=== PATIENT | male | born 1970 | race Caucasian/White ===

== ENCOUNTER → 2019-08-07 08:30 | Outpatient (BNVA) | payer MEDICAID, SELFPAY | PROVIDERS: PCP Nurse Practitioner Family; Visit Provider Internal Medicine Cardiovascular Disease | DX: E78.2 Mixed hyperlipidemia (principal) | CPT/HCPCS: 80061 ==

== ENCOUNTER 2019-09-19 08:47 | Outpatient (CLI) | payer MEDICAID, SELFPAY ==
--- NOTE | 2019-09-19 08:57 | CT_ITS ---
WS: [id number] CT CHEST WITHOUT INTRAVENOUS CONTRAST HISTORY: CHRONIC OBSTRUCTIVE PULMONARY DISEASE TECHNIQUE: Contiguous 2.5 mm axial imaging performed on the thorax. Coronal and sagittal reformats ar e submitted. All CT scans at [facility] use at least one of these dose optimization techn iques: automated exposure control; mA and/or kV adjustment per patient size (includes targeted exams where dose is matched to clinical indication); or iterative reconstruction. CONTRAST: None DLP: 1074.32 mGycm COMPARISON: 03/04/2017, CT abdomen 07/01/2019 Lungs and central airway: Marked pulmonary hyperexpansion. Numerous bulla and bleb noted throughout t he lungs but greatest in the upper lung coyne and greatest on the RIGHT. Largest bulla at the RIGHT apex measures 4.3 cm. No mass or pulmonary nodules. Benign granuloma in the LEFT lower lobe. 2 mm nod ule adjacent to the superior LEFT major fissure, likely a lymph node. Pleura: No pleural effusion. Heart and pericardium: Cardiac chamber size is normal. Small amount of pericardial thickening anterio rly. Mediastinum and emilie: No adenopathy. Vessels: Mild atherosclerosis aorta with no dilatation. Pulmonary artery size is equal to the aorta a nd normal in 2.4 cm. Moderate to heavy calcification in the [place] coronary arteries. Most significan t calcific burden is in the LEFT anterior descending coronary. Chest wall and lower neck: No soft tissue masses. Upper abdomen: Small hiatal hernia. Prior cholecystectomy. Decreased attenuation within the liver fro m hepatic steatosis. Liver is normal size. Spleen is normal size. No adrenal mass. Visualized pancrea s is normal. Low-attenuation mass in the mid RIGHT kidney measures 2.0 cm. There is an exophytic hyp odensity from the posterior mid LEFT kidney measuring 1.3 cm. Osseous structures: No destructive process. CT/CT chest wo con [id number] IMPRESSION: 1. Paraseptal and centrilobular emphysema and prior granulomatous disease. 2. No mass or pneumonia. 3. Moderate coronary artery atherosclerosis. 4. No pulmonary hypertension radiographically. 5. Prior cholecystectomy. 6. Low-attenuation masses in each kidney. Renal cysts were described on a CT f rom 07/01/2019.
== END 2019-09-19 08:48 | disposition home or self-care (01) ==
PROVIDERS: PCP Nurse Practitioner Family; Visit Provider Internal Medicine Critical Care Medicine
DX: J43.9 Emphysema, unspecified (principal); I25.10 Atherosclerotic heart disease of native coronary artery without angina pectoris; N28.89 Other specified disorders of kidney and ureter; Z90.49 Acquired absence of other specified parts of digestive tract
CPT/HCPCS: 71250

== ENCOUNTER 2019-10-06 10:04 | Outpatient (CLI) | payer MEDICAID, SELFPAY ==
--- NOTE | 2019-10-06 13:53 | PFTS_ITS ---
Date of Study:10/06/2019 Date of Dictation: MECHANICS: Forced vital capacity (FVC) is reduced. Forced expiratory volume in one second (FEV1) is reduced. FEV1/FVC is reduced. FLOW VOLUME LOOP: Reduced flow at all lung volumes. LUNG VOLUMES: Not measured DIFFUSING CAPACITY FOR CARBON MONOXIDE: Moderately reduced. INTERPRETATION: The pulmonary function tests are consistent with severe airflow obstruction. There is significant postbronchodilator response. Gas exchange (DLCO) is moderately reduced.. MTDD
== END 2019-10-06 10:05 | disposition home or self-care (01) ==
PROVIDERS: Family Provider Nurse Practitioner Family; PCP Nurse Practitioner Family; Visit Provider Internal Medicine Critical Care Medicine
DX: J44.9 Chronic obstructive pulmonary disease, unspecified (principal); F17.210 Nicotine dependence, cigarettes, uncomplicated
CPT/HCPCS: 94060; 94729; J7611

== ENCOUNTER 2019-10-07 10:00 | Outpatient (CLI) | payer MEDICAID, SELFPAY ==
--- NOTE | 2019-10-07 | XR_ITS ---
WS: [id number] KNEE RIGHT TECHNIQUE: 3 views of the right knee CLINICAL INFORMATION: CHRONIC RT KNEE PAIN COMPARISON: None. FINDINGS: Evidence of prior ACL repair. Mild narrowing of the medial lateral joint compartments with hypertroph ic changes along the joint line. Moderate narrowing of the patellofemoral articulation. No acute frac tures. No significant effusion. XR/XR knee RT 3V* [id number] IMPRESSION: Mild tricompartmental arthritis with evidence of prior ACL repair
== END 2019-10-07 10:01 | disposition home or self-care (01) ==
LOC: RADOUTREAD 10:44
PROVIDERS: Family Provider Nurse Practitioner Family; PCP Nurse Practitioner Family; Visit Provider Nurse Practitioner Family
DX: Z01.89 Encounter for other specified special examinations (principal)

== ENCOUNTER → 2019-11-07 09:01 | Outpatient (BNVA) | payer MEDICAID, SELFPAY | PROVIDERS: Family Provider Nurse Practitioner Family; PCP Nurse Practitioner Family; Referring Provider Nurse Practitioner Family; Visit Provider Orthopaedic Surgery | DX: M25.561 Pain in right knee (principal); M17.11 Unilateral primary osteoarthritis, right knee | CPT/HCPCS: 73560; 73565 ==

== ENCOUNTER 2020-01-08 11:47 | Emergency (ER) | payer MEDICAID, SELFPAY ==
[2020-01-08 12:09] VITALS: BP 96/67; PULSE 75; RESP 14; TEMP 36.3; O2SAT 97; BMI 31.4
--- NOTE | 2020-01-08 12:38 | XR_ITS ---
WS: [id number] Portable AP upright chest, 01/08/2020 Clinical Data: chest pain Comparison: PA and lateral chest, 07/04/2019. Findings: No nodules, masses or effusions are seen. The heart is normal. The pulmonary vascularity is not increased. No pneumonia or pneumothorax is seen. The patient's had an anterior cervical disc fus ion of the lower cervical spine. There is calcification between the left coracoid process and lateral left clavicle probably from an old injury. XR/XR chest 1V portable [id number] Impression: Negative chest.
[2020-01-08 13:46] LABS: Troponin(5th) Baseline 7 ng/L (0-15)
[2020-01-08 13:54] LABS: Alanine Aminotransferase 16 U/L (0-41); Albumin Level 4.4 g/dL (3.5-5.2); Alkaline Phosphatase 99 IU/L (40-130); Anion Gap 18.2 (5-19); Aspartate Amino Transferase 19 U/L (0-40); Blood Urea Nitrogen 8 mg/dL (6-20); Calcium 9.4 mg/dL (8.5-10.5); Carbon Dioxide 21 mmol/L (22-29); Chloride 105 mmol/L (98-107); Glomerular Filtration Rate 79.8 mL/min (90-130); Glucose 111 mg/dL (65-115); NT Pro B Type Natriuretic Pept 65 pg/mL (0-125); Osmolality Calculated 287 mOsm/kg (285-295); Potassium 4.2 mmol/L (3.5-5.1); Sodium 140 mmol/L (136-145); Total Bilirubin 0.6 mg/dL (0.15-1.2); Total Protein 7.4 g/dL (6.6-8.7)
[2020-01-08 15:27] LABS: Basophils # 0.1 10^3/uL (0.0-0.1); Basophils % 0.8 %; Eosinophils # 0.2 10^3/uL (0.0-0.8); Eosinophils % 2.2 %; Hematocrit 45.6 % (42.0-52.0); Hemoglobin 14.6 g/dL (11.7-16.6); Lymphocytes # 2.8 10^3/uL (0.8-4.8); Lymphocytes % 26.8 %; Mean Corpuscular Hemoglobin 32.3 pg (28.0-34.0); Mean Corpuscular Volume 100.9 fL (80-94); Mean Platelet Volume 9.5 fL (7.4-10.4); Monocytes # 0.7 10^3/uL (0.2-0.9); Monocytes % 6.9 %; Neutrophils # 6.5 10^3/uL (1.8-7.7); Neutrophils % 62.8 %; Nucleated Red Blood Cells % 0 %; Platelet Count 218 10^3/cmm (130-400); Red Blood Count 4.52 10^6/uL (4.1-5.3); White Blood Count 10.3 10^3/uL (4.0-10.0)
[2020-01-08 15:47] LABS: Troponin 5 2HR 7.47 ng/L (0-15); Troponin 5 2HR Delta 0.47 ABS# (0-10)
--- NOTE | 2020-01-08 15:48 | W.ED.SOB ---
HPI - SOB/Dyspnea General: Chief Complaint: Shortness of Breath/Dyspnea Stated Complaint: SOB Time Seen by Provider: 01/08/20 15:44 Source: patient Mode of arrival: ambulatory Limitations: no limitations History of Present Illness: HPI Narrative: Patient is a 49-year-old male who presents to ED today with a complaint of shortness of breath over the past 4 to 5 days. Patient chronically has shortness of breath due to predominant centrilobular and bullous emphysema. He has an extensive smoking history although states he is cutting back on this. His last cigarette was yesterday. Patient saw pulmonology/Dr. Champagne last month. He is supposed to be doing Pulmicort nebulizers twice daily and duo nebs 4 times daily. Patient admittedly does not do these as frequently as prescribed. He admits to a productive cough since last . He has not been running fevers. MD elicited complaint: shortness of breath and cough Pertinent past history: COPD Onset (ago): day(s) Associated symptoms: Reports chest congestion; Deny abdominal pain, chest pain, fever(s), lightheadedness, nausea, orthopnea, palpitations, syncope or vomiting Review of Systems Const: Denies: fever(s) or chills Eyes: Denies: change in vision or blurry vision ENMT: Denies: throat pain, enlarged tonsils or odynophagia Card: Denies: chest pain, palpitations, irregular heart rhythm, edema, swelling of feet/ankles, lightheadedness, syncope, pre-syncope, dyspnea on exertion, orthopnea, leg pain with exertion or acrocyanosis Resp: Reports: dyspnea, productive cough and chest congestion; Denies: wheezing, stridor or pain on inspiration GI: Denies: abdominal pain, nausea, vomiting, heartburn or diarrhea : Denies: flank pain, difficulty urinating or dysuria Musc: Denies: neck pain, back pain or joint pain Skin/Breast: Denies: rash Neuro: Denies: headache(s), numbness in extremities, weakness in extremities or sensory changes PFS ED PFSH: Medical History (Updated 01/08/20 @ 16:29 by JOSE Herrera) Anxiety and depression Atherosclerotic heart disease of [place] coronary artery without angina pectoris Cervical spondylosis Chronic migraine Chronic shortness of breath Essential (primary) hypertension Heart attack Hx of coronary angiogram Mixed hyperlipidemia Osteoarthritis Radiculopathy, lumbar region Seizure disorder SOB (shortness of breath) Torsion of appendix testis Surgical History H/O chest tube placement H/O left knee surgery H/O neck surgery H/O removal of testicle H/O right knee surgery History of appendectomy History of cholecystectomy Stented coronary artery Family History Brother Parkinson disease Cancer Family/Other Cancer Other CAD (coronary artery disease) Social History Smoking and tobacco status: current every day smoker cigarettes Years cigarettes smoked: 35 Quit status (tobacco): quit date established Planned quit date: 12/29/19 Smoking risk assessment/counseling performed?: Yes Alcohol intake: former Year of sobriety/quit date alcohol: 2009 Lives independently: Yes Household members: significant other Current occupational status: disabled History of recent travel: No Current gender identity: Male Physical Exam Const: COMMON NORMALS: no acute distress, patient oriented x3, no limitations and alert NUTRITIONAL APPEARANCE: obese HENMT: COMMON NORMALS: normocephalic and atraumatic HEAD & SCALP: normocephalic and atraumatic Chest: COMMONS NORMALS: normal inspection of the chest and normal palpation of entire chest wall Resp: COMMON NORMALS: normal respiratory effort EFFORT & INSPECTION: Yes able to speak in complete sentences AUSCULTATION: diminished lung sounds diffuse Cardio: COMMON NORMALS: regular rate and regular rhythm RATE: regular rate RHYTHM: regular rhythm Extremity: COMMON NORMALS: no clubbing, cyanosis or edema, no calf tenderness and no pedal edema Neuro: COMMON NORMALS: patient oriented x3 SENSORIUM/ORIENTATION: Yes alert Skin: COMMON NORMALS: no rashes or lesions noted GENERAL SKIN EXAM: no rashes or lesions noted Course Vital Signs: Vital signs: Vital Signs Temperature 97.4 F L 01/08/20 12:09 Pulse Rate 68 01/08/20 16:21 Respiratory Rate 16 01/08/20 16:10 Blood Pressure 96/67 01/08/20 12:09 Pulse Oximetry 95 01/08/20 16:10 MDM - SOB/Dyspnea MDM Narrative: Medical decision making narrative: Patient's labs including CBC, CMP, BNP, and troponin are all essentially normal at this time. CXR showing no acute findings. Patient is not febrile, tachycardic, or hypoxic. He unfortunately is continuing to smoke. He admittedly is not doing his nebulizer treatments as they are scheduled. Patient will be treated with Solu-Medrol and a DuoNeb treatment here and discharged home with a steroid taper and antibiotics. Recommend he contact Dr. Champagne as soon as possible for reevaluation. Return to ED precautions given. Lab Data: Labs: Lab Results 01/08/20 01/08/20 01/08/20 Range/Units 13:13 13:13 15:18 WBC (4.0-10.0) 10^3/ uL RBC (4.1-5.3) 10^6/u L Hgb (11.7-16.6) g/dL Hct (42.0-52.0) % MCV (80-94) fL MCH (28.0-34.0) pg MCHC (30.0-36.0) g/dL RDW (12.1-15.1) % Plt Count (130-400) 10^3/c mm MPV (7.4-10.4) fL Neut % (Auto) % Lymph % (Auto) % Whitley % (Auto) % Eos % (Auto) % Baso % (Auto) % Neut # (Auto) (1.8-7.7) 10^3/u L Lymph # (Auto) (0.8-4.8) 10^3/u L Whitley # (Auto) (0.2-0.9) 10^3/u L Eos # (Auto) (0.0-0.8) 10^3/u L Baso # (Auto) (0.0-0.1) 10^3/u L Nucleated RBC % (a uto) % Nucleated RBCs # /100WBC Sodium 140 (136-145) mmol/L Potassium 4.2 (3.5-5.1) mmol/L Chloride 105 (98-107) mmol/L Carbon Dioxide 21 L (22-29) mmol/L Anion Gap 18.2 (5-19) BUN 8 (6-20) mg/dL Creatinine 1.0 (0.7-1.2) mg/dL GFR Calculation 79.8 L (90-130) mL/min Glucose 111 (65-115) mg/dL Calculated Osmolal ity 287 (285-295) mOsm/k g Calcium 9.4 (8.5-10.5) mg/dL Total Bilirubin 0.6 (0.15-1.2) mg/dL AST 19 (0-40) U/L ALT 16 (0-41) U/L Alkaline Phosphata se 99 (40-130) IU/L Troponin T Baselin e 7 (0-15) ng/L Troponin T 120 Min [place] 7.47 (0-15) ng/L Delta Troponin T 0.47 (0-10) ABS# NT-Pro-B Natriuret Pep 65 (0-125) pg/mL Total Protein 7.4 (6.6-8.7) g/dL Albumin 4.4 (3.5-5.2) g/dL Globulin 3.0 (1.3-4.6) g/dL 01/08/20 Range/Units 15:18 WBC 10.3 H (4.0-10.0) 10^3/ uL RBC 4.52 (4.1-5.3) 10^6/u L Hgb 14.6 (11.7-16.6) g/dL Hct 45.6 (42.0-52.0) % MCV 100.9 H (80-94) fL MCH 32.3 (28.0-34.0) pg MCHC 32.0 (30.0-36.0) g/dL RDW 12.0 L (12.1-15.1) % Plt Count 218 (130-400) 10^3/c mm MPV 9.5 (7.4-10.4) fL Neut % (Auto) 62.8 % Lymph % (Auto) 26.8 % Whitley % (Auto) 6.9 % Eos % (Auto) 2.2 % Baso % (Auto) 0.8 % Neut # (Auto) 6.5 (1.8-7.7) 10^3/u L Lymph # (Auto) 2.8 (0.8-4.8) 10^3/u L Whitley # (Auto) 0.7 (0.2-0.9) 10^3/u L Eos # (Auto) 0.2 (0.0-0.8) 10^3/u L Baso # (Auto) 0.1 (0.0-0.1) 10^3/u L Nucleated RBC % (a uto) 0 % Nucleated RBCs # 0.0 /100WBC Sodium (136-145) mmol/L Potassium (3.5-5.1) mmol/L Chloride (98-107) mmol/L Carbon Dioxide (22-29) mmol/L Anion Gap (5-19) BUN (6-20) mg/dL Creatinine (0.7-1.2) mg/dL GFR Calculation (90-130) mL/min Glucose (65-115) mg/dL Calculated Osmolal ity (285-295) mOsm/k g Calcium (8.5-10.5) mg/dL Total Bilirubin (0.15-1.2) mg/dL AST (0-40) U/L ALT (0-41) U/L Alkaline Phosphata se (40-130) IU/L Troponin T Baselin e (0-15) ng/L Troponin T 120 Min [place] (0-15) ng/L Delta Troponin T (0-10) ABS# NT-Pro-B Natriuret Pep (0-125) pg/mL Total Protein (6.6-8.7) g/dL Albumin (3.5-5.2) g/dL Globulin (1.3-4.6) g/dL Imaging Data^: CXR: Radiologist's impression: [address] [address] XRay Report Signed Patient: Josue Cheng Unit #: [id number] : 1970 Age/Sex: 49 / M ADM Date: 01/08/20 Loc: ER Room/Bed: Attending Dr: Ordering Provider/Ordering MD: Marlen Alanis Date of Service: 01/08/20 Procedure(s): XR chest 1V portable [id number] Accession Number(s): [id number] Report Number: [id number] WS: [id number] Portable AP upright chest, 01/08/2020 Clinical Data: chest pain Comparison: PA and lateral chest, 07/04/2019. Findings: No nodules, masses or effusions are seen. The heart is normal. The pulmonary vascularity is not increased. No pneumonia or pneumothorax is seen. The patient's had an anterior cervical disc fusion of the lower cervical spine. There is calcification between the left coracoid process and lateral left clavicle probably from an old injury. XR/XR chest 1V portable [id number] Impression: Negative chest. Dictated By: Amanda Solorzano MD Signed By: Amanda Solorzano MD Signed Date/Time: 01/08/20 1331 DD/ 1329 EKG Data^: EKG 1: EKG Interpretation Date: 01/08/20 EKG interpretation time: 14:19 Interpretation: Sinus rhythm Rate [address] elevation or depression changes noted Discharge Plan Discharge Patient Disposition: Home, Self-Care Clinical Impression: COPD with acute exacerbation Condition: Stable Prescriptions: New prednisone 10 mg tablet 10 mg PO DAILY 7 Days Qty: 27 RF: 0 doxycycline monohydrate 100 mg capsule 100 mg PO Q12H 10 Days Qty: 20 RF: 0 No Action ezetimibe [Zetia] 10 mg tablet 10 mg PO QDAY RF: 0 metoprolol succinate 25 mg tablet extended release 24 hr 12.5 mg PO BID RF: 0 buspirone 30 mg tablet 30 mg PO BID RF: 0 fenofibrate nanocrystallized 48 mg tablet 48 mg PO QDAY RF: 0 clopidogrel 75 mg tablet 75 mg PO QDAY RF: 0 famotidine [Pepcid] 20 mg tablet 20 mg PO BID RF: 0 isosorbide mononitrate 30 mg tablet extended release 24 hr 30 mg PO QAM RF: 0 atorvastatin 80 mg tablet 80 mg PO QDAY RF: 0 quetiapine 50 mg tablet 50 mg PO QDAY RF: 0 aspirin [Adult Aspirin Regimen] 81 mg tablet,delayed release (DR/EC) 81 mg PO QDAY RF: 0 zonisamide 100 mg capsule 400 mg PO QDAY RF: 0 tamsulosin 0.4 mg capsule 0.4 mg PO QDAY RF: 0 nitroglycerin [Nitrostat] 0.4 mg tablet, sublingual 0.4 mg SUBLINGUAL Q5M PRNRF: 0 esomeprazole magnesium [Nexium] 40 mg capsule,delayed release(DR/EC) 40 mg PO QDAY RF: 0 omega-3 fatty acids 1,000 mg capsule 1,000 mg PO QDAY RF: 0 albuterol sulfate 2.5 mg /3 mL (0.083 %) solution for nebulization 2.5 mg INHALATION Q4H PRNRF: 0 albuterol sulfate [ProAir HFA] 90 mcg/actuation HFA aerosol inhaler 2 puff INHALATION Q6H PRNRF: 0 celecoxib [Celebrex] 200 mg capsule 200 mg PO BID RF: 0 budesonide [Pulmicort] 0.5 mg/2 mL suspension for nebulization 0.25 mg INHALATION BID RF: 0 ipratropium-albuterol 0.5 mg-3 mg(2.5 mg base)/3 mL solution for nebulization 3 ml INHALATION QID PRNRF: 0 furosemide [Lasix] 20 mg tablet 10 mg PO QAM PRNRF: 0 potassium chloride [Klor-Con 10] 10 mEq tablet extended release 10 meq PO QDAY PRNRF: 0 clonazepam 1 mg tablet 1 mg PO QID RF: 0 Perforomist 20 mcg/2 mL solution for nebulization 2 ml INHALATION Q12H 30 Days Qty: 120 RF: 3 revefenacin 175 mcg/3 mL solution for nebulization 175 mcg INHALATION DAILY 30 Days Qty: 90 RF: 3 nicotine 21 mg/24 hr patch 24 hour 1 patch TRANSDERMA Q24H 90 Days Qty: 28 RF: 3 Discharge Orders: Discharge Order (Routine); Ordered 01/08/20 Ordered By: Marlen Alanis Referrals: Amanda Simon FNP [Primary Care Provider] - Sushma Champagne MD [Physician] - Patient Instructions: Chronic Obstructive Pulmonary Disease (ED) Activity Restrictions/Additional Instructions: Please follow-up with Dr. Champagne soon as possible. Begin taking your nebulizers as scheduled. STOP SMOKING. You may return to the emergency department for worsening shortness of breath, difficulty breathing, chest pain, any other concerns you may have. Coding Level of Care Code ED Nurse'S Companion for 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
[2020-01-08 16:10] VITALS: PULSE 64; RESP 16; O2SAT 95
[2020-01-08] MEDS: ipratropium-albuterol 3 mL Neb INHALATION (16:18)
[2020-01-08 16:21] VITALS: PULSE 68
[2020-01-08 16:45] VITALS: BP 100/65; PULSE 76; RESP 20; O2SAT 97
--- NOTE | 2020-01-08 18:38 | ECG_ITS ---
Measurements Intervals [place] Rate: 66 P: 80 [place]: 168 QRS: 95 QRSD: 89 T: 57 QT: 363 QTc: 381 SINUS RHYTHM BORDERLINE RIGHT AXIS DEVIATION [QRS AXIS > 90] Compared to ECG 06/25/2019 02:01:41 T-wave abnormality no longer present Electronically Signed On 01-08-2020 21:02:40 CDT by Placido Garza M.D. [email or web address]
--- NOTE | 2020-01-09 10:13 | DCPLANNER ---
associate project manager had message to schedule a follow up appointment for patient with Dr. Champagne. associate project manager called [facility], spoke with Luana, gave clinic patients information. associate project manager was told that patients information would be printed and reviewed. Clinic will call patient with appointment information.
--- NOTE | 2020-01-13 10:19 | DCPLANNER ---
Patient had a follow up appointment scheduled for 01.13.20 with [facility], patient did attend the appointment.
== END 2020-01-08 16:47 | disposition home or self-care (01) ==
PROVIDERS: Emergency Provider Physician Assistant; PCP Nurse Practitioner Family
DX: J44.1 Chronic obstructive pulmonary disease with (acute) exacerbation (principal); Z79.02 Long term (current) use of antithrombotics/antiplatelets; Z79.82 Long term (current) use of aspirin; I10 Essential (primary) hypertension; E78.2 Mixed hyperlipidemia; F17.210 Nicotine dependence, cigarettes, uncomplicated
CPT/HCPCS: 12345; 36415; 71045; 80053; 83880; 84484; 85025; 93005; 94640; 96372; 99281; 99283; J2930

== ENCOUNTER → 2020-03-30 09:00 | Outpatient (BNVA) | payer MEDICAID, SELFPAY | PROVIDERS: PCP Nurse Practitioner Family; Visit Provider Internal Medicine | DX: Z11.59 Encounter for screening for other viral diseases (principal) | CPT/HCPCS: 87635 ==

== ENCOUNTER 2020-04-01 05:59 | Day surgery (SDC) | payer MEDICAID, SELFPAY ==
[2020-03-31 12:27] VITALS: BMI 32.8
[2020-04-01] VITALS (10 sets, daily range): BP systolic 89–115; BP diastolic 49–75; PULSE 45–78; RESP 15–20; TEMP 36.1–36.3; O2SAT 97–100
[2020-04-01] MEDS: sodium chloride 0.9% 1,000 ML 30 ML IV (06:00)
--- NOTE | 2020-04-01 06:39 | ANES.PREANE2 ---
Pre-Anesthetic Assessment Pre-Anesthetic Assessment: Height/Weight: Height 1.7 m Weight 95.254 kg Temp Pulse Resp BP Pulse Ox 97 F L 78 18 106/75 97 04/01/20 06:00 04/01/20 06:00 04/01/20 06:00 04/01/20 06:00 04/01/20 06:00 Preop Diagnosis: Osteoarthritis right knee Proposed Procedure: Operation Date: 04/01/20 07:00 Proposed Procedures p Knee Arthroscopy 23913 M17.11(Right) - Ismael Abel MD Familial anesthetic complications: none Was Beta Enriqueta taken within 24 hours: N/A Last intake: Intake NPO > 8 hrs Last Liquid Date 03/31/20 Last Solid Date 03/31/20 Social: Comment: former smoker (quit january 07) Exam: Pre-Anes Outpt Exam: alert, oriented x 3, clear to auscultation bilaterally and regular rate & rhythm Airway: Cervical ROM: Other (pins in neck, mod limited extension) MP: 4 Dentition: Other (missing) Additional comments: large neck circumference and tongue Pulmonary: Pulmonary: COPD Comments: very severe copd- may require lung transplant and has bullous disease CV/HEM: CV/HEM: Afib, CAD (2011 - plavix last taken ), HTN and OH Comments: recent visit to cardiology shows patent stents Metabolic: Metabolic: Morbid obesity Neuropsych: Neuropsych: Seizure (d/t gabapenting and tramadol) Anesthetic Plan: ASA status: 3 Risk of > 500 ml blood loss (7ml/kg in children): No PFSH Anesthesia PFSH: Medical History (Updated 03/02/20 @ 09:24 by Ismael Abel MD) Anxiety and depression Atherosclerotic heart disease of [place] coronary artery without angina pectoris Cervical spondylosis Chronic migraine Chronic shortness of breath Essential (primary) hypertension Heart attack Hx of coronary angiogram Mixed hyperlipidemia Osteoarthritis Radiculopathy, lumbar region Seizure disorder SOB (shortness of breath) Torsion of appendix testis Surgical History (Updated 03/02/20 @ 09:24 by Ismael Abel MD) H/O chest tube placement H/O left knee surgery H/O neck surgery H/O removal of testicle H/O right knee surgery History of appendectomy History of cholecystectomy Stented coronary artery Family History Brother Parkinson disease Cancer Family/Other Cancer Other CAD (coronary artery disease) Social History Smoking and tobacco status: former smoker Quit status (tobacco): has quit using tobacco Year quit tobacco: 2020 - 1PPD x 35 Years Smoking risk assessment/counseling performed?: Yes Alcohol intake: former Year of sobriety/quit date alcohol: 2009 Lives independently: Yes Household members: significant other Current occupational status: disabled History of recent travel: No Current gender identity: Male Data Anesthesia Cardiac Studies: No Data to Display
--- NOTE | 2020-04-01 06:55 | W.PM.OPSUD ---
Surgery/Procedure H&P Update DATE OF PROCEDURE: April 01, 2020 DATE H&P PERFORMED: 03/02/20 PREOP DIAGNOSIS: Osteoarthritis right knee PLANNED PROCEDURE: Operation Date: 04/01/20 07:00 Proposed Procedures p Knee Arthroscopy 64362 M17.11(Right) - Ismael Abel MD
--- NOTE | 2020-04-01 08:22 | SUR.PHASEI ---
PT AWAKE ALERT ON RA PT WAS A SPINAL ANESTHESIA, PT HAS NORMAL SENSATION TO T7 LEVEL VSS HR SB
--- NOTE | 2020-04-01 08:28 | SUR.PHASEI ---
SPINAL LEVEL NOW AT T-8 LEVEL, PT UNABLE TO MOVE TOES STILL, PT TAKING OCC ICE CHIPS HR SB NO ECTOPY , SATS 98% ON RA.
--- NOTE | 2020-04-01 08:29 | P.OP_ITS ---
Operative Report Date of procedure: April 01, 2020 Pre-op Diagnosis: Osteoarthritis right knee Post-op diagnosis: same Post-op Diagnosis: Complex degenerative tear right lateral meniscus, chondromalacia medial femoral condyle, lateral femoral condyle, patella and trochlea Post-op Findings: Same Procedure Done: Arthroscopic partial right lateral meniscectomy, chondroplasty right medial femoral condyle, patella, trochlea, lateral femoral condyle Implants: None Pathology: none sent Surgeon: Ismael Abel Anesthesia: General Estimated blood loss (mL): 5 Tourniquet time (min): 0 Complications: None Findings: The patient had complex tearing following the entirety of the poste rior lateral meniscus. He had areas of exposed subchondral bone over the substantial portion of the lateral femoral condyle with surrounding unstable margins and an approximately 2 x 2 centimeter area over the medial femoral condyle weightbearing aspect with surrounding unstable flaps and fissures.. He had exposed subchondral bone globally throughout the trochlea and fibrillation and fraying about the patella Condition: stable Disposition: PACU Procedure: The patient was taken to the operating room and given a spinal anesthesia. He was given 2 g of Ancef. His knee was infiltrated with 30 cc of 0.5% Marcaine. He was prepped and draped in the usual fashion. A timeout was performed. The knee was entered to the medial lateral portals. Initial attention was paid to the medial compartment. Over the central weightbearing aspect area of full-thickness cartilage loss with peripheral unstable flaps and fissures was identified. Utilizing the Bennett [employer] Nephew Werewolf probe the cartilage was debrided back to a stable margins leaving an approximately 2 cm in diameter area of central exposed subchondral bone. The leg was then placed in a [id number]-axau position attention focused on the lateral compartment. The lateral meniscus was probed revealing complex tearing. A central degenerative longitudinal tear created unstable central fragment in the posterior meniscus. Utilizing a basket this was debrided back and incisor shaver was used to remove all unstable torn tissue. The rim was then cleaned up with the werewolf probe. This resulted in near total excision of the posterior third of the lateral meniscus. Next attention was focused to the lateral femoral condyle. Utilizing a werewolf probe unstable margins about the area of lateral meniscal chondromalacia were debrided back to a stable rim. Fibrillation and fraying over the medial tibial plateau were similarly debrided. Final attention was focused on the patella. Peripheral unstable cartilage about the trochlea was debrided back with the Bennett [employer] Nephew Werewolf probe areas of full-thickness cartilage loss through the trochlea were noted centrally. Final debridement about the patella medially and laterally removing frayed and fibrillated tissues was accomplished with the Ebnnett and Nephew Werewolf probe as well. The knee was irrigated with saline. Portals were closed with 3-0 Prolene. Sterile dressings were applied. The patient was taken to recovery room in stable condition.
--- NOTE | 2020-04-01 08:48 | SUR.PHASEI ---
0840 PT AWAKE ALERT SITTING AT 45 DEGREES T13 SPINAL LEVEL NOW PT MOVING BILAT THIGHS PT TO OPS HANDOFF AT BEDSIDE
--- NOTE | 2020-04-01 09:20 | ANE.PACU2 ---
Inpatient post-anesthesia follow up: Airway intact: Yes Vital signs: Temperature 97.4 F Pulse Rate 51 Respiratory Rate 18 Blood Pressure 114/64 Pulse Oximetry 99 Oxygen Delivery Me thod Room Air Oxygen Flow Rate Fraction of Inspir ed Oxygen Hydration adequate: Yes Nausea and vomiting: No Pain level: 1 Mental status: Baseline
== END 2020-04-01 11:00 | disposition home or self-care (01) ==
PROVIDERS: PCP Nurse Practitioner Family; Visit Provider Orthopaedic Surgery
PROC: (CPT 29870; principal; 2020-04-01 07:00)
DX: S83.271A Complex tear of lateral meniscus, current injury, right knee, initial encounter (principal); M17.11 Unilateral primary osteoarthritis, right knee; J44.9 Chronic obstructive pulmonary disease, unspecified; I48.91 Unspecified atrial fibrillation; I25.10 Atherosclerotic heart disease of native coronary artery without angina pectoris; Z79.02 Long term (current) use of antithrombotics/antiplatelets; I10 Essential (primary) hypertension; I25.2 Old myocardial infarction; E66.01 Morbid (severe) obesity due to excess calories; E78.2 Mixed hyperlipidemia; G40.909 Epilepsy, unspecified, not intractable, without status epilepticus; Z95.5 Presence of coronary angioplasty implant and graft; Z87.891 Personal history of nicotine dependence; Z68.32 Body mass index [BMI] 32.0-32.9, adult
CPT/HCPCS: 29881; 12345; J0330; J0690; J2250; J2405; J2704; J3010; J3490; J7030

== ENCOUNTER 2020-05-02 11:49 | Emergency (ER) | payer MEDICAID, SELFPAY ==
[2020-05-02 11:59] VITALS: BP 125/91; PULSE 82; RESP 14; TEMP 36.1; O2SAT 98; BMI 31.3
== END 2020-05-02 12:47 | disposition left against medical advice (07) ==
LOC: ER 12:51
PROVIDERS: PCP Nurse Practitioner Family
DX: Z53.21 Procedure and treatment not carried out due to patient leaving prior to being seen by health care provider (principal)
CPT/HCPCS: 99281

== ENCOUNTER 2020-05-05 19:22 | Emergency (ER) | payer MEDICAID, SELFPAY ==
[2020-05-05] VITALS (8 sets, daily range): BP systolic 104–147; BP diastolic 73–89; PULSE 62–80; RESP 14–18; TEMP 36.6; O2SAT 93–97; BMI 31.3
[2020-05-05 19:52] LABS: Basophils # 0.1 10^3/uL (0.0-0.1); Basophils % 0.4 %; Eosinophils % 0.1 %; Hematocrit 45.1 % (42.0-52.0); Hemoglobin 15.7 g/dL (11.7-16.6); Lymphocytes # 2.3 10^3/uL (0.8-4.8); Lymphocytes % 16.2 %; Mean Corpuscular HGB Conc 34.8 g/dL (30.0-36.0); Mean Corpuscular Hemoglobin 32.6 pg (28.0-34.0); Mean Corpuscular Volume 93.6 fL (80-94); Mean Platelet Volume 9.3 fL (7.4-10.4); Monocytes # 0.9 10^3/uL (0.2-0.9); Neutrophils # 10.82 10^3/uL (1.8-7.7); Neutrophils % 76.9 %; Nucleated Red Blood Cells % 0 %; Platelet Count 307 10^3/cmm (130-400); Red Blood Count 4.82 10^6/uL (4.1-5.3); Red Cell Distribution Width 11.5 % (12.1-15.1); White Blood Count 14.1 10^3/uL (4.0-10.0)
--- NOTE | 2020-05-05 19:59 | CTR_ITS ---
PROCEDURE INFORMATION: Exam: CT Abdomen And Pelvis With Contrast Exam date and time: 05/05/2020 9:39 PM Age: 49 years old Clinical indication: Nausea and vomiting; Prior surgery; Surgery type: Appy, cabg, gb; Additional info: Abd pain TECHNIQUE: Imaging protocol: Computed tomography of the abdomen and pelvis with intravenous contrast. Radiation optimization: All CT scans at this facility use at least one of these dose optimization techniques: automated exposure control; mA and/or kV adjustment per patient size (includes targeted exams where dose is matched to clinical indication); or iterative reconstruction. Contrast material: OMNI 300; Contrast volume: 95 ml; Contrast route: INTRAVENOUS (IV); COMPARISON: CT abdomen pelvis w con* [id number] 07/01/2019 8:15 PM RADIATION DOSE METRICS: Total DLP (mGy-cm): 928.19 FINDINGS: Lungs: The lung bases are clear. Liver: The liver is mildly fatty. Gallbladder and bile ducts: The gallbladder is surgically absent. Pancreas: Normal. No ductal dilation. Spleen: Normal. No splenomegaly. Adrenals: Normal. No mass. Kidneys and ureters: Bilateral scattered simple renal cortical cysts up to 2.4 cm on the right. No significant change and follow-up is not recommended. Stomach and bowel: Scattered noninflamed distal colonic diverticula. The stomach is unremarkable. The duodenum and small bowel are normal. Surgical suture on the cecal tip is consistent with appendectomy. Appendix: No evidence of appendicitis. Intraperitoneal space: Unremarkable. No free air. No significant fluid collection. Vasculature: Scattered calcified plaques in the aorta and iliac arteries. Lymph nodes: Unremarkable. No enlarged lymph nodes. Urinary bladder: The urinary bladder wall is thickened similar to last year. This suggests chronic inflammation. Reproductive: Unremarkable as visualized. Bones/joints: Unremarkable. No acute fracture. Soft tissues: Unremarkable. CT/CT abdomen pelvis w con* [id number] IMPRESSION: 1. No acute abdominopelvic findings. 2. Chronic and incidental findings as described COMMENTS: Consistent with the [employer]'s Incidental Findings Committee white paper (J Am Diane Radiol 2018): Any incidental renal lesion less than 1 cm or classified as too small to characterize, or any incidental cystic renal lesion characterized as simple-appearing, is likely benign. No follow-up imaging is recommended for these lesions per consensus recommendations based on imaging criteria. Radiation Dose CTDIVOL = (mGy): DLP = 928.19 (mGy-cm)
[2020-05-05 20:08] LABS: Alanine Aminotransferase 30 U/L (0-41); Alkaline Phosphatase 81 IU/L (40-130); Anion Gap 19.4 (5-19); Aspartate Amino Transferase 28 U/L (0-40); Blood Urea Nitrogen 26 mg/dL (6-20); Carbon Dioxide 17 mmol/L (22-29); Chloride 99 mmol/L (98-107); Globulin 2.9 g/dL (1.3-4.6); Glomerular Filtration Rate 64.6 mL/min (90-130); Glucose 147 mg/dL (65-115); Lipase 27 U/L (13-60); Osmolality Calculated 281 mOsm/kg (285-295); Potassium 3.4 mmol/L (3.5-5.1); Sodium 132 mmol/L (136-145); Total Bilirubin 1.1 mg/dL (0.15-1.2); Total Protein 7.9 g/dL (6.6-8.7)
--- NOTE | 2020-05-05 20:08 | W.ED.NAVMDI ---
HPI - Nausea/Vomiting/Diarrhea General: Chief complaint: Nausea/Vomiting/Diarrhea Stated complaint: VOMITING X 5 DAYS Time Seen by Provider: 05/05/20 19:57 Source: patient Mode of arrival: ambulatory Limitations: no limitations History of Present Illness: HPI Narrative: 49-year-old male 49-year-old male states he is been having nausea and vomiting along with diarrhea over the last 5 days. He states his diarrhea is mostly resolved but is continued to have vomiting. He states he has a diffuse abdominal pain as well he rates a 5 out of 10. Denies any worsening or improving factors. Associated nausea: Yes Associated symtoms: Reports nausea; Denies chest pain, dysuria or headache(s) Review of Systems Const: Denies: fever(s), chills, body aches or change in appetite Eyes: Denies: blurry vision or eye discomfort ENMT: Denies: throat pain or dental pain Card: Denies: chest pain Resp: Denies: dyspnea GI: Reports: abdominal pain, nausea and vomiting : Denies: dysuria Musc: Denies: neck pain or back pain Skin/Breast: Denies: rash Neuro: Denies: headache(s) Psych: Denies: depression [place]/Lymph: Denies: easy bruising All/Imm: Denies: urticaria PFSH ED PFSH: Medical History Anxiety and depression Atherosclerotic heart disease of [place] coronary artery without angina pectoris Cervical spondylosis Chronic migraine Chronic shortness of breath Essential (primary) hypertension Heart attack Hx of coronary angiogram Mixed hyperlipidemia Osteoarthritis Radiculopathy, lumbar region Seizure disorder SOB (shortness of breath) Torsion of appendix testis Surgical History H/O chest tube placement H/O left knee surgery H/O neck surgery H/O removal of testicle H/O right knee surgery History of appendectomy History of cholecystectomy Stented coronary artery Family History Brother Parkinson disease Cancer Family/Other Cancer Other CAD (coronary artery disease) Social History Smoking and tobacco status: former smoker Quit status (tobacco): has quit using tobacco Year quit tobacco: 2019 - 1PPD x 35 Years Smoking risk assessment/counseling performed?: Yes Alcohol intake: former Year of sobriety/quit date alcohol: 2009 Lives independently: Yes Household members: significant other Current occupational status: disabled History of recent travel: No Current gender identity: Male Physical Exam Const: COMMON NORMALS: no acute distress, patient oriented x3 and healthy appearing HENMT: COMMON NORMALS: normocephalic and atraumatic HEAD & SCALP: normocephalic and atraumatic Eye: COMMON NORMALS: Equal, round and reactive pupils present and EOMs intact bilaterally PUPIL: Yes Equal, round and reactive pupils present Neck/C-Spine: COMMON NORMALS: full ROM and supple Chest: COMMONS NORMALS: normal inspection of the chest and normal palpation of entire chest wall Resp: COMMON NORMALS: normal respiratory effort, No retractions, No use of accessory muscles and clear to auscultation bilaterally AUSCULTATION: clear to auscultation bilaterally Cardio: COMMON NORMALS: regular rate, regular rhythm and No murmurs present (Cardio) RATE: regular rate RHYTHM: regular rhythm GI: COMMON NORMALS: Normal to inspection, nondistended, normoactive bowel sounds present, Soft to palpation, non-tender and no masses PALPATION: Yes Soft to palpation Extremity: COMMON NORMALS: normal to inspection and full ROM Neuro: COMMON NORMALS: patient oriented x3, moves all extremities and no focal motor deficits Psych: COMMON NORMALS: mental status grossly normal, Normal thought process present and cooperative THOUGHT PROCESS: Normal thought process present Skin: COMMON NORMALS: no rashes or lesions noted and no wounds GENERAL SKIN EXAM: no rashes or lesions noted Course Vital Signs: Vital signs: Vital Signs Temperature 97.8 F 05/05/20 19:46 Pulse Rate 71 05/05/20 23:55 Respiratory Rate 16 05/05/20 23:55 Blood Pressure 104/77 05/05/20 23:55 Pulse Oximetry 97 05/05/20 23:55 MDM - Nausea/Vomiting/Diarrhea MDM Narrative: Medical decision making narrative: Number presents here with abdominal pain. Patient's blood work and CT here are all normal and he feels much improved. We will place him on nausea medicine. He is to follow-up his PCP and return if worsening. He understands agrees to plan. Lab Data: Labs: Lab Results 05/05/20 05/05/20 Range/Units 19:43 19:43 WBC 14.1 H (4.0-10.0) 10^3/ uL RBC 4.82 (4.1-5.3) 10^6/u L Hgb 15.7 (11.7-16.6) g/dL Hct 45.1 (42.0-52.0) % MCV 93.6 (80-94) fL MCH 32.6 (28.0-34.0) pg MCHC 34.8 (30.0-36.0) g/dL RDW 11.5 L (12.1-15.1) % Plt Count 307 (130-400) 10^3/c mm MPV 9.3 (7.4-10.4) fL Neut % (Auto) 76.9 % Lymph % (Auto) 16.2 % [place] % (Auto) 6.0 % Eos % (Auto) 0.1 % Baso % (Auto) 0.4 % Neut # (Auto) 10.82 H (1.8-7.7) 10^3/u L Lymph # (Auto) 2.3 (0.8-4.8) 10^3/u L [place] # (Auto) 0.9 (0.2-0.9) 10^3/u L Eos # (Auto) 0.0 (0.0-0.8) 10^3/u L Baso # (Auto) 0.1 (0.0-0.1) 10^3/u L Nucleated RBC % (a uto) 0 % Nucleated RBCs # 0.0 /100WBC Sodium 132 L (136-145) mmol/L Potassium 3.4 L (3.5-5.1) mmol/L Chloride 99 (98-107) mmol/L Carbon Dioxide 17 L (22-29) mmol/L Anion Gap 19.4 H (5-19) BUN 26 H (6-20) mg/dL Creatinine 1.2 (0.7-1.2) mg/dL GFR Calculation 64.6 L (90-130) mL/min Glucose 147 H (65-115) mg/dL Calculated Osmolal ity 281 L (285-295) mOsm/k g Calcium 10.0 (8.5-10.5) mg/dL Total Bilirubin 1.1 (0.15-1.2) mg/dL AST 28 (0-40) U/L ALT 30 (0-41) U/L Alkaline Phosphata se 81 (40-130) IU/L Total Protein 7.9 (6.6-8.7) g/dL Albumin 5.0 (3.5-5.2) g/dL Globulin 2.9 (1.3-4.6) g/dL Lipase 27 (13-60) U/L Imaging Data^: CT Abd/Pel: Attestation: I personally reviewed and interpreted this imaging study as follows: Radiologist's impression: [place] [address] CT Scan Report Signed Patient: Josue Cheng Unit #: [id number] : 1970 Age/Sex: 49 / M ADM Date: 05/05/20 Loc: ER Room/Bed: Attending Dr: Ordering Provider/Ordering MD: Mercedes Gaines MD Date of Service: 05/05/20 Procedure(s): CT abdomen pelvis w con* [id number] Accession Number(s): [id number] Report Number: [id number] PROCEDURE INFORMATION: Exam: CT Abdomen And Pelvis With Contrast Exam date and time: 05/05/2020 9:39 PM Age: 49 years old Clinical indication: Nausea and vomiting; Prior surgery; Surgery type: Appy, cabg, gb; Additional info: Abd pain TECHNIQUE: Imaging protocol: Computed tomography of the abdomen and pelvis with intravenous contrast. Radiation optimization: All CT scans at this facility use at least one of these dose optimization techniques: automated exposure control; mA and/or kV adjustment per patient size (includes targeted exams where dose is matched to clinical indication); or iterative reconstruction. Contrast material: OMNI 300; Contrast volume: 95 ml; Contrast route: INTRAVENOUS (IV); COMPARISON: CT abdomen pelvis w con* [id number] 07/01/2019 8:15 PM RADIATION DOSE METRICS: Total DLP (mGy-cm): 928.19 FINDINGS: Lungs: The lung bases are clear. Liver: The liver is mildly fatty. Gallbladder and bile ducts: The gallbladder is surgically absent. Pancreas: Normal. No ductal dilation. Spleen: Normal. No splenomegaly. Adrenals: Normal. No mass. Kidneys and ureters: Bilateral scattered simple renal cortical cysts up to 2.4 cm on the right. No significant change and follow-up is not recommended. Stomach and bowel: Scattered noninflamed distal colonic diverticula. The stomach is unremarkable. The duodenum and small bowel are normal. Surgical suture on the cecal tip is consistent with appendectomy. Appendix: No evidence of appendicitis. Intraperitoneal space: Unremarkable. No free air. No significant fluid collection. Vasculature: Scattered calcified plaques in the aorta and iliac arteries. Lymph nodes: Unremarkable. No enlarged lymph nodes. Urinary bladder: The urinary bladder wall is thickened similar to last year. This suggests chronic inflammation. Reproductive: Unremarkable as visualized. Bones/joints: Unremarkable. No acute fracture. Soft tissues: Unremarkable. CT/CT abdomen pelvis w con* [id number] IMPRESSION: 1. No acute abdominopelvic findings. 2. Chronic and incidental findings as described Discharge Plan Discharge Patient Disposition: Home Clinical Impression: Nausea and vomiting Qualifiers: Vomiting type: unspecified Vomiting Intractability: non-intractable Qualified Code(s): R11.2 - Nausea with vomiting, unspecified Condition: Stable Prescriptions: New ondansetron 4 mg tablet,disintegrating 4 mg PO Q6H PRN (Reason: nausea and vomiting) Qty: 14 RF: 0 No Action ezetimibe [Zetia] 10 mg tablet 10 mg PO QDAY RF: 0 metoprolol succinate 25 mg tablet extended release 24 hr 12.5 mg PO BID RF: 0 buspirone 30 mg tablet 30 mg PO BID RF: 0 fenofibrate nanocrystallized 48 mg tablet 48 mg PO QDAY RF: 0 famotidine [Pepcid] 20 mg tablet 20 mg PO BID RF: 0 isosorbide mononitrate 30 mg tablet extended release 24 hr 30 mg PO QAM RF: 0 atorvastatin 80 mg tablet 80 mg PO QDAY RF: 0 quetiapine 50 mg tablet 50 mg PO QDAY RF: 0 aspirin [Adult Aspirin Regimen] 81 mg tablet,delayed release (DR/EC) 81 mg PO QDAY RF: 0 zonisamide 100 mg capsule 400 mg PO QDAY RF: 0 tamsulosin 0.4 mg capsule 0.4 mg PO QDAY RF: 0 nitroglycerin [Nitrostat] 0.4 mg tablet, sublingual 0.4 mg SUBLINGUAL Q5M PRN (Reason: Chest Pain) RF: 0 esomeprazole magnesium [Nexium] 40 mg capsule,delayed release(DR/EC) 40 mg PO QDAY RF: 0 omega-3 fatty acids 1,000 mg capsule 1,000 mg PO QDAY RF: 0 albuterol sulfate 2.5 mg /3 mL (0.083 %) solution for nebulization 2.5 mg INHALATION Q4H PRN (Reason: Shortness Of Breath) RF: 0 albuterol sulfate [ProAir HFA] 90 mcg/actuation HFA aerosol inhaler 2 puff INHALATION Q6H PRN (Reason: Shortness Of Breath) RF: 0 celecoxib [Celebrex] 200 mg capsule 200 mg PO BID RF: 0 budesonide [Pulmicort] 0.5 mg/2 mL suspension for nebulization 0.25 mg INHALATION BID RF: 0 ipratropium-albuterol 0.5 mg-3 mg(2.5 mg base)/3 mL solution for nebulization 3 ml INHALATION QID PRN (Reason: Shortness Of Breath) RF: 0 furosemide [Lasix] 20 mg tablet 10 mg PO QAM RF: 0 potassium chloride [Klor-Con 10] 10 mEq tablet extended release 10 meq PO QDAY RF: 0 clonazepam 1 mg tablet 1 mg PO QID RF: 0 Perforomist 20 mcg/2 mL solution for nebulization 2 ml INHALATION Q12H 30 Days Qty: 120 RF: 3 revefenacin 175 mcg/3 mL solution for nebulization 175 mcg INHALATION DAILY 30 Days Qty: 90 RF: 3 nicotine 21 mg/24 hr patch 24 hour 1 patch TRANSDERMA Q24H 90 Days Qty: 28 RF: 3 clopidogrel 75 mg tablet 75 mg PO QDAY Qty: 90 RF: 3 Discharge Orders: Discharge Order (Routine); Ordered 05/05/20 Ordered By: Mercedes Gaines Referrals: Amanda Simon FNP [Primary Care Provider] - 1-3 days Discharge Diet: Advance as tolerated Discharge Activity: Resume usual activity Patient Instructions: Acute Nausea and Vomiting (ED) Discharge Date/Time: 05/05/20 23:56 Coding Level of Care Code ED Radiation Officer for Chg 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
[2020-05-05] MEDS: ondansetron 2 mg/ML SDV 2 mL 4 MG IVP ×2 (20:50→22:57)
[2020-05-05] MEDS: sodium chloride 0.9% 1,000 ML 999 ML IV ×2 (20:50→22:32)
[2020-05-05] MEDS: HYDROmorphone 1 mg/mL INJ 1 mL 0.5 MG IVP (20:51)
[2020-05-05] MEDS: iohexol 300 mg/mL 100 mL Btl IV (22:13)
[2020-05-05] MEDS: HYDROmorphone 1 mg/mL INJ 1 mL IVP (22:57)
== END 2020-05-05 23:56 | disposition home or self-care (01) ==
PROVIDERS: Emergency Provider Emergency Medicine; PCP Nurse Practitioner Family
DX: R11.2 Nausea with vomiting, unspecified (principal); Z79.82 Long term (current) use of aspirin; I25.10 Atherosclerotic heart disease of native coronary artery without angina pectoris; I10 Essential (primary) hypertension; E78.2 Mixed hyperlipidemia; Z87.891 Personal history of nicotine dependence
CPT/HCPCS: 12345; 36415; 74177; 80053; 83690; 85025; 96361; 96374; 96375; 96376; 99283; J1170; J2405; J7030; Q9967

== ENCOUNTER → 2020-05-27 08:17 | Outpatient (BNVA) | payer MEDICAID, SELFPAY | PROVIDERS: PCP Nurse Practitioner Family; Visit Provider Urology | DX: N32.89 Other specified disorders of bladder (principal); N39.9 Disorder of urinary system, unspecified; N35.919 Unspecified urethral stricture, male, unspecified site | CPT/HCPCS: 81003 ==

== ENCOUNTER 2020-10-01 06:32 | Day surgery (SDC) | payer MEDICAID, SELFPAY ==
[2020-09-29 14:53] VITALS: BMI 31.1
--- NOTE | 2020-10-01 07:05 | ANES.PREANE2 ---
Pre-Anesthetic Assessment Pre-Anesthetic Assessment: Height/Weight: Height 1.7 m Weight 90.265 kg Preop Diagnosis: Osteoarthritis right knee Proposed Procedure: Operation Date: 10/01/20 08:00 Proposed Procedures p EGD/COLON R11.10 K52.9 [id number](Not Applicable) - Chip Wolf MD s Colonoscopy(Not Applicable) - Chip Wolf MD Familial anesthetic complications: None Was Beta Enriqueta taken within 24 hours: Yes Last intake: NPO > 8hrs Social: Social History: No alcohol and No tobacco Exam: Pre-Anes Outpt Exam: alert, oriented x 3, clear to auscultation bilaterally and regular rate & rhythm Airway: Cervical ROM: WNL MP: 4 Dentition: Other (missing) Pulmonary: Pulmonary: COPD CV/HEM: CV/HEM: CAD (3 stents ( all placed greater than 1 year ago - holding plavix)) and HTN Metabolic: Metabolic: Hyperlipidemia Musc/skel: Musc/skel: Lower Back Pain Neuropsych: Neuropsych: Seizure (last one 2013 (? unknown etiology - now on zonisamide, last took yesterday)) Anesthetic Plan: ASA status: 3 Anesthesia: MAC Risk of > 500 ml blood loss (7ml/kg in children): No PFSH Anesthesia PFSH: Medical History (Updated 05/27/20 @ 10:13 by Lito San MD) Anxiety and depression Atherosclerotic heart disease of [place] coronary artery without angina pectoris Bladder wall thickening Cervical spondylosis Chronic migraine Chronic shortness of breath Essential (primary) hypertension Heart attack Hx of coronary angiogram Mixed hyperlipidemia Osteoarthritis Radiculopathy, lumbar region Seizure disorder SOB (shortness of breath) Torsion of appendix testis Urethral stricture Surgical History H/O chest tube placement H/O left knee surgery H/O neck surgery H/O removal of testicle H/O right knee surgery History of appendectomy History of cholecystectomy Stented coronary artery Family History Brother Parkinson disease Cancer Family/Other Cancer Other CAD (coronary artery disease) Social History Smoking and tobacco status: former smoker Quit status (tobacco): has quit using tobacco Year quit tobacco: 2019 - 1PPD x 35 Years Smoking risk assessment/counseling performed?: Yes Alcohol intake: former Year of sobriety/quit date alcohol: 2009 Lives independently: Yes Household members: significant other Current occupational status: disabled History of recent travel: No Current gender identity: Male Data Anesthesia Cardiac Studies: No Data to Display
[2020-10-01 07:27] VITALS: BP 92/59; PULSE 59; RESP 18; TEMP 36.9; O2SAT 98
[2020-10-01] MEDS: sodium chloride 0.9% 1,000 ML 30 ML IV (07:30)
[2020-10-01 08:49] VITALS: BP 112/64; PULSE 61; RESP 16; TEMP 36.4; O2SAT 95
--- NOTE | 2020-10-01 08:49 | W.PM.OPSUD ---
Surgery/Procedure H&P Update DATE OF PROCEDURE: October 01, 2020 DATE H&P PERFORMED: 09/20/20 PREOP DIAGNOSIS: Vomiting, GERD, chronic diarrhea PLANNED PROCEDURE: Operation Date: 10/01/20 08:00 Proposed Procedures p EGD/COLON R11.10 K52.9 [id number](Not Applicable) - Chip Wolf MD s Colonoscopy(Not Applicable) - Chip Wolf MD Related Problem List Diagnoses (1) Chronic diarrhea: (2) Vomiting: (3) Heartburn:
--- NOTE | 2020-10-01 14:20 | ANE.PACU2 ---
Inpatient post-anesthesia follow up: Airway intact: Yes Vital signs: Temperature 97.5 F Pulse Rate 61 Respiratory Rate 16 Blood Pressure 112/64 Pulse Oximetry 95 Oxygen Delivery Me thod Oxygen Flow Rate Fraction of Inspir ed Oxygen Hydration adequate: Yes Pain level: 2 Mental status: Baseline
== END 2020-10-01 09:20 | disposition home or self-care (01) ==
PROVIDERS: PCP Nurse Practitioner Family; Visit Provider Family Medicine
PROC: 0DJ08ZZ Inspection of Upper Intestinal Tract, Via Natural or Artificial Opening Endoscopic (ICD-10-PCS; CPT 43235; principal; 2020-10-01 08:00)
PROC: 0DJD8ZZ Inspection of Lower Intestinal Tract, Via Natural or Artificial Opening Endoscopic (ICD-10-PCS; CPT 45378; 2020-10-01 08:00)
DX: K52.9 Noninfective gastroenteritis and colitis, unspecified (principal); R11.10 Vomiting, unspecified; R12 Heartburn; K21.00 Gastro-esophageal reflux disease with esophagitis, without bleeding; K29.80 Duodenitis without bleeding; Z95.5 Presence of coronary angioplasty implant and graft; I25.2 Old myocardial infarction; F17.210 Nicotine dependence, cigarettes, uncomplicated; Z79.82 Long term (current) use of aspirin; I25.10 Atherosclerotic heart disease of native coronary artery without angina pectoris; N40.0 Benign prostatic hyperplasia without lower urinary tract symptoms; I50.20 Unspecified systolic (congestive) heart failure; I11.0 Hypertensive heart disease with heart failure; J44.9 Chronic obstructive pulmonary disease, unspecified; E78.5 Hyperlipidemia, unspecified; M19.90 Unspecified osteoarthritis, unspecified site
CPT/HCPCS: 12345; 43239; 45380; 88305; 96360; J2704; J3490; J7030

== ENCOUNTER 2020-10-14 09:23 | Emergency (ER) | payer MEDICAID, SELFPAY ==
[2020-10-14 09:25] VITALS: BP 151/85; PULSE 62; RESP 16; TEMP 36.5; O2SAT 96; BMI 32.1
--- NOTE | 2020-10-14 09:43 | W.ED.NAVMDI ---
HPI - Nausea/Vomiting/Diarrhea General: Chief complaint: Nausea/Vomiting/Diarrhea Stated complaint: N/V, dehydration for 4-5 days Time Seen by Provider: 10/14/20 09:29 History of Present Illness: HPI Narrative: Patient comes in complain about nausea vomiting diarrhea since Sunday. Patient has had this problem ongoing for the last few months times. Patient is a daily marijuana user. Patient denies fever and chills. Recently had a GI scope done 2 weeks ago results negative. MD elicited complaint: nausea, vomiting and diarrhea Pertinent past history: cyclical vomiting Onset (ago): week(s) Associated nausea: Yes Location of pain: Diffuse Pain consistency: intermittent Severity: moderate Quality: cramping Exacerbating factors: none Relieving factors: none Associated symtoms: Reports no associated symptoms and nausea; Denies anxiety, change in vision, chest pain or headache(s) Review of Systems Const: Denies: fever(s), chills or body aches Eyes: Denies: change in vision or blurry vision ENMT: Denies: throat pain or nasal congestion Card: Denies: chest pain or dyspnea on exertion Resp: Denies: dyspnea, productive cough or non-productive cough GI: Reports: abdominal pain, nausea, vomiting, diarrhea and other (Smokes marijuana daily) : Denies: difficulty urinating Musc: Denies: extremity pain Skin/Breast: Denies: rash Neuro: Denies: headache(s) Psych: Denies: anxiety or depression Trevon/Lymph: Denies: easy bruising PFSH ED PFSH: Medical History (Updated 10/14/20 @ 11:50 by AWA Liao) Anxiety and depression Atherosclerotic heart disease of [place] coronary artery without angina pectoris Bladder wall thickening Cervical spondylosis Chronic migraine Chronic shortness of breath Essential (primary) hypertension Heart attack Hx of coronary angiogram Mixed hyperlipidemia Osteoarthritis Radiculopathy, lumbar region Seizure disorder SOB (shortness of breath) Torsion of appendix testis Urethral stricture Surgical History H/O chest tube placement H/O left knee surgery H/O neck surgery H/O removal of testicle H/O right knee surgery History of appendectomy History of cholecystectomy Stented coronary artery Family History Brother Parkinson disease Cancer Family/Other Cancer Other CAD (coronary artery disease) Social History Smoking and tobacco status: former smoker Quit status (tobacco): has quit using tobacco Year quit tobacco: 2020 - 1PPD x 35 Years Smoking risk assessment/counseling performed?: Yes Alcohol intake: former Year of sobriety/quit date alcohol: 2009 Lives independently: Yes Household members: significant other Current occupational status: disabled History of recent travel: No Current gender identity: Male Physical Exam Const: COMMON NORMALS: no acute distress, average body habitus and patient oriented x3 HENMT: COMMON NORMALS: normocephalic HEAD & SCALP: normal to inspection and normocephalic FACE & SINUS: normal facial exam Eye: COMMON NORMALS: conjunctivae normal GENERAL EYE: appearance normal, both eyes and all related structures CONJUNCTIVA: Yes conjunctivae normal Neck/C-Spine: COMMON NORMALS: no JVD Chest: COMMONS NORMALS: normal inspection of the chest Resp: COMMON NORMALS: normal respiratory effort and clear to auscultation bilaterally AUSCULTATION: clear to auscultation bilaterally Cardio: COMMON NORMALS: no JVD, regular rate and regular rhythm RATE: regular rate RHYTHM: regular rhythm GI: COMMON NORMALS: Normal to inspection, nondistended, normoactive bowel sounds present PALPATION: Yes Tenderness to palpation present (GI) (Mild generalized) Extremity: COMMON NORMALS: normal to inspection and full ROM Neuro: COMMON NORMALS: patient oriented x3 Course Vital Signs: Vital signs: Vital Signs Temperature 97.7 F 10/14/20 09:25 Pulse Rate 60 10/14/20 12:02 Respiratory Rate 18 10/14/20 12:02 Blood Pressure 149/86 10/14/20 12:02 Pulse Oximetry 97 10/14/20 12:02 MDM - Nausea/Vomiting/Diarrhea MDM Narrative: Medical decision making narrative: Tolerated fluids well. UA shows mild hematuria. Blood work showed mild hyponatremia lipase was normal. Discussed marijuana use with patient and that stopping marijuana use will probably benefit him in the long run. Is to drink some Gatorade type electrolyte solutions when you get home take medicine as directed follow-up family medical provider. Differential Diagnosis: N/V/D differential diagnosis: Likely food poisoning, gastroenteritis and drug-induced nausea and vomiting Lab Data: Labs: Lab Results 10/14/20 10/14/20 10/14/20 Range/Units 10:45 10:45 11:11 WBC 13.6 H (4.0-10.0) 10^3/ uL RBC 4.88 (4.1-5.3) 10^6/u L Hgb 16.1 (11.7-16.6) g/dL Hct 46.4 (42.0-52.0) % MCV 95.1 H (80-94) fL MCH 33.0 (28.0-34.0) pg MCHC 34.7 (30.0-36.0) g/dL RDW 11.9 L (12.1-15.1) % Plt Count 218 (130-400) 10^3/c mm MPV 9.2 (7.4-10.4) fL Neut % (Auto) 75.8 % Lymph % (Auto) 16.6 % [place] % (Auto) 6.5 % Eos % (Auto) 0.4 % Baso % (Auto) 0.4 % Neut # (Auto) 10.30 H (1.8-7.7) 10^3/u L Lymph # (Auto) 2.3 (0.8-4.8) 10^3/u L [place] # (Auto) 0.9 (0.2-0.9) 10^3/u L Eos # (Auto) 0.1 (0.0-0.8) 10^3/u L Baso # (Auto) 0.1 (0.0-0.1) 10^3/u L Nucleated RBC % (a uto) 0 % Nucleated RBCs # 0.0 /100WBC Sodium 131 L (136-145) mmol/L Potassium 3.5 (3.5-5.1) mmol/L Chloride 97 L (98-107) mmol/L Carbon Dioxide 21 L (22-29) mmol/L Anion Gap 16.5 (5-19) BUN 23 H (6-20) mg/dL Creatinine 1.0 (0.7-1.2) mg/dL GFR Calculation 79.8 L (90-130) mL/min Glucose 115 (65-115) mg/dL Calculated Osmolal ity 277 L (285-295) mOsm/k g Calcium 9.3 (8.5-10.5) mg/dL Total Bilirubin 1.2 (0.15-1.2) mg/dL AST 26 (0-40) U/L ALT 20 (0-41) U/L Alkaline Phosphata se 81 (40-130) IU/L Total Protein 7.9 (6.6-8.7) g/dL Albumin 4.8 (3.5-5.2) g/dL Globulin 3.1 (1.3-4.6) g/dL Lipase 24 (13-60) U/L Urine Color Yellow (Yellow) Urine Appearance Clear (CLEAR) Urine pH 5 (5-7) Ur Specific Gravit y 1.025 (1.005-1.030) Urine Protein Trace (Negative) Urine Glucose (UA) Norm (Normal) Urine Ketones Negative (Negative) Urine Blood 2+ H (Negative) Urine Nitrate Negative (Negative) Urine Bilirubin 1+ H (Negative) Urine Urobilinogen 1 H (Negative) mg/dL Ur Leukocyte Jennifer ase Trace H (Negative) Urine RBC 0-4 H (0-2) /hpf Urine WBC 0-4 H (0-5) /hpf Ur Squamous Epith Cells 0-4 H (0-5) /hpf Amorphous Sediment Not Reportable Urine Bacteria Trace (NONE) /hpf Discharge Plan Discharge Patient Disposition: Home Clinical Impression: Cyclic vomiting syndrome, Cannabis abuse Hematuria Qualifiers: Hematuria type: benign essential microscopic Qualified Code(s): R31.1 - Benign essential microscopic hematuria Condition: Stable Prescriptions: New Zofran 4 mg tablet 4 mg PO Q8H 3 Days Qty: 9 RF: 0 No Action metoprolol succinate 25 mg tablet extended release 24 hr 12.5 mg PO BID RF: 0 buspirone 30 mg tablet 30 mg PO BID RF: 0 fenofibrate nanocrystallized 48 mg tablet 48 mg PO QDAY RF: 0 famotidine [Pepcid] 20 mg tablet 20 mg PO BID RF: 0 isosorbide mononitrate 30 mg tablet extended release 24 hr 30 mg PO QAM RF: 0 atorvastatin 80 mg tablet 80 mg PO QDAY RF: 0 quetiapine 50 mg tablet 50 mg PO QDAY RF: 0 aspirin [Adult Aspirin Regimen] 81 mg tablet,delayed release (DR/EC) 81 mg PO QDAY RF: 0 zonisamide 100 mg capsule 400 mg PO QDAY RF: 0 tamsulosin 0.4 mg capsule 0.4 mg PO QDAY RF: 0 nitroglycerin [Nitrostat] 0.4 mg tablet, sublingual 0.4 mg SUBLINGUAL Q5M PRN (Reason: Chest Pain) RF: 0 omega-3 fatty acids 1,000 mg capsule 1,000 mg PO QDAY RF: 0 albuterol sulfate 2.5 mg /3 mL (0.083 %) solution for nebulization 2.5 mg INHALATION Q4H PRN (Reason: Shortness Of Breath) RF: 0 albuterol sulfate [ProAir HFA] 90 mcg/actuation HFA aerosol inhaler 2 puff INHALATION Q6H PRN (Reason: Shortness Of Breath) RF: 0 celecoxib [Celebrex] 200 mg capsule 200 mg PO BID RF: 0 budesonide [Pulmicort] 0.5 mg/2 mL suspension for nebulization 0.25 mg INHALATION BID RF: 0 ipratropium-albuterol 0.5 mg-3 mg(2.5 mg base)/3 mL solution for nebulization 3 ml INHALATION QID PRN (Reason: Shortness Of Breath) RF: 0 potassium chloride [Klor-Con 10] 10 mEq tablet extended release 10 meq PO QDAY RF: 0 clonazepam 1 mg tablet 1 mg PO QID RF: 0 citalopram 20 mg tablet 20 mg PO DAILY RF: 0 clopidogrel 75 mg tablet 75 mg PO QDAY Qty: 90 RF: 3 ondansetron 4 mg tablet,disintegrating 4 mg PO Q6H PRN (Reason: nausea and vomiting) Qty: 14 RF: 0 Discharge Orders: Discharge ED (Routine); Ordered 10/14/20 Ordered By: Chad Butcher Referrals: Amanda Simon FNP [Primary Care Provider] - Discharge Diet: Usual diet Discharge Activity: Increase activity as tolerated Patient Instructions: Cannabis Abuse (ED), Vomiting - Adult Activity Restrictions/Additional Instructions: Stop using marijuana. Drink plenty of fluids. Follow-up your family medical provider if no significant provement. Coding Level of Care Code ED Peach Grower for Chg 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
[2020-10-14] MEDS: SUMAtriptan 6 mg/0.5 mL SDV SUBCUT (09:50)
[2020-10-14] MEDS: ketorolac 30 mg/mL INJ IVP (09:50)
[2020-10-14] MEDS: promethazine 25 mg/mL SDV 1 mL IM (09:51)
[2020-10-14 10:57] LABS: Basophils # 0.1 10^3/uL (0.0-0.1); Basophils % 0.4 %; Eosinophils # 0.1 10^3/uL (0.0-0.8); Eosinophils % 0.4 %; Hematocrit 46.4 % (42.0-52.0); Hemoglobin 16.1 g/dL (11.7-16.6); Lymphocytes # 2.3 10^3/uL (0.8-4.8); Lymphocytes % 16.6 %; Mean Corpuscular HGB Conc 34.7 g/dL (30.0-36.0); Mean Corpuscular Volume 95.1 fL (80-94); Mean Platelet Volume 9.2 fL (7.4-10.4); Monocytes # 0.9 10^3/uL (0.2-0.9); Monocytes % 6.5 %; Neutrophils % 75.8 %; Nucleated Red Blood Cells % 0 %; Platelet Count 218 10^3/cmm (130-400); Red Blood Count 4.88 10^6/uL (4.1-5.3); Red Cell Distribution Width 11.9 % (12.1-15.1); White Blood Count 13.6 10^3/uL (4.0-10.0)
[2020-10-14] MEDS: sodium chloride 0.9% 1,000 ML 999 ML IV (10:58)
[2020-10-14 11:17] LABS: Alanine Aminotransferase 20 U/L (0-41); Albumin Level 4.8 g/dL (3.5-5.2); Alkaline Phosphatase 81 IU/L (40-130); Anion Gap 16.5 (5-19); Aspartate Amino Transferase 26 U/L (0-40); Blood Urea Nitrogen 23 mg/dL (6-20); Calcium 9.3 mg/dL (8.5-10.5); Carbon Dioxide 21 mmol/L (22-29); Chloride 97 mmol/L (98-107); Globulin 3.1 g/dL (1.3-4.6); Glomerular Filtration Rate 79.8 mL/min (90-130); Glucose 115 mg/dL (65-115); Lipase 24 U/L (13-60); Osmolality Calculated 277 mOsm/kg (285-295); Potassium 3.5 mmol/L (3.5-5.1); Sodium 131 mmol/L (136-145); Total Bilirubin 1.2 mg/dL (0.15-1.2); Total Protein 7.9 g/dL (6.6-8.7)
[2020-10-14 11:32] LABS: Add Urine Microscopic? YES; Bacteria Urine TRACE /hpf; Bilirubin Urine 1+ (Negative); Blood Urine 2+ (Negative); Glucose Urine UA Norm (Normal); Ketones Urine Negative (Negative); Leukocyte Esterase Urine Trace (Negative); Nitrate Urine Negative (Negative); Protein Urine Trace (Negative); RBC Urine 0-4 /hpf (0-2); Specific Gravity, Urine 1.025 (1.005-1.030); Squamous Epithelial Cell Urine 0-4 /hpf (0-5); Urine Appearance Clear (CLEAR); Urine Color Yellow (Yellow); Urobilinogen Urine 1 mg/dL (Negative); WBC Urine 0-4 /hpf (0-5); pH Urine 5 (5-7)
[2020-10-14 12:02] VITALS: BP 149/86; PULSE 60; RESP 18; O2SAT 97
== END 2020-10-14 12:05 | disposition home or self-care (01) ==
PROVIDERS: Emergency Provider Nurse Practitioner Family; PCP Nurse Practitioner Family
DX: R11.15 Cyclical vomiting syndrome unrelated to migraine (principal); F12.10 Cannabis abuse, uncomplicated; R31.1 Benign essential microscopic hematuria; Z79.82 Long term (current) use of aspirin; Z79.02 Long term (current) use of antithrombotics/antiplatelets; I25.10 Atherosclerotic heart disease of native coronary artery without angina pectoris; I10 Essential (primary) hypertension; E78.2 Mixed hyperlipidemia; Z87.891 Personal history of nicotine dependence
CPT/HCPCS: 80053; 81001; 83690; 85025; 96361; 96372; 96374; 99283; J1885; J2550; J3030; J7030

== ENCOUNTER 2020-10-17 17:16 | Emergency (ER) | payer MEDICAID, SELFPAY ==
[2020-10-17 17:19] VITALS: BP 132/90; PULSE 90; RESP 18; TEMP 36.4; O2SAT 95; BMI 32.1
--- NOTE | 2020-10-17 18:40 | ED_ITS ---
HPI - Nausea/Vomiting/Diarrhea General: Chief complaint: Nausea/Vomiting/Diarrhea Stated complaint: N/V Time Seen by Provider: 10/17/20 18:29 Source: patient Mode of arrival: ambulatory Limitations: no limitations History of Present Illness: HPI Narrative: 49-year-old male states he has history of cyclical vomiting syndrome. He states over the last 2 days has had increased vomiting along with abdominal cramping. He states that he takes Phenergan at home but he is been throwing it up. He states he just is not been able to keep anything down. Denies any worsening improving factors. Denies any fevers. Associated nausea: Yes Associated symtoms: Reports nausea; Denies chest pain, dysuria or headache(s) Review of Systems Const: Denies: fever(s), chills, body aches or change in appetite Eyes: Denies: blurry vision or eye discomfort ENMT: Denies: throat pain or dental pain Card: Denies: chest pain Resp: Denies: dyspnea GI: Reports: nausea and vomiting : Denies: dysuria Musc: Denies: neck pain or back pain Skin/Breast: Denies: rash Neuro: Denies: headache(s) Psych: Denies: depression Trevon/Lymph: Denies: easy bruising All/Imm: Denies: urticaria PFSH ED PFSH: Medical History Anxiety and depression Atherosclerotic heart disease of [place] coronary artery without angina pectoris Bladder wall thickening Cervical spondylosis Chronic migraine Chronic shortness of breath Essential (primary) hypertension Heart attack Hx of coronary angiogram Mixed hyperlipidemia Osteoarthritis Radiculopathy, lumbar region Seizure disorder SOB (shortness of breath) Torsion of appendix testis Urethral stricture Surgical History H/O chest tube placement H/O left knee surgery H/O neck surgery H/O removal of testicle H/O right knee surgery History of appendectomy History of cholecystectomy Stented coronary artery Family History Brother Parkinson disease Cancer Family/Other Cancer Other CAD (coronary artery disease) Social History Smoking and tobacco status: former smoker Quit status (tobacco): has quit using tobacco Year quit tobacco: 2020 - 1PPD x 35 Years Smoking risk assessment/counseling performed?: Yes Alcohol intake: former Year of sobriety/quit date alcohol: 2009 Lives independently: Yes Household members: significant other Current occupational status: disabled History of recent travel: No Current gender identity: Male Physical Exam Const: COMMON NORMALS: no acute distress, patient oriented x3 and healthy appearing HENMT: COMMON NORMALS: normocephalic and atraumatic HEAD & SCALP: normocephalic and atraumatic Eye: COMMON NORMALS: Equal, round and reactive pupils present and EOMs intact bilaterally PUPIL: Yes Equal, round and reactive pupils present Neck/C-Spine: COMMON NORMALS: full ROM and supple Chest: COMMONS NORMALS: normal inspection of the chest and normal palpation of entire chest wall Resp: COMMON NORMALS: normal respiratory effort, No retractions, No use of accessory muscles and clear to auscultation bilaterally AUSCULTATION: clear to auscultation bilaterally Cardio: COMMON NORMALS: regular rate, regular rhythm and No murmurs present (Cardio) RATE: regular rate RHYTHM: regular rhythm GI: COMMON NORMALS: Normal to inspection, nondistended, normoactive bowel sounds present, Soft to palpation, non-tender and no masses PALPATION: Yes Soft to palpation Extremity: COMMON NORMALS: normal to inspection and full ROM Neuro: COMMON NORMALS: patient oriented x3, moves all extremities and no focal motor deficits Psych: COMMON NORMALS: mental status grossly normal, Normal thought process present and cooperative THOUGHT PROCESS: Normal thought process present Skin: COMMON NORMALS: no rashes or lesions noted and no wounds GENERAL SKIN EXAM: no rashes or lesions noted Course Vital Signs: Vital signs: Vital Signs Temperature 97.5 F L 10/17/20 17:19 Pulse Rate 74 10/17/20 21:17 Respiratory Rate 14 10/17/20 21:17 Blood Pressure 170/97 10/17/20 21:17 Pulse Oximetry 100 10/17/20 21:17 MDM - Nausea/Vomiting/Diarrhea MDM Narrative: Medical decision making narrative: Patient presents here with sickle vomiting syndrome with hypokalemia. Patient is able to tolerate p.o. here and feels improved after Reglan. Will prescribe him Reglan for home as well. Abdominal exam is benign he has no signs of acute surgical abdomen or small bowel obstruction. He is to return if worsening and follow-up PCP in 3 to 5 days. Lab Data: Labs: Lab Results 10/17/20 10/17/20 Range/Units 18:50 18:50 WBC 14.3 H (4.0-10.0) 10^3/ uL RBC 4.91 (4.1-5.3) 10^6/u L Hgb 16.0 (11.7-16.6) g/dL Hct 45.1 (42.0-52.0) % MCV 91.9 (80-94) fL MCH 32.6 (28.0-34.0) pg MCHC 35.5 (30.0-36.0) g/dL RDW 11.5 L (12.1-15.1) % Plt Count 300 (130-400) 10^3/c mm MPV 9.2 (7.4-10.4) fL Neut % (Auto) 61.5 % Lymph % (Auto) 28.6 % [place] % (Auto) 8.1 % Eos % (Auto) 0.7 % Baso % (Auto) 0.6 % Neut # (Auto) 8.78 H (1.8-7.7) 10^3/u L Lymph # (Auto) 4.1 (0.8-4.8) 10^3/u L [place] # (Auto) 1.2 H (0.2-0.9) 10^3/u L Eos # (Auto) 0.1 (0.0-0.8) 10^3/u L Baso # (Auto) 0.1 (0.0-0.1) 10^3/u L Nucleated RBC % (a uto) 0 % Nucleated RBCs # 0.0 /100WBC Sodium 129 L (136-145) mmol/L Potassium 2.9 L (3.5-5.1) mmol/L Chloride 92 L (98-107) mmol/L Carbon Dioxide 19 L (22-29) mmol/L Anion Gap 20.9 H (5-19) BUN 22 H (6-20) mg/dL Creatinine 0.9 (0.7-1.2) mg/dL GFR Calculation 90.1 (90-130) mL/min Glucose 108 (65-115) mg/dL Calculated Osmolal ity 272 L (285-295) mOsm/k g Calcium 9.5 (8.5-10.5) mg/dL Total Bilirubin 1.7 H (0.15-1.2) mg/dL AST 21 (0-40) U/L ALT 20 (0-41) U/L Alkaline Phosphata se 83 (40-130) IU/L Total Protein 7.8 (6.6-8.7) g/dL Albumin 4.7 (3.5-5.2) g/dL Globulin 3.1 (1.3-4.6) g/dL Lipase 62 H (13-60) U/L Discharge Plan Discharge Patient Disposition: Home Clinical Impression: Cyclic vomiting syndrome Condition: Stable Prescriptions: New Reglan 10 mg tablet 10 mg PO Q6H PRN (Reason: nausea and vomiting) Qty: 20 RF: 0 potassium chloride 20 mEq packet 40 meq PO BID Qty: 10 RF: 0 No Action metoprolol succinate 25 mg tablet extended release 24 hr 12.5 mg PO BID RF: 0 buspirone 30 mg tablet 30 mg PO BID RF: 0 fenofibrate nanocrystallized 48 mg tablet 48 mg PO QDAY RF: 0 famotidine [Pepcid] 20 mg tablet 20 mg PO BID RF: 0 isosorbide mononitrate 30 mg tablet extended release 24 hr 30 mg PO QAM RF: 0 atorvastatin 80 mg tablet 80 mg PO QDAY RF: 0 quetiapine 50 mg tablet 50 mg PO QDAY RF: 0 aspirin [Adult Aspirin Regimen] 81 mg tablet,delayed release (DR/EC) 81 mg PO QDAY RF: 0 zonisamide 100 mg capsule 400 mg PO QDAY RF: 0 tamsulosin 0.4 mg capsule 0.4 mg PO QDAY RF: 0 nitroglycerin [Nitrostat] 0.4 mg tablet, sublingual 0.4 mg SUBLINGUAL Q5M PRN (Reason: Chest Pain) RF: 0 omega-3 fatty acids 1,000 mg capsule 1,000 mg PO QDAY RF: 0 albuterol sulfate 2.5 mg /3 mL (0.083 %) solution for nebulization 2.5 mg INHALATION Q4H PRN (Reason: Shortness Of Breath) RF: 0 albuterol sulfate [ProAir HFA] 90 mcg/actuation HFA aerosol inhaler 2 puff INHALATION Q6H PRN (Reason: Shortness Of Breath) RF: 0 celecoxib [Celebrex] 200 mg capsule 200 mg PO BID RF: 0 budesonide [Pulmicort] 0.5 mg/2 mL suspension for nebulization 0.25 mg INHALATION BID RF: 0 ipratropium-albuterol 0.5 mg-3 mg(2.5 mg base)/3 mL solution for nebulization 3 ml INHALATION QID PRN (Reason: Shortness Of Breath) RF: 0 potassium chloride [Klor-Con 10] 10 mEq tablet extended release 10 meq PO QDAY RF: 0 clonazepam 1 mg tablet 1 mg PO QID RF: 0 citalopram 20 mg tablet 20 mg PO DAILY RF: 0 clopidogrel 75 mg tablet 75 mg PO QDAY Qty: 90 RF: 3 ondansetron 4 mg tablet,disintegrating 4 mg PO Q6H PRN (Reason: nausea and vomiting) Qty: 14 RF: 0 Discharge Orders: Discharge ED (Routine); Ordered 10/17/20 Ordered By: Mercedes Gaines Referrals: Amanda Simon FNP [Primary Care Provider] - 1-3 days Discharge Diet: Advance as tolerated Discharge Activity: Resume usual activity Patient Instructions: Acute Nausea and Vomiting (ED) Coding Level of Care Code ED Investigative Reporter for Shayyg 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
[2020-10-17 18:59] LABS: Basophils # 0.1 10^3/uL (0.0-0.1); Basophils % 0.6 %; Eosinophils # 0.1 10^3/uL (0.0-0.8); Eosinophils % 0.7 %; Hematocrit 45.1 % (42.0-52.0); Lymphocytes # 4.1 10^3/uL (0.8-4.8); Lymphocytes % 28.6 %; Mean Corpuscular HGB Conc 35.5 g/dL (30.0-36.0); Mean Corpuscular Hemoglobin 32.6 pg (28.0-34.0); Mean Corpuscular Volume 91.9 fL (80-94); Mean Platelet Volume 9.2 fL (7.4-10.4); Monocytes # 1.2 10^3/uL (0.2-0.9); Monocytes % 8.1 %; Neutrophils # 8.78 10^3/uL (1.8-7.7); Neutrophils % 61.5 %; Nucleated Red Blood Cells % 0 %; Platelet Count 300 10^3/cmm (130-400); Red Blood Count 4.91 10^6/uL (4.1-5.3); Red Cell Distribution Width 11.5 % (12.1-15.1); White Blood Count 14.3 10^3/uL (4.0-10.0)
[2020-10-17] MEDS: diphenhydrAMINE 50 mg/mL SDV 1mL IVP (19:05)
[2020-10-17] MEDS: metoclopramide 5 mg/mL SDV 2 mL 10 MG IVP (19:05)
[2020-10-17] MEDS: sodium chloride 0.9% 1,000 ML 999 ML IV (19:06)
[2020-10-17 19:11] VITALS: BP 106/70; PULSE 73; RESP 14; O2SAT 99
[2020-10-17 20:15] LABS: Alanine Aminotransferase 20 U/L (0-41); Albumin Level 4.7 g/dL (3.5-5.2); Alkaline Phosphatase 83 IU/L (40-130); Anion Gap 20.9 (5-19); Aspartate Amino Transferase 21 U/L (0-40); Blood Urea Nitrogen 22 mg/dL (6-20); Calcium 9.5 mg/dL (8.5-10.5); Carbon Dioxide 19 mmol/L (22-29); Chloride 92 mmol/L (98-107); Globulin 3.1 g/dL (1.3-4.6); Glomerular Filtration Rate 90.1 mL/min (90-130); Glucose 108 mg/dL (65-115); Lipase 62 U/L (13-60); Osmolality Calculated 272 mOsm/kg (285-295); Sodium 129 mmol/L (136-145); Total Bilirubin 1.7 mg/dL (0.15-1.2); Total Protein 7.8 g/dL (6.6-8.7)
[2020-10-17 20:18] LABS: Potassium 2.9 mmol/L (3.5-5.1)
[2020-10-17 20:26] VITALS: BP 128/86; PULSE 69; RESP 14; O2SAT 97
[2020-10-17] MEDS: potassium chloride ER 20 mEq Tablet 40 MEQ PO (20:46)
[2020-10-17] MEDS: LORazepam 2 mg/mL INJ 1 mL 0.5 MG IVP (20:47)
[2020-10-17] MEDS: LORazepam 2 mg/mL INJ 1 mL 1 MG IVP (21:16)
[2020-10-17 21:17] VITALS: BP 170/97; PULSE 74; RESP 14; O2SAT 100
== END 2020-10-17 22:01 | disposition home or self-care (01) ==
PROVIDERS: Emergency Provider Emergency Medicine; PCP Nurse Practitioner Family
DX: R11.15 Cyclical vomiting syndrome unrelated to migraine (principal); Z79.02 Long term (current) use of antithrombotics/antiplatelets; Z79.82 Long term (current) use of aspirin; I25.10 Atherosclerotic heart disease of native coronary artery without angina pectoris; I10 Essential (primary) hypertension; E78.2 Mixed hyperlipidemia; Z87.891 Personal history of nicotine dependence
CPT/HCPCS: 80053; 83690; 85025; 96361; 96374; 96375; 96376; 99284; J1200; J2060; J2765; J7030

== ENCOUNTER 2020-10-19 05:43 | Inpatient (IN) | payer MEDICAID, SELFPAY ==
[2020-10-19] VITALS (12 sets, daily range): BP systolic 96–157; BP diastolic 74–111; PULSE 64–106; RESP 15–20; TEMP 36.3–36.8; O2SAT 96–100; BMI 30.7
--- NOTE | 2020-10-19 05:55 | XR_ITS ---
WS: [id number] Exam: XR chest 1V portable [id number] Date/Time of Exam: 10/19/2020 6:06 AM Reason For Exam: dyspnea/cough Comparison 01/08/2020. The lungs are clear and fully expanded. Normal cardiomediastinal structures. No pleural effusion. Sig ns of anterior cervical fusion. 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 XR/XR chest 1V portable [id number] IMPRESSION: 1. No acute cardiopulmonary finding. No change.
[2020-10-19] MEDS: ondansetron 2 mg/ML SDV 2 mL 4 MG IVP ×2 (06:06→18:36)
[2020-10-19] MEDS: lidocaine 1% 5 ML in potassium chloride premix 100 ML 25 ML IV (06:09)
--- NOTE | 2020-10-19 06:09 | ECG_ITS ---
[facility] Test Date: 2020-10-19 Pat Name: Josue Cheng Department: Room: Gender: Male Coagulation Operator: : 1970 Requested By: Torito Avilez Order Number: [id number] Archana MD: Placido Garza M.D. Measurements Intervals [place] Rate: 91 P: 72 [place]: 136 QRS: 95 QRSD: 88 T: 57 QT: 345 QTc: 425 Interpretive Statements SINUS RHYTHM BORDERLINE RIGHT AXIS DEVIATION [QRS AXIS > 90] ST DEVIATION AND MODERATE T-WAVE ABNORMALITY, CONSIDER ANTEROLATERAL ISCHEMIA [-0.1+ mV T WAVE IN V3-V6] Compared to ECG 01/08/2020 14:19:16 T-wave abnormality now present Possible ischemia now present Electronically Signed On 10-19-2020 20:14:57 CDT by Placido Garza M.D. [id number]
[2020-10-19] MEDS: sodium chloride 0.9% 1,000 ML 999 ML IV (06:11)
[2020-10-19 06:13] LABS: Hematocrit 52.8 % (42.0-52.0); Hemoglobin 19.1 g/dL (11.7-16.6); Mean Corpuscular HGB Conc 36.2 g/dL (30.0-36.0); Mean Corpuscular Hemoglobin 33.2 pg (28.0-34.0); Mean Corpuscular Volume 91.8 fL (80-94); Mean Platelet Volume 9.3 fL (7.4-10.4); Platelet Count 369 10^3/cmm (130-400); Red Blood Count 5.75 10^6/uL (4.1-5.3); Red Cell Distribution Width 11.6 % (12.1-15.1); White Blood Count 24.8 10^3/uL (4.0-10.0)
--- NOTE | 2020-10-19 06:14 | W.ED.GENADLT ---
HPI - General Adult General: Chief complaint: General Medical Stated complaint: muscle cramps Time Seen by Provider: 10/19/20 05:54 History of Present Illness: HPI narrative: 49-year-old male presents emergency room complaining of nausea but with vomiting, but no diarrhea. He does have a lot of muscle cramping. She was here 2 days ago had n/v and was hypokalemia. He was given potassium returned up is not take any potassium since he got home. He has had some mild chest discomfort as well. He has a history of coronary artery disease. He has a history of cyclical vomiting and recurrent pancreatitis. Pt reports he had a EGD and colonoscopy approximately a motnh ago by Dr. Wolf. Onset (ago): day(s) Severity: severe Quality: aching Relieving factors: none Exacerbating factors: eating Associated symptoms: Deny chest pain, confusion, cough, diaphoresis, decreased appetite, dyspnea, fevers/chills, headache(s), malaise, nausea, rash, palpitations, seizures, short of breath, syncope, vomiting or weakness Treatments prior to arrival: none Review of Systems Const: Denies: malaise or diaphoresis Card: Denies: chest pain, palpitations or syncope Resp: Denies: dyspnea GI: Denies: nausea or vomiting Skin/Breast: Denies: rash Neuro: Denies: headache(s) or confusion PFS ED PFSH: Medical History (Updated 10/22/20 @ 00:00 by ) Anxiety and depression Atherosclerotic heart disease of [place] coronary artery without angina pectoris Bladder wall thickening Cervical spondylosis Chronic migraine Chronic pancreatitis Chronic shortness of breath Diverticulosis Essential (primary) hypertension GERD (gastroesophageal reflux disease) Heart attack Hx of coronary angiogram Mixed hyperlipidemia Osteoarthritis Radiculopathy, lumbar region Seizure disorder SOB (shortness of breath) Tobacco dependency Torsion of appendix testis Urethral stricture Surgical History H/O chest tube placement H/O left knee surgery H/O neck surgery H/O removal of testicle H/O right knee surgery History of appendectomy History of cholecystectomy Stented coronary artery Family History Brother Parkinson disease Cancer Family/Other Cancer Other CAD (coronary artery disease) Social History Smoking and tobacco status: former smoker Quit status (tobacco): has quit using tobacco Year quit tobacco: 2020 - 1PPD x 35 Years Smoking risk assessment/counseling performed?: Yes Alcohol intake: former Year of sobriety/quit date alcohol: 2009 Lives independently: Yes Household members: significant other Current occupational status: disabled History of recent travel: No Current gender identity: Male Physical Exam Const: COMMON NORMALS: no acute distress GENERAL APPEARANCE: cooperative and comfortable ORIENTATION/CONSCIOUSNESS: Yes awake, Yes oriented to person, Yes oriented to place and Yes oriented to time HENMT: COMMON NORMALS: normocephalic, atraumatic and hearing grossly normal bilaterally HEAD & SCALP: normocephalic and atraumatic Neck/C-Spine: COMMON NORMALS: no JVD Resp: COMMON NORMALS: normal respiratory effort, No retractions, No use of accessory muscles and clear to auscultation bilaterally AUSCULTATION: clear to auscultation bilaterally Cardio: COMMON NORMALS: no JVD, regular rate, regular rhythm and No murmurs present (Cardio) RATE: regular rate RHYTHM: regular rhythm GI: COMMON NORMALS: Soft to palpation and No hepatosplenomegaly present AUSCULTATION: Yes normoactive bowel sounds PALPATION: Yes Soft to palpation, No Tenderness to palpation present (GI), No Guarding due to palpation present (GI) and Yes No hepatosplenomegaly present Extremity: COMMON NORMALS: normal to inspection, capillary refill normal, no clubbing, cyanosis or edema, no calf tenderness and no pedal edema Neuro: SENSORIUM/ORIENTATION: Yes oriented to person, Yes oriented to place and Yes oriented to time Skin: COMMON NORMALS: no rashes or lesions noted GENERAL SKIN EXAM: no rashes or lesions noted Course Vital Signs: Vital signs: Vital Signs Temperature 98.8 F 10/21/20 12:14 Pulse Rate 87 10/21/20 12:14 Respiratory Rate 19 H 10/21/20 12:14 Blood Pressure 125/75 10/21/20 12:14 Pulse Oximetry 99 10/21/20 08:19 MDM - General Adult MDM Narrative: Medical decision making narrative: Patient is hyponatremic hypokalemic with persistent nausea vomiting a mild cystitis. He does have a pretty significantly elevated anion gap. We will go ahead and admit him for IV fluids antiemetics Lab Data: Labs: Lab Results 10/19/20 10/19/20 10/19/20 Range/Units 06:02 06:02 06:02 WBC 24.8 H (4.0-10.0) 10^3/ uL RBC 5.75 H (4.1-5.3) 10^6/u L Hgb 19.1 H (11.7-16.6) g/dL Hct 52.8 H (42.0-52.0) % MCV 91.8 (80-94) fL MCH 33.2 (28.0-34.0) pg MCHC 36.2 H (30.0-36.0) g/dL RDW 11.6 L (12.1-15.1) % Plt Count 369 (130-400) 10^3/c mm MPV 9.3 (7.4-10.4) fL Lymph % (Auto) Not Reportable Cocke % (Auto) Not Reportable Lymph # (Auto) Not Reportable Cocke # (Auto) Not Reportable Total Counted 100 (0-100) Atypical Lymphs % 6.0 H (0-5) % Absolute Neutrophi ls 16.6 H (1.4-6.5) 10^3/c mm Segmented Neutroph ils 63 % Abs Segm Neuts (Ma n) 15.6 H (1.6-7.1) 10/cmm Band Neutrophils 4.0 % Abs Band Neuts (Ma n) 1.0 (0.0-1.2) 10^3/c mm Absolute Lymphocyt es 6.4 H (1.2-3.4) 10^3/c mm Lymphocytes (Manua l) 20 % Monocytes (Manual) 7.0 % Absolute Monocytes 1.7 H (0.1-0.6) 10^3/c mm Eosinophils (Manua l) 0 % Absolute Eosinophi ls 0.0 (0.0-0.7) 10^3/c mm Basophils (Manual) 0.0 % Absolute Basophils 0.0 (0.0-0.2) 10^3/c mm Platelet Estimate Normal (Normal) Specimen Type Sample Site ABG pH (7.35-7.45) ABG pCO2 (35-45) mmHg ABG pO2 (80.0-100.0) mmH g ABG HCO3 (22-26) mmol/L ABG O2 Saturation ABG Base Excess (-2.0-2.0) mmol/ L Madi Test A-a O2 Gradient (5-10) mmHg Hematocrit (42-52) % Hgb O2 Saturation (95-100) % Carboxyhemoglobin (0.4-20.1) %THgb Methemoglobin (0.4-1.5) % Total Hemoglobin (14-18) g/dL Ionized Calcium (1.1-1.4) mmol/L O2 Delivery Device FiO2 % Dental Equipment Technician ID Sodium 126 L (136-145) mmol/L Potassium 3.2 L (3.5-5.1) mmol/L Chloride 84 L (98-107) mmol/L Carbon Dioxide 16 L (22-29) mmol/L Anion Gap 29.2 H (5-19) BUN 28 H (6-20) mg/dL Creatinine 2.2 H (0.7-1.2) mg/dL GFR Calculation 32.1 L (90-130) mL/min Glucose 161 H (65-115) mg/dL Calculated Osmolal ity 271 L (285-295) mOsm/k g Calcium 11.2 H (8.5-10.5) mg/dL Magnesium 2.1 (1.7-2.3) mg/dL Total Bilirubin 2.4 H (0.15-1.2) mg/dL AST 33 (0-40) U/L ALT 24 (0-41) U/L Alkaline Phosphata se 111 (40-130) IU/L Creatine Kinase 256 (39-308) U/L Troponin T Baselin e (0-15) ng/L Troponin T 120 Min [place] (0-15) ng/L Delta Troponin T (0-10) ABS# Total Protein 9.1 H (6.6-8.7) g/dL Albumin 5.8 H (3.5-5.2) g/dL Globulin 3.3 (1.3-4.6) g/dL Lipase 104 H (13-60) U/L TSH (0.27-4.20) uIU/ mL Urine Color (Yellow) Urine Appearance (CLEAR) Urine pH (5-7) Ur Specific Gravit y (1.005-1.030) Urine Protein (Negative) Urine Glucose (UA) (Normal) Urine Ketones (Negative) Urine Blood (Negative) Urine Nitrate (Negative) Urine Bilirubin (Negative) Urine Urobilinogen (Negative) mg/dL Ur Leukocyte Jennifer ase (Negative) Urine RBC (0-2) /hpf Urine WBC (0-5) /hpf Ur Squamous Epith Cells (0-5) /hpf Amorphous Sediment Urine Bacteria (NONE) /hpf Fine Granular Cast s /lpf Serum Ketones Negative (Negative) 10/19/20 10/19/20 10/19/20 Range/Units 06:02 06:02 06:02 WBC (4.0-10.0) 10^3/ uL RBC (4.1-5.3) 10^6/u L Hgb (11.7-16.6) g/dL Hct (42.0-52.0) % MCV (80-94) fL MCH (28.0-34.0) pg MCHC (30.0-36.0) g/dL RDW (12.1-15.1) % Plt Count (130-400) 10^3/c mm MPV (7.4-10.4) fL Lymph % (Auto) Cocke % (Auto) Lymph # (Auto) [place] # (Auto) Total Counted (0-100) Atypical Lymphs % (0-5) % Absolute Neutrophi ls (1.4-6.5) 10^3/c mm Segmented Neutroph ils % Abs Segm Neuts (Ma n) (1.6-7.1) 10/cmm Band Neutrophils % Abs Band Neuts (Ma n) (0.0-1.2) 10^3/c mm Absolute Lymphocyt es (1.2-3.4) 10^3/c mm Lymphocytes (Manua l) % Monocytes (Manual) % Absolute Monocytes (0.1-0.6) 10^3/c mm Eosinophils (Manua l) % Absolute Eosinophi ls (0.0-0.7) 10^3/c mm Basophils (Manual) % Absolute Basophils (0.0-0.2) 10^3/c mm Platelet Estimate (Normal) Specimen Type Sample Site ABG pH (7.35-7.45) ABG pCO2 (35-45) mmHg ABG pO2 (80.0-100.0) mmH g ABG HCO3 (22-26) mmol/L ABG O2 Saturation ABG Base Excess (-2.0-2.0) mmol/ L Madi Test A-a O2 Gradient (5-10) mmHg Hematocrit (42-52) % Hgb O2 Saturation (95-100) % Carboxyhemoglobin (0.4-20.1) %THgb Methemoglobin (0.4-1.5) % Total Hemoglobin (14-18) g/dL Ionized Calcium (1.1-1.4) mmol/L O2 Delivery Device FiO2 % Dental Equipment Technician ID Sodium (136-145) mmol/L Potassium (3.5-5.1) mmol/L Chloride (98-107) mmol/L Carbon Dioxide (22-29) mmol/L Anion Gap (5-19) BUN (6-20) mg/dL Creatinine (0.7-1.2) mg/dL GFR Calculation (90-130) mL/min Glucose (65-115) mg/dL Calculated Osmolal ity (285-295) mOsm/k g Calcium (8.5-10.5) mg/dL Magnesium 2.2 (1.7-2.3) mg/dL Total Bilirubin (0.15-1.2) mg/dL AST (0-40) U/L ALT (0-41) U/L Alkaline Phosphata se (40-130) IU/L Creatine Kinase (39-308) U/L Troponin T Baselin e 27 H (0-15) ng/L Troponin T 120 Min [place] (0-15) ng/L Delta Troponin T (0-10) ABS# Total Protein (6.6-8.7) g/dL Albumin (3.5-5.2) g/dL Globulin (1.3-4.6) g/dL Lipase (13-60) U/L TSH 1.94 (0.27-4.20) uIU/ mL Urine Color (Yellow) Urine Appearance (CLEAR) Urine pH (5-7) Ur Specific Gravit y (1.005-1.030) Urine Protein (Negative) Urine Glucose (UA) (Normal) Urine Ketones (Negative) Urine Blood (Negative) Urine Nitrate (Negative) Urine Bilirubin (Negative) Urine Urobilinogen (Negative) mg/dL Ur Leukocyte Jennifer ase (Negative) Urine RBC (0-2) /hpf Urine WBC (0-5) /hpf Ur Squamous Epith Cells (0-5) /hpf Amorphous Sediment Urine Bacteria (NONE) /hpf Fine Granular Cast s /lpf Serum Ketones (Negative) 10/19/20 10/19/20 10/19/20 Range/Units 07:21 07:38 08:12 WBC (4.0-10.0) 10^3/ uL RBC (4.1-5.3) 10^6/u L Hgb (11.7-16.6) g/dL Hct (42.0-52.0) % MCV (80-94) fL MCH (28.0-34.0) pg MCHC (30.0-36.0) g/dL RDW (12.1-15.1) % Plt Count (130-400) 10^3/c mm MPV (7.4-10.4) fL Lymph % (Auto) [place]ke % (Auto) Lymph # (Auto) [place] # (Auto) Total Counted (0-100) Atypical Lymphs % (0-5) % Absolute Neutrophi ls (1.4-6.5) 10^3/c mm Segmented Neutroph ils % Abs Segm Neuts (Ma n) (1.6-7.1) 10/cmm Band Neutrophils % Abs Band Neuts (Ma n) (0.0-1.2) 10^3/c mm Absolute Lymphocyt es (1.2-3.4) 10^3/c mm Lymphocytes (Manua l) % Monocytes (Manual) % Absolute Monocytes (0.1-0.6) 10^3/c mm Eosinophils (Manua l) % Absolute Eosinophi ls (0.0-0.7) 10^3/c mm Basophils (Manual) % Absolute Basophils (0.0-0.2) 10^3/c mm Platelet Estimate (Normal) Specimen Type Arterial Sample Site Radial, left ABG pH 7.45 (7.35-7.45) ABG pCO2 25.6 L (35-45) mmHg ABG pO2 87.9 (80.0-100.0) mmH g ABG HCO3 17.7 L (22-26) mmol/L ABG O2 Saturation 97.4 ABG Base Excess -4.1 L (-2.0-2.0) mmol/ L Madi Test Pos A-a O2 Gradient 3.5 L (5-10) mmHg Hematocrit 53.5 H (42-52) % Hgb O2 Saturation 95.7 (95-100) % Carboxyhemoglobin 1.2 (0.4-20.1) %THgb Methemoglobin 0.6 (0.4-1.5) % Total Hemoglobin 17.5 (14-18) g/dL Ionized Calcium 1.2 (1.1-1.4) mmol/L O2 Delivery Device Room air FiO2 21.0 % Dental Equipment Technician ID Cak Sodium 128.0 L (136-145) mmol/L Potassium 3.2 L (3.5-5.1) mmol/L Chloride (98-107) mmol/L Carbon Dioxide (22-29) mmol/L Anion Gap (5-19) BUN (6-20) mg/dL Creatinine (0.7-1.2) mg/dL GFR Calculation (90-130) mL/min Glucose 122.0 H (65-115) mg/dL Calculated Osmolal ity (285-295) mOsm/k g Calcium (8.5-10.5) mg/dL Magnesium (1.7-2.3) mg/dL Total Bilirubin (0.15-1.2) mg/dL AST (0-40) U/L ALT (0-41) U/L Alkaline Phosphata se (40-130) IU/L Creatine Kinase (39-308) U/L Troponin T Baselin e (0-15) ng/L Troponin T 120 Min [place] 17.92 H (0-15) ng/L Delta Troponin T -9.08 L (0-10) ABS# Total Protein (6.6-8.7) g/dL Albumin (3.5-5.2) g/dL Globulin (1.3-4.6) g/dL Lipase (13-60) U/L TSH (0.27-4.20) uIU/ mL Urine Color Dark yellow (Yellow) Urine Appearance Sl hazy (CLEAR) Urine pH 5 (5-7) Ur Specific Gravit y 1.015 (1.005-1.030) Urine Protein 1+ H (Negative) Urine Glucose (UA) Norm (Normal) Urine Ketones 1+ H (Negative) Urine Blood 2+ H (Negative) Urine Nitrate Negative (Negative) Urine Bilirubin 1+ H (Negative) Urine Urobilinogen 1 H (Negative) mg/dL Ur Leukocyte Jennifer ase 1+ H (Negative) Urine RBC None (0-2) /hpf Urine WBC 15-25 H (0-5) /hpf Ur Squamous Epith Cells 0-4 H (0-5) /hpf Amorphous Sediment Not Reportable Urine Bacteria 2+ H (NONE) /hpf Fine Granular Cast s 0-4 H /lpf Serum Ketones (Negative) Discharge Plan Discharge Patient Disposition: Admitted As Inpatient Admit Provider: Harry Black Clinical Impression: Acute dehydration, Hyponatremia, Hypokalemia, Nausea & vomiting, Cystitis Condition: Stable Discharge Diet: Cardiac Discharge Activity: Increase activity as tolerated Coding Level of Care Code 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
[2020-10-19 06:32] LABS: Ketone (Acetest) Serum Negative (Negative)
[2020-10-19 06:33] LABS: Alanine Aminotransferase 24 U/L (0-41); Albumin Level 5.8 g/dL (3.5-5.2); Alkaline Phosphatase 111 IU/L (40-130); Blood Urea Nitrogen 28 mg/dL (6-20); Calcium 11.2 mg/dL (8.5-10.5); Carbon Dioxide 16 mmol/L (22-29); Chloride 84 mmol/L (98-107); Creatine Phosphokinase 256 U/L (39-308); Globulin 3.3 g/dL (1.3-4.6); Glomerular Filtration Rate 32.1 mL/min (90-130); Glucose 161 mg/dL (65-115); Lipase 104 U/L (13-60); Magnesium 2.1 mg/dL (1.7-2.3); Osmolality Calculated 271 mOsm/kg (285-295); Sodium 126 mmol/L (136-145); Total Bilirubin 2.4 mg/dL (0.15-1.2); Total Protein 9.1 g/dL (6.6-8.7)
[2020-10-19 06:42] LABS: Anion Gap 29.2 (5-19); Aspartate Amino Transferase 33 U/L (0-40); Potassium 3.2 mmol/L (3.5-5.1); Troponin(5th) Baseline 27 ng/L (0-15)
[2020-10-19 07:06] LABS: Slide Review Slide Review Perform
[2020-10-19 07:09] LABS: Absolute Neutrophil 16.6 10^3/cmm (1.4-6.5); Absolute Segmented Neutrophil 15.6 10/cmm (1.6-7.1); Lymphocytes 20 %; Lymphocytes Absolute 6.4 10^3/cmm (1.2-3.4); Monocytes Absolute 1.7 10^3/cmm (0.1-0.6); Platelet Estimate Normal (Normal); Segmented Neutrophils 63 %; Total Cells Counted 100 (0-100)
[2020-10-19 07:10] LABS: Eosinophils 0 %
[2020-10-19 07:32] LABS: ABG PCO2 25.6 mmHg (35-45); ABG PH Result 7.45 (7.35-7.45); Alveolar-Arterial Oxygen Gradi 3.5 mmHg (5-10); Arterial Blood Gas Hematocrit 53.5 % (42-52); Base Excess ABG -4.1 mmol/L (-2.0-2.0); Blood Gas Allen Test Pos; Blood Gas Operator Identificat CAK; Blood Gas Sample Site Radial, left; Blood Gas Sample Type Arterial; Carboxyhemoglobin 1.2 %THgb (0.4-20.1); HCO3 ABG 17.7 mmol/L (22-26); HGB O2 Sat 95.7 % (95-100); Ionized Calcium Level - ABG 1.2 mmol/L (1.1-1.4); Methemoglobin 0.6 % (0.4-1.5); Oxygen Device ROOM AIR; Oxygen Saturation ABG 97.4; PO2 ABG 87.9 mmHg (80.0-100.0); Potassium Level - ABG 3.2 mmol/L (3.5-5.0); Total Hemoglobin 17.5 g/dL (14-18)
[2020-10-19 08:06] LABS: Add Urine Microscopic? YES; Bacteria Urine 2+ /hpf; Bilirubin Urine 1+ (Negative); Blood Urine 2+ (Negative); Glucose Urine UA Norm (Normal); Ketones Urine 1+ (Negative); Leukocyte Esterase Urine 1+ (Negative); Nitrate Urine Negative (Negative); Protein Urine 1+ (Negative); Specific Gravity, Urine 1.015 (1.005-1.030); Squamous Epithelial Cell Urine 0-4 /hpf (0-5); Urine Appearance SL Hazy (CLEAR); Urine Color Dark Yellow (Yellow); Urobilinogen Urine 1 mg/dL (Negative); WBC Urine 15-25 /hpf (0-5); pH Urine 5 (5-7)
[2020-10-19 08:07] LABS: Add Urine Culture? Yes; Fine Granular Casts Urine 0-4 /lpf
--- NOTE | 2020-10-19 08:09 | ECG_ITS ---
[facility] Test Date: 2020-10-19 Pat Name: Josue Cheng Department: Room: Gender: Male Hand Mixer: : 1970 Requested By: Torito Avilez Order Number: [id number] Archana MD: Placido Garza M.D. Measurements Intervals [place] Rate: 82 P: 93 DC: 151 QRS: 89 QRSD: 89 T: 118 QT: 381 QTc: 446 Interpretive Statements SINUS RHYTHM LATERAL MYOCARDIAL INFARCTION , OF INDETERMINATE AGE [40+ ms Q WAVE AND/OR ST/T ABNORMALITY IN I/aVL/V5/V6] MODERATE T-WAVE ABNORMALITY, CONSIDER ANTERIOR ISCHEMIA [-0.1+ mV T WAVE IN V3/V4] Compared to ECG 10/19/2020 06:10:50 Myocardial infarct finding now present T-wave abnormality still present Possible ischemia still present Electronically Signed On 10-19-2020 20:22:21 CDT by Placido Garza M.D. [id number]
[2020-10-19 08:37] LABS: Troponin 5 2HR 17.92 ng/L (0-15)
[2020-10-19 08:46] LABS: Troponin 5 2HR Delta -9.08 ABS# (0-10)
[2020-10-19 09:05] LABS: Thyroid Stimulating Hormone 1.94 uIU/mL (0.27-4.20)
--- NOTE | 2020-10-19 09:22 | PM.HP ---
Providers/Chief Complaint Admitting Physician: Harry Black MD Primary Care Provider: AWA Caro Chief Complaint: muscle cramps History of Present Illness [facility] Cheng is a 49 year old male who presents to the emergency department with history of vomiting, for the last 1 week. He reports he has had cyclical vomiting in the past. He denies any chest discomfort. He has had nausea with the vomiting. He has had abdominal pain, mainly epigastric area. He denies any fever. No history of Covid or exposure to it. He occasionally will have some loose stool when he vomits. No blood in emesis or stool and no black or tarry stool. He report reports he does use marijuana regularly, with his last dose 4 to 5 days ago. He states sometimes in the past when he has had significant nausea and vomiting and this time as well that standing in hot water such as a shower or in a bath helps. Review of Systems General: Reports: 10 or more systems reviewed and unremarkable except in HPI and below Const: Reports: chills; Denies: fever(s) Eyes: Denies: change in vision ENMT: Denies: throat pain Card: Denies: chest pain Resp: Denies: dyspnea GI: Reports: abdominal pain, nausea and vomiting : Denies: flank pain Musc: Reports: neck pain and back pain Skin/Breast: Denies: rash Neuro: Reports: headache(s) Psych: Denies: anxiety or depression Endo: Denies: polyuria Trevon/Lymph: Denies: easy bruising All/Imm: Denies: urticaria Medications/Allergies Home Medications Medication Instructions Recorded Confirmed Last Taken Type albuterol sulfate 2.5 mg INHALATION Q4H PRN 08/22/19 10/19/20 09/30/20 History albuterol sulfate 90 mcg/actuation 2 puff INHALATION Q6H PRN 08/22/19 10/19/20 09/30/20 History aerosol inhaler aspirin 81 mg tablet,delayed 81 mg PO DAILY@08/22/19 10/19/20 10/12/20 History release atorvastatin 80 mg tablet 80 mg PO DAILY 08/22/19 10/19/20 10/12/20 History budesonide 0.5 mg/2 mL suspension 0.25 mg INHALATION BID 08/22/19 10/19/20 07/30/20 History for nebulization buspirone 30 mg tablet 30 mg PO BID tab 08/22/19 10/19/20 10/12/20 History celecoxib 200 mg capsule 200 mg PO BID 08/22/19 10/19/20 10/12/20 History famotidine 20 mg tablet 20 mg PO BID 08/22/19 10/19/20 10/12/20 History fenofibrate nanocrystallized 48 mg 48 mg PO DAILY@08/22/19 10/19/20 10/12/20 History tablet ipratropium 0.5 mg-albuterol 3 mg 3 ml INHALATION QID PRN 08/22/19 10/19/20 09/30/20 History (2.5 mg base)/3 mL nebulization soln isosorbide mononitrate 30 mg 30 mg PO DAILY 08/22/19 10/19/20 10/12/20 History tablet,extended release 24 hr nitroglycerin 0.4 mg sublingual 0.4 mg SUBLINGUAL Q5M PRN 08/22/19 10/19/20 Unknown History tablet omega-3 fatty acids 1,000 mg 1,000 mg PO DAILY 08/22/19 10/19/20 10/12/20 History capsule quetiapine 50 mg tablet 50 mg PO BEDTIME 08/22/19 10/19/20 10/12/20 History tamsulosin 0.4 mg capsule 0.4 mg PO DAILY 08/22/19 10/19/20 10/12/20 History zonisamide 100 mg capsule 400 mg PO BEDTIME cap 08/22/19 10/19/20 10/12/20 History potassium chloride 10 mEq 20 meq PO BID 09/24/19 10/19/20 09/30/20 History tablet,extended release clonazepam 1 mg tablet 1 mg PO QID PRN tab 12/04/19 10/19/20 09/30/20 History ondansetron 4 mg PO Q6H PRN #14 tab 05/05/20 10/19/20 09/30/20 Rx citalopram 20 mg tablet 20 mg PO DAILY@05/27/20 10/19/20 10/12/20 History metoclopramide HCl [Reglan] 10 mg PO Q6H PRN #20 tab 10/17/20 10/19/20 Unknown Rx clopidogrel 75 mg PO DAILY@10/19/20 10/19/20 10/19/20 History metoprolol tartrate 12.5 mg PO BID 10/19/20 10/19/20 10/12/20 History pantoprazole 40 mg PO DAILY@10/19/20 10/19/20 10/12/20 History Allergies Allergy/AdvReac Type Severity Reaction Status Date / Time meperidine [From Demerol] Allergy Severe ALGY-Hives Verified 10/17/20 17:20 Beef Containing Products Allergy ADR-Diarrhe Verified 10/17/20 17:20 a Pork/Porcine Containing Allergy ADR-Diarrhe Verified 10/17/20 17:20 Products a gabapentin AdvReac Severe ADR-Seizure Verified 10/17/20 17:20 morphine AdvReac Severe ALGY-Hives Verified 10/17/20 17:20 tramadol AdvReac Severe ADR-Seizure Verified 10/17/20 17:20 PFSH Acute PFSH: Medical History (Updated 10/19/20 @ 12:32 by Harry Black MD) Anxiety and depression Atherosclerotic heart disease of [place] coronary artery without angina pectoris Bladder wall thickening Cervical spondylosis Chronic migraine Chronic pancreatitis Chronic shortness of breath Diverticulosis Essential (primary) hypertension GERD (gastroesophageal reflux disease) Heart attack Hx of coronary angiogram Mixed hyperlipidemia Osteoarthritis Radiculopathy, lumbar region Seizure disorder SOB (shortness of breath) Tobacco dependency Torsion of appendix testis Urethral stricture Surgical History H/O chest tube placement H/O left knee surgery H/O neck surgery H/O removal of testicle H/O right knee surgery History of appendectomy History of cholecystectomy Stented coronary artery Family History Brother Parkinson disease Cancer Family/Other Cancer Other CAD (coronary artery disease) Social History Smoking and tobacco status: former smoker Quit status (tobacco): has quit using tobacco Year quit tobacco: 2020 - 1PPD x 35 Years Smoking risk assessment/counseling performed?: Yes Alcohol intake: former Year of sobriety/quit date alcohol: 2009 Lives independently: Yes Household members: significant other Current occupational status: disabled History of recent travel: No Current gender identity: Male Vitals/I&O/Wt Last Vital Signs Temp 98.2 F 10/19/20 09:13 Pulse 83 10/19/20 09:13 Resp 16 10/19/20 09:13 BP 124/95 10/19/20 09:13 Pulse Ox 98 10/19/20 09:13 Weight last 48 hrs Weight 86.183 kg Physical Exam Narrative: EXAM NARRATIVE: General exam is a white male, conversant in no apparent distress HEENT: Pupils equally round. Oropharynx is clear. Neck is supple no lymphadenopathy or thyromegaly Cardiovascular regular rate and rhythm without murmur Lungs are clear no wheezing or crackles Abdomen is soft with positive bowel sounds. No obvious organomegaly. Tenderness to palpation is noted in the epigastric area. This appears mild. was deferred Extremities no cyanosis clubbing or edema Skin no rash Neuro no focal deficits. Data : 10/19/20 06:02 10/19/20 06:02 Other data: Manual differential demonstrates 6 atypical lymphs, and elevated absolute neutrophils. 4 bands are noted. ABG demonstrates a pH of 7.45, PCO2 26, PO2 87 Calcium 11.2 LFTs normal with exception of bilirubin of 2.4 Troponin XX 7 with repeat 17.9 at 120 minutes Lipase 104 TSH 1.94 Urinalysis demonstrates 15-25 whites, 0 reds and 2+ bacteria. Chest x-ray negative for any infiltrate. A&P Assessment and plan (1) Cyclic vomiting syndrome: Hydration Control of nausea Discussed with patient this potentially could be secondary to marijuana use. Last use was 4 to 5 days ago. Protonix 40 mg twice daily Clear liquid diet Status: Acute (2) Acute kidney injury: Check renal ultrasound Hydration Avoid renal toxic medication, including stopping home Celebrex Check CK Status: Acute (3) Hyponatremia: Close follow-up of sodium Check cortisol level which is pending as well as TSH. Status: Acute (4) Hypokalemia: Supplement Check magnesium level Status: Acute (5) Cystitis: Rocephin IV every 24 hours Status: Acute Additional A&P Information Leukocytosis. Likely secondary to cystitis and/or dehydration. Doubt any hematologic malignancy Elevated hemoglobin as well as elevated calcium. This is likely hemoconcentration Coronary artery disease. Continue aspirin, statin Anxiety depression, continue home medications Hypertension. Continue home meds. Chronic neck pain Marijuana use History of seizure disorder, continue home meds Multiple other medical problems as outlined in past medical history Full code Lovenox for DVT Attestations Medical Necessity Statement*: Will need less than 2 midnight stay for acute kidney injury, cyclic vomiting Coding Level of Care Code Acute Knife Setter for Chg Fwd Diagnoses Cyclic vomiting syndrome R11.15 Acute kidney injury N17.9 Hyponatremia E87.1 Hypokalemia E87.6 Cystitis N30.90
--- NOTE | 2020-10-19 10:59 | US_ITS ---
WS: [id number] RENAL ULTRASOUND HISTORY: cystitis, eval for hydroneprhosis/abscess COMPARISON: None available. TECHNIQUE: 2-D and color Doppler imaging of the kidney submitted. Right kidney: 11.6 cm x 5.0 cm x 4.1 cm. Normal size kidney. There is a simple cyst in the mid kidney measuring 2.1 x 2.4 x 2.2 cm. No hydrone phrosis or solid mass. Left kidney: 12.1 cm x 4.1 cm x 3.5 cm. Normal echogenicity with no hydronephrosis or mass. Additional cyst exophytic from the inferior pole measures 1.5 x 1.4 x 1.3 cm. Aorta: Normal. Urinary Bladder: Normal distention. US/US renal BI* [id number] IMPRESSION: 1. No hydronephrosis. 2. Bilateral renal cysts.
--- NOTE | 2020-10-19 11:00 | PC.NURSE ---
patient has a total of 2 liters fluid. rocephin not given in er bc/ potassium had not completed will be given in the floor
[2020-10-19] MEDS: enoxaparin 30 mg/0.3 mL Syringe SUBCUT (12:24)
[2020-10-19] MEDS: sodium chloride 0.9% 1,000 ML 125 ML IV ×2 (12:25→15:19)
[2020-10-19 13:00] LABS: Magnesium 2.2 mg/dL (1.7-2.3)
[2020-10-19 13:39] LABS: Troponin 5 6HR 15.73 ng/L (0-15)
[2020-10-19 14:57] LABS: Cortisol Random 33.57 ug/dL (2.47-19.5)
[2020-10-19] MEDS: pantoprazole DR 40 mg Tablet PO (17:09)
[2020-10-19] MEDS: budesonide 0.5 mg/2 mL Neb 0.25 MG INHALATION (20:23)
[2020-10-19] MEDS: CLONazepam 1 mg Tablet PO (20:42)
[2020-10-19] MEDS: metoclopramide 10 mg Tablet PO (20:42)
[2020-10-19] MEDS: zonisamide 100 MG Capsule 400 MG PO (20:43)
[2020-10-19] MEDS: metoprolol tartrate 25 mg Tablet 12.5 MG PO (20:46)
[2020-10-19] MEDS: quetiapine 100 mg Tablet 50 MG PO (20:54)
[2020-10-19] MEDS: sodium chloride 0.9% 500 ML 125 ML IV (23:43)
[2020-10-20] VITALS (13 sets, daily range): BP systolic 104–161; BP diastolic 67–91; PULSE 63–89; RESP 16–18; TEMP 36.4–37.2; O2SAT 96–100
[2020-10-20] MEDS: sodium chloride 0.9% 500 ML 125 ML IV ×2 (01:47→03:33)
[2020-10-20] MEDS: ondansetron 2 mg/ML SDV 2 mL 4 MG IVP ×3 (05:19→20:33)
[2020-10-20 07:12] LABS: Alanine Aminotransferase 17 U/L (0-41); Albumin Level 3.9 g/dL (3.5-5.2); Alkaline Phosphatase 74 IU/L (40-130); Aspartate Amino Transferase 26 U/L (0-40); Blood Urea Nitrogen 15 mg/dL (6-20); Calcium 8.7 mg/dL (8.5-10.5); Carbon Dioxide 19 mmol/L (22-29); Chloride 100 mmol/L (98-107); Globulin 2.6 g/dL (1.3-4.6); Glomerular Filtration Rate 103.2 mL/min (90-130); Glucose 101 mg/dL (65-115); Magnesium 1.9 mg/dL (1.7-2.3); Osmolality Calculated 277 mOsm/kg (285-295); Sodium 133 mmol/L (136-145); Total Bilirubin 1.4 mg/dL (0.15-1.2); Total Protein 6.5 g/dL (6.6-8.7)
[2020-10-20 07:27] LABS: Anion Gap 17.1 (5-19); Potassium 3.1 mmol/L (3.5-5.1)
[2020-10-20 07:49] LABS: Basophils # 0.1 10^3/uL (0.0-0.1); Basophils % 0.5 %; Eosinophils # 0.1 10^3/uL (0.0-0.8); Eosinophils % 0.9 %; Hematocrit 41.9 % (42.0-52.0); Hemoglobin 14.2 g/dL (11.7-16.6); Lymphocytes # 3.2 10^3/uL (0.8-4.8); Mean Corpuscular HGB Conc 33.9 g/dL (30.0-36.0); Mean Corpuscular Hemoglobin 32.7 pg (28.0-34.0); Mean Corpuscular Volume 96.5 fL (80-94); Mean Platelet Volume 10.1 fL (7.4-10.4); Monocytes # 1.2 10^3/uL (0.2-0.9); Monocytes % 9.1 %; Neutrophils # 8.08 10^3/uL (1.8-7.7); Neutrophils % 63.8 %; Nucleated Red Blood Cells % 0 %; Platelet Count 256 10^3/cmm (130-400); Red Blood Count 4.34 10^6/uL (4.1-5.3); Red Cell Distribution Width 11.9 % (12.1-15.1); White Blood Count 12.7 10^3/uL (4.0-10.0)
[2020-10-20 07:53] LABS: Slide Review Slide Review Perform
[2020-10-20] MEDS: budesonide 0.5 mg/2 mL Neb 0.25 MG INHALATION ×2 (08:34→20:45)
[2020-10-20] MEDS: cefTRIAXone 1,000 MG in sodium chloride 0.9% (plus) 50 ML 100 MG IV (09:20)
[2020-10-20] MEDS: aspirin 81 mg EC Tablet PO (09:20)
[2020-10-20] MEDS: potassium chloride oral liq 20 mEq/15 mL UDC 40 MEQ PO (09:20)
[2020-10-20] MEDS: clopidogrel 75 mg Tablet PO (09:20)
[2020-10-20] MEDS: isosorbide mononitrate ER 30 mg Tablet PO (09:21)
[2020-10-20] MEDS: citalopram 20 mg Tablet PO (09:21)
[2020-10-20] MEDS: metoprolol tartrate 25 mg Tablet 12.5 MG PO ×2 (09:21→20:31)
[2020-10-20] MEDS: tamsulosin 0.4 mg Capsule PO (09:21)
[2020-10-20] MEDS: atorvastatin 40 mg Tablet 80 MG PO (09:21)
[2020-10-20] MEDS: pantoprazole DR 40 mg Tablet PO ×2 (09:21→17:51)
[2020-10-20] MEDS: lidocaine 1% 5 ML in potassium chloride premix 100 ML 25 ML IV (09:22)
[2020-10-20] MEDS: fenofibrate 48 mg Tablet PO (09:24)
[2020-10-20] MEDS: CLONazepam 1 mg Tablet PO ×3 (09:28→20:40)
--- NOTE | 2020-10-20 13:41 | PM.PN ---
Subjective Subjective: Interval history: [place] reports his stomach is still bothering him quite a bit. He has not been able to eat very much. He feels nauseous but has not vomited. I visited with him in the morning, as well as the afternoon. Medications: Reviewed: Yes Vitals/I&O/Wt Last Vital Signs Temp 99.0 F 10/20/20 11:01 Pulse 66 10/20/20 11:01 Resp 18 10/20/20 11:01 BP 147/91 10/20/20 11:01 Pulse Ox 99 10/20/20 11:01 10/19/20 10/20/20 10/20/20 22:59 06:59 14:59 Intake Total 1225 / 2465 1479.166 / 3944.166 700 / 700 Output Total 1475 / 1475 Balance -250 / 990 1479.166 / 2469.166 700 / 700 Weight last 48 hrs Weight 86.183 kg Physical Exam Narrative: EXAM NARRATIVE: General exam no apparent distress Cardiovascular regular rate and rhythm without murmur Lungs clear Abdomen is soft positive bowel sounds Extremities no cyanosis clubbing or edema Data : 10/20/20 05:02 10/20/20 05:02 Micro: Microbiology 10/19/20 07:38 Urine Culture - Preliminary Urine,Clean Catch A&P Assessment and plan (1) Cyclic vomiting syndrome: Hydration Control of nausea Discussed with patient this potentially could be secondary to marijuana use. Last use was 5 to 6 days ago Protonix 40 mg twice daily Advance diet Status: Acute (2) Acute kidney injury: Renal ultrasound does not show any obstruction With hydration renal function has become normal Avoid renal toxic medication, including stopping home Celebrex CK was normal Status: Acute (3) Hyponatremia: Sodium has significantly improved Cortisol and TSH levels were essentially normal Status: Acute (4) Hypokalemia: Associated with hypomagnesemia. Supplement magnesium and potassium Status: Acute (5) Cystitis: Rocephin IV every 24 hours Status: Acute Additional A&P Information Leukocytosis. Likely secondary to cystitis and/or dehydration. Improved significantly Elevated hemoglobin as well as elevated calcium. This is likely hemoconcentration Coronary artery disease. Continue aspirin, statin Anxiety depression, continue home medications Hypertension. Continue home meds. Chronic neck pain Marijuana use History of seizure disorder, continue home meds Multiple other medical problems as outlined in past medical history Full code Lovenox for DVT Attestations Medical Necessity Statement*: Needs continued hospital stay for close monitoring secondary to cyclic vomiting. Patient still with significant nausea and concern of recurrent dehydration should he be discharged at this time. Coding Level of Care Code Acute [employer] for Shayy Fwd Diagnoses Cyclic vomiting syndrome R11.15 Acute kidney injury N17.9 Hyponatremia E87.1 Hypokalemia E87.6 Cystitis N30.90
[2020-10-20] MEDS: enoxaparin 40 mg/0.4 mL Syringe SUBCUT (14:11)
[2020-10-20] MEDS: sodium chloride 0.9% 500 ML 100 ML IV (14:13)
[2020-10-20] MEDS: sodium chloride 0.9% 1,000 ML 100 ML IV (17:51)
[2020-10-20] MEDS: quetiapine 100 mg Tablet 50 MG PO (20:32)
[2020-10-20] MEDS: zonisamide 100 MG Capsule 400 MG PO (20:32)
--- NOTE | 2020-10-20 21:21 | PC.NURSE ---
CHECKED PT BRIEF AND PT IS DRY.
[2020-10-21] VITALS (7 sets, daily range): BP systolic 108–125; BP diastolic 70–75; PULSE 58–87; RESP 16–19; TEMP 36.5–37.1; O2SAT 97–99
[2020-10-21] MEDS: sodium chloride 0.9% 1,000 ML 100 ML IV (03:55)
[2020-10-21 05:30] LABS: Basophils # 0.1 10^3/uL (0.0-0.1); Basophils % 0.6 %; Eosinophils # 0.1 10^3/uL (0.0-0.8); Eosinophils % 1.5 %; Hematocrit 37.4 % (42.0-52.0); Hemoglobin 12.6 g/dL (11.7-16.6); Lymphocytes # 2.7 10^3/uL (0.8-4.8); Lymphocytes % 31.4 %; Mean Corpuscular HGB Conc 33.7 g/dL (30.0-36.0); Mean Corpuscular Hemoglobin 33.1 pg (28.0-34.0); Mean Corpuscular Volume 98.2 fL (80-94); Mean Platelet Volume 9.4 fL (7.4-10.4); Monocytes # 0.8 10^3/uL (0.2-0.9); Monocytes % 9.3 %; Neutrophils # 4.77 10^3/uL (1.8-7.7); Neutrophils % 56.5 %; Nucleated Red Blood Cells % 0 %; Platelet Count 218 10^3/cmm (130-400); Red Blood Count 3.81 10^6/uL (4.1-5.3); White Blood Count 8.5 10^3/uL (4.0-10.0)
[2020-10-21 05:45] LABS: Anion Gap 11.3 (5-19); Blood Urea Nitrogen 10 mg/dL (6-20); Calcium 8.1 mg/dL (8.5-10.5); Carbon Dioxide 20 mmol/L (22-29); Chloride 107 mmol/L (98-107); Glomerular Filtration Rate 103.2 mL/min (90-130); Glucose 88 mg/dL (65-115); Osmolality Calculated 278 mOsm/kg (285-295); Potassium 3.3 mmol/L (3.5-5.1); Sodium 135 mmol/L (136-145)
--- NOTE | 2020-10-21 08:04 | PM.DCS ---
Discharge Providers Date of Admission: 10/19/20 08:56 Date of Discharge: October 21, 2020 Attending Provider at Admission: Harry Black MD Attending Provider at Discharge: Harry Black MD Primary Care Provider: AWA Caro Diagnoses at Discharge Discharge Diagnosis (1) Cyclic vomiting syndrome: Status: Acute (2) Acute kidney injury: Status: Acute (3) Hyponatremia: Status: Acute (4) Hypokalemia: Status: Acute (5) Cystitis: Status: Acute Reason for Visit Reason for Visit: muscle cramps Hospital Course Hospital Course Mr. Cheng is a 49-year-old white male who presented to the hospital with vomiting. He had had vomiting, and some loose stools several days prior to admission. He has a history of cyclic vomiting. He is a marijuana user and and last use 4 to 5 days previously. He was found to have significant electrolyte abnormalities with hypokalemia hypomagnesemia as well as some renal failure. He was placed in the hospital initially on observation, and rehydrated. Electrolyte abnormality was corrected. Nausea was corrected. Anti-inflammatories were discontinued. He was counseled in regards to marijuana use. With this he gradually improved and on second day of hospital stay he was still having some nausea and it was not thought that he could continue to hydrate himself at home. Therefore hospitalization was continued, and he was changed to regular admission. By October 21 he felt noting significant nausea. He was ready to go home. Electrolytes were corrected with the exception of mild hypokalemia which will be supplemented prior to discharge. Renal failure had resolved. Renal ultrasound done while in the hospital demonstrated bilateral renal cysts but no evidence of obstruction. Concern of UTI was present on admission but ultimately urine preliminary culture was negative and it was not thought he would need antibiotics on discharge. Physical Exam Narrative: EXAM NARRATIVE: General exam is no apparent distress Cardiovascular regular rate and rhythm without murmur Lungs clear Abdomen is soft with positive bowel sounds Extremities no cyanosis clubbing or edema Discharge Data Data Completed and Pending: Completed Studies During Hospitalization Category Date Time Status XR chest 1V lawrence ble [id number] Stat Exams 10/19/20 05:55 Completed US renal BI* [id number] Urgent Ultrasound 10/19/20 10:59 Completed Pending at discharge Category Date Time Status Urine Culture Sta t Lab 10/19/20 07:38 Results Labs from last 24 hours 10/21/20 10/21/20 05:00 05:00 WBC 8.5 RBC 3.81 L Hgb 12.6 Hct 37.4 L MCV 98.2 H MCH 33.1 MCHC 33.7 RDW 12.0 L Plt Count 218 MPV 9.4 Neut % (Auto) 56.5 Lymph % (Auto) 31.4 [place] % (Auto) 9.3 Eos % (Auto) 1.5 Baso % (Auto) 0.6 Neut # (Auto) 4.77 Lymph # (Auto) 2.7 [place] # (Auto) 0.8 Eos # (Auto) 0.1 Baso # (Auto) 0.1 Nucleated RBC % (a uto) 0 Nucleated RBCs # 0.0 Sodium 135 L Potassium 3.3 L Chloride 107 Carbon Dioxide 20 L Anion Gap 11.3 BUN 10 Creatinine 0.8 GFR Calculation 103.2 Glucose 88 Calculated Osmolal ity 278 L Calcium 8.1 L Vitals: Last Vital Signs Temp 97.7 F 10/21/20 07:50 Pulse 66 10/21/20 07:50 Resp 16 10/21/20 07:50 BP 108/70 10/21/20 07:50 Pulse Ox 99 10/21/20 07:50 Discharge Plan Discharge Patient Disposition: Home Condition: Stable Prescriptions: New pantoprazole 40 mg Tablet,Delayed Release (Dr/Ec) 40 mg PO BID Qty: 60 RF: 0 Continued buspirone 30 mg tablet 30 mg PO BID RF: 0 fenofibrate nanocrystallized 48 mg tablet 48 mg PO DAILY@09 RF: 0 isosorbide mononitrate 30 mg tablet extended release 24 hr 30 mg PO DAILY RF: 0 atorvastatin 80 mg tablet 80 mg PO DAILY RF: 0 quetiapine 50 mg tablet 50 mg PO BEDTIME RF: 0 aspirin [Adult Aspirin Regimen] 81 mg tablet,delayed release (DR/EC) 81 mg PO DAILY@09 RF: 0 zonisamide 100 mg capsule 400 mg PO BEDTIME RF: 0 tamsulosin 0.4 mg capsule 0.4 mg PO DAILY RF: 0 nitroglycerin [Nitrostat] 0.4 mg tablet, sublingual 0.4 mg SUBLINGUAL Q5M PRN (Reason: Chest Pain) RF: 0 omega-3 fatty acids 1,000 mg capsule 1,000 mg PO DAILY RF: 0 albuterol sulfate 2.5 mg /3 mL (0.083 %) solution for nebulization 2.5 mg INHALATION Q4H PRN (Reason: Shortness Of Breath) RF: 0 albuterol sulfate [ProAir HFA] 90 mcg/actuation HFA aerosol inhaler 2 puff INHALATION Q6H PRN (Reason: Shortness Of Breath) RF: 0 budesonide [Pulmicort] 0.5 mg/2 mL suspension for nebulization 0.25 mg INHALATION BID RF: 0 ipratropium-albuterol 0.5 mg-3 mg(2.5 mg base)/3 mL solution for nebulization 3 ml INHALATION QID PRN (Reason: Shortness Of Breath) RF: 0 potassium chloride [Klor-Con 10] 10 mEq tablet extended release 20 meq PO BID RF: 0 clonazepam 1 mg tablet 1 mg PO QID PRN (Reason: Anxiety) RF: 0 citalopram 20 mg tablet 20 mg PO DAILY@09 RF: 0 ondansetron 4 mg tablet,disintegrating 4 mg PO Q6H PRN (Reason: nausea and vomiting) Qty: 14 RF: 0 metoclopramide HCl [Reglan] 10 mg tablet 10 mg PO Q6H PRN (Reason: nausea and vomiting) Qty: 20 RF: 0 metoprolol tartrate 25 mg Tablet 12.5 mg PO BID RF: 0 clopidogrel 75 mg tablet 75 mg PO DAILY@09 RF: 0 Discontinued famotidine [Pepcid] 20 mg tablet 20 mg PO BID RF: 0 celecoxib [Celebrex] 200 mg capsule 200 mg PO BID RF: 0 pantoprazole 40 mg Tablet,Delayed Release (Dr/Ec) 40 mg PO DAILY@09 RF: 0 Discharge Orders: Discharge Order (Routine); Ordered 10/21/20 Ordered By: Harry Black Referrals: Amanda Simon FNP [Primary Care Provider] - 4-7 days Discharge Diet: Cardiac Discharge Activity: Increase activity as tolerated Patient Instructions: Opioid Safety Activity Restrictions/Additional Instructions: To see if you qualify for In-Home Services paid for by Medicaid, please call . Avoid all anti-inflammatories. Keep follow-up with primary care provider 3 to 5 days. Do not use any marijuana products. Discharge Attestations Time Spent in Discharge Care*: greater than 30 min Quality Metrics Clinical Quality Measures During this hospital stay, did patient experience: None Coding Level of Care Code Acute Chg FW DC note Diagnoses Cyclic vomiting syndrome R11.15 Acute kidney injury N17.9 Hyponatremia E87.1 Hypokalemia E87.6 Cystitis N30.90
[2020-10-21] MEDS: budesonide 0.5 mg/2 mL Neb 0.25 MG INHALATION (08:17)
[2020-10-21] MEDS: cefTRIAXone 1,000 MG in sodium chloride 0.9% (plus) 50 ML 100 MG IV (08:42)
[2020-10-21] MEDS: potassium chloride ER 20 mEq Tablet 40 MEQ PO (08:42)
[2020-10-21] MEDS: atorvastatin 40 mg Tablet 80 MG PO (08:42)
[2020-10-21] MEDS: aspirin 81 mg EC Tablet PO (08:43)
[2020-10-21] MEDS: fenofibrate 48 mg Tablet PO (08:43)
[2020-10-21] MEDS: isosorbide mononitrate ER 30 mg Tablet PO (08:43)
[2020-10-21] MEDS: tamsulosin 0.4 mg Capsule PO (08:43)
[2020-10-21] MEDS: metoclopramide 10 mg Tablet PO (08:43)
[2020-10-21] MEDS: pantoprazole DR 40 mg Tablet PO (08:43)
[2020-10-21] MEDS: metoprolol tartrate 25 mg Tablet 12.5 MG PO (08:43)
[2020-10-21] MEDS: citalopram 20 mg Tablet PO (08:43)
[2020-10-21] MEDS: CLONazepam 1 mg Tablet PO (08:43)
[2020-10-21] MEDS: clopidogrel 75 mg Tablet PO (08:43)
== END 2020-10-21 11:40 | disposition home or self-care (01) | DRG 683 ==
LOC: ER 08:47 → MEDSURG 10-20 07:55
PROVIDERS: Admitting Provider Internal Medicine; Emergency Provider Family Medicine; PCP Nurse Practitioner Family; Visit Provider Internal Medicine
DX: N17.9 Acute kidney failure, unspecified (principal); K86.0 Alcohol-induced chronic pancreatitis; E87.1 Hypo-osmolality and hyponatremia; R11.15 Cyclical vomiting syndrome unrelated to migraine; F12.90 Cannabis use, unspecified, uncomplicated; F41.8 Other specified anxiety disorders; I25.10 Atherosclerotic heart disease of native coronary artery without angina pectoris; Z95.5 Presence of coronary angioplasty implant and graft; G43.709 Chronic migraine without aura, not intractable, without status migrainosus; F10.11 Alcohol abuse, in remission; K57.90 Diverticulosis of intestine, part unspecified, without perforation or abscess without bleeding; I10 Essential (primary) hypertension; K21.9 Gastro-esophageal reflux disease without esophagitis; I25.2 Old myocardial infarction; E78.2 Mixed hyperlipidemia; M19.90 Unspecified osteoarthritis, unspecified site; M54.16 Radiculopathy, lumbar region; G40.909 Epilepsy, unspecified, not intractable, without status epilepticus; Z87.891 Personal history of nicotine dependence; Z90.79 Acquired absence of other genital organ(s); Z79.02 Long term (current) use of antithrombotics/antiplatelets; Z79.82 Long term (current) use of aspirin; G89.29 Other chronic pain; M54.2 Cervicalgia; E86.0 Dehydration; E87.6 Hypokalemia
CPT/HCPCS: 36415; 36600; 71045; 76770; 80048; 80051; 80053; 81001; 82009; 82330; 82533; 82550; 82805; 83690; 83735; 84443; 84484; 85007; 85025; 87086; 93005; 94640; 96372; J0696; J1650; J2405; J3480; J7030; J7040; J7611; J7626; J8597

== ENCOUNTER 2020-12-24 10:03 | Outpatient (CLI) | payer MEDICAID, SELFPAY ==
--- NOTE | 2020-12-24 10:08 | FL_ITS ---
WS: [id number] Exam: [place] barium swallow [id number] Date/Time of Exam: 12/24/2020 10:09 AM Reason For Exam: NAUSRA, VOMITING Fluoroscopy time: 1.3 minutes Preliminary survey shows operative fusion of the cervical spine from C5 to C7. The fusion is stable i n appearance and ossified. Swallowing function at the level of the oropharynx was normal. There is no aspiration. The esophagus is smooth in contour. No esophageal stricture or mass. Motility was normal. No gastroesophageal reflu x or hiatal hernia was noted. The esophagus was not displaced. FL/FL barium swallow [id number] IMPRESSION: 1. Unremarkable barium swallow.
== END 2020-12-24 10:04 | disposition home or self-care (01) ==
LOC: RAD 10:06
PROVIDERS: PCP Nurse Practitioner Family; Visit Provider Family Medicine
DX: R11.2 Nausea with vomiting, unspecified (principal)
CPT/HCPCS: 74220

== ENCOUNTER 2021-02-26 07:48 | Inpatient (IN) | payer MEDICAID, SELFPAY ==
[2021-02-26 08:13] VITALS: BP 120/78; PULSE 94; RESP 19; TEMP 36.6; O2SAT 98; BMI 24.2
--- NOTE | 2021-02-26 08:44 | ED_ITS ---
HPI - Nausea/Vomiting/Diarrhea General: Chief complaint: Nausea/Vomiting/Diarrhea Stated complaint: N/V LOSS OF APPETITE Time Seen by Provider: 02/26/21 07:51 History of Present Illness: HPI Narrative: 50-year-old male presents emergency room with complaints of abdominal pain. He had nausea vomiting and diarrhea for the last 5 days. Denies hematochezia melena hematemesis coffee-ground emesis. Patient in the past has had chronic pancreatitis. He is also had some issues with anxiety that seem to try to lyse abdominal pain in the past he was previously on clonazepam and still is he was also on pancreas enzymes which is no longer on his medications. At one point years ago when this began he had about 50 some ER visits in a calendar year and a couple of dozen CTs within 1 year. He denies any fever sweats chills he has had some cough and diarrhea . He has not been vaccinated for Covid. MD elicited complaint: nausea, diarrhea and abdominal pain Pertinent past history: pacreatitis Onset (ago): day(s) (5) Description of vomiting: food contents and watery Description of diarrhea: semi-solid Associated nausea: Yes Associated abdominal pain: Yes Location of pain: Epigastric Pain consistency: constant Severity: moderate Quality: cramping Exacerbating factors: none Relieving factors: none Associated symtoms: Reports bloating, anorexia, malaise and nausea; Denies altered mental status, anxiety, change in vision, chest pain, cough, diaphoresis, decreased urine output, dizziness, dysuria, epistaxis, fatigue, fecal incontinence, fevers/chills, headache(s), numbness, palpitations, rash, short of breath, syncope, tenesmus, tinnitus or weakness Review of Systems Const: Reports: malaise; Denies: fatigue or diaphoresis Eyes: Denies: change in vision ENMT: Denies: tinnitus or epistaxis Card: Denies: chest pain, palpitations or syncope Resp: Denies: dyspnea, productive cough or non-productive cough GI: Reports: nausea and bloating; Denies: fecal incontinence : Denies: dysuria Skin/Breast: Denies: rash or pruritus Neuro: Denies: headache(s) or dizziness Psych: Denies: anxiety PFSH ED PFSH: Medical History (Updated 02/27/21 @ 18:21 by Torito Mendosa DO) Anxiety and depression Atherosclerotic heart disease of tolowa dee-ni' coronary artery without angina pectoris Bladder wall thickening Cervical spondylosis Chronic migraine Chronic pancreatitis Chronic shortness of breath Diverticulosis Essential (primary) hypertension GERD (gastroesophageal reflux disease) Heart attack Hx of coronary angiogram Mixed hyperlipidemia Osteoarthritis Radiculopathy, lumbar region Seizure disorder SOB (shortness of breath) Tobacco dependency Torsion of appendix testis Urethral stricture Surgical History H/O chest tube placement H/O left knee surgery H/O neck surgery H/O removal of testicle H/O right knee surgery History of appendectomy History of cholecystectomy Stented coronary artery Family History Brother Parkinson disease Cancer Family/Other Cancer Other CAD (coronary artery disease) Social History Smoking and tobacco status: former smoker Quit status (tobacco): has quit using tobacco Year quit tobacco: 2019 - 1PPD x 35 Years Smoking risk assessment/counseling performed?: Yes Alcohol intake: former Year of sobriety/quit date alcohol: 2009 Lives independently: Yes Household members: significant other Current occupational status: disabled History of recent travel: No Current gender identity: Male Physical Exam Const: COMMON NORMALS: no acute distress EXAM LIMITATIONS: no altered mental status GENERAL APPEARANCE: cooperative and comfortable ORIENTATION/CONSCIOUSNESS: Yes awake, Yes oriented to person, Yes oriented to place and Yes oriented to time HENMT: COMMON NORMALS: normocephalic, atraumatic and hearing grossly normal bilaterally HEAD & SCALP: normocephalic and atraumatic Neck/C-Spine: COMMON NORMALS: no JVD Resp: COMMON NORMALS: normal respiratory effort, No retractions, No use of accessory muscles and clear to auscultation bilaterally AUSCULTATION: clear to auscultation bilaterally Cardio: COMMON NORMALS: no JVD, regular rate, regular rhythm and No murmurs present (Cardio) RATE: regular rate RHYTHM: regular rhythm GI: COMMON NORMALS: No hepatosplenomegaly present AUSCULTATION: Yes normoactive bowel sounds PALPATION: Yes Tenderness to palpation present (GI) (Moderate epigastric discomfort with palpation), No Guarding due to palpation present (GI) and Yes No hepatosplenomegaly present Extremity: COMMON NORMALS: normal to inspection, capillary refill normal, no clubbing, cyanosis or edema, no calf tenderness and no pedal edema Neuro: SENSORIUM/ORIENTATION: Yes oriented to person, Yes oriented to place and Yes oriented to time Skin: COMMON NORMALS: no rashes or lesions noted GENERAL SKIN EXAM: no rashes or lesions noted Procedures EJ/Peripheral Line Arm L: Time Out Performed: Yes Skin Cleansed in Sterile Fashion: Yes Size (gauge): 18 IV Secured and Dressing Applied: Yes Patient Tolerated Procedure: well Additional Comments: Multiple failed attempts by nursing. I was asked started peripheral IV. Using ultrasound guidance order peripheral IV and brachial vein in the left arm. Good venous return flushed and te well blood drawn from the IV site. IV secured and bandaged by nurse. Course Vital Signs: Vital signs: Vital Signs Temperature 98.3 F 02/27/21 16:00 Pulse Rate 72 02/27/21 16:00 Respiratory Rate 16 02/27/21 16:00 Blood Pressure 143/80 02/27/21 16:00 Pulse Oximetry 94 02/27/21 16:00 MDM - Nausea/Vomiting/Diarrhea MDM Narrative: Medical decision making narrative: Admit for abdominal pain hyponatremia hypokalemia as well as leukocytosis. Discussed with hospitalist orders written. Lab Data: Labs: Lab Results 02/26/21 02/26/21 02/26/21 Range/Units 10:00 10:00 10:00 WBC 21.9 H (4.0-10.0) 10^3/ uL RBC 5.77 H (4.1-5.3) 10^6/u L Hgb 19.2 H (11.7-16.6) g/dL Hct 52.7 H (42.0-52.0) % MCV 91.3 (80-94) fL MCH 33.3 (28.0-34.0) pg MCHC 36.4 H (30.0-36.0) g/dL RDW 11.8 L (12.1-15.1) % Plt Count 339 (130-400) 10^3/c mm MPV 9.5 (7.4-10.4) fL Neut % (Auto) 66.6 % Lymph % (Auto) 20.5 % [place] % (Auto) 9.9 % Eos % (Auto) 0.2 % Baso % (Auto) 0.6 % Neut # (Auto) 14.54 H (1.8-7.7) 10^3/u L Lymph # (Auto) 4.5 (0.8-4.8) 10^3/u L [place] # (Auto) 2.2 H (0.2-0.9) 10^3/u L Eos # (Auto) 0.1 (0.0-0.8) 10^3/u L Baso # (Auto) 0.1 (0.0-0.1) 10^3/u L Nucleated RBC % (a uto) 0 % Nucleated RBCs # 0.0 /100WBC Sodium Cancelled Potassium Cancelled Chloride Cancelled Carbon Dioxide Cancelled Anion Gap Cancelled BUN Cancelled Creatinine Cancelled GFR Calculation Cancelled Glucose Cancelled Calculated Osmolal ity Cancelled Calcium Cancelled Total Bilirubin Cancelled AST Cancelled ALT Cancelled Alkaline Phosphata se Cancelled Total Protein Cancelled Albumin Cancelled Globulin Cancelled Lipase Cancelled Urine Color (Yellow) Urine Appearance (CLEAR) Urine pH (5-7) Ur Specific Gravit y (1.005-1.030) Urine Protein (Negative) Urine Glucose (UA) (Normal) Urine Ketones (Negative) Urine Blood (Negative) Urine Nitrate (Negative) Urine Bilirubin (Negative) Urine Urobilinogen (Negative) mg/dL Ur Leukocyte Jennifer ase (Negative) Urine RBC (0-2) /hpf Urine WBC (0-5) /hpf Ur Squamous Epith Cells (0-5) /hpf Amorphous Sediment Urine Bacteria (NONE) /hpf Hyaline Casts /lpf Nasal/Oral COVID-1 9 PCR SARS-CoV-2 Ag (Rap id) Negative (Negative) 3 02/26/21 02/26/21 02/26/21 Range/Units 10:00 10:58 12:38 WBC (4.0-10.0) 10^3/ uL RBC (4.1-5.3) 10^6/u L Hgb (11.7-16.6) g/dL Hct (42.0-52.0) % MCV (80-94) fL MCH (28.0-34.0) pg MCHC (30.0-36.0) g/dL RDW (12.1-15.1) % Plt Count (130-400) 10^3/c mm MPV (7.4-10.4) fL Neut % (Auto) % Lymph % (Auto) % [place] % (Auto) % Eos % (Auto) % Baso % (Auto) % Neut # (Auto) (1.8-7.7) 10^3/u L Lymph # (Auto) (0.8-4.8) 10^3/u L [place] # (Auto) (0.2-0.9) 10^3/u L Eos # (Auto) (0.0-0.8) 10^3/u L Baso # (Auto) (0.0-0.1) 10^3/u L Nucleated RBC % (a uto) % Nucleated RBCs # /100WBC Sodium Cancelled Potassium Cancelled Chloride Cancelled Carbon Dioxide Cancelled Anion Gap Cancelled BUN Cancelled Creatinine Cancelled GFR Calculation Cancelled Glucose Cancelled Calculated Osmolal ity Cancelled Calcium Cancelled Total Bilirubin Cancelled AST Cancelled ALT Cancelled Alkaline Phosphata se Cancelled Total Protein Cancelled Albumin Cancelled Globulin Cancelled Lipase Cancelled Urine Color Yellow (Yellow) Urine Appearance Sl hazy (CLEAR) Urine pH 6 (5-7) Ur Specific Gravit y 1.015 (1.005-1.030) Urine Protein Neg (Negative) Urine Glucose (UA) Trace H (Normal) Urine Ketones 1+ H (Negative) Urine Blood 3+ H (Negative) Urine Nitrate Negative (Negative) Urine Bilirubin Neg (Negative) Urine Urobilinogen Norm (Negative) mg/dL Ur Leukocyte Jennifer ase Negative (Negative) Urine RBC 0-4 H (0-2) /hpf Urine WBC 5-10 H (0-5) /hpf Ur Squamous Epith Cells 5-10 H (0-5) /hpf Amorphous Sediment Not Reportable Urine Bacteria 1+ H (NONE) /hpf Hyaline Casts 0-4 H /lpf Nasal/Oral COVID-1 9 PCR Cancelled SARS-CoV-2 Ag (Rap id) (Negative) 02/26/21 Range/Units 13:29 WBC (4.0-10.0) 10^3/ uL RBC (4.1-5.3) 10^6/u L Hgb (11.7-16.6) g/dL Hct (42.0-52.0) % MCV (80-94) fL MCH (28.0-34.0) pg MCHC (30.0-36.0) g/dL RDW (12.1-15.1) % Plt Count (130-400) 10^3/c mm MPV (7.4-10.4) fL Neut % (Auto) % Lymph % (Auto) % [place] % (Auto) % Eos % (Auto) % Baso % (Auto) % Neut # (Auto) (1.8-7.7) 10^3/u L Lymph # (Auto) (0.8-4.8) 10^3/u L [place] # (Auto) (0.2-0.9) 10^3/u L Eos # (Auto) (0.0-0.8) 10^3/u L Baso # (Auto) (0.0-0.1) 10^3/u L Nucleated RBC % (a uto) % Nucleated RBCs # /100WBC Sodium 119 L* Potassium 3.2 L Chloride 80 L Carbon Dioxide 21 L Anion Gap 21.2 H BUN 62 H Creatinine 2.0 H GFR Calculation 35.7 L Glucose 126 H Calculated Osmolal ity 267 L Calcium 8.7 Total Bilirubin 2.1 H AST 70 H ALT 34 Alkaline Phosphata se 109 Total Protein 7.7 Albumin 4.7 Globulin 3.0 Lipase 40 Urine Color (Yellow) Urine Appearance (CLEAR) Urine pH (5-7) Ur Specific Gravit y (1.005-1.030) Urine Protein (Negative) Urine Glucose (UA) (Normal) Urine Ketones (Negative) Urine Blood (Negative) Urine Nitrate (Negative) Urine Bilirubin (Negative) Urine Urobilinogen (Negative) mg/dL Ur Leukocyte Jennifer ase (Negative) Urine RBC (0-2) /hpf Urine WBC (0-5) /hpf Ur Squamous Epith Cells (0-5) /hpf Amorphous Sediment Urine Bacteria (NONE) /hpf Hyaline Casts /lpf Nasal/Oral COVID-1 9 PCR SARS-CoV-2 Ag (Rap id) (Negative) Discharge Plan Discharge Patient Disposition: Admitted As Inpatient Admit Provider: Edouard Saxena Clinical Impression: Hyponatremia, Elevated WBC count, Abdominal pain, Nausea & vomiting, COPD (chronic obstructive pulmonary disease), Atherosclerotic heart disease of [place]low[place] de[place]-ni' coronary artery without angina pectoris Condition: Stable Coding Level of Care Code ED Group Home Paraprofessional for Chg 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
[2021-02-26 10:16] LABS: Basophils # 0.1 10^3/uL (0.0-0.1); Basophils % 0.6 %; Eosinophils # 0.1 10^3/uL (0.0-0.8); Eosinophils % 0.2 %; Hematocrit 52.7 % (42.0-52.0); Hemoglobin 19.2 g/dL (11.7-16.6); Lymphocytes # 4.5 10^3/uL (0.8-4.8); Lymphocytes % 20.5 %; Mean Corpuscular HGB Conc 36.4 g/dL (30.0-36.0); Mean Corpuscular Hemoglobin 33.3 pg (28.0-34.0); Mean Corpuscular Volume 91.3 fL (80-94); Mean Platelet Volume 9.5 fL (7.4-10.4); Monocytes # 2.2 10^3/uL (0.2-0.9); Monocytes % 9.9 %; Neutrophils # 14.54 10^3/uL (1.8-7.7); Neutrophils % 66.6 %; Nucleated Red Blood Cells % 0 %; Platelet Count 339 10^3/cmm (130-400); Red Blood Count 5.77 10^6/uL (4.1-5.3); Red Cell Distribution Width 11.8 % (12.1-15.1); White Blood Count 21.9 10^3/uL (4.0-10.0)
--- NOTE | 2021-02-26 10:19 | CTR_ITS ---
PROCEDURE INFORMATION: Exam: CT Abdomen And Pelvis With Contrast Exam date and time: 02/26/2021 10:19 AM Age: 50 years old Clinical indication: Nausea and vomiting; Prior surgery; Surgery date: 6+ months; Surgery type: Appy, lanette, orch; Patient HX: C/O n/v/d x 5 days; Additional info: Abd pain TECHNIQUE: Imaging protocol: Computed tomography of the abdomen and pelvis with contrast. Radiation optimization: All CT scans at this facility use at least one of these dose optimization techniques: automated exposure control; mA and/or kV adjustment per patient size (includes targeted exams where dose is matched to clinical indication); or iterative reconstruction. Contrast material: OMNI 300; Contrast volume: 95 ml; Contrast route: INTRAVENOUS (IV); COMPARISON: CT abdomen pelvis w con* [id number] 05/05/2020 10:04 PM RADIATION DOSE METRICS: Total DLP (mGy-cm): 1682.02 FINDINGS: Lungs: Incidental benign calcified granuloma at the left lung base. Liver: Regional decreased attenuation of the left hepatic lobe at the ligamentum teres suggestive of focal fatty infiltration. Gallbladder and bile ducts: The gallbladder has been removed. Pancreas: Normal. No ductal dilation. Spleen: Normal. No splenomegaly. Adrenal glands: Normal. No mass. Kidneys and ureters: Bilateral renal cysts have benign features the largest of which measures 2.6 cm in the right kidney. Follow-up is not necessary. Stomach and bowel: There is diverticulosis of the colon without evidence of diverticulitis. Appendix: There has been an appendectomy. Intraperitoneal space: Unremarkable. No free air. No significant fluid collection. Vasculature: There is scattered atherosclerotic plaque in the aorta and iliac arteries. Lymph nodes: Unremarkable. No enlarged lymph nodes. Urinary bladder: Bladder wall is thickened, similar to the prior study. Reproductive: There are calcifications in the prostate gland. Bones/joints: Unremarkable. No acute fracture. Soft tissues: There are benign-appearing soft tissue calcifications. CT/CT abdomen pelvis w con* [id number] IMPRESSION: The bladder wall is thickened. This is nonspecific and may represent bladder outlet obstruction, inflammation or infection. Neoplastic process is included in the differential. The bladder wall thickening appears stable when compared to the prior CT scan and chronic inflammation is the top differential. COMMENTS: Consistent with the [employer]'s Incidental Findings Committee white paper (J Am Diane Radiol 2018): Any incidental renal lesion less than 1 cm or classified as too small to characterize, or any incidental cystic renal lesion characterized as simple-appearing, is likely benign. No follow-up imaging is recommended for these lesions per consensus recommendations based on imaging criteria. Radiation Dose CTDIVOL = (mGy): DLP = 1682.02 (mGy-cm)
[2021-02-26] MEDS: sodium chloride 0.9% 1,000 ML 999 ML IV ×2 (10:27→14:44)
[2021-02-26 10:29] LABS: Urine Appearance SL Hazy (CLEAR); Urine Color Yellow (Yellow)
[2021-02-26 10:30] LABS: Add Urine Microscopic? YES; Bilirubin Urine Neg (Negative); Blood Urine 3+ (Negative); Glucose Urine UA Trace (Normal); Ketones Urine 1+ (Negative); Leukocyte Esterase Urine Negative (Negative); Nitrate Urine Negative (Negative); Protein Urine Neg (Negative); Specific Gravity, Urine 1.015 (1.005-1.030); Urobilinogen Urine Norm (Negative); pH Urine 6 (5-7)
[2021-02-26 10:31] LABS: RBC Urine 0-4 /hpf (0-2)
[2021-02-26 10:32] LABS: Add Urine Culture? No; Bacteria Urine 1+ /hpf; Hyaline Casts Urine 0-4 /lpf
[2021-02-26] MEDS: ondansetron 2 mg/ML SDV 2 mL 4 MG IVP (10:32)
[2021-02-26 10:46] LABS: SARS Covid-2 Antigen Negative (Negative)
[2021-02-26] MEDS: iohexol 300 mg/mL 100 mL Btl IV (13:44)
--- NOTE | 2021-02-26 14:02 | PC.PHAR ---
pts life partner dion verified pts medications-dion states the pt doesnt take kcl all the time states the pt has been trying to take since hes been sick ashley last filled in september for 10 tabs-notes are made in the pharmacy comments
[2021-02-26 14:05] LABS: Alanine Aminotransferase 34 U/L (0-41); Albumin Level 4.7 g/dL (3.5-5.2); Alkaline Phosphatase 109 IU/L (40-130); Anion Gap 21.2 (5-19); Aspartate Amino Transferase 70 U/L (0-40); Blood Urea Nitrogen 62 mg/dL (6-20); Calcium 8.7 mg/dL (8.5-10.5); Carbon Dioxide 21 mmol/L (22-29); Chloride 80 mmol/L (98-107); Glomerular Filtration Rate 35.7 mL/min (90-130); Glucose 126 mg/dL (65-115); Lipase 40 U/L (13-60); Osmolality Calculated 267 mOsm/kg (285-295); Potassium 3.2 mmol/L (3.5-5.1); Total Bilirubin 2.1 mg/dL (0.15-1.2); Total Protein 7.7 g/dL (6.6-8.7)
[2021-02-26 14:18] LABS: Sodium 119 mmol/L (136-145)
[2021-02-26 19:18] VITALS: PULSE 72; RESP 17; O2SAT 99
[2021-02-26] MEDS: sodium chloride 0.9% 1,000 ML 150 ML IV (21:34)
[2021-02-26 22:00] VITALS: PULSE 82
--- NOTE | 2021-02-26 22:47 | PM.HP ---
Providers/Chief Complaint Admitting Physician: Edouard Saxena DO Primary Care Provider: AWA Caro Chief Complaint: N/V LOSS OF APPETITE History of Present Illness [place] Jack Cheng is a 50 year old male with long hx of pancreatitis that finally starting improving with creon and klonopin preesnts with naausea and vomiting and abdominal pain. Lipase is normal. Elevated WBC. Dehydrated, low na and low k. admitted for these electrolyte disturbances and persistent emesis Review of Systems Const: Denies: fever(s) or chills Eyes: Denies: change in vision ENMT: Denies: throat pain or nasal congestion Card: Denies: chest pain or palpitations Resp: Denies: dyspnea or productive cough GI: Reports: abdominal pain, nausea and vomiting; Denies: hematemesis : Denies: difficulty urinating or dysuria Musc: Denies: back pain or extremity pain Skin/Breast: Denies: rash or lesions Neuro: Denies: headache(s) or dizziness Psych: Denies: anxiety or depression [place]/Lymph: Denies: easy bruising or easy bleeding Medications/Allergies Home Medications Medication Instructions Recorded Confirmed Last Taken Type albuterol sulfate 90 mcg/actuation 2 puff INHALATION Q6H PRN 08/22/19 02/26/21 09/30/20 History aerosol inhaler aspirin 81 mg tablet,delayed 81 mg PO DAILY@09 08/22/19 02/26/21 10/12/20 History release atorvastatin 80 mg tablet 80 mg PO DAILY 08/22/19 02/26/21 10/12/20 History budesonide 0.5 mg/2 mL suspension 0.5 mg INHALATION PRN 08/22/19 02/26/21 07/30/20 History for nebulization buspirone 30 mg tablet 30 mg PO BID tab 08/22/19 02/26/21 10/12/20 History ipratropium 0.5 mg-albuterol 3 mg 3 ml INHALATION QID PRN 08/22/19 02/26/21 09/30/20 History (2.5 mg base)/3 mL nebulization soln isosorbide mononitrate 30 mg 30 mg PO DAILY 08/22/19 02/26/21 10/12/20 History tablet,extended release 24 hr nitroglycerin 0.4 mg sublingual 0.4 mg SUBLINGUAL Q5M PRN 08/22/19 02/26/21 Unknown History tablet quetiapine 50 mg tablet 50 mg PO BEDTIME 08/22/19 02/26/21 10/12/20 History tamsulosin 0.4 mg capsule 0.4 mg PO BEDTIME 08/22/19 02/26/21 10/12/20 History zonisamide 100 mg capsule 400 mg PO BEDTIME cap 08/22/19 02/26/21 10/12/20 History potassium chloride 10 mEq 20 meq PO PRN 09/24/19 02/26/21 09/30/20 History tablet,extended release clonazepam 1 mg tablet 1 mg PO QID PRN tab 12/04/19 02/26/21 09/30/20 History ondansetron 4 mg PO Q6H PRN #14 tab 05/05/20 02/26/21 09/30/20 Rx citalopram 20 mg tablet 20 mg PO BEDTIME 05/27/20 02/26/21 10/12/20 History metoclopramide HCl [Reglan] 10 mg PO Q6H PRN #20 tab 10/17/20 02/26/21 Unknown Rx clopidogrel 75 mg PO DAILY@09 10/19/20 02/26/21 10/19/20 History metoprolol tartrate 12.5 mg PO BID 10/19/20 02/26/21 10/12/20 History celecoxib [Celebrex] 200 mg PO BID PRN 02/26/21 02/26/21 Unknown History pantoprazole 40 mg PO DAILY 02/26/21 02/26/21 Unknown History Allergies Allergy/AdvReac Type Severity Reaction Status Date / Time meperidine [From Demerol] Allergy Severe ALGY-Hives Verified 02/26/21 13:54 Beef Containing Products Allergy ADR-Diarrhe Verified 02/26/21 13:54 a Pork/Porcine Containing Allergy ADR-Diarrhe Verified 02/26/21 13:54 Products a gabapentin AdvReac Severe ADR-Seizure Verified 02/26/21 13:54 morphine AdvReac Severe ALGY-Hives Verified 02/26/21 13:54 tramadol AdvReac Severe ADR-Seizure Verified 02/26/21 13:54 PFSH Acute PFSH: Medical History (Updated 02/26/21 @ 22:56 by Edouard Saxena DO) Anxiety and depression Atherosclerotic heart disease of [place] coronary artery without angina pectoris Bladder wall thickening Cervical spondylosis Chronic migraine Chronic pancreatitis Chronic shortness of breath Diverticulosis Essential (primary) hypertension GERD (gastroesophageal reflux disease) Heart attack Hx of coronary angiogram Mixed hyperlipidemia Osteoarthritis Radiculopathy, lumbar region Seizure disorder SOB (shortness of breath) Tobacco dependency Torsion of appendix testis Urethral stricture Surgical History H/O chest tube placement H/O left knee surgery H/O neck surgery H/O removal of testicle H/O right knee surgery History of appendectomy History of cholecystectomy Stented coronary artery Family History Brother Parkinson disease Cancer Family/Other Cancer Other CAD (coronary artery disease) Social History Smoking and tobacco status: former smoker Quit status (tobacco): has quit using tobacco Year quit tobacco: 2019 - 1PPD x 35 Years Smoking risk assessment/counseling performed?: Yes Alcohol intake: former Year of sobriety/quit date alcohol: 2009 Lives independently: Yes Household members: significant other Current occupational status: disabled History of recent travel: No Current gender identity: Male Vitals/I&O/Wt Last Vital Signs Temp 97.8 F 02/26/21 08:13 Pulse 72 02/26/21 19:18 Resp 17 02/26/21 19:18 BP 120/78 02/26/21 08:13 Pulse Ox 99 02/26/21 19:18 02/26/21 02/26/21 02/26/21 06:59 14:59 22:59 Intake Total 1000 / 1000 1000 / 2000 Balance 1000 / 1000 1000 / 2000 Weight last 48 hrs Weight 68.039 kg Physical Exam Narrative: EXAM NARRATIVE: NAD, appears older than stated age. alert oriented. N no focal deficits ENT no icterus, hearing intact PERRLA EOMI mucuous membranes mosit and pin neck no jvd, bruits, lymphadenopathy H reg nl s1s2 mo murmur A soft no significant tenderness when I used my stethoscope. trigger points in epigastrum nl bs, mild tenderness with palp no r/r/g E no edema Data : 02/26/21 10:00 02/26/21 13:29 A&P Assessment and plan (1) Hyponatremia: Give fluids due to GIULIA as well. Status: Acute (2) Hypokalemia: replace Status: Acute (3) Elevated WBC count: on zosyn Status: Acute (4) Abdominal pain: no sign pain on my exam, will follow has GB and appy out Status: Acute (5) Nausea & vomiting: able to drink water during my exam, clear liquids Status: Acute Attestations Medical Necessity Statement*: pt with life threatening hypoNa and replacement needs to occur slowing to avoid life threatening complications. 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
[2021-02-26] MEDS: piperacillin-tazobactam 3.375 GM in sodium chloride 0.9% (plus) 100 ML IV (23:23)
[2021-02-26] MEDS: enoxaparin 40 mg/0.4 mL Syringe SUBCUT (23:23)
[2021-02-26] MEDS: dextrose 5%-sod chloride 0.9% 1,000 ML 100 ML IV (23:35)
[2021-02-27] VITALS (9 sets, daily range): BP systolic 119–162; BP diastolic 80–94; PULSE 53–78; RESP 14–18; TEMP 36.4–36.9; O2SAT 93–99
[2021-02-27] MEDS: piperacillin-tazobactam 3.375 GM in sodium chloride 0.9% (plus) 100 ML IV (06:09)
[2021-02-27 06:29] LABS: Basophils # 0.1 10^3/uL (0.0-0.1); Basophils % 0.4 %; Eosinophils # 0.1 10^3/uL (0.0-0.8); Eosinophils % 0.9 %; Hematocrit 45.9 % (42.0-52.0); Hemoglobin 16.7 g/dL (11.7-16.6); Mean Corpuscular HGB Conc 36.4 g/dL (30.0-36.0); Mean Corpuscular Hemoglobin 33.7 pg (28.0-34.0); Mean Corpuscular Volume 92.5 fL (80-94); Mean Platelet Volume 9.6 fL (7.4-10.4); Monocytes # 1.6 10^3/uL (0.2-0.9); Monocytes % 11.8 %; Neutrophils # 8.47 10^3/uL (1.8-7.7); Neutrophils % 62.8 %; Nucleated Red Blood Cells % 0 %; Platelet Count 303 10^3/cmm (130-400); Red Blood Count 4.96 10^6/uL (4.1-5.3); Red Cell Distribution Width 11.9 % (12.1-15.1); White Blood Count 13.5 10^3/uL (4.0-10.0)
[2021-02-27 06:52] LABS: Alanine Aminotransferase 33 U/L (0-41); Albumin Level 4.1 g/dL (3.5-5.2); Alkaline Phosphatase 88 IU/L (40-130); Anion Gap 16.9 (5-19); Aspartate Amino Transferase 70 U/L (0-40); Blood Urea Nitrogen 39 mg/dL (6-20); Calcium 8.7 mg/dL (8.5-10.5); Carbon Dioxide 23 mmol/L (22-29); Chloride 90 mmol/L (98-107); Globulin 2.6 g/dL (1.3-4.6); Glomerular Filtration Rate 71.1 mL/min (90-130); Glucose 132 mg/dL (65-115); Osmolality Calculated 275 mOsm/kg (285-295); Sodium 127 mmol/L (136-145); Total Bilirubin 2.3 mg/dL (0.15-1.2); Total Protein 6.7 g/dL (6.6-8.7)
[2021-02-27 06:53] LABS: Magnesium 2.2 mg/dL (1.7-2.3)
[2021-02-27 07:35] LABS: Potassium 2.9 mmol/L (3.5-5.1)
--- NOTE | 2021-02-27 07:59 | PC.NURSE ---
jerry for physician to inform her of a critical lab, waiting call back [phone]
[2021-02-27] MEDS: dextrose 5%-sod chloride 0.9% 1,000 ML 100 ML IV (08:57)
[2021-02-27] MEDS: docusate sodium 100 mg Capsule PO ×2 (08:58→17:21)
[2021-02-27] MEDS: famotidine 20 mg Tablet PO ×2 (08:58→17:21)
[2021-02-27] MEDS: potassium chloride ER 20 mEq Tablet 40 MEQ PO (11:08)
[2021-02-27] MEDS: levoFLOXacin 500 mg Tablet PO (17:45)
--- NOTE | 2021-02-27 18:21 | PM.PN ---
Vitals/I&O/Wt Last Vital Signs Temp 98.3 F 02/27/21 16:00 Pulse 72 02/27/21 16:00 Resp 16 02/27/21 16:00 BP 143/80 02/27/21 16:00 Pulse Ox 94 02/27/21 16:00 02/27/21 02/27/21 02/27/21 06:59 14:59 22:59 Intake Total 410 / 2410 1516.667 / 1516.667 878.333 / 2395.000 Balance 410 / 2410 1516.667 / 1516.667 878.333 / 2395.000 Weight last 48 hrs Weight 68.039 kg Physical Exam Narrative: EXAM NARRATIVE: NAD, appears older than stated age. alert oriented. H reg nl s1s2 mo murmur L: decreased BS throught without w/r/r A soft no significant tenderness nl BS E no edema Data : 02/27/21 05:56 02/27/21 05:56 A&P Assessment and plan (1) Hyponatremia: Improved on fluids. now lost IV. will monitor off fluids. Status: Acute (2) Hypokalemia: replaced K check mg - nl check phos - low, will replace orally Status: Acute (3) Elevated WBC count: was on zosyn, now no IV, change to levaquin Status: Acute (4) Abdominal pain: no further pain tolerating clear liquids. change to regular diet. Status: Acute (5) Nausea & vomiting: regular diet Status: Acute Attestations Medical Necessity Statement*: pt with life threatening hypoNa and replacement needs to occur slowing to avoid life threatening complications. 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
[2021-02-27] MEDS: albuterol 8 gm MDI 2 PUFF INHALATION (19:57)
[2021-02-27] MEDS: atorvastatin 40 mg Tablet 80 MG PO (20:33)
[2021-02-27] MEDS: tamsulosin 0.4 mg Capsule PO (20:34)
[2021-02-27] MEDS: citalopram 20 mg Tablet PO (20:34)
[2021-02-27] MEDS: quetiapine 25 mg Tablet 50 MG PO (20:34)
[2021-02-27] MEDS: CLONazepam 1 mg Tablet PO (20:34)
[2021-02-27] MEDS: zonisamide 100 MG Capsule 400 MG PO (21:31)
[2021-02-27 21:41] LABS: Basophils # 0.1 10^3/uL (0.0-0.1); Basophils % 0.5 %; Eosinophils # 0.1 10^3/uL (0.0-0.8); Eosinophils % 1.4 %; Hematocrit 40.4 % (42.0-52.0); Hemoglobin 14.9 g/dL (11.7-16.6); Lymphocytes % 29.1 %; Mean Corpuscular HGB Conc 36.9 g/dL (30.0-36.0); Mean Corpuscular Volume 92.2 fL (80-94); Mean Platelet Volume 9.3 fL (7.4-10.4); Monocytes # 1.2 10^3/uL (0.2-0.9); Monocytes % 11.2 %; Neutrophils # 5.77 10^3/uL (1.8-7.7); Neutrophils % 56.2 %; Nucleated Red Blood Cells % 0 %; Platelet Count 221 10^3/cmm (130-400); Red Blood Count 4.38 10^6/uL (4.1-5.3); Red Cell Distribution Width 11.8 % (12.1-15.1); White Blood Count 10.3 10^3/uL (4.0-10.0)
[2021-02-27] MEDS: enoxaparin 40 mg/0.4 mL Syringe SUBCUT (21:46)
[2021-02-28] VITALS (11 sets, daily range): BP systolic 103–129; BP diastolic 67–87; PULSE 54–82; RESP 18–24; TEMP 36.6–36.8; O2SAT 95–100
[2021-02-28] MEDS: metoclopramide 10 mg Tablet PO (02:05)
[2021-02-28 02:37] LABS: Quest SARS-CoV-2 RNA DETECTED (NOT DETECTED)
[2021-02-28] MEDS: CLONazepam 1 mg Tablet PO ×3 (05:50→20:32)
[2021-02-28 07:35] LABS: Anion Gap 13.8 (5-19); Blood Urea Nitrogen 17 mg/dL (6-20); Calcium 8.2 mg/dL (8.5-10.5); Carbon Dioxide 23 mmol/L (22-29); Chloride 93 mmol/L (98-107); Glomerular Filtration Rate 102.7 mL/min (90-130); Glucose 134 mg/dL (65-115); Osmolality Calculated 268 mOsm/kg (285-295); Sodium 127 mmol/L (136-145)
[2021-02-28 07:43] LABS: Potassium 2.8 mmol/L (3.5-5.1)
[2021-02-28] MEDS: BuSPIRONE 10 mg Tablet 30 MG PO ×2 (08:42→17:46)
[2021-02-28] MEDS: docusate sodium 100 mg Capsule PO ×2 (08:43→17:46)
[2021-02-28] MEDS: pantoprazole DR 40 mg Tablet PO ×2 (08:43→17:47)
[2021-02-28] MEDS: famotidine 20 mg Tablet PO (08:43)
[2021-02-28] MEDS: aspirin 81 mg EC Tablet PO (08:43)
[2021-02-28] MEDS: metoprolol tartrate 25 mg Tablet 12.5 MG PO ×2 (08:43→17:44)
[2021-02-28] MEDS: clopidogrel 75 mg Tablet PO (08:44)
[2021-02-28] MEDS: isosorbide mononitrate ER 30 mg Tablet PO (08:44)
--- NOTE | 2021-02-28 09:45 | PM.PN ---
Subjective Subjective: Interval history: Nauseated, having diarrhea. Poor oral intake. Has not been short of breath. Overall not feeling well. States he is just found out he tested positive for coronavirus. He has received vaccination. He does state he has underlying COPD, CAD with coronary stenting, additional comorbidities. Is concerned regarding severe COVID-19. Discussed with him consideration of treatment with monoclonal antibodies. He is interested in seeking treatment. Vitals/I&O/Wt Last Vital Signs Temp 98.0 F 02/28/21 08:00 Pulse 73 02/28/21 08:00 Resp 18 02/28/21 08:00 BP 129/87 02/28/21 08:00 Pulse Ox 100 02/28/21 08:00 02/27/21 02/28/21 02/28/21 22:59 06:59 14:59 Intake Total 1000.000 / 2516.667 120 / 120 Balance 1000.000 / 2516.667 120 / 120 Physical Exam Const: COMMON NORMALS: no acute distress and patient oriented x3 OTHER: Nauseated. HENMT: COMMON NORMALS: oropharynx normal Neck/C-Spine: COMMON NORMALS: no JVD Resp: COMMON NORMALS: normal respiratory effort and clear to auscultation bilaterally AUSCULTATION: clear to auscultation bilaterally Cardio: COMMON NORMALS: no JVD, regular rhythm, S1 normal heart sound present, S2 normal heart sound present and No murmurs present (Cardio) RHYTHM: regular rhythm HEART SOUNDS: S1 normal heart sound present and S2 normal heart sound present GI: COMMON NORMALS: Normal to inspection, nondistended, normoactive bowel sounds present and non-tender PALPATION: Yes Tenderness to palpation present (GI) (diffusely sore after vomiting) Extremity: COMMON NORMALS: no joint enlargement and no pedal edema Neuro: COMMON NORMALS: patient oriented x3 and moves all extremities Skin: COMMON NORMALS: no rashes or lesions noted GENERAL SKIN EXAM: no rashes or lesions noted Data : 02/27/21 21:30 02/28/21 06:53 A&P Assessment and plan (1) Hyponatremia: Sodium so far without improvement, has not increased form 127. Appetite is poor. Nausea vomiting, diarrhea. Tested positive for COVID-19 on PCR. IV access being attempted again today. Discussed with him liberalize sodium intake. Add Ensure Plus. NaCl PO BID Status: Acute (2) COVID-19: Underlying COPD, CAD, chronic pancreatitis. Risk factors of severe disease. Discussed with him consideration of treatment with monoclonal antibodies. He would like to seek treatment. Discussing with pharmacy. PICC line requested due to difficult peripheral access. Status: Acute (3) Hypokalemia: additional K PO check magnesium level Status: Acute (4) Elevated WBC count: was on zosyn, now no IV, change to levaquin Status: Acute (5) Abdominal pain: no further pain tolerating clear liquids. change to regular diet. Chronic urinary bladder wall thickening noted on CT. Chronic cystitis? Currently empirically on Levaquin. Follow-up with urology. Status: Acute (6) Nausea & vomiting: Discontinue celecoxib. Toradol. Increase pantoprazole to twice daily. Stop famotidine. COVID-19 positive. regular diet Status: Acute Attestations Medical Necessity Statement*: Continue admission for assessment management of persistent/worsening hyponatremia, nausea, vomiting, poor oral intake. 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
[2021-02-28] MEDS: potassium chloride ER 20 mEq Tablet 40 MEQ PO (10:51)
[2021-02-28] MEDS: sodium chloride 1 gm Tablet PO (17:46)
[2021-02-28] MEDS: levoFLOXacin 500 mg Tablet PO (17:46)
[2021-02-28] MEDS: morphine 4 mg/mL SDV 1 mL 2 MG IM (20:06)
[2021-02-28] MEDS: zonisamide 100 MG Capsule 400 MG PO (20:31)
[2021-02-28] MEDS: citalopram 20 mg Tablet PO (20:31)
[2021-02-28] MEDS: quetiapine 25 mg Tablet 50 MG PO (20:31)
[2021-02-28] MEDS: atorvastatin 40 mg Tablet 80 MG PO (20:31)
[2021-02-28] MEDS: tamsulosin 0.4 mg Capsule PO (20:31)
[2021-02-28] MEDS: enoxaparin 40 mg/0.4 mL Syringe SUBCUT (22:38)
[2021-03-01] VITALS (8 sets, daily range): BP systolic 107–124; BP diastolic 68–80; PULSE 57–76; RESP 14–20; TEMP 36.6–36.7; O2SAT 95–98
[2021-03-01] MEDS: morphine 4 mg/mL SDV 1 mL 2 MG IM ×2 (03:20→09:28)
[2021-03-01 05:52] LABS: Basophils % 0.3 %; Eosinophils # 0.3 10^3/uL (0.0-0.8); Eosinophils % 2.2 %; Hematocrit 40.6 % (42.0-52.0); Hemoglobin 14.2 g/dL (11.7-16.6); Lymphocytes # 4.6 10^3/uL (0.8-4.8); Lymphocytes % 39.9 %; Mean Corpuscular Hemoglobin 33.3 pg (28.0-34.0); Mean Corpuscular Volume 95.1 fL (80-94); Mean Platelet Volume 9.6 fL (7.4-10.4); Monocytes % 8.9 %; Neutrophils # 5.33 10^3/uL (1.8-7.7); Neutrophils % 46.4 %; Nucleated Red Blood Cells % 0 %; Platelet Count 229 10^3/cmm (130-400); Red Blood Count 4.27 10^6/uL (4.1-5.3); Red Cell Distribution Width 11.9 % (12.1-15.1); White Blood Count 11.5 10^3/uL (4.0-10.0)
[2021-03-01] MEDS: CLONazepam 1 mg Tablet PO (05:53)
[2021-03-01 06:07] LABS: Blood Urea Nitrogen 13 mg/dL (6-20); Calcium 8.5 mg/dL (8.5-10.5); Carbon Dioxide 23 mmol/L (22-29); Chloride 94 mmol/L (98-107); Glomerular Filtration Rate 102.7 mL/min (90-130); Glucose 104 mg/dL (65-115); Osmolality Calculated 264 mOsm/kg (285-295); Sodium 127 mmol/L (136-145)
[2021-03-01] MEDS: metoprolol tartrate 25 mg Tablet 12.5 MG PO (09:26)
[2021-03-01] MEDS: isosorbide mononitrate ER 30 mg Tablet PO (09:26)
[2021-03-01] MEDS: aspirin 81 mg EC Tablet PO (09:27)
[2021-03-01] MEDS: clopidogrel 75 mg Tablet PO (09:27)
[2021-03-01] MEDS: pantoprazole DR 40 mg Tablet PO (09:27)
[2021-03-01] MEDS: BuSPIRONE 10 mg Tablet 30 MG PO (09:28)
[2021-03-01] MEDS: docusate sodium 100 mg Capsule PO (09:28)
[2021-03-01] MEDS: sodium chloride 1 gm Tablet 2 GM PO (09:34)
--- NOTE | 2021-03-01 10:19 | PM.DCS ---
Discharge Providers Date of Admission: 02/26/21 16:45 Date of Discharge: March 01, 2021 Attending Provider at Admission: Edouard Saxena DO Attending Provider at Discharge: Delgado Morris Primary Care Provider: AWA Caro Diagnoses at Discharge Discharge Diagnosis (1) Hyponatremia: Status: Acute (2) COVID-19: Status: Acute (3) Hypokalemia: Status: Acute (4) Elevated WBC count: Status: Acute (5) Abdominal pain: Status: Acute (6) Nausea & vomiting: Status: Acute Reason for Visit Reason for Visit: N/V LOSS OF APPETITE Hospital Course Hospital Course Pleasant 50-year-old gentleman with history of recurrent nausea and vomiting, history of pancreatitis, admitted due to nausea vomiting, abdominal pain, with noted normal lipase. After vomiting episodes noted dehydrated with hyponatremia, hypokalemia. Treated with gentle IV hydration. On presentation with noted acute kidney injury as well which responded well to fluid challenge. Due to leukocytosis at presentation 21.9, empirically was treated with Zosyn. CT abdomen pelvis was performed with finding of chronic thickening of bladder wall, cannot exclude neoplastic process. He has previously followed with urology with regards to this, and additional follow-up is recommended for reevaluation. He reports occasional hematuria as well. After losing IV access he was transitioned to Levaquin by mouth. Sodium gradually improved but plateaued at 127. He was started on sodium chloride tablets initially 1 g twice daily, today increased to 2 g twice a day as sodium is still at 127. During hospitalization he was also assessed for COVID-19 and found positive for COVID-19 by PCR. Suspected nausea and vomiting may have been secondary to moderate COVID-19 illness. These have since resolved. He has had no respiratory symptoms and has not required any oxygen. Risk factors for severe COVID-19 illness were discussed with him. He had received vaccination. Due to risk factors to reduce chance of progression to severe illness initially he had agreed and wanted to pursue monoclonal antibody treatment, however, with delay in obtaining PICC line he subsequently changed his mind. As he is doing well, he decided he would not want to wait any further for monoclonal antibody infusion. He prefers to discharge home at the current time. Discussed with him to follow-up with primary provider to reassess sodium level. To reassess the need for continuation of sodium chloride tablets. His quetiapine dose currently is decreased to 25 mg as well in case contributing to hyponatremia. He reported drinking quite a bit of water when he thought he had trouble urinating, and this may have contributed to hyponatremia. During hospitalization hypokalemia replaced as well. He is continued on potassium replacements. Please recheck electrolyte levels and manage accordingly. He is cautioned against drinking excessive fluids, however, in case having any difficulties with urination is asked to seek medical attention immediately given acute kidney injury at presentation. Celebrex is discontinued. He is continued on Levaquin empirically to complete short course for now for possibility of urinary tract infection given thickening of urinary bladder, although urine culture was not revealing. He is asked to resume follow-up with urology to exclude malignancy as possible additional cause. With regards to heartburn she is PPI dose is increased to 40 mg twice daily. He reports undergoing upper endoscopy several months ago. Appears she had EGD in September. Findings note reflux esophagitis. Mild gastritis. Mild duodenitis. He is asked to stop Celebrex and avoid any NSAIDs. Physical Exam Const: COMMON NORMALS: no acute distress and patient oriented x3 HENMT: COMMON NORMALS: oropharynx normal Neck/C-Spine: COMMON NORMALS: no JVD Resp: COMMON NORMALS: normal respiratory effort and clear to auscultation bilaterally AUSCULTATION: clear to auscultation bilaterally Cardio: COMMON NORMALS: no JVD, regular rhythm, S1 normal heart sound present, S2 normal heart sound present and No murmurs present (Cardio) RHYTHM: regular rhythm HEART SOUNDS: S1 normal heart sound present and S2 normal heart sound present GI: COMMON NORMALS: Normal to inspection, nondistended, normoactive bowel sounds present, Soft to palpation and non-tender PALPATION: Yes Soft to palpation and Yes Tenderness to palpation present (GI) (mild diffuse discomfort) Extremity: COMMON NORMALS: no joint enlargement and no pedal edema Neuro: COMMON NORMALS: patient oriented x3 and moves all extremities Skin: COMMON NORMALS: no rashes or lesions noted GENERAL SKIN EXAM: no rashes or lesions noted Discharge Data Data Completed and Pending: Completed Studies During Hospitalization Category Date Time Status CT abdomen pelvis w con* [id number] Stat Cat Scan 02/26/21 10:19 Completed Pending at discharge Category Date Time Status Basic Metabolic P citlali AM LABS Lab 03/02/21 04:00 Ordered Basic Metabolic P citlali AM LABS Lab 03/03/21 04:00 Ordered Complete Blood Co unt w/Auto AM LABS Lab 03/02/21 04:00 Ordered Complete Blood Co unt w/Auto AM LABS Lab 03/03/21 04:00 Ordered Sodium Routine Lab 03/01/21 12:00 Ordered Labs from last 24 hours 03/01/21 03/01/21 05:12 05:12 WBC 11.5 H RBC 4.27 Hgb 14.2 Hct 40.6 L MCV 95.1 H MCH 33.3 MCHC 35.0 RDW 11.9 L Plt Count 229 MPV 9.6 Neut % (Auto) 46.4 Lymph % (Auto) 39.9 [place] % (Auto) 8.9 Eos % (Auto) 2.2 Baso % (Auto) 0.3 Neut # (Auto) 5.33 Lymph # (Auto) 4.6 [place] # (Auto) 1.0 H Eos # (Auto) 0.3 Baso # (Auto) 0.0 Nucleated RBC % (a uto) 0 Nucleated RBCs # 0.0 Sodium 127 L Potassium 3.0 L Chloride 94 L Carbon Dioxide 23 Anion Gap 13.0 BUN 13 Creatinine 0.8 GFR Calculation 102.7 Glucose 104 Calculated Osmolal ity 264 L Calcium 8.5 Vitals: Last Vital Signs Temp 97.9 F 03/01/21 07:44 Pulse 57 L 03/01/21 07:44 Resp 18 03/01/21 09:28 BP 107/68 03/01/21 07:44 Pulse Ox 95 03/01/21 07:44 Discharge Plan Discharge Patient Disposition: Home Condition: Stable Prescriptions: New levofloxacin 500 mg Tablet 500 mg PO Q24H Qty: 3 RF: 0 sodium chloride 1 gram Tablet 2 g PO BID Qty: 120 RF: 0 Continued buspirone 30 mg tablet 30 mg PO BID RF: 0 isosorbide mononitrate 30 mg tablet extended release 24 hr 30 mg PO DAILY RF: 0 atorvastatin 80 mg tablet 80 mg PO DAILY RF: 0 aspirin [Adult Aspirin Regimen] 81 mg tablet,delayed release (DR/EC) 81 mg PO DAILY@09 RF: 0 zonisamide 100 mg capsule 400 mg PO BEDTIME RF: 0 tamsulosin 0.4 mg capsule 0.4 mg PO BEDTIME RF: 0 nitroglycerin [Nitrostat] 0.4 mg tablet, sublingual 0.4 mg SUBLINGUAL Q5M PRN (Reason: Chest Pain) RF: 0 albuterol sulfate [ProAir HFA] 90 mcg/actuation HFA aerosol inhaler 2 puff INHALATION Q6H PRN (Reason: Shortness Of Breath) RF: 0 budesonide [Pulmicort] 0.5 mg/2 mL suspension for nebulization 0.5 mg INHALATION PRN RF: 0 ipratropium-albuterol 0.5 mg-3 mg(2.5 mg base)/3 mL solution for nebulization 3 ml INHALATION QID PRN (Reason: Shortness Of Breath) RF: 0 potassium chloride [Klor-Con 10] 10 mEq tablet extended release 20 meq PO PRN RF: 0 clonazepam 1 mg tablet 1 mg PO QID PRN (Reason: Anxiety) RF: 0 citalopram 20 mg tablet 20 mg PO BEDTIME RF: 0 ondansetron 4 mg tablet,disintegrating 4 mg PO Q6H PRN (Reason: nausea and vomiting) Qty: 14 RF: 0 metoclopramide HCl [Reglan] 10 mg tablet 10 mg PO Q6H PRN (Reason: nausea and vomiting) Qty: 20 RF: 0 metoprolol tartrate 25 mg Tablet 12.5 mg PO BID RF: 0 clopidogrel 75 mg tablet 75 mg PO DAILY@09 RF: 0 Changed quetiapine 50 mg tablet 25 mg PO BEDTIME Qty: 0 RF: 0 pantoprazole 40 mg tablet,delayed release (DR/EC) 40 mg PO BIDWM Qty: 60 RF: 0 Discontinued Celebrex 200 mg Capsule 200 mg PO BID PRN (Reason: Pain) RF: 0 Discharge Orders: Discharge Order (Routine); Ordered 03/01/21 Ordered By: Delgado Morris Referrals: Amanda Simon FNP [Primary Care Provider] - 03/10/21 9:00 am Lito San MD [Physician] - 03/18/21 9:30 am (Urinary bladder thickening, occasional hematuria) Discharge Diet: Regular Discharge Activity: Increase activity as tolerated Patient Instructions: Hyponatremia (GEN) Activity Restrictions/Additional Instructions: Please follow-up with your primary doctor in 3-4 days. Please have them recheck sodium level. Avoid excessive water intake. In case you notice you are needing to drink quite a bit of water, or if you notice any difficulties with urination or other concerning symptoms, seek medical attention. You are for now continued on sodium chloride tablets due to decreased sodium level. After rechecking sodium level with your primary doctor please discuss whether continuation of these tablets is still needed. Please note that your quetiapine dose is decreased to 25 mg as it can contribute to low sodium level. Please discuss with your primary doctor after rechecking sodium level. Please note that you have COVID-19 infection. Currently this infection is not severe. Due to risk of developing severe infection you are offered monoclonal antibody therapy. In case you change your mind about receiving therapy, please discuss with your primary provider. Please isolate for additional 6 days as you may be able to spread the infection to other people. In case you start feeling short of breath, having chest pain, fainting, extreme fatigue, severe nausea or vomiting with inability to take food or drink by mouth, please call [phone]. Please follow-up with urologist regarding thickening of the urinary bladder to help exclude malignancy or other more dangerous causes. Continue potassium replacement for low potassium level. Have your primary doctor recheck your potassium level. Please note that your Protonix dose is increased to twice daily. Please avoid any NSAIDs like Celebrex, ibuprofen, Aleve, etc. as they may contribute to inflammation in your stomach. Please discuss again with your primary doctor if your symptoms of heartburn are not improving regarding consideration of additional testing and treatment of H. pylori infection which may not have been eradicated, or looking for other causes. Discharge Attestations Time Spent in Discharge Care*: greater than 30 min Quality Metrics Clinical Quality Measures During this hospital stay, did patient experience: None Coding Level of Care Code Acute [facility] note Diagnoses Hyponatremia E87.1 COVID-19 U07.1 Hypokalemia E87.6 Elevated WBC count D72.829 Abdominal pain R10.9 Nausea & vomiting R11.2
[2021-03-01] MEDS: albuterol 8 gm MDI 2 PUFF INHALATION (10:34)
--- NOTE | 2021-03-01 11:03 | PC.NURSE ---
pt refused k-rider, physician informed . pt understands importance of medication.
== END 2021-03-01 10:50 | disposition home or self-care (01) | DRG 178 ==
LOC: ER 07:59 → MEDSURG 16:58
PROVIDERS: Admitting Provider Internal Medicine; Emergency Provider Family Medicine; PCP Nurse Practitioner Family; Visit Provider Internal Medicine
DX: U07.1 COVID-19 (principal); E87.1 Hypo-osmolality and hyponatremia; K86.1 Other chronic pancreatitis; N39.0 Urinary tract infection, site not specified; N17.9 Acute kidney failure, unspecified; E87.6 Hypokalemia; E86.0 Dehydration; F41.8 Other specified anxiety disorders; I25.10 Atherosclerotic heart disease of native coronary artery without angina pectoris; Z95.5 Presence of coronary angioplasty implant and graft; G43.709 Chronic migraine without aura, not intractable, without status migrainosus; I10 Essential (primary) hypertension; K21.9 Gastro-esophageal reflux disease without esophagitis; I25.2 Old myocardial infarction; E78.2 Mixed hyperlipidemia; M54.16 Radiculopathy, lumbar region; Z87.891 Personal history of nicotine dependence; J44.9 Chronic obstructive pulmonary disease, unspecified; Z79.02 Long term (current) use of antithrombotics/antiplatelets; Z79.51 Long term (current) use of inhaled steroids; Z79.82 Long term (current) use of aspirin
CPT/HCPCS: 36415; 74177; 80048; 80053; 81001; 83690; 83735; 84100; 85025; 87426; 87635; 94640; 96361; 96372; 96374; 99285; J1650; J2270; J2405; J2543; J3535; J7030; J8597; Q9967

== ENCOUNTER 2021-03-20 07:40 | Observation (INO) | payer MEDICAID, SELFPAY ==
[2021-03-20] VITALS (11 sets, daily range): BP systolic 97–158; BP diastolic 55–115; PULSE 63–107; RESP 14–18; TEMP 36.4–37; O2SAT 94–99; BMI 29.7
--- NOTE | 2021-03-20 08:08 | W.ED.NAVMDI ---
Documented by User: JOSE Herrera 03/20/21 12:57 HPI - Nausea/Vomiting/Diarrhea General: Chief complaint: Nausea/Vomiting/Diarrhea Stated complaint: VOMITING Time Seen by Provider: 03/20/21 07:55 Source: patient Mode of arrival: ambulatory Limitations: no limitations History of Present Illness: HPI Narrative: Patient is a 50-year-old male who presents to ED today with a complaint of nausea, vomiting, abdominal pain over the past week. Patient tells me he has a history of cyclic vomiting syndrome and chronic pancreatitis. He states he has not been able to hold anything down over the past week. Patient was recently hospitalized at [facility] for COVID symptoms. Patient states he tested positive for COVID at the beginning of the month. MD elicited complaint: nausea, vomiting and abdominal pain Pertinent past history: cyclical vomiting and pacreatitis Onset (ago): day(s) Associated nausea: Yes Associated abdominal pain: Yes Location of pain: LUQ Pain consistency: constant Exacerbating factors: eating Relieving factors: none Associated symtoms: Reports nausea; Denies chest pain, dizziness, dysuria, fatigue, headache(s) or malaise Review of Systems Const: Denies: fever(s), chills, body aches, fatigue or malaise ENMT: Denies: throat pain, odynophagia, nasal discharge or nasal congestion Card: Denies: chest pain Resp: Denies: dyspnea GI: Reports: abdominal pain, nausea and vomiting; Denies: hematemesis, coffee ground emesis, change in stool character, hematochezia or melena : Denies: flank pain or dysuria Musc: Denies: neck pain or back pain Skin/Breast: Denies: rash Neuro: Denies: headache(s), numbness in extremities, weakness in extremities, sensory changes or dizziness PFS ED PFSH: Medical History (Updated 03/21/21 @ 11:58 by Samson Ling MD) Anxiety and depression Atherosclerotic heart disease of [place] coronary artery without angina pectoris Bladder wall thickening Cervical spondylosis Chronic migraine Chronic pancreatitis Chronic shortness of breath COPD (chronic obstructive pulmonary disease) Diverticulosis Essential (primary) hypertension GERD (gastroesophageal reflux disease) H. pylori infection Heart attack Hx of coronary angiogram Mixed hyperlipidemia Osteoarthritis Radiculopathy, lumbar region Seizure disorder SOB (shortness of breath) Tobacco dependency Torsion of appendix testis Urethral stricture Surgical History H/O chest tube placement H/O left knee surgery H/O neck surgery H/O removal of testicle H/O right knee surgery History of appendectomy History of cholecystectomy Stented coronary artery Family History Brother Parkinson disease Cancer Family/Other Cancer Other CAD (coronary artery disease) Social History (Updated 03/20/21 @ 14:27 by Delgado Morris MD) Smoking and tobacco status: current every day smoker cigarettes [ Other cigarette details: Had quit but today picked up again ] Quit status (tobacco): has quit using tobacco Year quit tobacco: 2019 - 1PPD x 35 Years Smoking risk assessment/counseling performed?: Yes Alcohol intake: former Year of sobriety/quit date alcohol: 2009 Lives independently: Yes Household members: significant other Current occupational status: disabled History of recent travel: No Current gender identity: Male Physical Exam Const: COMMON NORMALS: no acute distress, patient oriented x3, no limitations and alert GENERAL APPEARANCE: cooperative ORIENTATION/CONSCIOUSNESS: Yes awake, Yes oriented to person, Yes oriented to place and Yes oriented to time OTHER: appears chronically ill HENMT: COMMON NORMALS: normocephalic and atraumatic HEAD & SCALP: normal to inspection, normocephalic and atraumatic Resp: COMMON NORMALS: normal respiratory effort and clear to auscultation bilaterally AUSCULTATION: clear to auscultation bilaterally Cardio: COMMON NORMALS: regular rate and regular rhythm RATE: regular rate RHYTHM: regular rhythm GI: COMMON NORMALS: Soft to palpation, No hepatosplenomegaly present and no masses INSPECTION: Yes other (abdominal ecchymosis from subq anticoagulation while in hospital) PALPATION: Yes Soft to palpation, Yes Tenderness to palpation present (GI) (throughout L abdomen ) and Yes No hepatosplenomegaly present Extremity: COMMON NORMALS: capillary refill normal, no clubbing, cyanosis or edema, no calf tenderness and no pedal edema Neuro: ALISA COMA SCALE: document GCS findings [place] coma scale eye opening: Spontaneous [place] coma scale verbal response: Orientated [place] coma scale motor response: Obey commands [place] coma scale total score: 15 COMMON NORMALS: patient oriented x3, CN's II-XII intact bilaterally, moves all extremities, no focal motor deficits and no sensory deficits noted SENSORIUM/ORIENTATION: Yes alert, Yes oriented to person, Yes oriented to place and Yes oriented to time Skin: COMMON NORMALS: no rashes or lesions noted GENERAL SKIN EXAM: no rashes or lesions noted Course Reevaluation(s): Reevaluation #1: Patient has finished 1L fluids and states N/V has improved. He has been able to hold down PO fluids. Consultations: Consultation #1: Dr. Morris?agrees to admit to observation Vital Signs: Vital signs: Vital Signs Temperature 98.3 F 03/21/21 17:43 Pulse Rate 66 03/21/21 17:43 Respiratory Rate 15 03/21/21 17:43 Blood Pressure 112/68 03/21/21 17:43 Pulse Oximetry 97 03/21/21 17:43 MDM - Nausea/Vomiting/Diarrhea MDM Narrative: Medical decision making narrative: Patient here for intractable nausea and vomiting. Patient states he was just hospitalized at [facility] for similar symptoms but states he failed to improve after discharge. Records were requested almost 5 hours ago and we still have not received them. Patient was given fluids and antiemetics in the ED here and he has not had any further episodes of nausea and vomiting. He was able to hold down a small amount of water but does not feel like he can eat. Labs show hyponatremia at 128, hypokalemia at 3.3, anion gap of 23, mild elevations to BUN/CR at 35/1.3, and mild hypomagnesemia 1.6. Patient has hematuria in which she has seen Dr. San for. Cystoscopy was held off secondary to patient not feeling very well during the visit. Patient does not feel like he can go home at this time therefore spoke to Dr. Morris was agreeable to observation. Lab Data: Labs: Lab Results 03/20/21 03/20/21 03/20/21 Range/Units 08:35 08:35 08:35 WBC 11.7 H (4.0-10.0) 10^3/ uL RBC 5.01 (4.1-5.3) 10^6/u L Hgb 16.7 H (11.7-16.6) g/dL Hct 46.4 (42.0-52.0) % MCV 92.6 (80-94) fl MCH 33.3 (28.0-34.0) pg MCHC 36.0 (30.0-36.0) g/dL RDW 12.0 L (12.1-15.1) % Plt Count 331 (130-400) 10^3/c mm MPV 8.7 (7.4-10.4) fL Neut % (Auto) 79.2 % Lymph % (Auto) 10.7 % Merrick % (Auto) 9.3 % Eos % (Auto) 0.1 % Baso % (Auto) 0.4 % Neut # (Auto) 9.30 H (1.8-7.7) 10^3/u L Lymph # (Auto) 1.3 (0.8-4.8) 10^3/u L Merrick # (Auto) 1.1 H (0.2-0.9) 10^3/u L Eos # (Auto) 0.0 (0.0-0.8) 10^3/u L Baso # (Auto) 0.1 (0.0-0.1) 10^3/u L Nucleated RBC % (a uto) 0 % Nucleated RBCs # 0.0 /100WBC Sodium 128 L (136-145) mmol/L Potassium 3.3 L (3.5-5.1) mmol/L Chloride 87 L (98-107) mmol/L Carbon Dioxide 21 L (22-29) mmol/L Anion Gap 23.3 H (5-19) BUN 35 H (6-20) mg/dL Creatinine 1.3 H (0.7-1.2) mg/dL GFR Calculation 58.7 L (90-130) mL/min Glucose 149 H (65-115) mg/dL Calculated Osmolal ity 277 L (285-295) mOsm/k g Calcium 10.1 (8.5-10.5) mg/dL Magnesium 1.6 L (1.7-2.3) mg/dL Total Bilirubin 2.0 H (0.15-1.2) mg/dL AST 28 (0-40) U/L ALT 21 (0-41) U/L Alkaline Phosphata se 97 (40-130) IU/L Total Protein 8.1 (6.6-8.7) g/dL Albumin 4.5 (3.5-5.2) g/dL Globulin 3.6 (1.3-4.6) g/dL Lipase 29 (13-60) U/L Urine Color (Yellow) Urine Appearance (CLEAR) Urine pH (5-7) Ur Specific Gravit y (1.005-1.030) Urine Protein (Negative) Urine Glucose (UA) (Normal) Urine Ketones (Negative) Urine Blood (Negative) Urine Nitrate (Negative) Urine Bilirubin (Negative) Urine Urobilinogen (Negative) mg/dL Ur Leukocyte Jennifer ase (Negative) Urine RBC (0-2) /hpf Urine WBC (0-5) /hpf Ur Squamous Epith Cells (0-5) /hpf Amorphous Sediment Urine Bacteria (NONE) /hpf Urine Mucus /hpf Urine Opiates Scre en (Negative) ng/mL Ur Barbiturates Sc reen (Negative) ng/mL Ur Phencyclidine S crn (Negative) ng/mL Ur Amphetamines Sc reen (Negative) ng/mL U Benzodiazepines Scrn (Negative) ng/mL Urine Cocaine Scre en (Negative) ng/mL U Marijuana (THC) Screen (Negative) ng/mL Monoscreen (Negative) 03/20/21 03/20/21 03/20/21 Range/Units 08:35 10:10 10:10 WBC (4.0-10.0) 10^3/ uL RBC (4.1-5.3) 10^6/u L Hgb (11.7-16.6) g/dL Hct (42.0-52.0) % MCV (80-94) fl MCH (28.0-34.0) pg MCHC (30.0-36.0) g/dL RDW (12.1-15.1) % Plt Count (130-400) 10^3/c mm MPV (7.4-10.4) fL Neut % (Auto) % Lymph % (Auto) % Merrick % (Auto) % Eos % (Auto) % Baso % (Auto) % Neut # (Auto) (1.8-7.7) 10^3/u L Lymph # (Auto) (0.8-4.8) 10^3/u L Merrick # (Auto) (0.2-0.9) 10^3/u L Eos # (Auto) (0.0-0.8) 10^3/u L Baso # (Auto) (0.0-0.1) 10^3/u L Nucleated RBC % (a uto) % Nucleated RBCs # /100WBC Sodium (136-145) mmol/L Potassium (3.5-5.1) mmol/L Chloride (98-107) mmol/L Carbon Dioxide (22-29) mmol/L Anion Gap (5-19) BUN (6-20) mg/dL Creatinine (0.7-1.2) mg/dL GFR Calculation (90-130) mL/min Glucose (65-115) mg/dL Calculated Osmolal ity (285-295) mOsm/k g Calcium (8.5-10.5) mg/dL Magnesium (1.7-2.3) mg/dL Total Bilirubin (0.15-1.2) mg/dL AST (0-40) U/L ALT (0-41) U/L Alkaline Phosphata se (40-130) IU/L Total Protein (6.6-8.7) g/dL Albumin (3.5-5.2) g/dL Globulin (1.3-4.6) g/dL Lipase (13-60) U/L Urine Color Dark yellow (Yellow) Urine Appearance Clear (CLEAR) Urine pH 5 (5-7) Ur Specific Gravit y 1.015 (1.005-1.030) Urine Protein Trace (Negative) Urine Glucose (UA) Norm (Normal) Urine Ketones Negative (Negative) Urine Blood 2+ H (Negative) Urine Nitrate Negative (Negative) Urine Bilirubin 1+ H (Negative) Urine Urobilinogen 4 H (Negative) mg/dL Ur Leukocyte Jennifer ase Negative (Negative) Urine RBC 5-10 H (0-2) /hpf Urine WBC 5-10 H (0-5) /hpf Ur Squamous Epith Cells 5-10 H (0-5) /hpf Amorphous Sediment Not Reportable Urine Bacteria 1+ H (NONE) /hpf Urine Mucus 2+ /hpf Urine Opiates Scre en Positive H (Negative) ng/mL Ur Barbiturates Sc reen Negative (Negative) ng/mL Ur Phencyclidine S crn Negative (Negative) ng/mL Ur Amphetamines Sc reen Negative (Negative) ng/mL U Benzodiazepines Scrn Positive H (Negative) ng/mL Urine Cocaine Scre en Negative (Negative) ng/mL U Marijuana (THC) Screen Positive H (Negative) ng/mL Monoscreen Negative (Negative) Discharge Plan Discharge Patient Disposition: Placed in Observation Admit Provider: Delgado Morris Clinical Impression: Cyclic vomiting syndrome, Dehydration Discharge Diet: Advance as tolerated and Full LIquid Discharge Activity: Resume usual activity Coding Level of Care Code ED Director Industrial Relations for Chg 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 Documented by User: Hemanth Wick MD 03/21/21 19:20 HPI - Nausea/Vomiting/Diarrhea General: Chief complaint: Nausea/Vomiting/Diarrhea Stated complaint: VOMITING Time Seen by Provider: 03/20/21 07:55 PFSH ED PFSH: Medical History (Updated 03/21/21 @ 11:58 by Samson Ling MD) Anxiety and depression Atherosclerotic heart disease of [place] coronary artery without angina pectoris Bladder wall thickening Cervical spondylosis Chronic migraine Chronic pancreatitis Chronic shortness of breath COPD (chronic obstructive pulmonary disease) Diverticulosis Essential (primary) hypertension GERD (gastroesophageal reflux disease) H. pylori infection Heart attack Hx of coronary angiogram Mixed hyperlipidemia Osteoarthritis Radiculopathy, lumbar region Seizure disorder SOB (shortness of breath) Tobacco dependency Torsion of appendix testis Urethral stricture Surgical History H/O chest tube placement H/O left knee surgery H/O neck surgery H/O removal of testicle H/O right knee surgery History of appendectomy History of cholecystectomy Stented coronary artery Family History Brother Parkinson disease Cancer Family/Other Cancer Other CAD (coronary artery disease) Social History (Updated 03/20/21 @ 14:27 by Delgado Morris MD) Smoking and tobacco status: current every day smoker cigarettes [ Other cigarette details: Had quit but today picked up again ] Quit status (tobacco): has quit using tobacco Year quit tobacco: 2020 - 1PPD x 35 Years Smoking risk assessment/counseling performed?: Yes Alcohol intake: former Year of sobriety/quit date alcohol: 2009 Lives independently: Yes Household members: significant other Current occupational status: disabled History of recent travel: No Current gender identity: Male Course Vital Signs: Vital signs: Vital Signs Temperature 98.3 F 03/21/21 17:43 Pulse Rate 66 03/21/21 17:43 Respiratory Rate 15 03/21/21 17:43 Blood Pressure 112/68 03/21/21 17:43 Pulse Oximetry 97 03/21/21 17:43 MDM - Nausea/Vomiting/Diarrhea MDM Narrative: Medical decision making narrative: I discussed the patient in case with JOSE Herrera. I have reviewed the documentation. In summary 50-year-old gentleman with history of similar. Intractable nausea and vomiting despite treatment. Based on inability to tolerate oral intake patient requires admission for further management of symptoms. Hemanth Wick MD Emergency Medicine Lab Data: Labs: Lab Results 03/20/21 03/20/21 03/20/21 Range/Units 08:35 08:35 08:35 WBC 11.7 H (4.0-10.0) 10^3/ uL RBC 5.01 (4.1-5.3) 10^6/u L Hgb 16.7 H (11.7-16.6) g/dL Hct 46.4 (42.0-52.0) % MCV 92.6 (80-94) fl MCH 33.3 (28.0-34.0) pg MCHC 36.0 (30.0-36.0) g/dL RDW 12.0 L (12.1-15.1) % Plt Count 331 (130-400) 10^3/c mm MPV 8.7 (7.4-10.4) fL Neut % (Auto) 79.2 % Lymph % (Auto) 10.7 % Merrick % (Auto) 9.3 % Eos % (Auto) 0.1 % Baso % (Auto) 0.4 % Neut # (Auto) 9.30 H (1.8-7.7) 10^3/u L Lymph # (Auto) 1.3 (0.8-4.8) 10^3/u L Merrick # (Auto) 1.1 H (0.2-0.9) 10^3/u L Eos # (Auto) 0.0 (0.0-0.8) 10^3/u L Baso # (Auto) 0.1 (0.0-0.1) 10^3/u L Nucleated RBC % (a uto) 0 % Nucleated RBCs # 0.0 /100WBC Sodium 128 L (136-145) mmol/L Potassium 3.3 L (3.5-5.1) mmol/L Chloride 87 L (98-107) mmol/L Carbon Dioxide 21 L (22-29) mmol/L Anion Gap 23.3 H (5-19) BUN 35 H (6-20) mg/dL Creatinine 1.3 H (0.7-1.2) mg/dL GFR Calculation 58.7 L (90-130) mL/min Glucose 149 H (65-115) mg/dL Calculated Osmolal ity 277 L (285-295) mOsm/k g Calcium 10.1 (8.5-10.5) mg/dL Magnesium 1.6 L (1.7-2.3) mg/dL Total Bilirubin 2.0 H (0.15-1.2) mg/dL AST 28 (0-40) U/L ALT 21 (0-41) U/L Alkaline Phosphata se 97 (40-130) IU/L Total Protein 8.1 (6.6-8.7) g/dL Albumin 4.5 (3.5-5.2) g/dL Globulin 3.6 (1.3-4.6) g/dL Lipase 29 (13-60) U/L Urine Color (Yellow) Urine Appearance (CLEAR) Urine pH (5-7) Ur Specific Gravit y (1.005-1.030) Urine Protein (Negative) Urine Glucose (UA) (Normal) Urine Ketones (Negative) Urine Blood (Negative) Urine Nitrate (Negative) Urine Bilirubin (Negative) Urine Urobilinogen (Negative) mg/dL Ur Leukocyte Jennifer ase (Negative) Urine RBC (0-2) /hpf Urine WBC (0-5) /hpf Ur Squamous Epith Cells (0-5) /hpf Amorphous Sediment Urine Bacteria (NONE) /hpf Urine Mucus /hpf Urine Opiates Scre en (Negative) ng/mL Ur Barbiturates Sc reen (Negative) ng/mL Ur Phencyclidine S crn (Negative) ng/mL Ur Amphetamines Sc reen (Negative) ng/mL U Benzodiazepines Scrn (Negative) ng/mL Urine Cocaine Scre en (Negative) ng/mL U Marijuana (THC) Screen (Negative) ng/mL Monoscreen (Negative) 03/20/21 03/20/21 03/20/21 Range/Units 08:35 10:10 10:10 WBC (4.0-10.0) 10^3/ uL RBC (4.1-5.3) 10^6/u L Hgb (11.7-16.6) g/dL Hct (42.0-52.0) % MCV (80-94) fl MCH (28.0-34.0) pg MCHC (30.0-36.0) g/dL RDW (12.1-15.1) % Plt Count (130-400) 10^3/c mm MPV (7.4-10.4) fL Neut % (Auto) % Lymph % (Auto) % Merrick % (Auto) % Eos % (Auto) % Baso % (Auto) % Neut # (Auto) (1.8-7.7) 10^3/u L Lymph # (Auto) (0.8-4.8) 10^3/u L Merrick # (Auto) (0.2-0.9) 10^3/u L Eos # (Auto) (0.0-0.8) 10^3/u L Baso # (Auto) (0.0-0.1) 10^3/u L Nucleated RBC % (a uto) % Nucleated RBCs # /100WBC Sodium (136-145) mmol/L Potassium (3.5-5.1) mmol/L Chloride (98-107) mmol/L Carbon Dioxide (22-29) mmol/L Anion Gap (5-19) BUN (6-20) mg/dL Creatinine (0.7-1.2) mg/dL GFR Calculation (90-130) mL/min Glucose (65-115) mg/dL Calculated Osmolal ity (285-295) mOsm/k g Calcium (8.5-10.5) mg/dL Magnesium (1.7-2.3) mg/dL Total Bilirubin (0.15-1.2) mg/dL AST (0-40) U/L ALT (0-41) U/L Alkaline Phosphata se (40-130) IU/L Total Protein (6.6-8.7) g/dL Albumin (3.5-5.2) g/dL Globulin (1.3-4.6) g/dL Lipase (13-60) U/L Urine Color Dark yellow (Yellow) Urine Appearance Clear (CLEAR) Urine pH 5 (5-7) Ur Specific Gravit y 1.015 (1.005-1.030) Urine Protein Trace (Negative) Urine Glucose (UA) Norm (Normal) Urine Ketones Negative (Negative) Urine Blood 2+ H (Negative) Urine Nitrate Negative (Negative) Urine Bilirubin 1+ H (Negative) Urine Urobilinogen 4 H (Negative) mg/dL Ur Leukocyte Jennifer ase Negative (Negative) Urine RBC 5-10 H (0-2) /hpf Urine WBC 5-10 H (0-5) /hpf Ur Squamous Epith Cells 5-10 H (0-5) /hpf Amorphous Sediment Not Reportable Urine Bacteria 1+ H (NONE) /hpf Urine Mucus 2+ /hpf Urine Opiates Scre en Positive H (Negative) ng/mL Ur Barbiturates Sc reen Negative (Negative) ng/mL Ur Phencyclidine S crn Negative (Negative) ng/mL Ur Amphetamines Sc reen Negative (Negative) ng/mL U Benzodiazepines Scrn Positive H (Negative) ng/mL Urine Cocaine Scre en Negative (Negative) ng/mL U Marijuana (THC) Screen Positive H (Negative) ng/mL Monoscreen Negative (Negative) Discharge Plan Discharge Patient Disposition: Placed in Observation Admit Provider: Delgado Morris Clinical Impression: Cyclic vomiting syndrome, Dehydration Discharge Diet: Advance as tolerated and Full LIquid Discharge Activity: Resume usual activity Coding Level of Care Code ED Director Industrial Relations for Shayyg 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
[2021-03-20] MEDS: sodium chloride 0.9% 1,000 ML 999 ML IV ×2 (08:15→10:17)
[2021-03-20] MEDS: ondansetron 2 mg/ML SDV 2 mL 4 MG IVP ×3 (08:15→21:55)
[2021-03-20 08:46] LABS: Basophils # 0.1 10^3/uL (0.0-0.1); Basophils % 0.4 %; Eosinophils % 0.1 %; Hematocrit 46.4 % (42.0-52.0); Hemoglobin 16.7 g/dL (11.7-16.6); Lymphocytes # 1.3 10^3/uL (0.8-4.8); Lymphocytes % 10.7 %; Mean Corpuscular Hemoglobin 33.3 pg (28.0-34.0); Mean Corpuscular Volume 92.6 fl (80-94); Mean Platelet Volume 8.7 fL (7.4-10.4); Monocytes # 1.1 10^3/uL (0.2-0.9); Monocytes % 9.3 %; Neutrophils % 79.2 %; Nucleated Red Blood Cells % 0 %; Platelet Count 331 10^3/cmm (130-400); Red Blood Count 5.01 10^6/uL (4.1-5.3); White Blood Count 11.7 10^3/uL (4.0-10.0)
[2021-03-20 09:02] LABS: Alanine Aminotransferase 21 U/L (0-41); Albumin Level 4.5 g/dL (3.5-5.2); Alkaline Phosphatase 97 IU/L (40-130); Anion Gap 23.3 (5-19); Aspartate Amino Transferase 28 U/L (0-40); Blood Urea Nitrogen 35 mg/dL (6-20); Calcium 10.1 mg/dL (8.5-10.5); Carbon Dioxide 21 mmol/L (22-29); Chloride 87 mmol/L (98-107); Globulin 3.6 g/dL (1.3-4.6); Glomerular Filtration Rate 58.7 mL/min (90-130); Glucose 149 mg/dL (65-115); Lipase 29 U/L (13-60); Osmolality Calculated 277 mOsm/kg (285-295); Potassium 3.3 mmol/L (3.5-5.1); Sodium 128 mmol/L (136-145); Total Protein 8.1 g/dL (6.6-8.7)
[2021-03-20] MEDS: potassium chloride ER 20 mEq Tablet 40 MEQ PO (09:27)
[2021-03-20] MEDS: prochlorperazine 10 mg Tablet PO (10:49)
[2021-03-20 11:28] LABS: Magnesium 1.6 mg/dL (1.7-2.3)
[2021-03-20 11:42] LABS: Amphetamines Screen Urine Negative (Negative); Barbiturates Screen Urine Negative (Negative); Benzodiazepines Screen Urine Positive (Negative); Cocaine Screen Urine Negative (Negative); Opiate Screen Urine Positive (Negative); PCP Screen Urine Negative (Negative); THC Screen Urine Positive (Negative)
[2021-03-20 11:43] LABS: Add Urine Microscopic? YES; Bilirubin Urine 1+ (Negative); Blood Urine 2+ (Negative); Glucose Urine UA Norm (Normal); Ketones Urine Negative (Negative); Leukocyte Esterase Urine Negative (Negative); Nitrate Urine Negative (Negative); Protein Urine Trace (Negative); Specific Gravity, Urine 1.015 (1.005-1.030); Urine Appearance Clear (CLEAR); Urine Color Dark Yellow (Yellow); Urobilinogen Urine 4 mg/dL (Negative); pH Urine 5 (5-7)
[2021-03-20 11:44] LABS: Add Urine Culture? No; Bacteria Urine 1+ /hpf; Mucus Urine 2+ /hpf
[2021-03-20] MEDS: fentaNYL 50 mcg/mL INJ 2mL IVP (12:11)
--- NOTE | 2021-03-20 14:03 | PM.HP ---
Providers/Chief Complaint Admitting Physician: Delgado Morris Primary Care Provider: AWA Caro Chief Complaint: COVID +/VOMITING History of Present Illness Pleasant 50-year-old gentleman currently presenting with symptoms of nausea, vomiting over the past week, inability to keep down food, drink or medications, with history of pancreatitis, previously on Creon, Klonopin, was admitted with nausea, vomiting, abdominal pain here on 02/26, state until 03/01. During that hospitalization lipase was found normal. Noted to be hyponatremic, sodium 119. Dehydrated. With leukocytosis. Also found to have COVID-19 moderate infection, with risk factors for severe, but declined monoclonal antibody treatment. Nausea vomiting improved, sodium improved up to 127, received other electrolyte replacement, and he preferred to discharge rather than continue further care. Was instructed to discontinue Celebrex. Due to possible UTI treated with short course of Levaquin. Referred for follow-up with urology to exclude malignancy or other causes of thickening of urinary bladder. He had seen urology, but due to nausea, vomiting, initially planned cystoscopy was deferred. After hospitalization here had a brief hospitalization at [facility] due to nausea and vomiting. He states he has not been taking any Celebrex recently, but also has not been taking his other medications due to inability to keep them down. He has not had very many bowel movements. Denies diarrhea, with last bowel movement being this morning. Last several days reports decreased urination. He has not been able to take PPI. Denies drinking alcohol. Reports medical marijuana use, states has not smoked any in the last 3 to 4 days. Currently in ER nauseated, with mild leukocytosis, sore throat, afebrile, with initial tachycardia 107, but improved with 2 l fluid bolus. With noted hyponatremia 128, hypokalemia 3.3, hypomagnesemia 1.6, acute kidney injury, creatinine 1.3, T bili elevation at 2, normal other liver parameters. Lipase normal. UA with 5-10 RBC, 5-10 WBC, 5-10 squamous epithelial cells, 1+ bacteria. Reports left side backslash flank pain radiating around to the front. Review of Systems Const: Reports: malaise; Denies: fever(s), chills or body aches Eyes: Denies: change in vision or eye redness ENMT: Denies: throat pain, oral sores or ear or mastoid pain Card: Denies: chest pain, edema, pre-syncope or dyspnea on exertion Resp: Denies: dyspnea, productive cough, change in phlegm color or hemoptysis GI: Reports: nausea and vomiting; Denies: abdominal pain, diarrhea, constipation, hematochezia or melena : Reports: flank pain and oliguria; Denies: difficulty urinating, urinary frequency or hematuria Musc: Denies: back pain, joint swelling or joint redness Skin/Breast: Denies: rash, sores or new lesions Neuro: Denies: headache(s), numbness in extremities, weakness in extremities, dizziness, confusion or seizure-like activity Endo: Denies: polyuria or polydipsia Trevon/Lymph: Denies: easy bleeding or purpura All/Imm: Denies: urticaria, throat swelling or tongue swelling Medications/Allergies Home Medications Medication Instructions Recorded Confirmed Last Taken Type albuterol sulfate 90 mcg/actuation 2 puff INHALATION Q6H PRN 08/22/19 03/20/21 09/30/20 History aerosol inhaler aspirin 81 mg tablet,delayed 81 mg PO DAILY@09 08/22/19 03/20/21 03/18/21 History release atorvastatin 80 mg tablet 80 mg PO DAILY 08/22/19 03/20/21 03/18/21 History budesonide 0.5 mg/2 mL suspension 0.5 mg INHALATION PRN 08/22/19 03/20/21 07/30/20 History for nebulization buspirone 30 mg tablet 30 mg PO BID tab 08/22/19 03/20/21 03/18/21 History ipratropium 0.5 mg-albuterol 3 mg 3 ml INHALATION QID PRN 08/22/19 03/20/21 09/30/20 History (2.5 mg base)/3 mL nebulization soln isosorbide mononitrate 30 mg 30 mg PO DAILY 08/22/19 03/20/21 03/18/21 History tablet,extended release 24 hr nitroglycerin 0.4 mg sublingual 0.4 mg SUBLINGUAL Q5M PRN 08/22/19 03/20/21 Unknown History tablet tamsulosin 0.4 mg capsule 0.4 mg PO BEDTIME 08/22/19 03/20/21 03/18/21 History zonisamide 100 mg capsule 400 mg PO BEDTIME cap 08/22/19 03/20/21 03/18/21 History potassium chloride 10 mEq 20 meq PO DAILY 09/24/19 03/20/21 03/17/21 History tablet,extended release clonazepam 1 mg tablet 1 mg PO QID PRN tab 12/04/19 03/20/21 09/30/20 History ondansetron 4 mg PO Q6H PRN #14 tab 05/05/20 03/20/21 09/30/20 Rx citalopram 20 mg tablet 20 mg PO BEDTIME 05/27/20 03/20/21 03/18/21 History metoclopramide HCl [Reglan] 10 mg PO Q6H PRN #20 tab 10/17/20 03/20/21 Unknown Rx clopidogrel 75 mg PO DAILY@09 10/19/20 03/20/21 03/18/21 History metoprolol tartrate 12.5 mg PO BID 10/19/20 03/20/21 03/18/21 History pantoprazole 40 mg PO BIDWM #60 tab 03/01/21 03/20/21 03/18/21 Rx quetiapine 25 mg PO BEDTIME #0 tab 03/01/21 03/20/21 03/18/21 Rx sodium chloride 2 g PO BID #120 tab 03/01/21 03/20/21 03/18/21 Rx Allergies Allergy/AdvReac Type Severity Reaction Status Date / Time meperidine [From Demerol] Allergy Severe ALGY-Hives Verified 03/20/21 08:03 Beef Containing Products Allergy ADR-Diarrhe Verified 03/20/21 08:03 a Pork/Porcine Containing Allergy ADR-Diarrhe Verified 03/20/21 08:03 Products a gabapentin AdvReac Severe ADR-Seizure Verified 03/20/21 08:03 morphine AdvReac Severe ALGY-Hives Verified 03/20/21 08:03 tramadol AdvReac Severe ADR-Seizure Verified 03/20/21 08:03 PFSH Acute PFSH: Medical History Anxiety and depression Atherosclerotic heart disease of [place] coronary artery without angina pectoris Bladder wall thickening Cervical spondylosis Chronic migraine Chronic pancreatitis Chronic shortness of breath COPD (chronic obstructive pulmonary disease) Diverticulosis Essential (primary) hypertension GERD (gastroesophageal reflux disease) Heart attack Hx of coronary angiogram Mixed hyperlipidemia Osteoarthritis Radiculopathy, lumbar region Seizure disorder SOB (shortness of breath) Tobacco dependency Torsion of appendix testis Urethral stricture Surgical History H/O chest tube placement H/O left knee surgery H/O neck surgery H/O removal of testicle H/O right knee surgery History of appendectomy History of cholecystectomy Stented coronary artery Family History Brother Parkinson disease Cancer Family/Other Cancer Other CAD (coronary artery disease) Social History (Updated 03/20/21 @ 14:27 by Delgado Morris MD) Smoking and tobacco status: current every day smoker cigarettes [ Other cigarette details: Had quit but today picked up again ] Quit status (tobacco): has quit using tobacco Year quit tobacco: 2019 - 1PPD x 35 Years Smoking risk assessment/counseling performed?: Yes Alcohol intake: former Year of sobriety/quit date alcohol: 2009 Lives independently: Yes Household members: significant other Current occupational status: disabled History of recent travel: No Current gender identity: Male Vitals/I&O/Wt Last Vital Signs Temp 98.2 F 03/20/21 07:58 Pulse 78 03/20/21 12:00 Resp 15 03/20/21 12:00 BP 97/55 03/20/21 12:00 Pulse Ox 95 03/20/21 12:00 03/19/21 03/20/21 03/20/21 22:59 06:59 14:59 Intake Total 2051 Balance 2051 Weight last 48 hrs Weight 86.183 kg Physical Exam Const: COMMON NORMALS: no acute distress, patient oriented x3 and alert GENERAL APPEARANCE: cooperative; not comfortable (nausea) ORIENTATION/CONSCIOUSNESS: Yes awake HENMT: COMMON NORMALS: oropharynx normal THROAT: posterior oropharynx abnormal erythema; no edema and no exudates Neck/C-Spine: COMMON NORMALS: no JVD Resp: COMMON NORMALS: normal respiratory effort and clear to auscultation bilaterally AUSCULTATION: clear to auscultation bilaterally Cardio: COMMON NORMALS: no JVD, regular rhythm, S1 normal heart sound present, S2 normal heart sound present and No murmurs present (Cardio) RHYTHM: regular rhythm HEART SOUNDS: S1 normal heart sound present and S2 normal heart sound present GI: COMMON NORMALS: Normal to inspection, nondistended, normoactive bowel sounds present, Soft to palpation and non-tender PALPATION: Yes Soft to palpation : COMMON NORMALS: Yes no CVA tenderness (L) Extremity: COMMON NORMALS: no joint enlargement and no pedal edema Neuro: COMMON NORMALS: patient oriented x3 and moves all extremities Skin: COMMON NORMALS: no rashes or lesions noted GENERAL SKIN EXAM: no rashes or lesions noted Data : 03/20/21 08:35 03/20/21 08:35 A&P Assessment and plan (1) Intractable nausea and vomiting: Previously with history of esophagitis, gastritis. Has been unable to take his PPI. Will transition therapy to IV. Inability to take in food, drink, medications. Transition to IV as possible. Provide IV hydration. Zofran as needed. Previously instructed to discontinue NSAIDs. Does not remember if he had specifically stopped them, but has not for sure can take anything recently in the past week. Otherwise discussed with him also concern for cyclic vomiting syndrome, he does smoke marijuana, says last time was 3-4 days ago. Encouraged him to abstain for now until he is improving, and in case of recurrence of symptoms to discontinue use. With thickened urinary bladder, additional instigation deferred by urology, recurrent/persistent nausea, assess MRI brain with noncontrast study due to GIULIA. Status: Acute (2) Dehydration: IVF Status: Acute (3) GIULIA (acute kidney injury): Received fluid challenge. Monitor I&O. With left flank pain, hematuria, assess renal stone CT. Was previously instructed to discontinue NSAIDs. Status: Acute (4) Hyponatremia: Suspected hypovolemic hyponatremia. Received fluid challenge. Recheck sodium level. Status: Acute (5) Hypokalemia: Received replenishment, recheck. Status: Acute (6) Hypomagnesemia: Received mag. Recheck. Status: Acute (7) Total bilirubin, elevated: Suspect secondary to dehydration. History of cholecystectomy previously. Denies right upper quadrant pain. Unremarkable exam. Other liver parameters not elevated. Recheck level. Follow-up renal CT. Status: Acute (8) Abnormal finding on urinalysis: With known hematuria, currently microscopic hematuria 5-10 RBC, also mild pyuria 5-10 WBC, 5-10 squamous epithelial cells. Does not specifically have urinary symptoms, although does have left flank pain. Follow-up urine culture. Also CT kidney stone. Status: Acute (9) Bladder wall thickening: Once and better condition, resume follow-up with Dr. San and plans for cystoscopy. Status: Acute (10) Medical marijuana use: Discussed with him to abstain from use for now and to be mindful of possible cyclic vomiting syndrome. Status: Acute (11) Pharyngitis: Noted pharyngeal erythema, no purulent exudates. Suspect secondary to chemical irritation from gastric juice. Assess rapid strep. Monospot. Status: Acute Additional A&P Information Recent COVID-19 infection: Found on 03/01. Had moderate course at that time. Has not had any respiratory symptoms. No other symptoms of currently active disease. History of chronic pancreatitis: I do not see that he is currently on pancrelipase supplementation, although denies diarrhea. Lipase is normal. No epigastric pain. Consider resuming pancrelipase supplementation. Other chronic medical problems noted including Smoking addiction: He states had previously quit, but today picked up again and smoked 1-2 cigarettes after his girlfriend bought him a pack. Discussed with him regarding smoking cessation. He verbalized will not smoke anymore. COPD GERD CAD Seizure disorder Radiculopathy Anxiety, depression, other Attestations Medical Necessity Statement*: Place in observation for assessment management of nonresolving nausea, vomiting, complicated with dehydration, acute kidney injury, electrolyte abnormalities, with inability to tolerate oral intake of food, water or medications. 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
[2021-03-20 14:41] LABS: Monoscreen Negative (Negative)
--- NOTE | 2021-03-20 15:28 | CTR_ITS ---
PROCEDURE INFORMATION: Exam: CT Abdomen And Pelvis Without Contrast Exam date and time: 03/20/2021 3:28 PM Age: 50 years old Clinical indication: Abdominal pain; Left; Prior surgery; Surgery date: 6+ months; Surgery type: Gb, appy; Patient HX: C/O L flank pain; Additional info: Hematuria, lamont, L flank pain, n/v TECHNIQUE: Imaging protocol: Computed tomography of the abdomen and pelvis without contrast. Radiation optimization: All CT scans at this facility use at least one of these dose optimization techniques: automated exposure control; mA and/or kV adjustment per patient size (includes targeted exams where dose is matched to clinical indication); or iterative reconstruction. COMPARISON: CT abdomen pelvis w con* [id number] 02/26/2021 1:37 PM RADIATION DOSE METRICS: Total DLP (mGy-cm): 1183.73 FINDINGS: Liver: Normal. No mass. Gallbladder and bile ducts: Cholecystectomy. Nondilated biliary system. Pancreas: Normal. No ductal dilation. Spleen: Normal. No splenomegaly. Adrenal glands: Normal. No mass. Kidneys and ureters: Simple bilateral renal cortical cysts are stable from comparison. Negative for perinephric inflammation. Negative for hydronephrosis. Possibly a 1 mm nonobstructing left renal lower pole stone. Stomach and bowel: Unremarkable. No obstruction. No mucosal thickening. Appendix: Appendectomy. Intraperitoneal space: Unremarkable. No free air. No significant fluid collection. Vasculature: Scattered plaques of the abdominal aorta without aneurysm. Lymph nodes: Unremarkable. No enlarged lymph nodes. Urinary bladder: Unremarkable as visualized. Reproductive: Unremarkable as visualized. Bones/joints: Unremarkable. No acute fracture. Soft tissues: Unremarkable. CT/CT kidney stone [id number] IMPRESSION: 1. Negative for acute abdominopelvic pathology. 2. No significant change from comparison. Radiation Dose CTDIVOL = (mGy): DLP = 1183.73 (mGy-cm)
[2021-03-20] MEDS: pantoprazole 40 mg SDV IVP (16:35)
[2021-03-20] MEDS: lactated ringers 1,000 ML 75 ML IV (16:36)
[2021-03-20] MEDS: HYDROcodone-acetaminophen 10-325 mg Tablet 1 TAB PO (17:06)
[2021-03-20 18:16] LABS: Rapid Strep A Test Negative (Negative)
--- NOTE | 2021-03-20 19:20 | PC.NURSE ---
Report to [facility] at this time.
[2021-03-20] MEDS: zonisamide 100 MG Capsule 400 MG PO (20:17)
[2021-03-20] MEDS: metoclopramide 10 mg Tablet PO (20:21)
[2021-03-21] MEDS: quetiapine 25 mg Tablet 12.5 MG PO (00:54)
[2021-03-21] MEDS: CLONazepam 1 mg Tablet 0.5 MG PO (00:54)
[2021-03-21] MEDS: pantoprazole 40 mg SDV IVP (03:38)
[2021-03-21 04:00] VITALS: BP 146/82; PULSE 71; RESP 18; TEMP 36.8; O2SAT 99
[2021-03-21 06:28] LABS: Basophils % 0.4 %; Eosinophils % 0.7 %; Hematocrit 36.4 % (42.0-52.0); Hemoglobin 12.7 g/dL (11.7-16.6); Lymphocytes % 18.6 %; Mean Corpuscular HGB Conc 34.9 g/dL (30.0-36.0); Mean Corpuscular Hemoglobin 33.6 pg (28.0-34.0); Mean Corpuscular Volume 96.3 fl (80-94); Mean Platelet Volume 8.6 fL (7.4-10.4); Monocytes # 0.6 10^3/uL (0.2-0.9); Neutrophils # 3.82 10^3/uL (1.8-7.7); Neutrophils % 68.9 %; Nucleated Red Blood Cells % 0 %; Platelet Count 197 10^3/cmm (130-400); Red Blood Count 3.78 10^6/uL (4.1-5.3); Red Cell Distribution Width 12.2 % (12.1-15.1); White Blood Count 5.5 10^3/uL (4.0-10.0)
[2021-03-21] MEDS: lactated ringers 1,000 ML 75 ML IV (06:40)
[2021-03-21 06:52] LABS: Alanine Aminotransferase 15 U/L (0-41); Albumin Level 3.4 g/dL (3.5-5.2); Alkaline Phosphatase 70 IU/L (40-130); Anion Gap 13.7 (5-19); Aspartate Amino Transferase 23 U/L (0-40); Blood Urea Nitrogen 19 mg/dL (6-20); Calcium 8.6 mg/dL (8.5-10.5); Carbon Dioxide 22 mmol/L (22-29); Chloride 98 mmol/L (98-107); Globulin 2.2 g/dL (1.3-4.6); Glomerular Filtration Rate 119.9 mL/min (90-130); Glucose 112 mg/dL (65-115); Magnesium 1.5 mg/dL (1.7-2.3); Osmolality Calculated 273 mOsm/kg (285-295); Potassium 3.7 mmol/L (3.5-5.1); Sodium 130 mmol/L (136-145); Total Bilirubin 1.5 mg/dL (0.15-1.2); Total Protein 5.6 g/dL (6.6-8.7)
[2021-03-21] MEDS: clopidogrel 75 mg Tablet PO (07:57)
[2021-03-21] MEDS: ondansetron 2 mg/ML SDV 2 mL 4 MG IVP (07:57)
[2021-03-21 08:10] VITALS: BP 138/84; PULSE 62; RESP 16; TEMP 36.6; O2SAT 100
[2021-03-21 08:12] VITALS: PULSE 68; RESP 16; O2SAT 98
[2021-03-21 11:46] VITALS: BP 111/78; PULSE 75; RESP 17; TEMP 37; O2SAT 99
--- NOTE | 2021-03-21 11:48 | PM.DCS ---
Discharge Providers Date of Admission: 03/20/21 12:43 Date of Discharge: March 21, 2021 Attending Provider at Admission: Delgado Morris Attending Provider at Discharge: Samson Ling MD Primary Care Provider: AWA Caro Diagnoses at Discharge Discharge Diagnosis (1) Intractable nausea and vomiting: Status: Acute (2) Dehydration: Status: Acute (3) GIULIA (acute kidney injury): Status: Acute (4) Hyponatremia: Status: Acute (5) Hypokalemia: Status: Acute (6) Hypomagnesemia: Status: Acute (7) Total bilirubin, elevated: Status: Acute (8) Abnormal finding on urinalysis: Status: Acute (9) Bladder wall thickening: Status: Acute (10) Medical marijuana use: Status: Acute (11) Pharyngitis: Status: Acute (12) H. pylori infection: Status: Acute Reason for Visit Reason for Visit: COVID +/VOMITING Hospital Course Hospital Course Pleasant 50-year-old gentleman currently presenting with symptoms of nausea, vomiting over the past week, inability to keep down food, drink or medications, with history of pancreatitis, previously on Creon, Klonopin, was admitted with nausea, vomiting, abdominal pain here on 02/26, state until 03/01. During that hospitalization lipase was found normal. Noted to be hyponatremic, sodium 119. Dehydrated. With leukocytosis. Also found to have COVID-19 moderate infection, with risk factors for severe, but declined monoclonal antibody treatment. Nausea vomiting improved, sodium improved up to 127, received other electrolyte replacement, and he preferred to discharge rather than continue further care. Was instructed to discontinue Celebrex. Due to possible UTI treated with short course of Levaquin. Referred for follow-up with urology to exclude malignancy or other causes of thickening of urinary bladder. He had seen urology, but due to nausea, vomiting, initially planned cystoscopy was deferred. After hospitalization here had a brief hospitalization at [facility] due to nausea and vomiting. He states he has not been taking any Celebrex recently, but also has not been taking his other medications due to inability to keep them down. He has not had very many bowel movements. Denies diarrhea, with last bowel movement being this morning. Last several days reports decreased urination. He has not been able to take PPI. Denies drinking alcohol. Reports medical marijuana use, states has not smoked any in the last 3 to 4 days. Patient also stated that he had an EGD 1 month ago at that time he was found to be H. pylori positive and was advised to take antibiotics for 10 days which she finished. He states even after the antibiotics her symptoms persisted. CT abdomen pelvis was done which was negative for any gallbladder/liver/pancreatic pathology. He is returned to the hospital for conservative management of persistent nausea and vomiting. He was started on IV fluids at which is acute kidney injury and multiple electrode abnormalities including hypomagnesemia and hypokalemia resolved. He was started on clear liquid diet and later advanced to full liquid diet which he tolerated well. Patient is discharged in hemodynamically stable condition with advice to take multiple small meals during the day and then advance gradually to GI soft and eventually to a regular diet within the next 2 weeks. He was started on levofloxacin based therapy for H. pylori for next 10 days. Patient verbalized understanding. He is advised to follow-up within the next 1 month for repeat EGD and to have urea breath test in 1 week after completion of antibiotic therapy. Physical Exam Const: COMMON NORMALS: no acute distress, patient oriented x3 and alert GENERAL APPEARANCE: cooperative; not comfortable (nausea) ORIENTATION/CONSCIOUSNESS: Yes awake HENMT: COMMON NORMALS: oropharynx normal THROAT: posterior oropharynx abnormal erythema; no edema and no exudates Neck/C-Spine: COMMON NORMALS: no JVD Resp: COMMON NORMALS: normal respiratory effort and clear to auscultation bilaterally AUSCULTATION: clear to auscultation bilaterally Cardio: COMMON NORMALS: no JVD, regular rhythm, S1 normal heart sound present, S2 normal heart sound present and No murmurs present (Cardio) RHYTHM: regular rhythm HEART SOUNDS: S1 normal heart sound present and S2 normal heart sound present GI: COMMON NORMALS: Normal to inspection, nondistended, normoactive bowel sounds present, Soft to palpation and non-tender PALPATION: Yes Soft to palpation : COMMON NORMALS: Yes no CVA tenderness (L) BLADDER/KIDNEY EXAM: Yes no CVA tenderness (L) Back/Pelvis: COMMON NORMALS: no CVA tenderness (L) Extremity: COMMON NORMALS: no joint enlargement and no pedal edema Neuro: COMMON NORMALS: patient oriented x3 and moves all extremities SENSORIUM/ORIENTATION: Yes alert Skin: COMMON NORMALS: no rashes or lesions noted GENERAL SKIN EXAM: no rashes or lesions noted Discharge Data Data Completed and Pending: Completed Studies During Hospitalization Category Date Time Status CT kidney stone [id number] Routine Cat Scan 03/20/21 15:28 Completed Pending at discharge Category Date Time Status Complete Blood Co unt w/Auto AM LABS Lab 03/22/21 04:00 Ordered Complete Blood Co unt w/Auto AM LABS Lab 03/23/21 04:00 Ordered Comprehensive Met abolic Panel AM LA BS Lab 03/22/21 04:00 Ordered Comprehensive Met abolic Panel AM LA BS Lab 03/23/21 04:00 Ordered Magnesium AM LABS Lab 03/22/21 04:00 Ordered Magnesium AM LABS Lab 03/23/21 04:00 Ordered Streptococcus Cul ture Group A Routi ne Lab 03/20/21 17:20 Received Urine Culture Sta t Lab 03/20/21 10:10 Results MR head wo con* [id number] Routine MRI 03/21/21 12:00 Stop Req MR head wo con* [id number] Routine MRI 03/21/21 18:15 Unverified Labs from last 24 hours 03/21/21 03/21/21 03/20/21 06:10 06:10 17:20 WBC 5.5 RBC 3.78 L Hgb 12.7 Hct 36.4 L MCV 96.3 H MCH 33.6 MCHC 34.9 RDW 12.2 Plt Count 197 D MPV 8.6 Neut % (Auto) 68.9 Lymph % (Auto) 18.6 [place] % (Auto) 11.0 Eos % (Auto) 0.7 Baso % (Auto) 0.4 Neut # (Auto) 3.82 Lymph # (Auto) 1.0 [place] # (Auto) 0.6 Eos # (Auto) 0.0 Baso # (Auto) 0.0 Nucleated RBC % (a uto) 0 Nucleated RBCs # 0.0 Sodium 130 L Potassium 3.7 Chloride 98 Carbon Dioxide 22 Anion Gap 13.7 BUN 19 Creatinine 0.7 GFR Calculation 119.9 Glucose 112 Calculated Osmolal ity 273 L Calcium 8.6 Magnesium 1.5 L Total Bilirubin 1.5 H AST 23 ALT 15 Alkaline Phosphata se 70 Total Protein 5.6 L D Albumin 3.4 L Globulin 2.2 Monoscreen Group A Strep Rapi d Negative 03/20/21 08:35 WBC RBC Hgb Hct MCV MCH MCHC RDW Plt Count MPV Neut % (Auto) Lymph % (Auto) [place] % (Auto) Eos % (Auto) Baso % (Auto) Neut # (Auto) Lymph # (Auto) [place] # (Auto) Eos # (Auto) Baso # (Auto) Nucleated RBC % (a uto) Nucleated RBCs # Sodium Potassium Chloride Carbon Dioxide Anion Gap BUN Creatinine GFR Calculation Glucose Calculated Osmolal ity Calcium Magnesium Total Bilirubin AST ALT Alkaline Phosphata se Total Protein Albumin Globulin Monoscreen Negative Group A Strep Rapi d Addt'l Data from Hospital Stay: Laboratory Results WBC 5.5 10^3/uL (4.0- 10.0) 03/21/21 06:10 RBC 3.78 10^6/uL (4.1 -5.3) L 03/21/21 06:10 Hgb 12.7 g/dL (11.7-1 6.6) 03/21/21 06:10 Hct 36.4 % (42.0-52.0 ) L 03/21/21 06:10 MCV 96.3 fl (80-94) H 03/21/21 06:10 MCH 33.6 pg (28.0-34. 0) 03/21/21 06:10 MCHC 34.9 g/dL (30.0-3 6.0) 03/21/21 06:10 RDW 12.2 % (12.1-15.1 ) 03/21/21 06:10 Plt Count 197 10^3/cmm (130 -400) D 03/21/21 06:10 MPV 8.6 fL (7.4-10.4) 03/21/21 06:10 Neut % (Auto) 68.9 % 03/21/21 06:10 Lymph % (Auto) 18.6 % 03/21/21 06:10 [place] % (Auto) 11.0 % 03/21/21 06:10 Eos % (Auto) 0.7 % 03/21/21 06:10 Baso % (Auto) 0.4 % 03/21/21 06:10 Neut # (Auto) 3.82 10^3/uL (1.8 -7.7) 03/21/21 06:10 Lymph # (Auto) 1.0 10^3/uL (0.8- 4.8) 03/21/21 06:10 [place] # (Auto) 0.6 10^3/uL (0.2- 0.9) 03/21/21 06:10 Eos # (Auto) 0.0 10^3/uL (0.0- 0.8) 03/21/21 06:10 Baso # (Auto) 0.0 10^3/uL (0.0- 0.1) 03/21/21 06:10 Nucleated RBC % (a uto) 0 % 03/21/21 06:10 Nucleated RBCs # 0.0 /100WBC 03/21/21 06:10 Sodium 130 mmol/L (136-1 45) L 03/21/21 06:10 Potassium 3.7 mmol/L (3.5-5 .1) 03/21/21 06:10 Chloride 98 mmol/L (98-107 ) 03/21/21 06:10 Carbon Dioxide 22 mmol/L (22-29) 03/21/21 06:10 Anion Gap 13.7 (5-19) 03/21/21 06:10 BUN 19 mg/dL (6-20) 03/21/21 06:10 Creatinine 0.7 mg/dL (0.7-1. 2) 03/21/21 06:10 GFR Calculation 119.9 mL/min (90- 130) 03/21/21 06:10 Glucose 112 mg/dL (65-115 ) 03/21/21 06:10 Calculated Osmolal ity 273 mOsm/kg (285- 295) L 03/21/21 06:10 Calcium 8.6 mg/dL (8.5-10 .5) 03/21/21 06:10 Magnesium 1.5 mg/dL (1.7-2. 3) L 03/21/21 06:10 Total Bilirubin 1.5 mg/dL (0.15-1 .2) H 03/21/21 06:10 AST 23 U/L (0-40) 03/21/21 06:10 ALT 15 U/L (0-41) 03/21/21 06:10 Alkaline Phosphata se 70 IU/L (40-130) 03/21/21 06:10 Total Protein 5.6 g/dL (6.6-8.7 ) L D 03/21/21 06:10 Albumin 3.4 g/dL (3.5-5.2 ) L 03/21/21 06:10 Globulin 2.2 g/dL (1.3-4.6 ) 03/21/21 06:10 Lipase 29 U/L (13-60) 03/20/21 08:35 Urine Color Dark yellow (Yel low) 03/20/21 10:10 Urine Appearance Clear (CLEAR) 03/20/21 10:10 Urine pH 5 (5-7) 03/20/21 10:10 Ur Specific Gravit y 1.015 (1.005-1.0 30) 03/20/21 10:10 Urine Protein Trace (Negative) 03/20/21 10:10 Urine Glucose (UA) Norm (Normal) 03/20/21 10:10 Urine Ketones Negative (Negati ve) 03/20/21 10:10 Urine Blood 2+ (Negative) H 03/20/21 10:10 Urine Nitrate Negative (Negati ve) 03/20/21 10:10 Urine Bilirubin 1+ (Negative) H 03/20/21 10:10 Urine Urobilinogen 4 mg/dL (Negative ) H 03/20/21 10:10 Ur Leukocyte Jennifer ase Negative (Negati ve) 03/20/21 10:10 Urine RBC 5-10 /hpf (0-2) H 03/20/21 10:10 Urine WBC 5-10 /hpf (0-5) H 03/20/21 10:10 Ur Squamous Epith Cells 5-10 /hpf (0-5) H 03/20/21 10:10 Amorphous Sediment Not Reportable 03/20/21 10:10 Urine Bacteria 1+ /hpf (NONE) H 03/20/21 10:10 Urine Mucus 2+ /hpf 03/20/21 10:10 Urine Opiates Scre en Positive ng/mL (N egative) H 03/20/21 10:10 Ur Barbiturates Sc reen Negative ng/mL (N egative) 03/20/21 10:10 Ur Phencyclidine S crn Negative ng/mL (N egative) 03/20/21 10:10 Ur Amphetamines Sc reen Negative ng/mL (N egative) 03/20/21 10:10 U Benzodiazepines Scrn Positive ng/mL (N egative) H 03/20/21 10:10 Urine Cocaine Scre en Negative ng/mL (N egative) 03/20/21 10:10 U Marijuana (THC) Screen Positive ng/mL (N egative) H 03/20/21 10:10 Monoscreen Negative (Negati ve) 03/20/21 08:35 Group A Strep Rapi d Negative (Negati ve) 03/20/21 17:20 Impressions Abdomen/Pelvis CT 03/20/21 15:28 IMPRESSION: 1. Negative for acute abdominopelvic pathology. 2. No significant change from comparison. Radiation Dose CTDIVOL = (mGy): DLP = 1183.73 (mGy-cm) Vitals: Last Vital Signs Temp 98.6 F 03/21/21 11:46 Pulse 75 03/21/21 11:46 Resp 17 03/21/21 11:46 BP 111/78 03/21/21 11:46 Pulse Ox 99 03/21/21 11:46 Discharge Plan Discharge Patient Disposition: Home Condition: Stable Prescriptions: New levofloxacin 500 mg tablet 500 mg PO Q24H 10 Days Qty: 10 RF: 0 amoxicillin 500 mg tablet 1,000 mg PO BID 10 Days Qty: 40 RF: 0 sucralfate [Carafate] 100 mg/mL suspension 1 g PO TID 28 Days Qty: 840 RF: 0 Continued buspirone 30 mg tablet 30 mg PO BID RF: 0 isosorbide mononitrate 30 mg tablet extended release 24 hr 30 mg PO DAILY RF: 0 atorvastatin 80 mg tablet 80 mg PO DAILY RF: 0 aspirin [Adult Aspirin Regimen] 81 mg tablet,delayed release (DR/EC) 81 mg PO DAILY@09 RF: 0 zonisamide 100 mg capsule 400 mg PO BEDTIME RF: 0 tamsulosin 0.4 mg capsule 0.4 mg PO BEDTIME RF: 0 nitroglycerin [Nitrostat] 0.4 mg tablet, sublingual 0.4 mg SUBLINGUAL Q5M PRN (Reason: Chest Pain) RF: 0 albuterol sulfate [ProAir HFA] 90 mcg/actuation HFA aerosol inhaler 2 puff INHALATION Q6H PRN (Reason: Shortness Of Breath) RF: 0 budesonide [Pulmicort] 0.5 mg/2 mL suspension for nebulization 0.5 mg INHALATION PRN RF: 0 ipratropium-albuterol 0.5 mg-3 mg(2.5 mg base)/3 mL solution for nebulization 3 ml INHALATION QID PRN (Reason: Shortness Of Breath) RF: 0 potassium chloride [Klor-Con 10] 10 mEq tablet extended release 20 meq PO DAILY RF: 0 clonazepam 1 mg tablet 1 mg PO QID PRN (Reason: Anxiety) RF: 0 citalopram 20 mg tablet 20 mg PO BEDTIME RF: 0 ondansetron 4 mg tablet,disintegrating 4 mg PO Q6H PRN (Reason: nausea and vomiting) Qty: 14 RF: 0 metoclopramide HCl [Reglan] 10 mg tablet 10 mg PO Q6H PRN (Reason: nausea and vomiting) Qty: 20 RF: 0 metoprolol tartrate 25 mg Tablet 12.5 mg PO BID RF: 0 clopidogrel 75 mg tablet 75 mg PO DAILY@09 RF: 0 quetiapine 50 mg tablet 25 mg PO BEDTIME Qty: 0 RF: 0 pantoprazole 40 mg tablet,delayed release (DR/EC) 40 mg PO BIDWM Qty: 60 RF: 0 Changed sodium chloride 1 gram Tablet 1 g PO BID Qty: 120 RF: 0 Discharge Orders: Discharge Order (Routine); Ordered 03/21/21 Ordered By: Samson Ling Referrals: Amanda Simon FNP [Primary Care Provider] - 2 weeks Elijah Bhatti MD [Physician] - 1 month Discharge Diet: Advance as tolerated and Full LIquid Discharge Activity: Resume usual activity Patient Instructions: Opioid Safety Activity Restrictions/Additional Instructions: Discontinue take a liquid diet for next follow-up. You should take multiple small meals a day. Advance gradually to GI soft diet and then eventually to a regular diet in the next 2 weeks. You should continue to take antibiotics for H. pylori infection for next 10 days. Once completion of the treatment she will have repeat EGD in 1 month. Discharge Attestations Time Spent in Discharge Care*: greater than 30 min Specific Discharge Activities: educating patient, discussing with pcp/other providers, discussing with renal case manager/social workers/dc planners, documenting/other paperwork and evaluating patient/reviewing data Status at Discharge: Cognitive status at discharge: cognitively intact, Behavioral status at discharge: cooperative, Functional status at discharge: independent ambulation Overall status at discharge: patient is back to baseline Quality Metrics Clinical Quality Measures During this hospital stay, did patient experience: None Coding Level of Care Code Acute Chg FW WI note Diagnoses Intractable nausea and vomiting R11.2 Dehydration E86.0 GIULIA (acute kidney injury) N17.9 Hyponatremia E87.1 Hypokalemia E87.6 Hypomagnesemia E83.42 Total bilirubin, elevated R17 Abnormal finding on urinalysis R82.90 Bladder wall thickening N32.89 Medical marijuana use Z79.899 Pharyngitis J02.9 H. pylori infection A04.8
--- NOTE | 2021-03-21 12:30 | MR_ITS ---
WS: [id number] MRI HEAD WITHOUT CONTRAST TECHNIQUE: Sagittal T1, T2 axial, T2 axial FLAIR, axial and coronal T1 images, axial susceptibility w eighted imaging, axial diffusion weighted images, and coronal T2 images were obtained. CLINICAL INFORMATION: persistent/recurrent N/V, urinanry bladder wall thickening COMPARISON: CT June 2019 FINDINGS: No evidence of restricted diffusion to suggest acute ischemia. Ventricular system and basal cisterns are patent. Mild small vessel changes. Mild to moderate parenchymal volume loss. Normal posterior fos sa. Normal vascular flow voids at the skull base. No extra-axial fluid collections. No evidence of ma ss or mass effect. No hemosiderin on susceptibly weighted images. Normal optic chiasm and pituitary i nfundibulum. Mild symmetric atrophy temporal lobes and hippocampal formations. MR/MR head wo con* [id number] IMPRESSION: 1. No evidence of restricted diffusion to suggest acute ischemia. 2. Mild small vessel changes with mild to moderate parenchymal volume loss. 3. No evidence of intracranial edema or mass effect to suggest metastatic dise ase. Gadolinium was not administered. 4. No hemosiderin on the susceptibly weighted images. 5. Mild symmetric atrophy temporal lobes and hippocampal formations.
--- NOTE | 2021-03-21 12:54 | PC.NURSE ---
Patient to MRI at this time.
[2021-03-21 16:45] VITALS: BP 112/68; PULSE 66; RESP 15; TEMP 36.8; O2SAT 97
[2021-03-21 17:43] VITALS: BP 112/68; PULSE 66; RESP 15; TEMP 36.8; O2SAT 97
--- NOTE | 2021-03-21 17:45 | PC.NURSE ---
IV removed intact. Patient tolerated well. Reviewed discharge with patient and significant other. Patient and significant other verbalized understanding of discharge instructions including diet, medications, and follow up appointments. Patient is A&Ox3. respirations even and non-labored on room air. Patient wheel chaired to private car.
--- NOTE | 2021-03-23 13:06 | PC.RESP ---
SMOKING CESSATION AND PULMONARY REHAB INFORMATION SENT TO PATIENT.
--- NOTE | 2021-03-24 15:17 | PC.SOCIAL ---
discharge follow up call made, patient taking medications as prescribed. has follow up appointments made. patient still not feeling great, nausea and vomiting have subsided. patient is able to tolerate soft diet.
== END 2021-03-21 17:20 | disposition home or self-care (01) ==
LOC: ER 12:57 → MEDSURG 13:37
PROVIDERS: Admitting Provider Internal Medicine; Emergency Provider Physician Assistant; PCP Nurse Practitioner Family; Visit Provider Student in an Organized Health Care Education/Training Program
DX: U07.1 COVID-19 (principal); R11.2 Nausea with vomiting, unspecified; E86.0 Dehydration; N17.9 Acute kidney failure, unspecified; E87.1 Hypo-osmolality and hyponatremia; E87.6 Hypokalemia; E83.42 Hypomagnesemia; R17 Unspecified jaundice; R82.90 Unspecified abnormal findings in urine; N32.89 Other specified disorders of bladder; Z79.899 Other long term (current) drug therapy; J02.9 Acute pharyngitis, unspecified; A04.8 Other specified bacterial intestinal infections; A07.1 Giardiasis [lambliasis]; Z79.82 Long term (current) use of aspirin; F41.9 Anxiety disorder, unspecified; F32.9 Major depressive disorder, single episode, unspecified; I25.110 Atherosclerotic heart disease of native coronary artery with unstable angina pectoris; J44.9 Chronic obstructive pulmonary disease, unspecified; I10 Essential (primary) hypertension; K21.9 Gastro-esophageal reflux disease without esophagitis; E78.2 Mixed hyperlipidemia; I25.2 Old myocardial infarction; F17.210 Nicotine dependence, cigarettes, uncomplicated
CPT/HCPCS: 36415; 70551; 74176; 80053; 80306; 81001; 83690; 83735; 85025; 86308; 87081; 87086; 87880; 96361; 96365; 96375; 99285; C9113; G0378; J2405; J3010; J3475; J7030; J8597; Q0164

== ENCOUNTER 2021-03-25 16:39 | Emergency (ER) | payer MEDICAID, SELFPAY ==
[2021-03-25 16:49] VITALS: BP 111/59; PULSE 93; RESP 18; TEMP 37; O2SAT 97; BMI 29.2
--- NOTE | 2021-03-25 17:01 | ECG_ITS ---
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 Measurements Intervals [place] Rate: 90 P: 85 [place]: 157 QRS: 101 QRSD: 89 T: 55 QT: 348 QTc: 427 Interpretive Statements SINUS RHYTHM INDETERMINATE AXIS MODERATE ST DEPRESSION [0.05+ mV ST DEPRESSION] Compared to ECG 10/19/2020 08:18:52 Indeterminate axis now present ST (T wave) deviation now present Myocardial infarct finding no longer present T-wave abnormality no longer present Possible ischemia no longer present Electronically Signed On 03-25-2021 18:56:56 CDT by Can Callejas M.D. [id number] f
--- NOTE | 2021-03-25 22:12 | PC.NURSE ---
DNAP x1
== END 2021-03-25 22:31 | disposition left against medical advice (07) ==
PROVIDERS: Emergency Provider Emergency Medicine; PCP Nurse Practitioner Family
DX: Z53.21 Procedure and treatment not carried out due to patient leaving prior to being seen by health care provider (principal)
CPT/HCPCS: 93005

== ENCOUNTER 2021-03-30 09:19 | Emergency (ER) | payer MEDICAID, SELFPAY ==
[2021-03-30 09:31] VITALS: BP 93/63; PULSE 77; RESP 19; TEMP 36.4; O2SAT 97
[2021-03-30 09:37] VITALS: BP 106/57; PULSE 74; RESP 17; TEMP 36.4; O2SAT 99
--- NOTE | 2021-03-30 09:46 | ECG_ITS ---
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 Measurements Intervals [place] Rate: 68 P: 73 OR: 149 QRS: 96 QRSD: 92 T: 125 QT: 379 QTc: 404 Interpretive Statements SINUS RHYTHM BORDERLINE RIGHT AXIS DEVIATION [QRS AXIS > 90] ST DEVIATION AND MODERATE T-WAVE ABNORMALITY, CONSIDER ANTEROLATERAL ISCHEMIA [-0.1+ mV T-WAVE IN V3-V6] Compared to ECG 03/25/2021 17:05:10 T-wave abnormality now present Possible ischemia now present Indeterminate axis no longer present ST (T wave) deviation no longer present Electronically Signed On 03-30-2021 19:36:47 CDT by Placido Garza M.D. [id number]
--- NOTE | 2021-03-30 09:55 | XR_ITS ---
WS: [id number] Portable AP upright chest, 03/30/2021 Clinical Data: recent chest pain Comparison: Portable chest, 10/19/2020. Findings: No nodules, masses or effusions are seen. The heart is normal. The pulmonary vascularity is not increased. No pneumonia or pneumothorax is seen. The patient's had an anterior cervical disc fus ion. There is a bony fusion between the coracoid and undersurface of the left clavicle probably from an old injury. XR/XR chest 1V portable [id number] Impression: Negative chest.
--- NOTE | 2021-03-30 09:57 | ED_ITS ---
HPI - General Adult General: Chief complaint: Abdominal Pain Stated complaint: upset stomach, N/D Time Seen by Provider: 03/30/21 09:28 History of Present Illness: HPI narrative: Patient is a 50-year-old male with a history of CAD s/p stent x 1 who was diagnosed with Covid on February 27, 2021 who has since then has had worsening diarrhea. Patient says that this week he has had significant liquid stools and have not been able to hold down his medicines. Patient says he has diffuse abdominal pain every time he takes his medicine and he has had multiple bouts of diarrhea throughout the day. Patient says that he has not he had decreased p.o. intake. Of note, 2 days ago patient came to the emergency room for evaluation of of chest pain. At that point time, patient left the hospital prior to being screened because of the prolonged wait. Patient is currently chest pain-free, denies any shortness of breath, fever/chills, abdominal complaints. In addition, patient was noted to have dark stool x2 episodes in the last 2 days. Denies any bright red blood per rectum. Onset:February 27, 2021 Duration:ongoing Location:home Severity:mild/moderate Review of Systems Narrative: Constitutional: No fever, no chills. HEENT: No vision changes CV: No chest pain, no palpitations PULM: no cough, no dyspnea. GI: No abdominal pain, +N/+V/+D. +dark stools x 2 episodes : No dysuria MSKEL: No muscle pain SKIN: No new rashes, no lesions. NEURO: No headache, no focal weakness. HEME: No visible bruises PSYCH: Normal mood PFS ED PFSH: Medical History (Updated 03/30/21 @ 11:12 by Justin Wilson MD) Abnormal finding on urinalysis Anxiety and depression Atherosclerotic heart disease of [place] coronary artery without angina pectoris Bladder wall thickening Cervical spondylosis Chronic migraine Chronic pancreatitis Chronic shortness of breath COPD (chronic obstructive pulmonary disease) Diverticulosis Essential (primary) hypertension GERD (gastroesophageal reflux disease) H. pylori infection Heart attack Hx of coronary angiogram Medical marijuana use Mixed hyperlipidemia Osteoarthritis Pharyngitis Radiculopathy, lumbar region Seizure disorder SOB (shortness of breath) Tobacco dependency Torsion of appendix testis Total bilirubin, elevated Urethral stricture Surgical History H/O chest tube placement H/O left knee surgery H/O neck surgery H/O removal of testicle H/O right knee surgery History of appendectomy History of cholecystectomy Stented coronary artery Family History Brother Parkinson disease Cancer Family/Other Cancer Other CAD (coronary artery disease) Social History (Updated 03/20/21 @ 14:27 by Delgado Morris MD) Smoking and tobacco status: current every day smoker cigarettes [ Other cigarette details: Had quit but today picked up again ] Quit status (tobacco): has quit using tobacco Year quit tobacco: 2019 - 1PPD x 35 Years Smoking risk assessment/counseling performed?: Yes Alcohol intake: former Year of sobriety/quit date alcohol: 2009 Lives independently: Yes Household members: significant other Current occupational status: disabled History of recent travel: No Current gender identity: Male Physical Exam Narrative: EXAM NARRATIVE: Head: Atraumatic Eyes: PERRL, conjunctiva without injection ENT: Mucous membrane moist NECK: Supple, ROM intact LUNGS: LCTAB, no crackles/rhonchi CV: RRR ABDOMEN: Soft, nontender in all quadrants EXTREMITY: Normal ROM SKIN: No rash or erythema NEURO: Awake and alert, no focal motor deficits PSYCH: Normal mood and affect RECTAL: +Hemoocult negative brown stool Course Vital Signs: Vital signs: Vital Signs Temperature 97.5 F L 03/30/21 09:37 Pulse Rate 75 03/30/21 10:46 Respiratory Rate 17 03/30/21 10:46 Blood Pressure 108/77 03/30/21 12:26 Pulse Oximetry 100 03/30/21 10:46 MDM - General Adult MDM Narrative: Medical decision making narrative: Patient is a 50-year-old male with a history of CAD s/p stent x1 who presents the emergency room for worsening diarrhea, nausea/vomiting and decreased p.o. intake. Patient reports that he is no longer able to take his medicines including ones for his heart. Lab work-up showed white count 6.5. Sodium of 134, K of 2.9. Patient received IVF, Zofran in the emergency room patient is now able to tolerate p.o. No episodes of diarrhea in the ED. Continues to have reassuring vital signs. At the present time, I do not suspect any acute emergent pathology. Patient had an episode of chest pain 2 to 3 days ago. Troponin within normal limit, EKG showed diffuse ST depression consistent with hypokalemia. K of 2.9, will supplement with 40mEq of potassium x 2 PO. Chest x-ray is unchanged from prior. Patient reports dark stools however on rectal exam is negative for melena or Hemoccult stool. Hemoglobin is noted to be 11.8 similar to prior presentation on 03/21. I do not suspect that patient is having ACS-like symptoms given duration of symptom and normal troponin. I have instructed patient to follow-up with a tourist agent if he would like further workup for his heart. Rx: Zofran ODT PRN nauea/vomiting Disposition: Discharge. Patient instructed to come back to the emergency room sh ould he have any worsening symptoms of diarrhea, nausea vomiting, any new or concerning complaints. Lab Data: Labs: Lab Results 03/30/21 03/30/21 03/30/21 Range/Units 10:02 10:32 10:32 WBC 6.5 (4.0-10.0) 10^3/ uL RBC 3.55 L (4.1-5.3) 10^6/u L Hgb 11.8 (11.7-16.6) g/dL Hct 34.1 L (42.0-52.0) % MCV 96.1 H (80-94) fl MCH 33.2 (28.0-34.0) pg MCHC 34.6 (30.0-36.0) g/dL RDW 12.2 (12.1-15.1) % Plt Count 230 (130-400) 10^3/c mm MPV 8.6 (7.4-10.4) fL Neut % (Auto) 53.0 % Lymph % (Auto) 35.5 % [place] % (Auto) 8.4 % Eos % (Auto) 1.4 % Baso % (Auto) 1.1 % Neut # (Auto) 3.45 (1.8-7.7) 10^3/u L Lymph # (Auto) 2.3 (0.8-4.8) 10^3/u L [place] # (Auto) 0.6 (0.2-0.9) 10^3/u L Eos # (Auto) 0.1 (0.0-0.8) 10^3/u L Baso # (Auto) 0.1 (0.0-0.1) 10^3/u L Nucleated RBC % (a uto) 0 % Nucleated RBCs # 0.0 /100WBC Sodium 134 L (136-145) mmol/L Potassium 2.9 L (3.5-5.1) mmol/L Chloride 99 (98-107) mmol/L Carbon Dioxide 24 (22-29) mmol/L Anion Gap 13.9 (5-19) BUN 6 (6-20) mg/dL Creatinine 0.7 (0.7-1.2) mg/dL GFR Calculation 119.9 (90-130) mL/min Glucose 88 (65-115) mg/dL Calculated Osmolal ity 275 L (285-295) mOsm/k g Calcium 8.6 (8.5-10.5) mg/dL Total Bilirubin 0.8 (0.15-1.2) mg/dL AST 22 (0-40) U/L ALT 19 (0-41) U/L Alkaline Phosphata se 74 (40-130) IU/L Troponin T Baselin e (0-15) ng/L Total Protein 5.2 L (6.6-8.7) g/dL Albumin 3.5 (3.5-5.2) g/dL Globulin 1.7 (1.3-4.6) g/dL Lipase 52 (13-60) U/L SARS-CoV-2 Ag (Rap id) Negative (Negative) 03/30/21 Range/Units 10:32 WBC (4.0-10.0) 10^3/ uL RBC (4.1-5.3) 10^6/u L Hgb (11.7-16.6) g/dL Hct (42.0-52.0) % MCV (80-94) fl MCH (28.0-34.0) pg MCHC (30.0-36.0) g/dL RDW (12.1-15.1) % Plt Count (130-400) 10^3/c mm MPV (7.4-10.4) fL Neut % (Auto) % Lymph % (Auto) % [place] % (Auto) % Eos % (Auto) % Baso % (Auto) % Neut # (Auto) (1.8-7.7) 10^3/u L Lymph # (Auto) (0.8-4.8) 10^3/u L [place] # (Auto) (0.2-0.9) 10^3/u L Eos # (Auto) (0.0-0.8) 10^3/u L Baso # (Auto) (0.0-0.1) 10^3/u L Nucleated RBC % (a uto) % Nucleated RBCs # /100WBC Sodium (136-145) mmol/L Potassium (3.5-5.1) mmol/L Chloride (98-107) mmol/L Carbon Dioxide (22-29) mmol/L Anion Gap (5-19) BUN (6-20) mg/dL Creatinine (0.7-1.2) mg/dL GFR Calculation (90-130) mL/min Glucose (65-115) mg/dL Calculated Osmolal ity (285-295) mOsm/k g Calcium (8.5-10.5) mg/dL Total Bilirubin (0.15-1.2) mg/dL AST (0-40) U/L ALT (0-41) U/L Alkaline Phosphata se (40-130) IU/L Troponin T Baselin e 12 (0-15) ng/L Total Protein (6.6-8.7) g/dL Albumin (3.5-5.2) g/dL Globulin (1.3-4.6) g/dL Lipase (13-60) U/L SARS-CoV-2 Ag (Rap id) (Negative) Imaging Data^: Other Imaging: Radiologist's impression: [address] [id number] ReportSigned Patient: Josue Cheng #: [id number]: 1970Acct#:[id number]/Sex: 50 / MADM Date: 03/30/21Loc: ERRoom/Bed:Attending Dr: Ordering Provider/Ordering MD: Justin Wilson MD Date of Service: 03/30/21 Procedure(s): XR chest 1V portable [id number] Accession Number(s): [id number] Report Number: [id number] WS: [id number] Portable AP upright chest, 03/30/2021 Clinical Data: recent chest pain Comparison: Portable chest, 10/19/2020. Findings: No nodules, masses or effusions are seen. The heart is normal. The pulmonary vascularity is not increased. No pneumonia or pneumothorax is seen. The patient's had an anterior cervical disc fusion. There is a bony fusion between the coracoid and undersurface of the left clavicle probably from an old injury. XR/XR chest 1V portable [id number] Impression: Negative chest. Dictated By:Amanda Solorzano MDSigned By:Amanda Solorzano MDSigned Date/Time:03/30/21 1012DD/ 1010 Discharge Plan Discharge Patient Disposition: Home Clinical Impression: Diarrhea, Nausea & vomiting, Hypokalemia Condition: Stable Prescriptions: New Zofran 4 mg tablet 4 mg PO Q8H PRN (Reason: nausea and vomiting) 4 Days Qty: 12 RF: 0 No Action buspirone 30 mg tablet 30 mg PO BID RF: 0 isosorbide mononitrate 30 mg tablet extended release 24 hr 30 mg PO DAILY RF: 0 atorvastatin 80 mg tablet 80 mg PO DAILY RF: 0 aspirin [Adult Aspirin Regimen] 81 mg tablet,delayed release (DR/EC) 81 mg PO DAILY@09 RF: 0 zonisamide 100 mg capsule 400 mg PO BEDTIME RF: 0 tamsulosin 0.4 mg capsule 0.4 mg PO BEDTIME RF: 0 nitroglycerin [Nitrostat] 0.4 mg tablet, sublingual 0.4 mg SUBLINGUAL Q5M PRN (Reason: Chest Pain) RF: 0 albuterol sulfate [ProAir HFA] 90 mcg/actuation HFA aerosol inhaler 2 puff INHALATION Q6H PRN (Reason: Shortness Of Breath) RF: 0 budesonide [Pulmicort] 0.5 mg/2 mL suspension for nebulization 0.5 mg INHALATION PRN RF: 0 ipratropium-albuterol 0.5 mg-3 mg(2.5 mg base)/3 mL solution for nebulization 3 ml INHALATION QID PRN (Reason: Shortness Of Breath) RF: 0 potassium chloride [Klor-Con 10] 10 mEq tablet extended release 20 meq PO DAILY PRN (Reason: rx last filled 03/10/21 14d/s) RF: 0 clonazepam 1 mg tablet 1 mg PO QID PRN (Reason: Anxiety) RF: 0 citalopram 20 mg tablet 20 mg PO BEDTIME RF: 0 sodium chloride 1 gram Tablet 1 g PO BID Qty: 120 RF: 0 ondansetron 4 mg tablet,disintegrating 4 mg PO Q6H PRN (Reason: nausea and vomiting) Qty: 14 RF: 0 metoclopramide HCl [Reglan] 10 mg tablet 10 mg PO Q6H PRN (Reason: nausea and vomiting) Qty: 20 RF: 0 metoprolol tartrate 25 mg Tablet 12.5 mg PO BID RF: 0 clopidogrel 75 mg tablet 75 mg PO DAILY@09 RF: 0 pantoprazole 40 mg tablet,delayed release (DR/EC) 40 mg PO BIDWM Qty: 60 RF: 0 Celebrex 200 mg Capsule 200 mg PO BID RF: 0 Carafate 100 mg/mL suspension 1 g PO TID RF: 0 quetiapine 50 mg tablet 50 mg PO BEDTIME RF: 0 Discharge Orders: Discharge ED (Routine); Ordered 03/30/21 Ordered By: Justin Wilson Referrals: Amanda Simon FNP [Primary Care Provider] - Discharge Diet: Advance as tolerated Discharge Activity: Resume usual activity Patient Instructions: Severe Acute Respiratory Syndrome (SARS) (ED), Acute Diarrhea (ED) Activity Restrictions/Additional Instructions: Follow-up with your primary care provider for evaluation of your diarrhea. Come back to the emergency you have any new or concerning complaints. Take your medicine as needed for nausea. 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
[2021-03-30] MEDS: lidocaine 2% viscous 15 ML, aluminum-mag hydrox-simethicon 30 ML, sucralfate oral liq 1 GM PO (10:23)
[2021-03-30] MEDS: ondansetron 2 mg/ML SDV 2 mL 4 MG IVP (10:23)
[2021-03-30] MEDS: sodium chloride 0.9% 1,000 ML 999 ML IV (10:30)
[2021-03-30 10:38] LABS: Basophils # 0.1 10^3/uL (0.0-0.1); Basophils % 1.1 %; Eosinophils # 0.1 10^3/uL (0.0-0.8); Eosinophils % 1.4 %; Hematocrit 34.1 % (42.0-52.0); Hemoglobin 11.8 g/dL (11.7-16.6); Lymphocytes # 2.3 10^3/uL (0.8-4.8); Lymphocytes % 35.5 %; Mean Corpuscular HGB Conc 34.6 g/dL (30.0-36.0); Mean Corpuscular Hemoglobin 33.2 pg (28.0-34.0); Mean Corpuscular Volume 96.1 fl (80-94); Mean Platelet Volume 8.6 fL (7.4-10.4); Monocytes # 0.6 10^3/uL (0.2-0.9); Monocytes % 8.4 %; Neutrophils # 3.45 10^3/uL (1.8-7.7); Nucleated Red Blood Cells % 0 %; Platelet Count 230 10^3/cmm (130-400); Red Blood Count 3.55 10^6/uL (4.1-5.3); Red Cell Distribution Width 12.2 % (12.1-15.1); White Blood Count 6.5 10^3/uL (4.0-10.0)
[2021-03-30 10:46] VITALS: BP 106/57; PULSE 75; RESP 17; O2SAT 100
[2021-03-30 10:57] LABS: Troponin(5th) Baseline 12 ng/L (0-15)
[2021-03-30 10:58] LABS: Alanine Aminotransferase 19 U/L (0-41); Albumin Level 3.5 g/dL (3.5-5.2); Alkaline Phosphatase 74 IU/L (40-130); Anion Gap 13.9 (5-19); Aspartate Amino Transferase 22 U/L (0-40); Blood Urea Nitrogen 6 mg/dL (6-20); Calcium 8.6 mg/dL (8.5-10.5); Carbon Dioxide 24 mmol/L (22-29); Chloride 99 mmol/L (98-107); Globulin 1.7 g/dL (1.3-4.6); Glomerular Filtration Rate 119.9 mL/min (90-130); Glucose 88 mg/dL (65-115); Lipase 52 U/L (13-60); Osmolality Calculated 275 mOsm/kg (285-295); Sodium 134 mmol/L (136-145); Total Bilirubin 0.8 mg/dL (0.15-1.2); Total Protein 5.2 g/dL (6.6-8.7)
[2021-03-30 11:04] LABS: Potassium 2.9 mmol/L (3.5-5.1)
--- NOTE | 2021-03-30 11:10 | PC.PHAR ---
pts life partner dion states she takes care of the pts medications-dion states the celebrex and celexa are on hold-dion states the pt hasnt taken his medications since sunday-dion states the pt takes kcl 20meq daily prn ashley last filled on 03/10/21 14d/s-rx written on 03/01/21 for quetiapine 25mg hs dion states the pt is still taking the 50mg hs ashley last filled on 03/19/21 30d/s-notes are made in the pharmacy comments
[2021-03-30] MEDS: potassium chloride ER 20 mEq Tablet 40 MEQ PO (11:17)
[2021-03-30 11:30] LABS: SARS Covid-2 Antigen Negative (Negative)
[2021-03-30 12:26] VITALS: BP 108/77
== END 2021-03-30 12:27 | disposition home or self-care (01) ==
PROVIDERS: Emergency Provider Emergency Medicine; PCP Nurse Practitioner Family
DX: E87.6 Hypokalemia (principal); R11.2 Nausea with vomiting, unspecified; R19.7 Diarrhea, unspecified; Z79.82 Long term (current) use of aspirin; Z79.02 Long term (current) use of antithrombotics/antiplatelets; I25.10 Atherosclerotic heart disease of native coronary artery without angina pectoris; J44.9 Chronic obstructive pulmonary disease, unspecified; I10 Essential (primary) hypertension; E78.2 Mixed hyperlipidemia; F17.210 Nicotine dependence, cigarettes, uncomplicated; Z20.822 Contact with and (suspected) exposure to COVID-19
CPT/HCPCS: 71045; 80053; 83690; 84484; 85025; 87426; 93005; 96361; 96374; 99284; J2405; J7030

== ENCOUNTER 2021-04-08 08:41 | Emergency (ER) | payer MEDICAID, SELFPAY ==
[2021-04-08] VITALS (7 sets, daily range): BP systolic 122–159; BP diastolic 65–96; PULSE 69–81; RESP 15–18; TEMP 36.6; O2SAT 96–100
[2021-04-08] MEDS: LORazepam 2 mg/mL INJ 1 mL IVP (09:28)
[2021-04-08] MEDS: sodium chloride 0.9% 1,000 ML 999 ML IV ×2 (09:28→11:59)
--- NOTE | 2021-04-08 09:38 | W.ED.ABDPA2 ---
HPI - Abdominal Pain General: Chief Complaint: Abdominal Pain Stated Complaint: Vomiting, diarrhea after taking meds Time Seen by Provider: 04/08/21 08:45 History of Present Illness: HPI narrative: 10-year-old male comes in complaining of vomiting and diarrhea for the last 9 to 10 days. He is has been able to take his clonazepam because it is disintegrating his other medications he states he generally has been throwing up all of his medications. He has noticed a few flecks of blood. He is not had any large amounts of hematemesis he denies any melena. He has had loose stools at times he states he will see pill fragments in the stool. No hematochezia. MD elicited complaint: abdominal pain Pertinent past history: gastritis and other (Recurrent/chronic pancreatitis) Onset (ago): day(s) (03-07) Pain Consistency: intermittent Location: Epigastric Quality: cramping Radiation: other (Diffuse) Exacerbating factors: eating Relieving factors: medication Associated Symptoms: Reports anorexia, bloating, change in bowel habits, change in stool character, GI cramping, diarrhea, dyspepsia, nausea, poor appetite and vomiting; Denies belching, chills, coffee ground emesis, constipation, dysuria, excessive flatus, fever(s), heartburn, hematochezia, hematuria, hematemesis, fecal incontinence, loose stools, melena and syncope Review of Systems Const: Denies: fever(s) or chills ENMT: Denies: throat pain, ear or mastoid pain, nasal discharge or nasal congestion Card: Denies: syncope Resp: Denies: dyspnea, productive cough or non-productive cough GI: Reports: nausea, vomiting, diarrhea, bloating, GI cramping, change in bowel habits and change in stool character; Denies: hematemesis, coffee ground emesis, heartburn, constipation, belching, excessive flatus, fecal incontinence, hematochezia or melena : Denies: dysuria or hematuria Skin/Breast: Denies: rash or pruritus PFSH ED PFSH: Medical History Abnormal finding on urinalysis Anxiety and depression Atherosclerotic heart disease of [place] coronary artery without angina pectoris Bladder wall thickening Cervical spondylosis Chronic migraine Chronic pancreatitis Chronic shortness of breath COPD (chronic obstructive pulmonary disease) Diverticulosis Essential (primary) hypertension GERD (gastroesophageal reflux disease) H. pylori infection Heart attack Hx of coronary angiogram Medical marijuana use Mixed hyperlipidemia Osteoarthritis Pharyngitis Radiculopathy, lumbar region Seizure disorder SOB (shortness of breath) Tobacco dependency Torsion of appendix testis Total bilirubin, elevated Urethral stricture Surgical History H/O chest tube placement H/O left knee surgery H/O neck surgery H/O removal of testicle H/O right knee surgery History of appendectomy History of cholecystectomy Stented coronary artery Family History Brother Parkinson disease Cancer Family/Other Cancer Other CAD (coronary artery disease) Social History Quit status (tobacco): has quit using tobacco Year quit tobacco: 2020 - 1PPD x 35 Years Smoking risk assessment/counseling performed?: Yes Alcohol intake: former Year of sobriety/quit date alcohol: 2009 Lives independently: Yes Household members: significant other Current occupational status: disabled History of recent travel: No Current gender identity: Male Physical Exam Const: COMMON NORMALS: no acute distress GENERAL APPEARANCE: cooperative and comfortable ORIENTATION/CONSCIOUSNESS: Yes awake, Yes oriented to person, Yes oriented to place and Yes oriented to time HENMT: COMMON NORMALS: normocephalic, atraumatic and hearing grossly normal bilaterally HEAD & SCALP: normocephalic and atraumatic Neck/C-Spine: COMMON NORMALS: no JVD Resp: COMMON NORMALS: normal respiratory effort, No retractions, No use of accessory muscles and clear to auscultation bilaterally AUSCULTATION: clear to auscultation bilaterally Cardio: COMMON NORMALS: no JVD, regular rate, regular rhythm and No murmurs present (Cardio) RATE: regular rate RHYTHM: regular rhythm GI: COMMON NORMALS: Soft to palpation and No hepatosplenomegaly present AUSCULTATION: Yes normoactive bowel sounds PALPATION: Yes Soft to palpation, No Tenderness to palpation present (GI), No Guarding due to palpation present (GI) and Yes No hepatosplenomegaly present Extremity: COMMON NORMALS: normal to inspection, capillary refill normal, no clubbing, cyanosis or edema, no calf tenderness and no pedal edema Neuro: SENSORIUM/ORIENTATION: Yes oriented to person, Yes oriented to place and Yes oriented to time Skin: COMMON NORMALS: no rashes or lesions noted GENERAL SKIN EXAM: no rashes or lesions noted Course Vital Signs: Vital signs: Vital Signs Temperature 97.9 F 04/08/21 08:53 Pulse Rate 80 04/08/21 13:20 Respiratory Rate 18 04/08/21 13:20 Blood Pressure 122/81 04/08/21 13:20 Pulse Oximetry 96 04/08/21 13:20 MDM - Abdominal Pain MDM Narrative: Medical decision making narrative: Labs reviewed. Abdominal exam generally benign patient has had multiple CTs in the past. He is frequently had this problem he has improved his fluids and medications given. 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1 (0.0-0.8) 10^3/u L Baso # (Auto) 0.1 (0.0-0.1) 10^3/u L Nucleated RBC % (a uto) 0 % Nucleated RBCs # 0.0 /100WBC Sodium 139 (136-145) mmol/L Potassium 3.4 L (3.5-5.1) mmol/L Chloride 105 (98-107) mmol/L Carbon Dioxide 22 (22-29) mmol/L Anion Gap 15.4 (5-19) BUN 9 (6-20) mg/dL Creatinine 0.6 L (0.7-1.2) mg/dL GFR Calculation 143.2 H (90-130) mL/min Glucose 113 (65-115) mg/dL Calculated Osmolal ity 287 (285-295) mOsm/k g Calcium 8.2 L (8.5-10.5) mg/dL Total Bilirubin 0.7 (0.15-1.2) mg/dL AST 18 (0-40) U/L ALT 18 (0-41) U/L Alkaline Phosphata se 71 (40-130) IU/L Total Protein 6.2 L (6.6-8.7) g/dL Albumin 3.7 (3.5-5.2) g/dL Globulin 2.5 (1.3-4.6) g/dL Lipase 28 (13-60) U/L Discharge Plan Discharge Patient Disposition: Home Clinical Impression: Intractable nausea and vomiting Condition: Stable Prescriptions: New haloperidol 5 mg tablet 2.5 mg PO TID PRN (Reason: nausea/vomitting) Qty: 14 RF: 0 No Action buspirone 30 mg tablet 30 mg PO BID RF: 0 isosorbide mononitrate 30 mg tablet extended release 24 hr 30 mg PO DAILY RF: 0 atorvastatin 80 mg tablet 80 mg PO DAILY RF: 0 aspirin [Adult Aspirin Regimen] 81 mg tablet,delayed release (DR/EC) 81 mg PO DAILY@09 RF: 0 zonisamide 100 mg capsule 400 mg PO BEDTIME RF: 0 tamsulosin 0.4 mg capsule 0.4 mg PO BEDTIME RF: 0 nitroglycerin [Nitrostat] 0.4 mg tablet, sublingual 0.4 mg SUBLINGUAL Q5M PRN (Reason: Chest Pain) RF: 0 albuterol sulfate [ProAir HFA] 90 mcg/actuation HFA aerosol inhaler 2 puff INHALATION Q6H PRN (Reason: Shortness Of Breath) RF: 0 budesonide [Pulmicort] 0.5 mg/2 mL suspension for nebulization 0.5 mg INHALATION PRN RF: 0 ipratropium-albuterol 0.5 mg-3 mg(2.5 mg base)/3 mL solution for nebulization 3 ml INHALATION QID PRN (Reason: Shortness Of Breath) RF: 0 potassium chloride [Klor-Con 10] 10 mEq tablet extended release 20 meq PO DAILY PRN (Reason: rx last filled 03/10/21 14d/s) RF: 0 clonazepam 1 mg tablet 1 mg PO QID PRN (Reason: Anxiety) RF: 0 citalopram 20 mg tablet 20 mg PO BEDTIME RF: 0 sodium chloride 1 gram Tablet 1 g PO BID Qty: 120 RF: 0 ondansetron 4 mg tablet,disintegrating 4 mg PO Q6H PRN (Reason: nausea and vomiting) Qty: 14 RF: 0 promethazine 25 mg Suppository 25 mg MD Q6H PRN (Reason: per dion-not picked up from the pharmacy ) RF: 0 metoclopramide HCl [Reglan] 10 mg tablet 10 mg PO Q6H PRN (Reason: nausea and vomiting) Qty: 20 RF: 0 metoprolol tartrate 25 mg Tablet 12.5 mg PO BID RF: 0 clopidogrel 75 mg tablet 75 mg PO DAILY@09 RF: 0 pantoprazole 40 mg tablet,delayed release (DR/EC) 40 mg PO BIDWM Qty: 60 RF: 0 celecoxib [Celebrex] 200 mg Capsule 200 mg PO BID PRN (Reason: pts life partner dion states this is on hold) RF: 0 sucralfate [Carafate] 100 mg/mL suspension 1 g PO TID RF: 0 quetiapine 50 mg tablet 50 mg PO BEDTIME RF: 0 Discharge Orders: Discharge ED (Routine); Ordered 04/08/21 Ordered By: Torito Mendosa Referrals: Amanda Simon, CHIEF CRUISER [Primary Care Provider] - Discharge Diet: Clear Liquid Discharge Activity: Increase activity as tolerated Patient Instructions: Opioid Safety Coding Level of Care 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
--- NOTE | 2021-04-08 10:31 | PC.PHAR ---
pt states his life partner dion takes care of his medications-dion states the pt hasnt really taken his medications in 3 weeks-dion states the celebrex and citalopram are on hold-notes are made in the pharmacy comments-dion states they havent picked up the promethegan suppository
[2021-04-08 11:04] LABS: Basophils # 0.1 10^3/uL (0.0-0.1); Eosinophils # 0.1 10^3/uL (0.0-0.8); Eosinophils % 0.7 %; Hemoglobin 13.1 g/dL (11.7-16.6); Lymphocytes # 1.7 10^3/uL (0.8-4.8); Lymphocytes % 23.1 %; Mean Corpuscular HGB Conc 33.6 g/dL (30.0-36.0); Mean Corpuscular Volume 98.2 fl (80-94); Mean Platelet Volume 8.7 fL (7.4-10.4); Monocytes # 0.4 10^3/uL (0.2-0.9); Neutrophils # 4.99 10^3/uL (1.8-7.7); Neutrophils % 69.9 %; Nucleated Red Blood Cells % 0 %; Platelet Count 258 10^3/cmm (130-400); Red Blood Count 3.97 10^6/uL (4.1-5.3); Red Cell Distribution Width 12.5 % (12.1-15.1); White Blood Count 7.1 10^3/uL (4.0-10.0)
[2021-04-08 11:23] LABS: Alanine Aminotransferase 18 U/L (0-41); Albumin Level 3.7 g/dL (3.5-5.2); Alkaline Phosphatase 71 IU/L (40-130); Anion Gap 15.4 (5-19); Aspartate Amino Transferase 18 U/L (0-40); Blood Urea Nitrogen 9 mg/dL (6-20); Calcium 8.2 mg/dL (8.5-10.5); Carbon Dioxide 22 mmol/L (22-29); Chloride 105 mmol/L (98-107); Globulin 2.5 g/dL (1.3-4.6); Glomerular Filtration Rate 143.2 mL/min (90-130); Glucose 113 mg/dL (65-115); Lipase 28 U/L (13-60); Osmolality Calculated 287 mOsm/kg (285-295); Potassium 3.4 mmol/L (3.5-5.1); Sodium 139 mmol/L (136-145); Total Bilirubin 0.7 mg/dL (0.15-1.2); Total Protein 6.2 g/dL (6.6-8.7)
[2021-04-08] MEDS: haloperidol inj 5 mg/mL INJ 1 mL 2.5 MG IVP (11:31)
[2021-04-08] MEDS: diphenhydrAMINE 50 mg/mL SDV 1mL IVP (11:59)
[2021-04-08] MEDS: morphine 4 mg/mL SDV 1 mL IVP (11:59)
== END 2021-04-08 13:20 | disposition home or self-care (01) ==
PROVIDERS: Emergency Provider Family Medicine; PCP Nurse Practitioner Family
DX: R11.2 Nausea with vomiting, unspecified (principal); Z79.82 Long term (current) use of aspirin; Z79.02 Long term (current) use of antithrombotics/antiplatelets; I25.10 Atherosclerotic heart disease of native coronary artery without angina pectoris; J44.9 Chronic obstructive pulmonary disease, unspecified; I10 Essential (primary) hypertension; E78.2 Mixed hyperlipidemia; Z87.891 Personal history of nicotine dependence
CPT/HCPCS: 36415; 80053; 83690; 85025; 96361; 96374; 96375; 99284; J1200; J1630; J2060; J2270; J7030

== ENCOUNTER → 2021-08-03 14:12 | Outpatient (BNVA) | payer MEDICAID, SELFPAY | PROVIDERS: PCP Family Medicine; Visit Provider Orthopaedic Surgery | DX: M17.11 Unilateral primary osteoarthritis, right knee (principal); S83.511D Sprain of anterior cruciate ligament of right knee, subsequent encounter; S83.512D Sprain of anterior cruciate ligament of left knee, subsequent encounter; X58.XXXD Exposure to other specified factors, subsequent encounter | CPT/HCPCS: 73560; 73565 ==

== ENCOUNTER 2021-08-12 07:22 | Emergency (ER) | payer MEDICAID, SELFPAY ==
[2021-08-12 07:28] VITALS: BP 102/60; PULSE 86; RESP 16; TEMP 36.4; O2SAT 96; BMI 31.3
--- NOTE | 2021-08-12 07:40 | W.ED.EXTPRO ---
HPI - Extremity Problem General: Chief complaint: Extremity Injury, Lower Stated complaint: RIGHT LEG PAINS Time Seen by Provider: 08/12/21 07:23 Source: patient Mode of arrival: ambulatory Limitations: no limitations History of Present Illness: HPI Narrative: 50-year-old male presents to the ER today for right knee and hip pain. Patient reports he is scheduled for a right knee replacement September 05 and saw the Ortho doctor last week. Patient reports after seeing the Ortho doctor and him pulling and pushing on his knee, he has had persistent knee pain since. Patient called the Ortho doctor who told him he would not prescribe him anything for pain until after the surgery. Patient reports the knee pain is now causing hip pain and he is having difficulty walking. Patient reports ibuprofen 800 mg is not improving his pain at home. Patient denies any new injury to the knee. MD Complaint: extremity pain and joint pain Onset (ago): month(s) Pain Consistency: constant Location: right Quality: aching Review of Systems General: Reports: 10 or more systems reviewed and unremarkable except in HPI and below PFSH ED PFSH: Medical History Abnormal finding on urinalysis Anxiety and depression Atherosclerotic heart disease of [place] coronary artery without angina pectoris Bladder wall thickening Cervical spondylosis Chronic migraine Chronic pancreatitis Chronic shortness of breath COPD (chronic obstructive pulmonary disease) Diverticulosis Essential (primary) hypertension GERD (gastroesophageal reflux disease) H. pylori infection Heart attack Hx of coronary angiogram Medical marijuana use Mixed hyperlipidemia Osteoarthritis Pharyngitis Radiculopathy, lumbar region Seizure disorder SOB (shortness of breath) Tobacco dependency Torsion of appendix testis Total bilirubin, elevated Urethral stricture Surgical History H/O chest tube placement H/O left knee surgery H/O neck surgery H/O removal of testicle H/O right knee surgery History of appendectomy History of cholecystectomy Stented coronary artery Family History Brother Parkinson disease Cancer Diabetes Stroke Family/Other Cancer Chronic kidney disease (CKD) Suicide Grandmother CAD (coronary artery disease) Cancer Lung disease Grandfather Dementia Mother Lung disease Father Suicide Denies family history of Clotting disorder Anesthesia complication Bleeding disorder Social History Quit status (tobacco): has quit using tobacco Year quit tobacco: 2020 - 1PPD x 35 Years Smoking risk assessment/counseling performed?: Yes Alcohol intake: former Year of sobriety/quit date alcohol: 2009 Lives independently: Yes Household members: significant other Current occupational status: disabled History of recent travel: No Current gender identity: Male Physical Exam Const: COMMON NORMALS: no acute distress, average body habitus and patient oriented x3 GENERAL APPEARANCE: cooperative and comfortable HENMT: COMMON NORMALS: normocephalic HEAD & SCALP: normocephalic Eye: COMMON NORMALS: conjunctivae normal CONJUNCTIVA: Yes conjunctivae normal Resp: COMMON NORMALS: normal respiratory effort EFFORT & INSPECTION: Yes able to speak in complete sentences Cardio: COMMON NORMALS: regular rate and regular rhythm RATE: regular rate RHYTHM: regular rhythm Extremity: RIGHT LOWER EXTREMITY: Yes knee joint (no acute injury noted; minimal swelling) Right knee: Yes ROM (decreased, chronic secondary to pain/arthritis) Neuro: COMMON NORMALS: patient oriented x3 and moves all extremities Psych: COMMON NORMALS: mental status grossly normal and cooperative Skin: COMMON NORMALS: no rashes or lesions noted and no wounds GENERAL SKIN EXAM: no rashes or lesions noted Course ED course: Patient presents to the ER today for right knee and hip pain. Patient has a history of chronic knee pain and is having a knee replacement on the . Patient reports pain worse since last evaluation by Ortho. Ibuprofen at home is not improving patient's pain. No imaging is necessary at this time as patient has not had a new injury. We will try different medication to send patient home with and patient also requesting Toradol in the ER. Vital Signs: Vital signs: Vital Signs Temperature 97.6 F 08/12/21 07:28 Pulse Rate 86 08/12/21 07:56 Respiratory Rate 16 08/12/21 07:56 Blood Pressure 108/64 08/12/21 07:56 Pulse Oximetry 97 08/12/21 07:56 Critical Care Time Critical Care Time: Critical Care Time: No MDM - Extremity (Nontraumatic) MDM Narrative: Medical decision making narrative: 50-year-old male with a history of osteoarthritis of the right knee and scheduled for knee replacement on September 05, presents to the ER today for worsening right knee pain. Patient reports the pain has worsened since he saw Ortho last week. Patient is taking 800 mg of ibuprofen at home with no improvement. Patient would like something different for pain and reports that he has to travel today so would like something to make it more comfortable. Discussed with patient that we will try a longer acting anti-inflammatory and he should not take ibuprofen at home with this however he can take Tylenol. Patient has appointment with specialist in the coming days and he should keep that. Rest recommended. Elevation recommended. Return to the ER with any new or worsening symptoms. Patient verbalized understanding and is in agreement with the treatment plan. Discharge Plan Discharge Patient Disposition: Home Clinical Impression: Osteoarthritis of right knee Qualifiers: Osteoarthritis type: unspecified Qualified Code(s): M17.11 - Unilateral primary osteoarthritis, right knee Condition: Stable Prescriptions: New meloxicam 15 mg tablet 15 mg PO DAILY Qty: 14 RF: 0 No Action buspirone 30 mg tablet 30 mg PO BID RF: 0 zonisamide 100 mg capsule 400 mg PO BEDTIME RF: 0 tamsulosin 0.4 mg capsule 0.4 mg PO BEDTIME RF: 0 nitroglycerin [Nitrostat] 0.4 mg tablet, sublingual 0.4 mg SUBLINGUAL Q5M PRN (Reason: Chest Pain) RF: 0 albuterol sulfate [ProAir HFA] 90 mcg/actuation HFA aerosol inhaler 2 puff INHALATION Q6H PRN (Reason: Shortness Of Breath) RF: 0 budesonide [Pulmicort] 0.5 mg/2 mL suspension for nebulization 0.5 mg INHALATION PRN RF: 0 ipratropium-albuterol 0.5 mg-3 mg(2.5 mg base)/3 mL solution for nebulization 3 ml INHALATION QID PRN (Reason: Shortness Of Breath) RF: 0 potassium chloride [Klor-Con 10] 10 mEq tablet extended release 20 meq PO DAILY PRN (Reason: rx last filled 03/10/21 14d/s) RF: 0 clonazepam 1 mg tablet 2 mg PO BID PRN (Reason: Anxiety) RF: 0 Creon 3,000-9,500- 15,000 unit capsule,delayed release(DR/EC) 1 cap PO BID 30 Days Qty: 60 RF: 2 sumatriptan succinate 50 mg tablet See Rx Instructions PO .COMPLEX RF: 0 hydroxyzine HCl 50 mg tablet 50 mg PO TID RF: 0 esomeprazole magnesium [Nexium Packet] [address] for susp in packet 40 mg PO DAILY 30 Days Qty: 30 RF: 0 atorvastatin 80 mg tablet 80 mg PO DAILY Qty: 90 RF: 3 clopidogrel 75 mg tablet 75 mg PO DAILY@09 Qty: 90 RF: 3 isosorbide mononitrate 30 mg tablet extended release 24 hr 30 mg PO DAILY Qty: 90 RF: 3 aspirin [Adult Aspirin Regimen] 81 mg tablet,delayed release (DR/EC) 81 mg PO DAILY@09 Qty: 90 RF: 3 ondansetron 4 mg tablet,disintegrating 4 mg PO Q6H PRN (Reason: nausea and vomiting) Qty: 14 RF: 0 haloperidol 5 mg tablet 2.5 mg PO TID PRN (Reason: nausea/vomitting) Qty: 14 RF: 0 metoclopramide HCl [Reglan] 10 mg tablet 10 mg PO Q6H PRN (Reason: nausea and vomiting) Qty: 20 RF: 0 pantoprazole 40 mg tablet,delayed release (DR/EC) 40 mg PO BIDWM Qty: 60 RF: 0 quetiapine 50 mg tablet 50 mg PO BEDTIME RF: 0 Discharge Orders: Discharge ED (Routine); Ordered 08/12/21 Ordered By: Sindy Salazar Referrals: Davy Blanton [Primary Care Provider] - Discharge Diet: Usual diet Discharge Activity: Increase activity as tolerated Patient Instructions: Opioid Safety Activity Restrictions/Additional Instructions: Take meloxicam as prescribed. Do not take ibuprofen at home. You can take Tylenol for any breakthrough pain. Rest recommended. Follow-up with PCP or specialist in 3 to 5 days if no improvement. Return to the ER with new or worsening symptoms. 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
[2021-08-12 07:45] VITALS: BP 108/64; PULSE 86; RESP 16; O2SAT 97
[2021-08-12] MEDS: ketorolac 30 mg/mL INJ IM (07:46)
[2021-08-12 07:56] VITALS: BP 108/64; PULSE 86; RESP 16; O2SAT 97
== END 2021-08-12 07:51 | disposition home or self-care (01) ==
PROVIDERS: Emergency Provider Physician Assistant; PCP Family Medicine
DX: M17.11 Unilateral primary osteoarthritis, right knee (principal); Z79.02 Long term (current) use of antithrombotics/antiplatelets; Z79.82 Long term (current) use of aspirin; I25.10 Atherosclerotic heart disease of native coronary artery without angina pectoris; J44.9 Chronic obstructive pulmonary disease, unspecified; I10 Essential (primary) hypertension; E78.2 Mixed hyperlipidemia; Z87.891 Personal history of nicotine dependence
CPT/HCPCS: 96372; 99283; J1885

== ENCOUNTER 2021-08-15 03:18 | Inpatient (IN) | payer MEDICAID, SELFPAY ==
[2021-08-15] VITALS (16 sets, daily range): BP systolic 115–157; BP diastolic 71–97; PULSE 64–89; RESP 14–31; TEMP 36.5–36.6; O2SAT 93–98; BMI 31.3; BMI 30.6
--- NOTE | 2021-08-15 03:22 | XRR_ITS ---
PROCEDURE INFORMATION: Exam: XR Chest Exam date and time: 08/15/2021 3:22 AM Age: 50 years old Clinical indication: Chest wall pain; Additional info: Cp TECHNIQUE: Imaging protocol: XR of the chest. Views: 1 view. COMPARISON: CR XR chest 1V portable [id number] 03/30/2021 9:58 AM FINDINGS: Lungs: Continued hyperinflation of the lungs. Calcified granuloma in the lateral left lung base still likely. No interval consolidation or haziness in the lungs. Pleural spaces: Still no pneumothorax or apparent pleural fluid. Heart/Mediastinum: Interval slight increase in the heart size to the upper limits of normal. Bones/joints: Continued screw and plate fixation device in the lower cervical spine. Continued patchy ossification in the left coracoclavicular ligament likely due to prior injury. No suggestion of acute bony disease. XR/XR chest 1V portable [id number] IMPRESSION: Interval slight increase in the heart size, but no apparent acute disease. Continued hyperinflation of the lungs suggesting emphysema. Other chronic findings detailed above.
--- NOTE | 2021-08-15 03:23 | ECG_ITS ---
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1970 Requested By: Mercedes Gaines Order Number: [id number] Reading MD: GILBERTO MCKENZIE Measurements Intervals [place] Rate: 66 P: 68 NM: 172 QRS: 97 QRSD: 101 T: 65 QT: 404 QTc: 425 Interpretive Statements SINUS RHYTHM WITH SINUS ARRHYTHMIA BORDERLINE RIGHT AXIS DEVIATION [QRS AXIS > 90] MODERATE ST DEPRESSION [0.05+ mV ST DEPRESSION] Compared to ECG 03/30/2021 10:44:21 ST (T wave) deviation now present T-wave abnormality no longer present Possible ischemia no longer present Electronically Signed On 08-15-2021 20:53:54 PRODUCTION SUPPLY EQUIPMENT TENDER by GILBERTO MCKENZIE [id number] f
--- NOTE | 2021-08-15 03:53 | ED_ITS ---
HPI - Nausea/Vomiting/Diarrhea General: Chief complaint: Nausea/Vomiting/Diarrhea Stated complaint: N/V/CP Time Seen by Provider: 08/15/21 03:20 Source: patient and EMS Mode of arrival: EMS Limitations: no limitations History of Present Illness: HPI Narrative: 50-year-old male states he has been having nausea vomiting diarrhea and chest pain throughout the night. He states the pain has been a sharp pain along with a pressure pain been intermittent nature denies any worsening improving factors he is actively vomiting EMS was unable to get IV they did give him IM Phenergan with minimal improvement he denies any abdominal pain denies any fever denies any sick contacts. Associated nausea: Yes Associated symtoms: Reports chest pain and nausea; Denies dysuria or headache(s) Review of Systems Const: Denies: fever(s), chills, body aches or change in appetite Eyes: Denies: blurry vision or eye discomfort ENMT: Denies: throat pain or dental pain Card: Reports: chest pain Resp: Denies: dyspnea GI: Reports: nausea and vomiting : Denies: dysuria Musc: Denies: neck pain or back pain Skin/Breast: Denies: rash Neuro: Denies: headache(s) Psych: Denies: depression [place]/Lymph: Denies: easy bruising All/Imm: Denies: urticaria PFSH ED PFSH: Medical History (Updated 08/15/21 @ 18:23 by Mercedes Gaines MD) Abnormal finding on urinalysis Anxiety and depression Atherosclerotic heart disease of [place] coronary artery without angina pectoris Bladder wall thickening Cervical spondylosis Chronic migraine Chronic pancreatitis Chronic shortness of breath COPD (chronic obstructive pulmonary disease) Diverticulosis Essential (primary) hypertension GERD (gastroesophageal reflux disease) H. pylori infection Heart attack Hx of coronary angiogram Medical marijuana use Mixed hyperlipidemia Osteoarthritis Pharyngitis Radiculopathy, lumbar region Seizure disorder SOB (shortness of breath) Tobacco dependency Torsion of appendix testis Total bilirubin, elevated Urethral stricture Surgical History H/O chest tube placement H/O left knee surgery H/O neck surgery H/O removal of testicle H/O right knee surgery History of appendectomy History of cholecystectomy Stented coronary artery Family History Brother Parkinson disease Cancer Diabetes Stroke Family/Other Cancer Chronic kidney disease (CKD) Suicide Grandmother CAD (coronary artery disease) Cancer Lung disease Grandfather Dementia Mother Lung disease Father Suicide Denies family history of Clotting disorder Anesthesia complication Bleeding disorder Social History Quit status (tobacco): has quit using tobacco Year quit tobacco: 2020 - 1PPD x 35 Years Smoking risk assessment/counseling performed?: Yes Alcohol intake: former Year of sobriety/quit date alcohol: 2009 Lives independently: Yes Household members: significant other Current occupational status: disabled History of recent travel: No Current gender identity: Male Physical Exam Const: COMMON NORMALS: no acute distress, patient oriented x3 and healthy appearing HENMT: COMMON NORMALS: normocephalic and atraumatic HEAD & SCALP: normocephalic and atraumatic Eye: COMMON NORMALS: Equal, round and reactive pupils present and EOMs intact bilaterally PUPIL: Yes Equal, round and reactive pupils present Neck/C-Spine: COMMON NORMALS: full ROM and supple Chest: COMMONS NORMALS: normal inspection of the chest and normal palpation of entire chest wall Resp: COMMON NORMALS: normal respiratory effort, No retractions, No use of accessory muscles and clear to auscultation bilaterally AUSCULTATION: clear to auscultation bilaterally Cardio: COMMON NORMALS: regular rate, regular rhythm and No murmurs present (Cardio) RATE: regular rate RHYTHM: regular rhythm GI: COMMON NORMALS: Normal to inspection, nondistended, normoactive bowel sounds present, Soft to palpation, non-tender and no masses PALPATION: Yes Soft to palpation Extremity: COMMON NORMALS: normal to inspection and full ROM Neuro: COMMON NORMALS: patient oriented x3, moves all extremities and no focal motor deficits Psych: COMMON NORMALS: mental status grossly normal, Normal thought process present and cooperative THOUGHT PROCESS: Normal thought process present Skin: COMMON NORMALS: no rashes or lesions noted and no wounds GENERAL SKIN EXAM: no rashes or lesions noted Course Vital Signs: Vital signs: Vital Signs Temperature 97.7 F 08/15/21 03:19 Pulse Rate 64 08/15/21 16:12 Respiratory Rate 18 08/15/21 16:12 Blood Pressure 121/87 08/15/21 16:12 Pulse Oximetry 98 08/15/21 16:12 MDM - Nausea/Vomiting/Diarrhea MDM Narrative: Medical decision making narrative: Patient presents here with elevated troponin consistent with an NSTEMI EKG shows no ST elevation he is also had vomiting here as well. I spoke to hospitalist along with production team manager and will admit for NSTEMI Lab Data: Labs: Lab Results 08/15/21 08/15/21 08/15/21 04:10 04:10 04:10 WBC 8.7 10^3/uL 10^3/ uL (4.0-10.0) RBC 4.28 10^6/uL 10^6 /uL (4.1-5.3) Hgb 14.0 g/dL g/dL (11.7-16.6) Hct 42.6 % % (42.0-52.0) MCV 99.5 fl H fl (80-94) MCH 32.7 pg pg (28.0-34.0) MCHC 32.9 g/dL g/dL (30.0-36.0) RDW 12.6 % % (12.1-15.1) Plt Count 273 10^3/cmm 10^3 /cmm (130-400) MPV 9.1 fL fL (7.4-10.4) Neut % (Auto) 74.1 % % Lymph % (Auto) 16.9 % % [place] % (Auto) 5.9 % % Eos % (Auto) 2.1 % % Baso % (Auto) 0.5 % % Neut # (Auto) 6.47 10^3/uL 10^3 /uL (1.8-7.7) Lymph # (Auto) 1.5 10^3/uL 10^3/ uL (0.8-4.8) [place] # (Auto) 0.5 10^3/uL 10^3/ uL (0.2-0.9) Eos # (Auto) 0.2 10^3/uL 10^3/ uL (0.0-0.8) Baso # (Auto) 0.0 10^3/uL 10^3/ uL (0.0-0.1) Nucleated RBC % (a uto) 0 % % Nucleated RBCs # 0.0 /100WBC /100W BC Sodium 142 mmol/L mmol/L (136-145) Potassium 4.0 mmol/L mmol/L (3.5-5.1) Chloride 110 mmol/L H mmol /L (98-107) Carbon Dioxide 17 mmol/L L mmol/ L (22-29) Anion Gap 19.0 (5-19) BUN 12 mg/dL mg/dL (6-20) Creatinine 1.0 mg/dL mg/dL (0.7-1.2) GFR Calculation 79.4 mL/min L mL/ min (90-130) Glucose 155 mg/dL H mg/dL (65-115) Calculated Osmolal ity 297 mOsm/kg H mOs m/kg (285-295) Calcium 8.8 mg/dL mg/dL (8.5-10.5) Total Bilirubin 0.4 mg/dL mg/dL (0.15-1.2) AST 23 U/L U/L (0-40) ALT 14 U/L U/L (0-41) Alkaline Phosphata se 78 IU/L IU/L (40-130) Troponin T Baselin e 117 ng/L H* ng/L (0-15) Troponin T 120 Min redding Delta Troponin T Total Protein 6.4 g/dL L g/dL (6.6-8.7) Albumin 4.1 g/dL g/dL (3.5-5.2) Globulin 2.3 g/dL g/dL (1.3-4.6) Lipase 29 U/L U/L (13-60) SARS-CoV-2 Ag (Rap id) 08/15/21 08/15/21 04:20 05:45 WBC RBC Hgb Hct MCV MCH MCHC RDW Plt Count MPV Neut % (Auto) Lymph % (Auto) [place] % (Auto) Eos % (Auto) Baso % (Auto) Neut # (Auto) Lymph # (Auto) [place] # (Auto) Eos # (Auto) Baso # (Auto) Nucleated RBC % (a uto) Nucleated RBCs # Sodium Potassium Chloride Carbon Dioxide Anion Gap BUN Creatinine GFR Calculation Glucose Calculated Osmolal ity Calcium Total Bilirubin AST ALT Alkaline Phosphata se Troponin T Baselin e Troponin T 120 Min redding 124.2 ng/L H ng/L (0-15) Delta Troponin T 7.2 ABS# ABS# (0-10) Total Protein Albumin Globulin Lipase SARS-CoV-2 Ag (Rap id) Negative (Negative) EKG Data^: EKG 1: Attestation: I personally reviewed and interpreted this EKG as follows: EKG interpretation date: 08/15/21 EKG interpretation time: 03:25 Interpretation: nsr hr [address] or t wave abnormalities qrs 101 qtc 418 Discharge Plan Discharge Patient Disposition: Admitted As Inpatient Admit Provider: Harry Black Clinical Impression: NSTEMI (non-ST elevated myocardial infarction), Vomiting Condition: Stable Coding Level of Care Code ED Crisis Therapist for Chg 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
[2021-08-15 04:16] LABS: Basophils % 0.5 %; Eosinophils # 0.2 10^3/uL (0.0-0.8); Eosinophils % 2.1 %; Hematocrit 42.6 % (42.0-52.0); Lymphocytes # 1.5 10^3/uL (0.8-4.8); Lymphocytes % 16.9 %; Mean Corpuscular HGB Conc 32.9 g/dL (30.0-36.0); Mean Corpuscular Hemoglobin 32.7 pg (28.0-34.0); Mean Corpuscular Volume 99.5 fl (80-94); Mean Platelet Volume 9.1 fL (7.4-10.4); Monocytes # 0.5 10^3/uL (0.2-0.9); Monocytes % 5.9 %; Neutrophils # 6.47 10^3/uL (1.8-7.7); Neutrophils % 74.1 %; Nucleated Red Blood Cells % 0 %; Platelet Count 273 10^3/cmm (130-400); Red Blood Count 4.28 10^6/uL (4.1-5.3); Red Cell Distribution Width 12.6 % (12.1-15.1); White Blood Count 8.7 10^3/uL (4.0-10.0)
[2021-08-15] MEDS: ondansetron 2 mg/ML SDV 2 mL 4 MG IVP (04:16)
[2021-08-15] MEDS: metoclopramide 5 mg/mL SDV 2 mL 10 MG IVP (04:16)
[2021-08-15] MEDS: diphenhydrAMINE 50 mg/mL SDV 1mL IVP (04:18)
[2021-08-15] MEDS: sodium chloride 0.9% 1,000 ML 999 ML IV (04:18)
[2021-08-15 04:40] LABS: Alanine Aminotransferase 14 U/L (0-41); Albumin Level 4.1 g/dL (3.5-5.2); Alkaline Phosphatase 78 IU/L (40-130); Aspartate Amino Transferase 23 U/L (0-40); Blood Urea Nitrogen 12 mg/dL (6-20); Calcium 8.8 mg/dL (8.5-10.5); Carbon Dioxide 17 mmol/L (22-29); Chloride 110 mmol/L (98-107); Globulin 2.3 g/dL (1.3-4.6); Glomerular Filtration Rate 79.4 mL/min (90-130); Glucose 155 mg/dL (65-115); Lipase 29 U/L (13-60); Osmolality Calculated 297 mOsm/kg (285-295); Sodium 142 mmol/L (136-145); Total Bilirubin 0.4 mg/dL (0.15-1.2); Total Protein 6.4 g/dL (6.6-8.7)
[2021-08-15 04:51] LABS: SARS Covid-2 Antigen Negative (Negative)
[2021-08-15 04:52] LABS: Troponin(5th) Baseline 117 ng/L (0-15)
--- NOTE | 2021-08-15 04:58 | PC.NURSE ---
patient having CP all day sunday. took nitro and helped alleviate the pain but then N/V began. He has been exposed to Covid within the last 2 weeks. denies fever.
[2021-08-15] MEDS: enoxaparin 100 mg/mL Syringe 90 MG SUBCUT ×2 (05:14→18:07)
--- NOTE | 2021-08-15 05:23 | ECG_ITS ---
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
[2021-08-15 06:30] LABS: Troponin 5 2HR Delta 7.2 ABS# (0-10)
[2021-08-15 06:31] LABS: Troponin 5 2HR 124.2 ng/L (0-15)
--- NOTE | 2021-08-15 07:50 | USCV_ITS ---
Josue Cheng Age: 50 Gender: M : 1970 Exam Date: 08/15/2021 16:01 Ordering Phys: Harry Black MD Technologist: DAQUAN Exam Location: [facility] [place] Indication: c/o chest pain since yesterday. Hx SD 1999 s/p cardiac stenting x 3. No other cardiac intervention. BP: 115 / 71 HR: 118 Rhythm: Sinus Technical Quality: Adequate MEASUREMENTS (Male / Female) Normal Values 2D ECHO LV Diastolic Diameter PLAX 4.3 cm 4.2 - 5.9 / 3.9 - 5.3 cm LV Systolic Diameter PLAX 2.8 cm IVS Diastolic Thickness 1.3 cm 0.6 - 1.0 / 0.6 - 0.9 cm IVS Systolic Thickness 1.3 cm LVPW Diastolic Thickness 1.5 cm 0.6 - 1.0 / 0.6 - 0.9 cm LVPW Systolic Thickness 1.5 cm LVOT Diameter 2.0 cm LV Ejection Fraction 2D Teich 59.0 % LV Ejection Fraction MOD 2C 51.1 % LV Ejection Fraction 2C AL 51.8 % LA Diameter 4.0 cm LA Width 3.5 cm LA Height 5.5 cm RA Width 3.9 cm RA Height 3.5 cm Aorta at Sinotubular Diameter 3.0 cm M-MODE Aortic Annulus Diameter 3.3 cm LA Ao Ratio MM 1.2 MV E Point Septal Separation 0.5 cm DOPPLER AV Peak Velocity 125.0 cm/s LVOT Peak Velocity 73.0 cm/s AV Area Cont Eq vti 1.7 cm squared AV Area Cont Eq pk 1.9 cm squared MV Peak Velocity 106.0 cm/s MV Area PHT 4.6 cm squared Mitral E to A Ratio 1.7 MV E' Velocity 43.0 cm/s Mitral E to MV E' Ratio 7.9 Mitral E to LV E' Lateral Ratio 7.9 Mitral E to LV E' Septal Ratio 8.0 TR Peak Velocity 236.3 cm/s TR Peak Gradient 22.3 mmHg TV Peak E Velocity 66.0 cm/s Right Atrial Pressure 5.0 mmHg Pulmonary Artery Systolic Pressu 27.3 mmHg PV Peak Velocity 104.0 cm/s RV Acceleration Time 0.2 s RV Ejection Time 0.3 s RV AcT/ET 0.5 FINDINGS Left Ventricle Normal LV size with borderline low ejection fraction of 51%. Moderate hypokinesia of the basal inferolateral region. Right Ventricle The right ventricle is normal in size and function. Right Atrium The right atrium is normal in size. Left Atrium The left atrium is normal in size. Mitral Valve Mild mitral valve regurgitation. Aortic Valve No gross abnormalities noted Tricuspid Valve Trace tricuspid valve regurgitation. Pulmonic Valve Pulmonic valve not well visualized. Pericardium Normal pericardium without effusion. Aorta Normal ascending aorta dimension. CONCLUSIONS Normal LV size with borderline low ejection fraction of 51%. Moderate hypokinesia of the basal inferolateral region. Mild mitral valve regurgitation. Trace tricuspid valve regurgitation. There is no pericardial effusion. There are no intracardiac masses. No previous study is available for comparison. Compared to the study from 04/19/2017, the wall motion abnormalities appear to be new Dr Placido Garza MD [facility] (Electronically Signed) Final Date: 15 August 2021 18:58 S
--- NOTE | 2021-08-15 07:50 | PM.HP ---
Providers/Chief Complaint Primary Care Provider: Davy Blanton Chief Complaint: N/V/CP History of Present Illness [place] Jack Cheng is a 50 year old male who presents to the ER with primarily left-sided chest pain that started yesterday morning with associated nausea, vomiting, and some SOB. PMH is significant for CAD with past history of MIs and 3 stents. He describes the chest pain as dull and it comes and goes with no radiation. He described it as feeling like his heart and lungs were freezing. It is relieved with nitroglycerin (but returns in a few hours) and worse when he lays down flat. He started throwing up yellow liquid last night and denies throwing up any blood. He has not eaten for the past 2 days due to lack of appetite. He has a sore throat which he states is from heaving. Troponins were elevated upon ER arrival. He denies feeling nauseated currently. He denies any chest pain currently. He reports the chest discomfort he had was similar to that attributed to his heart in the past, when he received stents. He is vaccinated against COVID and has received his booster. He had COVID back in early February 2021. Review of Systems General: Reports: 10 or more systems reviewed and unremarkable except in HPI and below Const: Reports: change in appetite; Denies: fever(s) or chills Eyes: Denies: change in vision ENMT: Reports: throat pain Card: Reports: chest pain Resp: Reports: dyspnea GI: Reports: nausea, vomiting and melena; Denies: abdominal pain : Denies: flank pain Musc: Denies: joint swelling Skin/Breast: Denies: rash Neuro: Reports: headache(s) Psych: Denies: memory loss Endo: Denies: polyuria Trevon/Lymph: Denies: easy bruising All/Imm: Denies: urticaria Medications/Allergies Home Medications Medication Instructions Recorded Confirmed Last Taken Type albuterol sulfate 90 mcg/actuation 2 puff INHALATION Q6H PRN 08/22/19 08/03/21 09/30/20 History aerosol inhaler budesonide 0.5 mg/2 mL suspension 0.5 mg INHALATION PRN 08/22/19 08/03/21 07/30/20 History for nebulization buspirone 30 mg tablet 30 mg PO BID tab 08/22/19 08/03/21 03/28/21 History ipratropium 0.5 mg-albuterol 3 mg 3 ml INHALATION QID PRN 08/22/19 08/03/21 09/30/20 History (2.5 mg base)/3 mL nebulization soln nitroglycerin 0.4 mg sublingual 0.4 mg SUBLINGUAL Q5M PRN 08/22/19 08/03/21 Unknown History tablet tamsulosin 0.4 mg capsule 0.4 mg PO BEDTIME 08/22/19 08/03/21 03/28/21 History zonisamide 100 mg capsule 400 mg PO BEDTIME cap 08/22/19 08/03/21 03/28/21 History potassium chloride 10 mEq 20 meq PO DAILY PRN 09/24/19 08/03/21 03/17/21 History tablet,extended release metoclopramide HCl [Reglan] 10 mg PO Q6H PRN #20 tab 10/17/20 08/03/21 Unknown Rx pantoprazole 40 mg PO BIDWM #60 tab 03/01/21 08/03/21 03/18/21 Rx ondansetron 4 mg PO Q6H PRN #14 tab 03/21/21 08/03/21 Unknown Rx quetiapine 50 mg PO BEDTIME 03/30/21 08/03/21 Unknown History haloperidol 2.5 mg PO TID PRN #14 tab 04/08/21 08/03/21 Unknown Rx lipase 3,000-protease 1 cap PO BID 30 Days #60 cap 04/19/21 08/03/21 Unknown Rx 9,500-amylase 15,000 unit capsule, delayed rel esomeprazole magnesium 40 mg 40 mg PO DAILY 30 Days #30 ea 04/21/21 08/03/21 Unknown Rx granules delayed release for susp clonazepam 1 mg tablet 2 mg PO BID PRN tab 07/07/21 08/03/21 Unknown History hydroxyzine HCl 50 mg tablet 50 mg PO TID 07/07/21 08/03/21 Unknown History sumatriptan succinate 50 mg tablet See Rx Instructions PO .COMPLEX 07/07/21 08/03/21 Unknown History atorvastatin 80 mg tablet 80 mg PO DAILY #90 tab 07/08/21 08/03/21 Unknown Rx clopidogrel 75 mg tablet 75 mg PO DAILY@ #90 tab 07/08/21 08/03/21 Unknown Rx aspirin 81 mg tablet,delayed 81 mg PO DAILY@09 #90 tab 07/11/21 08/03/21 Unknown Rx release isosorbide mononitrate 30 mg 30 mg PO DAILY #90 tab 07/11/21 08/03/21 Unknown Rx tablet,extended release 24 hr meloxicam 15 mg PO DAILY #14 tab 08/12/21 Unknown Rx Allergies Allergy/AdvReac Type Severity Reaction Status Date / Time meperidine [From Demerol] Allergy Severe ALGY-Hives Verified 08/15/21 03:29 Beef Containing Products Allergy ADR-Diarrhe Verified 08/15/21 03:29 a Pork/Porcine Containing Allergy ADR-Diarrhe Verified 08/15/21 03:29 Products a gabapentin AdvReac Severe ADR-Seizure Verified 08/15/21 03:29 morphine AdvReac Severe ALGY-Hives Verified 08/15/21 03:29 tramadol AdvReac Severe ADR-Seizure Verified 08/15/21 03:29 PFSH Acute PFSH: Medical History (Updated 08/15/21 @ 08:16 by Harry Black MD) Abnormal finding on urinalysis Anxiety and depression Atherosclerotic heart disease of [place] coronary artery without angina pectoris Bladder wall thickening Cervical spondylosis Chronic migraine Chronic pancreatitis Chronic shortness of breath COPD (chronic obstructive pulmonary disease) Diverticulosis Essential (primary) hypertension GERD (gastroesophageal reflux disease) H. pylori infection Heart attack Hx of coronary angiogram Medical marijuana use Mixed hyperlipidemia Osteoarthritis Pharyngitis Radiculopathy, lumbar region Seizure disorder SOB (shortness of breath) Tobacco dependency Torsion of appendix testis Total bilirubin, elevated Urethral stricture Surgical History H/O chest tube placement H/O left knee surgery H/O neck surgery H/O removal of testicle H/O right knee surgery History of appendectomy History of cholecystectomy Stented coronary artery Family History Brother Parkinson disease Cancer Diabetes Stroke Family/Other Cancer Chronic kidney disease (CKD) Suicide Grandmother CAD (coronary artery disease) Cancer Lung disease Grandfather Dementia Mother Lung disease Father Suicide Denies family history of Clotting disorder Anesthesia complication Bleeding disorder Social History Quit status (tobacco): has quit using tobacco Year quit tobacco: 2020 - 1PPD x 35 Years Smoking risk assessment/counseling performed?: Yes Alcohol intake: former Year of sobriety/quit date alcohol: 2009 Lives independently: Yes Household members: significant other Current occupational status: disabled History of recent travel: No Current gender identity: Male Vitals/I&O/Wt Last Vital Signs Temp 97.7 F 08/15/21 03:19 Pulse 68 08/15/21 06:00 Resp 25 H 08/15/21 06:00 BP 129/78 08/15/21 06:00 Pulse Ox 98 08/15/21 06:00 Weight last 48 hrs Weight 90.718 kg Physical Exam Narrative: EXAM NARRATIVE: General exam is a white male, asking for the light to be turned off, without complaints of chest discomfort currently. HEENT: Atraumatic normocephalic. Oropharynx clear. Neck is supple no lymphadenopathy or thyromegaly Cardiovascular regular rate and rhythm without murmur, no S3 or S4 Lungs a few bilateral expiratory wheezes are noted. No crackles. Abdomen is soft. Positive bowel sounds. He indicates some tenderness all over , somewhat subjective, which she reports started after he vomited. exam is deferred Extremities no cyanosis clubbing or edema, cap refill brisk Skin no rash Neuro no focal deficits. Data : 08/15/21 04:10 08/15/21 04:10 Other data: EKG demonstrates sinus rhythm, normal axis, ST T wave depression V4 through 6, and inferiorly. Flattened T waves were noted on previous EKGs. Chest x-ray no infiltrate, probable COPD Calcium 8.8, LFTs normal, troponin 117 with repeat 124 lipase 29 Rapid COVID-negative A&P Assessment and plan (1) Chest pain: Patient with significant chest discomfort on arrival Troponin is elevated, with concern of non-ST elevation myocardial infarction Full dose anticoagulation has been given Continue patient's home Plavix aspirin and statin. It does not appear he is on a beta-virgilio. He is on nitrates as well. Cardiology consultation. Consideration of nuclear stress test or angiogram Check echocardiogram Complete serial troponins Status: Acute (2) Vomiting: This could be related to angina. Patient also has a history of cyclic vomiting. Nausea control. Avoidance of THC. Status: Acute (3) COPD (chronic obstructive pulmonary disease): No evidence of exacerbation currently DuoNeb as needed Status: Acute Qualifiers: COPD type: unspecified COPD Qualified Code(s): J44.9 - Chronic obstructive pulmonary disease, unspecified (4) Atherosclerotic heart disease of [place] coronary artery without angina pectoris: See above notation under chest discomfort Status: Acute Qualifiers: [place] vs. transplanted heart: [place] heart Qualified Code(s): I25.10 - Atherosclerotic heart disease of [place] coronary artery without angina pectoris Attestations Medical Necessity Statement*: Will need less than 2 midnight stay for evaluation of chest discomfort. Time Spent in Patient Care: Greater than 35 minutes Coding Level of Care Code Acute Market Sales Manager for [facility] Fwd Diagnoses Chest pain R07.9 Vomiting R11.10 COPD (chronic obstructive pulmonary disease) J44.9 COPD type: unspecified COPD Atherosclerotic heart disease of [place] coronary artery without angina pectoris I25.10 [place] vs. transplanted heart: [place] heart
--- NOTE | 2021-08-15 08:02 | PC.NURSE ---
patient placed on continuous bedside cardiac, BP and O2 monitor.
--- NOTE | 2021-08-15 09:23 | ECG_ITS ---
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
[2021-08-15 11:05] LABS: Troponin 5 6HR 144.9 ng/L (0-15)
[2021-08-15 11:06] LABS: Troponin 5 6HR Delta 27.9 ng/L (0-12)
--- NOTE | 2021-08-15 12:15 | P.CONIM_ITS ---
Providers/Reason For Consult Consulting Physician/Specialty*: Cardiology Reason for Consult*: Non-ST elevation ME Attending Physician: Harry Black MD Primary Care Provider: Davy Blanton History of Present Illness History of Present Illness Josue Cheng is a 50 year old male past medical history significant for hypertension hyperlipidemia and PCI x2 last as per patient for the past few days was struggling with shortness of breath and chest pain last night he came in with nausea vomiting and chest pain not relieved with nitroglycerin. He was ruled in for non-ST elevation ME it is the reason we have been asked to come and see him. When I saw the patient he says his pain is much better improved. EKG shows inferolateral ST depression which was mild and has not changed from prior EKGs, cardiac markers troponin T was 114 at its peak. Patient has been anticoagulated we will continue clopidogrel. Medications/Allergies Home Medications Medication Instructions Recorded Confirmed Last Taken Type albuterol sulfate 90 mcg/actuation 2 puff INHALATION Q6H PRN 08/22/19 08/15/21 08/13/21 History aerosol inhaler budesonide 0.5 mg/2 mL suspension 0.5 mg INHALATION Q6H PRN 08/22/19 08/15/21 08/13/21 History for nebulization buspirone 30 mg tablet 30 mg PO BID tab 08/22/19 08/15/21 08/13/21 History ipratropium 0.5 mg-albuterol 3 mg 3 ml INHALATION QID PRN 08/22/19 08/15/21 09/30/20 History (2.5 mg base)/3 mL nebulization soln nitroglycerin 0.4 mg sublingual 0.4 mg SUBLINGUAL Q5M PRN 08/22/19 08/15/21 Unknown History tablet tamsulosin 0.4 mg capsule 0.4 mg PO BEDTIME 08/22/19 08/15/21 08/13/21 History zonisamide 100 mg capsule 200 mg PO BID cap 08/22/19 08/15/21 08/13/21 History pantoprazole 40 mg PO BIDWM #60 tab 03/01/21 08/15/21 08/13/21 Rx ondansetron 4 mg PO Q6H PRN #14 tab 03/21/21 08/15/21 Unknown Rx quetiapine 50 mg PO BEDTIME 03/30/21 08/15/21 08/13/21 History lipase 3,000-protease 1 cap PO BID 30 Days #60 cap 04/19/21 08/15/21 08/13/21 Rx 9,500-amylase 15,000 unit capsule, delayed rel clonazepam 1 mg tablet 2 mg PO BID PRN tab 07/07/21 08/15/21 08/13/21 History hydroxyzine HCl 50 mg tablet 50 mg PO TID PRN 07/07/21 08/15/21 Unknown History sumatriptan succinate 50 mg tablet See Rx Instructions PO .COMPLEX 07/07/21 08/15/21 Unknown History clopidogrel 75 mg tablet 75 mg PO DAILY@09 #90 tab 07/08/21 08/15/21 08/13/21 Rx aspirin 81 mg tablet,delayed 81 mg PO DAILY@09 #90 tab 07/11/21 08/15/21 08/13/21 Rx release isosorbide mononitrate 30 mg 30 mg PO DAILY #90 tab 07/11/21 08/15/21 08/13/21 Rx tablet,extended release 24 hr meloxicam 15 mg PO DAILY #14 tab 08/12/21 08/15/21 08/13/21 Rx atorvastatin 80 mg PO DAILY 08/15/21 08/15/21 08/13/21 History citalopram 20 mg PO BEDTIME 08/15/21 08/15/21 08/13/21 History Allergies Allergy/AdvReac Type Severity Reaction Status Date / Time meperidine [From Demerol] Allergy Severe ALGY-Hives Verified 08/15/21 12:09 Beef Containing Products Allergy ADR-Diarrhe Verified 08/15/21 12:09 a Pork/Porcine Containing Allergy ADR-Diarrhe Verified 08/15/21 12:09 Products a gabapentin AdvReac Severe ADR-Seizure Verified 08/15/21 12:09 morphine AdvReac Severe ALGY-Hives Verified 08/15/21 12:09 tramadol AdvReac Severe ADR-Seizure Verified 08/15/21 12:09 PFSH Acute PFSH: Medical History (Updated 08/15/21 @ 18:08 by Roly Sims MD) Abnormal finding on urinalysis Anxiety and depression Atherosclerotic heart disease of [place] coronary artery without angina pectoris Bladder wall thickening Cervical spondylosis Chronic migraine Chronic pancreatitis Chronic shortness of breath COPD (chronic obstructive pulmonary disease) Diverticulosis Essential (primary) hypertension GERD (gastroesophageal reflux disease) H. pylori infection Heart attack Hx of coronary angiogram Medical marijuana use Mixed hyperlipidemia Osteoarthritis Pharyngitis Radiculopathy, lumbar region Seizure disorder SOB (shortness of breath) Tobacco dependency Torsion of appendix testis Total bilirubin, elevated Urethral stricture Surgical History H/O chest tube placement H/O left knee surgery H/O neck surgery H/O removal of testicle H/O right knee surgery History of appendectomy History of cholecystectomy Stented coronary artery Family History Brother Parkinson disease Cancer Diabetes Stroke Family/Other Cancer Chronic kidney disease (CKD) Suicide Grandmother CAD (coronary artery disease) Cancer Lung disease Grandfather Dementia Mother Lung disease Father Suicide Denies family history of Clotting disorder Anesthesia complication Bleeding disorder Social History Quit status (tobacco): has quit using tobacco Year quit tobacco: 2019 - 1PPD x 35 Years Smoking risk assessment/counseling performed?: Yes Alcohol intake: former Year of sobriety/quit date alcohol: 2009 Lives independently: Yes Household members: significant other Current occupational status: disabled History of recent travel: No Current gender identity: Male Vitals/I&O/Wt Last Vital Signs Temp 97.7 F 08/15/21 03:19 Pulse 70 08/15/21 10:19 Resp 29 H 08/15/21 10:19 BP 135/90 08/15/21 10:19 Pulse Ox 97 08/15/21 08:38 Weight last 48 hrs Weight 200 lb Physical Exam Narrative: EXAM NARRATIVE: GENERAL: Patient is alert, awake and oriented x3. NECK: No jugular vein distension. HEENT: No cyanosis. No icterus. No pallor. HEART: Regular S1 and S2. No murmur, rub or gallop. LUNGS: Clear to auscultate bilaterally. ABDOMEN: Soft, nontender and nondistended. Positive bowel sounds. No guarding, rebound or tenderness. CENTRAL NERVOUS SYSTEM: Grossly nonfocal. A&P Assessment and plan (1) NSTEMI (non-ST elevated myocardial infarction): Continue aspirin statin beta-virgilio clopidogrel, continue Lovenox. We will proceed with left heart cath tomorrow morning. I have explained patient all risk benefit and alternative for the procedure. He would like to proceed with it it. Status: Acute (2) Essential (primary) hypertension: Well-controlled continue medicine Status: Acute (3) Mixed hyperlipidemia: Continue statin Status: Acute Consult Attestations Medical Necessity Statement: Patient require continuation hospitalization for above defined care Coding Level of Care Code New Pt Acute Dolly Pusher for g Fwd Patient Type New History Detailed Exam Detailed Medical Decision Making Moderate Complexity Diagnoses NSTEMI (non-ST elevated myocardial infarction) I21.4 Essential (primary) hypertension I10 Mixed hyperlipidemia E78.2
--- NOTE | 2021-08-15 15:55 | PC.NURSE ---
Patient resting in bed. Pt still on continuous bedside cardiac, O2 and BP monitor.
[2021-08-15 16:53] LABS: Thyroid Stimulating Hormone 1.23 uIU/mL (0.27-4.20)
--- NOTE | 2021-08-15 16:55 | PC.NURSE ---
Patient girlfriend updated on his situation. Pt to be taken to Cardiac step down unit after ECHO
[2021-08-15] MEDS: pantoprazole DR 40 mg Tablet PO (18:08)
[2021-08-15] MEDS: sodium chloride 0.9% 1,000 ML 75 ML IV (18:13)
[2021-08-15] MEDS: BuSPIRONE 10 mg Tablet 30 MG PO (20:13)
[2021-08-15] MEDS: citalopram 20 mg Tablet PO (20:13)
[2021-08-15] MEDS: zonisamide 100 MG Capsule 200 MG PO (20:14)
[2021-08-15] MEDS: quetiapine 100 mg Tablet 50 MG PO (20:14)
[2021-08-15] MEDS: tamsulosin 0.4 mg Capsule PO (20:14)
[2021-08-15] MEDS: nicotine 21 mg Patch 1 PATCH TRANSDERMA (20:14)
[2021-08-16] VITALS (23 sets, daily range): BP systolic 102–154; BP diastolic 74–99; PULSE 63–91; RESP 17–26; TEMP 36.6; O2SAT 93–97
--- NOTE | 2021-08-16 02:16 | PC.NURSE ---
Upon entering patient's room at beginning of shift, patient becomes angry with nurse and states Look at this, no one came and got my dinner tray, my urinal is full, my sheets are soaked because I have to use this damn urinal, and I am out of ice water. Patient's dinner tray removed, urinal emptied, complete linen change provided, and ice water provided. Throughout shift patient has been rounded on frequently by nurse and VEHICLE DETAILER and RT, but continues to complain that no one is checking on him and no one is emptying his urinal. Urinal has been emptied multiple times (please see intake and output charting). Patient pulled telemetry wires, pulse oximetry wire, gown, and Bipap off. Patient refusing to have gown or Bipap put back on, however telemetry and pulse ox wires were replaced. Patient has been rounded on frequently throughout shift and has bed alarm set. Patient has been oriented to his call light and has call light within reach.
[2021-08-16] MEDS: sodium chloride 0.9% 1,000 ML 75 ML IV ×2 (03:18→18:52)
[2021-08-16] MEDS: ondansetron 2 mg/ML SDV 2 mL 4 MG IVP (03:18)
[2021-08-16] MEDS: enoxaparin 100 mg/mL Syringe 90 MG SUBCUT ×2 (03:18→16:37)
[2021-08-16 03:29] LABS: Basophils % 0.2 %; Eosinophils % 0.2 %; Hematocrit 39.2 % (42.0-52.0); Hemoglobin 13.1 g/dL (11.7-16.6); Lymphocytes % 19.1 %; Mean Corpuscular HGB Conc 33.4 g/dL (30.0-36.0); Mean Corpuscular Hemoglobin 32.6 pg (28.0-34.0); Mean Corpuscular Volume 97.5 fl (80-94); Mean Platelet Volume 9.3 fL (7.4-10.4); Monocytes # 0.9 10^3/uL (0.2-0.9); Monocytes % 8.7 %; Neutrophils # 7.57 10^3/uL (1.8-7.7); Neutrophils % 71.5 %; Nucleated Red Blood Cells % 0 %; Platelet Count 282 10^3/cmm (130-400); Red Blood Count 4.02 10^6/uL (4.1-5.3); Red Cell Distribution Width 12.3 % (12.1-15.1); White Blood Count 10.6 10^3/uL (4.0-10.0)
[2021-08-16 03:54] LABS: Alanine Aminotransferase 15 U/L (0-41); Albumin Level 4.2 g/dL (3.5-5.2); Alkaline Phosphatase 69 IU/L (40-130); Anion Gap 17.3 (5-19); Aspartate Amino Transferase 35 U/L (0-40); Blood Urea Nitrogen 9 mg/dL (6-20); Calcium 8.5 mg/dL (8.5-10.5); Carbon Dioxide 17 mmol/L (22-29); Chloride 105 mmol/L (98-107); Globulin 2.2 g/dL (1.3-4.6); Glomerular Filtration Rate 143.2 mL/min (90-130); Glucose 133 mg/dL (65-115); Magnesium 1.8 mg/dL (1.7-2.3); Osmolality Calculated 283 mOsm/kg (285-295); Potassium 3.3 mmol/L (3.5-5.1); Sodium 136 mmol/L (136-145); Total Bilirubin 0.8 mg/dL (0.15-1.2); Total Protein 6.4 g/dL (6.6-8.7)
[2021-08-16] MEDS: diphenhydrAMINE 50 mg Capsule PO (07:08)
[2021-08-16] MEDS: potassium chloride ER 20 mEq Tablet 40 MEQ PO (07:17)
[2021-08-16] MEDS: budesonide 0.5 mg/2 mL Neb INHALATION ×2 (07:43→19:44)
[2021-08-16] MEDS: ipratropium-albuterol 3 mL Neb INHALATION (07:43)
--- NOTE | 2021-08-16 08:25 | PM.PN ---
Subjective Subjective: Interval history: Blevins reports no chest discomfort last night. Perhaps a little bit of nausea. Ready for his angiogram this morning. Medications: Reviewed: Yes Vitals/I&O/Wt Last Vital Signs Temp 98 F 08/16/21 03:31 Pulse 82 08/16/21 07:45 Resp 17 08/16/21 07:45 BP 137/90 08/16/21 03:31 Pulse Ox 95 08/16/21 07:45 08/15/21 08/16/21 08/16/21 22:59 06:59 14:59 Intake Total 1500 / 1500 Balance 1500 / 1500 Weight last 48 hrs Weight 88.587 kg Weight 90.718 kg Physical Exam Narrative: EXAM NARRATIVE: General exam no distress Neck is supple no lymphadenopathy or thyromegaly Cardiovascular regular rate and rhythm without murmur, no S3 or S4 Lungs improved aeration. No significant wheezing currently. Abdomen is soft. Positive bowel sounds. No tenderness Extremities no cyanosis clubbing or edema, cap refill brisk Data : 08/16/21 03:12 08/16/21 03:12 A&P Assessment and plan (1) Chest pain: Patient with significant chest discomfort on arrival Troponin is elevated, with concern of non-ST elevation myocardial infarction Full dose anticoagulation has been given Continue patient's home Plavix aspirin and statin. It does not appear he is on a beta-virgilio. He is on nitrates as well. Cardiology consultation appreciated. Angiogram today Echocardiogram demonstrated EF of around 50%, moderate hypokinesis inferior lateral, mild mitral valve regurgitation Status: Acute (2) Vomiting: This could be related to angina. Patient also has a history of cyclic vomiting. Nausea control. Avoidance of THC. Status: Acute (3) COPD (chronic obstructive pulmonary disease): No evidence of exacerbation currently DuoNeb as needed Status: Acute Qualifiers: COPD type: unspecified COPD Qualified Code(s): J44.9 - Chronic obstructive pulmonary disease, unspecified (4) Atherosclerotic heart disease of [place] coronary artery without angina pectoris: See above notation under chest discomfort Status: Acute Qualifiers: [place] vs. transplanted heart: [place] heart Qualified Code(s): I25.10 - Atherosclerotic heart disease of [place] coronary artery without angina pectoris Attestations Medical Necessity Statement*: If receives intervention, will need to stay till tomorrow for close monitoring. If no intervention potential discharge today. Coding Level of Care Code Acute Patient Financial Services Specialist for [facility] Fwd Diagnoses Chest pain R07.9 Vomiting R11.10 COPD (chronic obstructive pulmonary disease) J44.9 COPD type: unspecified COPD Atherosclerotic heart disease of [place] coronary artery without angina pectoris I25.10 [place] vs. transplanted heart: [place] heart
--- NOTE | 2021-08-16 08:30 | XACV_ITS ---
Exam Room: [facility] Ht: 170 cm Wt: 91 kg BSA: 2.10 m2 Gender: Male : 1970 Any Known Allergies: Demerol Exam Priority: Routine Procedure(s): Procedure Description: Diagnostic procedure Procedure Description: PCI procedure Procedure Description: Drug Eluting Coronary Stent Procedure Description: PTCA Procedure Description: Miscellaneous Procedure Description: ACT Procedure Description: Coronary Angiography Bethany JOSE; Diagnostic Cath Status: Elective Diagnostic Findings * Left Main has no disease. * Circumflex has no disease. * Mid Left Anterior Descending: minimal 30% stenosis, GABBY: 3 flow. * Mid Right Coronary Artery: subtotal occlusion, GABBY: 3 flow. * Coronary angiography shows right dominance. PCI Status: Urgent PCI Indication: NSTE - ACS Interventional Findings * Mid Right Coronary Artery: 99% stenosis treated with a MDT NC EUPHORA RX [id number] BALLOON, MDT Michel DANE 3.5X18 GARRETT, and MDT NC EUPHORA RX [id number] BALLOON. 0% residual stenosis, GABBY: 3 flow. PCI for Multi-vessel Disease: Yes Conclusions 1. There is subtotal occlusion coronary artery disease with two vessel disease. 2. Mid Right Coronary Artery was treated with a Balloon, Drug Eluting Stent, and Balloon. Recommendations * 1-Return to inpatient for close monitoring and routine cath care 2-Risk factor modification for secondary prevention 3-Statin and aspirin 81 mg life--long, if tolerated 4-Continue Plavix 75mg p.o. daily for at least one year. We will assess at the end of one year again to continue if further or not 5-Continue optimal medical management 6-Follow up with Dr. Sims in four weeks and your primary care in 10 days. Interventional RX Recommendation: PCI w/o planned CABG Diagnostic RX Recommendation: PCI w/o planned CABG Pressures Phase:Rest AO : 92 / 57 ( 78 ) @ 7:05:00 AM 88 / 68 ( 79 ) @ 7:07:00 AM 89 / 68 ( 79 ) @ 7:09:00 AM 105 / 60 ( 79 ) @ 7:15:00 AM 83 / 61 ( 72 ) @ 7:22:00 AM 72 / 34 ( 45 ) @ 7:25:00 AM 116 / 86 ( 100 ) @ 7:33:00 AM Clinical Evaluation EBL: 5mL-10mL Procedural Details Procedure Consent Obtained. Pre-Procedure Time Out. Identified patient by full name and date of as verbalized by the patient/guarantor. Does the consent match the physician's order: Yes. Accurate & Complete Informed Consent: Yes. Inpatient/Outpatient History & Physical on Chart: Yes. If H&P is completed, is and addenduem needed: No; If yes, is the addendum complete: N/A. Visualize and Verify Site with Patient/Guarantor: N/A. Relevant Radiology Images available: Yes. Pre-op teaching completed and patient verbalized understanding. The risks, benefits, and alternatives of sedation and/or procedure were discussed by physician. The patient agrees to continue. Procedure started. [facility] Clinical Fraility Score: 3: Managing Well. 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 Chest Pain Symptom Assessment: Atypical Angina. Correct patient, site and procedure confirmed by cath team. Current diagnosis: NSTEMI. Current Diagnosis : NSTEMI. PERRLA. Strong, equal hand opticianry teacher bilaterally. Lungs clear x 5 lobes. Baseline sample Acquired. HR: 0 BPM. Procedure started. IV Site on Arrival: 20 gauge in the left anticubital. IV Fluids: 0.9% NaCl at KVO. 0 mL infused prior to laborer wood preserving plant. Pre Procedural Pulses: bilateral dorsalis pedis was 3+. Pre Procedural Pulses: bilateral posterior tibial was 3+. Pre Procedural Pulses: bilateral femoral was 3+. Oxygen started at 2liters/min via nasal canula. right groin was prepped with chloroprep then draped in the usual sterile fashion. right radial was prepped with chloroprep then draped in the usual sterile fashion. Physician notified. Baseline sample Acquired. HR: [address] Vivas arrived to scrub in to assist Dr. Sims. Chad Vargas scrubbing. Dr. Vivas scrubbed in. Immediate Pre-Procedure Time Out. Correct Patient: Yes; Correct Procedure: Yes; Correct Site: Yes; Correct Patient Position: Yes; Correct Supplies: Yes; Dried Flammable Prep: Yes; Blood Products Available: N/A;. Baseline sample Acquired. HR: [address] Sims arrived. Lidocaine 1% infiltrated to the right radial. Arterial access obtained. A 5 yi TIG catheter in over wire. Dr. Sims scrubbed in. Multiple views taken of right coronary artery. Catheter redirected to the LCA. Multiple views taken of left coronary artery. Catheter removed over the exchange wire. Physician review of cine films. 6 yi JR 4 guide catheter was inserted over the wire. Runthrough guidewire was advanced through the guide catheter to lesion in the mid RCA. Inflation number : 1 A MDT NC EUPHORA RX [id number] BALLOON was prepped and advanced across the Mid RCA , then inflated to 14 TEDDY for 0:14 seconds. Balloon out. Results checked. Inflation Number : 2 A MDT R DANE 3.5X18 GARRETT -Lot Number# _[id number] EXP: 04/12/2024 was prepped and advanced across the Mid RCA. The stent was deployed at 14 TEDDY for 0:27 seconds. Stent balloon out over wire. Inflation number : 3 A MDT NC EUPHORA RX [id number] BALLOON was prepped and advanced across the Mid RCA , then inflated to 14 TEDDY for 0:20 seconds. Inflation number: 5 The MDT NC EUPHORA RX [id number] BALLOON was reinflated across the Mid RCA, to 14 TEDDY for 0:22 seconds. Balloon out. Results checked. ACT drawn. Results 228 seconds. Therapeutic limits - pre-heparin administration 90-150 seconds and monitoring heparin during a vascular procedure >250 seconds. Guide catheter out. A TR Band was successful obtaining hemostatsis at the Right Radial artery insertion site. Post Procedure: Pulses reassessed and unchanged. PERRLA. Strong, equal hand opticianry teacher bilaterally. No VTE prophylaxis required. Total IV fluids: 75 mL. Medication's Wasted: Lidocaine 1% = 10 mL. Medication's Wasted: Nitro = 49.4 mg. Medication's Wasted: Heparin = 4000 UNITS. Contrast type used: Visipaque 320 mgI/mL, 500 mL bottle. Complications: None. Estimated blood loss: 5mL-10mL. Responsiveness - Normal response to verbal stimuli; alert and oriented, PERRLA. Airway - Unaffected, no intervention required; spontaneous ventilation. Circulation: W/N/L, pulses unchanged. Nausea/Vomiting: No. Procedure completed. Vital chart was stopped. Patient transferred by wheelchair to CPRU. Access Site Site: Right Radial artery Sheath Size: 6 Fr Hemostasis Method: TR Band Hemostasis Success: Successful Procedure Medications Start: 8:44 AM Stop: 8:44 AM Medication: Versed Amount: 1 mg Route: I.V. Start: 8:44 AM Stop: 8:44 AM Medication: Fentanyl Amount: 50 mcg Route: I.V. Start: 8:47 AM Stop: 8:47 AM Medication: Versed Amount: 1 mg Route: I.V. Start: 8:47 AM Stop: 8:47 AM Medication: Fentanyl Amount: 50 mcg Route: I.V. Start: 8:53 AM Stop: 8:53 AM Medication: Fentanyl Amount: 50 mcg Route: I.V. Start: 9:03 AM Stop: 9:03 AM Medication: Nitrogylcerin Amount: 200 mcg Route: I.A. Start: 9:08 AM Stop: 9:08 AM Medication: Heparin Amount: 5000 units Route: I.V. Start: 9:13 AM Stop: 9:13 AM Medication: Heparin Amount: 5000 units Route: I.V. Start: 9:14 AM Stop: 9:14 AM Medication: Versed Amount: 1 mg Route: I.V. Start: 9:14 AM Stop: 9:14 AM Medication: Fentanyl Amount: 50 mcg Route: I.V. Start: 9:22 AM Stop: 9:22 AM Medication: Versed Amount: 1 mg Route: I.V. Start: 9:29 AM Stop: 9:29 AM Medication: Fentanyl Amount: 50 mcg Route: I.V. Start: 9:35 AM Stop: 9:35 AM Medication: Plavix Amount: 300 mg Route: P.O. Start: 9:36 AM Stop: 9:36 AM Medication: Nitrogylcerin Amount: 400 mcg Route: I.A. Start: 9:38 AM Stop: 9:38 AM Medication: Heparin Amount: 2000 units Route: I.V. I, the attending physician, have reviewed and verified all procedure medications. Yes, all medications given per verbal order History/Risk Factors Hypertension: Yes Dyslipidemia: Yes Peripheral Arterial Disease (PAD): No Myocardial Infarction (HI): No Obesity: Yes Renal Disease: No Prior Interventions PCI: Yes CABG: No Valve Surgery: No Report Signatures Finalized by Roly Sims MD on 08/30/2021 07:08 PM
--- NOTE | 2021-08-16 09:03 | W.PM.OPSUD ---
Surgery/Procedure H&P Update DATE OF PROCEDURE: August 16, 2021 DATE H&P PERFORMED: 08/15/21 H&P UPDATE INFORMATION: I have reviewed H&P completed within last 30 days, I have examined patient prior to procedure and No changes to prior documentation PREOP DIAGNOSIS: Non-ST elevation HI PLANNED PROCEDURE: Operation Date: 08/16/21 08:40 Proposed Procedures p Cardiac Catheterization(Left) - Roly Sims MD PATIENT REASSESSED PRIOR TO SEDATION, WITH NO CHANGE NOTED: Yes PHYSICAL EXAM: alert, oriented x 3 and clear to auscultation bilaterally AIRWAY EVAL/ANESTHESIA PLAN: ASA II and Risks, benefits & alternatives of sedation and/or procedure discussed
--- NOTE | 2021-08-16 09:49 | PM.PN ---
Subjective Subjective: Interval history: Status post PCI to mid RCA for in-stent restenosis which was significant and more than 90%. It was treated with balloon angioplasty and drug-eluting stent. Good angiographic result with GABBY-3 flow was achieved. Medications: Reviewed: Yes Vitals/I&O/Wt Last Vital Signs Temp 98 F 08/16/21 03:31 Pulse 82 08/16/21 07:45 Resp 17 08/16/21 07:45 BP 137/90 08/16/21 03:31 Pulse Ox 95 08/16/21 07:45 08/15/21 08/16/21 08/16/21 22:59 06:59 14:59 Intake Total 1500 / 1500 Balance 1500 / 1500 Weight last 48 hrs Weight 195 lb 4.8 oz Weight 200 lb Physical Exam Narrative: EXAM NARRATIVE: GENERAL: Patient is alert, awake and oriented x3. NECK: No jugular vein distension. HEENT: No cyanosis. No icterus. No pallor. HEART: Regular S1 and S2. No murmur, rub or gallop. LUNGS: Clear to auscultate bilaterally. ABDOMEN: Soft, nontender and nondistended. Positive bowel sounds. No guarding, rebound or tenderness. CENTRAL NERVOUS SYSTEM: Grossly nonfocal. Const: COMMON NORMALS: alert Resp: COMMON NORMALS: clear to auscultation bilaterally AUSCULTATION: clear to auscultation bilaterally Neuro: SENSORIUM/ORIENTATION: Yes alert Data : 08/16/21 03:12 08/16/21 03:12 A&P Assessment and plan (1) NSTEMI (non-ST elevated myocardial infarction): For significant 90% in-stent restenosis in mid RCA patient received drug-eluting stent postdilated with noncompliant balloon. Good angiographic result was achieved. Patient is reloaded with 300 mg of Plavix. Continue aspirin statin and clopidogrel Status: Acute (2) Essential (primary) hypertension: Well-controlled Status: Acute (3) Mixed hyperlipidemia: Continue statin. Status: Acute Attestations Medical Necessity Statement*: Patient will be monitored post PCI. 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
--- NOTE | 2021-08-16 12:48 | PC.NURSE ---
Patient had oozing from TR band. Reinstilled 3 ml air.
--- NOTE | 2021-08-16 15:37 | PC.NURSE ---
TR band removed by deflating cuff 2-3 ml over 2 hours. Site cleaned with alcohol pads, 2x2 gauze with opsite covering. No bleeding or hematoma.
[2021-08-16] MEDS: nicotine 21 mg Patch 1 PATCH TRANSDERMA (16:54)
[2021-08-16] MEDS: pantoprazole DR 40 mg Tablet PO (16:56)
[2021-08-16] MEDS: zonisamide 100 MG Capsule 200 MG PO (19:36)
[2021-08-16] MEDS: CLONazepam 1 mg Tablet 2 MG PO (19:37)
[2021-08-16] MEDS: tamsulosin 0.4 mg Capsule PO (19:37)
[2021-08-16] MEDS: BuSPIRONE 10 mg Tablet 30 MG PO (19:37)
[2021-08-16] MEDS: quetiapine 100 mg Tablet 50 MG PO (19:37)
[2021-08-16] MEDS: citalopram 20 mg Tablet PO (19:37)
[2021-08-16] MEDS: sodium chloride 0.9% 1,000 ML 100 ML IV (19:38)
[2021-08-17] VITALS (7 sets, daily range): BP systolic 110–147; BP diastolic 79–82; PULSE 66–92; RESP 16–22; TEMP 36.6–36.9; O2SAT 95–97
[2021-08-17 03:55] LABS: Basophils # 0.1 10^3/uL (0.0-0.1); Basophils % 0.8 %; Eosinophils # 0.1 10^3/uL (0.0-0.8); Eosinophils % 1.7 %; Hematocrit 36.3 % (42.0-52.0); Hemoglobin 12.1 g/dL (11.7-16.6); Lymphocytes # 2.5 10^3/uL (0.8-4.8); Lymphocytes % 41.1 %; Mean Corpuscular HGB Conc 33.3 g/dL (30.0-36.0); Mean Corpuscular Hemoglobin 32.8 pg (28.0-34.0); Mean Corpuscular Volume 98.4 fl (80-94); Mean Platelet Volume 9.4 fL (7.4-10.4); Monocytes # 0.5 10^3/uL (0.2-0.9); Monocytes % 7.9 %; Neutrophils # 2.91 10^3/uL (1.8-7.7); Neutrophils % 48.2 %; Nucleated Red Blood Cells % 0 %; Platelet Count 238 10^3/cmm (130-400); Red Blood Count 3.69 10^6/uL (4.1-5.3); Red Cell Distribution Width 12.4 % (12.1-15.1)
[2021-08-17 04:10] LABS: Anion Gap 15.4 (5-19); Blood Urea Nitrogen 11 mg/dL (6-20); Carbon Dioxide 17 mmol/L (22-29); Chloride 107 mmol/L (98-107); Glomerular Filtration Rate 119.9 mL/min (90-130); Glucose 85 mg/dL (65-115); Osmolality Calculated 281 mOsm/kg (285-295); Potassium 3.4 mmol/L (3.5-5.1); Sodium 136 mmol/L (136-145)
[2021-08-17] MEDS: budesonide 0.5 mg/2 mL Neb INHALATION (07:48)
[2021-08-17] MEDS: potassium chloride ER 20 mEq Tablet 40 MEQ PO (07:59)
[2021-08-17] MEDS: zonisamide 100 MG Capsule 200 MG PO (08:00)
[2021-08-17] MEDS: BuSPIRONE 10 mg Tablet 30 MG PO (08:01)
[2021-08-17] MEDS: atorvastatin 40 mg Tablet 80 MG PO (08:01)
[2021-08-17] MEDS: CLONazepam 1 mg Tablet 2 MG PO (08:01)
[2021-08-17] MEDS: clopidogrel 75 mg Tablet PO (08:01)
[2021-08-17] MEDS: lipase-protease-amylase Capsule 1 EACH PO (08:01)
[2021-08-17] MEDS: pantoprazole DR 40 mg Tablet PO (08:02)
[2021-08-17] MEDS: isosorbide mononitrate ER 30 mg Tablet PO (08:02)
[2021-08-17] MEDS: aspirin 81 mg EC Tablet PO (08:02)
--- NOTE | 2021-08-17 08:56 | PM.DCS ---
Discharge Providers Date of Admission: 08/16/21 11:16 Date of Discharge: August 17, 2021 Attending Provider at Admission: Harry Black MD Attending Provider at Discharge: Harry Black MD Primary Care Provider: Davy Oglesbyno Diagnoses at Discharge Discharge Diagnosis (1) NSTEMI (non-ST elevated myocardial infarction): Status: Acute (2) Essential (primary) hypertension: Status: Acute (3) Mixed hyperlipidemia: Status: Acute Reason for Visit Reason for Visit: N/V/CP Hospital Course Hospital Course [place] presented to the hospital with chest discomfort. He also had some nausea. Troponin was significantly elevated. EKG demonstrated some ST depression. Cardiology was consulted. Plavix, aspirin, statin, Lovenox, nitrate was continued. Echocardiogram demonstrated slightly depressed EF of 50%. Angiogram was performed August 16, demonstrating a mid RCA stenosis, in-stent. This was treated with balloon angioplasty and drug-eluting stent with good result. The following day he is chest discomfort free. No problems with angiogram site. It was thought he could go home. Toprol was added to his regimen. Physical Exam Narrative: EXAM NARRATIVE: General exam no distress Neck is supple Cardiovascular regular rate and rhythm Lungs clear Abdomen is soft Extremities no cyanosis clubbing or edema Angiogram site right wrist without significant hematoma. Full function of hand. Discharge Data Data Completed and Pending: Completed Studies During Hospitalization Category Date Time Status XR chest 1V lawrence ble [id number] Stat Exams 08/15/21 03:22 Completed CV. echo complete * [id number] Routine Ultrasound 08/15/21 07:50 Completed Pending at discharge Category Date Time Status CERTIFIED CREDIT COUNSELOR request for service Routin e Exams 08/16/21 08:30 Taken Labs from last 24 hours 08/17/21 08/17/21 03:08 03:08 WBC 6.0 RBC 3.69 L Hgb 12.1 Hct 36.3 L MCV 98.4 H MCH 32.8 MCHC 33.3 RDW 12.4 Plt Count 238 MPV 9.4 Neut % (Auto) 48.2 Lymph % (Auto) 41.1 Wilkinson % (Auto) 7.9 Eos % (Auto) 1.7 Baso % (Auto) 0.8 Neut # (Auto) 2.91 Lymph # (Auto) 2.5 Wilkinson # (Auto) 0.5 Eos # (Auto) 0.1 Baso # (Auto) 0.1 Nucleated RBC % (a uto) 0 Nucleated RBCs # 0.0 Sodium 136 Potassium 3.4 L Chloride 107 Carbon Dioxide 17 L Anion Gap 15.4 BUN 11 Creatinine 0.7 GFR Calculation 119.9 Glucose 85 Calculated Osmolal ity 281 L Calcium 8.0 L Vitals: Last Vital Signs Temp 98.4 F 08/17/21 08:00 Pulse 78 08/17/21 08:00 Resp 18 08/17/21 07:53 BP 147/82 08/17/21 08:00 Pulse Ox 95 08/17/21 08:00 Discharge Plan Discharge Patient Disposition: Home Condition: Stable Prescriptions: New metoprolol succinate 25 mg Tablet Extended Release 24 Hr 12.5 mg PO DAILY Qty: 15 RF: 0 Continued buspirone 30 mg tablet 30 mg PO BID RF: 0 zonisamide 100 mg capsule 200 mg PO BID RF: 0 tamsulosin 0.4 mg capsule 0.4 mg PO BEDTIME RF: 0 nitroglycerin [Nitrostat] 0.4 mg tablet, sublingual 0.4 mg SUBLINGUAL Q5M PRN (Reason: Chest Pain) RF: 0 albuterol sulfate [ProAir HFA] 90 mcg/actuation HFA aerosol inhaler 2 puff INHALATION Q6H PRN (Reason: Shortness Of Breath) RF: 0 budesonide [Pulmicort] 0.5 mg/2 mL suspension for nebulization 0.5 mg INHALATION Q6H PRN (Reason: Shortness Of Breath) RF: 0 ipratropium-albuterol 0.5 mg-3 mg(2.5 mg base)/3 mL solution for nebulization 3 ml INHALATION QID PRN (Reason: Shortness Of Breath) RF: 0 clonazepam 1 mg tablet 2 mg PO BID PRN (Reason: Anxiety) RF: 0 Creon 3,000-9,500- 15,000 unit capsule,delayed release(DR/EC) 1 cap PO BID 30 Days Qty: 60 RF: 2 sumatriptan succinate 50 mg tablet See Rx Instructions PO .COMPLEX RF: 0 hydroxyzine HCl 50 mg tablet 50 mg PO TID PRN (Reason: N/V) RF: 0 clopidogrel 75 mg tablet 75 mg PO DAILY@09 Qty: 90 RF: 3 isosorbide mononitrate 30 mg tablet extended release 24 hr 30 mg PO DAILY Qty: 90 RF: 3 aspirin [Adult Aspirin Regimen] 81 mg tablet,delayed release (DR/EC) 81 mg PO DAILY@09 Qty: 90 RF: 3 ondansetron 4 mg tablet,disintegrating 4 mg PO Q6H PRN (Reason: nausea and vomiting) Qty: 14 RF: 0 pantoprazole 40 mg tablet,delayed release (DR/EC) 40 mg PO BIDWM Qty: 60 RF: 0 quetiapine 50 mg tablet 50 mg PO BEDTIME RF: 0 atorvastatin 80 mg tablet 80 mg PO DAILY RF: 0 citalopram 20 mg Tablet 20 mg PO BEDTIME RF: 0 Discontinued meloxicam 15 mg tablet 15 mg PO DAILY Qty: 14 RF: 0 Discharge Orders: Discharge Order (Routine); Ordered 08/17/21 Ordered By: Harry Black Referrals: Roly Sims MD [Physician] - 4-7 days (Ok initial follow up Jocy Vasquez) Davy Blanton [Primary Care Provider] - 4-7 days Discharge Diet: Cardiac Discharge Activity: Increase activity as tolerated Patient Instructions: Coronary Angioplasty (DC), Opioid Safety Activity Restrictions/Additional Instructions: Take all medicine as prescribed Clarify discharge orders with cardiology prior to patient leaving Follow-up with cardiology, primary care provider. Cardiology next week with nurse practitioner. Primary care provider 3 to 5 days. Return for any concerns Discharge Attestations Time Spent in Discharge Care*: greater than 30 min Status at Discharge: Cognitive status at discharge: cognitively intact, Behavioral status at discharge: cooperative, Quality Metrics Clinical Quality Measures During this hospital stay, did patient experience: AMI Clinical Trial Participant: No Contraindication to aspirin (AMI): Aspirin given Contraindication to statin: Statin prescribed Contraindication to PCI: PCI performed Coding Level of Care Code Acute g FW DC note Diagnoses NSTEMI (non-ST elevated myocardial infarction) I21.4 Essential (primary) hypertension I10 Mixed hyperlipidemia E78.2
[2021-08-17] MEDS: ondansetron 2 mg/ML SDV 2 mL 4 MG IVP (09:23)
--- NOTE | 2021-08-17 09:53 | PM.PN ---
Subjective Subjective: Interval history: Stable no overnight event. Status post PCI to mid RCA for in-stent restenosis. Medications: Reviewed: Yes Vitals/I&O/Wt Last Vital Signs Temp 98.4 F 08/17/21 08:00 Pulse 78 08/17/21 08:00 Resp 18 08/17/21 07:53 BP 147/82 08/17/21 08:00 Pulse Ox 95 08/17/21 08:00 08/16/21 08/17/21 08/17/21 22:59 06:59 14:59 Intake Total 2240 / 2480 640 / 3120 360 / 360 Output Total 1075 / 1335 300 / 300 Balance 2240 / 2220 -435 / 1785 60 / 60 Weight last 48 hrs Weight 195 lb 4.8 oz Physical Exam Narrative: EXAM NARRATIVE: GENERAL: Patient is alert, awake and oriented x3. NECK: No jugular vein distension. HEENT: No cyanosis. No icterus. No pallor. HEART: Regular S1 and S2. No murmur, rub or gallop. LUNGS: Clear to auscultate bilaterally. ABDOMEN: Soft, nontender and nondistended. Positive bowel sounds. No guarding, rebound or tenderness. CENTRAL NERVOUS SYSTEM: Grossly nonfocal. Const: COMMON NORMALS: alert Resp: COMMON NORMALS: clear to auscultation bilaterally AUSCULTATION: clear to auscultation bilaterally Neuro: SENSORIUM/ORIENTATION: Yes alert Data : 08/17/21 03:08 08/17/21 03:08 A&P Assessment and plan (1) NSTEMI (non-ST elevated myocardial infarction): Stable status post PCI to mid RCA for in-stent restenosis, continue aspirin statin beta-virgilio and clopidogrel. Follow-up with cardiology in 2 weeks Status: Acute (2) Essential (primary) hypertension: Well-controlled Status: Acute (3) Mixed hyperlipidemia: Continue statin. Status: Acute Attestations Medical Necessity Statement*: Patient require continuation of hospitalization for above defined care. 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
[2021-08-17] MEDS: metoprolol succinate ER (24 HR) 25 mg Tablet 12.5 MG PO (10:08)
--- NOTE | 2021-08-17 10:25 | PC.CHAP ---
Pastoral Care Encounter/Spiritual Assessment Type of Contact [] Declined supervisor plate forming visit [] Patient/Family/Request visit [] Outpatient visit [] Follow-up visit [] Physician referral [] Code/Alert [x] Routine visit [] Staff referral [] Actively dying [] Patient sleeping [] Family support [] [] Out of room [] Palliative care [] [] Receiving care in room [] Pre-surgical visit [] Trauma [] Long length of stay [] ICU visit [] Other: Relational/Emotional Strength [x] Patient feels connected with others/family/visitors/staff [] Distress [] Loneliness/isolation [] Abandonment Spirituality of Patient [x] Person of Bailey [] Attends Taoist of their Bailey x] Believes in Prayer [] Reads Bible or Samaritan materials [] There are Spiritual issues to be addressed Geotechnical Field Technician Interventions [x] Prayer [x] Active listening [x] Non-anxious presence [x [] Spiritual counseling [] Bereavement support [] Provided bereavement packet [] Provided Bible/devotional materials [] Provided toy/stuffed animal, coloring book to patient or family member [] Provided Communion [] Anointing/[place] [] Salvation [x] Completed spiritual assessment [] Other: Impact on Illness or Injury [] Angry [] Fearful [] Anxious [] Often cries [] Exhaustion [] Unable to work [] Unable to attend christianity [] Unable to walk/stand [] Unable to read [] Unable to drive [] Unable to eat/drink [] Unable to sleep [] Unable to be with family [] Patient intubated [] Other: Summary Time spent with patient 10 min
== END 2021-08-17 12:30 | disposition home or self-care (01) | DRG 247 ==
LOC: ER 08:14 → ER IP 13:22 → CSU 18:23 → ER IP 08-16 05:46
PROVIDERS: Internal Medicine Cardiovascular Disease; Admitting Provider Internal Medicine; Emergency Provider Emergency Medicine; PCP Family Medicine; Visit Provider Internal Medicine
PROC: 027034Z Dilation of Coronary Artery, One Artery with Drug-eluting Intraluminal Device, Percutaneous Approach (ICD-10-PCS; principal; 2021-08-16 08:40)
PROC: 027034Z Dilation of Coronary Artery, One Artery with Drug-eluting Intraluminal Device, Percutaneous Approach (ICD-10-PCS; 2021-08-16 08:40)
DX: I21.4 Non-ST elevation (NSTEMI) myocardial infarction (principal); I25.10 Atherosclerotic heart disease of native coronary artery without angina pectoris; I10 Essential (primary) hypertension; Z95.5 Presence of coronary angioplasty implant and graft; Z87.891 Personal history of nicotine dependence; Z79.82 Long term (current) use of aspirin; J44.9 Chronic obstructive pulmonary disease, unspecified; K21.9 Gastro-esophageal reflux disease without esophagitis; E78.2 Mixed hyperlipidemia; Z79.02 Long term (current) use of antithrombotics/antiplatelets; F41.9 Anxiety disorder, unspecified; F32.A Depression, unspecified; G40.909 Epilepsy, unspecified, not intractable, without status epilepticus
CPT/HCPCS: 36415; 71045; 80048; 80053; 83690; 83735; 84443; 84484; 85025; 85347; 87426; 93005; 93306; 93454; 94640; 96372; 99285; C1725; C1769; C1874; C1887; C1894; C9600; G0378; J1200; J1644; J1650; J2250; J2405; J2765; J3010; J7030; J7626; Q0163; Q9967

== ENCOUNTER → 2021-08-16 | Day surgery (SDC) | payer MEDICAID, SELFPAY | PROVIDERS: PCP Family Medicine; Visit Provider Internal Medicine Cardiovascular Disease | DX: Z01.818 Encounter for other preprocedural examination (principal) | CPT/HCPCS: J1644; J2250; J3010 ==

== ENCOUNTER → 2021-08-30 09:30 | Outpatient (BNVA) | payer MEDICAID, SELFPAY | PROVIDERS: PCP Family Medicine; Visit Provider Nurse Practitioner Family | DX: I21.4 Non-ST elevation (NSTEMI) myocardial infarction (principal); I25.10 Atherosclerotic heart disease of native coronary artery without angina pectoris; Z09 Encounter for follow-up examination after completed treatment for conditions other than malignant neoplasm | CPT/HCPCS: 80048 ==

== ENCOUNTER → 2021-10-05 00:01 | Outpatient (BNVA) | payer MEDICAID, SELFPAY | PROVIDERS: PCP Family Medicine; Visit Provider Orthopaedic Surgery | DX: Z20.822 Contact with and (suspected) exposure to COVID-19 (principal); Z01.818 Encounter for other preprocedural examination | CPT/HCPCS: 87635 ==

== ENCOUNTER 2021-10-10 12:21 | Observation (INO) | payer MEDICAID, SELFPAY ==
[2021-10-05 11:12] VITALS: BMI 31.3
--- NOTE | 2021-10-05 12:11 | ANES.PREANE2 ---
Pre-Anesthetic Assessment Height/Weight: Height 1.7 m Weight 90.718 kg Preop Diagnosis: Non-ST elevation [place] Operation Date: 10/10/21 09:45 Proposed Procedures p Right Total Knee Arthroplasty 11183/m17.11(Right) - Ismael Abel MD Was Beta Enriqueta taken within 24 hours: N/A (Metoprolol d/c at last visit due to diarrhea w/ low BP) Was Clonidine taken within 24 hours: N/A Social Tobacco and No alcohol Exam alert, oriented x 3 and regular rate & rhythm Wheezing b/l Airway Submandibular: within normal limits Cervical ROM: within normal limits Mallampati: Class III Dentition: chipped Comments: Comments: Poor dentition Medications/Allergies Home Medications Medication Instructions Recorded Confirmed Last Taken Type albuterol sulfate 90 mcg/actuation 2 puff INHALATION Q6H PRN 08/22/19 10/05/21 10/03/21 History aerosol inhaler (ProAir HFA) buspirone 30 mg tablet 30 mg PO BID tab 08/22/19 10/05/21 10/05/21 History ipratropium 0.5 mg-albuterol 3 mg 3 ml INHALATION QID PRN 08/22/19 09/28/21 09/30/20 History (2.5 mg base)/3 mL nebulization soln nitroglycerin 0.4 mg sublingual 0.4 mg SUBLINGUAL Q5M PRN 08/22/19 10/05/21 08/17/21 History tablet (Nitrostat) tamsulosin 0.4 mg capsule 0.4 mg PO BEDTIME 08/22/19 10/05/21 10/05/21 History zonisamide 100 mg capsule 200 mg PO BID cap 08/22/19 10/05/21 10/05/21 08:00 History pantoprazole 40 mg tablet,delayed 40 mg PO BIDWM #60 tab 03/01/21 10/05/21 10/05/21 Rx release ondansetron 4 mg disintegrating 4 mg PO Q6H PRN #14 tab 03/21/21 10/05/21 Unknown Rx tablet quetiapine 50 mg tablet 50 mg PO BEDTIME 03/30/21 10/05/21 10/04/21 20:00 History lipase 3,000-protease 1 cap PO BID 30 Days #60 cap 04/19/21 10/05/21 10/04/21 Rx 9,500-amylase 15,000 unit capsule, delayed rel (Creon) clonazepam 1 mg tablet 2 mg PO BID PRN tab 07/07/21 10/05/21 10/05/21 History hydroxyzine HCl 50 mg tablet 50 mg PO TID PRN 07/07/21 10/05/21 10/05/21 History sumatriptan succinate 50 mg tablet See Rx Instructions PO .COMPLEX 07/07/21 10/05/21 Unknown History clopidogrel 75 mg tablet 75 mg PO DAILY@09 #90 tab 07/08/21 10/05/21 10/05/21 Rx aspirin 81 mg tablet,delayed 81 mg PO DAILY@09 #90 tab 07/11/21 10/05/21 10/05/21 Rx release (Adult Aspirin Regimen) isosorbide mononitrate 30 mg 30 mg PO DAILY #90 tab 07/11/21 10/05/21 10/05/21 07:00 Rx tablet,extended release 24 hr atorvastatin 80 mg tablet 80 mg PO DAILY 08/15/21 10/05/21 10/05/21 History citalopram 20 mg tablet (Celexa) 20 mg PO BEDTIME 08/15/21 09/28/21 08/13/21 History Allergies Allergy/AdvReac Type Severity Reaction Status Date / Time meperidine [From Demerol] Allergy Severe ALGY-Hives Verified 09/28/21 09:22 Beef Containing Products Allergy ADR-Diarrhe Verified 09/28/21 09:22 a Pork/Porcine Containing Allergy ADR-Diarrhe Verified 09/28/21 09:22 Products a gabapentin AdvReac Severe ADR-Seizure Verified 09/28/21 09:22 morphine AdvReac Severe ALGY-Hives Verified 09/28/21 09:22 tramadol AdvReac Severe ADR-Seizure Verified 09/28/21 09:22 [facility] Anesthesia Medical History Abnormal finding on urinalysis Anxiety and depression Atherosclerosis of coronary artery Atherosclerotic heart disease of [place] coronary artery without angina pectoris Bladder wall thickening Cervical spondylosis Chronic migraine Chronic pancreatitis Chronic shortness of breath COPD (chronic obstructive pulmonary disease) Diverticulosis Essential (primary) hypertension GERD (gastroesophageal reflux disease) H. pylori infection Heart attack Hx of coronary angiogram Medical marijuana use Mixed hyperlipidemia Osteoarthritis Pharyngitis Radiculopathy, lumbar region Seizure disorder SOB (shortness of breath) Tobacco dependency Torsion of appendix testis Total bilirubin, elevated Urethral stricture Surgical History H/O chest tube placement H/O left knee surgery H/O neck surgery H/O removal of testicle H/O right knee surgery History of appendectomy History of cholecystectomy Stented coronary artery Family History Brother Parkinson disease Cancer Diabetes Stroke Family/Other Cancer Chronic kidney disease (CKD) Suicide Grandmother CAD (coronary artery disease) Cancer Lung disease Grandfather Dementia Mother Lung disease Father Suicide Denies family history of Clotting disorder Anesthesia complication Bleeding disorder Social History Smoking and tobacco status: current every day smoker (cigars) cigarettes [ Other cigarette details: Had quit but today picked up again] Quit status (tobacco): has tried quititng Smoking risk assessment/counseling performed?: Yes Alcohol intake: never Lives independently: Yes Household members: significant other Current occupational status: disabled History of recent travel: No Current gender identity: Male Data Anesthesia Cardiac Studies: Echocardiogram 08/15/21
--- NOTE | 2021-10-05 14:08 | P.ANESASSM_ITS ---
Pre-Anesthetic Assessment Height/Weight: Height 1.7 m Weight 90.718 kg Preop Diagnosis: OA Operation Date: 10/10/21 09:45 Proposed Procedures p Right Total Knee Arthroplasty 37160/m17.11(Right) - Ismael Abel MD Familial anesthetic complications: None Was Beta Enriqueta taken within 24 hours: N/A Was Clonidine taken within 24 hours: N/A Social Tobacco and No alcohol Exam alert, oriented x 3 and clear to auscultation bilaterally B/L Wheezing Airway Submandibular: within normal limits Cervical ROM: within normal limits Mallampati: Class III Comments: Comments: Poor dentition Pulmonary Chronic Obstructive Pulmonary Disease, Exertional Dyspnea and Shortness of Breath CV/HEM Hypertension and Myocardial Infarction (In stent thrombosis with new GARRETT placed 07/2021) 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 1. There is subtotal occlusion coronary artery disease with two vessel disease. ? 2. Mid Right Coronary Artery was treated with a Balloon, Drug Eluting Stent, and Balloon. Recommendations ? * 1-Return to inpatient for close monitoring and routine cath care ?2-Risk factor modification for secondary prevention 3-Statin and aspirin 81 mg life--long, if tolerated 4-Continue Plavix 75mg p.o. daily for at least one year. We will assess at the end of one year again to continue if further or not 5-Continue optimal medical management 6-Follow up with Dr. Sims in four weeks and your primary care in 10 days. TTE 08/15/2021 ?CONCLUSIONS ?Normal LV size with borderline low ejection fraction of 51%.? ?Moderate hypokinesia of the basal inferolateral region. ?Mild mitral valve regurgitation. ?Trace tricuspid valve regurgitation. ?There is no pericardial effusion. ?There are no intracardiac masses. ?No previous study is available for comparison. ?Compared to the study from 04/19/2017, the wall motion ?abnormalities appear to be new Hypokalemia GI None reported Chronic pancreatitis Metabolic None reported Musc/skel Osteoarthritis/DJD Neuropsych Anxiety, Depression, Neuropathy and Seizure Radiculopathy Anesthetic Plan ASA status: 4 Anesthesia: Anesthesia Evaluation Other: After interviewing patient and examining him I met with Jocy Vasquez in person to go over the details of his history. The patient was cleared for surgery by cardiology, however he was not cleared to stop clopidogrel. Current recommendations include continuing dual antiplatelet therapy for a minimum of 3 months to 6 months. This patient had a thrombosis of a stent already in place while on anti platelet medication. I believe stopping his antiplatelet medications is very high risk. Jocy Vasquez plans to contact Doctor Colten's office to discuss this further. However at this time patient was instructed by me to not stop his anti platelet therapy until he was further advised by his compensation/benefits specialist. Patient expressed understanding and all questions were answered. Patient stated he would discuss this with Doctor Colten's office later today as he was scheduled to go in for a nasal swab. Risk of > 500 ml blood loss (7ml/kg in children): No Medications/Allergies Home Medications Medication Instructions Recorded Confirmed Last Taken Type albuterol sulfate 90 mcg/actuation 2 puff INHALATION Q6H PRN 08/22/19 10/05/21 10/03/21 History aerosol inhaler (ProAir HFA) buspirone 30 mg tablet 30 mg PO BID tab 08/22/19 10/05/21 10/05/21 History ipratropium 0.5 mg-albuterol 3 mg 3 ml INHALATION QID PRN 08/22/19 09/28/21 09/30/20 History (2.5 mg base)/3 mL nebulization soln nitroglycerin 0.4 mg sublingual 0.4 mg SUBLINGUAL Q5M PRN 08/22/19 10/05/21 08/17/21 History tablet (Nitrostat) tamsulosin 0.4 mg capsule 0.4 mg PO BEDTIME 08/22/19 10/05/21 10/05/21 History zonisamide 100 mg capsule 200 mg PO BID cap 08/22/19 10/05/21 10/05/21 08:00 History pantoprazole 40 mg tablet,delayed 40 mg PO BIDWM #60 tab 03/01/21 10/05/21 10/05/21 Rx release ondansetron 4 mg disintegrating 4 mg PO Q6H PRN #14 tab 03/21/21 10/05/21 Unknown Rx tablet quetiapine 50 mg tablet 50 mg PO BEDTIME 03/30/21 10/05/21 10/04/21 20:00 History lipase 3,000-protease 1 cap PO BID 30 Days #60 cap 04/19/21 10/05/21 10/04/21 Rx 9,500-amylase 15,000 unit capsule, delayed rel (Creon) clonazepam 1 mg tablet 2 mg PO BID PRN tab 07/07/21 10/05/21 10/05/21 History hydroxyzine HCl 50 mg tablet 50 mg PO TID PRN 07/07/21 10/05/21 10/05/21 History sumatriptan succinate 50 mg tablet See Rx Instructions PO .COMPLEX 07/07/21 10/05/21 Unknown History clopidogrel 75 mg tablet 75 mg PO DAILY@09 #90 tab 07/08/21 10/05/21 10/05/21 Rx aspirin 81 mg tablet,delayed 81 mg PO DAILY@09 #90 tab 07/11/21 10/05/21 10/05/21 Rx release (Adult Aspirin Regimen) isosorbide mononitrate 30 mg 30 mg PO DAILY #90 tab 07/11/21 10/05/21 10/05/21 07:00 Rx tablet,extended release 24 hr atorvastatin 80 mg tablet 80 mg PO DAILY 08/15/21 10/05/21 10/05/21 History citalopram 20 mg tablet (Celexa) 20 mg PO BEDTIME 08/15/21 09/28/21 08/13/21 History Allergies Allergy/AdvReac Type Severity Reaction Status Date / Time meperidine [From Demerol] Allergy Severe ALGY-Hives Verified 09/28/21 09:22 Beef Containing Products Allergy ADR-Diarrhe Verified 09/28/21 09:22 a Pork/Porcine Containing Allergy ADR-Diarrhe Verified 09/28/21 09:22 Products a gabapentin AdvReac Severe ADR-Seizure Verified 09/28/21 09:22 morphine AdvReac Severe ALGY-Hives Verified 09/28/21 09:22 tramadol AdvReac Severe ADR-Seizure Verified 09/28/21 09:22 [facility] Anesthesia Medical History Abnormal finding on urinalysis Anxiety and depression Atherosclerosis of coronary artery Atherosclerotic heart disease of [place] coronary artery without angina pectoris Bladder wall thickening Cervical spondylosis Chronic migraine Chronic pancreatitis Chronic shortness of breath COPD (chronic obstructive pulmonary disease) Diverticulosis Essential (primary) hypertension GERD (gastroesophageal reflux disease) H. pylori infection Heart attack Hx of coronary angiogram Medical marijuana use Mixed hyperlipidemia Osteoarthritis Pharyngitis Radiculopathy, lumbar region Seizure disorder SOB (shortness of breath) Tobacco dependency Torsion of appendix testis Total bilirubin, elevated Urethral stricture Surgical History H/O chest tube placement H/O left knee surgery H/O neck surgery H/O removal of testicle H/O right knee surgery History of appendectomy History of cholecystectomy Stented coronary artery Family History Brother Parkinson disease Cancer Diabetes Stroke Family/Other Cancer Chronic kidney disease (CKD) Suicide Grandmother CAD (coronary artery disease) Cancer Lung disease Grandfather Dementia Mother Lung disease Father Suicide Denies family history of Clotting disorder Anesthesia complication Bleeding disorder Social History Smoking and tobacco status: current every day smoker (cigars) cigarettes [ Other cigarette details: Had quit but today picked up again] Quit status (tobacco): has tried quititng Smoking risk assessment/counseling performed?: Yes Alcohol intake: never Lives independently: Yes Household members: significant other Current occupational status: disabled History of recent travel: No Current gender identity: Male Data Anesthesia Cardiac Studies: Echocardiogram 08/15/21
[2021-10-10] VITALS (21 sets, daily range): BP systolic 100–162; BP diastolic 60–78; PULSE 64–107; RESP 16–18; TEMP 36.2–36.9; O2SAT 93–100
[2021-10-10] MEDS: sodium chloride 0.9% 1,000 ML 30 ML IV (07:44)
[2021-10-10] MEDS: oxyCODONE 20 mg ER (12 HR) Tablet PO (08:26)
[2021-10-10] MEDS: acetaminophen 500 mg Tablet 1000 MG PO ×3 (08:27→21:22)
[2021-10-10] MEDS: CELEcoxib 200 mg Capsule 400 MG PO (08:28)
--- NOTE | 2021-10-10 09:10 | SUR.PREOP ---
pharmacy made aware of patient's allergies. patient tolerated right leg nerve block well.
--- NOTE | 2021-10-10 09:18 | P.ANESUD_ITS ---
Pre-Anesthetic Update Pre-Anesthetic Assessment: Date of Surgery/Procedure: 10/10/21 Preop Caryn gnosis: Osteoarthritis Right knee Proposed Procedure: Operation Date: 10/10/21 09:45 Proposed Procedures p Right Total Knee Arthroplasty 21416/m17.11(Right) - Ismael Abel MD Changes from Pre-Anesthetic Assessment: None Last Intake: Intake Last Liquid Date 10/09/21 Last Liquid Time 23:50 Last Solid Date 10/09/21 Last Solid Time 16:00 Labs Last 48hrs: > 8 hrs Vitals: Temperature 97.5 F L 10/10/21 07:45 Temperature Source Temporal Artery S can 10/10/21 07:45 Pulse Rate 64 10/10/21 08:51 Pulse Rhythm 10/10/21 07:56 Pulse Strength 3+ Normal 10/10/21 07:56 Respiratory Rate 16 10/10/21 08:51 Respiratory Effort 10/10/21 08:26 Respiratory Depth Normal 10/10/21 08:26 Respiratory Patter n 10/10/21 08:26 Blood Pressure 110/70 10/10/21 08:51 Blood Pressure Harm[place] n 83 10/10/21 08:51 Pulse Oximetry 100 10/10/21 08:51 Oxygen Delivery Me thod 10/10/21 08:51 Exam: Pre-Anes Outpt Exam: alert, oriented x 3, clear to auscultation bilaterally and regular rate & rhythm Other Pertinent Information: Other Pertinent Information: Discussed with patient option to wait 6 months after DE, patient declined waiting for that interval. Dr. Garza cleared for surgery w/ continuation of plavix. Cardiac Studies: Echocardiogram 08/15/21
--- NOTE | 2021-10-10 09:19 | ANES.PROC ---
Anesthesia Procedures Procedure/Date: 10/10/21 Nerve Block ^: Nerve Block 1: Main Anesthesia: general anesthesia Time Out Performed: Yes Consent: requested by attending/covering physician, from patient, risks and benefits reviewed and patient agrees to proceed Nerve block location: adductor canal (R) Anesthesia monitors applied: pulse oximetry, EKG, BP cuff and oxygen Nerve block position: supine Anesthetic Used: ropivicaine 0.5% (30 ml) and with decadron (4 mg) Ultrasound used to: recognize landmarks and visualize and ID femerol nerve Nerve Stimulator Used?: No Interscalene/Femoral BLK: 4 stimuplex 21 g needle used for position and inplane approach, visualize local anesthetic spread and no vascular puncture identified Injection: neg aspiration of heme Patient Tolerated Procedure: well and no complications Complications: none
--- NOTE | 2021-10-10 09:27 | P.HP_ITS ---
Same Day Surgery H&P Indication for Procedure/HPI DATE OF PROCEDURE: October 10, 2021 CHIEF COMPLAINT/INDICATIONFOR SURGICAL PROCEDURE: Right total knee arthroplasty PREOP DIAGNOSIS: Osteoarthritis Right knee PLANNED PROCEDURE: Operation Date: 10/10/21 09:45 Proposed Procedures p Right Total Knee Arthroplasty 58986/m17.11(Right) - Ismael Abel MD ROS Patient is a 50-year-old male was undergone, multiple arthroscopic procedures including anterior cruciate reconstruction. He underwent arthroscopic debridement myself in 2019 with continued right knee pain. He is scheduled for right total knee arthroplasty. He has a significant cardiac history including stents in 2016. He has been cleared for surgery house however at has been advised not to stop his Plavix Medications/Allergies* Home Medications Medication Instructions Recorded Confirmed Type albuterol sulfate 90 mcg/actuation 2 puff INHALATION Q6H PRN 08/22/19 10/05/21 History aerosol inhaler (ProAir HFA) buspirone 30 mg tablet 30 mg PO BID tab 08/22/19 10/05/21 History ipratropium 0.5 mg-albuterol 3 mg 3 ml INHALATION QID PRN 08/22/19 10/10/21 History (2.5 mg base)/3 mL nebulization soln nitroglycerin 0.4 mg sublingual 0.4 mg SUBLINGUAL Q5M PRN 08/22/19 10/05/21 History tablet (Nitrostat) tamsulosin 0.4 mg capsule 0.4 mg PO BEDTIME 08/22/19 10/05/21 History zonisamide 100 mg capsule 200 mg PO BID cap 08/22/19 10/05/21 History quetiapine 50 mg tablet 50 mg PO BEDTIME 03/30/21 10/05/21 History clonazepam 1 mg tablet 2 mg PO BID PRN tab 07/07/21 10/05/21 History hydroxyzine HCl 50 mg tablet 50 mg PO TID PRN 07/07/21 10/05/21 History sumatriptan succinate 50 mg tablet See Rx Instructions PO .COMPLEX 07/07/21 10/05/21 History atorvastatin 80 mg tablet 80 mg PO DAILY 08/15/21 10/05/21 History citalopram 20 mg tablet (Celexa) 20 mg PO BEDTIME 08/15/21 09/28/21 History Allergies/Adverse Reactions Allergy/AdvReac Type Severity Reaction Status Date / Time meperidine [From Demerol] Allergy Severe ALGY-Hives Verified 09/28/21 09:22 Beef Containing Products Allergy ADR-Diarrhe Verified 09/28/21 09:22 a Pork/Porcine Containing Allergy ADR-Diarrhe Verified 09/28/21 09:22 Products a gabapentin AdvReac Severe ADR-Seizure Verified 09/28/21 09:22 morphine AdvReac Severe ALGY-Hives Verified 09/28/21 09:22 tramadol AdvReac Severe ADR-Seizure Verified 09/28/21 09:22 Pertinent History/Comorbid Conditions* Medical History (Updated 08/30/21 @ 09:20 by AWA Medina) Abnormal finding on urinalysis Anxiety and depression Atherosclerosis of coronary artery Atherosclerotic heart disease of [place] coronary artery without angina pectoris Bladder wall thickening Cervical spondylosis Chronic migraine Chronic pancreatitis Chronic shortness of breath COPD (chronic obstructive pulmonary disease) Diverticulosis Essential (primary) hypertension GERD (gastroesophageal reflux disease) H. pylori infection Heart attack Hx of coronary angiogram Medical marijuana use Mixed hyperlipidemia Osteoarthritis Pharyngitis Radiculopathy, lumbar region Seizure disorder SOB (shortness of breath) Tobacco dependency Torsion of appendix testis Total bilirubin, elevated Urethral stricture Surgical History (Updated 03/02/20 @ 09:24 by Ismael Abel MD) H/O chest tube placement H/O left knee surgery H/O neck surgery H/O removal of testicle H/O right knee surgery History of appendectomy History of cholecystectomy Stented coronary artery Family History (Updated 07/07/21 @ 15:03 by Bella Rivera RN) Diabetes Brother CAD (coronary artery disease) Grandmother Dementia Grandfather Chronic kidney disease (CKD) Family/Other Suicide Family/Other Father Lung disease Grandmother Mother Cancer Brother Family/Other Grandmother Parkinson disease Brother Stroke Brother Denies family history of Clotting disorder Anesthesia complication Bleeding disorder Social History Smoking and tobacco status: current every day smoker (cigars) cigarettes [ Other cigarette details: Had quit but today picked up again] Quit status (tobacco): has tried quititng Smoking risk assessment/counseling performed?: Yes Alcohol intake: never Lives independently: Yes Household members: significant other Current occupational status: disabled History of recent travel: No Current gender identity: Male Pertinent Exam Findings alert, oriented x 3 and clear to auscultation bilaterally Recommendations Surgery/Procedure today Other Plans: We will proceed with surgery today as scheduled. He will continue his Plavix. We will use a tourniquet. I will avoid intravenous TXA. We can rely on capsular injection at the end of the case. Patient's risk of been assessed by cardiology and he agrees to proceed. 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
[2021-10-10] MEDS: EPINEPHrine 1 mg/mL INJ XX (10:40)
[2021-10-10] MEDS: ketorolac 30 mg/mL INJ XX (10:41)
[2021-10-10] MEDS: tranexamic acid 1,000 mg/10mL SDV 1000 MG XX (10:42)
[2021-10-10] MEDS: sodium chloride 0.9% 100 mL Bag XX (10:42)
--- NOTE | 2021-10-10 11:59 | XR_ITS ---
WS: [id number] Right knee, AP and lateral views, 10/10/2021 Clinical Data: Right Total Knee arthroplasty Comparison: No AP knees, right knee, 08/03/2021. Findings: A right knee arthroplasty is in good position. No loosening is seen. There is an orthopedic screw fro m an ACL repair which still remains in the lateral distal right femur. There is minimal air in the suprapatellar bursa. XR/XR knee RT 1-2V [id number] Impression: Right knee arthroplasty.
--- NOTE | 2021-10-10 12:00 | PM.OP ---
Operative Report Date of procedure: October 10, 2021 Pre-op diagnosis: Preop Diagnosis Osteoarthritis Right knee Post-op diagnosis: same Post-op diagnosis: Same Post-op findings: Same Procedure done: Right total knee arthroplasty Implants: Kassidy total knee arthroplasty components were used includin) Size 4 triathalon cruciate retaining femoral component 2) Size 5 Tritanium tibial component 3) 35 mm /10 mm thickness Tritanium asymetric patella 4) Size 5/13 mm thickness CR tibial bearing insert Pathology: none sent Surgeon: Ismael Abel Anesthesia: General and Nerve Block (adductor canal block) Estimated blood loss (mL): 200 Findings: The patient eburnated bone over both femoral condyles and tibial plateaus patella and trochlea Condition: stable Disposition: PACU Procedure: The patient was taken to the operating room. Patient was given 1 g of tranexamic acid . The above anesthesia provided by the anesthesia service. A timeout was performed. The patient was prepped and draped in the usual fashion with the lower extremity exposed. A anterior incision was made, midline, from a point proximal to the patella to the distal tibial tubercle. The knee was entered through a medial parapatellar approach. The patella could be displaced laterally and the knee flexed. The patellar fat pad was resected to provide better visibility. Retractors were placed medially and laterally adjacent to the tibial plateau. The femoral canal was drilled in line with the longitudinal axis of the femur. Intramedullary femoral guide for used to make a distal femoral cut in 5 degrees of valgus, resecting 8 mm from the more prominent condyle. As the tibial interference screw interfered with the tibial component. The screw was identified over the medial tibia and removed easily with a hexagonal screwdriver. Next the extra medullary tibial guide was placed in alignment with the longitudinal axis of the tibia. The cutting guides were set to remove just over 9 mm from the high tibial plateau. The proximal tibia was then cut. The femoral measuring guide was then placed over the distal femur. Rotation was verified checking the relationship of the guide to the condyle and the trochlear groove. The femur was measured and cut for the desired femoral component. The desired tibial baseplate was then chosen. A trial reduction with the femur tibial baseplate and polyethylene was done, assuring that the knee was stable throughout full motion. Ligament balancing nothing more than a release of the deep medial collateral ligament.The tibia was prepared for the tibial baseplate. Patellar thickness was then measured. The patella was cut removing articular cartilage and prepared for appropriate size patellar button. surfaces were cleaned with a gentamicin solution. The femur tibia and patella were then [] into place. The posterior capsule and collateral ligaments were then injected with a solution of 100 mL of 0.2% ropivacaine, 1 mL of a 1:1000 epinephrine solution, 30 mg of Toradol, and 1 g of tranexamic acid. Final polyethylene component was then snapped into place into the tibia. The extensor retinaculum was closed with a running 1 Stratafix interrupted 1 Ethibond. The subcutaneous tissues were closed with 2-0 Vicryl and the skin was closed with a running 4-0 Stratafix. The wound was covered with a Dermabond Prineo dressing. It was covered with 4xrs and a compressive Tubigauze was applied. The patient was taken to recovery room in stable condition.
[2021-10-10] MEDS: fentaNYL 50 mcg/mL INJ 2mL IVP (12:03)
[2021-10-10] MEDS: CELEcoxib 200 mg Capsule PO (13:40)
[2021-10-10] MEDS: oxyCODONE 5 mg IR Tab/Cap PO ×3 (13:45→21:23)
--- NOTE | 2021-10-10 13:45 | ANE.PACU2 ---
Inpatient post-anesthesia follow up: Airway intact: Yes Vital signs: Temperature 97.2 F Pulse Rate 96 Respiratory Rate 18 Blood Pressure 162/72 Pulse Oximetry 96 Oxygen Delivery Me thod Room Air Oxygen Flow Rate 6 Fraction of Inspir ed Oxygen Hydration adequate: Yes Nausea and vomiting: No Pain level: 4 Mental status: Baseline
[2021-10-10] MEDS: sodium chloride 0.9% 1,000 ML 100 ML IV (13:46)
[2021-10-10] MEDS: CLONazepam 1 mg Tablet 2 MG PO (15:46)
[2021-10-10] MEDS: zonisamide 100 MG Capsule 200 MG PO (17:13)
[2021-10-10] MEDS: BuSPIRONE 10 mg Tablet 30 MG PO (17:13)
[2021-10-10] MEDS: pantoprazole DR 40 mg Tablet PO (17:13)
[2021-10-10] MEDS: nicotine 21 mg Patch 1 PATCH TRANSDERMA (17:13)
--- NOTE | 2021-10-10 17:58 | PC.NURSE ---
Patient arrived to floor from surgery early this shift. Post procedure monitoring done, patient stable. Patients pain is being well controlled with PRN pain medications. MD Abel stated that patients allergy to morphine is not severe enough to hold morphine if patient needs it. Patient is pretty anxious, medications and nicotine patch given. Abx given as ordered. Patient ambulated with PT today. Patient should go home tomorrow. Will continue to monitor and give report to night nurse.
[2021-10-10] MEDS: quetiapine 25 mg Tablet 50 MG PO (21:21)
[2021-10-10] MEDS: tamsulosin 0.4 mg Capsule PO (21:22)
[2021-10-11] MEDS: sodium chloride 0.9% 1,000 ML 100 ML IV (00:08)
[2021-10-11 00:55] VITALS: RESP 20
[2021-10-11] MEDS: oxyCODONE 5 mg IR Tab/Cap PO ×2 (00:55→04:42)
[2021-10-11] MEDS: CELEcoxib 200 mg Capsule PO (00:55)
[2021-10-11 04:00] VITALS: BP 117/70; PULSE 83; RESP 17; TEMP 36.7; O2SAT 98
[2021-10-11] MEDS: acetaminophen 500 mg Tablet 1000 MG PO (04:41)
[2021-10-11 04:42] VITALS: RESP 18; O2SAT 98
[2021-10-11 07:24] VITALS: BP 122/80; PULSE 81; RESP 16; TEMP 36.5; O2SAT 99
--- NOTE | 2021-10-11 07:59 | PM.DCS ---
Discharge Providers Date of Admission: 10/10/21 12:21 Date of Discharge: October 11, 2021 Attending Provider at Admission: Ismael Abel MD Attending Provider at Discharge: Ismael Abel MD Primary Care Provider: Davy Blanton Diagnoses at Discharge Discharge Diagnosis (1) Status post right knee replacement: Status: Acute (2) Osteoarthritis of right knee: Status: Resolved Qualifiers: Osteoarthritis type: unspecified Qualified Code(s): M17.11 - Unilateral primary osteoarthritis, right knee Reason for Visit Reason for Visit: osteoarthritis of right knee m17.11 Hospital Course Hospital Course The patient tolerated surgery well. They remained hemodynamically stable. They was begun on aspirin and foot pumps for DVT prophylaxis. The patient was mobilized with therapy beginning the day of surgery and by the first postoperative day independent with the walker. As the pain was adequately controlled and they were fully mobile they were discharged home. Physical Exam Narrative: On the day of discharge the knee incision was clean. They had no drainage. There is minimal swelling in the thigh and knee and the calf. No distal neurovascular deficits were noted Discharge Data Studies Completed and Pending Completed Studies During Hospitalization Category Date Time Status XR knee RT 1-2V 23710 Routine Exams 10/10/21 11:59 Completed Pending at discharge Category Date Time Status Complete Blood Count w/Auto Routine Lab 10/11/21 05:47 Ordered Radiology Impressions Knee X-Ray 10/10/21 11:59 Impression: Right knee arthroplasty. Laboratory Results Hgb Cancelled 10/11/21 05:25 Vitals Last Vital Signs Temp 97.7 F 10/11/21 07:24 Pulse 81 10/11/21 07:24 Resp 16 10/11/21 07:24 BP 122/80 10/11/21 07:24 Pulse Ox 99 10/11/21 07:24 Discharge Plan Discharge Patient Disposition: Home Condition: Stable Prescriptions: New hydrocodone-acetaminophen 7.5-325 mg Tablet 1 tab PO Q4H PRN (Reason: Moderate Pain) 7 Days Qty: 30 0RF celecoxib 200 mg Capsule 200 mg PO Q12H 14 Days Qty: 28 0RF Continued buspirone 30 mg tablet 30 mg PO BID 0RF zonisamide 100 mg capsule 200 mg PO BID 0RF tamsulosin 0.4 mg capsule 0.4 mg PO BEDTIME 0RF nitroglycerin [Nitrostat] 0.4 mg tablet, sublingual 0.4 mg SUBLINGUAL Q5M PRN (Reason: Chest Pain) 0RF albuterol sulfate [ProAir HFA] 90 mcg/actuation HFA aerosol inhaler 2 puff INHALATION Q6H PRN (Reason: Shortness Of Breath) 0RF ipratropium-albuterol 0.5 mg-3 mg(2.5 mg base)/3 mL solution for nebulization 3 ml INHALATION QID PRN (Reason: Shortness Of Breath) 0RF clonazepam 1 mg tablet 2 mg PO BID PRN (Reason: Anxiety) 0RF Creon 3,000-9,500- 15,000 unit capsule,delayed release(DR/EC) 1 cap PO BID 30 Days Qty: 60 2RF sumatriptan succinate 50 mg tablet See Rx Instructions PO .COMPLEX 0RF Rx Instructions: take 1 tab at onset of headache; if no relief may repeat 1 tab after at least 2 hrs; max = 4 tabs/24 hr PO hydroxyzine HCl 50 mg tablet 50 mg PO TID PRN (Reason: N/V) 0RF clopidogrel 75 mg tablet 75 mg PO DAILY@09 Qty: 90 3RF Label Comments: last day taking it 10/05/21. till after surgery. isosorbide mononitrate 30 mg tablet extended release 24 hr 30 mg PO DAILY Qty: 90 3RF aspirin [Adult Aspirin Regimen] 81 mg tablet,delayed release (DR/EC) 81 mg PO DAILY@09 Qty: 90 3RF ondansetron 4 mg tablet,disintegrating 4 mg PO Q6H PRN (Reason: nausea and vomiting) Qty: 14 0RF pantoprazole 40 mg tablet,delayed release (DR/EC) 40 mg PO BIDWM Qty: 60 0RF quetiapine 50 mg tablet 50 mg PO BEDTIME 0RF atorvastatin 80 mg tablet 80 mg PO DAILY 0RF citalopram [Celexa] 20 mg Tablet 20 mg PO BEDTIME 0RF Rx Instructions: no londer takes Discharge Orders: Discharge Order (Routine); Ordered 10/11/21 Ordered By: Ismael Abel Discharge Diet: Advance as tolerated Discharge Activity: Limit activity as instructed Patient Instructions: Opioid Safety Activity Restrictions/Additional Instructions: Okay to shower Keep Tubigauze sleeve in place for swelling. Okay to remove for hygiene. Apply FirstIce up to 20 min/hr for pain and swelling Take Celebrex twice a day for the next 15 days for pain , discontinue other anti-inflammatories Take Tylenol 325mg (2 tabs) as needed 3 times a day for mild pain take hydrocodone for breakthrough pain. Exercises per physical therapy. May weight-bear as tolerated on total knee arthroplasty IF HAVE ANY PROBLEMS OR QUESTIONS CALL HOSPITAL SPORTS MARKETING COORDINATOR AT AND ASK TO HAVE DR. SIMA MATT. Discharge Attestations Time Spent in Discharge Care*: other Status at Discharge: Cognitive status at discharge: cognitively intact, Behavioral status at discharge: [facility], Quality Metrics Clinical Quality Measures [ No reported AMI, CVA or VTE this stay] Coding Level of Care Code Acute [facility] [place] note Diagnoses Status post right knee replacement Z96.651 Osteoarthritis of right knee M17.11 Osteoarthritis type: unspecified
[2021-10-11] MEDS: zonisamide 100 MG Capsule 200 MG PO (08:33)
[2021-10-11] MEDS: BuSPIRONE 10 mg Tablet 30 MG PO (08:33)
[2021-10-11] MEDS: clopidogrel 75 mg Tablet PO (08:34)
[2021-10-11] MEDS: pantoprazole DR 40 mg Tablet PO (08:34)
[2021-10-11] MEDS: isosorbide mononitrate ER 30 mg Tablet PO (08:34)
[2021-10-11] MEDS: atorvastatin 40 mg Tablet 80 MG PO (08:34)
[2021-10-11] MEDS: aspirin 81 mg EC Tablet PO (08:34)
[2021-10-11] MEDS: HYDROcodone-acetaminophen 7.5-325 mg Tablet 1 TAB PO (08:34)
--- NOTE | 2021-10-11 09:07 | PC.NURSE ---
MD Colten assessed patient this AM and changed dressing. I assessed patient. Morning medications were given. Discharge education and teaching given, all questions were answered at this time. Belongings were accounted for. IV discontinued. Medications were sent to patient preferred pharmacy.
[2021-10-11 09:10] VITALS: BP 122/80; PULSE 81; RESP 16; TEMP 36.5; O2SAT 99
--- NOTE | 2021-10-11 09:41 | PC.OT ---
OT EVALUATION ORDERS RECEIVED. PATIENT DISCHARGED BEFORE EVALUATION COULD BE COMPLETED.
== END 2021-10-11 09:10 | disposition home or self-care (01) ==
LOC: MEDSURG 12:21
PROVIDERS: Admitting Provider Orthopaedic Surgery; PCP Family Medicine; Visit Provider Orthopaedic Surgery
PROC: (CPT 27447; principal; 2021-10-10 09:25)
DX: M17.11 Unilateral primary osteoarthritis, right knee (principal); I25.2 Old myocardial infarction; Z79.82 Long term (current) use of aspirin; I25.10 Atherosclerotic heart disease of native coronary artery without angina pectoris; J44.9 Chronic obstructive pulmonary disease, unspecified; I10 Essential (primary) hypertension; E78.2 Mixed hyperlipidemia; M19.90 Unspecified osteoarthritis, unspecified site; Z95.5 Presence of coronary angioplasty implant and graft
CPT/HCPCS: 27447; 36415; 64447; 73560; 76942; 97116; 97161; 97530; C1776; G0378; J0171; J0330; J0690; J1100; J1170; J1580; J1885; J2250; J2405; J2795; J3010; J7030

== ENCOUNTER 2021-10-16 07:44 | Emergency (ER) | payer MEDICAID, SELFPAY ==
[2021-10-16 07:53] VITALS: BP 99/68; PULSE 86; RESP 16; TEMP 36.4; O2SAT 98; BMI 31.3
[2021-10-16 08:01] VITALS: BP 99/68; PULSE 77; RESP 16; O2SAT 98
--- NOTE | 2021-10-16 08:02 | USCV_ITS ---
Josue Cheng Age: 50 Gender: M : 1970 Exam Date: 10/16/2021 08:10 Ordering Phys: Marlen Alanis Technologist: Iqra Coleman [place] [facility] [place]: POST RT KNEE REPLACEMENT HISTORY: Post Rt. Knee replacement PROCEDURES: Venous duplex imaging was performed in only the right lower extremity. The following venous structures were evaluated: common femoral vein, profunda vein, proximal portion of the greater saphenous vein, superficial femoral vein, and the popliteal vein. In addition, the posterior tibial and peroneal trunk were evaluated. Serial compression, augmentation maneuvers, and spectral Doppler flow evaluation were performed. FINDINGS: Normal 2-D Doppler and augmentation and compressibility throughout the lower extremity venous structures. Additional imaging through the proximal calf veins also reveals no thrombus. Limited evaluation of the greater saphenous vein is patent with no thrombus.. The veins were found to be easily compressible with spontaneous blood flow. Non pulsatile flow pattern. CONCLUSIONS No evidence of DVT in the above-mentioned identifiable veins. Dr Placido Garza MD [facility] (Electronically Signed) Final Date: 16 October 2021 17:09 S
--- NOTE | 2021-10-16 08:02 | W.ED.EXTPRO ---
HPI - Extremity Problem General: Chief complaint: Extremity Injury, Lower Stated complaint: Knee replacement swollen,lot of pain Time Seen by Provider: 10/16/21 07:46 Source: patient and family Mode of arrival: wheelchair Limitations: no limitations History of Present Illness: Patient is a 50-year-old male who presents to ED today along with his for concerns of post-op pain, swelling, and bruising to his right lower extremity. Patient underwent right total knee arthroplasty by Dr. Abel 6 days ago. Patient was discharged home with 30 hydrocodone 7.5 mg tablets with instructions for one tab q 4 hours prn pain. Patient states he was taking this medication for the most part as prescribed but states there were a few occasions where he had to take more than directed to control his discomfort. Patient states he had a follow-up appointment at the orthopedic clinic on 10/14 (states this was just a nurse visit) and at that time complained of 8/10 pain. He states he was told by the nurse that she would let Dr. Abel know so he could call in additional pain medications as he was out but /patient states this never happened. They state since that visit he has continued to have pain. He has noticed fairly significant swelling and bruising in the extremity. states patient was not able to stop his Plavix prior to the surgery per his sports reporter. No discharge/drainage from incision that he has noticed. No redness to the joint. MD Complaint: extremity pain, extremity swelling, joint swelling and joint pain Onset (ago): day(s) Pain Consistency: constant Location: right, lower extremity and knee Severity scale (1-10): 9 Relieving factors: nothing Exacerbating factors: range of motion, weight bearing and walking Associated symptoms: Reports no associated symptoms; Deny chest pain or fever(s) Context: recent surgery/procedure Review of Systems Const: Denies: fever(s), chills, body aches, fatigue or malaise Card: Denies: chest pain Resp: Denies: dyspnea, pain on inspiration or hemoptysis GI: Denies: nausea or vomiting Musc: Reports: extremity pain, extremity swelling, joint pain and joint swelling; Denies: neck pain, back pain or joint redness Skin/Breast: Reports: other (R LE bruising ) Neuro: Denies: numbness in extremities or sensory changes PFS ED PFSH: Medical History Abnormal finding on urinalysis Anxiety and depression Atherosclerosis of coronary artery Atherosclerotic heart disease of [place] coronary artery without angina pectoris Bladder wall thickening Cervical spondylosis Chronic migraine Chronic pancreatitis Chronic shortness of breath COPD (chronic obstructive pulmonary disease) Diverticulosis Essential (primary) hypertension GERD (gastroesophageal reflux disease) H. pylori infection Heart attack Hx of coronary angiogram Medical marijuana use Mixed hyperlipidemia Osteoarthritis Pharyngitis Radiculopathy, lumbar region Seizure disorder SOB (shortness of breath) Tobacco dependency Torsion of appendix testis Total bilirubin, elevated Urethral stricture Surgical History H/O chest tube placement H/O left knee surgery H/O neck surgery H/O removal of testicle H/O right knee surgery History of appendectomy History of cholecystectomy Stented coronary artery Family History Brother Parkinson disease Cancer Diabetes Stroke Family/Other Cancer Chronic kidney disease (CKD) Suicide Grandmother CAD (coronary artery disease) Cancer Lung disease Grandfather Dementia Mother Lung disease Father Suicide Denies family history of Clotting disorder Anesthesia complication Bleeding disorder Social History Smoking and tobacco status: current every day smoker (cigars) cigarettes [ Other cigarette details: Had quit but today picked up again] Quit status (tobacco): has tried quititng Smoking risk assessment/counseling performed?: Yes Alcohol intake: never Lives independently: Yes Household members: significant other Current occupational status: disabled History of recent travel: No Current gender identity: Male Physical Exam Const: COMMON NORMALS: no acute distress, patient oriented x3, no limitations and alert GENERAL APPEARANCE: cooperative HENMT: COMMON NORMALS: normocephalic and atraumatic HEAD & SCALP: normocephalic and atraumatic Resp: COMMON NORMALS: normal respiratory effort and clear to auscultation bilaterally AUSCULTATION: clear to auscultation bilaterally Cardio: COMMON NORMALS: regular rate and regular rhythm RATE: regular rate RHYTHM: regular rhythm Extremity: RIGHT LOWER EXTREMITY: Yes knee joint OTHER: Patient's surgical incision looks clean without drainage/discharge or redness. There is no redness to the joint. Patient maintains normal post op ROM and there are no concerns for septic joint based on exam. He has swelling from medial thigh distally that is fairly common following TKA. Calf is supple. He has scattered old/healing ecchymosis to knee joint distally. Patient has palable DP/PT pulses with normal cap refill. Sensation is intact. Neuro: COMMON NORMALS: patient oriented x3, moves all extremities, no focal motor deficits and no sensory deficits noted SENSORIUM/ORIENTATION: Yes alert Skin: NARRATIVE SKIN EXAM: see extremity for pertinent skin findings Course Vital Signs: Vital signs: Vital Signs Temperature 97.6 F 10/16/21 07:53 Pulse Rate 77 10/16/21 08:01 Respiratory Rate 16 10/16/21 08:01 Blood Pressure 99/68 10/16/21 08:01 Pulse Oximetry 98 10/16/21 08:01 MDM - Extremity (Nontraumatic) Medical Decision Making Patient's physical exam reveals no evidence for acute infection/septic joint. Swelling and ecchymosis fairly normal and consistent with postop TKA. US today of the lower extremity reveals no DVT. He has not had any recent injury or trauma to the knee. I do not feel knee imaging or labs at this time would be beneficial. Recommend ice and elevation to help with swelling. Will give patient small amount of pain medications and recommend he try to follow-up with Dr. Abel in the next few days for re-evaluation. Strict return to ED precautions verbally discussed with patient and . Discharge Plan Discharge Patient Disposition: Home Clinical Impression: Acute postoperative pain of right knee Condition: Stable Prescriptions: Changed hydrocodone-acetaminophen 7.5-325 mg tablet 1 tab PO .q4-6 PRN (Reason: pain, severe) Qty: 15 0RF No Action buspirone 30 mg tablet 30 mg PO BID 0RF zonisamide 100 mg capsule 200 mg PO BID 0RF tamsulosin 0.4 mg capsule 0.4 mg PO BEDTIME 0RF nitroglycerin [Nitrostat] 0.4 mg tablet, sublingual 0.4 mg SUBLINGUAL Q5M PRN (Reason: Chest Pain) 0RF albuterol sulfate [ProAir HFA] 90 mcg/actuation HFA aerosol inhaler 2 puff INHALATION Q6H PRN (Reason: Shortness Of Breath) 0RF clonazepam 1 mg tablet 2 mg PO BID PRN (Reason: Anxiety) 0RF Creon 3,000-9,500- 15,000 unit capsule,delayed release(DR/EC) 1 cap PO BID 30 Days Qty: 60 2RF sumatriptan succinate 50 mg tablet See Rx Instructions PO .COMPLEX 0RF Rx Instructions: take 1 tab at onset of headache; if no relief may repeat 1 tab after at least 2 hrs; max = 4 tabs/24 hr PO hydroxyzine HCl 50 mg tablet 50 mg PO TID PRN (Reason: N/V) 0RF clopidogrel 75 mg tablet 75 mg PO DAILY@09 Qty: 90 3RF Label Comments: last day taking it 10/05/21. till after surgery. isosorbide mononitrate 30 mg tablet extended release 24 hr 30 mg PO DAILY Qty: 90 3RF aspirin [Adult Aspirin Regimen] 81 mg tablet,delayed release (DR/EC) 81 mg PO DAILY@09 Qty: 90 3RF ondansetron 4 mg tablet,disintegrating 4 mg PO Q6H PRN (Reason: nausea and vomiting) Qty: 14 0RF pantoprazole 40 mg tablet,delayed release (DR/EC) 40 mg PO BIDWM Qty: 60 0RF quetiapine 50 mg tablet 50 mg PO BEDTIME 0RF atorvastatin 80 mg tablet 80 mg PO DAILY 0RF citalopram [Celexa] 20 mg Tablet 20 mg PO BEDTIME 0RF Rx Instructions: no londer takes celecoxib 200 mg Capsule 200 mg PO Q12H 14 Days Qty: 28 0RF hydrocodone-acetaminophen 7.5-325 mg Tablet 1 tab PO Q4H PRN (Reason: Moderate Pain) 7 Days Qty: 30 0RF Discharge Orders: Discharge ED (Routine); Ordered 10/16/21 Ordered By: Marlen Alanis Referrals: Davy Blanton [Primary Care Provider] - Patient Instructions: Opioid Safety Activity Restrictions/Additional Instructions: [facility] is committed to fighting the nationwide opiate epidemic. We are providing ALL patients with information regarding opiate safety. If you received opiate pain medication during your stay or if you received a prescription for opiate pain medication-please review this handout. If not, you may disregard. Thank you. As we discussed I will prescribe a small amount of further pain medications for your discomfort. You need to follow-up with your surgeon/Dr. Abel this week for reevaluation. You need to taper yourself off of these medications as soon as possible. As we discussed you need to ice and elevate the extremity as much as possible to help with swelling. Your ultrasound today did not show any blood clot. Your incision looks clean and infection-free at this time. 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
[2021-10-16] MEDS: HYDROcodone-acetaminophen 7.5-325 mg Tablet 1 TAB PO (08:24)
[2021-10-16 08:36] VITALS: BP 101/51; PULSE 88; RESP 18; TEMP 36.7; O2SAT 99
--- NOTE | 2021-10-17 10:53 | DCPLANNER ---
Addendum entered by Ignacia Pena 10/27/21 09:10: Patient had a follow up appointment scheduled for 10.25.[address] Abel at ortho - patient did attend appointment. Addendum entered by Ignacia Pena 10/18/21 08:20: Patient has a follow up appointment scheduled for Monday, October 25, 2021 at 2;[address] Abel at ortho. Clinic will call patient with appointment information. Original Note: physician practice market manager had message to schedule a follow up appointment for patient with ortho. physician practice market manager called the ortho clinic, spoke with Maria T, gave clinic patients information. physician practice market manager was told that patients information would be printed and reviewed. Clinic will call patient with appointment information.
== END 2021-10-16 08:40 | disposition home or self-care (01) ==
PROVIDERS: Emergency Provider Physician Assistant; PCP Family Medicine
DX: G89.18 Other acute postprocedural pain (principal); M25.561 Pain in right knee; Z79.82 Long term (current) use of aspirin; Z79.02 Long term (current) use of antithrombotics/antiplatelets; I25.10 Atherosclerotic heart disease of native coronary artery without angina pectoris; J44.9 Chronic obstructive pulmonary disease, unspecified; I10 Essential (primary) hypertension; E78.2 Mixed hyperlipidemia; Z96.651 Presence of right artificial knee joint
CPT/HCPCS: 93971; 99283

== ENCOUNTER 2021-11-12 08:25 | Emergency (ER) | payer MEDICAID, SELFPAY ==
[2021-11-12 08:30] VITALS: BP 123/83; PULSE 102; RESP 14; TEMP 36.4; O2SAT 96; BMI 31.3
--- NOTE | 2021-11-12 08:43 | W.ED.ABDPA2 ---
Documented by User: AWA Liao 11/12/21 12:38 HPI - Abdominal Pain General: Chief Complaint: Abdominal Pain Stated Complaint: N/V, not feeling well Time Seen by Provider: 11/12/21 08:36 History of Present Illness: Patient states he is not felt well for the last 10 days. Said his stomach feels upset. Says he has a history of H. pylori has been treated multiple times here in the ER and with primary care for stomach problems. Said he has felt fidgety and he says he feels better when he rests inside a warm bath and laying in his bed. Patient did have some vomiting 4 days ago but that is improved. Said he just feels sick to his stomach denies any fever chills. Has had a little bit of diarrhea. Associated Symptoms: Reports diarrhea, nausea and other (Fidgety stomach); Denies chills, fever(s) and vomiting Review of Systems Const: Denies: fever(s), chills or body aches Eyes: Denies: eye discomfort ENMT: Denies: throat pain Card: Denies: chest pain Resp: Denies: dyspnea GI: Reports: abdominal pain, nausea, diarrhea and other (Fidgety stomach); Denies: vomiting Skin/Breast: Denies: rash Neuro: Denies: headache(s) Psych: Denies: depression or suicidal ideation PFSH ED PFSH: Medical History Abnormal finding on urinalysis Anxiety and depression Atherosclerosis of coronary artery Atherosclerotic heart disease of [place] coronary artery without angina pectoris Bladder wall thickening Cervical spondylosis Chronic migraine Chronic pancreatitis Chronic shortness of breath COPD (chronic obstructive pulmonary disease) Diverticulosis Essential (primary) hypertension GERD (gastroesophageal reflux disease) H. pylori infection Heart attack Hx of coronary angiogram Medical marijuana use Mixed hyperlipidemia Osteoarthritis Pharyngitis Radiculopathy, lumbar region Seizure disorder SOB (shortness of breath) Tobacco dependency Torsion of appendix testis Total bilirubin, elevated Urethral stricture Surgical History H/O chest tube placement H/O left knee surgery H/O neck surgery H/O removal of testicle H/O right knee surgery History of appendectomy History of cholecystectomy Stented coronary artery Family History Brother Parkinson disease Cancer Diabetes Stroke Family/Other Cancer Chronic kidney disease (CKD) Suicide Grandmother CAD (coronary artery disease) Cancer Lung disease Grandfather Dementia Mother Lung disease Father Suicide Denies family history of Clotting disorder Anesthesia complication Bleeding disorder Social History Smoking and tobacco status: current every day smoker (cigars) cigarettes [ Other cigarette details: Had quit but today picked up again] Quit status (tobacco): has tried quititng Smoking risk assessment/counseling performed?: Yes Alcohol intake: never Lives independently: Yes Household members: significant other Current occupational status: disabled History of recent travel: No Current gender identity: Male Physical Exam Const: COMMON NORMALS: no acute distress, patient oriented x3 and alert HENMT: COMMON NORMALS: normocephalic and external ears normal HEAD & SCALP: normocephalic EXTERNAL EAR: Yes external ears normal Eye: COMMON NORMALS: EOMs intact bilaterally Neck/C-Spine: COMMON NORMALS: no JVD Resp: COMMON NORMALS: normal respiratory effort and No use of accessory muscles Cardio: COMMON NORMALS: no JVD GI: INSPECTION: Yes normal to inspection Extremity: COMMON NORMALS: normal to inspection and full ROM Neuro: COMMON NORMALS: patient oriented x3 SENSORIUM/ORIENTATION: Yes alert Psych: COMMON NORMALS: mental status grossly normal Skin: COMMON NORMALS: no rashes or lesions noted GENERAL SKIN EXAM: no rashes or lesions noted Course Vital Signs: Vital signs: Vital Signs Temperature 97.6 F 11/12/21 08:30 Pulse Rate 80 11/12/21 11:34 Respiratory Rate 16 11/12/21 11:34 Blood Pressure 108/62 11/12/21 11:34 Pulse Oximetry 100 11/12/21 11:34 MDM - Abdominal Pain Medical Decision Making She presents with abdominal discomfort and fidgeting going on last few days patient does say that he has not had any vomiting the last few days but has been nauseated. Has had some diarrhea. Patient's white count is elevated 15.1 potassium is low at 2.8. Patient does take potassium replacement at home. CT was done and shows colitis. Patient's had problems with this in the past. Patient was placed on appropriate antibiotics given potassium replacement and told to follow-up with his primary care provider first next week and get potassium level and exam recheck. Lab Data : 11/12/21 08:58 11/12/21 08:58 Labs/Radiology: Radiology Impressions Abdomen/Pelvis CT 11/12/21 10:13 IMPRESSION: Fluid prominence in the colon could indicate prominent secretions due to infectious/inflammatory enteritis/colitis. COMMENTS: Consistent with the [employer]'s Incidental Findings Committee white paper (J Am Diane Radiol 2018): Any incidental renal lesion less than 1 cm or classified as too small to characterize, or any incidental cystic renal lesion characterized as simple-appearing, is likely benign. No follow-up imaging is recommended for these lesions per consensus recommendations based on imaging criteria. Laboratory Results WBC 15.1 10^3/uL (4.0-10.0) H 11/12/21 08:58 RBC 4.89 10^6/uL (4.1-5.3) 11/12/21 08:58 Hgb 16.1 g/dL (11.7-16.6) 11/12/21 08:58 Hct 46.3 % (42.0-52.0) 11/12/21 08:58 MCV 94.7 fl (80-94) H 11/12/21 08:58 MCH 32.9 pg (28.0-34.0) 11/12/21 08:58 MCHC 34.8 g/dL (30.0-36.0) 11/12/21 08:58 RDW 12.4 % (12.1-15.1) 11/12/21 08:58 Plt Count 398 10^3/cmm (130-400) 11/12/21 08:58 MPV 9.7 fL (7.4-10.4) 11/12/21 08:58 Neut % (Auto) 67.6 % 11/12/21 08:58 Lymph % (Auto) 21.4 % 11/12/21 08:58 [place] % (Auto) 8.9 % 11/12/21 08:58 Eos % (Auto) 0.8 % 11/12/21 08:58 Baso % (Auto) 0.4 % 11/12/21 08:58 Neut # (Auto) 10.18 10^3/uL (1.8-7.7) H 11/12/21 08:58 Lymph # (Auto) 3.2 10^3/uL (0.8-4.8) 11/12/21 08:58 [place] # (Auto) 1.3 10^3/uL (0.2-0.9) H 11/12/21 08:58 Eos # (Auto) 0.1 10^3/uL (0.0-0.8) 11/12/21 08:58 Baso # (Auto) 0.1 10^3/uL (0.0-0.1) 11/12/21 08:58 Nucleated RBC % (auto) 0 % 11/12/21 08:58 Nucleated RBCs # 0.0 /100WBC 11/12/21 08:58 Sodium 127 mmol/L (136-145) L 11/12/21 08:58 Potassium 2.8 mmol/L (3.5-5.1) L* 11/12/21 08:58 Chloride 88 mmol/L (98-107) L 11/12/21 08:58 Carbon Dioxide 19 mmol/L (22-29) L 11/12/21 08:58 Anion Gap 22.8 (5-19) H 11/12/21 08:58 BUN 18 mg/dL (6-20) 11/12/21 08:58 Creatinine 1.1 mg/dL (0.7-1.2) 11/12/21 08:58 GFR Calculation 71.1 mL/min (90-130) L 11/12/21 08:58 Glucose 137 mg/dL (65-115) H 11/12/21 08:58 Calculated Osmolality 268 mOsm/kg (285-295) L 11/12/21 08:58 Calcium 9.9 mg/dL (8.5-10.5) 11/12/21 08:58 Total Bilirubin 1.0 mg/dL (0.15-1.2) 11/12/21 08:58 AST 25 U/L (0-40) 11/12/21 08:58 ALT 13 U/L (0-41) 11/12/21 08:58 Alkaline Phosphatase 115 IU/L (40-130) 11/12/21 08:58 Total Protein 8.2 g/dL (6.6-8.7) 11/12/21 08:58 Albumin 5.1 g/dL (3.5-5.2) 11/12/21 08:58 Globulin 3.1 g/dL (1.3-4.6) 11/12/21 08:58 Lipase 104 U/L (13-60) H 11/12/21 08:58 Urine Color Yellow (Yellow) 11/12/21 11:11 Urine Appearance Clear (CLEAR) 11/12/21 11:11 Urine pH 5 (5-7) 11/12/21 11:11 Ur Specific [place] 1.015 (1.005-1.030) 11/12/21 11:11 Urine Protein Neg (Negative) 11/12/21 11:11 Urine Glucose (UA) Norm (Normal) 11/12/21 11:11 Urine Ketones Negative (Negative) 11/12/21 11:11 Urine Blood 2+ (Negative) H 11/12/21 11:11 Urine Nitrate Negative (Negative) 11/12/21 11:11 Urine Bilirubin Neg (Negative) 11/12/21 11:11 Urine Urobilinogen Norm mg/dL (Negative) 11/12/21 11:11 Ur Leukocyte Esterase Negative (Negative) 11/12/21 11:11 Urine RBC 0-4 /hpf (0-2) H 11/12/21 11:11 Urine WBC Rare /hpf (0-5) 11/12/21 11:11 Ur Squamous Epith Cells 0-4 /hpf (0-5) H 11/12/21 11:11 Amorphous Sediment Not Reportable 11/12/21 11:11 Urine Bacteria Trace /hpf (NONE) 11/12/21 11:11 Urine Mucus 1+ /hpf 11/12/21 11:11 Discharge Plan Discharge Patient Disposition: Home Clinical Impression: Colitis, Hypokalemia Condition: Stable Prescriptions: New Augmentin 500-125 mg tablet 1 tab PO BID Qty: 14 0RF ondansetron 4 mg tablet,disintegrating 4 mg PO TID 2 Days Qty: 6 0RF metronidazole 500 mg tablet 500 mg PO BID 7 Days Qty: 14 0RF No Action buspirone 30 mg tablet 30 mg PO BID 0RF zonisamide 100 mg capsule 200 mg PO BID 0RF tamsulosin 0.4 mg capsule 0.4 mg PO BEDTIME 0RF nitroglycerin [Nitrostat] 0.4 mg tablet, sublingual 0.4 mg SUBLINGUAL Q5M PRN (Reason: Chest Pain) 0RF albuterol sulfate [ProAir HFA] 90 mcg/actuation HFA aerosol inhaler 2 puff INHALATION Q6H PRN (Reason: Shortness Of Breath) 0RF clonazepam 1 mg tablet 2 mg PO BID PRN (Reason: Anxiety) 0RF hydrocodone-acetaminophen 7.5-325 mg tablet 1 tab PO .q4-6 PRN (Reason: pain, severe) 7 Days Qty: 30 0RF Creon 3,000-9,500- 15,000 unit capsule,delayed release(DR/EC) 1 cap PO BID 30 Days Qty: 60 2RF sumatriptan succinate 50 mg tablet See Rx Instructions PO .COMPLEX 0RF Rx Instructions: take 1 tab at onset of headache; if no relief may repeat 1 tab after at least 2 hrs; max = 4 tabs/24 hr PO hydroxyzine HCl 50 mg tablet 50 mg PO TID PRN (Reason: N/V) 0RF clopidogrel 75 mg tablet 75 mg PO DAILY@09 Qty: 90 3RF Label Comments: last day taking it 10/05/21. till after surgery. isosorbide mononitrate 30 mg tablet extended release 24 hr 30 mg PO DAILY Qty: 90 3RF aspirin [Adult Aspirin Regimen] 81 mg tablet,delayed release (DR/EC) 81 mg PO DAILY@09 Qty: 90 3RF acetaminophen-codeine 300-30 mg tablet 1 tab PO Q4H PRN (Reason: pain) 7 Days Qty: 30 0RF ondansetron 4 mg tablet,disintegrating 4 mg PO Q6H PRN (Reason: nausea and vomiting) Qty: 14 0RF pantoprazole 40 mg tablet,delayed release (DR/EC) 40 mg PO BIDWM Qty: 60 0RF quetiapine 50 mg tablet 50 mg PO BEDTIME 0RF atorvastatin 80 mg tablet 80 mg PO DAILY 0RF citalopram [Celexa] 20 mg Tablet 20 mg PO BEDTIME 0RF Rx Instructions: no londer takes Discharge Orders: Discharge ED (Routine); Ordered 11/12/21 Ordered By: Chad Butcher Referrals: Davy Blanton [Primary Care Provider] - Discharge Diet: Advance as tolerated Discharge Activity: Resume usual activity Patient Instructions: Hypokalemia (ED), Colitis (ED) Activity Restrictions/Additional Instructions: Follow-up with medical provider as directed. Take medications as prescribed. Return to the ER or your medical provider if condition worsens. Please read and understand discharge instructions. If any questions ask please. Follow-up with your primary care provider next week and have your potassium level rechecked. Make sure you are taking potassium medicine and it might be roy to double up on it for the next few days. Can take Imodium [id number] for diarrhea. Coding Level of Care Code ED Orthopedically Impaired Teacher for Chg 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 Documented by User: Ramón Simeon DO 11/12/21 16:24 HPI - Abdominal Pain General: Chief Complaint: Abdominal Pain Stated Complaint: N/V, not feeling well Time Seen by Provider: 11/12/21 08:36 PFSH ED PFSH: Medical History Abnormal finding on urinalysis Anxiety and depression Atherosclerosis of coronary artery Atherosclerotic heart disease of [place] coronary artery without angina pectoris Bladder wall thickening Cervical spondylosis Chronic migraine Chronic pancreatitis Chronic shortness of breath COPD (chronic obstructive pulmonary disease) Diverticulosis Essential (primary) hypertension GERD (gastroesophageal reflux disease) H. pylori infection Heart attack Hx of coronary angiogram Medical marijuana use Mixed hyperlipidemia Osteoarthritis Pharyngitis Radiculopathy, lumbar region Seizure disorder SOB (shortness of breath) Tobacco dependency Torsion of appendix testis Total bilirubin, elevated Urethral stricture Surgical History H/O chest tube placement H/O left knee surgery H/O neck surgery H/O removal of testicle H/O right knee surgery History of appendectomy History of cholecystectomy Stented coronary artery Family History Brother Parkinson disease Cancer Diabetes Stroke Family/Other Cancer Chronic kidney disease (CKD) Suicide Grandmother CAD (coronary artery disease) Cancer Lung disease Grandfather Dementia Mother Lung disease Father Suicide Denies family history of Clotting disorder Anesthesia complication Bleeding disorder Social History Smoking and tobacco status: current every day smoker (cigars) cigarettes [ Other cigarette details: Had quit but today picked up again] Quit status (tobacco): has tried quititng Smoking risk assessment/counseling performed?: Yes Alcohol intake: never Lives independently: Yes Household members: significant other Current occupational status: disabled History of recent travel: No Current gender identity: Male Course Consultations: Consultation #1: This chart is being signed as part of departmental policy. I was the attending physician in the emergency department the time this patient was seen by the midlevel clinician. This case was not discussed with me nor did I independently see or evaluate this patient. Vital Signs: Vital signs: Vital Signs Temperature 97.6 F 11/12/21 08:30 Pulse Rate 80 11/12/21 11:34 Respiratory Rate 16 11/12/21 11:34 Blood Pressure 108/62 11/12/21 11:34 Pulse Oximetry 100 11/12/21 11:34 MDM - Abdominal Pain Lab Data : 11/12/21 08:58 11/12/21 08:58 Labs/Radiology: Radiology Impressions Abdomen/Pelvis CT 11/12/21 10:13 IMPRESSION: Fluid prominence in the colon could indicate prominent secretions due to infectious/inflammatory enteritis/colitis. COMMENTS: Consistent with the [employer]'s Incidental Findings Committee white paper (J Am Diane Radiol 2018): Any incidental renal lesion less than 1 cm or classified as too small to characterize, or any incidental cystic renal lesion characterized as simple-appearing, is likely benign. No follow-up imaging is recommended for these lesions per consensus recommendations based on imaging criteria. Laboratory Results WBC 15.1 10^3/uL (4.0-10.0) H 11/12/21 08:58 RBC 4.89 10^6/uL (4.1-5.3) 11/12/21 08:58 Hgb 16.1 g/dL (11.7-16.6) 11/12/21 08:58 Hct 46.3 % (42.0-52.0) 11/12/21 08:58 MCV 94.7 fl (80-94) H 11/12/21 08:58 MCH 32.9 pg (28.0-34.0) 11/12/21 08:58 MCHC 34.8 g/dL (30.0-36.0) 11/12/21 08:58 RDW 12.4 % (12.1-15.1) 11/12/21 08:58 Plt Count 398 10^3/cmm (130-400) 11/12/21 08:58 MPV 9.7 fL (7.4-10.4) 11/12/21 08:58 Neut % (Auto) 67.6 % 11/12/21 08:58 Lymph % (Auto) 21.4 % 11/12/21 08:58 [place] % (Auto) 8.9 % 11/12/21 08:58 Eos % (Auto) 0.8 % 11/12/21 08:58 Baso % (Auto) 0.4 % 11/12/21 08:58 Neut # (Auto) 10.18 10^3/uL (1.8-7.7) H 11/12/21 08:58 Lymph # (Auto) 3.2 10^3/uL (0.8-4.8) 11/12/21 08:58 [place] # (Auto) 1.3 10^3/uL (0.2-0.9) H 11/12/21 08:58 Eos # (Auto) 0.1 10^3/uL (0.0-0.8) 11/12/21 08:58 Baso # (Auto) 0.1 10^3/uL (0.0-0.1) 11/12/21 08:58 Nucleated RBC % (auto) 0 % 11/12/21 08:58 Nucleated RBCs # 0.0 /100WBC 11/12/21 08:58 Sodium 127 mmol/L (136-145) L 11/12/21 08:58 Potassium 2.8 mmol/L (3.5-5.1) L* 11/12/21 08:58 Chloride 88 mmol/L (98-107) L 11/12/21 08:58 Carbon Dioxide 19 mmol/L (22-29) L 11/12/21 08:58 Anion Gap 22.8 (5-19) H 11/12/21 08:58 BUN 18 mg/dL (6-20) 11/12/21 08:58 Creatinine 1.1 mg/dL (0.7-1.2) 11/12/21 08:58 GFR Calculation 71.1 mL/min (90-130) L 11/12/21 08:58 Glucose 137 mg/dL (65-115) H 11/12/21 08:58 Calculated Osmolality 268 mOsm/kg (285-295) L 11/12/21 08:58 Calcium 9.9 mg/dL (8.5-10.5) 11/12/21 08:58 Total Bilirubin 1.0 mg/dL (0.15-1.2) 11/12/21 08:58 AST 25 U/L (0-40) 11/12/21 08:58 ALT 13 U/L (0-41) 11/12/21 08:58 Alkaline Phosphatase 115 IU/L (40-130) 11/12/21 08:58 Total Protein 8.2 g/dL (6.6-8.7) 11/12/21 08:58 Albumin 5.1 g/dL (3.5-5.2) 11/12/21 08:58 Globulin 3.1 g/dL (1.3-4.6) 11/12/21 08:58 Lipase 104 U/L (13-60) H 11/12/21 08:58 Urine Color Yellow (Yellow) 11/12/21 11:11 Urine Appearance Clear (CLEAR) 11/12/21 11:11 Urine pH 5 (5-7) 11/12/21 11:11 Ur Specific [place] 1.015 (1.005-1.030) 11/12/21 11:11 Urine Protein Neg (Negative) 11/12/21 11:11 Urine Glucose (UA) Norm (Normal) 11/12/21 11:11 Urine Ketones Negative (Negative) 11/12/21 11:11 Urine Blood 2+ (Negative) H 11/12/21 11:11 Urine Nitrate Negative (Negative) 11/12/21 11:11 Urine Bilirubin Neg (Negative) 11/12/21 11:11 Urine Urobilinogen Norm mg/dL (Negative) 11/12/21 11:11 Ur Leukocyte Esterase Negative (Negative) 11/12/21 11:11 Urine RBC 0-4 /hpf (0-2) H 11/12/21 11:11 Urine WBC Rare /hpf (0-5) 11/12/21 11:11 Ur Squamous Epith Cells 0-4 /hpf (0-5) H 11/12/21 11:11 Amorphous Sediment Not Reportable 11/12/21 11:11 Urine Bacteria Trace /hpf (NONE) 11/12/21 11:11 Urine Mucus 1+ /hpf 11/12/21 11:11 Discharge Plan Discharge Patient Disposition: Home Clinical Impression: Colitis, Hypokalemia Condition: Stable Prescriptions: New Augmentin 500-125 mg tablet 1 tab PO BID Qty: 14 0RF ondansetron 4 mg tablet,disintegrating 4 mg PO TID 2 Days Qty: 6 0RF metronidazole 500 mg tablet 500 mg PO BID 7 Days Qty: 14 0RF No Action buspirone 30 mg tablet 30 mg PO BID 0RF zonisamide 100 mg capsule 200 mg PO BID 0RF tamsulosin 0.4 mg capsule 0.4 mg PO BEDTIME 0RF nitroglycerin [Nitrostat] 0.4 mg tablet, sublingual 0.4 mg SUBLINGUAL Q5M PRN (Reason: Chest Pain) 0RF albuterol sulfate [ProAir HFA] 90 mcg/actuation HFA aerosol inhaler 2 puff INHALATION Q6H PRN (Reason: Shortness Of Breath) 0RF clonazepam 1 mg tablet 2 mg PO BID PRN (Reason: Anxiety) 0RF hydrocodone-acetaminophen 7.5-325 mg tablet 1 tab PO .q4-6 PRN (Reason: pain, severe) 7 Days Qty: 30 0RF Creon 3,000-9,500- 15,000 unit capsule,delayed release(DR/EC) 1 cap PO BID 30 Days Qty: 60 2RF sumatriptan succinate 50 mg tablet See Rx Instructions PO .COMPLEX 0RF Rx Instructions: take 1 tab at onset of headache; if no relief may repeat 1 tab after at least 2 hrs; max = 4 tabs/24 hr PO hydroxyzine HCl 50 mg tablet 50 mg PO TID PRN (Reason: N/V) 0RF clopidogrel 75 mg tablet 75 mg PO DAILY@09 Qty: 90 3RF Label Comments: last day taking it 10/05/21. till after surgery. isosorbide mononitrate 30 mg tablet extended release 24 hr 30 mg PO DAILY Qty: 90 3RF aspirin [Adult Aspirin Regimen] 81 mg tablet,delayed release (DR/EC) 81 mg PO DAILY@09 Qty: 90 3RF acetaminophen-codeine 300-30 mg tablet 1 tab PO Q4H PRN (Reason: pain) 7 Days Qty: 30 0RF ondansetron 4 mg tablet,disintegrating 4 mg PO Q6H PRN (Reason: nausea and vomiting) Qty: 14 0RF pantoprazole 40 mg tablet,delayed release (DR/EC) 40 mg PO BIDWM Qty: 60 0RF quetiapine 50 mg tablet 50 mg PO BEDTIME 0RF atorvastatin 80 mg tablet 80 mg PO DAILY 0RF citalopram [Celexa] 20 mg Tablet 20 mg PO BEDTIME 0RF Rx Instructions: no londer takes Discharge Orders: Discharge ED (Routine); Ordered 11/12/21 Ordered By: Chad Butcher Referrals: Davy Blanton [Primary Care Provider] - Discharge Diet: Advance as tolerated Discharge Activity: Resume usual activity Patient Instructions: Hypokalemia (ED), Colitis (ED) Activity Restrictions/Additional Instructions: Follow-up with medical provider as directed. Take medications as prescribed. Return to the ER or your medical provider if condition worsens. Please read and understand discharge instructions. If any questions ask please. Follow-up with your primary care provider next week and have your potassium level rechecked. Make sure you are taking potassium medicine and it might be roy to double up on it for the next few days. Can take Imodium [id number] for diarrhea. Coding Level of Care Code ED Orthopedically Impaired Teacher for Go 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
[2021-11-12] MEDS: sodium chloride 0.9% 1,000 ML 999 ML IV (09:14)
[2021-11-12] MEDS: lidocaine 2% viscous 15 ML, aluminum-mag hydrox-simethicon 30 ML, sucralfate oral liq 1 GM PO (09:17)
[2021-11-12 09:36] LABS: Basophils # 0.1 10^3/uL (0.0-0.1); Basophils % 0.4 %; Eosinophils # 0.1 10^3/uL (0.0-0.8); Eosinophils % 0.8 %; Hematocrit 46.3 % (42.0-52.0); Hemoglobin 16.1 g/dL (11.7-16.6); Lymphocytes # 3.2 10^3/uL (0.8-4.8); Lymphocytes % 21.4 %; Mean Corpuscular HGB Conc 34.8 g/dL (30.0-36.0); Mean Corpuscular Hemoglobin 32.9 pg (28.0-34.0); Mean Corpuscular Volume 94.7 fl (80-94); Mean Platelet Volume 9.7 fL (7.4-10.4); Monocytes # 1.3 10^3/uL (0.2-0.9); Monocytes % 8.9 %; Neutrophils # 10.18 10^3/uL (1.8-7.7); Neutrophils % 67.6 %; Nucleated Red Blood Cells % 0 %; Red Blood Count 4.89 10^6/uL (4.1-5.3); Red Cell Distribution Width 12.4 % (12.1-15.1); White Blood Count 15.1 10^3/uL (4.0-10.0)
[2021-11-12] MEDS: LORazepam 1 mg Tablet PO (09:45)
[2021-11-12 09:49] LABS: Alanine Aminotransferase 13 U/L (0-41); Albumin Level 5.1 g/dL (3.5-5.2); Alkaline Phosphatase 115 IU/L (40-130); Aspartate Amino Transferase 25 U/L (0-40); Blood Urea Nitrogen 18 mg/dL (6-20); Calcium 9.9 mg/dL (8.5-10.5); Carbon Dioxide 19 mmol/L (22-29); Chloride 88 mmol/L (98-107); Globulin 3.1 g/dL (1.3-4.6); Glomerular Filtration Rate 71.1 mL/min (90-130); Glucose 137 mg/dL (65-115); Lipase 104 U/L (13-60); Osmolality Calculated 268 mOsm/kg (285-295); Sodium 127 mmol/L (136-145); Total Protein 8.2 g/dL (6.6-8.7)
[2021-11-12 10:05] LABS: Slide Review Slide Review Perform
[2021-11-12 10:06] LABS: Platelet Count 398 10^3/cmm (130-400)
[2021-11-12 10:07] LABS: Anion Gap 22.8 (5-19)
[2021-11-12 10:09] LABS: Potassium 2.8 mmol/L (3.5-5.1)
--- NOTE | 2021-11-12 10:13 | CTR_ITS ---
PROCEDURE INFORMATION: Exam: CT Abdomen And Pelvis With Contrast Exam date and time: 11/12/2021 10:57 AM Age: 50 years old Clinical indication: Abnormal findings; Abnormal lab test; Elevated lipase; Prior surgery; Surgery type: Heart knee; Additional info: Abd discomfort, eleveated lipase TECHNIQUE: Imaging protocol: Computed tomography of the abdomen and pelvis with contrast. Total images: 233 Radiation optimization: All CT scans at this facility use at least one of these dose optimization techniques: automated exposure control; mA and/or kV adjustment per patient size (includes targeted exams where dose is matched to clinical indication); or iterative reconstruction. Contrast material: OMNI 300; Contrast volume: 95 ml; Contrast route: INTRAVENOUS (IV); COMPARISON: CT abdomen pelvis w con* [id number] 02/26/2021 1:37 PM RADIATION DOSE METRICS: Total DLP (mGy-cm): 1407.62 FINDINGS: Lungs: Benign granulomatous disease of the lung is noted. Liver: Hepatic steatosis is evident. Gallbladder and bile ducts: Prior cholecystectomy noted. Pancreas: The pancreas has a normal attenuation and configuration. No masses, necrosis, edema, nor peripancreatic inflammatory changes are detected. Spleen: Normal. No splenomegaly. Adrenal glands: Normal. No mass. Kidneys and ureters: 3 cm largest cyst noted in kidneys that have multiple simple renal cysts. No further evaluation required. Stomach and bowel: Colonic diverticulosis is present without diverticulitis. Fluid prominence in the colon could indicate prominent secretions due to infectious/inflammatory enteritis/colitis. Appendix: No evidence of appendicitis. Intraperitoneal space: Unremarkable. No free air. No significant fluid collection. Arteries: Mild atherosclerotic disease is evident. Veins: Incidental phleboliths noted. Lymph nodes: Unremarkable. No enlarged lymph nodes. Urinary bladder: Unremarkable as visualized. Reproductive: The prostate gland contains benign-appearing calcifications that are likely parenchymal. Bones/joints: Unremarkable. No acute fracture. Soft tissues: Unremarkable. CT/CT abdomen pelvis w con* [id number] IMPRESSION: Fluid prominence in the colon could indicate prominent secretions due to infectious/inflammatory enteritis/colitis. COMMENTS: Consistent with the [employer]'s Incidental Findings Committee white paper (J Am Diane Radiol 2018): Any incidental renal lesion less than 1 cm or classified as too small to characterize, or any incidental cystic renal lesion characterized as simple-appearing, is likely benign. No follow-up imaging is recommended for these lesions per consensus recommendations based on imaging criteria.
[2021-11-12] MEDS: potassium chloride ER 20 mEq Tablet 60 MEQ PO (10:23)
[2021-11-12] MEDS: metoclopramide 5 mg/mL SDV 2 mL IVP (10:23)
[2021-11-12] MEDS: iohexol 300 mg/mL 100 mL Btl IV (10:56)
[2021-11-12 11:31] LABS: Add Urine Microscopic? YES; Bilirubin Urine Neg (Negative); Blood Urine 2+ (Negative); Glucose Urine UA Norm (Normal); Ketones Urine Negative (Negative); Leukocyte Esterase Urine Negative (Negative); Nitrate Urine Negative (Negative); Protein Urine Neg (Negative); Specific Gravity, Urine 1.015 (1.005-1.030); Urine Appearance Clear (CLEAR); Urine Color Yellow (Yellow); Urobilinogen Urine Norm (Negative); pH Urine 5 (5-7)
[2021-11-12 11:34] VITALS: BP 108/62; PULSE 80; RESP 16; O2SAT 100
[2021-11-12 11:34] LABS: Add Urine Culture? No; Bacteria Urine TRACE /hpf; Mucus Urine 1+ /hpf; RBC Urine 0-4 /hpf (0-2); Squamous Epithelial Cell Urine 0-4 /hpf (0-5); WBC Urine RARE /hpf (0-5)
== END 2021-11-12 12:02 | disposition home or self-care (01) ==
PROVIDERS: Emergency Provider Nurse Practitioner Family; PCP Family Medicine
DX: K52.9 Noninfective gastroenteritis and colitis, unspecified (principal); E87.6 Hypokalemia; R11.0 Nausea; F17.210 Nicotine dependence, cigarettes, uncomplicated; Z79.02 Long term (current) use of antithrombotics/antiplatelets; Z86.19 Personal history of other infectious and parasitic diseases
CPT/HCPCS: 74177; 80053; 81001; 83690; 85025; 96361; 96374; 99284; J2765; J7030; Q9967

== ENCOUNTER 2021-11-17 10:12 | Emergency (ER) | payer MEDICAID, SELFPAY ==
[2021-11-17 11:09] VITALS: BP 105/71; PULSE 76; RESP 18; TEMP 36.6; O2SAT 100; BMI 28.3
[2021-11-17 11:53] LABS: Add Urine Microscopic? NO; Charge for UA Resulting for Rev
[2021-11-17 11:55] LABS: Blood Urine Neg (Negative); Glucose Urine UA Norm (Normal); Ketones Urine Negative (Negative); Nitrate Urine Negative (Negative); Protein Urine Neg (Negative); Urine Appearance Clear (CLEAR); Urine Color Yellow (Yellow); pH Urine 6 (5-7)
[2021-11-17 11:56] LABS: Bilirubin Urine Neg (Negative); Leukocyte Esterase Urine Negative (Negative); Urobilinogen Urine Neg (Negative)
--- NOTE | 2021-11-17 12:45 | PC.NURSE ---
Dr. Wilson at bedside assessing patient, then moved from bed 5 to bed 15 for safe patient care. Patient given call light and notified that a nurse would be in shortly.
--- NOTE | 2021-11-17 12:53 | W.ED.GENADLT ---
HPI - General Adult General: Chief complaint: Nausea/Vomiting/Diarrhea Stated complaint: stomach pain Time Seen by Provider: 11/17/21 12:27 History of Present Illness: Patient is a 50-year-old male with history appendectomy and cholecystectomy presenting to the emergency room for concerns of abdominal pain, nausea/vomiting and persistent diarrhea. Patient tells me that for the last week, he has has had significant diarrhea. Last Sunday, patient went to hospital in [facility] and was admitted to the hospital for rehydration and electrolyte correction. Patient tells me that his sodium and potassium was out of whack. At that time, patient was also diagnosed with C. difficile infection. Patient was discharged home on Sunday and started on antibiotics for C. difficile. Patient tells me that since his discharge, he has had nausea and new onset of lower abdominal pain. Patient would like to get that checked out at this time. He denies any melena hematochezia. Patient reports that his diarrhea has largely improved. Patient is on day 2 of antibiotics. Onset:2 weeks Duration:2 weeks Location:home Severity:moderate Associated symptoms: Reports nausea and vomiting; Deny chest pain, dyspnea, rash or palpitations Review of Systems Const: Denies: fever(s) or chills Eyes: Denies: change in vision ENMT: Denies: mouth pain Card: Denies: chest pain or palpitations Resp: Denies: dyspnea or non-productive cough GI: Reports: abdominal pain, nausea, vomiting and diarrhea : Denies: dysuria Musc: Denies: extremity pain Skin/Breast: Denies: rash or new lesions Neuro: Denies: weakness in extremities Psych: Reports: other (Normal mood) Trevon/Lymph: Denies: easy bruising PFSH ED PFSH: Medical History Abnormal finding on urinalysis Anxiety and depression Atherosclerosis of coronary artery Atherosclerotic heart disease of [place] coronary artery without angina pectoris Bladder wall thickening Cervical spondylosis Chronic migraine Chronic pancreatitis Chronic shortness of breath COPD (chronic obstructive pulmonary disease) Diverticulosis Essential (primary) hypertension GERD (gastroesophageal reflux disease) H. pylori infection Heart attack Hx of coronary angiogram Medical marijuana use Mixed hyperlipidemia Osteoarthritis Pharyngitis Radiculopathy, lumbar region Seizure disorder SOB (shortness of breath) Tobacco dependency Torsion of appendix testis Total bilirubin, elevated Urethral stricture Surgical History H/O chest tube placement H/O left knee surgery H/O neck surgery H/O removal of testicle H/O right knee surgery History of appendectomy History of cholecystectomy Stented coronary artery Family History Brother Parkinson disease Cancer Diabetes Stroke Family/Other Cancer Chronic kidney disease (CKD) Suicide Grandmother CAD (coronary artery disease) Cancer Lung disease Grandfather Dementia Mother Lung disease Father Suicide Denies family history of Clotting disorder Anesthesia complication Bleeding disorder Social History Smoking and tobacco status: current every day smoker (cigars) cigarettes [ Other cigarette details: Had quit but today picked up again] Quit status (tobacco): has tried quititng Smoking risk assessment/counseling performed?: Yes Alcohol intake: never Lives independently: Yes Household members: significant other Current occupational status: disabled History of recent travel: No Current gender identity: Male Physical Exam Const: COMMON NORMALS: alert HENMT: COMMON NORMALS: atraumatic HEAD & SCALP: atraumatic MOUTH: moist mucous membranes not abnormal Eye: COMMON NORMALS: EOMs intact bilaterally and conjunctivae normal CONJUNCTIVA: Yes conjunctivae normal Neck/C-Spine: COMMON NORMALS: full ROM and supple Resp: COMMON NORMALS: normal respiratory effort and clear to auscultation bilaterally AUSCULTATION: clear to auscultation bilaterally Cardio: COMMON NORMALS: regular rate RATE: regular rate GI: COMMON NORMALS: Soft to palpation PALPATION: Yes Soft to palpation OTHER: +Mild b/l lower abd discomfort to palpation. NO guarding rebound, guarding, rigidity. No CVA tenderness to percussion. Neg Tan/Neg McBurney's point tenderness, no suprabupic tenderness to palpation. Extremity: COMMON NORMALS: full ROM Neuro: SENSORIUM/ORIENTATION: Yes alert MOTOR EXAM: No Abnormal motor strength present and Other motor observations present (no focal motor deficits) Psych: COMMON NORMALS: speech normal SPEECH: Yes normal speech MOOD & AFFECT: Yes euthymic mood Course Vital Signs: Vital signs: Vital Signs Temperature 97.9 F 11/17/21 11:09 Pulse Rate 76 11/17/21 11:09 Respiratory Rate 18 11/17/21 11:09 Blood Pressure 105/71 11/17/21 11:09 Pulse Oximetry 100 11/17/21 11:09 [facility] - General Adult Medical Decision Making 50-year-old male with history of prior cholecystectomy and appendectomy presenting to the emergency room with lower abdominal discomfort in the setting of nausea/vomiting and diarrhea. Patient has a diagnosis of C. difficile is currently taking antibiotic. On physical exam, patient has mild discomfort bilaterally to palpation of lower abdomen. No guarding no rebound tenderness. Rest of vitals within normal limit. At 12:55 PM, patient elects to leave AGAINST MEDICAL ADVICE prior to labs and imaging. Patient electing to leave AMA. Patient counseled regarding risks of leaving including severe morbidity, brain , hypoxia, arrythmia, , chest pain, or any other unwanted consequences of leaving against medical advice today. Patient verbalizes understanding of the risks and still wishes to leave AMA. Signed AMA paperwork. Patient advised that patient is welcome to return at any time. Was instructed that patient may come back if symptoms continue to persist and that emergent adverse conditions have not fully been ruled out. Patient is A&Ox3 and has capacity and is of sound mind to make decisions. Lab Data Laboratory Results Urine Color Yellow (Yellow) 11/17/21 11:40 Urine Appearance Clear (CLEAR) 11/17/21 11:40 Urine pH 6 (5-7) 11/17/21 11:40 Ur Specific [place] 1.010 (1.005-1.030) 11/17/21 11:40 Urine Protein Neg (Negative) 11/17/21 11:40 Urine Glucose (UA) Norm (Normal) 11/17/21 11:40 Urine Ketones Negative (Negative) 11/17/21 11:40 Urine Blood Neg (Negative) 11/17/21 11:40 Urine Nitrate Negative (Negative) 11/17/21 11:40 Urine Bilirubin Neg (Negative) 11/17/21 11:40 Urine Urobilinogen Neg mg/dL (Negative) 11/17/21 11:40 Ur Leukocyte Esterase Negative (Negative) 11/17/21 11:40 Discharge Plan Discharge Patient Disposition: Left Against Medical Advice Clinical Impression: Abdominal pain, C. difficile diarrhea, Nausea & vomiting Condition: Stable Prescriptions: No Action buspirone 30 mg tablet 30 mg PO BID 0RF zonisamide 100 mg capsule 200 mg PO BID 0RF tamsulosin 0.4 mg capsule 0.4 mg PO BEDTIME 0RF nitroglycerin [Nitrostat] 0.4 mg tablet, sublingual 0.4 mg SUBLINGUAL Q5M PRN (Reason: Chest Pain) 0RF albuterol sulfate [ProAir HFA] 90 mcg/actuation HFA aerosol inhaler 2 puff INHALATION Q6H PRN (Reason: Shortness Of Breath) 0RF clonazepam 1 mg tablet 2 mg PO BID PRN (Reason: Anxiety) 0RF hydrocodone-acetaminophen 7.5-325 mg tablet 1 tab PO .q4-6 PRN (Reason: pain, severe) 7 Days Qty: 30 0RF Creon 3,000-9,500- 15,000 unit capsule,delayed release(DR/EC) 1 cap PO BID 30 Days Qty: 60 2RF sumatriptan succinate 50 mg tablet See Rx Instructions PO .COMPLEX 0RF Rx Instructions: take 1 tab at onset of headache; if no relief may repeat 1 tab after at least 2 hrs; max = 4 tabs/24 hr PO hydroxyzine HCl 50 mg tablet 50 mg PO TID PRN (Reason: N/V) 0RF clopidogrel 75 mg tablet 75 mg PO DAILY@09 Qty: 90 3RF Label Comments: last day taking it 10/05/21. till after surgery. isosorbide mononitrate 30 mg tablet extended release 24 hr 30 mg PO DAILY Qty: 90 3RF aspirin [Adult Aspirin Regimen] 81 mg tablet,delayed release (DR/EC) 81 mg PO DAILY@09 Qty: 90 3RF acetaminophen-codeine 300-30 mg tablet 1 tab PO Q4H PRN (Reason: pain) 7 Days Qty: 30 0RF ondansetron 4 mg tablet,disintegrating 4 mg PO Q6H PRN (Reason: nausea and vomiting) Qty: 14 0RF pantoprazole 40 mg tablet,delayed release (DR/EC) 40 mg PO BIDWM Qty: 60 0RF quetiapine 50 mg tablet 50 mg PO BEDTIME 0RF atorvastatin 80 mg tablet 80 mg PO DAILY 0RF citalopram [Celexa] 20 mg Tablet 20 mg PO BEDTIME 0RF Rx Instructions: no londer takes Augmentin 500-125 mg tablet 1 tab PO BID Qty: 14 0RF metronidazole 500 mg tablet 500 mg PO BID 7 Days Qty: 14 0RF Referrals: Davy Blanton [Primary Care Provider] - Patient Instructions: Abdominal Pain (ED) Coding Level of Care Code ED Panel Machine Operator for Chg 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
--- NOTE | 2021-11-17 13:02 | PC.NURSE ---
Nurse was going into pt nutrition room, pt was trying to leave. Pt got through to door. When questioned, pt stated nobody as taking care of him and he had not received the blankets he asked for. Pt was told it was not safe for him to leave - pt stated he didn't care. Pt refused to sign AMA form.
== END 2021-11-17 13:10 | disposition left against medical advice (07) ==
PROVIDERS: Physician Assistant; Emergency Provider Emergency Medicine; PCP Family Medicine
DX: A04.72 Enterocolitis due to Clostridium difficile, not specified as recurrent (principal); F17.210 Nicotine dependence, cigarettes, uncomplicated; Z53.29 Procedure and treatment not carried out because of patient's decision for other reasons; Z79.891 Long term (current) use of opiate analgesic; Z79.02 Long term (current) use of antithrombotics/antiplatelets; Z79.82 Long term (current) use of aspirin
CPT/HCPCS: 81003; 99281

== ENCOUNTER 2021-12-03 08:01 | Emergency (ER) | payer MEDICAID, SELFPAY ==
[2021-12-03 08:37] VITALS: BP 136/91; PULSE 74; RESP 17; TEMP 36.6; O2SAT 100; BMI 29.0
[2021-12-03 08:43] VITALS: BP 136/91; PULSE 73; RESP 18; O2SAT 99
--- NOTE | 2021-12-03 08:51 | ED_ITS ---
Documented by User: AWA Liao 12/03/21 11:23 HPI - Nausea/Vomiting/Diarrhea General: Chief complaint: Nausea/Vomiting/Diarrhea Stated complaint: N/V Time Seen by Provider: 12/03/21 08:17 History of Present Illness: Patient states that he has had nausea and vomiting with intermittent diarrhea over the last few months. Said he has been in the hospital couple 3 times. Was recently treated for C. difficile at [place] and got better from that. Patient states she has had chronic nausea and vomiting over the years also. Patient believes he is dehydrated presently denies any fever or chills. Associated nausea: Yes Associated symtoms: Reports nausea; Denies chest pain or headache(s) Review of Systems Const: Denies: fever(s), chills or body aches Eyes: Denies: eye discomfort ENMT: Denies: throat pain Card: Denies: chest pain Resp: Denies: dyspnea GI: Reports: abdominal pain (Intermittent), nausea, vomiting and diarrhea (Paretic) Skin/Breast: Denies: rash Neuro: Denies: headache(s) Psych: Denies: depression or suicidal ideation PFSH ED PFSH: Medical History Abnormal finding on urinalysis Anxiety and depression Atherosclerosis of coronary artery Atherosclerotic heart disease of [place] coronary artery without angina pectoris Bladder wall thickening Cervical spondylosis Chronic migraine Chronic pancreatitis Chronic shortness of breath COPD (chronic obstructive pulmonary disease) Diverticulosis Essential (primary) hypertension GERD (gastroesophageal reflux disease) H. pylori infection Heart attack Hx of coronary angiogram Medical marijuana use Mixed hyperlipidemia Osteoarthritis Pharyngitis Radiculopathy, lumbar region Seizure disorder SOB (shortness of breath) Tobacco dependency Torsion of appendix testis Total bilirubin, elevated Urethral stricture Surgical History H/O chest tube placement H/O left knee surgery H/O neck surgery H/O removal of testicle H/O right knee surgery History of appendectomy History of cholecystectomy Stented coronary artery Family History Brother Parkinson disease Cancer Diabetes Stroke Family/Other Cancer Chronic kidney disease (CKD) Suicide Grandmother CAD (coronary artery disease) Cancer Lung disease Grandfather Dementia Mother Lung disease Father Suicide Denies family history of Clotting disorder Anesthesia complication Bleeding disorder Social History Smoking and tobacco status: current every day smoker (cigars) cigarettes [ Other cigarette details: Had quit but today picked up again] Quit status (tobacco): has tried quititng Smoking risk assessment/counseling performed?: Yes Alcohol intake: never Lives independently: Yes Household members: significant other Current occupational status: disabled History of recent travel: No Current gender identity: Male Physical Exam Const: COMMON NORMALS: no acute distress, patient oriented x3 and alert HENMT: COMMON NORMALS: normocephalic and external ears normal HEAD & SCALP: normocephalic EXTERNAL EAR: Yes external ears normal Eye: COMMON NORMALS: EOMs intact bilaterally Neck/C-Spine: COMMON NORMALS: no JVD Resp: COMMON NORMALS: normal respiratory effort and No use of accessory muscles Cardio: COMMON NORMALS: no JVD GI: INSPECTION: Yes normal to inspection Extremity: COMMON NORMALS: normal to inspection and full ROM Neuro: COMMON NORMALS: patient oriented x3 SENSORIUM/ORIENTATION: Yes alert Psych: COMMON NORMALS: mental status grossly normal Skin: COMMON NORMALS: no rashes or lesions noted GENERAL SKIN EXAM: no rashes or lesions noted Course Vital Signs: Vital signs: Vital Signs Temperature 97.9 F 12/03/21 08:37 Pulse Rate 74 12/03/21 10:40 Respiratory Rate 12 12/03/21 10:40 Blood Pressure 161/96 12/03/21 10:40 Pulse Oximetry 96 12/03/21 10:40 MDM - Nausea/Vomiting/Diarrhea Medical Decision Making Presents with chronic nausea and vomiting. Patient is well-known in the ER for multiple visits related this over the years. Patient said he just felt nauseous and vomited few times over the last month. Recently admitted to the hospital at [facility] for dehydration he states. patient seen here recently and treated. Patient labs here did not show any significant difference from previous labs. They appear normal anion gap was slightly high at 19. Patient was given a liter of LR. Also given some promethazine. Patient had no episode of vomiting here. Patient was discharged home with follow-up primary care provider. Lab Data : 12/03/21 08:35 12/03/21 08:35 Laboratory Results WBC 8.7 10^3/uL (4.0-10.0) 12/03/21 08:35 RBC 4.11 10^6/uL (4.1-5.3) 12/03/21 08:35 Hgb 13.5 g/dL (11.7-16.6) 12/03/21 08:35 Hct 39.9 % (42.0-52.0) L 12/03/21 08:35 MCV 97.1 fl (80-94) H 12/03/21 08:35 MCH 32.8 pg (28.0-34.0) 12/03/21 08:35 MCHC 33.8 g/dL (30.0-36.0) 12/03/21 08:35 RDW 12.5 % (12.1-15.1) 12/03/21 08:35 Plt Count 310 10^3/cmm (130-400) 12/03/21 08:35 MPV 9.3 fL (7.4-10.4) 12/03/21 08:35 Neut % (Auto) 78.4 % 12/03/21 08:35 Lymph % (Auto) 14.6 % 12/03/21 08:35 [place] % (Auto) 4.6 % 12/03/21 08:35 Eos % (Auto) 1.7 % 12/03/21 08:35 Baso % (Auto) 0.5 % 12/03/21 08:35 Neut # (Auto) 6.84 10^3/uL (1.8-7.7) 12/03/21 08:35 Lymph # (Auto) 1.3 10^3/uL (0.8-4.8) 12/03/21 08:35 [place] # (Auto) 0.4 10^3/uL (0.2-0.9) 12/03/21 08:35 Eos # (Auto) 0.2 10^3/uL (0.0-0.8) 12/03/21 08:35 Baso # (Auto) 0.0 10^3/uL (0.0-0.1) 12/03/21 08:35 Nucleated RBC % (auto) 0 % 12/03/21 08:35 Nucleated RBCs # 0.0 /100WBC 12/03/21 08:35 Sodium 135 mmol/L (136-145) L 12/03/21 08:35 Potassium 3.5 mmol/L (3.5-5.1) 12/03/21 08:35 Chloride 101 mmol/L (98-107) 12/03/21 08:35 Carbon Dioxide 18 mmol/L (22-29) L 12/03/21 08:35 Anion Gap 19.5 (5-19) H 12/03/21 08:35 BUN 16 mg/dL (6-20) 12/03/21 08:35 Creatinine 0.8 mg/dL (0.7-1.2) 12/03/21 08:35 GFR Calculation 102.7 mL/min (90-130) 12/03/21 08:35 Glucose 145 mg/dL (65-115) H 12/03/21 08:35 Calculated Osmolality 284 mOsm/kg (285-295) L 12/03/21 08:35 Calcium 9.8 mg/dL (8.5-10.5) 12/03/21 08:35 Total Bilirubin 0.4 mg/dL (0.15-1.2) 12/03/21 08:35 AST 20 U/L (0-40) 12/03/21 08:35 ALT 17 U/L (0-41) 12/03/21 08:35 Alkaline Phosphatase 79 IU/L (40-130) 12/03/21 08:35 Total Protein 7.0 g/dL (6.6-8.7) 12/03/21 08:35 Albumin 4.5 g/dL (3.5-5.2) 12/03/21 08:35 Globulin 2.5 g/dL (1.3-4.6) 12/03/21 08:35 Lipase 38 U/L (13-60) 12/03/21 08:35 Discharge Plan Discharge Patient Disposition: Home Clinical Impression: Chronic nausea Condition: Stable Prescriptions: New promethazine 12.5 mg tablet 6.25 mg PO TID PRN (Reason: nausea and vomiting) Qty: 10 0RF Rx Instructions: 3 doses during day; last dose no later than 4 hr before bedtime No Action buspirone 30 mg tablet 30 mg PO BID 0RF zonisamide 100 mg capsule 200 mg PO BID 0RF tamsulosin 0.4 mg capsule 0.4 mg PO BEDTIME 0RF nitroglycerin [Nitrostat] 0.4 mg tablet, sublingual 0.4 mg SUBLINGUAL Q5M PRN (Reason: Chest Pain) 0RF albuterol sulfate [ProAir HFA] 90 mcg/actuation HFA aerosol inhaler 2 puff INHALATION Q6H PRN (Reason: Shortness Of Breath) 0RF clonazepam 1 mg tablet 2 mg PO BID PRN (Reason: Anxiety) 0RF hydrocodone-acetaminophen 7.5-325 mg tablet 1 tab PO .q4-6 PRN (Reason: pain, severe) 7 Days Qty: 30 0RF Creon 3,000-9,500- 15,000 unit capsule,delayed release(DR/EC) 1 cap PO BID 30 Days Qty: 60 2RF sumatriptan succinate 50 mg tablet See Rx Instructions PO .COMPLEX 0RF Rx Instructions: take 1 tab at onset of headache; if no relief may repeat 1 tab after at least 2 hrs; max = 4 tabs/24 hr PO hydroxyzine HCl 50 mg tablet 50 mg PO TID PRN (Reason: N/V) 0RF clopidogrel 75 mg tablet 75 mg PO DAILY@09 Qty: 90 3RF Label Comments: last day taking it 10/05/21. till after surgery. isosorbide mononitrate 30 mg tablet extended release 24 hr 30 mg PO DAILY Qty: 90 3RF aspirin [Adult Aspirin Regimen] 81 mg tablet,delayed release (DR/EC) 81 mg PO DAILY@09 Qty: 90 3RF acetaminophen-codeine 300-30 mg tablet 1 tab PO Q4H PRN (Reason: pain) 7 Days Qty: 30 0RF ondansetron 4 mg tablet,disintegrating 4 mg PO Q6H PRN (Reason: nausea and vomiting) Qty: 14 0RF pantoprazole 40 mg tablet,delayed release (DR/EC) 40 mg PO BIDWM Qty: 60 0RF quetiapine 50 mg tablet 50 mg PO BEDTIME 0RF atorvastatin 80 mg tablet 80 mg PO DAILY 0RF citalopram [Celexa] 20 mg Tablet 20 mg PO BEDTIME 0RF Rx Instructions: no londer takes Augmentin 500-125 mg tablet 1 tab PO BID Qty: 14 0RF Discharge Orders: Discharge ED (Routine); Ordered 12/03/21 Ordered By: Chad Butcher Referrals: Davy Blanton [Primary Care Provider] - Discharge Diet: As Directed Discharge Activity: Increase activity as tolerated Activity Restrictions/Additional Instructions: Follow-up with medical provider as directed. Take medications as prescribed. Return to the ER or your medical provider if condition worsens. Please read and understand discharge instructions. If any questions ask please. Follow-up your provider on Sunday or Sunday. Coding Level of Care Code ED [employer] for Chg 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 Documented by User: Torito Mendosa DO 12/03/21 11:34 HPI - Nausea/Vomiting/Diarrhea General: Chief complaint: Nausea/Vomiting/Diarrhea Stated complaint: N/V Time Seen by Provider: 12/03/21 08:17 PFSH ED PFSH: Medical History Abnormal finding on urinalysis Anxiety and depression Atherosclerosis of coronary artery Atherosclerotic heart disease of [place] coronary artery without angina pectoris Bladder wall thickening Cervical spondylosis Chronic migraine Chronic pancreatitis Chronic shortness of breath COPD (chronic obstructive pulmonary disease) Diverticulosis Essential (primary) hypertension GERD (gastroesophageal reflux disease) H. pylori infection Heart attack Hx of coronary angiogram Medical marijuana use Mixed hyperlipidemia Osteoarthritis Pharyngitis Radiculopathy, lumbar region Seizure disorder SOB (shortness of breath) Tobacco dependency Torsion of appendix testis Total bilirubin, elevated Urethral stricture Surgical History H/O chest tube placement H/O left knee surgery H/O neck surgery H/O removal of testicle H/O right knee surgery History of appendectomy History of cholecystectomy Stented coronary artery Family History Brother Parkinson disease Cancer Diabetes Stroke Family/Other Cancer Chronic kidney disease (CKD) Suicide Grandmother CAD (coronary artery disease) Cancer Lung disease Grandfather Dementia Mother Lung disease Father Suicide Denies family history of Clotting disorder Anesthesia complication Bleeding disorder Social History Smoking and tobacco status: current every day smoker (cigars) cigarettes [ Other cigarette details: Had quit but today picked up again] Quit status (tobacco): has tried quititng Smoking risk assessment/counseling performed?: Yes Alcohol intake: never Lives independently: Yes Household members: significant other Current occupational status: disabled History of recent travel: No Current gender identity: Male Course Vital Signs: Vital signs: Vital Signs Temperature 97.9 F 12/03/21 08:37 Pulse Rate 74 12/03/21 10:40 Respiratory Rate 12 12/03/21 10:40 Blood Pressure 161/96 12/03/21 10:40 Pulse Oximetry 96 12/03/21 10:40 MDM - Nausea/Vomiting/Diarrhea Medical Decision Making Presents with chronic nausea and vomiting. Patient is well-known in the ER for multiple visits related this over the years. Patient said he just felt nauseous and vomited few times over the last month. Recently admitted to the hospital at [facility] for dehydration he states. patient seen here recently and treated. Patient labs here did not show any significant difference from previous labs. They appear normal anion gap was slightly high at 19. Patient was given a liter of LR. Also given some promethazine. Patient had no episode of vomiting here. Patient was discharged home with follow-up primary care provider. Chart reviewed and patient discussed with midlevel. Agree with assessment and plan. Lab Data : 12/03/21 08:35 12/03/21 08:35 Laboratory Results WBC 8.7 10^3/uL (4.0-10.0) 12/03/21 08:35 RBC 4.11 10^6/uL (4.1-5.3) 12/03/21 08:35 Hgb 13.5 g/dL (11.7-16.6) 12/03/21 08:35 Hct 39.9 % (42.0-52.0) L 12/03/21 08:35 MCV 97.1 fl (80-94) H 12/03/21 08:35 MCH 32.8 pg (28.0-34.0) 12/03/21 08:35 MCHC 33.8 g/dL (30.0-36.0) 12/03/21 08:35 RDW 12.5 % (12.1-15.1) 12/03/21 08:35 Plt Count 310 10^3/cmm (130-400) 12/03/21 08:35 MPV 9.3 fL (7.4-10.4) 12/03/21 08:35 Neut % (Auto) 78.4 % 12/03/21 08:35 Lymph % (Auto) 14.6 % 12/03/21 08:35 [place] % (Auto) 4.6 % 12/03/21 08:35 Eos % (Auto) 1.7 % 12/03/21 08:35 Baso % (Auto) 0.5 % 12/03/21 08:35 Neut # (Auto) 6.84 10^3/uL (1.8-7.7) 12/03/21 08:35 Lymph # (Auto) 1.3 10^3/uL (0.8-4.8) 12/03/21 08:35 [place] # (Auto) 0.4 10^3/uL (0.2-0.9) 12/03/21 08:35 Eos # (Auto) 0.2 10^3/uL (0.0-0.8) 12/03/21 08:35 Baso # (Auto) 0.0 10^3/uL (0.0-0.1) 12/03/21 08:35 Nucleated RBC % (auto) 0 % 12/03/21 08:35 Nucleated RBCs # 0.0 /100WBC 12/03/21 08:35 Sodium 135 mmol/L (136-145) L 12/03/21 08:35 Potassium 3.5 mmol/L (3.5-5.1) 12/03/21 08:35 Chloride 101 mmol/L (98-107) 12/03/21 08:35 Carbon Dioxide 18 mmol/L (22-29) L 12/03/21 08:35 Anion Gap 19.5 (5-19) H 12/03/21 08:35 BUN 16 mg/dL (6-20) 12/03/21 08:35 Creatinine 0.8 mg/dL (0.7-1.2) 12/03/21 08:35 GFR Calculation 102.7 mL/min (90-130) 12/03/21 08:35 Glucose 145 mg/dL (65-115) H 12/03/21 08:35 Calculated Osmolality 284 mOsm/kg (285-295) L 12/03/21 08:35 Calcium 9.8 mg/dL (8.5-10.5) 12/03/21 08:35 Total Bilirubin 0.4 mg/dL (0.15-1.2) 12/03/21 08:35 AST 20 U/L (0-40) 12/03/21 08:35 ALT 17 U/L (0-41) 12/03/21 08:35 Alkaline Phosphatase 79 IU/L (40-130) 12/03/21 08:35 Total Protein 7.0 g/dL (6.6-8.7) 12/03/21 08:35 Albumin 4.5 g/dL (3.5-5.2) 12/03/21 08:35 Globulin 2.5 g/dL (1.3-4.6) 12/03/21 08:35 Lipase 38 U/L (13-60) 12/03/21 08:35 Discharge Plan Discharge Patient Disposition: Home Clinical Impression: Chronic nausea Condition: Stable Prescriptions: New promethazine 12.5 mg tablet 6.25 mg PO TID PRN (Reason: nausea and vomiting) Qty: 10 0RF Rx Instructions: 3 doses during day; last dose no later than 4 hr before bedtime No Action buspirone 30 mg tablet 30 mg PO BID 0RF zonisamide 100 mg capsule 200 mg PO BID 0RF tamsulosin 0.4 mg capsule 0.4 mg PO BEDTIME 0RF nitroglycerin [Nitrostat] 0.4 mg tablet, sublingual 0.4 mg SUBLINGUAL Q5M PRN (Reason: Chest Pain) 0RF albuterol sulfate [ProAir HFA] 90 mcg/actuation HFA aerosol inhaler 2 puff INHALATION Q6H PRN (Reason: Shortness Of Breath) 0RF clonazepam 1 mg tablet 2 mg PO BID PRN (Reason: Anxiety) 0RF hydrocodone-acetaminophen 7.5-325 mg tablet 1 tab PO .q4-6 PRN (Reason: pain, severe) 7 Days Qty: 30 0RF Creon 3,000-9,500- 15,000 unit capsule,delayed release(DR/EC) 1 cap PO BID 30 Days Qty: 60 2RF sumatriptan succinate 50 mg tablet See Rx Instructions PO .COMPLEX 0RF Rx Instructions: take 1 tab at onset of headache; if no relief may repeat 1 tab after at least 2 hrs; max = 4 tabs/24 hr PO hydroxyzine HCl 50 mg tablet 50 mg PO TID PRN (Reason: N/V) 0RF clopidogrel 75 mg tablet 75 mg PO DAILY@09 Qty: 90 3RF Label Comments: last day taking it 10/05/21. till after surgery. isosorbide mononitrate 30 mg tablet extended release 24 hr 30 mg PO DAILY Qty: 90 3RF aspirin [Adult Aspirin Regimen] 81 mg tablet,delayed release (DR/EC) 81 mg PO DAILY@09 Qty: 90 3RF acetaminophen-codeine 300-30 mg tablet 1 tab PO Q4H PRN (Reason: pain) 7 Days Qty: 30 0RF ondansetron 4 mg tablet,disintegrating 4 mg PO Q6H PRN (Reason: nausea and vomiting) Qty: 14 0RF pantoprazole 40 mg tablet,delayed release (DR/EC) 40 mg PO BIDWM Qty: 60 0RF quetiapine 50 mg tablet 50 mg PO BEDTIME 0RF atorvastatin 80 mg tablet 80 mg PO DAILY 0RF citalopram [Celexa] 20 mg Tablet 20 mg PO BEDTIME 0RF Rx Instructions: no londer takes Augmentin 500-125 mg tablet 1 tab PO BID Qty: 14 0RF Discharge Orders: Discharge ED (Routine); Ordered 12/03/21 Ordered By: Chad Butcher Referrals: Davy Blanton [Primary Care Provider] - Discharge Diet: As Directed Discharge Activity: Increase activity as tolerated Activity Restrictions/Additional Instructions: Follow-up with medical provider as directed. Take medications as prescribed. Return to the ER or your medical provider if condition worsens. Please read and understand discharge instructions. If any questions ask please. Follow-up your provider on Sunday or Sunday. Coding Level of Care Code ED [employer] Teacher for Go 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
[2021-12-03] MEDS: ondansetron 2 mg/ML SDV 2 mL 4 MG IVP (09:00)
[2021-12-03] MEDS: ketorolac 30 mg/mL INJ IVP (09:00)
[2021-12-03] MEDS: lactated ringers 1,000 ML 999 ML IV (09:00)
[2021-12-03 09:38] LABS: Basophils % 0.5 %; Eosinophils # 0.2 10^3/uL (0.0-0.8); Eosinophils % 1.7 %; Hematocrit 39.9 % (42.0-52.0); Hemoglobin 13.5 g/dL (11.7-16.6); Lymphocytes # 1.3 10^3/uL (0.8-4.8); Lymphocytes % 14.6 %; Mean Corpuscular HGB Conc 33.8 g/dL (30.0-36.0); Mean Corpuscular Hemoglobin 32.8 pg (28.0-34.0); Mean Corpuscular Volume 97.1 fl (80-94); Mean Platelet Volume 9.3 fL (7.4-10.4); Monocytes # 0.4 10^3/uL (0.2-0.9); Monocytes % 4.6 %; Neutrophils # 6.84 10^3/uL (1.8-7.7); Neutrophils % 78.4 %; Nucleated Red Blood Cells % 0 %; Platelet Count 310 10^3/cmm (130-400); Red Blood Count 4.11 10^6/uL (4.1-5.3); Red Cell Distribution Width 12.5 % (12.1-15.1); White Blood Count 8.7 10^3/uL (4.0-10.0)
[2021-12-03 09:52] LABS: Alanine Aminotransferase 17 U/L (0-41); Albumin Level 4.5 g/dL (3.5-5.2); Alkaline Phosphatase 79 IU/L (40-130); Anion Gap 19.5 (5-19); Aspartate Amino Transferase 20 U/L (0-40); Blood Urea Nitrogen 16 mg/dL (6-20); Calcium 9.8 mg/dL (8.5-10.5); Carbon Dioxide 18 mmol/L (22-29); Chloride 101 mmol/L (98-107); Globulin 2.5 g/dL (1.3-4.6); Glomerular Filtration Rate 102.7 mL/min (90-130); Glucose 145 mg/dL (65-115); Lipase 38 U/L (13-60); Osmolality Calculated 284 mOsm/kg (285-295); Potassium 3.5 mmol/L (3.5-5.1); Sodium 135 mmol/L (136-145); Total Bilirubin 0.4 mg/dL (0.15-1.2)
[2021-12-03 09:56] VITALS: BP 151/111; PULSE 91; RESP 12; O2SAT 100
[2021-12-03 10:02] VITALS: BP 161/96; PULSE 75; RESP 11; O2SAT 99
[2021-12-03 10:40] VITALS: BP 161/96; PULSE 74; RESP 12; O2SAT 96
== END 2021-12-03 10:41 | disposition home or self-care (01) ==
PROVIDERS: Emergency Provider Nurse Practitioner Family; PCP Family Medicine
DX: R11.0 Nausea (principal); F17.210 Nicotine dependence, cigarettes, uncomplicated
CPT/HCPCS: 80053; 83690; 85025; 96361; 96374; 96375; 99284; J1885; J2405

== ENCOUNTER → 2021-12-14 08:32 | Outpatient (BNVA) | payer MEDICAID, SELFPAY | PROVIDERS: PCP Family Medicine; Visit Provider Nurse Practitioner Family | DX: Z96.651 Presence of right artificial knee joint (principal) | CPT/HCPCS: 73560; 73565; 99213 ==

== ENCOUNTER → 2021-12-20 13:21 | Outpatient (BNVA) | payer MEDICAID, SELFPAY | PROVIDERS: PCP Family Medicine; Visit Provider Surgery | DX: Z98.890 Other specified postprocedural states (principal); R11.2 Nausea with vomiting, unspecified; A04.72 Enterocolitis due to Clostridium difficile, not specified as recurrent; K86.1 Other chronic pancreatitis | CPT/HCPCS: 99214 ==

== ENCOUNTER → 2022-01-05 15:09 | Outpatient (BNVA) | payer MEDICAID, SELFPAY | PROVIDERS: PCP Family Medicine; Visit Provider Internal Medicine Cardiovascular Disease | DX: I25.10 Atherosclerotic heart disease of native coronary artery without angina pectoris (principal); I10 Essential (primary) hypertension; E78.2 Mixed hyperlipidemia; A04.72 Enterocolitis due to Clostridium difficile, not specified as recurrent; F17.210 Nicotine dependence, cigarettes, uncomplicated | CPT/HCPCS: 99214 ==

== ENCOUNTER 2022-01-09 07:54 | Outpatient (CLI) | payer MEDICAID, SELFPAY ==
[2022-01-09 08:25] LABS: Alanine Aminotransferase 6 U/L (0-41); Albumin Level 4.1 g/dL (3.5-5.2); Alkaline Phosphatase 90 IU/L (40-130); Aspartate Amino Transferase 18 U/L (0-40); Chol HDL Ratio 4.21 mg/dL (1.0-5.00); Cholesterol 139 mg/dL (0-200); Creatine Phosphokinase 67 U/L (39-308); Globulin 3.2 g/dL (1.3-4.6); HDL Cholesterol 33 mg/dL (60-100); LDL Cholesterol Calculated 80 mg/dL (50-129); LDL HDL Ratio 2.42 RATIO (0.00-3.22); Total Bilirubin 0.5 mg/dL (0.15-1.2); Total Protein 7.3 g/dL (6.6-8.7); Triglycerides 128 mg/dL (0-150)
== END 2022-01-09 07:55 | disposition home or self-care (01) ==
LOC: LAB 07:55
PROVIDERS: PCP Family Medicine; Visit Provider Internal Medicine Cardiovascular Disease
DX: E78.2 Mixed hyperlipidemia (principal); N50.811 Right testicular pain; R31.0 Gross hematuria
CPT/HCPCS: 80061; 80076; 81003; 82550; 99213

== ENCOUNTER 2022-01-10 11:48 | Emergency (ER) | payer MEDICAID, SELFPAY ==
--- NOTE | 2022-01-10 12:33 | W.ED.SKABFB ---
HPI - Skin/Abscess/Foreign Bdy General: Chief complaint: Skin/Abscess/Foreign Body Stated complaint: spots on stomach Time Seen by Provider: 01/10/22 12:33 Source: patient Mode of arrival: ambulatory Limitations: no limitations History of Present Illness: Patient is a 51-year-old male who presents to ED today with a complaint of a rash on the right side of his abdomen. He also has a complaint that he has been waking up with bilateral eye drainage. He has had a little bit of a runny nose as well as sneezing and itchy eyes. He reportedly was seen at a walk-in clinic yesterday and diagnosed with shingles to his right abdomen. He states they called in medication for this but he has yet to pick it up from the pharmacy. He states he spoke to somebody in regards to the eye drainage and was told this could be related to his shingles and he needs to come to the ED for evaluation (? patient is a fairly poor historian). MD complaint: rash Onset (ago): day(s) Tetanus up to date: yes Location: generalized (R abdomen) Relieving factors: none Exacerbating factors: none Associated symptoms: Deny chills, fever(s), nausea or vomiting Treatments prior to arrival: none Review of Systems Const: Denies: fever(s), chills or body aches Eyes: Reports: eye discharge and other (itchy eyes); Denies: change in vision, blurry vision, blind spots, photophobia, eye discomfort, eye redness, yellow eyes, floaters or seeing flashes ENMT: Reports: nasal discharge; Denies: throat pain, odynophagia, ear or mastoid pain, ear discharge, nasal congestion, post nasal drip or sinus pain Card: Denies: chest pain, palpitations, irregular heart rhythm, lightheadedness, syncope or dyspnea on exertion Resp: Denies: dyspnea, productive cough or pain on inspiration GI: Denies: abdominal pain, nausea, vomiting, heartburn or diarrhea : Denies: difficulty urinating or dysuria Musc: Denies: neck pain, back pain, extremity pain or joint pain Skin/Breast: Reports: rash Neuro: Denies: headache(s), numbness in extremities, weakness in extremities or sensory changes PFS ED PFSH: Medical History Anxiety and depression Atherosclerosis of coronary artery C. difficile colitis Cervical spondylosis Chronic migraine Chronic pancreatitis COPD (chronic obstructive pulmonary disease) Diverticulosis Essential (primary) hypertension GERD (gastroesophageal reflux disease) H. pylori infection Heart attack Hx of coronary angiogram Medical marijuana use Mixed hyperlipidemia Osteoarthritis Pharyngitis Radiculopathy, lumbar region Seizure disorder SOB (shortness of breath) Torsion of appendix testis Urethral stricture Surgical History H/O chest tube placement H/O left knee surgery H/O neck surgery H/O removal of testicle H/O right knee surgery History of appendectomy History of cholecystectomy Stented coronary artery Family History Brother Parkinson disease Cancer Diabetes Stroke Family/Other Cancer Chronic kidney disease (CKD) Suicide Grandmother CAD (coronary artery disease) Cancer Lung disease Grandfather Dementia Mother Lung disease Father Suicide Denies family history of Clotting disorder Anesthesia complication Bleeding disorder Social History Smoking and tobacco status: current every day smoker cigarettes [ Other cigarette details: Had quit but today picked up again] Quit status (tobacco): has tried quititng Smoking risk assessment/counseling performed?: Yes Alcohol intake: never Lives independently: Yes Household members: significant other Current occupational status: disabled History of recent travel: No Current gender identity: Male Physical Exam Const: COMMON NORMALS: no acute distress, patient oriented x3, no limitations and alert GENERAL APPEARANCE: cooperative ORIENTATION/CONSCIOUSNESS: Yes awake, Yes oriented to person, Yes oriented to place and Yes oriented to time HENMT: COMMON NORMALS: normocephalic, atraumatic, hearing grossly normal bilaterally, external ears normal, EAC's normal, TM's normal bilaterally, Normal external nose present, Normal nasal mucous membranes and turbinates present, moist oral mucous membranes and oropharynx normal HEAD & SCALP: normal to inspection, normocephalic and atraumatic FACE & SINUS: normal facial exam NOSE: Normal external nose present and Normal nasal mucous membranes and turbinates present EXTERNAL EAR: Yes external ears normal EXTERNAL AUDITORY CANAL: EAC's normal TYMPANIC MEMBRANE: TM's normal bilaterally MOUTH: Normal oral and palatal mucosa present, lip normal and tongue normal TEETH & GINGIVA: Yes poor dentition THROAT: posterior oropharynx normal, tonsils normal and uvula midline Eye: COMMON NORMALS: Equal, round and reactive pupils present, EOMs intact bilaterally and conjunctivae normal GENERAL EYE: appearance normal, both eyes and all related structures and normal light reflex PERIORBITAL: periorbital findings normal EYELID: eyelids normal CONJUNCTIVA: Yes conjunctivae normal SCLERA: sclerae normal CORNEA: Yes corneas normal PUPIL: Yes Equal, round and reactive pupils present DIRECT OPHTHALMOSCOPY: Yes normal light reflex GI: GI image (male): 1. small cluster of erythematous vesicular like formation that certainly could be early zoster 2. smaller similar lesion Back/Pelvis: COMMON NORMALS: thoracic and lumbar spine normal to inspection, no thoracic nor lumbar tenderness and thoraco-lumbar ROM normal Extremity: COMMON NORMALS: normal to inspection GENERAL: Yes normal exam except as noted Neuro: ALISA COMA SCALE: document GCS findings [place] coma scale eye opening: Spontaneous [place] coma scale verbal response: Orientated Alisa coma scale motor response: Obey commands [place] coma scale total score: 15 COMMON NORMALS: patient oriented x3, CN's II-XII intact bilaterally, moves all extremities, no focal motor deficits, no sensory deficits noted and gait normal SENSORIUM/ORIENTATION: Yes alert, Yes oriented to person, Yes oriented to place and Yes oriented to time Skin: RASHES: rashes noted (see above) Course Vital Signs: Vital signs: Vital Signs Temperature 98.6 F 01/10/22 12:38 Pulse Rate 69 01/10/22 12:38 Respiratory Rate 18 01/10/22 12:38 Blood Pressure 85/64 01/10/22 12:38 Pulse Oximetry 99 01/10/22 12:38 MDM - Skin/Abscess/Foreign Bdy Medicial Decision Making Patient does have a very small cluster of vesicular-like lesions to the right side of his abdomen that certainly could be early zoster. Patient states he already has antivirals and steroids called into the pharmacy for this he just has yet to pick them up. Certainly I recommend he do so promptly. In regards to his eye drainage and other nonspecific URI complaints-he complains of bilateral eye matting in the mornings accompanied by rhinorrhea, itching, and sneezing. This sounds more like allergic rhinitis. He has no eye pain/visual loss. I have no concerns for herpes zoster ophthalmicus, retinal necrosis, or triny stauffer. Return to ED precautions given. Discharge Plan Discharge Patient Disposition: Home Clinical Impression: Rash Condition: Stable Prescriptions: No Action zonisamide 100 mg capsule 200 mg PO BID 0RF tamsulosin 0.4 mg capsule 0.4 mg PO BEDTIME 0RF nitroglycerin [Nitrostat] 0.4 mg tablet, sublingual 0.4 mg SUBLINGUAL Q5M PRN (Reason: Chest Pain) 0RF albuterol sulfate [ProAir HFA] 90 mcg/actuation HFA aerosol inhaler 2 puff INHALATION Q6H PRN (Reason: Shortness Of Breath) 0RF clonazepam 1 mg tablet 2 mg PO BID PRN (Reason: Anxiety) 0RF buspirone 30 mg tablet 30 mg PO DAILY 0RF Creon 3,000-9,500- 15,000 unit capsule,delayed release(DR/EC) 1 cap PO BID 30 Days Qty: 60 2RF sumatriptan succinate 50 mg tablet See Rx Instructions PO .COMPLEX 0RF Rx Instructions: take 1 tab at onset of headache; if no relief may repeat 1 tab after at least 2 hrs; max = 4 tabs/24 hr PO hydroxyzine HCl 50 mg tablet 50 mg PO TID PRN (Reason: N/V) 0RF penicillin G potassium 20 million unit recon soln 1 mmu IM ONCE 0RF atorvastatin 80 mg tablet 80 mg PO DAILY Qty: 100 3RF aspirin [Adult Aspirin Regimen] 81 mg tablet,delayed release (DR/EC) 81 mg PO DAILY@09 Qty: 100 3RF clopidogrel 75 mg tablet 75 mg PO DAILY@09 Qty: 100 3RF Label Comments: last day taking it 10/05/21. till after surgery. isosorbide mononitrate 30 mg tablet extended release 24 hr 30 mg PO DAILY Qty: 100 3RF ondansetron 4 mg tablet,disintegrating 4 mg PO Q6H PRN (Reason: nausea and vomiting) Qty: 14 0RF pantoprazole 40 mg tablet,delayed release (DR/EC) 40 mg PO BIDWM Qty: 60 0RF quetiapine 50 mg tablet 50 mg PO BEDTIME 0RF promethazine 12.5 mg tablet 6.25 mg PO TID PRN (Reason: nausea and vomiting) Qty: 10 0RF Rx Instructions: 3 doses during day; last dose no later than 4 hr before bedtime Discharge Orders: Discharge ED (Routine); Ordered 01/10/22 Ordered By: Marlen Alanis Referrals: Davy Blanton [Primary Care Provider] - Coding Level of Care Code ED General Ii 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
[2022-01-10 12:38] VITALS: BP 85/64; PULSE 69; RESP 18; TEMP 37; O2SAT 99; BMI 28.2
== END 2022-01-10 12:53 | disposition home or self-care (01) ==
PROVIDERS: Emergency Provider Physician Assistant; PCP Family Medicine
DX: R21 Rash and other nonspecific skin eruption (principal)
CPT/HCPCS: 99282

== ENCOUNTER 2022-01-14 06:52 | Emergency (ER) | payer MEDICAID, SELFPAY ==
[2022-01-14 07:12] VITALS: BP 109/71; PULSE 71; RESP 17; TEMP 36.6; O2SAT 97; BMI 28.2
--- NOTE | 2022-01-14 07:23 | W.ED.GENADLT ---
HPI - General Adult General: Chief complaint: General Medical Stated complaint: lower back pain Time Seen by Provider: 01/14/22 07:07 Source: patient Mode of arrival: ambulatory Limitations: no limitations History of Present Illness: 51-year-old male presents emergency room complaining of left-sided flank pain radiating down to the left groin. He has history of nephrolithiasis. He has not had any hematuria or dysuria urgency or frequency. He states his worse with movement began yesterday after he tried to mow his lawn. No fever sweats or chills. Onset (ago): hour(s) Location: back Radiation: other (Into the left groin) Quality: aching Pain Consistency: constant Relieving factors: immobilization Exacerbating factors: movement Associated symptoms: Deny chest pain, confusion, cough, diaphoresis, decreased appetite, dyspnea, fevers/chills, headache(s), malaise, nausea, rash, palpitations, seizures, short of breath, syncope, vomiting or weakness Treatments prior to arrival: none Review of Systems Const: Denies: fever(s), chills, malaise or diaphoresis ENMT: Denies: throat pain, ear or mastoid pain, nasal discharge or nasal congestion Card: Denies: chest pain, palpitations or syncope Resp: Denies: dyspnea GI: Denies: abdominal pain, nausea or vomiting : Reports: flank pain; Denies: difficulty urinating, dysuria, urinary frequency or urinary urgency Skin/Breast: Denies: rash Neuro: Denies: headache(s) or confusion PFS ED PFSH: Medical History Anxiety and depression Atherosclerosis of coronary artery C. difficile colitis Cervical spondylosis Chronic migraine Chronic pancreatitis COPD (chronic obstructive pulmonary disease) Diverticulosis Essential (primary) hypertension GERD (gastroesophageal reflux disease) H. pylori infection Heart attack Hx of coronary angiogram Medical marijuana use Mixed hyperlipidemia Osteoarthritis Pharyngitis Radiculopathy, lumbar region Seizure disorder SOB (shortness of breath) Torsion of appendix testis Urethral stricture Surgical History H/O chest tube placement H/O left knee surgery H/O neck surgery H/O removal of testicle H/O right knee surgery History of appendectomy History of cholecystectomy Stented coronary artery Family History Brother Parkinson disease Cancer Diabetes Stroke Family/Other Cancer Chronic kidney disease (CKD) Suicide Grandmother CAD (coronary artery disease) Cancer Lung disease Grandfather Dementia Mother Lung disease Father Suicide Denies family history of Clotting disorder Anesthesia complication Bleeding disorder Social History Smoking and tobacco status: current every day smoker cigarettes [ Other cigarette details: Had quit but today picked up again] Quit status (tobacco): has tried quititng Smoking risk assessment/counseling performed?: Yes Alcohol intake: never Lives independently: Yes Household members: significant other Current occupational status: disabled History of recent travel: No Current gender identity: Male Physical Exam Const: COMMON NORMALS: no acute distress GENERAL APPEARANCE: cooperative and comfortable ORIENTATION/CONSCIOUSNESS: Yes awake, Yes oriented to person, Yes oriented to place and Yes oriented to time HENMT: COMMON NORMALS: normocephalic, atraumatic and hearing grossly normal bilaterally HEAD & SCALP: normocephalic and atraumatic Neck/C-Spine: COMMON NORMALS: no JVD Resp: COMMON NORMALS: normal respiratory effort, No retractions, No use of accessory muscles and clear to auscultation bilaterally AUSCULTATION: clear to auscultation bilaterally Cardio: COMMON NORMALS: no JVD, regular rate, regular rhythm and No murmurs present (Cardio) RATE: regular rate RHYTHM: regular rhythm GI: COMMON NORMALS: Soft to palpation and No hepatosplenomegaly present AUSCULTATION: Yes normoactive bowel sounds PALPATION: Yes Soft to palpation, No Tenderness to palpation present (GI), No Guarding due to palpation present (GI) and Yes No hepatosplenomegaly present Extremity: COMMON NORMALS: normal to inspection, capillary refill normal, no clubbing, cyanosis or edema, no calf tenderness and no pedal edema Neuro: SENSORIUM/ORIENTATION: Yes oriented to person, Yes oriented to place and Yes oriented to time OTHER: Neurovascular intact in lower extremities straight leg is negative Skin: COMMON NORMALS: no rashes or lesions noted GENERAL SKIN EXAM: no rashes or lesions noted Course Vital Signs: Vital signs: Vital Signs Temperature 97.8 F 01/14/22 07:12 Pulse Rate 71 01/14/22 07:12 Respiratory Rate 15 01/14/22 07:55 Blood Pressure 109/71 01/14/22 07:12 Pulse Oximetry 97 01/14/22 07:12 [facility] - General Adult Medical Decision Making Patient has mild cystitis as well as a strained muscle in his back. Prednisone taper can continue to use anti-inflammatories. Bactrim DS twice daily for 7 days push fluids follow-up with primary care Medical Records I reviewed the patient's medical records. Lab Data I reviewed the patient's lab results. : 01/14/22 07:35 01/14/22 07:35 Laboratory Results WBC 7.5 10^3/uL (4.0-10.0) 01/14/22 07:35 RBC 3.89 10^6/uL (4.1-5.3) L 01/14/22 07:35 Hgb 12.6 g/dL (11.7-16.6) 01/14/22 07:35 Hct 36.5 % (42.0-52.0) L 01/14/22 07:35 MCV 93.8 fl (80-94) 01/14/22 07:35 MCH 32.4 pg (28.0-34.0) 01/14/22 07:35 MCHC 34.5 g/dL (30.0-36.0) 01/14/22 07:35 RDW 12.5 % (12.1-15.1) 01/14/22 07:35 Plt Count 211 10^3/cmm (130-400) 01/14/22 07:35 MPV 9.1 fL (7.4-10.4) 01/14/22 07:35 Neut % (Auto) 65.7 % 01/14/22 07:35 Lymph % (Auto) 24.3 % 01/14/22 07:35 [place] % (Auto) 5.6 % 01/14/22 07:35 Eos % (Auto) 3.1 % 01/14/22 07:35 Baso % (Auto) 0.9 % 01/14/22 07:35 Neut # (Auto) 4.93 10^3/uL (1.8-7.7) 01/14/22 07:35 Lymph # (Auto) 1.8 10^3/uL (0.8-4.8) 01/14/22 07:35 [place] # (Auto) 0.4 10^3/uL (0.2-0.9) 01/14/22 07:35 Eos # (Auto) 0.2 10^3/uL (0.0-0.8) 01/14/22 07:35 Baso # (Auto) 0.1 10^3/uL (0.0-0.1) 01/14/22 07:35 Nucleated RBC % (auto) 0 % 01/14/22 07:35 Nucleated RBCs # 0.0 /100WBC 01/14/22 07:35 Sodium 142 mmol/L (136-145) 01/14/22 07:35 Potassium 3.1 mmol/L (3.5-5.1) L 01/14/22 07:35 Chloride 109 mmol/L (98-107) H 01/14/22 07:35 Carbon Dioxide 20 mmol/L (22-29) L 01/14/22 07:35 Anion Gap 16.1 (5-19) 01/14/22 07:35 BUN 12 mg/dL (6-20) 01/14/22 07:35 Creatinine 0.9 mg/dL (0.7-1.2) 01/14/22 07:35 GFR Calculation 89.3 mL/min (90-130) L 01/14/22 07:35 Glucose 109 mg/dL (65-115) 01/14/22 07:35 Calculated Osmolality 294 mOsm/kg (285-295) 01/14/22 07:35 Calcium 8.9 mg/dL (8.5-10.5) 01/14/22 07:35 Total Bilirubin 0.5 mg/dL (0.15-1.2) 01/14/22 07:35 AST 11 U/L (0-40) 01/14/22 07:35 ALT 8 U/L (0-41) 01/14/22 07:35 Alkaline Phosphatase 111 IU/L (40-130) 01/14/22 07:35 Total Protein 6.8 g/dL (6.6-8.7) 01/14/22 07:35 Albumin 4.2 g/dL (3.5-5.2) 01/14/22 07:35 Globulin 2.6 g/dL (1.3-4.6) 01/14/22 07:35 Lipase 26 U/L (13-60) 01/14/22 07:35 Urine Color Yellow (Yellow) 01/14/22 07:59 Urine Appearance Clear (CLEAR) 01/14/22 07:59 Urine pH 5 (5-7) 01/14/22 07:59 Ur Specific [place] 1.020 (1.005-1.030) 01/14/22 07:59 Urine Protein Neg (Negative) 01/14/22 07:59 Urine Glucose (UA) Norm (Normal) 01/14/22 07:59 Urine Ketones 1+ (Negative) H 01/14/22 07:59 Urine Blood 2+ (Negative) H 01/14/22 07:59 Urine Nitrate Negative (Negative) 01/14/22 07:59 Urine Bilirubin Neg (Negative) 01/14/22 07:59 Urine Urobilinogen 1 mg/dL (Negative) H 01/14/22 07:59 Ur Leukocyte Esterase Negative (Negative) 01/14/22 07:59 Urine RBC 5-10 /hpf (0-2) H 01/14/22 07:59 Urine WBC 10-15 /hpf (0-5) H 01/14/22 07:59 Ur Squamous Epith Cells 5-10 /hpf (0-5) H 01/14/22 07:59 Amorphous Sediment Not Reportable 01/14/22 07:59 Urine Bacteria Trace /hpf (NONE) 01/14/22 07:59 Discharge Plan Discharge Patient Disposition: Home Clinical Impression: Cystitis Condition: Stable Prescriptions: New Bactrim DS 800-160 mg tablet 1 tab PO BID 7 Days Qty: 14 0RF prednisone 20 mg tablet 20 mg PO TID Qty: 15 0RF Rx Instructions: 1 p.o. 3 times daily x3 days, 1 p.o. twice daily x2 days, 1 p.o. daily x2 days No Action zonisamide 100 mg capsule 200 mg PO BID 0RF tamsulosin 0.4 mg capsule 0.4 mg PO BEDTIME 0RF nitroglycerin [Nitrostat] 0.4 mg tablet, sublingual 0.4 mg SUBLINGUAL Q5M PRN (Reason: Chest Pain) 0RF albuterol sulfate [ProAir HFA] 90 mcg/actuation HFA aerosol inhaler 2 puff INHALATION Q6H PRN (Reason: Shortness Of Breath) 0RF clonazepam 1 mg tablet 2 mg PO BID PRN (Reason: Anxiety) 0RF buspirone 30 mg tablet 30 mg PO DAILY 0RF Creon 3,000-9,500- 15,000 unit capsule,delayed release(DR/EC) 1 cap PO BID 30 Days Qty: 60 2RF sumatriptan succinate 50 mg tablet See Rx Instructions PO .COMPLEX 0RF Rx Instructions: take 1 tab at onset of headache; if no relief may repeat 1 tab after at least 2 hrs; max = 4 tabs/24 hr PO atorvastatin 80 mg tablet 80 mg PO DAILY Qty: 100 3RF aspirin [Adult Aspirin Regimen] 81 mg tablet,delayed release (DR/EC) 81 mg PO DAILY@09 Qty: 100 3RF clopidogrel 75 mg tablet 75 mg PO DAILY@09 Qty: 100 3RF isosorbide mononitrate 30 mg tablet extended release 24 hr 30 mg PO DAILY Qty: 100 3RF pantoprazole 40 mg tablet,delayed release (DR/EC) 40 mg PO BIDWM Qty: 60 0RF quetiapine 50 mg tablet 50 mg PO BEDTIME 0RF acyclovir 800 mg Tablet 800 mg PO 5XD 0RF Rx Instructions: space evenly during waking hours potassium chloride 20 mEq tablet,ER particles/crystals 20 meq PO BID 0RF Discharge Orders: Discharge ED (Routine); Ordered 01/14/22 Ordered By: Torito Mendosa Referrals: Davy Blanton [Primary Care Provider] - Discharge Diet: Clear Liquid Discharge Activity: Increase activity as tolerated Patient Instructions: Opioid Safety Coding Level of Care Code ED Hospice Clinical Marketer for Shayyg 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
[2022-01-14 07:44] LABS: Basophils # 0.1 10^3/uL (0.0-0.1); Basophils % 0.9 %; Eosinophils # 0.2 10^3/uL (0.0-0.8); Eosinophils % 3.1 %; Hematocrit 36.5 % (42.0-52.0); Hemoglobin 12.6 g/dL (11.7-16.6); Lymphocytes # 1.8 10^3/uL (0.8-4.8); Lymphocytes % 24.3 %; Mean Corpuscular HGB Conc 34.5 g/dL (30.0-36.0); Mean Corpuscular Hemoglobin 32.4 pg (28.0-34.0); Mean Corpuscular Volume 93.8 fl (80-94); Mean Platelet Volume 9.1 fL (7.4-10.4); Monocytes # 0.4 10^3/uL (0.2-0.9); Monocytes % 5.6 %; Neutrophils # 4.93 10^3/uL (1.8-7.7); Neutrophils % 65.7 %; Nucleated Red Blood Cells % 0 %; Platelet Count 211 10^3/cmm (130-400); Red Blood Count 3.89 10^6/uL (4.1-5.3); Red Cell Distribution Width 12.5 % (12.1-15.1); White Blood Count 7.5 10^3/uL (4.0-10.0)
[2022-01-14 07:55] VITALS: RESP 15
[2022-01-14] MEDS: morphine 4 mg/mL SDV 1 mL IVP (07:55)
[2022-01-14] MEDS: diphenhydrAMINE 50 mg/mL SDV 1mL IM (08:04)
[2022-01-14] MEDS: dexamethasone 10 mg/mL INJ IM (08:05)
[2022-01-14] MEDS: orphenadrine 30 mg/mL Inj 2 mL 60 MG IM (08:05)
[2022-01-14 08:06] LABS: Alanine Aminotransferase 8 U/L (0-41); Albumin Level 4.2 g/dL (3.5-5.2); Alkaline Phosphatase 111 IU/L (40-130); Anion Gap 16.1 (5-19); Aspartate Amino Transferase 11 U/L (0-40); Blood Urea Nitrogen 12 mg/dL (6-20); Calcium 8.9 mg/dL (8.5-10.5); Carbon Dioxide 20 mmol/L (22-29); Chloride 109 mmol/L (98-107); Globulin 2.6 g/dL (1.3-4.6); Glomerular Filtration Rate 89.3 mL/min (90-130); Glucose 109 mg/dL (65-115); Lipase 26 U/L (13-60); Osmolality Calculated 294 mOsm/kg (285-295); Potassium 3.1 mmol/L (3.5-5.1); Sodium 142 mmol/L (136-145); Total Bilirubin 0.5 mg/dL (0.15-1.2); Total Protein 6.8 g/dL (6.6-8.7)
[2022-01-14 09:08] LABS: Add Urine Microscopic? YES; Bilirubin Urine Neg (Negative); Blood Urine 2+ (Negative); Glucose Urine UA Norm (Normal); Ketones Urine 1+ (Negative); Leukocyte Esterase Urine Negative (Negative); Nitrate Urine Negative (Negative); Protein Urine Neg (Negative); Urine Appearance Clear (CLEAR); Urine Color Yellow (Yellow); Urobilinogen Urine 1 mg/dL (Negative); pH Urine 5 (5-7)
[2022-01-14 09:09] LABS: Add Urine Culture? No; Bacteria Urine TRACE /hpf
[2022-01-14 10:20] VITALS: BP 115/73; PULSE 60; RESP 17; O2SAT 98
== END 2022-01-14 09:51 | disposition home or self-care (01) ==
PROVIDERS: Emergency Provider Family Medicine; PCP Family Medicine
DX: N30.90 Cystitis, unspecified without hematuria (principal); F17.210 Nicotine dependence, cigarettes, uncomplicated
CPT/HCPCS: 80053; 81001; 83690; 85025; 96372; 96374; 99284; J1100; J1200; J2270; J2360

== ENCOUNTER 2022-01-24 11:49 | Outpatient (CLI) | payer MEDICAID, SELFPAY ==
--- NOTE | 2022-01-24 11:53 | CT_ITS ---
WS: [id number] CT ABDOMEN AND PELVIS WITH CONTRAST HISTORY: ACUTE RLQ PAIN TECHNIQUE: Imaging performed of the abdomen and pelvis with IV contrast. Single phase imaging of the abdomen. Coronal and sagittal reformats are submitted. All CT scans at [facility] use at [address] one of these dose optimization techniques: automated exposure control; mA and/or kV adjustment per patient size (includes targeted exams where dose is matched to clinical indication); or iterative re construction. IV CONTRAST: Omnipaque 300; 95 mL IV. Oral contrast: Yes. DLP: 1060.83 mGy.cm COMPARISON: 11/12/2021 Lower thorax: Benign granuloma LEFT lung base. Heart is normal size. No hiatal hernia. Liver/biliary system: Liver is mildly enlarged. Focal hepatic steatosis along the falciform ligament. Portal vein is normally enhancing. Gallbladder: Status post cholecystectomy. Pancreas: Normal size pancreas and pancreatic duct. No adjacent inflammation. Spleen: Normal size spleen. No mass or infarct. Adrenal glands: Normal. Right kidney: No solid mass. Several small cysts. The largest measures 2.8 cm in the mid kidney. Left kidney: Normal size kidney. Several small cortical cysts. These are too small to characterize. T he largest measures 1.6 cm and is stable from the posterior kidney. Aorta: Mild atherosclerosis with no aneurysm. Lymphadenopathy: None. Free fluid: None. GI tract: There is significant fecal retention beginning in the cecum through the hepatic and transve rse colon to the splenic flexure. No stricture or mass identified. Distal colon contains numerous div erticula without acute inflammation. No obstructive pattern. Appendix is been removed. Normally diste nded stomach. No small bowel obstruction. Abdominal wall: Unremarkable abdominal wall. No hernia. Pelvis: Mild diffuse wall thickening of the urinary bladder. Bladder wall measures up to 13 mm. No fr ee fluid or adenopathy in the pelvis. Prostate gland is mildly enlarged containing central calcificat ions. Bones: No osteoblastic or osteolytic bone disease. CT/CT abdomen pelvis w con* [id number] IMPRESSION: 1. Significant fecal retention beginning from the cecum to the splenic flexure . No obstructing mass is identified. 2. Distal colon diverticulosis without acute diverticulitis. 3. No adenopathy or ascites. 4. Bilateral renal cysts. 5. Prior appendectomy and cholecystectomy. 6. Diffuse bladder wall thickening and mild prostate enlargement.
[2022-01-24] MEDS: iohexol 300 mg/mL 100 mL Btl IV (14:10)
[2022-01-24] MEDS: barium sulfate 450 mL Oral Susp PO (14:10)
== END 2022-01-24 11:50 | disposition home or self-care (01) ==
LOC: RAD 11:50
PROVIDERS: PCP Family Medicine; Visit Provider Physician Assistant
DX: R10.31 Right lower quadrant pain (principal); K56.41 Fecal impaction; K57.90 Diverticulosis of intestine, part unspecified, without perforation or abscess without bleeding; N28.1 Cyst of kidney, acquired; Z90.49 Acquired absence of other specified parts of digestive tract; N40.0 Benign prostatic hyperplasia without lower urinary tract symptoms
CPT/HCPCS: 74177

== ENCOUNTER → 2022-03-08 10:19 | Outpatient (BNVA) | payer MEDICAID, SELFPAY | PROVIDERS: PCP Family Medicine; Visit Provider Orthopaedic Surgery | DX: Z96.651 Presence of right artificial knee joint (principal); M54.50 Low back pain, unspecified; M54.10 Radiculopathy, site unspecified | CPT/HCPCS: 73560; 73565; 99213 ==

== ENCOUNTER 2022-05-05 09:15 | Emergency (ER) | payer MEDICAID, SELFPAY ==
[2022-05-05 09:21] VITALS: BP 96/70; PULSE 83; RESP 15; TEMP 36.6; O2SAT 97; BMI 27.4
--- NOTE | 2022-05-05 09:32 | ED_ITS ---
HPI - Neck Pain/Injury General: Chief Complaint: Neck Pain/Injury Stated Complaint: pain on neck Time Seen by Provider: 05/05/22 09:21 Source: patient Mode of arrival: ambulatory Limitations: no limitations PFSH ED PFSH: Medical History Anxiety and depression Atherosclerosis of coronary artery C. difficile colitis Cervical spondylosis Chronic migraine Chronic pancreatitis COPD (chronic obstructive pulmonary disease) Diverticulosis Essential (primary) hypertension GERD (gastroesophageal reflux disease) H. pylori infection Heart attack Hx of coronary angiogram Medical marijuana use Mixed hyperlipidemia Osteoarthritis Pharyngitis Radiculopathy, lumbar region Seizure disorder SOB (shortness of breath) Torsion of appendix testis Urethral stricture Surgical History H/O chest tube placement H/O left knee surgery H/O neck surgery H/O removal of testicle H/O right knee surgery History of appendectomy History of cholecystectomy Stented coronary artery Family History Brother Parkinson disease Cancer Diabetes Stroke Family/Other Cancer Chronic kidney disease (CKD) Suicide Grandmother CAD (coronary artery disease) Cancer Lung disease Grandfather Dementia Mother Lung disease Father Suicide Denies family history of Clotting disorder Anesthesia complication Bleeding disorder Social History Smoking and tobacco status: current every day smoker cigarettes [ Other cigarette details: Had quit but today picked up again] Quit status (tobacco): has tried quititng Smoking risk assessment/counseling performed?: Yes Alcohol intake: never Lives independently: Yes Household members: significant other Current occupational status: disabled History of recent travel: No Current gender identity: Male Course Vital Signs: Vital signs: Vital Signs Temperature 97.9 F 05/05/22 09:21 Pulse Rate 83 05/05/22 09:21 Respiratory Rate 15 05/05/22 09:21 Blood Pressure 96/70 05/05/22 09:21 Pulse Oximetry 97 05/05/22 09:21 Oxygen Delivery Me thod 05/05/22 09:21 Discharge Plan Discharge Condition: Stable Prescriptions: No Action zonisamide 100 mg capsule 200 mg PO BID tamsulosin 0.4 mg capsule 0.4 mg PO BEDTIME nitroglycerin [Nitrostat] 0.4 mg tablet, sublingual 0.4 mg SUBLINGUAL Q5M PRN (Reason: Chest Pain) albuterol sulfate [ProAir HFA] 90 mcg/actuation HFA aerosol inhaler 2 puff INHALATION Q6H PRN (Reason: Shortness Of Breath) clonazepam 1 mg tablet 2 mg PO BID PRN (Reason: Anxiety) buspirone 30 mg tablet 30 mg PO DAILY Creon 3,000-9,500- 15,000 unit capsule,delayed release(DR/EC) 1 cap PO BID 30 Days Qty: 60 2RF sumatriptan succinate 50 mg tablet See Rx Instructions PO .COMPLEX Rx Instructions: take 1 tab at onset of headache; if no relief may repeat 1 tab after at least 2 hrs; max = 4 tabs/24 hr PO atorvastatin 80 mg tablet 80 mg PO DAILY Qty: 100 3RF aspirin [Adult Aspirin Regimen] 81 mg tablet,delayed release (DR/EC) 81 mg PO DAILY@09 Qty: 100 3RF clopidogrel 75 mg tablet 75 mg PO DAILY@09 Qty: 100 3RF isosorbide mononitrate 30 mg tablet extended release 24 hr 30 mg PO DAILY Qty: 100 3RF pantoprazole 40 mg tablet,delayed release (DR/EC) 40 mg PO BIDWM Qty: 60 0RF quetiapine 50 mg tablet 50 mg PO BEDTIME acyclovir 800 mg Tablet 800 mg PO 5XD Rx Instructions: space evenly during waking hours potassium chloride 20 mEq tablet,ER particles/crystals 20 meq PO BID prednisone 20 mg tablet 20 mg PO TID Qty: 15 0RF Rx Instructions: 1 p.o. 3 times daily x3 days, 1 p.o. twice daily x2 days, 1 p.o. daily x2 days Referrals: Amanda Simon FNP [Primary Care Provider] - Coding Level of Care Code ED [employer] for [employer]
--- NOTE | 2022-05-05 09:36 | US_ITS ---
WS: [id number] INDICATION: RIGHT submandibular mass TECHNIQUE: Ultrasound soft tissue area of concern FINDINGS: Complex hypoechoic collection in the area of concern measuring 7.4 x 2.2 x 7.3 cm suspiciou s for abscess. This demonstrates through transmission. No internal vascularity. Recommend correlation with infection. This can be followed up or further evaluated with contrast-enhanced neck CT. Recomme nd follow-up to resolution to exclude cystic or necrotic neoplasm. US/US soft tissue head neck [id number] IMPRESSION: Complex hypoechoic collection in the area of concern measuring 7.4 x 2.2 x 7.3 cm suspicious for abscess.
--- NOTE | 2022-05-05 10:03 | ED_ITS ---
HPI - Neck Pain/Injury General: Chief Complaint: Neck Pain/Injury Stated Complaint: pain on neck Time Seen by Provider: 05/05/22 09:21 Source: patient Mode of arrival: ambulatory History of Present Illness: 51-year-old male presents emergency room with complaint of swollen area in the right submandibular region. It is tender to touch he has no molar teeth left at this point. He has not had any jaw pain. He has had a little bit of discomfort with swallowing but is able to swallow without any difficulty. He had noticed a small lump last night but it was not inflamed or tender. He denies any fever sweats or chills. Patient has a history of diabetes mellitus coronary artery disease and recurrent pancreatitis chronic abdominal pain. MD complaint: neck pain Onset (ago): hour(s) Severity: moderate Quality: aching Duration: constant Relieving factors: none Exacerbating factors: other (Palpation) Associated symptoms: Reports swollen glands; Denies dysphagia, difficulty walking, dizziness, fevers/chills, headache(s), nausea, tingling or weakness Treatments prior to arrival: none Review of Systems Const: Denies: fever(s), chills, body aches, change in appetite, fatigue or malaise ENMT: Denies: throat pain, ear or mastoid pain, nasal discharge or nasal congestion Card: Denies: chest pain, edema, dyspnea on exertion or orthopnea Resp: Denies: dyspnea, productive cough or non-productive cough GI: Denies: nausea or dysphagia : Denies: flank pain, dysuria, urinary frequency or urinary urgency Skin/Breast: Denies: rash or pruritus Neuro: Denies: headache(s), difficulty walking or dizziness PFS ED PFSH: Medical History 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 difficile colitis Cervical spondylosis Chronic migraine Chronic pancreatitis COPD (chronic obstructive pulmonary disease) Diverticulosis Essential (primary) hypertension GERD (gastroesophageal reflux disease) H. pylori infection Heart attack Hx of coronary angiogram Medical marijuana use Mixed hyperlipidemia Osteoarthritis Pharyngitis Radiculopathy, lumbar region Seizure disorder SOB (shortness of breath) Torsion of appendix testis Urethral stricture Surgical History H/O chest tube placement H/O left knee surgery H/O neck surgery H/O removal of testicle H/O right knee surgery History of appendectomy History of cholecystectomy Stented coronary artery Family History Brother Parkinson disease Cancer Diabetes Stroke Family/Other Cancer Chronic kidney disease (CKD) Suicide Grandmother CAD (coronary artery disease) Cancer Lung disease Grandfather Dementia Mother Lung disease Father Suicide Denies family history of Clotting disorder Anesthesia complication Bleeding disorder Social History Smoking and tobacco status: current every day smoker (cigars, 2 ) cigarettes [ Other cigarette details: Had quit but today picked up again] Quit status (tobacco): has tried quititng Smoking risk assessment/counseling performed?: Yes Alcohol intake: never Lives independently: Yes Household members: significant other Current occupational status: disabled History of recent travel: No Current gender identity: Male Physical Exam Const: GENERAL APPEARANCE: cooperative and comfortable ORIENTATION/CONSCIOUSNESS: Yes awake, Yes oriented to person, Yes oriented to place and Yes oriented to time HENMT: COMMON NORMALS: normocephalic, atraumatic, hearing grossly normal bilaterally, external ears normal, EAC's normal, TM's normal bilaterally, Normal nasal mucous membranes and turbinates present, moist oral mucous membranes and oropharynx normal HEAD & SCALP: normocephalic and atraumatic NOSE: Normal nasal mucous membranes and turbinates present EXTERNAL EAR: Yes external ears normal EXTERNAL AUDITORY CANAL: EAC's normal TYMPANIC MEMBRANE: TM's normal bilaterally Neck/C-Spine: COMMON NORMALS: full ROM and supple OTHER: Isolated right tender submandibular lymphadenopathy nonfluctuant. Resp: COMMON NORMALS: normal respiratory effort, No retractions, No use of accessory muscles and clear to auscultation bilaterally AUSCULTATION: clear to auscultation bilaterally Cardio: COMMON NORMALS: regular rate, regular rhythm and No murmurs present (Cardio) RATE: regular rate RHYTHM: regular rhythm GI: COMMON NORMALS: Soft to palpation and No hepatosplenomegaly present AUSCULTATION: Yes normoactive bowel sounds PALPATION: Yes Soft to palpation, No Tenderness to palpation present (GI), No Guarding due to palpation present (GI) and Yes No hepatosplenomegaly present Extremity: COMMON NORMALS: normal to inspection, capillary refill normal, no clubbing, cyanosis or edema, no calf tenderness and no pedal edema Neuro: SENSORIUM/ORIENTATION: Yes oriented to person, Yes oriented to place and Yes oriented to time Skin: COMMON NORMALS: no rashes or lesions noted GENERAL SKIN EXAM: no rashes or lesions noted Course Vital Signs: Vital signs: Vital Signs Temperature 97.9 F 05/05/22 09:21 Pulse Rate 60 05/05/22 13:25 Respiratory Rate 18 05/05/22 13:25 Blood Pressure 103/58 05/05/22 11:55 Pulse Oximetry 99 05/05/22 13:25 Oxygen Delivery Me thod 05/05/22 11:55 MDM - Neck Pain/Injury Medical Decision Making CT concerning for acute parotitis. Antibiotics given we will make arrangements for follow-up with ENT. Presents of dental abscess. No facial nerve palsies. Patient vies return to emergency room for any worsening symptoms. Medical Records I reviewed the patient's medical records. Lab Data I reviewed the patient's lab results. : 05/05/22 09:50 Radiology Impressions Head/Neck Ultrasound 05/05/22 09:36 IMPRESSION: Complex hypoechoic collection in the area of concern measuring 7.4 x 2.2 x 7.3 cm suspicious for abscess. Neck CT 05/05/22 10:39 IMPRESSION: 1. Tiny peripheral enhancing 5 x 7 mm low-attenuation lesion involving the tail RIGHT parotid gland suspicious for small intraparotid abscess corresponding to the ultrasound findings. Recommend correlation for acute parotiditis. 2. Adjacent intraparenchymal parotid calculus measuring 3 mm. 3. Inflammatory stranding and edema in the overlying soft tissues and platysma. 4. Recommend follow-up above findings to resolution to exclude neoplasm. 5. No other suspicious findings. Laboratory Results WBC 7.8 10^3/uL (4.0-10.0) 05/05/22 09:50 RBC 3.99 10^6/uL (4.1-5.3) L 05/05/22 09:50 Hgb 13.4 g/dL (11.7-16.6) 05/05/22 09:50 Hct 39.7 % (42.0-52.0) L 05/05/22 09:50 MCV 99.5 fl (80-94) H 05/05/22 09:50 MCH 33.6 pg (28.0-34.0) 05/05/22 09:50 MCHC 33.8 g/dL (30.0-36.0) 05/05/22 09:50 RDW 12.3 % (12.1-15.1) 05/05/22 09:50 Plt Count 208 10^3/cmm (130-400) 05/05/22 09:50 MPV 9.5 fL (7.4-10.4) 05/05/22 09:50 Neut % (Auto) 64.2 % 05/05/22 09:50 Lymph % (Auto) 25.9 % 05/05/22 09:50 Dixie % (Auto) 6.7 % 05/05/22 09:50 Eos % (Auto) 2.3 % 05/05/22 09:50 Baso % (Auto) 0.6 % 05/05/22 09:50 Neut # (Auto) 5.00 10^3/uL (1.8-7.7) 05/05/22 09:50 Lymph # (Auto) 2.0 10^3/uL (0.8-4.8) 05/05/22 09:50 Dixie # (Auto) 0.5 10^3/uL (0.2-0.9) 05/05/22 09:50 Eos # (Auto) 0.2 10^3/uL (0.0-0.8) 05/05/22 09:50 Baso # (Auto) 0.1 10^3/uL (0.0-0.1) 05/05/22 09:50 Nucleated RBC % (auto) 0 % 05/05/22 09:50 Nucleated RBCs # 0.0 /100WBC 05/05/22 09:50 Discharge Plan Discharge Patient Disposition: Home Clinical Impression: Acute parotitis Condition: Stable Prescriptions: New amoxicillin-pot clavulanate 875-125 mg tablet 1 tab PO BID Qty: 20 0RF No Action zonisamide 100 mg capsule 200 mg PO BID tamsulosin 0.4 mg capsule 0.4 mg PO QAM albuterol sulfate [ProAir HFA] 90 mcg/actuation HFA aerosol inhaler 2 puff INHALATION Q4H PRN (Reason: Shortness Of Breath) buspirone 30 mg tablet 30 mg PO QAM pantoprazole 40 mg tablet,delayed release (DR/EC) 40 mg PO BIDWM Qty: 60 0RF quetiapine 50 mg tablet 50 mg PO BEDTIME potassium chloride 20 mEq tablet,ER particles/crystals 20 meq PO BID PRN (Reason: unknown) ondansetron HCl 4 mg tablet 4 mg PO Q6H PRN (Reason: Nausea And Vomiting) clonazepam 2 mg tablet 2 mg PO BID PRN (Reason: Anxiety) nicotine 21 mg/24 hr patch 24 hour 1 patch transdermal DAILY Nitrostat 0.4 mg Tablet, Sublingual 0.4 mg SUBLINGUAL Q5M PRN (Reason: Chest Pain) Rx Instructions: do not exceed 3 doses per episode lactulose 10 gram/15 mL solution 30 ml PO DAILY PRN (Reason: Constipation) atorvastatin 80 mg tablet 80 mg PO QAM isosorbide mononitrate 30 mg tablet extended release 24 hr 30 mg PO QAM clopidogrel 75 mg tablet 75 mg PO QAM Adult Aspirin Regimen 81 mg tablet,delayed release (DR/EC) 81 mg PO QAM Discharge Orders: Discharge ED (Routine); Ordered 05/05/22 Ordered By: Torito Mendosa Referrals: Amanda Simon FNP [Primary Care Provider] - Discharge Diet: Usual diet Discharge Activity: Increase activity as tolerated Patient Instructions: Opioid Safety, Pain Management Activity Restrictions/Additional Instructions: Case management make arrangements for follow-up with ENT. Coding Level of Care Code ED Supervisor [employer] Exam Comprehensive
[2022-05-05 10:13] LABS: Basophils # 0.1 10^3/uL (0.0-0.1); Basophils % 0.6 %; Eosinophils # 0.2 10^3/uL (0.0-0.8); Eosinophils % 2.3 %; Hematocrit 39.7 % (42.0-52.0); Hemoglobin 13.4 g/dL (11.7-16.6); Lymphocytes % 25.9 %; Mean Corpuscular HGB Conc 33.8 g/dL (30.0-36.0); Mean Corpuscular Hemoglobin 33.6 pg (28.0-34.0); Mean Corpuscular Volume 99.5 fl (80-94); Mean Platelet Volume 9.5 fL (7.4-10.4); Monocytes # 0.5 10^3/uL (0.2-0.9); Monocytes % 6.7 %; Neutrophils % 64.2 %; Nucleated Red Blood Cells % 0 %; Platelet Count 208 10^3/cmm (130-400); Red Blood Count 3.99 10^6/uL (4.1-5.3); Red Cell Distribution Width 12.3 % (12.1-15.1); White Blood Count 7.8 10^3/uL (4.0-10.0)
--- NOTE | 2022-05-05 10:39 | CT_ITS ---
WS: [id number] CT NECK TECHNIQUE: Contrast-enhanced CT of the neck with coronal and sagittal reformatted images. CLINICAL INFORMATION: abscess COMPARISON: Ultrasound earlier today DLP: 311.[address] scans at [facility] use at least one of these dose optimization techniques: automated e xposure control; mA and/or kV adjustment per patient size (includes targeted exams where dose is matc hed to clinical indication); or iterative reconstruction. FINDINGS: In the area of concern, there is a subtle peripheral enhancing central low-attenuation lesion involvi ng the tail of the RIGHT parotid gland measuring approximately 5 x 7 mm corresponding to the ultrasou nd findings. This demonstrates peripheral enhancement suspicious for small intraparotid abscess. Tiny adjacent parenchymal calculus measuring 3 mm. Findings suspicious for parotiditis with intraparotid abscess formation. Inflammatory stranding and edema involving the overlying soft tissues and platysma . No visualized calculi involving the distal parotid duct. LEFT parotid gland is normal. Normal submandibular glands. Normal posterior nasopharynx. Normal parap haryngeal fat. No evidence of supraglottic or glottic mass. Normal subglottic airway. Thyroid gland i s normal. Emphysematous changes in the lung apices. Partially visualized intracranial contents appear normal. Paranasal sinuses and mastoid air cells wel l aerated. No cervical lymphadenopathy. Straightening of the normal cervical lordosis. ACDF C5-C7. CT/CT neck w con* [id number] IMPRESSION: 1. Tiny peripheral enhancing 5 x 7 mm low-attenuation lesion involving the [place] l RIGHT parotid gland suspicious for small intraparotid abscess corresponding t o the ultrasound findings. Recommend correlation for acute parotiditis. 2. Adjacent intraparenchymal parotid calculus measuring 3 mm. 3. Inflammatory stranding and edema in the overlying soft tissues and platysma . 4. Recommend follow-up above findings to resolution to exclude neoplasm. 5. No other suspicious findings.
--- NOTE | 2022-05-05 10:45 | PC.PHAR ---
Addendum entered by Aspen Estevez 05/05/22 10:50: pt states the metoprolol tartrate 25mg take 12.5mg daily filled 04/05/22 30d/s was dced Original Note: pt states he takes care of his own medications-pt states he still takes buspar 30mg daily ext med history shows last filled 12/07/21 30d/s for 30mg bid-pt state he is taking clonazepam 2mg bid prn filled on 04/08/22 30d/s pt states he also has 1mg tid filled 04/06/22 30d/s-pt states he takes kcl 20meq bid prn ext med history shows last filled 12/13/21 30d/s-pt states he hasnt filled creon for a long time rx last written 04/19/21 ext med history doesnt show when last filled pt states he hasnt had in about 3 or so weeks states he doesnt take like he is suppose to and states he is completely out states he is going to talk to his pcp about getting it back
[2022-05-05 11:55] VITALS: BP 103/58; PULSE 90; RESP 18; O2SAT 94
[2022-05-05 13:25] VITALS: PULSE 60; RESP 18; O2SAT 99
--- NOTE | 2022-05-05 15:31 | DCPLANNER ---
Addendum entered by Ignacia Pena 07/19/22 11:29: Patient had follow up appointment scheduled with ENT - patient did attend appointment. Addendum entered by Ignacia Pena 05/18/22 11:06: Patient has a follow up appointment scheduled for Sunday, May 24, 2022 at 1:[address] Alex at ENT. Clinic will call patient with appointment information. Original Note: instructional design manager had message to schedule a follow up appointment for patient with ENT. instructional design manager sent patients information to the front office staff at ENT. Patients information will be printed and reviewed. Clinic will call patient with appointment information.
== END 2022-05-05 13:27 | disposition home or self-care (01) ==
PROVIDERS: Emergency Provider Family Medicine; PCP Nurse Practitioner Family
DX: K11.21 Acute sialoadenitis (principal)
CPT/HCPCS: 70491; 76536; 85025; 99284; Q9967

== ENCOUNTER → 2022-05-10 10:44 | Outpatient (BNVA) | payer MEDICAID, SELFPAY | PROVIDERS: PCP Nurse Practitioner Family; Visit Provider Otolaryngology | DX: K11.21 Acute sialoadenitis (principal); F17.210 Nicotine dependence, cigarettes, uncomplicated | CPT/HCPCS: 99203; 99204 ==

== ENCOUNTER 2022-05-18 10:59 | Outpatient (CLI) | payer MEDICAID, SELFPAY ==
--- NOTE | 2022-05-18 11:15 | MR_ITS ---
WS: [id number] MRI LUMBAR SPINE NONCONTRAST HISTORY: lower back pain COMPARISON: 09/03/2013 TECHNIQUE: Sagittal and axial multisequence imaging is submitted. Anterior cervical fusion hardware in the cervical spine. Normal lumbar alignment with no compression fractures or marrow edema. Disc spaces and vertebral body heights are well-preserved. Conus terminates normally at L1-2 disc level. L1-L2: Normal. L2-L3: Normal. L3-L4: Mild disc bulging with ligamentum flavum and facet arthritis. Very mild narrowing of the farhad annalise, LEFT greater than RIGHT. Mild disc encroachment upon the L4 traversing nerve roots but no displa cement. L4-L5: Mild disc bulging encroaching into the subarticular recesses and central canal. Mild central w ith bilateral subarticular recess and foraminal stenosis. No high-grade stenosis. L5-S1: Mild disc bulging with bilateral facet joint arthritis and ligamentum flavum hypertrophy. Mild bilateral foraminal narrowing. Small masses from the cortex of the kidneys. Previously described and thought to be cysts. Cannot fur ther characterize on this examination. MR/MR lumbar spine wo con* [id number] IMPRESSION: 1. No high-grade central stenosis or disc protrusions. 2. Mild progression of degenerative disc disease and facet arthritis from L3-4 L4-5. 3. Mild central with bilateral subarticular recess and foraminal stenosis at L 4-5 due to disc disease and facet disease. 4. Very mild bilateral foraminal narrowing at L5-S1. 5. Mild bilateral foraminal narrowing at L3-4, LEFT greater than RIGHT.
== END 2022-05-18 11:00 | disposition home or self-care (01) ==
LOC: RAD 11:01
PROVIDERS: PCP Nurse Practitioner Family; Visit Provider Orthopaedic Surgery
DX: M51.36 Other intervertebral disc degeneration, lumbar region (principal); M47.816 Spondylosis without myelopathy or radiculopathy, lumbar region; M48.061 Spinal stenosis, lumbar region without neurogenic claudication
CPT/HCPCS: 72148

== ENCOUNTER → 2022-05-24 13:21 | Outpatient (BNVA) | payer MEDICAID, SELFPAY | PROVIDERS: PCP Nurse Practitioner Family; Visit Provider Otolaryngology | DX: K11.21 Acute sialoadenitis (principal); F17.210 Nicotine dependence, cigarettes, uncomplicated | CPT/HCPCS: 99212; 99213 ==

== ENCOUNTER → 2022-06-13 10:14 | Outpatient (BNVA) | payer MEDICAID, SELFPAY | PROVIDERS: PCP Nurse Practitioner Family; Visit Provider Orthopaedic Surgery | DX: M48.062 Spinal stenosis, lumbar region with neurogenic claudication (principal) | CPT/HCPCS: 99204 ==

== ENCOUNTER 2022-06-29 14:40 | Emergency (ER) | payer MEDICAID, SELFPAY ==
[2022-06-29 14:56] VITALS: BP 131/89; PULSE 78; RESP 14; TEMP 36.7; O2SAT 98; BMI 27.6
[2022-06-29 16:18] VITALS: BP 117/86; PULSE 72; RESP 14; TEMP 36.7; O2SAT 98
--- NOTE | 2022-06-29 18:44 | W.ED.ABDPA2 ---
HPI - Abdominal Pain General: Chief Complaint: Abdominal Pain Stated Complaint: abd and chest pain Time Seen by Provider: 06/29/22 18:37 Source: patient Mode of arrival: ambulatory Limitations: no limitations History of Present Illness: 51-year-old male who states that he has been having some cough congestion along with generalized body aches for last 3 to 4 days he states he supposed to have a colonoscopy on the did the bowel prep and been having some nausea and vomiting since and he states today his vomiting is actually improved but he states he feels like he is dehydrated and has body aches he denies any shortness of breath. 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 difficile colitis Cervical spondylosis Chronic migraine Chronic pancreatitis COPD (chronic obstructive pulmonary disease) Diverticulosis Essential (primary) hypertension GERD (gastroesophageal reflux disease) H. pylori infection Heart attack Hx of coronary angiogram Medical marijuana use Mixed hyperlipidemia Osteoarthritis Pharyngitis Radiculopathy, lumbar region Seizure disorder SOB (shortness of breath) Torsion of appendix testis Urethral stricture Surgical History H/O chest tube placement H/O left knee surgery H/O neck surgery H/O removal of testicle H/O right knee surgery History of appendectomy History of cholecystectomy Stented coronary artery Family History Brother Parkinson disease Cancer Diabetes Stroke Family/Other Cancer Chronic kidney disease (CKD) Suicide Grandmother CAD (coronary artery disease) Cancer Lung disease Grandfather Dementia Mother Lung disease Father Suicide Denies family history of Clotting disorder Anesthesia complication Bleeding disorder Social History Smoking and tobacco status: current every day smoker cigarettes [ Other cigarette details: Had quit but today picked up again] Quit status (tobacco): has tried quititng Smoking risk assessment/counseling performed?: Yes Alcohol intake: never Lives independently: Yes Household members: significant other Current occupational status: disabled History of recent travel: No Current gender identity: Male Physical Exam Const: COMMON NORMALS: no acute distress, patient oriented x3 and healthy appearing HENMT: COMMON NORMALS: normocephalic and atraumatic HEAD & SCALP: normocephalic and atraumatic Eye: COMMON NORMALS: Equal, round and reactive pupils present and EOMs intact bilaterally PUPIL: Yes Equal, round and reactive pupils present Neck/C-Spine: COMMON NORMALS: full ROM and supple Chest: COMMONS NORMALS: normal inspection of the chest and normal palpation of entire chest wall Resp: COMMON NORMALS: normal respiratory effort, No retractions, No use of accessory muscles and clear to auscultation bilaterally AUSCULTATION: clear to auscultation bilaterally Cardio: COMMON NORMALS: regular rate, regular rhythm and No murmurs present (Cardio) RATE: regular rate RHYTHM: regular rhythm GI: COMMON NORMALS: Normal to inspection, nondistended, normoactive bowel sounds present, Soft to palpation, non-tender and no masses PALPATION: Yes Soft to palpation Extremity: COMMON NORMALS: normal to inspection and full ROM Neuro: COMMON NORMALS: patient oriented x3, moves all extremities and no focal motor deficits Psych: COMMON NORMALS: mental status grossly normal, Normal thought process present and cooperative THOUGHT PROCESS: Normal thought process present Skin: COMMON NORMALS: no rashes or lesions noted and no wounds GENERAL SKIN EXAM: no rashes or lesions noted Course Vital Signs: Vital signs: Vital Signs Temperature 98.1 F 06/29/22 16:18 Pulse Rate 86 06/29/22 21:49 Respiratory Rate 17 06/29/22 21:49 Blood Pressure 152/65 06/29/22 21:49 Pulse Oximetry 94 06/29/22 21:49 Oxygen Delivery Me thod 06/29/22 16:18 MDM - Abdominal Pain Medical Decision Making Patient presents here with abdominal pain along with vomiting he feels much improved after IV fluids he has some mild hyponatremia likely from some dehydration CT scan shows no acute abnormalities he is stable for discharge he is to follow-up with PCP and return if worsening he understands agrees to plan. Lab Data 06/29/22 19:05 06/29/22 19:05 Labs/Radiology: Radiology Impressions Abdomen/Pelvis CT 06/29/22 19:53 IMPRESSION: 1. No acute findings in the abdomen or pelvis. 2. 4 mm left pulmonary nodule. For patients at low risk (minimal or absent history of smoking and of other known risk factors), no routine follow-up is indicated. For patients at high risk (history of smoking or of other known risk factors), consider optional CT Chest at 12 months. (Reference: Juliana) References: Juliana Chaidez et al. Guidelines for Management of Incidental Pulmonary Nodules Detected on CT Images: From the Fleischner Society 2017. Radiology. 2017;284(1):228-243. COMMENTS: Consistent with the [place] [employer]'s Incidental Findings Committee white paper (J Am Diane Radiol 2018): Any incidental renal lesion less than 1 cm or classified as too small to characterize, or any incidental cystic renal lesion characterized as simple-appearing, is likely benign. No follow-up imaging is recommended for these lesions per consensus recommendations based on imaging criteria. Chest X-Ray 06/29/22 19:53 IMPRESSION: No acute findings. Laboratory Results WBC 15.6 10^3/uL (4.0-10.0) H 06/29/22 19:05 RBC 5.03 10^6/uL (4.1-5.3) 06/29/22 19:05 Hgb 16.5 g/dL (11.7-16.6) 06/29/22 19:05 Hct 46.0 % (42.0-52.0) 06/29/22 19:05 MCV 91.5 fl (80-94) 06/29/22 19:05 MCH 32.8 pg (28.0-34.0) 06/29/22 19:05 MCHC 35.9 g/dL (30.0-36.0) 06/29/22 19:05 RDW 11.8 % (12.1-15.1) L 06/29/22 19:05 Plt Count 326 10^3/cmm (130-400) 06/29/22 19:05 MPV 9.4 fL (7.4-10.4) 06/29/22 19:05 Neut % (Auto) 63.4 % 06/29/22 19:05 Lymph % (Auto) 26.7 % 06/29/22 19:05 [place] % (Auto) 8.5 % 06/29/22 19:05 Eos % (Auto) 0.5 % 06/29/22 19:05 Baso % (Auto) 0.3 % 06/29/22 19:05 Neut # (Auto) 9.88 10^3/uL (1.8-7.7) H 06/29/22 19:05 Lymph # (Auto) 4.2 10^3/uL (0.8-4.8) 06/29/22 19:05 [place] # (Auto) 1.3 10^3/uL (0.2-0.9) H 06/29/22 19:05 Eos # (Auto) 0.1 10^3/uL (0.0-0.8) 06/29/22 19:05 Baso # (Auto) 0.1 10^3/uL (0.0-0.1) 06/29/22 19:05 Nucleated RBC % (auto) 0 % 06/29/22 19:05 Nucleated RBCs # 0.0 /100WBC 06/29/22 19:05 Sodium 128 mmol/L (136-145) L 06/29/22 19:05 Potassium 3.2 mmol/L (3.5-5.1) L 06/29/22 19:05 Chloride 93 mmol/L (98-107) L 06/29/22 19:05 Carbon Dioxide 19 mmol/L (22-29) L 06/29/22 19:05 Anion Gap 19.2 (5-19) H 06/29/22 19:05 BUN 39 mg/dL (6-20) H 06/29/22 19:05 Creatinine 1.3 mg/dL (0.7-1.2) H 06/29/22 19:05 GFR Calculation 58.4 mL/min (90-130) L 06/29/22 19:05 Glucose 115 mg/dL (65-115) 06/29/22 19:05 Calculated Osmolality 276 mOsm/kg (285-295) L 06/29/22 19:05 Calcium 10.0 mg/dL (8.5-10.5) 06/29/22 19:05 Total Bilirubin 1.6 mg/dL (0.15-1.2) H 06/29/22 19:05 AST 20 U/L (0-40) 06/29/22 19:05 ALT 10 U/L (0-41) 06/29/22 19:05 Alkaline Phosphatase 127 U/L (40-130) 06/29/22 19:05 Total Protein 8.7 g/dL (6.6-8.7) 06/29/22 19:05 Albumin 4.7 g/dL (3.5-5.2) 06/29/22 19:05 Globulin 4.0 g/dL (1.3-4.6) 06/29/22 19:05 Lipase 28 U/L (13-60) 06/29/22 19:05 Discharge Plan Discharge Patient Disposition: Home Clinical Impression: Vomiting, Abdominal pain Condition: Stable Prescriptions: New ondansetron 4 mg tablet,disintegrating 4 mg PO Q6H PRN (Reason: nausea and vomiting) Qty: 14 0RF No Action zonisamide 100 mg capsule 200 mg PO BID tamsulosin 0.4 mg capsule 0.4 mg PO QAM albuterol sulfate [ProAir HFA] 90 mcg/actuation HFA aerosol inhaler 2 puff INHALATION Q4H PRN (Reason: Shortness Of Breath) buspirone 30 mg tablet 30 mg PO QAM pantoprazole 40 mg tablet,delayed release (DR/EC) 40 mg PO BIDWM Qty: 60 0RF quetiapine 50 mg tablet 50 mg PO BEDTIME potassium chloride 20 mEq tablet,ER particles/crystals 20 meq PO BID PRN (Reason: unknown) ondansetron HCl 4 mg tablet 4 mg PO Q6H PRN (Reason: Nausea And Vomiting) clonazepam 2 mg tablet 2 mg PO BID PRN (Reason: Anxiety) nicotine 21 mg/24 hr patch 24 hour 1 patch transdermal DAILY Nitrostat 0.4 mg Tablet, Sublingual 0.4 mg SUBLINGUAL Q5M PRN (Reason: Chest Pain) Rx Instructions: do not exceed 3 doses per episode lactulose 10 gram/15 mL solution 30 ml PO DAILY PRN (Reason: Constipation) atorvastatin 80 mg tablet 80 mg PO QAM isosorbide mononitrate 30 mg tablet extended release 24 hr 30 mg PO QAM clopidogrel 75 mg tablet 75 mg PO QAM Adult Aspirin Regimen 81 mg tablet,delayed release (DR/EC) 81 mg PO QAM amoxicillin-pot clavulanate 875-125 mg tablet 1 tab PO BID Qty: 20 0RF Discharge Orders: Discharge ED (Routine); Ordered 06/29/22 Ordered By: Mercedes Gaines Referrals: Amanda Simon FNP [Primary Care Provider] - 1-3 days Discharge Diet: Advance as tolerated Discharge Activity: Resume usual activity Patient Instructions: Abdominal Pain (ED) Coding Level of Care Code ED 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
[2022-06-29 19:46] LABS: Basophils # 0.1 10^3/uL (0.0-0.1); Basophils % 0.3 %; Eosinophils # 0.1 10^3/uL (0.0-0.8); Eosinophils % 0.5 %; Hemoglobin 16.5 g/dL (11.7-16.6); Lymphocytes # 4.2 10^3/uL (0.8-4.8); Lymphocytes % 26.7 %; Mean Corpuscular HGB Conc 35.9 g/dL (30.0-36.0); Mean Corpuscular Hemoglobin 32.8 pg (28.0-34.0); Mean Corpuscular Volume 91.5 fl (80-94); Mean Platelet Volume 9.4 fL (7.4-10.4); Monocytes # 1.3 10^3/uL (0.2-0.9); Monocytes % 8.5 %; Neutrophils # 9.88 10^3/uL (1.8-7.7); Neutrophils % 63.4 %; Nucleated Red Blood Cells % 0 %; Platelet Count 326 10^3/cmm (130-400); Red Blood Count 5.03 10^6/uL (4.1-5.3); Red Cell Distribution Width 11.8 % (12.1-15.1); White Blood Count 15.6 10^3/uL (4.0-10.0)
--- NOTE | 2022-06-29 19:53 | CTR_ITS ---
PROCEDURE INFORMATION: Exam: CT Abdomen And Pelvis With Contrast Exam date and time: 06/29/2022 8:41 PM Age: 51 years old Clinical indication: Pain and abnormal findings; Abnormal lab test; Elevated wbc; Nausea and vomiting; Abdominal pain; Localized; Prior surgery; Surgery type: Coronary stent. Gb. Orchiectomy; Patient HX: C/O lower abd pain with n/v. Wbc of 13k TECHNIQUE: Imaging protocol: Computed tomography of the abdomen and pelvis with contrast. Radiation optimization: All CT scans at this facility use at least one of these dose optimization techniques: automated exposure control; mA and/or kV adjustment per patient size (includes targeted exams where dose is matched to clinical indication); or iterative reconstruction. Contrast material: OMNI 350; Contrast volume: 80 ml; Contrast route: INTRAVENOUS (IV); COMPARISON: CT abdomen pelvis w con* [id number] 01/24/2022 1:59 PM RADIATION DOSE METRICS: Total DLP (mGy-cm): 473.63 FINDINGS: Lungs: Left lower lobe calcified granuloma. Stable 4 mm left lower lobe nodule. Liver: Normal. No mass. Gallbladder and bile ducts: Cholecystectomy. The bile ducts are normal. Pancreas: Normal. No ductal dilation. Spleen: Normal. No splenomegaly. Adrenal glands: Normal. No mass. Kidneys and ureters: Bilateral renal cysts, Hounsfield units less than 20. Additional round hypodensities in both kidneys are too small to characterize but are most likely cysts. No follow-up imaging is recommended. No renal calculus or hydronephrosis. Stomach and bowel: Mild diverticulosis of the colon. No diverticulitis. The stomach and small bowel are unremarkable. No wall thickening or obstruction. Appendix: The appendix is not visualized. No secondary signs of appendicitis. Intraperitoneal space: Unremarkable. No free air. No significant fluid collection. Vasculature: Mild arterial calcifications. No aneurysm. Lymph nodes: Unremarkable. No enlarged lymph nodes. Urinary bladder: Unremarkable as visualized. Reproductive: Coarse calcifications in the prostate, which is upper normal in size. Bones/joints: Unremarkable. No acute fracture. Soft tissues: Calcified injection granuloma in the right buttock. CT/CT abdomen pelvis w con* [id number] IMPRESSION: 1. No acute findings in the abdomen or pelvis. 2. 4 mm left pulmonary nodule. For patients at low risk (minimal or absent history of smoking and of other known risk factors), no routine follow-up is indicated. For patients at high risk (history of smoking or of other known risk factors), consider optional CT Chest at 12 months. (Reference: Juliana) References: Juliana Chaidez et al. Guidelines for Management of Incidental Pulmonary Nodules Detected on CT Images: From the Fleischner Society 2017. Radiology. 2017;284(1):228-243. COMMENTS: Consistent with the [place] [employer]'s Incidental Findings Committee white paper (J Am Diane Radiol 2018): Any incidental renal lesion less than 1 cm or classified as too small to characterize, or any incidental cystic renal lesion characterized as simple-appearing, is likely benign. No follow-up imaging is recommended for these lesions per consensus recommendations based on imaging criteria.
--- NOTE | 2022-06-29 19:53 | XRR_ITS ---
PROCEDURE INFORMATION: Exam: XR Chest Exam date and time: 06/29/2022 7:58 PM Age: 51 years old Clinical indication: Angina pectoris and chest pressure and chest wall pain; Additional info: Abd pain TECHNIQUE: Imaging protocol: Radiologic exam of the chest. Views: 1 view. COMPARISON: CR XR chest 1V portable [id number] 08/15/2021 3:35 AM FINDINGS: Lungs: Probable emphysema. The lungs are clear. No consolidation. Pleural spaces: Unremarkable. No pleural effusion. No pneumothorax. Heart/Mediastinum: Unremarkable. No cardiomegaly. Bones/joints: C-spine fusion hardware. Old distal left clavicle fracture with ossification of the coracoclavicular ligaments. XR/XR chest 1V portable [id number] IMPRESSION: No acute findings.
[2022-06-29 20:01] LABS: Alanine Aminotransferase 10 U/L (0-41); Albumin Level 4.7 g/dL (3.5-5.2); Alkaline Phosphatase 127 U/L (40-130); Anion Gap 19.2 (5-19); Aspartate Amino Transferase 20 U/L (0-40); Blood Urea Nitrogen 39 mg/dL (6-20); Carbon Dioxide 19 mmol/L (22-29); Chloride 93 mmol/L (98-107); Glomerular Filtration Rate 58.4 mL/min (90-130); Glucose 115 mg/dL (65-115); Lipase 28 U/L (13-60); Osmolality Calculated 276 mOsm/kg (285-295); Potassium 3.2 mmol/L (3.5-5.1); Sodium 128 mmol/L (136-145); Total Bilirubin 1.6 mg/dL (0.15-1.2); Total Protein 8.7 g/dL (6.6-8.7)
[2022-06-29] MEDS: ondansetron 2 mg/ML SDV 2 mL 4 MG IVP (20:14)
[2022-06-29] MEDS: sodium chloride 0.9% 1,000 ML 999 ML IV ×2 (20:14→20:18)
[2022-06-29] MEDS: iohexol 350 mg/mL 500 mL Btl (per mL) IV (20:45)
[2022-06-29] MEDS: metoclopramide 5 mg/mL SDV 2 mL IVP (21:01)
[2022-06-29] MEDS: diphenhydrAMINE 50 mg/mL SDV 1mL 25 MG IVP (21:02)
[2022-06-29 21:49] VITALS: BP 152/65; PULSE 86; RESP 17; O2SAT 94
[2022-06-29 22:15] LABS: SARS Covid-2 Antigen negative (Negative)
[2022-06-29 22:20] LABS: Influenza A by IFA negative (Negative); Influenza B by IFA negative (Negative)
[2022-06-29 22:29] LABS: Bilirubin Urine Neg (Negative); Blood Urine 2+ (Negative); Glucose Urine UA Norm (Normal); Ketones Urine Negative (Negative); Leukocyte Esterase Urine Negative (Negative); Nitrate Urine Negative (Negative); Protein Urine Neg (Negative); Specific Gravity, Urine 1.015 (1.005-1.030); Urine Appearance Clear (CLEAR); Urine Color Yellow (Yellow); Urobilinogen Urine Norm (Negative); pH Urine 5 (5-7)
[2022-06-29 22:30] LABS: Add Urine Culture? No; Add Urine Microscopic? YES; Amorphous Sediment Urine 1+ /hpf; Hyaline Casts Urine 0-4 /lpf; Squamous Epithelial Cell Urine 0-4 /hpf (0-5); WBC Urine 0-4 /hpf (0-5)
== END 2022-06-29 21:52 | disposition home or self-care (01) ==
PROVIDERS: Emergency Medicine; Emergency Provider Emergency Medicine; PCP Nurse Practitioner Family
DX: R10.9 Unspecified abdominal pain (principal); R11.11 Vomiting without nausea; Z79.02 Long term (current) use of antithrombotics/antiplatelets; Z79.82 Long term (current) use of aspirin; F17.210 Nicotine dependence, cigarettes, uncomplicated; I25.10 Atherosclerotic heart disease of native coronary artery without angina pectoris; J44.9 Chronic obstructive pulmonary disease, unspecified; I10 Essential (primary) hypertension; E78.2 Mixed hyperlipidemia; Z20.822 Contact with and (suspected) exposure to COVID-19
CPT/HCPCS: 71045; 74177; 80053; 81001; 83690; 85025; 87426; 87804; 96361; 96374; 96375; 99285; J1200; J2405; J2765; J7030; Q9967

== ENCOUNTER → 2022-07-13 15:03 | Outpatient (BNVA) | payer MEDICAID, SELFPAY | PROVIDERS: PCP Nurse Practitioner Family; Visit Provider Internal Medicine Cardiovascular Disease | DX: R06.02 Shortness of breath (principal); I25.10 Atherosclerotic heart disease of native coronary artery without angina pectoris; I10 Essential (primary) hypertension; E78.2 Mixed hyperlipidemia; Z79.82 Long term (current) use of aspirin; F41.8 Other specified anxiety disorders; M54.16 Radiculopathy, lumbar region; Z95.5 Presence of coronary angioplasty implant and graft; F17.210 Nicotine dependence, cigarettes, uncomplicated; I95.9 Hypotension, unspecified; R11.2 Nausea with vomiting, unspecified; J44.9 Chronic obstructive pulmonary disease, unspecified; I95.89 Other hypotension; E86.1 Hypovolemia | CPT/HCPCS: 36415; 80048; 83880; 99214 ==

== ENCOUNTER 2022-08-05 09:23 | Emergency (ER) | payer MEDICAID, SELFPAY ==
--- NOTE | 2022-08-05 09:29 | ECG_ITS ---
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 [id number]
[2022-08-05 09:30] VITALS: BP 97/71; PULSE 60; RESP 16; O2SAT 98
--- NOTE | 2022-08-05 09:42 | XRR_ITS ---
PROCEDURE INFORMATION: Exam: XR Chest Exam date and time: 08/05/2022 10:06 AM Age: 51 years old Clinical indication: Cough and dyspnea; Additional info: Dyspnea/cough TECHNIQUE: Imaging protocol: Radiologic exam of the chest. Views: 1 view. COMPARISON: CR (CHEST, ) 06/29/2022 7:58 PM FINDINGS: Lungs: The lung parenchyma is clear. Pleural spaces: No pneumothorax. No pleural effusion. Heart/Mediastinum: Coronary stents noted. Bones/joints: Anterior cervical spinal fixation hardware noted. Chronic deformity of the lateral left clavicle with extension to the coracoid similar to prior exam. XR/XR chest 1V portable [id number] IMPRESSION: No acute cardiopulmonary abnormality identified.
[2022-08-05 09:48] VITALS: BP 97/71; PULSE 79; RESP 16; O2SAT 100
--- NOTE | 2022-08-05 09:50 | W.ED.CHESTPA ---
HPI - Chest Pain General: Chief Complaint: Chest Pain Stated Complaint: chest pain Time Seen by Provider: 08/05/22 09:27 Source: patient Mode of arrival: ambulatory History of Present Illness: 51-year-old male presents emergency room with complaint of chest pain. He has point tenderness in the left lower rib began after he rolled over onto a screwdriver while he was working on a project at home is worse when he takes a deep breath. No nausea or vomiting associated with it no diaphoresis is not noticed any association with exertion. MD complaint: chest pain Pertinent past history: coronary artery disease Onset (ago): day(s) Timing of current episode: episodic Pain location: left chest (Lower ribs anteriorly) Pain radiation: none Severity: moderate Quality: sharp Exacerbating factors: inspiration, palpation and movement Associated symptoms: Deny abdominal pain, diaphoresis, dyspnea, fever(s), leg edema, nausea, palpitations, sense of impending doom, syncope or vomiting Treatment prior to arrival: none Review of Systems Const: Denies: fever(s), chills, fatigue, malaise or diaphoresis ENMT: Denies: throat pain, ear or mastoid pain, nasal discharge or nasal congestion Card: Reports: chest pain; Denies: palpitations, irregular heart rhythm, edema or syncope Resp: Denies: dyspnea GI: Denies: abdominal pain, nausea or vomiting : Denies: flank pain, dysuria, urinary frequency or urinary urgency Skin/Breast: Denies: rash or pruritus [facility] ED PFSH: Medical History 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 difficile colitis Cervical spondylosis Chronic migraine Chronic pancreatitis COPD (chronic obstructive pulmonary disease) Diverticulosis Essential (primary) hypertension GERD (gastroesophageal reflux disease) H. pylori infection Heart attack Hx of coronary angiogram Medical marijuana use Mixed hyperlipidemia Osteoarthritis Pharyngitis Radiculopathy, lumbar region Seizure disorder SOB (shortness of breath) Torsion of appendix testis Urethral stricture Surgical History H/O chest tube placement H/O left knee surgery H/O neck surgery H/O removal of testicle H/O right knee surgery History of appendectomy History of cholecystectomy Stented coronary artery Family History Brother Parkinson disease Cancer Diabetes Stroke Family/Other Cancer Chronic kidney disease (CKD) Suicide Grandmother CAD (coronary artery disease) Cancer Lung disease Grandfather Dementia Mother Lung disease Father Suicide Denies family history of Clotting disorder Anesthesia complication Bleeding disorder Social History Smoking and tobacco status: current every day smoker cigarettes [ Other cigarette details: Had quit but today picked up again] Quit status (tobacco): has tried quititng Smoking risk assessment/counseling performed?: Yes Alcohol intake: never Lives independently: Yes Household members: significant other Current occupational status: disabled History of recent travel: No Current gender identity: Male Physical Exam Const: GENERAL APPEARANCE: cooperative and comfortable ORIENTATION/CONSCIOUSNESS: Yes awake, Yes oriented to person, Yes oriented to place and Yes oriented to time HENMT: COMMON NORMALS: normocephalic, atraumatic and hearing grossly normal bilaterally HEAD & SCALP: normocephalic and atraumatic Chest: OTHER: Reproducible point tenderness in the lower left anterior ribs. Pain is similar to what patient is presenting with and is same as what he reproduces with deep inspiration Resp: COMMON NORMALS: normal respiratory effort, No retractions, No use of accessory muscles and clear to auscultation bilaterally AUSCULTATION: clear to auscultation bilaterally Cardio: COMMON NORMALS: regular rate, regular rhythm and No murmurs present (Cardio) RATE: regular rate RHYTHM: regular rhythm GI: COMMON NORMALS: Soft to palpation and No hepatosplenomegaly present AUSCULTATION: Yes normoactive bowel sounds PALPATION: Yes Soft to palpation, No Tenderness to palpation present (GI), No Guarding due to palpation present (GI) and Yes No hepatosplenomegaly present Extremity: COMMON NORMALS: normal to inspection, capillary refill normal, no clubbing, cyanosis or edema, no calf tenderness and no pedal edema Neuro: SENSORIUM/ORIENTATION: Yes oriented to person, Yes oriented to place and Yes oriented to time Skin: COMMON NORMALS: no rashes or lesions noted GENERAL SKIN EXAM: no rashes or lesions noted Course Vital Signs: Vital signs: Vital Signs Pulse Rate 79 08/05/22 10:45 Respiratory Rate 14 08/05/22 10:45 Blood Pressure 97/71 08/05/22 10:45 Pulse Oximetry 98 08/05/22 10:45 Oxygen Delivery Me thod 08/05/22 10:45 MDM - Chest Pain Medical Decision Making Pain reproducible point tenderness where he rolled over onto a scooter while he was lying on the ground working on a project at home. EKG and labs are unremarkable discharge patient home can use diclofenac as needed. Medical Records I reviewed the patient's medical records. Lab Data I reviewed the patient's lab results. 08/05/22 09:59 08/05/22 09:59 Radiology Impressions Chest X-Ray 08/05/22 09:42 IMPRESSION: No acute cardiopulmonary abnormality identified. Laboratory Results WBC 7.0 10^3/uL (4.0-10.0) 08/05/22 09:59 RBC 4.56 10^6/uL (4.1-5.3) 08/05/22 09:59 Hgb 14.9 g/dL (11.7-16.6) 08/05/22 09:59 Hct 45.5 % (42.0-52.0) 08/05/22 09:59 MCV 99.8 fl (80-94) H 08/05/22 09:59 MCH 32.7 pg (28.0-34.0) 08/05/22 09:59 MCHC 32.7 g/dL (30.0-36.0) 08/05/22 09:59 RDW 11.9 % (12.1-15.1) L 08/05/22 09:59 Plt Count 190 10^3/cmm (130-400) 08/05/22 09:59 MPV 9.0 fL (7.4-10.4) 08/05/22 09:59 Neut % (Auto) 57.2 % 08/05/22 09:59 Lymph % (Auto) 33.2 % 08/05/22 09:59 [place] % (Auto) 6.3 % 08/05/22 09:59 Eos % (Auto) 2.3 % 08/05/22 09:59 Baso % (Auto) 0.9 % 08/05/22 09:59 Neut # (Auto) 3.98 10^3/uL (1.8-7.7) 08/05/22 09:59 Lymph # (Auto) 2.3 10^3/uL (0.8-4.8) 08/05/22 09:59 [place] # (Auto) 0.4 10^3/uL (0.2-0.9) 08/05/22 09:59 Eos # (Auto) 0.2 10^3/uL (0.0-0.8) 08/05/22 09:59 Baso # (Auto) 0.1 10^3/uL (0.0-0.1) 08/05/22 09:59 Nucleated RBC % (auto) 0 % 08/05/22 09:59 Nucleated RBCs # 0.0 /100WBC 08/05/22 09:59 Sodium 136 mmol/L (136-145) 08/05/22 09:59 Potassium 4.1 mmol/L (3.5-5.1) 08/05/22 09:59 Chloride 103 mmol/L (98-107) 08/05/22 09:59 Carbon Dioxide 22 mmol/L (22-29) 08/05/22 09:59 Anion Gap 15.1 (5-19) 08/05/22 09:59 BUN 15 mg/dL (6-20) 08/05/22 09:59 Creatinine 0.8 mg/dL (0.7-1.2) 08/05/22 09:59 GFR Calculation 102.3 mL/min (90-130) 08/05/22 09:59 Glucose 77 mg/dL (65-115) 08/05/22 09:59 Calculated Osmolality 282 mOsm/kg (285-295) L 08/05/22 09:59 Calcium 9.2 mg/dL (8.5-10.5) 08/05/22 09:59 Total Bilirubin 0.5 mg/dL (0.15-1.2) 08/05/22 09:59 AST 12 U/L (0-40) 08/05/22 09:59 ALT 7 U/L (0-41) 08/05/22 09:59 Alkaline Phosphatase 87 U/L (40-130) 08/05/22 09:59 Troponin T Baseline 8 ng/L (0-15) 08/05/22 09:59 Total Protein 7.3 g/dL (6.6-8.7) 08/05/22 09:59 Albumin 4.5 g/dL (3.5-5.2) 08/05/22 09:59 Globulin 2.8 g/dL (1.3-4.6) 08/05/22 09:59 Discharge Plan Discharge Patient Disposition: Home Clinical Impression: Acute chest wall pain Condition: Stable Prescriptions: New diclofenac sodium 75 mg tablet,delayed release (DR/EC) 75 mg PO Q12H PRN (Reason: pain) Qty: 20 0RF No Action zonisamide 100 mg capsule 200 mg PO BID tamsulosin 0.4 mg capsule 0.4 mg PO QAM albuterol sulfate [ProAir HFA] 90 mcg/actuation HFA aerosol inhaler 2 puff INHALATION Q4H PRN (Reason: Shortness Of Breath) buspirone 30 mg tablet 30 mg PO QAM clopidogrel 75 mg tablet See Rx Instructions .ROUTE .COMPLEX Qty: 90 0RF Dose Instruction: TAKE 1 TABLET BY MOUTH EVERY DAY AT 9AM Rx Instructions: TAKE 1 TABLET BY MOUTH EVERY DAY AT 9AM pantoprazole 40 mg tablet,delayed release (DR/EC) 40 mg PO BIDWM Qty: 60 0RF quetiapine 50 mg tablet 50 mg PO BEDTIME potassium chloride 20 mEq tablet,ER particles/crystals 20 meq PO BID PRN (Reason: unknown) clonazepam 2 mg tablet 2 mg PO BID PRN (Reason: Anxiety) nicotine 21 mg/24 hr patch 24 hour 1 patch transdermal DAILY Nitrostat 0.4 mg Tablet, Sublingual 0.4 mg SUBLINGUAL Q5M PRN (Reason: Chest Pain) Rx Instructions: do not exceed 3 doses per episode atorvastatin 80 mg tablet 80 mg PO QAM Adult Aspirin Regimen 81 mg tablet,delayed release (DR/EC) 81 mg PO QAM Discharge Orders: Discharge ED (Routine); Ordered 08/05/22 Ordered By: Torito Mendosa Referrals: Amanda Simon FNP [Primary Care Provider] - Discharge Diet: Usual diet Discharge Activity: Increase activity as tolerated Patient Instructions: Opioid Safety, Pain Management Activity Restrictions/Additional Instructions: You were seen in the ER today for musculoskeletal chest wall pain. Labs and imaging were unremarkable. Your symptoms are consistent with bruising of the anterior chest wall from where you described rolling over onto the tool at home. You can use ice or heat as needed for discomfort medications prescribed above follow-up as needed. Coding Level of Care Code ED Electronic Video Games Servicer for 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
[2022-08-05] MEDS: aspirin 81 mg Chew Tablet 324 MG PO (09:58)
[2022-08-05 10:09] LABS: Basophils # 0.1 10^3/uL (0.0-0.1); Basophils % 0.9 %; Eosinophils # 0.2 10^3/uL (0.0-0.8); Eosinophils % 2.3 %; Hematocrit 45.5 % (42.0-52.0); Hemoglobin 14.9 g/dL (11.7-16.6); Lymphocytes # 2.3 10^3/uL (0.8-4.8); Lymphocytes % 33.2 %; Mean Corpuscular HGB Conc 32.7 g/dL (30.0-36.0); Mean Corpuscular Hemoglobin 32.7 pg (28.0-34.0); Mean Corpuscular Volume 99.8 fl (80-94); Monocytes # 0.4 10^3/uL (0.2-0.9); Monocytes % 6.3 %; Neutrophils # 3.98 10^3/uL (1.8-7.7); Neutrophils % 57.2 %; Nucleated Red Blood Cells % 0 %; Platelet Count 190 10^3/cmm (130-400); Red Blood Count 4.56 10^6/uL (4.1-5.3); Red Cell Distribution Width 11.9 % (12.1-15.1)
[2022-08-05 10:32] LABS: Alanine Aminotransferase 7 U/L (0-41); Albumin Level 4.5 g/dL (3.5-5.2); Alkaline Phosphatase 87 U/L (40-130); Blood Urea Nitrogen 15 mg/dL (6-20); Calcium 9.2 mg/dL (8.5-10.5); Carbon Dioxide 22 mmol/L (22-29); Chloride 103 mmol/L (98-107); Globulin 2.8 g/dL (1.3-4.6); Glomerular Filtration Rate 102.3 mL/min (90-130); Glucose 77 mg/dL (65-115); Osmolality Calculated 282 mOsm/kg (285-295); Sodium 136 mmol/L (136-145); Total Bilirubin 0.5 mg/dL (0.15-1.2); Total Protein 7.3 g/dL (6.6-8.7)
[2022-08-05 10:34] LABS: Troponin(5th) Baseline 8 ng/L (0-15)
[2022-08-05 10:41] LABS: Anion Gap 15.1 (5-19); Aspartate Amino Transferase 12 U/L (0-40); Potassium 4.1 mmol/L (3.5-5.1)
[2022-08-05 10:45] VITALS: BP 97/71; PULSE 79; RESP 14; O2SAT 98
== END 2022-08-05 11:06 | disposition home or self-care (01) ==
PROVIDERS: Emergency Provider Family Medicine; PCP Nurse Practitioner Family
DX: R07.89 Other chest pain (principal); Z79.82 Long term (current) use of aspirin; Z79.02 Long term (current) use of antithrombotics/antiplatelets; F17.210 Nicotine dependence, cigarettes, uncomplicated; I25.10 Atherosclerotic heart disease of native coronary artery without angina pectoris; J44.9 Chronic obstructive pulmonary disease, unspecified; I10 Essential (primary) hypertension; E78.2 Mixed hyperlipidemia
CPT/HCPCS: 71045; 80053; 84484; 85025; 93005; 99285

== ENCOUNTER 2022-08-07 13:37 | Outpatient (CLI) | payer MEDICAID, SELFPAY ==
--- NOTE | 2022-08-07 14:15 | USCV_ITS ---
Josue Cheng Age: 51 Gender: M : 1970 Exam Date: 08/07/2022 14:11 Ordering Phys: Placido Garza MD ([email or web address]) Technologist: Exam Location: [facility] [place] Indication: lv for ef BP: 110 / 60 HR: 57 Rhythm: Sinus Technical Quality: Adequate MEASUREMENTS (Male / Female) Normal Values 2D ECHO LV Diastolic Diameter PLAX 3.9 cm 4.2 - 5.9 / 3.9 - 5.3 cm LV Systolic Diameter PLAX 2.9 cm IVS Diastolic Thickness 1.4 cm 0.6 - 1.0 / 0.6 - 0.9 cm IVS Systolic Thickness 1.6 cm LVPW Diastolic Thickness 1.2 cm 0.6 - 1.0 / 0.6 - 0.9 cm LVPW Systolic Thickness 1.3 cm LVOT Diameter 2.2 cm LV Ejection Fraction 2D Teich 43.3 % LV Ejection Fraction MOD 2C 65.1 % LV Ejection Fraction 2C AL 64.6 % LA Diameter 3.4 cm M-MODE Aortic Annulus Diameter 3.3 cm LA Ao Ratio MM 1.2 MV E Point Septal Separation 1.4 cm FINDINGS Left Ventricle Mild diffuse hypokinesia left ventricle. LV ejection fraction around 45-50%(visual). Right Ventricle The right ventricle is normal in size and function. Right Atrium The right atrium is normal in size. Left Atrium The left atrium is normal in size. Mitral Valve Thickened mitral valve. Aortic Valve Thickened aortic valve. Tricuspid Valve Gross abnormalities noted Pulmonic Valve No gross abnormalities noted Pericardium Normal pericardium without effusion. Aorta Normal aortic annulus size. IVC The inferior vena cava appears normal. CONCLUSIONS Mild diffuse hypokinesia left ventricle. LV ejection fraction around 45-50%. LV size, upper limit of normal Thickened aortic and mitral valves. No pericardial effusion Compared to the study from 08/15/2021, there may not be a significant change Dr Placido Garza MD FAC (Electronically Signed) Final Date: 08 August 2022 22:14 S
== END 2022-08-07 13:38 | disposition home or self-care (01) ==
LOC: RAD 13:39
PROVIDERS: PCP Nurse Practitioner Family; Visit Provider Internal Medicine Cardiovascular Disease
DX: R06.02 Shortness of breath (principal); I95.9 Hypotension, unspecified; I08.0 Rheumatic disorders of both mitral and aortic valves
CPT/HCPCS: 93308

== ENCOUNTER 2022-09-30 11:44 | Emergency (ER) | payer MEDICAID, SELFPAY ==
[2022-09-30 11:46] VITALS: BP 92/61; PULSE 72; RESP 16; TEMP 36.7; O2SAT 97
--- NOTE | 2022-09-30 12:18 | ED_ITS ---
HPI - Extremity Problem General: Chief complaint: Extremity Problem,Nontraumatic Stated complaint: says entire body hurts Time Seen by Provider: 09/30/22 12:05 History of Present Illness: Patient is a 51-year-old male comes to the ED with pain all over. Patient is complaining of having pain all throughout his legs bilaterally, arms bilaterally, neck and back. He is currently in the process of getting set up with pain management and states he got his approval letter from Medicare couple days ago. Denies any injury or trauma to cause pain. Denies any cauda equina symptoms. Associated symptoms: Deny chest pain, fever(s) or rash Review of Systems Const: Denies: fever(s), chills or fatigue Eyes: Denies: change in vision or eye discomfort ENMT: Denies: throat pain, odynophagia, nasal discharge or nasal congestion Card: Denies: chest pain, palpitations, edema, swelling of feet/ankles, dyspnea on exertion or orthopnea Resp: Denies: dyspnea, productive cough or non-productive cough GI: Denies: abdominal pain, nausea, vomiting, diarrhea, constipation or hematochezia : Denies: flank pain, difficulty urinating, dysuria or hematuria Musc: Denies: neck pain, back pain or extremity swelling Skin/Breast: Denies: rash or new lesions Neuro: Denies: headache(s), numbness in extremities or weakness in extremities PFSH ED PFSH: Medical History 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 difficile colitis Cervical spondylosis Chronic migraine Chronic pancreatitis COPD (chronic obstructive pulmonary disease) Diverticulosis Essential (primary) hypertension GERD (gastroesophageal reflux disease) H. pylori infection Heart attack Hx of coronary angiogram Medical marijuana use Mixed hyperlipidemia Osteoarthritis Pharyngitis Radiculopathy, lumbar region Seizure disorder SOB (shortness of breath) Torsion of appendix testis Urethral stricture Surgical History H/O chest tube placement H/O left knee surgery H/O neck surgery H/O removal of testicle H/O right knee surgery History of appendectomy History of cholecystectomy Stented coronary artery Family History Brother Parkinson disease Cancer Diabetes Stroke Family/Other Cancer Chronic kidney disease (CKD) Suicide Grandmother CAD (coronary artery disease) Cancer Lung disease Grandfather Dementia Mother Lung disease Father Suicide Denies family history of Clotting disorder Anesthesia complication Bleeding disorder Social History Smoking and tobacco status: current every day smoker cigarettes [ Other cigarette details: Had quit but today picked up again] Quit status (tobacco): has tried quititng Smoking risk assessment/counseling performed?: Yes Alcohol intake: never Lives independently: Yes Household members: significant other Current occupational status: disabled Current gender identity: Male Physical Exam Narrative: EXAM NARRATIVE: Patient is able to ambulate without any difficulties. Const: COMMON NORMALS: no acute distress, patient oriented x3, healthy appearing and alert GENERAL APPEARANCE: cooperative and comfortable HENMT: COMMON NORMALS: normocephalic HEAD & SCALP: normocephalic MOUTH: Normal oral and palatal mucosa present THROAT: posterior oropharynx normal and uvula midline Neck/C-Spine: COMMON NORMALS: supple GENERAL: Yes normal visual inspection Resp: COMMON NORMALS: normal respiratory effort, No retractions, No use of accessory muscles and clear to auscultation bilaterally AUSCULTATION: clear to auscultation bilaterally Cardio: COMMON NORMALS: regular rate, regular rhythm, S1 normal heart sound present, S2 normal heart sound present, No gallops present (Cardio), No clicks present (Cardio), No murmurs present (Cardio) and Peripheral pulses 2+ throughout RATE: regular rate RHYTHM: regular rhythm HEART SOUNDS: S1 normal heart sound present and S2 normal heart sound present PERIPHERAL PULSES: Peripheral pulses 2+ throughout GI: COMMON NORMALS: Normal to inspection, nondistended, normoactive bowel sounds present, Soft to palpation, non-tender and no masses PALPATION: Yes Soft to palpation : COMMON NORMALS: Yes no CVA tenderness BLADDER/KIDNEY EXAM: Yes no CVA tenderness Back/Pelvis: COMMON NORMALS: no CVA tenderness Extremity: COMMON NORMALS: normal to inspection Neuro: COMMON NORMALS: patient oriented x3 SENSORIUM/ORIENTATION: Yes alert GAIT: Yes Normal gait present Skin: GENERAL SKIN EXAM: dry skin Course Vital Signs: Vital signs: Vital Signs Temperature 98.1 F 09/30/22 11:46 Pulse Rate 72 09/30/22 11:46 Respiratory Rate 16 09/30/22 11:46 Blood Pressure 92/61 09/30/22 11:46 Pulse Oximetry 97 09/30/22 11:46 Oxygen Delivery Me thod 09/30/22 11:46 MDM - Extremity (Nontraumatic) Medical Decision Making jimena is a 51-year-old male comes to the ED with pain all over. Patient is complaining of having pain all throughout his legs bilaterally, arms bilaterally, neck and back. He is currently in the process of getting set up with pain management and states he got his approval letter from Medicare couple days ago. Denies any injury or trauma to cause pain. Vitals are stable. Exam of patient is benign and he appears nontoxic in no acute distress or pain. He is able to ambulate without any difficulty or limping. Patient was given a dose of hydrocodone here in the ED, Decadron and Norflex. He was told to follow-up with pain management at his scheduled appointment. Patient diagnosed with chronic pain and was stable for discharge home. Discharge Plan Discharge Patient Disposition: Home Clinical Impression: Chronic pain Qualifiers: Chronic pain type: other chronic pain Qualified Code(s): G89.29 - Other chronic pain Condition: Stable Prescriptions: New cyclobenzaprine 10 mg tablet 10 mg PO BID PRN (Reason: muscle spasm) Qty: 20 0RF No Action zonisamide 100 mg capsule 200 mg PO BID tamsulosin 0.4 mg capsule 0.4 mg PO QAM albuterol sulfate [ProAir HFA] 90 mcg/actuation HFA aerosol inhaler 2 puff INHALATION Q4H PRN (Reason: Shortness Of Breath) buspirone 30 mg tablet 30 mg PO QAM clopidogrel 75 mg tablet See Rx Instructions .ROUTE .COMPLEX Qty: 90 0RF Dose Instruction: TAKE 1 TABLET BY MOUTH EVERY DAY AT 9AM Rx Instructions: TAKE 1 TABLET BY MOUTH EVERY DAY AT 9AM atorvastatin 80 mg tablet See Rx Instructions .ROUTE .COMPLEX Qty: 90 3RF Dose Instruction: TAKE 1 TABLET BY MOUTH EVERY DAY Rx Instructions: TAKE 1 TABLET BY MOUTH EVERY DAY pantoprazole 40 mg tablet,delayed release (DR/EC) 40 mg PO BIDWM Qty: 60 0RF quetiapine 50 mg tablet 50 mg PO BEDTIME potassium chloride 20 mEq tablet,ER particles/crystals 20 meq PO BID PRN (Reason: unknown) clonazepam 2 mg tablet 2 mg PO BID PRN (Reason: Anxiety) nicotine 21 mg/24 hr patch 24 hour 1 patch transdermal DAILY Nitrostat 0.4 mg Tablet, Sublingual 0.4 mg SUBLINGUAL Q5M PRN (Reason: Chest Pain) Rx Instructions: do not exceed 3 doses per episode Adult Aspirin Regimen 81 mg tablet,delayed release (DR/EC) 81 mg PO QAM diclofenac sodium 75 mg tablet,delayed release (DR/EC) 75 mg PO Q12H PRN (Reason: pain) Qty: 20 0RF Discharge Orders: Discharge ED (Routine); Ordered 09/30/22 Ordered By: Jacob Bloom Referrals: Amanda Simon FNP [Primary Care Provider] - Discharge Diet: Regular Discharge Activity: Increase activity as tolerated Patient Instructions: Pain Management Activity Restrictions/Additional Instructions: Follow-up with pain management clinic at your first scheduled appointment. Take medications as prescribed. Return to the ER or your medical provider if condition worsens. Please read and understand discharge instructions. Thank you for choosing [facility] for your healthcare needs today. Please realize this is an emergency room and that we are providing you with a medical screening exam and this may not be complete and all inclusive of all the testing and or work up that you may need to determine your ailment or severity of your illness. It is very important that you follow up as instructed or that you return to the Emergency Department should you have concerns or if your condition changes or worsens in any way. Coding Level of Care Code ED [employer] for [employer]
[2022-09-30] MEDS: dexamethasone 10 mg/mL INJ IM (12:35)
[2022-09-30] MEDS: orphenadrine 30 mg/mL Inj 2 mL 60 MG IM (12:35)
[2022-09-30] MEDS: HYDROcodone-acetaminophen 7.5-325 mg Tablet 1 TAB PO (12:35)
== END 2022-09-30 12:41 | disposition home or self-care (01) ==
PROVIDERS: Emergency Provider Physician Assistant; PCP Nurse Practitioner Family
DX: G89.29 Other chronic pain (principal)
CPT/HCPCS: 96372; 99284; J1100; J2360

== ENCOUNTER 2022-10-14 08:05 | Emergency (ER) | payer MEDICAID, SELFPAY ==
--- NOTE | 2022-10-14 08:13 | XRR_ITS ---
PROCEDURE INFORMATION: Exam: XR Abdomen Exam date and time: 10/14/2022 8:28 AM Age: 51 years old Clinical indication: Abdominal pain; Prior surgery; Surgery date: 6+ months; Surgery type: Appy, lanette, testicle; Additional info: Constipation TECHNIQUE: Imaging protocol: Radiologic exam of the abdomen. Views: Frontal supine view of the abdomen. 1 View. COMPARISON: CR XR abdomen min 2V [id number] 07/14/2022 2:47 PM FINDINGS: Gastrointestinal tract: There is gas and stool distention of colon. No visibly dilated small bowel. No gross free air Intraperitoneal space: No gross free air. Bones/joints: Bones are unremarkable. XR/XR KUB [id number] IMPRESSION: 1. No sign of small bowel obstruction. 2. Gas and stool distention of colon.
[2022-10-14 08:15] VITALS: BP 109/77; PULSE 95; O2SAT 98; BMI 27.2
--- NOTE | 2022-10-14 08:16 | ED_ITS ---
HPI - Abdominal Pain General: Chief Complaint: Abdominal Pain Stated Complaint: constipation Time Seen by Provider: 10/14/22 08:12 Source: patient Mode of arrival: ambulatory Limitations: no limitations History of Present Illness: 51-year-old male states he has a history of chronic pain he states he had constipation the past as well he was seen at [facility] last week had x-ray showed constipation he is scheduled to see a GI for colonoscopy in the future he states that he did start some new meds he has not had a bowel movement 3 days he states he has had some cramping in his abdomen denies any vomiting denies any fever denies any severe pain currently. 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 difficile colitis Cervical spondylosis Chronic migraine Chronic pancreatitis COPD (chronic obstructive pulmonary disease) Diverticulosis Essential (primary) hypertension GERD (gastroesophageal reflux disease) H. pylori infection Heart attack Hx of coronary angiogram Medical marijuana use Mixed hyperlipidemia Osteoarthritis Pharyngitis Radiculopathy, lumbar region Seizure disorder SOB (shortness of breath) Torsion of appendix testis Urethral stricture Surgical History H/O chest tube placement H/O left knee surgery H/O neck surgery H/O removal of testicle H/O right knee surgery History of appendectomy History of cholecystectomy Stented coronary artery Family History Brother Parkinson disease Cancer Diabetes Stroke Family/Other Cancer Chronic kidney disease (CKD) Suicide Grandmother CAD (coronary artery disease) Cancer Lung disease Grandfather Dementia Mother Lung disease Father Suicide Denies family history of Clotting disorder Anesthesia complication Bleeding disorder Social History Smoking and tobacco status: current every day smoker cigarettes [ Other cigarette details: Had quit but today picked up again] Quit status (tobacco): has tried quititng Smoking risk assessment/counseling performed?: Yes Alcohol intake: never Lives independently: Yes Household members: significant other Current occupational status: disabled Current gender identity: Male Physical Exam Const: COMMON NORMALS: no acute distress, patient oriented x3 and healthy appearing HENMT: COMMON NORMALS: normocephalic and atraumatic HEAD & SCALP: normocephalic and atraumatic Eye: COMMON NORMALS: Equal, round and reactive pupils present and EOMs intact bilaterally PUPIL: Yes Equal, round and reactive pupils present Neck/C-Spine: COMMON NORMALS: full ROM and supple Chest: COMMONS NORMALS: normal inspection of the chest and normal palpation of entire chest wall Resp: COMMON NORMALS: normal respiratory effort, No retractions, No use of accessory muscles and clear to auscultation bilaterally AUSCULTATION: clear to auscultation bilaterally Cardio: COMMON NORMALS: regular rate, regular rhythm and No murmurs present (Cardio) RATE: regular rate RHYTHM: regular rhythm GI: COMMON NORMALS: Normal to inspection, nondistended, normoactive bowel sounds present, Soft to palpation, non-tender and no masses PALPATION: Yes Soft to palpation Extremity: COMMON NORMALS: normal to inspection and full ROM Neuro: COMMON NORMALS: patient oriented x3, moves all extremities and no focal motor deficits Psych: COMMON NORMALS: mental status grossly normal, Normal thought process present and cooperative THOUGHT PROCESS: Normal thought process present Skin: COMMON NORMALS: no rashes or lesions noted and no wounds GENERAL SKIN EXAM: no rashes or lesions noted Course Vital Signs: Vital signs: Vital Signs Pulse Rate 95 10/14/22 08:15 Blood Pressure 109/77 10/14/22 08:29 Pulse Oximetry 99 10/14/22 08:29 Oxygen Delivery Me thod 10/14/22 08:29 MDM - Abdominal Pain Medical Decision Making Patient presents here with constipation x-ray does show constipation his abdominal exam here is benign he has had no signs of no signs of surgical abdomen did give him lactulose here he refuses to take a laxative at home sharri mcmillan put him Colace he is to follow-up with his GI in [place] as scheduled return if worsening. Discharge Plan Discharge Patient Disposition: Home Clinical Impression: Constipation Condition: Stable Prescriptions: New Colace 100 mg capsule 100 mg PO BID Qty: 60 0RF ondansetron 4 mg tablet,disintegrating 4 mg PO Q6H PRN (Reason: nausea and vomiting) Qty: 14 0RF No Action zonisamide 100 mg capsule 200 mg PO BID tamsulosin 0.4 mg capsule 0.4 mg PO QAM albuterol sulfate [ProAir HFA] 90 mcg/actuation HFA aerosol inhaler 2 puff INHALATION Q4H PRN (Reason: Shortness Of Breath) buspirone 30 mg tablet 30 mg PO QAM clopidogrel 75 mg tablet See Rx Instructions .ROUTE .COMPLEX Qty: 90 0RF Dose Instruction: TAKE 1 TABLET BY MOUTH EVERY DAY AT 9AM Rx Instructions: TAKE 1 TABLET BY MOUTH EVERY DAY AT 9AM atorvastatin 80 mg tablet See Rx Instructions .ROUTE .COMPLEX Qty: 90 3RF Dose Instruction: TAKE 1 TABLET BY MOUTH EVERY DAY Rx Instructions: TAKE 1 TABLET BY MOUTH EVERY DAY pantoprazole 40 mg tablet,delayed release (DR/EC) 40 mg PO BIDWM Qty: 60 0RF quetiapine 50 mg tablet 50 mg PO BEDTIME potassium chloride 20 mEq tablet,ER particles/crystals 20 meq PO BID PRN (Reason: unknown) clonazepam 2 mg tablet 2 mg PO BID PRN (Reason: Anxiety) nicotine 21 mg/24 hr patch 24 hour 1 patch transdermal DAILY Nitrostat 0.4 mg Tablet, Sublingual 0.4 mg SUBLINGUAL Q5M PRN (Reason: Chest Pain) Rx Instructions: do not exceed 3 doses per episode Adult Aspirin Regimen 81 mg tablet,delayed release (DR/EC) 81 mg PO QAM diclofenac sodium 75 mg tablet,delayed release (DR/EC) 75 mg PO Q12H PRN (Reason: pain) Qty: 20 0RF cyclobenzaprine 10 mg tablet 10 mg PO BID PRN (Reason: muscle spasm) Qty: 20 0RF Discharge Orders: Discharge ED (Routine); Ordered 10/14/22 Ordered By: Mercedes Gaines Referrals: Nick Nettles MD [Primary Care Provider] - 1-3 days Discharge Diet: Advance as tolerated Discharge Activity: Resume usual activity Patient Instructions: Constipation (ED) Coding Level of Care Code ED [employer] for [employer]
[2022-10-14] MEDS: lactulose oral liq 20 gm/30 mL UDC 30 GM PO (08:26)
[2022-10-14 08:29] VITALS: BP 109/77; O2SAT 99
== END 2022-10-14 08:49 | disposition home or self-care (01) ==
PROVIDERS: Emergency Provider Emergency Medicine; PCP Family Medicine
DX: K59.00 Constipation, unspecified (principal); Z79.82 Long term (current) use of aspirin; Z79.02 Long term (current) use of antithrombotics/antiplatelets; F17.210 Nicotine dependence, cigarettes, uncomplicated; I25.10 Atherosclerotic heart disease of native coronary artery without angina pectoris; J44.9 Chronic obstructive pulmonary disease, unspecified; I10 Essential (primary) hypertension; E78.2 Mixed hyperlipidemia
CPT/HCPCS: 74018; 99283

== ENCOUNTER 2022-10-26 13:32 | Outpatient (RCR) | payer MEDICAID, SELFPAY | END 2022-10-27 23:59 | disposition home or self-care (01) | LOC: SPT 13:32 | PROVIDERS: PCP Family Medicine; Visit Provider Orthopaedic Surgery | DX: M25.561 Pain in right knee (principal); Z96.651 Presence of right artificial knee joint | CPT/HCPCS: 97110 ==

== ENCOUNTER 2022-10-31 09:43 | Emergency (ER) | payer MEDICAID, SELFPAY ==
[2022-10-31 09:49] VITALS: BP 94/57; PULSE 63; RESP 16; TEMP 36.1; O2SAT 98; BMI 27.2
--- NOTE | 2022-10-31 10:35 | ED_ITS ---
HPI - Neck Pain/Injury General: Chief Complaint: Neck Pain/Injury Stated Complaint: neck pain, arms going numb Time Seen by Provider: 10/31/22 09:49 Source: patient Mode of arrival: ambulatory History of Present Illness: 51-year-old male presents emergency room complaining of neck pain with bilateral numbness and tingling into his arms. His pain radiating down his arms he has known history of cervical disc disease he had difficulty sleeping he has had pins and evaluation in his neck before. His symptoms been present for a couple of months. He previously had x-rays in regard to this told his hardware is still well-placed. No new or changing symptoms patient presented here because he wants to have a CT done to further evaluate. No recent trauma or injury or falls MD complaint: neck pain Onset (ago): month(s) Place: home Radiation: right upper extremity and left upper extremity Quality: aching and tingling Duration: constant Relieving factors: none Exacerbating factors: none Associated symptoms: Denies dysphagia, difficulty walking, dizziness, fevers/chills, headache(s), nausea, swollen glands, tingling or weakness Review of Systems Const: Denies: fever(s), chills, body aches, change in appetite, fatigue or malaise ENMT: Denies: throat pain, ear or mastoid pain, nasal discharge or nasal congestion Card: Denies: chest pain, edema, dyspnea on exertion or orthopnea Resp: Denies: dyspnea, productive cough or non-productive cough GI: Denies: abdominal pain, nausea or dysphagia : Denies: flank pain, dysuria, urinary frequency or urinary urgency Musc: Reports: neck pain and extremity pain Skin/Breast: Denies: rash or pruritus Neuro: Denies: headache(s), difficulty walking or dizziness PFSH ED PFSH: Medical History 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 difficile colitis Cervical spondylosis Chronic migraine Chronic pancreatitis COPD (chronic obstructive pulmonary disease) Diverticulosis Essential (primary) hypertension GERD (gastroesophageal reflux disease) H. pylori infection Heart attack Hx of coronary angiogram Medical marijuana use Mixed hyperlipidemia Osteoarthritis Pharyngitis Radiculopathy, lumbar region Seizure disorder SOB (shortness of breath) Torsion of appendix testis Urethral stricture Surgical History H/O chest tube placement H/O left knee surgery H/O neck surgery H/O removal of testicle H/O right knee surgery History of appendectomy History of cholecystectomy Stented coronary artery Family History Brother Parkinson disease Cancer Diabetes Stroke Family/Other Cancer Chronic kidney disease (CKD) Suicide Grandmother CAD (coronary artery disease) Cancer Lung disease Grandfather Dementia Mother Lung disease Father Suicide Denies family history of Clotting disorder Anesthesia complication Bleeding disorder Social History Smoking and tobacco status: current every day smoker cigarettes [ Other cigarette details: Had quit but today picked up again] Quit status (tobacco): has tried quititng Smoking risk assessment/counseling performed?: Yes Alcohol intake: never Lives independently: Yes Household members: significant other Current occupational status: disabled Current gender identity: Male Physical Exam Const: GENERAL APPEARANCE: cooperative and comfortable ORIENTATION/CONSCIOUSNESS: Yes awake, Yes oriented to person, Yes oriented to place and Yes oriented to time HENMT: COMMON NORMALS: normocephalic, atraumatic and hearing grossly normal bilaterally HEAD & SCALP: normocephalic and atraumatic Resp: COMMON NORMALS: normal respiratory effort, No retractions, No use of accessory muscles and clear to auscultation bilaterally AUSCULTATION: clear to auscultation bilaterally Cardio: COMMON NORMALS: regular rate, regular rhythm and No murmurs present (Cardio) RATE: regular rate RHYTHM: regular rhythm GI: COMMON NORMALS: Soft to palpation and No hepatosplenomegaly present AUSCULTATION: Yes normoactive bowel sounds PALPATION: Yes Soft to palpation, No Tenderness to palpation present (GI), No Guarding due to palpation present (GI) and Yes No hepatosplenomegaly present Extremity: COMMON NORMALS: normal to inspection, capillary refill normal, no clubbing, cyanosis or edema, no calf tenderness and no pedal edema Neuro: SENSORIUM/ORIENTATION: Yes oriented to person, Yes oriented to place and Yes oriented to time Skin: COMMON NORMALS: no rashes or lesions noted GENERAL SKIN EXAM: no rashes or lesions noted Course Vital Signs: Vital signs: Vital Signs Temperature 96.9 F L 10/31/22 09:49 Pulse Rate 63 10/31/22 09:49 Respiratory Rate 16 10/31/22 09:49 Blood Pressure 94/57 10/31/22 09:49 Pulse Oximetry 98 10/31/22 09:49 Oxygen Delivery Me thod 10/31/22 09:49 MDM - Neck Pain/Injury Medical Decision Making Cervical radiculopathy with neck pain. Medications given as above continue his gabapentin steroid taper recommend follow-up with neurosurgery for consideration of MRI if symptoms persist he does not have any acute emergent condition at this time. Medical Records I reviewed the patient's medical records. Lab Data I reviewed the patient's lab results. Discharge Plan Discharge Patient Disposition: Home Clinical Impression: Cervical radiculopathy Condition: Stable Prescriptions: New prednisone 20 mg tablet 20 mg PO TID Qty: 15 0RF Rx Instructions: 1 p.o. 3 times daily x3 days, 1 p.o. twice daily x2 days, 1 p.o. daily x2 days tizanidine 4 mg tablet 4 mg PO Q8H PRN (Reason: muscle spasticity) Qty: 20 0RF No Action zonisamide 100 mg capsule 200 mg PO BID tamsulosin 0.4 mg capsule 0.4 mg PO QAM albuterol sulfate [ProAir HFA] 90 mcg/actuation HFA aerosol inhaler 2 puff INHALATION Q4H PRN (Reason: Shortness Of Breath) buspirone 30 mg tablet 30 mg PO QAM atorvastatin 80 mg tablet See Rx Instructions .ROUTE .COMPLEX Qty: 90 3RF Dose Instruction: TAKE 1 TABLET BY MOUTH EVERY DAY Rx Instructions: TAKE 1 TABLET BY MOUTH EVERY DAY clopidogrel 75 mg tablet 75 mg PO DAILY Qty: 90 3RF Adult Aspirin Regimen 81 mg tablet,delayed release (DR/EC) 81 mg PO QAM Qty: 90 3RF pantoprazole 40 mg tablet,delayed release (DR/EC) 40 mg PO BIDWM Qty: 60 0RF quetiapine 50 mg tablet 50 mg PO BEDTIME potassium chloride 20 mEq tablet,ER particles/crystals 20 meq PO BID PRN (Reason: unknown) clonazepam 2 mg tablet 2 mg PO BID PRN (Reason: Anxiety) nicotine 21 mg/24 hr patch 24 hour 1 patch transdermal DAILY Nitrostat 0.4 mg Tablet, Sublingual 0.4 mg SUBLINGUAL Q5M PRN (Reason: Chest Pain) Rx Instructions: do not exceed 3 doses per episode diclofenac sodium 75 mg tablet,delayed release (DR/EC) 75 mg PO Q12H PRN (Reason: pain) Qty: 20 0RF cyclobenzaprine 10 mg tablet 10 mg PO BID PRN (Reason: muscle spasm) Qty: 20 0RF Colace 100 mg capsule 100 mg PO BID Qty: 60 0RF ondansetron 4 mg tablet,disintegrating 4 mg PO Q6H PRN (Reason: nausea and vomiting) Qty: 14 0RF Discharge Orders: Discharge ED (Routine); Ordered 10/31/22 Ordered By: Torito Mendosa Referrals: Davy Blanton [Primary Care Provider] - Patient Instructions: Opioid Safety, Pain Management Activity Restrictions/Additional Instructions: Follow-up with your primary care doctor or establish with the pain clinic as soon as you are able. Also recommend you follow-up with your previous surgeon to further evaluate. 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
[2022-10-31] MEDS: dexamethasone 10 mg/mL INJ IVP (10:49)
[2022-10-31] MEDS: orphenadrine 30 mg/mL Inj 2 mL 60 MG IVP (10:51)
[2022-10-31] MEDS: ketorolac 30 mg/mL INJ IVP (10:54)
[2022-10-31] MEDS: HYDROcodone-acetaminophen 5-325 mg Tablet 1 TAB PO (12:51)
== END 2022-10-31 12:55 | disposition home or self-care (01) ==
PROVIDERS: Emergency Provider Family Medicine; PCP Family Medicine
DX: M54.12 Radiculopathy, cervical region (principal); Z79.82 Long term (current) use of aspirin; Z79.02 Long term (current) use of antithrombotics/antiplatelets; F17.210 Nicotine dependence, cigarettes, uncomplicated; I25.10 Atherosclerotic heart disease of native coronary artery without angina pectoris; J44.9 Chronic obstructive pulmonary disease, unspecified; I10 Essential (primary) hypertension; E78.2 Mixed hyperlipidemia
CPT/HCPCS: 96374; 96375; 99284; J1100; J1885; J2360

== ENCOUNTER → 2023-01-25 13:42 | Outpatient (BNVA) | payer MEDICAID, SELFPAY | PROVIDERS: PCP Family Medicine; Visit Provider Internal Medicine Cardiovascular Disease | DX: I25.10 Atherosclerotic heart disease of native coronary artery without angina pectoris (principal); E78.2 Mixed hyperlipidemia; I10 Essential (primary) hypertension; J44.9 Chronic obstructive pulmonary disease, unspecified; Z96.651 Presence of right artificial knee joint; G89.29 Other chronic pain; F17.210 Nicotine dependence, cigarettes, uncomplicated; Z79.82 Long term (current) use of aspirin | CPT/HCPCS: 99214 ==

== ENCOUNTER 2023-04-09 12:46 | Emergency (ER) | payer MEDICAID, SELFPAY ==
[2023-04-09 12:58] VITALS: BP 123/80; PULSE 70; RESP 22; TEMP 36.5; O2SAT 90; BMI 26.9
[2023-04-09 14:09] LABS: SARS Covid-2 Antigen negative (Negative)
--- NOTE | 2023-04-09 15:41 | W.ED.NAVMDI ---
Documented by User: JOSE Herrera 04/09/23 17:01 HPI - Nausea/Vomiting/Diarrhea General: Chief complaint: Nausea/Vomiting/Diarrhea Stated complaint: nausea, diarrhea Time Seen by Provider: 04/09/23 15:15 Source: patient Mode of arrival: ambulatory Limitations: no limitations History of Present Illness: Patient is a 52-year-old male who presents to ED today with complaint of diarrhea, body aches, and generally feeling unwell over the past 6 days or so. Patient states he has a longstanding history of chronic abdominal pains requiring multiple work-ups. He has been diagnosed with chronic pancreatitis. He has had previous EGDs and colonoscopies. According to previous documentation he was found to have esophagitis, duodenitis, gastritis. He takes Protonix daily. 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 States diarrhea now feels similar to when he had c. diff. Reports 10-15+ stools in a 24 hour period x 6 days. Patient is not running fevers currently but does complain of chills. He feels like his abdominal pain today feels similar to his chronic pains. He is not vomiting. MD elicited complaint: diarrhea and other (body aches, generally feeling unwell) Onset (ago): day(s) Description of diarrhea: watery Associated nausea: No Associated abdominal pain: Yes Location of pain: RLQ and LLQ Severity: moderate Quality: cramping Exacerbating factors: none Relieving factors: none Associated symtoms: Denies chest pain, dizziness, dysuria, fatigue, headache(s), malaise or nausea Treatment prior to arrival: immodium Review of Systems Const: Reports: chills and body aches; Denies: fever(s), fatigue or malaise Card: Denies: chest pain Resp: Denies: dyspnea GI: Reports: abdominal pain, diarrhea and GI cramping; Denies: nausea, vomiting, hematemesis, pain on defecation, rectal pain, hematochezia, melena, mucus in stool or white/light colored stool : Denies: flank pain, difficulty urinating, dysuria, urinary frequency or urinary urgency Musc: Denies: neck pain, back pain, extremity pain or joint pain Skin/Breast: Denies: rash Neuro: Denies: headache(s), numbness in extremities, weakness in extremities, sensory changes or dizziness PFS ED PFSH: Medical History Alpha galactosidase deficiency Atherosclerosis of coronary artery C. difficile colitis Chronic pancreatitis COPD (chronic obstructive pulmonary disease) Diverticulosis Essential (primary) hypertension GERD (gastroesophageal reflux disease) Heart attack Medical marijuana use Mixed hyperlipidemia Osteoarthritis rt knee, cervical and Lumbar spine Seizure disorder Urethral stricture Surgical History H/O chest tube placement H/O left knee surgery H/O neck surgery H/O removal of testicle H/O right knee surgery History of appendectomy History of cholecystectomy Hx of reconstruction of anterior cruciate ligament tear Status post right knee replacement Status post right knee replacement Stented coronary artery Family History Brother Parkinson disease Cancer Diabetes Stroke Family/Other Cancer Chronic kidney disease (CKD) Suicide Grandmother CAD (coronary artery disease) Cancer Lung disease Grandfather Dementia Mother Lung disease Father Suicide Denies family history of Clotting disorder Anesthesia complication Bleeding disorder Social History Smoking and tobacco status: current every day smoker cigarettes [ Other cigarette details: Had quit but today picked up again] Quit status (tobacco): has tried quititng Smoking risk assessment/counseling performed?: Yes Alcohol intake: never Substance/Drug Use: current Substance/Drug use frequency: daily Other substance/drug use details: medical card Lives independently: Yes Household members: significant other Current occupational status: disabled Do you think of yourself as: Straight/Heterosexual Current gender identity: Male Physical Exam Const: COMMON NORMALS: no acute distress, average body habitus, patient oriented x3, no limitations, alert and well nourished Resp: COMMON NORMALS: normal respiratory effort and clear to auscultation bilaterally AUSCULTATION: clear to auscultation bilaterally Cardio: COMMON NORMALS: regular rate and regular rhythm RATE: regular rate RHYTHM: regular rhythm GI: COMMON NORMALS: Soft to palpation, No hepatosplenomegaly present and no masses INSPECTION: Yes normal to inspection AUSCULTATION: Yes Hyperactive bowel sounds present PALPATION: Yes Soft to palpation, Yes Tenderness to palpation present (GI) (mild tenderness throughout-non surgical exam), No Guarding due to palpation present (GI), No Rigid due to palpation and Yes No hepatosplenomegaly present : COMMON NORMALS: Yes no CVA tenderness BLADDER/KIDNEY EXAM: Yes no CVA tenderness Back/Pelvis: COMMON NORMALS: no CVA tenderness Extremity: COMMON NORMALS: normal to inspection GENERAL: Yes normal exam except as noted Neuro: ALISA COMA SCALE: document GCS findings Alisa coma scale eye opening: Spontaneous Alisa coma scale verbal response: Orientated [place] coma scale motor response: Obey commands [place] coma scale total score: 15 COMMON NORMALS: patient oriented x3 SENSORIUM/ORIENTATION: Yes alert Skin: COMMON NORMALS: no rashes or lesions noted GENERAL SKIN EXAM: no rashes or lesions noted Course Vital Signs: Vital signs: Vital Signs Temperature 97.7 F 04/09/23 12:58 Pulse Rate 68 04/09/23 16:32 Respiratory Rate 20 H 04/09/23 16:32 Blood Pressure 116/72 04/09/23 16:32 Pulse Oximetry 98 04/09/23 16:32 Oxygen Delivery Me thod Room Air 04/09/23 16:32 MDM - Nausea/Vomiting/Diarrhea Lab Data 04/09/23 16:06 04/09/23 16:06 Laboratory Results WBC 11.14 10^3/uL (3.29-11.43) 04/09/23 16:06 RBC 4.19 10^6/uL (3.85-5.65) 04/09/23 16:06 Hgb 14.00 g/dL (11.27-16.99) 04/09/23 16:06 Hct 41.6 % (37-53) 04/09/23 16:06 MCV 99.3 fl (82-101) 04/09/23 16:06 MCH 33.4 pg (27-33) H 04/09/23 16:06 MCHC 33.7 g/dL (30-55) 04/09/23 16:06 RDW 12.1 % (12.1-15.1) 04/09/23 16:06 Plt Count 199 10^3/cmm (157-399) 04/09/23 16:06 MPV 9.1 fL (7.4-10.4) 04/09/23 16:06 Neut % (Auto) 66.1 % 04/09/23 16:06 Lymph % (Auto) 26.8 % 04/09/23 16:06 Simpson % (Auto) 4.9 % 04/09/23 16:06 Eos % (Auto) 1.3 % 04/09/23 16:06 Baso % (Auto) 0.5 % 04/09/23 16:06 Neut # (Auto) 7.36 10^3/uL (1.8-7.7) 04/09/23 16:06 Lymph # (Auto) 3.0 10^3/uL (0.8-4.8) 04/09/23 16:06 Simpson # (Auto) 0.6 10^3/uL (0.2-0.9) 04/09/23 16:06 Eos # (Auto) 0.2 10^3/uL (0.0-0.8) 04/09/23 16:06 Baso # (Auto) 0.1 10^3/uL (0.0-0.1) 04/09/23 16:06 Nucleated RBC % (auto) 0 % 04/09/23 16:06 Nucleated RBCs # 0.0 /100WBC 04/09/23 16:06 Sodium 144 mmol/L (136-145) 04/09/23 16:06 Potassium 3.5 mmol/L (3.5-5.1) 04/09/23 16:06 Chloride 111 mmol/L (98-107) H 04/09/23 16:06 Carbon Dioxide 22 mmol/L (22-29) 04/09/23 16:06 Anion Gap 14.5 (5-19) 04/09/23 16:06 BUN 13 mg/dL (6-20) 04/09/23 16:06 Creatinine 1.0 mg/dL (0.7-1.2) 04/09/23 16:06 GFR Calculation 78.8 mL/min (90-130) L 04/09/23 16:06 Glucose 96 mg/dL (65-115) 04/09/23 16:06 Calculated Osmolality 298 mOsm/kg (285-295) H 04/09/23 16:06 Calcium 9.0 mg/dL (8.5-10.5) 04/09/23 16:06 Total Bilirubin 0.7 mg/dL (0.15-1.2) 04/09/23 16:06 AST 11 U/L (0-40) 04/09/23 16:06 ALT 7 U/L (0-41) 04/09/23 16:06 Alkaline Phosphatase 74 U/L (40-130) 04/09/23 16:06 Total Protein 7.0 g/dL (6.6-8.7) 04/09/23 16:06 Albumin 4.8 g/dL (3.5-5.2) 04/09/23 16:06 Globulin 2.2 g/dL (1.3-4.6) 04/09/23 16:06 Lipase 24 U/L (13-60) 04/09/23 16:06 SARS-CoV-2 Ag (Rapid) negative (Negative) 04/09/23 13:38 Discharge Plan Discharge Patient Disposition: Home Clinical Impression: Gastroenteritis, Dehydration Condition: Stable Prescriptions: No Action zonisamide 100 mg capsule 200 mg PO BID tamsulosin 0.4 mg capsule 0.4 mg PO QAM albuterol sulfate [ProAir HFA] 90 mcg/actuation HFA aerosol inhaler 2 puff INHALATION Q4H PRN (Reason: Shortness Of Breath) buspirone 30 mg tablet 30 mg PO QAM albuterol sulfate 2.5 mg /3 mL (0.083 %) solution for nebulization 2.5 mg inhalation BID atorvastatin 80 mg tablet See Rx Instructions .ROUTE .COMPLEX Qty: 90 3RF Dose Instruction: TAKE 1 TABLET BY MOUTH EVERY DAY Rx Instructions: TAKE 1 TABLET BY MOUTH EVERY DAY clopidogrel 75 mg tablet 75 mg PO DAILY Qty: 90 3RF Adult Aspirin Regimen 81 mg tablet,delayed release (DR/EC) 81 mg PO QAM Qty: 90 3RF pantoprazole 40 mg tablet,delayed release (DR/EC) 40 mg PO BIDWM Qty: 60 0RF quetiapine 50 mg tablet 50 mg PO BEDTIME potassium chloride 20 mEq tablet,ER particles/crystals 20 meq PO BID PRN (Reason: unknown) clonazepam 2 mg tablet 2 mg PO BID PRN (Reason: Anxiety) Nitrostat 0.4 mg Tablet, Sublingual 0.4 mg SUBLINGUAL Q5M PRN (Reason: Chest Pain) Rx Instructions: do not exceed 3 doses per episode diclofenac sodium 75 mg tablet,delayed release (DR/EC) 75 mg PO Q12H PRN (Reason: pain) Qty: 20 0RF ondansetron 4 mg tablet,disintegrating 4 mg PO Q6H PRN (Reason: nausea and vomiting) Qty: 14 0RF Discharge Orders: Discharge ED (Routine); Ordered 04/09/23 Ordered By: Gee Tripathi Referrals: Davy Blanton [Primary Care Provider] - Discharge Diet: Advance as tolerated Discharge Activity: Increase activity as tolerated Patient Instructions: Gastroenteritis (ED) Activity Restrictions/Additional Instructions: Home and rest. Drink plenty of water and fluids. Continue with a clear liquid diet and slowly increase to a normal diet over 3 to 5 days. Use Zofran as needed for nausea and vomiting. Follow-up with primary care in 2 to 3 days for recheck. Return to ED for worsening symptoms or new concerns. 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 difficile colitis Chronic pancreatitis COPD (chronic obstructive pulmonary disease) Diverticulosis Essential (primary) hypertension GERD (gastroesophageal reflux disease) Heart attack Medical marijuana use Mixed hyperlipidemia Osteoarthritis rt knee, cervical and Lumbar spine Seizure disorder Urethral stricture Surgical History H/O chest tube placement H/O left knee surgery H/O neck surgery H/O removal of testicle H/O right knee surgery History of appendectomy History of cholecystectomy Hx of reconstruction of anterior cruciate ligament tear Status post right knee replacement Status post right knee replacement Stented coronary artery Family History Brother Parkinson disease Cancer Diabetes Stroke Family/Other Cancer Chronic kidney disease (CKD) Suicide Grandmother CAD (coronary artery disease) Cancer Lung disease Grandfather Dementia Mother Lung disease Father Suicide Denies family history of Clotting disorder Anesthesia complication Bleeding disorder Social History Smoking and tobacco status: current every day smoker cigarettes [ Other cigarette details: Had quit but today picked up again] Quit status (tobacco): has tried quititng Smoking risk assessment/counseling performed?: Yes Alcohol intake: never Substance/Drug Use: current Substance/Drug use frequency: daily Other substance/drug use details: medical card Lives independently: Yes Household members: significant other Current occupational status: disabled Do you think of yourself as: Straight/Heterosexual Current gender identity: Male Physical Exam Neuro: ALISA COMA SCALE: document GCS findings Alisa coma scale total score: 15 Course Vital Signs: Vital signs: Vital Signs Temperature 97.7 F 04/09/23 12:58 Pulse Rate 68 04/09/23 16:32 Respiratory Rate 20 H 04/09/23 16:32 Blood Pressure 116/72 04/09/23 16:32 Pulse Oximetry 98 04/09/23 16:32 Oxygen Delivery Me thod Room Air 04/09/23 16:32 MDM - Nausea/Vomiting/Diarrhea Medical Decision Making I received this patient from Marlen Alanis PA-C at the end of her shift. On exam the patient's abdomen was soft nontender. Patient had no further bowel movements and was unable to give us any bowel movements after being here 6 hours. Patient felt better after IV fluids and Zofran. Patient wished to go home. Discussed with need for follow-up with primary care may be collecting the stool to check for C. difficile. Laboratory values were unremarkable. Believe the patient most likely had a bout of gastroenteritis with some dehydration that was resolved in the ER for fluids and nausea medication. Patient knows to continue with a light diet increasing from clear liquids to a normal diet over 3 to 5 days. Patient understands to return to the ER for worsening symptoms or new concerns. Differential Diagnosis Likely food poisoning, gastroenteritis, clostridium difficile infection and dehydration Lab Data 04/09/23 16:06 04/09/23 16:06 Laboratory Results WBC 11.14 10^3/uL (3.29-11.43) 04/09/23 16:06 RBC 4.19 10^6/uL (3.85-5.65) 04/09/23 16:06 Hgb 14.00 g/dL (11.27-16.99) 04/09/23 16:06 Hct 41.6 % (37-53) 04/09/23 16:06 MCV 99.3 fl (82-101) 04/09/23 16:06 MCH 33.4 pg (27-33) H 04/09/23 16:06 MCHC 33.7 g/dL (30-55) 04/09/23 16:06 RDW 12.1 % (12.1-15.1) 04/09/23 16:06 Plt Count 199 10^3/cmm (157-399) 04/09/23 16:06 MPV 9.1 fL (7.4-10.4) 04/09/23 16:06 Neut % (Auto) 66.1 % 04/09/23 16:06 Lymph % (Auto) 26.8 % 04/09/23 16:06 Simpson % (Auto) 4.9 % 04/09/23 16:06 Eos % (Auto) 1.3 % 04/09/23 16:06 Baso % (Auto) 0.5 % 04/09/23 16:06 Neut # (Auto) 7.36 10^3/uL (1.8-7.7) 04/09/23 16:06 Lymph # (Auto) 3.0 10^3/uL (0.8-4.8) 04/09/23 16:06 Simpson # (Auto) 0.6 10^3/uL (0.2-0.9) 04/09/23 16:06 Eos # (Auto) 0.2 10^3/uL (0.0-0.8) 04/09/23 16:06 Baso # (Auto) 0.1 10^3/uL (0.0-0.1) 04/09/23 16:06 Nucleated RBC % (auto) 0 % 04/09/23 16:06 Nucleated RBCs # 0.0 /100WBC 04/09/23 16:06 Sodium 144 mmol/L (136-145) 04/09/23 16:06 Potassium 3.5 mmol/L (3.5-5.1) 04/09/23 16:06 Chloride 111 mmol/L (98-107) H 04/09/23 16:06 Carbon Dioxide 22 mmol/L (22-29) 04/09/23 16:06 Anion Gap 14.5 (5-19) 04/09/23 16:06 BUN 13 mg/dL (6-20) 04/09/23 16:06 Creatinine 1.0 mg/dL (0.7-1.2) 04/09/23 16:06 GFR Calculation 78.8 mL/min (90-130) L 04/09/23 16:06 Glucose 96 mg/dL (65-115) 04/09/23 16:06 Calculated Osmolality 298 mOsm/kg (285-295) H 04/09/23 16:06 Calcium 9.0 mg/dL (8.5-10.5) 04/09/23 16:06 Total Bilirubin 0.7 mg/dL (0.15-1.2) 04/09/23 16:06 AST 11 U/L (0-40) 04/09/23 16:06 ALT 7 U/L (0-41) 04/09/23 16:06 Alkaline Phosphatase 74 U/L (40-130) 04/09/23 16:06 Total Protein 7.0 g/dL (6.6-8.7) 04/09/23 16:06 Albumin 4.8 g/dL (3.5-5.2) 04/09/23 16:06 Globulin 2.2 g/dL (1.3-4.6) 04/09/23 16:06 Lipase 24 U/L (13-60) 04/09/23 16:06 SARS-CoV-2 Ag (Rapid) negative (Negative) 04/09/23 13:38 Discharge Plan Discharge Patient Disposition: Home Clinical Impression: Gastroenteritis, Dehydration Condition: Stable Prescriptions: No Action zonisamide 100 mg capsule 200 mg PO BID tamsulosin 0.4 mg capsule 0.4 mg PO QAM albuterol sulfate [ProAir HFA] 90 mcg/actuation HFA aerosol inhaler 2 puff INHALATION Q4H PRN (Reason: Shortness Of Breath) buspirone 30 mg tablet 30 mg PO QAM albuterol sulfate 2.5 mg /3 mL (0.083 %) solution for nebulization 2.5 mg inhalation BID atorvastatin 80 mg tablet See Rx Instructions .ROUTE .COMPLEX Qty: 90 3RF Dose Instruction: TAKE 1 TABLET BY MOUTH EVERY DAY Rx Instructions: TAKE 1 TABLET BY MOUTH EVERY DAY clopidogrel 75 mg tablet 75 mg PO DAILY Qty: 90 3RF Adult Aspirin Regimen 81 mg tablet,delayed release (DR/EC) 81 mg PO QAM Qty: 90 3RF pantoprazole 40 mg tablet,delayed release (DR/EC) 40 mg PO BIDWM Qty: 60 0RF quetiapine 50 mg tablet 50 mg PO BEDTIME potassium chloride 20 mEq tablet,ER particles/crystals 20 meq PO BID PRN (Reason: unknown) clonazepam 2 mg tablet 2 mg PO BID PRN (Reason: Anxiety) Nitrostat 0.4 mg Tablet, Sublingual 0.4 mg SUBLINGUAL Q5M PRN (Reason: Chest Pain) Rx Instructions: do not exceed 3 doses per episode diclofenac sodium 75 mg tablet,delayed release (DR/EC) 75 mg PO Q12H PRN (Reason: pain) Qty: 20 0RF ondansetron 4 mg tablet,disintegrating 4 mg PO Q6H PRN (Reason: nausea and vomiting) Qty: 14 0RF Discharge Orders: Discharge ED (Routine); Ordered 04/09/23 Ordered By: Gee Tripathi Referrals: Davy Blanton [Primary Care Provider] - Discharge Diet: Advance as tolerated Discharge Activity: Increase activity as tolerated Patient Instructions: Gastroenteritis (ED) Activity Restrictions/Additional Instructions: Home and rest. Drink plenty of water and fluids. Continue with a clear liquid diet and slowly increase to a normal diet over 3 to 5 days. Use Zofran as needed for nausea and vomiting. Follow-up with primary care in 2 to 3 days for recheck. Return to ED for worsening symptoms or new concerns. 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
[2023-04-09] MEDS: sodium chloride 0.9% 1,000 ML 999 ML IV (16:00)
[2023-04-09 16:14] LABS: Basophils # 0.1 10^3/uL (0.0-0.1); Basophils % 0.5 %; Eosinophils # 0.2 10^3/uL (0.0-0.8); Eosinophils % 1.3 %; Hematocrit 41.6 % (37-53); Lymphocytes % 26.8 %; Mean Corpuscular HGB Conc 33.7 g/dL (30-55); Mean Corpuscular Hemoglobin 33.4 pg (27-33); Mean Corpuscular Volume 99.3 fl (82-101); Mean Platelet Volume 9.1 fL (7.4-10.4); Monocytes # 0.6 10^3/uL (0.2-0.9); Monocytes % 4.9 %; Neutrophils # 7.36 10^3/uL (1.8-7.7); Neutrophils % 66.1 %; Nucleated Red Blood Cells % 0 %; Platelet Count 199 10^3/cmm (157-399); Red Blood Count 4.19 10^6/uL (3.85-5.65); Red Cell Distribution Width 12.1 % (12.1-15.1); White Blood Count 11.14 10^3/uL (3.29-11.43)
[2023-04-09] MEDS: ondansetron 2 mg/ML SDV 2 mL 4 MG IVP (16:26)
[2023-04-09 16:31] LABS: Alanine Aminotransferase 7 U/L (0-41); Albumin Level 4.8 g/dL (3.5-5.2); Alkaline Phosphatase 74 U/L (40-130); Anion Gap 14.5 (5-19); Aspartate Amino Transferase 11 U/L (0-40); Blood Urea Nitrogen 13 mg/dL (6-20); Carbon Dioxide 22 mmol/L (22-29); Chloride 111 mmol/L (98-107); Globulin 2.2 g/dL (1.3-4.6); Glomerular Filtration Rate 78.8 mL/min (90-130); Glucose 96 mg/dL (65-115); Lipase 24 U/L (13-60); Osmolality Calculated 298 mOsm/kg (285-295); Potassium 3.5 mmol/L (3.5-5.1); Sodium 144 mmol/L (136-145); Total Bilirubin 0.7 mg/dL (0.15-1.2)
[2023-04-09 16:32] VITALS: BP 116/72; PULSE 68; RESP 20; O2SAT 98
== END 2023-04-09 18:48 | disposition home or self-care (01) ==
PROVIDERS: Family Medicine; Physician Assistant; Emergency Provider Nurse Practitioner Family; PCP Family Medicine
DX: K52.9 Noninfective gastroenteritis and colitis, unspecified (principal); E86.0 Dehydration; Z79.82 Long term (current) use of aspirin; Z79.02 Long term (current) use of antithrombotics/antiplatelets; Z20.822 Contact with and (suspected) exposure to COVID-19; F17.210 Nicotine dependence, cigarettes, uncomplicated; I25.10 Atherosclerotic heart disease of native coronary artery without angina pectoris; J44.9 Chronic obstructive pulmonary disease, unspecified; I10 Essential (primary) hypertension; E78.2 Mixed hyperlipidemia
CPT/HCPCS: 80053; 83690; 85025; 87426; 96361; 96374; 99284; J2405; J7030

== ENCOUNTER 2023-05-28 09:30 | Emergency (ER) | payer MEDICAID, SELFPAY ==
--- NOTE | 2023-05-28 09:31 | XRR_ITS ---
PROCEDURE INFORMATION: Exam: XR Chest Exam date and time: 05/28/2023 9:43 AM Age: 52 years old Clinical indication: Cough and dyspnea; Patient HX: Covid +; Additional info: Dyspnea/cough TECHNIQUE: Imaging protocol: Radiologic exam of the chest. Views: 1 view. COMPARISON: CR XR chest 1V portable [id number] 08/05/2022 10:06 AM FINDINGS: Lungs: There is no consolidation. Pleural spaces: There is no pleural effusion or pneumothorax. Heart/Mediastinum: Cardiomediastinal contours are unremarkable. Bones/joints: No acute fracture. Lower cervical fusion hardware is visible. There is dystrophic ligamentous calcification between the left clavicle and coracoid process. XR/XR chest 1V portable [id number] IMPRESSION: No acute findings.
[2023-05-28 10:00] VITALS: BP 137/83; PULSE 82; RESP 18; TEMP 36.8; O2SAT 98; BMI 27.7
--- NOTE | 2023-05-28 10:31 | ED_ITS ---
HPI - COVID General: Chief Complaint: COVID symptoms Stated Complaint: covid + Time Seen by Provider: 05/28/23 09:31 Source: patient Mode of arrival: ambulatory Triage information: Has fever, cough or shortness of breath . Exposure to COVID + person last 14 days History of Present Illness: 52-year-old male presents emergency room with complaint of cough cold he has had some diarrhea nausea and vomiting cough has been nonproductive. He was recently on a cruise a couple days into a 7-day cruise he started having symptoms he was seen by the ships doctor and given loperamide and Levaquin. He states despite this his symptoms persisted he was tested for COVID on 05/25/2023 and it was positive. He had symptoms for 3 to 4 days prior to that. He is now on day 6 or 7. He still has a mild is nonproductive cough nausea and diarrhea. MD complaint: known COVID positive Prior covid testing: yes, results known COVID 19 common symptoms: positive fever(s), chills, cough, non-productive cough, dyspnea, body aches and headache(s) COVID 19 other sytmptoms: negative chest pain Pertinent comorbid conditions: hypertension, heart disease, COPD/respiratory disease, chronic kidney disease and other (Chronic pancreatitis) Treatment prior to arrival: acetaminophen, ibuprofen and other (Loperamide and Levaquin) COVID Results: SARS-CoV-2 Antigen (Rapid) negative (Negative) 04/09/23 13:38 SARS-CoV-2 RNA (RT-PCR) Detected (NOT DETECTED) A 02/26/21 10: 58 Nasal/Oral Coronavirus 2019 PCR Negative 03/30/20 09:00 SARS-CoV-2 (PCR) Not detected (NOT DETECT) 10/05/21 23:59 Coronavirus Type 229E (PCR) Not detected (NOT DETECT) 10/05/21 23:59 Review of Systems Const: Reports: fever(s), chills and body aches Card: Denies: chest pain Resp: Reports: dyspnea and non-productive cough GI: Denies: abdominal pain : Denies: dysuria, urinary frequency or urinary urgency Musc: Denies: neck pain or back pain Skin/Breast: Denies: rash Neuro: Reports: headache(s) PFS ED PFSH: Medical History Alpha galactosidase deficiency Atherosclerosis of coronary artery C. difficile colitis Chronic pancreatitis COPD (chronic obstructive pulmonary disease) Diverticulosis Essential (primary) hypertension GERD (gastroesophageal reflux disease) Heart attack Medical marijuana use Mixed hyperlipidemia Osteoarthritis rt knee, cervical and Lumbar spine Seizure disorder Urethral stricture Surgical History H/O chest tube placement H/O left knee surgery H/O neck surgery H/O removal of testicle H/O right knee surgery History of appendectomy History of cholecystectomy Hx of reconstruction of anterior cruciate ligament tear Status post right knee replacement Status post right knee replacement Stented coronary artery Family History Brother Parkinson disease Cancer Diabetes Stroke Family/Other Cancer Chronic kidney disease (CKD) Suicide Grandmother CAD (coronary artery disease) Cancer Lung disease Grandfather Dementia Mother Lung disease Father Suicide Denies family history of Clotting disorder Anesthesia complication Bleeding disorder Social History Smoking and tobacco/nicotine status: current every day tobacco/nicotine user cigarettes [ Other cigarette details: Had quit but today picked up again] Quit status (tobacco/nicotine): has tried quititng Alcohol intake: never Substance/Drug Use: current Substance/Drug use frequency: daily Other substance/drug use details: medical card Lives independently: Yes Household members: significant other Current occupational status: disabled Do you think of yourself as: Straight/Heterosexual Current gender identity: Male Physical Exam Const: COMMON NORMALS: no acute distress GENERAL APPEARANCE: cooperative and comfortable ORIENTATION/CONSCIOUSNESS: Yes awake, Yes oriented to person, Yes oriented to place and Yes oriented to time HENMT: COMMON NORMALS: normocephalic, atraumatic and hearing grossly normal bilaterally HEAD & SCALP: normocephalic and atraumatic Resp: COMMON NORMALS: normal respiratory effort, No retractions, No use of accessory muscles and clear to auscultation bilaterally AUSCULTATION: clear to auscultation bilaterally Cardio: COMMON NORMALS: regular rate, regular rhythm and No murmurs present (Cardio) RATE: regular rate RHYTHM: regular rhythm GI: COMMON NORMALS: Soft to palpation and No hepatosplenomegaly present AUSCULTATION: Yes normoactive bowel sounds PALPATION: Yes Soft to palpation, No Tenderness to palpation present (GI), No Guarding due to palpation present (GI) and Yes No hepatosplenomegaly present Extremity: COMMON NORMALS: normal to inspection, capillary refill normal, no clubbing, cyanosis or edema, no calf tenderness and no pedal edema Neuro: SENSORIUM/ORIENTATION: Yes oriented to person, Yes oriented to place and Yes oriented to time Skin: COMMON NORMALS: no rashes or lesions noted GENERAL SKIN EXAM: no rashes or lesions noted Course Vital Signs: Vital signs: Vital Signs Temperature 98.2 F 05/28/23 10:00 Pulse Rate 82 05/28/23 10:00 Respiratory Rate 18 05/28/23 10:00 Blood Pressure 137/83 05/28/23 10:00 Pulse Oximetry 98 05/28/23 10:00 Oxygen Delivery Me thod Room Air 05/28/23 10:00 MDM - COVID Medical Decision Making Known positive COVID he is outside the 5-day window for Paxlovid he is oxygenating well. No acute infiltrates on chest x-ray. Discharge home supportive cares follow-up as needed Medical Records I reviewed the patient's medical records. Lab Data I reviewed the patient's lab results. Radiology Impressions Chest X-Ray 05/28/23 09:31 IMPRESSION: No acute findings. SARS-CoV-2 Antigen (Rapid) negative (Negative) 04/09/23 13:38 SARS-CoV-2 RNA (RT-PCR) Detected (NOT DETECTED) A 02/26/21 10: 58 Nasal/Oral Coronavirus 2019 PCR Negative 03/30/20 09:00 SARS-CoV-2 (PCR) Not detected (NOT DETECT) 10/05/21 23:59 Coronavirus Type 229E (PCR) Not detected (NOT DETECT) 10/05/21 23:59 All radiology interpretation(s) finalized by discharge Discharge Plan Discharge Patient Disposition: Home Clinical Impression: COVID-19, Atherosclerotic heart disease of [place] coronary artery without angina pectoris, Essential (primary) hypertension, COPD (chronic obstructive pulmonary disease) Condition: Stable Prescriptions: No Action zonisamide 100 mg capsule 200 mg PO BID tamsulosin 0.4 mg capsule 0.4 mg PO QAM albuterol sulfate [ProAir HFA] 90 mcg/actuation HFA aerosol inhaler 2 puff INHALATION Q4H PRN (Reason: Shortness Of Breath) buspirone 30 mg tablet 30 mg PO QAM albuterol sulfate 2.5 mg /3 mL (0.083 %) solution for nebulization 2.5 mg inhalation BID atorvastatin 80 mg tablet See Rx Instructions .ROUTE .COMPLEX Qty: 90 3RF Dose Instruction: TAKE 1 TABLET BY MOUTH EVERY DAY Rx Instructions: TAKE 1 TABLET BY MOUTH EVERY DAY clopidogrel 75 mg tablet 75 mg PO DAILY Qty: 90 3RF Adult Aspirin Regimen 81 mg tablet,delayed release (DR/EC) 81 mg PO QAM Qty: 90 3RF pantoprazole 40 mg tablet,delayed release (DR/EC) 40 mg PO BIDWM Qty: 60 0RF quetiapine 50 mg tablet 50 mg PO BEDTIME potassium chloride 20 mEq tablet,ER particles/crystals 20 meq PO BID PRN (Reason: unknown) clonazepam 2 mg tablet 2 mg PO BID PRN (Reason: Anxiety) Nitrostat 0.4 mg Tablet, Sublingual 0.4 mg SUBLINGUAL Q5M PRN (Reason: Chest Pain) Rx Instructions: do not exceed 3 doses per episode diclofenac sodium 75 mg tablet,delayed release (DR/EC) 75 mg PO Q12H PRN (Reason: pain) Qty: 20 0RF ondansetron 4 mg tablet,disintegrating 4 mg PO Q6H PRN (Reason: nausea and vomiting) Qty: 14 0RF Discharge Orders: Discharge ED (Routine); Ordered 05/28/23 Ordered By: Torito Mendosa Referrals: Davy Blanton [Primary Care Provider] - Discharge Diet: Usual diet Discharge Activity: Increase activity as tolerated Patient Instructions: COVID-19 (Coronavirus Disease 2019) (ED), Opioid Safety, Pain Management Activity Restrictions/Additional Instructions: Thank you for choosing [facility] for your healthcare needs today. Please realize this is an emergency room and that we are providing you with a medical screening exam and this may not be complete and all inclusive of all the testing and or work up that you may need to determine your ailment or severity of your illness. It is very important that you follow up as instructed or that you return to the Emergency Department should you have concerns or if your condition changes or worsens in any way. You are seen today for COVID-19 you are outside the window for treatments at this point your oxygenation's are normal on room air and your chest x-ray is normal supportive cares recommend that you stop the Levaquin as below. By. Increase fluid intake. Avoid contact with others until your symptoms have begun to diminish for at least 24 hours and rolled. Coding Level of Care Code ED [employer]
[2023-05-28 10:35] VITALS: BP 137/86; PULSE 88; RESP 16; TEMP 36.8; O2SAT 98
[2023-05-28 10:48] VITALS: O2SAT 96
[2023-05-28 11:03] VITALS: BP 137/82; PULSE 88; RESP 18; TEMP 36.6; O2SAT 96
== END 2023-05-28 11:04 | disposition home or self-care (01) ==
PROVIDERS: Emergency Provider Family Medicine; PCP Family Medicine
DX: U07.1 COVID-19 (principal); I25.10 Atherosclerotic heart disease of native coronary artery without angina pectoris; I10 Essential (primary) hypertension; J44.9 Chronic obstructive pulmonary disease, unspecified; Z79.02 Long term (current) use of antithrombotics/antiplatelets; Z79.82 Long term (current) use of aspirin; F17.210 Nicotine dependence, cigarettes, uncomplicated; E78.2 Mixed hyperlipidemia
CPT/HCPCS: 71045; 99283

== ENCOUNTER 2023-07-18 07:32 | Emergency (ER) | payer MEDICAID, SELFPAY ==
[2023-07-18 07:37] VITALS: BP 126/71; PULSE 84; RESP 16; TEMP 36.3; O2SAT 100; BMI 28.2
--- NOTE | 2023-07-18 07:58 | W.ED.BACK ---
HPI - Back Pain/Injury General: Chief Complaint: Back Pain/Injury Stated Complaint: back pains Time Seen by Provider: 07/18/23 07:43 Source: patient Mode of arrival: ambulatory History of Present Illness: 52-year-old male presents emergency room with complaint of left-sided lower back pain radiating down his left leg. No precipitating injury he woke this morning with significant pain. He was unable to get himself up out of bed or dress himself. He is able to ambulate with the assistance of a cane. He has chronic back pain and this seems to have been exacerbated and of it this morning. Does not recall anything he did that seem to precipitate it. He denies any hematochezia melena hematemesis cough cramps no diarrhea no fecal incontinence no hematuria dysuria urgency or frequency no urinary retention. MD elicited complaint: back pain Pertinent past history: prior back pain Onset (ago): hour(s) Timing: constant Severity: moderate Similar Symptoms Previously: Yes Quality: sharp Location: left lower back Radiation: left upper leg Exacerbating factors: movement, sitting upright and walking Relieving factors: supine Associated symptoms: Deny no associated symptoms, abdominal pain, arthralgias, chills, change in bowel habits, difficulty walking, dysuria, fatigue, fecal incontinence, fever(s), hematuria, myalgias, nausea, numbness, syncope, tingling/numbness/burning, urinary frequency, urinary urgency, vomiting, weakness or other Review of Systems Const: Denies: fever(s), chills or fatigue Card: Denies: syncope Resp: Denies: dyspnea GI: Denies: abdominal pain, nausea, vomiting, fecal incontinence or change in bowel habits : Denies: dysuria, urinary urgency or hematuria Musc: Reports: back pain and extremity pain; Denies: neck pain Skin/Breast: Denies: rash Neuro: Denies: difficulty walking PFSH ED PFSH: Medical History Alpha galactosidase deficiency Atherosclerosis of coronary artery C. difficile colitis Chronic pancreatitis COPD (chronic obstructive pulmonary disease) Diverticulosis Essential (primary) hypertension GERD (gastroesophageal reflux disease) Heart attack Medical marijuana use Mixed hyperlipidemia Osteoarthritis rt knee, cervical and Lumbar spine Seizure disorder Urethral stricture Surgical History H/O chest tube placement H/O left knee surgery H/O neck surgery H/O removal of testicle H/O right knee surgery History of appendectomy History of cholecystectomy Hx of reconstruction of anterior cruciate ligament tear Status post right knee replacement Status post right knee replacement Stented coronary artery Family History Brother Parkinson disease Cancer Diabetes Stroke Family/Other Cancer Chronic kidney disease (CKD) Suicide Grandmother CAD (coronary artery disease) Cancer Lung disease Grandfather Dementia Mother Lung disease Father Suicide Denies family history of Clotting disorder Anesthesia complication Bleeding disorder Social History Smoking and tobacco/nicotine status: current every day tobacco/nicotine user cigarettes [ Other cigarette details: Had quit but today picked up again] Quit status (tobacco/nicotine): has tried quititng Alcohol intake: never Substance/Drug Use: current Substance/Drug use frequency: daily Other substance/drug use details: medical card Lives independently: Yes Household members: significant other Current occupational status: disabled Do you think of yourself as: Straight/Heterosexual Current gender identity: Male Physical Exam Const: GENERAL APPEARANCE: cooperative and comfortable ORIENTATION/CONSCIOUSNESS: Yes awake, Yes oriented to person, Yes oriented to place and Yes oriented to time HENMT: COMMON NORMALS: normocephalic, atraumatic and hearing grossly normal bilaterally HEAD & SCALP: normocephalic and atraumatic Resp: COMMON NORMALS: normal respiratory effort, No retractions, No use of accessory muscles and clear to auscultation bilaterally AUSCULTATION: clear to auscultation bilaterally Cardio: COMMON NORMALS: regular rate, regular rhythm and No murmurs present (Cardio) RATE: regular rate RHYTHM: regular rhythm GI: COMMON NORMALS: Soft to palpation and No hepatosplenomegaly present AUSCULTATION: Yes normoactive bowel sounds PALPATION: Yes Soft to palpation, No Tenderness to palpation present (GI), No Guarding due to palpation present (GI) and Yes No hepatosplenomegaly present : COMMON NORMALS: Yes no CVA tenderness BLADDER/KIDNEY EXAM: Yes no CVA tenderness Back/Pelvis: COMMON NORMALS: no CVA tenderness Extremity: COMMON NORMALS: normal to inspection, capillary refill normal, no clubbing, cyanosis or edema, no calf tenderness and no pedal edema OTHER: Sensation lower extremities normal dorsi and plantarflex strength 5 of 5 bilateral lower extremities Neuro: SENSORIUM/ORIENTATION: Yes oriented to person, Yes oriented to place and Yes oriented to time OTHER: Straight leg raising is negative Skin: COMMON NORMALS: no rashes or lesions noted GENERAL SKIN EXAM: no rashes or lesions noted Course Vital Signs: Vital signs: Vital Signs Temperature 97.4 F L 07/18/23 07:37 Pulse Rate 94 07/18/23 08:02 Respiratory Rate 17 07/18/23 08:02 Blood Pressure 98/71 07/18/23 08:02 Pulse Oximetry 99 07/18/23 08:02 Oxygen Delivery Me thod Room Air 07/18/23 08:02 MDM - Back Pain/Injury Medical Decision Making Patient has acute exacerbation of chronic back pain appears to be more musculoskeletal there is no precipitating event or trauma. No red flag symptoms at this time. When he went to dismiss the patient he talked about having been referred to several different pain clinics in the region including about home and mostly a [facility] he has been to the pain clinic here in town but evidently there were some issues and is not able to go there anymore. He was able to raise his leg and move it around forming while in the exam room stating it causes discomfort. At this point we will discharge him home with a steroid taper diclofenac encouraged to take with food also wrote him a prescription for tizanidine he says he has several different muscle relaxers at home he can use. Follow-up with his primary care doctor. Medical Records I reviewed the patient's medical records. Labs I reviewed the patient's lab results. No radiology studies performed this visit Discharge Plan Discharge Patient Disposition: Home Clinical Impression: Lumbar radiculopathy Condition: Stable Prescriptions: New tizanidine 4 mg tablet 4 mg PO Q6H PRN (Reason: muscle spasticity) Qty: 20 0RF Rx Instructions: do not exceed 3 doses per 24 hrs prednisone 20 mg tablet 20 mg PO TID Qty: 15 0RF Rx Instructions: 1 p.o. 3 times daily x3 days, 1 p.o. twice daily x2 days, 1 p.o. daily x2 days diclofenac sodium 75 mg tablet,delayed release (DR/EC) 75 mg PO Q12H PRN (Reason: pain) Qty: 20 0RF No Action zonisamide 100 mg capsule 200 mg PO BID tamsulosin 0.4 mg capsule 0.4 mg PO QAM albuterol sulfate [ProAir HFA] 90 mcg/actuation HFA aerosol inhaler 2 puff INHALATION Q4H PRN (Reason: Shortness Of Breath) buspirone 30 mg tablet 30 mg PO QAM albuterol sulfate 2.5 mg /3 mL (0.083 %) solution for nebulization 2.5 mg inhalation BID clopidogrel 75 mg tablet 75 mg PO DAILY Qty: 90 3RF Adult Aspirin Regimen 81 mg tablet,delayed release (DR/EC) 81 mg PO QAM Qty: 90 3RF pantoprazole 40 mg tablet,delayed release (DR/EC) 40 mg PO BIDWM Qty: 60 0RF quetiapine 50 mg tablet 50 mg PO BEDTIME clonazepam 2 mg tablet 2 mg PO BID PRN (Reason: Anxiety) nitroglycerin [Nitrostat] 0.4 mg Tablet, Sublingual 0.4 mg SUBLINGUAL Q5M PRN (Reason: Chest Pain) Rx Instructions: do not exceed 3 doses per episode ipratropium-albuterol 0.5 mg-3 mg(2.5 mg base)/3 mL solution for nebulization 3 ml INHALATION Q6H PRN (Reason: Shortness Of Breath) sucralfate 1 gram tablet 1 g PO TID nicotine 21 mg/24 hr patch 24 hour 1 patch topical DAILY budesonide 0.5 mg/2 mL suspension for nebulization 0.5 mg inhalation BID PRN (Reason: copd) fluticasone propion-salmeterol [Advair Diskus] 100-50 mcg/dose blister with device 1 inh INHALATION BID atorvastatin 80 mg tablet 80 mg PO QAM Discharge Orders: Discharge ED (Routine); Ordered 07/18/23 Ordered By: Torito Mendosa Referrals: Davy Blanton [Primary Care Provider] - Discharge Diet: Usual diet Discharge Activity: Increase activity as tolerated Patient Instructions: Opioid Safety, Pain Management Activity Restrictions/Additional Instructions: Thank you for choosing [facility] for your healthcare needs today. Please realize this is an emergency room and that we are providing you with a medical screening exam and this may not be complete and all inclusive of all the testing and or work up that you may need to determine your ailment or severity of your illness. It is very important that you follow up as instructed or that you return to the Emergency Department should you have concerns or if your condition changes or worsens in any way. Follow-up with your primary care doctor for further evaluation of your chronic back pain. You can use the medications prescribed today for the acute exacerbation begin to experience. Coding Level of Care Code ED [employer]
[2023-07-18] MEDS: dexamethasone 10 mg/mL INJ IM (07:59)
[2023-07-18] MEDS: orphenadrine 30 mg/mL Inj 2 mL 60 MG IM (07:59)
[2023-07-18 08:02] VITALS: BP 98/71; PULSE 94; RESP 17; O2SAT 99
--- NOTE | 2023-07-18 08:45 | PC.NURSE ---
Checked with patient regarding the 2 injections I gave him and asked if they helped with his pain. Patient stated they didn't do anything for me, my pain is a 9 .
[2023-07-18] MEDS: HYDROcodone-acetaminophen 5-325 mg Tablet 1 TAB PO (09:01)
== END 2023-07-18 09:59 | disposition home or self-care (01) ==
PROVIDERS: Emergency Provider Family Medicine; PCP Family Medicine
DX: M54.16 Radiculopathy, lumbar region (principal); Z79.02 Long term (current) use of antithrombotics/antiplatelets; Z79.82 Long term (current) use of aspirin; F17.210 Nicotine dependence, cigarettes, uncomplicated; I25.10 Atherosclerotic heart disease of native coronary artery without angina pectoris; J44.9 Chronic obstructive pulmonary disease, unspecified; I10 Essential (primary) hypertension; E78.2 Mixed hyperlipidemia
CPT/HCPCS: 96372; 99284; J1100; J2360

== ENCOUNTER → 2023-08-08 11:19 | Outpatient (BNVA) | payer MEDICAID, SELFPAY | PROVIDERS: PCP Family Medicine; Visit Provider Internal Medicine Cardiovascular Disease | DX: R06.02 Shortness of breath (principal); N18.9 Chronic kidney disease, unspecified; Z79.01 Long term (current) use of anticoagulants | CPT/HCPCS: 36415; 80048; 83880; 84443; 85025; 99214 ==

== ENCOUNTER → 2023-08-09 12:44 | Outpatient (BNVA) | payer MEDICAID, SELFPAY | PROVIDERS: PCP Family Medicine; Visit Provider Internal Medicine Cardiovascular Disease | DX: R55 Syncope and collapse (principal); I49.1 Atrial premature depolarization; I49.3 Ventricular premature depolarization | CPT/HCPCS: 93270 ==

== ENCOUNTER → 2023-10-18 15:24 | Outpatient (BNVA) | payer MEDICAID, SELFPAY | PROVIDERS: PCP Family Medicine; Visit Provider Orthopaedic Surgery | DX: M54.9 Dorsalgia, unspecified (principal); M54.50 Low back pain, unspecified; G89.29 Other chronic pain | CPT/HCPCS: 72110; 99214 ==

== ENCOUNTER → 2023-11-05 16:04 | Outpatient (BNVA) | payer MEDICAID, SELFPAY | PROVIDERS: PCP Family Medicine; Visit Provider Specialist | DX: M25.561 Pain in right knee (principal); G89.29 Other chronic pain; Z96.651 Presence of right artificial knee joint | CPT/HCPCS: 73560; 73565; 99204 ==

== ENCOUNTER 2023-11-21 12:57 | Outpatient (CLI) | payer MEDICAID, SELFPAY ==
--- NOTE | 2023-11-21 13:00 | MR_ITS ---
WS: [id number] MRI LUMBAR SPINE WITH CONTRAST TECHNIQUE: Sagittal T1, T2 and STIR imaging. Axial T1 and T2 imaging. Post gadolinium imaging was obt ained. CLINICAL INFORMATION: lower back pain COMPARISON: MRI 05/18/22 FINDINGS: Mild lumbar curve. No acute compression. No high-grade central canal stenosis. L1-L2: Mild facet arthropathy. Spinal canal and foramen are patent. L2-L3: No significant disc bulging. Mild facet arthropathy. Spinal canal and foramen are patent. L3-L4: Mild annular bulging with slight narrowing of the subarticular recess bilaterally. Slight impi ngement traversing L4 nerve roots. Mild facet arthropathy. Mild bilateral foraminal narrowing. L4-L5: Mild disc bulging with tiny LEFT subarticular disc protrusion impinges the traversing LEFT L5 nerve root in the subarticular recess. Mild central canal stenosis. Small LEFT foraminal protrusion w ith mild LEFT foraminal narrowing. RIGHT foramen is patent. Mild facet arthropathy. L5-S1: Tiny shallow central protrusion. Slight contact traversing S1 nerve roots bilaterally. This ap pears slightly progressed compared to previous. Mild central canal stenosis. Foramen are patent. Mild facet arthropathy. No abnormal gadolinium enhancement. Visualized pelvic bony structures: Normal. Paravertebral soft tissues: Normal. Partially visualized bilateral renal cysts RIGHT greater than LEFT. IMPRESSION: 1. Tiny LEFT subarticular protrusion L4-5 impinges the traversing LEFT L5 nerve root in the subartic ular recess. This is progressed compared to previous. Mild central canal stenosis. Mild LEFT foramina l narrowing. 2. Shallow central disc protrusion L5-S1 with slight impingement traversing S1 nerve roots appears p rogressed compared to previous. Mild central canal stenosis. 3. Mild annular bulging L3-4 with narrowing of the subarticular recess bilaterally similar to previo us. Small RIGHT greater than LEFT foraminal protrusions at this level.
--- NOTE | 2023-11-21 13:07 | XR_ITS ---
WS: [id number] ABDOMEN 1 VIEW(S) HISTORY: MRI SCREEN, patient recently swallowed camera for GI transit. COMPARISON: None available. Marked fecal retention and constipation. Prior cholecystectomy. There is no metallic foreign body wit hin the GI tract. No suspicious calcifications or masses. No bone abnormality. IMPRESSION: No metallic foreign body within the GI tract.
[2023-11-21] MEDS: gadobenate dimeglumine 20 mL vial IV (13:54)
== END 2023-11-21 12:58 | disposition home or self-care (01) ==
LOC: RAD 12:57
PROVIDERS: PCP Family Medicine; Visit Provider Orthopaedic Surgery
DX: M51.27 Other intervertebral disc displacement, lumbosacral region (principal)
CPT/HCPCS: 72158; 74018; A9577

== ENCOUNTER → 2023-12-04 13:36 | Outpatient (BNVA) | payer MEDICAID, SELFPAY | PROVIDERS: PCP Family Medicine; Visit Provider Orthopaedic Surgery | DX: M54.9 Dorsalgia, unspecified (principal); Z09 Encounter for follow-up examination after completed treatment for conditions other than malignant neoplasm; M48.062 Spinal stenosis, lumbar region with neurogenic claudication | CPT/HCPCS: 36415; 80053; 85025; 99214 ==

== ENCOUNTER → 2023-12-11 10:00 | Outpatient (BNVA) | payer MEDICAID, SELFPAY | PROVIDERS: PCP Family Medicine; Visit Provider Family Medicine | DX: Z01.818 Encounter for other preprocedural examination (principal) | CPT/HCPCS: 81003; 93005 ==

== ENCOUNTER 2023-12-14 04:47 | Emergency (ER) | payer MEDICAID, SELFPAY ==
[2023-12-14 04:51] VITALS: BP 136/94; PULSE 90; RESP 18; TEMP 36.4; O2SAT 100; BMI 30.7
--- NOTE | 2023-12-14 04:59 | W.ED.BACK ---
HPI - Back Pain/Injury General: Chief Complaint: Back Pain/Injury Stated Complaint: Back Pain Time Seen by Provider: 12/14/23 04:55 Source: patient Mode of arrival: ambulatory Limitations: no limitations History of Present Illness: 52-year-old male who has a history of chronic back pain states he is scheduled back surgery with Dr. Da Silva on January 06 states that the last 2 days he has been having increased pain he has been out of his medicine any typically takes for his back pain. He rates his pain an 8 out of 10 he denies any bowel or bladder incontinence he is able to ambulate states he has some pain with ambulation Associated symptoms: Deny abdominal pain, chills, fever(s), nausea or vomiting Review of Systems Const: Denies: fever(s), chills, body aches or change in appetite ENMT: Denies: throat pain or dental pain Card: Denies: chest pain Resp: Denies: dyspnea GI: Denies: abdominal pain, nausea, vomiting or diarrhea Musc: Reports: back pain; Denies: neck pain Skin/Breast: Denies: rash Neuro: Denies: headache(s) PFSH ED PFSH: Medical History Alpha galactosidase deficiency C. difficile colitis Atherosclerosis of coronary artery Medical marijuana use Diverticulosis GERD (gastroesophageal reflux disease) Chronic pancreatitis Urethral stricture COPD (chronic obstructive pulmonary disease) Essential (primary) hypertension Seizure disorder Mixed hyperlipidemia Osteoarthritis rt knee, cervical and Lumbar spine Heart attack Surgical History Status post right knee replacement Status post right knee replacement Hx of reconstruction of anterior cruciate ligament tear H/O neck surgery H/O left knee surgery History of appendectomy History of cholecystectomy H/O right knee surgery H/O chest tube placement H/O removal of testicle Stented coronary artery Family History Brother Parkinson disease Cancer Diabetes Stroke Family/Other Cancer Chronic kidney disease (CKD) Suicide Grandmother CAD (coronary artery disease) Cancer Lung disease Grandfather Dementia Mother Lung disease Father Suicide Denies family history of Clotting disorder Anesthesia complication Bleeding disorder Social History Smoking and tobacco/nicotine status: current every day tobacco/nicotine user cigarettes [ Other cigarette details: Had quit but today picked up again] Quit status (tobacco/nicotine): has tried quititng Alcohol intake: never Substance/Drug Use: current Substance/Drug use frequency: daily Other substance/drug use details: medical card Lives independently: Yes Household members: significant other Current occupational status: disabled Do you think of yourself as: Straight/Heterosexual Current gender identity: Male Physical Exam Const: COMMON NORMALS: no acute distress, patient oriented x3 and healthy appearing HENMT: COMMON NORMALS: normocephalic and atraumatic HEAD & SCALP: normocephalic and atraumatic Neck/C-Spine: COMMON NORMALS: full ROM and supple Chest: COMMONS NORMALS: normal inspection of the chest Resp: COMMON NORMALS: normal respiratory effort Back/Pelvis: OTHER: Paraspinal tenderness noted no midline tenderness no saddle anesthesia Extremity: COMMON NORMALS: normal to inspection and full ROM Neuro: COMMON NORMALS: patient oriented x3, moves all extremities and no focal motor deficits Psych: COMMON NORMALS: mental status grossly normal, Normal thought process present and cooperative THOUGHT PROCESS: Normal thought process present Skin: COMMON NORMALS: no rashes or lesions noted and no wounds GENERAL SKIN EXAM: no rashes or lesions noted Course Vital Signs: Vital signs: Vital Signs Temperature 97.6 F 12/14/23 04:51 Pulse Rate 90 12/14/23 04:51 Respiratory Rate 18 12/14/23 04:51 Blood Pressure 136/94 12/14/23 04:51 Pulse Oximetry 100 12/14/23 04:51 Oxygen Delivery Me thod Room Air 12/14/23 04:51 MDM - Back Pain/Injury Medical Decision Making Patient presents with back pain acute on chronic he has no signs of epidural abscess or cord compression he is stable for discharge we will prescribe him pain meds almost relaxant he is to follow-up with back surgeon return if worsening Medical Records I reviewed the patient's medical records. No radiology studies performed this visit Discharge Plan Discharge Patient Disposition: Home Clinical Impression: Back pain Condition: Stable Prescriptions: New hydrocodone-acetaminophen 5-325 mg tablet 1 tab PO Q6H PRN (Reason: pain) Qty: 10 0RF methocarbamol 750 mg tablet 750 mg PO Q6H PRN (Reason: spasms) Qty: 20 0RF No Action zonisamide 100 mg capsule 200 mg PO BID tamsulosin 0.4 mg capsule 0.4 mg PO QAM albuterol sulfate [ProAir HFA] 90 mcg/actuation HFA aerosol inhaler 2 puff INHALATION Q4H PRN (Reason: Shortness Of Breath) buspirone 30 mg tablet 30 mg PO QAM albuterol sulfate 2.5 mg /3 mL (0.083 %) solution for nebulization 2.5 mg inhalation BID atorvastatin 80 mg tablet 80 mg PO QAM Qty: 90 3RF aspirin 81 mg tablet,delayed release (DR/EC) See Rx Instructions .ROUTE .COMPLEX Qty: 90 3RF Dose Instruction: TAKE 1 TABLET BY MOUTH EVERY MORNING Rx Instructions: TAKE 1 TABLET BY MOUTH EVERY MORNING clopidogrel 75 mg tablet See Rx Instructions .ROUTE .COMPLEX Qty: 90 3RF Dose Instruction: TAKE ONE TABLET BY MOUTH DAILY Rx Instructions: TAKE ONE TABLET BY MOUTH DAILY magnesium L-lactate 84 mg tablet extended release See Rx Instructions .ROUTE .COMPLEX Qty: 30 0RF Dose Instruction: TAKE 1 TABLET BY MOUTH EVERY DAY Rx Instructions: TAKE 1 TABLET BY MOUTH EVERY DAY nicotine 21 mg/24 hr patch 24 hour See Rx Instructions .ROUTE .COMPLEX Qty: 42 0RF Dose Instruction: apply and CHANGE ONE PATCH EVERY DAY FOR SIX weeks Rx Instructions: apply and CHANGE ONE PATCH EVERY DAY FOR SIX weeks pantoprazole 40 mg tablet,delayed release (DR/EC) 40 mg PO BIDWM Qty: 60 0RF quetiapine 50 mg tablet 50 mg PO BEDTIME clonazepam 2 mg tablet 2 mg PO BID PRN (Reason: Anxiety) nitroglycerin [Nitrostat] 0.4 mg Tablet, Sublingual 0.4 mg SUBLINGUAL Q5M PRN (Reason: Chest Pain) Rx Instructions: do not exceed 3 doses per episode ipratropium-albuterol 0.5 mg-3 mg(2.5 mg base)/3 mL solution for nebulization 3 ml INHALATION Q6H PRN (Reason: Shortness Of Breath) budesonide 0.5 mg/2 mL suspension for nebulization 0.5 mg inhalation BID PRN (Reason: copd) fluticasone propion-salmeterol [Advair Diskus] 100-50 mcg/dose blister with device 1 inh INHALATION BID Discharge Orders: Discharge ED (Routine); Ordered 12/14/23 Ordered By: Mercedes Gaines Referrals: Davy Blanton [Primary Care Provider] - Discharge Diet: Advance as tolerated Discharge Activity: Resume usual activity Patient Instructions: Back Pain (ED), Opioid Safety Coding Level of Care Code ED [employer]
[2023-12-14] MEDS: dexamethasone 10 mg/mL INJ IM (05:04)
[2023-12-14] MEDS: methocarbamol 750 mg Tablet 1500 MG PO (05:04)
[2023-12-14] MEDS: HYDROcodone-acetaminophen 7.5-325 mg Tablet 1 TAB PO (05:04)
[2023-12-14 05:07] VITALS: BP 106/68; PULSE 90; RESP 18; O2SAT 98
== END 2023-12-14 05:33 | disposition home or self-care (01) ==
PROVIDERS: Emergency Provider Emergency Medicine; PCP Family Medicine
DX: M54.9 Dorsalgia, unspecified (principal); Z79.02 Long term (current) use of antithrombotics/antiplatelets; Z79.82 Long term (current) use of aspirin; F17.210 Nicotine dependence, cigarettes, uncomplicated; I25.10 Atherosclerotic heart disease of native coronary artery without angina pectoris; J44.9 Chronic obstructive pulmonary disease, unspecified; I10 Essential (primary) hypertension; E78.2 Mixed hyperlipidemia
CPT/HCPCS: 96372; 99284; J1100

== ENCOUNTER → 2023-12-20 15:28 | Outpatient (BNVA) | payer MEDICAID, SELFPAY | PROVIDERS: PCP Family Medicine; Visit Provider Orthopaedic Surgery | DX: M54.9 Dorsalgia, unspecified (principal) | CPT/HCPCS: 72072; 99213 ==

== ENCOUNTER 2024-01-07 11:06 | Inpatient (IN) | payer MEDICAID, SELFPAY ==
[2024-01-07] VITALS (23 sets, daily range): BP systolic 92–127; BP diastolic 54–76; PULSE 64–93; RESP 12–20; TEMP 36.3–36.8; O2SAT 90–98; BMI 29.0
[2024-01-07] MEDS: methadone 10 mg Tablet PO (06:36)
[2024-01-07] MEDS: sodium chloride 0.9% 1,000 ML 30 ML IV (06:37)
--- NOTE | 2024-01-07 06:38 | W.PM.OPSUD ---
Surgery/Procedure H&P Update DATE OF PROCEDURE: January 07, 2024 DATE H&P PERFORMED: 12/11/23 H&P UPDATE INFORMATION: I have reviewed H&P completed within last 30 days, I have examined patient prior to procedure and No changes to prior documentation PREOP DIAGNOSIS: Lumbar stenosis with neurogenic claudication PLANNED PROCEDURE: Operation Date: 01/07/24 07:00 Proposed Procedures p L4-5, L5-S1 Spinal Fusion(Not Applicable) - DO terell Pierson Posterior Lumbar Interbody Fusion PLIF(Not Applicable) - DO terell Pierson Lumbar Spine Decompression Lumbar Decompression(Not Applicable) - Alexander Da Silva DO
[2024-01-07] MEDS: ceFAZolin 2,000 MG in sodium chloride 0.9% (plus) 50 ML 100 MG IV ×2 (07:02→16:43)
[2024-01-07] MEDS: lidocaine-epi 1% 20 mL INJ INJECTION (07:47)
[2024-01-07] MEDS: vancomycin 1,000 MG SDV 1000 MG XX (07:48)
--- NOTE | 2024-01-07 07:48 | ANES.PREANE2 ---
Pre-Anesthetic Assessment Height/Weight: Height 1.68 m Weight 81.647 kg Temp Pulse Resp BP Pulse Ox O2 Del Method 98.2 F 64 18 97/58 96 Room Air 01/07/24 06:14 01/07/24 06:14 01/07/24 06:14 01/07/24 06:14 01/07/24 06:14 01/07/24 06:21 Preop Diagnosis: Lumbar stenosis with neurogenic claudication Operation Date: 01/07/24 07:00 Proposed Procedures p L4-5, L5-S1 Spinal Fusion(Not Applicable) - DO terell Pierson Posterior Lumbar Interbody Fusion PLIF(Not Applicable) - DO terell Pierson Lumbar Spine Decompression Lumbar Decompression(Not Applicable) - Alexander Da Silva DO Familial anesthetic complications: Alpha-GAL Was Beta Enriqueta taken within 24 hours: N/A Was Clonidine taken within 24 hours: N/A Last intake: Intake Last Liquid Date 01/06/24 Last Liquid Time 19:30 Last Solid Date 12/30/23 Last Solid Time 16:00 Social Tobacco and No alcohol Exam alert, oriented x 3 and regular rate & rhythm rhonchi Airway Submandibular: within normal limits Cervical ROM: within normal limits Mallampati: Class II Dentition: chipped (lower arch poor dentition) and false (upper edentulous) Pulmonary Chronic Obstructive Pulmonary Disease CV/HEM Coronary Artery Disease, Hypertension, Myocardial Infarction and Peripheral Vascular Disease GI Gastroesophageal Reflux Disease Metabolic Hyperlipidemia Musc/skel Lower Back Pain and Osteoarthritis/DJD Neuropsych Seizure Anesthetic Plan ASA status: 3 Anesthesia: General Other: A.line, discussed transfusion Medications/Allergies Home Medications Medication Instructions Recorded Confirmed Last Taken Type albuterol sulfate 90 mcg/actuation 2 puff inhalation Q4H PRN 08/22/19 01/07/24 01/07/24 History aerosol inhaler (ProAir HFA) Shortness Of Breath tamsulosin 0.4 mg capsule 0.4 mg PO QAM 08/22/19 01/04/24 01/06/24 History zonisamide 100 mg capsule 200 mg PO BID 08/22/19 01/04/24 01/06/24 History pantoprazole 40 mg tablet,delayed 40 mg PO BIDWM #60 tabs 03/01/21 01/04/24 01/06/24 Rx release quetiapine 50 mg tablet 50 mg PO BEDTIME 03/30/21 01/04/24 01/06/24 History buspirone 30 mg tablet 30 mg PO QAM 01/05/22 01/04/24 01/06/24 History clonazepam 2 mg tablet 2 mg PO BID PRN Anxiety 05/05/22 01/04/24 01/07/24 History nitroglycerin 0.4 mg sublingual 0.4 mg sublingual Q5M PRN Chest 05/05/22 01/04/24 Unknown History tablet (Nitrostat) Pain albuterol sulfate 2.5 mg/3 mL 2.5 mg inhalation BID 03/14/23 01/07/24 01/07/24 History (0.083 %) solution for nebulization budesonide 0.5 mg/2 mL suspension 0.5 mg inhalation BID PRN copd 05/28/23 01/04/24 01/04/24 History for nebulization fluticasone 100 mcg-salmeterol 50 1 inh inhalation BID 05/28/23 01/04/24 01/07/24 History mcg/dose blistr powdr for inhalation (Advair Diskus) ipratropium 0.5 mg-albuterol 3 mg 3 ml inhalation Q6H PRN Shortness 05/28/23 01/04/24 Unknown History (2.5 mg base)/3 mL nebulization Of Breath soln atorvastatin 80 mg tablet 80 mg PO QAM #90 tabs 10/02/23 01/04/24 01/06/24 Rx nicotine 21 mg/24 hr daily See Rx Instructions .Route 12/05/23 01/04/24 01/04/24 Rx transdermal patch .COMPLEX #42 patches methocarbamol 750 mg tablet 750 mg PO Q6H PRN spasms #20 tabs 12/14/23 01/04/24 01/05/24 Rx hydrocodone 5 mg-acetaminophen 325 1 tab PO Q6H PRN pain 21 days #44 12/20/23 01/04/24 01/06/24 Rx mg tablet tabs Bone Growth Stimulator #1 ea 01/04/24 Unknown Rx aspirin 81 mg tablet,delayed 81 mg PO DAILY 01/04/24 01/04/24 01/01/24 History release clopidogrel 75 mg tablet 75 mg PO DAILY 01/04/24 01/04/24 01/01/24 History magnesium L-lactate 84 mg 84 mg PO DAILY 01/04/24 01/04/24 01/03/24 History tablet,extended release Allergies Allergy/AdvReac Type Severity Reaction Status Date / Time meperidine [From Demerol] Allergy Severe ALGY-Hives Verified 12/11/23 09:50 Alpha-Gal Allergy upset GI Verified 12/11/23 09:50 (Mxidcnrnm-Kygbe-5,3-Gala [Bzmyapwum-Oshyy-0,3-Galactose (Alph] gabapentin AdvReac Severe ADR-Seizure Verified 12/11/23 09:50 morphine AdvReac Severe ALGY-Hives Verified 12/11/23 09:50 tramadol AdvReac Severe ADR-Seizure Verified 12/11/23 09:50 Current Medications Generic Name Dose Route Start Last Admin Trade Name Freq PRN Reason Stop Dose Admin Sodium Chloride 1,000 mls @ 30 mls/hr 01/07/24 06:00 01/07/24 06:37 Sodium Chloride 0.9% IV 01/08/24 05:59 30 mls/hr .Q24H LUKE Administration PFSH Anesthesia Medical History Alpha galactosidase deficiency C. difficile colitis Atherosclerosis of coronary artery Medical marijuana use Diverticulosis GERD (gastroesophageal reflux disease) Chronic pancreatitis Urethral stricture COPD (chronic obstructive pulmonary disease) Essential (primary) hypertension Seizure disorder Mixed hyperlipidemia Osteoarthritis rt knee, cervical and Lumbar spine Heart attack Surgical History Status post right knee replacement Status post right knee replacement Hx of reconstruction of anterior cruciate ligament tear H/O neck surgery H/O left knee surgery History of appendectomy History of cholecystectomy H/O right knee surgery H/O chest tube placement H/O removal of testicle Stented coronary artery Family History Brother Parkinson disease Cancer Diabetes Stroke Family/Other Cancer Chronic kidney disease (CKD) Suicide Grandmother CAD (coronary artery disease) Cancer Lung disease Grandfather Dementia Mother Lung disease Father Suicide Denies family history of Clotting disorder Anesthesia complication Bleeding disorder Social History Smoking and tobacco/nicotine status: current every day tobacco/nicotine user cigarettes [ Other cigarette details: Had quit but today picked up again] Quit status (tobacco/nicotine): has tried quititng Alcohol intake: never Substance/Drug Use: current Substance/Drug use frequency: daily Other substance/drug use details: medical card Lives independently: Yes Household members: significant other Current occupational status: disabled Do you think of yourself as: Straight/Heterosexual Current gender identity: Male Data Anesthesia Cardiac Studies: Echocardiogram 08/15/21 Echocardiogram Limited Views 08/07/22 Cardiac Event Monitor 08/09/23
--- NOTE | 2024-01-07 10:24 | P.OP_ITS ---
Operative Report Date of procedure: January 07, 2024 Pre-op diagnosis: Lumbar stenosis with neurogenic claudication Post-op diagnosis: same Procedure done: 1. L5/S1 Interbody fusion wposterolateral fusion 2. L4/5 Interbody fusion with posterolateral fusion 3. Instrumentation L4-S1 4. Cage at L4/5 5. Cage L5/S1 6. use of autograft from same incision 7. allograft 8. Bone marrow aspirate from right iliac crest 9. Use of computer navigation / stereotactic for spine Surgeon: Alexander Da Silva DO Estimated blood loss (mL): 650 Procedure: 1. L5/S1 Interbody fusion wposterolateral fusion 2. L4/5 Interbody fusion with posterolateral fusion 3. Instrumentation L4-S1 4. Cage at L4/5 5. Cage L5/S1 6. use of autograft from same incision 7. allograft 8. Bone marrow aspirate from right iliac crest 9. Use of computer navigation / stereotactic for spine Patient is brought to the operative suite. After undergoing anesthesia, the patient had neuro monitoring attached. Patient was then placed in the prone position on the Carl table. All areas of impingement were well-padded. Patient was then prepped and draped in the normal sterile fashion. Skin incision was then made from L4-S1. Subperiosteal dissection was made out to the transverse processes of L4 bilaterally, L5 bilaterally and S1 ala bilaterally. Attention was then brought to the [email or web address] bone marrow aspirate kit was used to aspirate bone marrow aspirate. This was done by using the sharp probe to open up the bone. Aspiration was performed and then the blunt probe was then used to dissect down to through the bone tunnel. An aspirating well drawn back a millimeter approximately 20 cc of bone marrow aspirate was used. Admixed with the allograft and autograft bone that will be used. Patient is brought to present to pins in the right iliac crest. These pins were removed at the end the case. This is where the fiducial was attached with computer navigation. The computer navigation was attached and the serial kari and spun on the patient information from the C-arm was then loaded the computer for the use of computer navigation for pedicle screws. The technique for placing the pedicle screws was to use a drill followed by the gearshift probe linked to computer navigation. Followed by the ball probe to feel the superior inferior medial lateral jacobson of the pedicles. Then placement of the screws using computer navigation. Was done at each pedicle. Screws were placed at L4 bilaterally, L5 bilaterally and S1 bilaterally. Next attention was brought to performing the laminectomy ofL5. This was done using the high-speed bur Kerrisons and curettes. Once the lamina was removed and then attention was brought to performing a partial facetectomy on the contralateral side. This was done again using the high-speed bur curettes and Kerrisons. The ligamentum flavum was taken down bilaterally from L5 to S1. Attention was then brought to the facet on the ipsilateral side. The facet was taken down. The S1 nerve was decompressed as it passed around the S1 pedicle. The laminectomy was done for purposes of decompressing the nerve as well as placement of the cage. The L5 nerve was identified as it traversed through the L5/S1 foramen. The thecal sac was identified and retracted. The L5/S1 disc base was identified. Using a knife the disc base was opened. And then sequential alfonzo were placed. The first shaver was a 6 and the last shaver was a 11. Using a pituitary and down going curette the endplates were scraped and disc material was removed from the space. Once adequate decompression of the disc base was felt to be had. Osteoamp sponge was packed into the anterior aspect of the disc base. Then a size 12 cage from [employer] was placed after packing osteoamp into the cage. While placing the cage the thecal sac and S1 nerve was protected. C arm was used to ensure that the cages placed in the appropriate position. Next attention was brought to performing the laminectomy ofL4. This was done using the high-speed bur Kerrisons and curettes. Once the lamina was removed and then attention was brought to performing a partial facetectomy on the contralateral side. This was done again using the high-speed bur curettes and Kerrisons. The ligamentum flavum was taken down bilaterally from L4 to L5. Attention was then brought to the facet on the ipsilateral side. The facet was taken down. The L5 nerve was decompressed as it passed around the L5 pedicle. The laminectomy was done for purposes of decompressing the nerve as well as placement of the cage. The L4 nerve was identified as it traversed through the L4/5 foramen. The thecal sac was identified and retracted. The L4/5 disc base was identified. Using a knife the disc base was opened. And then sequential alfonzo were placed. The first shaver was a 6 and the last shaver was a 10. Using a pituitary and down going curette the endplates were scraped and disc material was removed from the space. Once adequate decompression of the disc base was felt to be had. Osteoamp sponge was packed into the anterior aspect of the disc base. Then a size 11 cage from [place] was placed after packing osteoamp into the cage. While placing the cage the thecal sac and L5 nerve was protected. C arm was used to ensure that the cages placed in the appropriate position. Attention was then brought to attaching the rods to the screws placed in the L 4 bilaterally, L5 bilaterally and S1 bilaterally. Caps were torqued into position. Locking the construct in place. Wound was copiously irrigated and then attention was brought to decorticating the facets and transverse processes laterally. Bone that was taken down from the lamina was used along with osteoamp fibers and sponges were packed into the lateral gutters along the facet joints. This was done bilaterally. Wound was then closed in a layered fashion starting with the thoracolumbar fascia. 0-vicryl was used the sub cutaneous tissue was closed with 2-0 vicryl and skin with 4-0 monocryl. Glue was then used to seal the skin and a steril dressing was applied. Patient was then placed in the supine position. The endotracheal tube was removed and patient was transferred to the PACU in stable condition.
[2024-01-07] MEDS: HYDROmorphone 1 mg/mL INJ 1 mL 0.5 MG IVP ×2 (10:41→13:13)
--- NOTE | 2024-01-07 11:00 | XR_ITS ---
WS: [id number] C-ARM RADIOGRAPHS LUMBAR SPINE; 3 IMAGES HISTORY: OR PICS COMPARISON: None available. Intraoperative imaging during the extensive lumbosacral fusion. Fusion appears to be from L4-S1. Inte rbody spacers at L4-5 and L5-S1. XR/XR lumbar spine 2-3V* [id number] IMPRESSION: Intraoperative imaging during posterior lumbar fusion.
[2024-01-07] MEDS: sodium chloride 0.9% 1,000 ML 100 ML IV (13:12)
--- NOTE | 2024-01-07 13:25 | PC.RESP ---
pt states he takes albuterol updraft bid @ home. pt does not wish to get the updrafts qid as ordered by pharmacy, instead requests txs to only be bid as per home regimen
--- NOTE | 2024-01-07 15:52 | ANE.PACU2 ---
Inpatient post-anesthesia follow up: Airway intact: Yes Vital signs: Temperature 97.5 F Pulse Rate 75 Respiratory Rate 18 Blood Pressure 107/70 Pulse Oximetry 96 Oxygen Delivery Me thod Room Air Oxygen Flow Rate 2 Fraction of Inspir ed Oxygen Hydration adequate: Yes Nausea and vomiting: No Pain level: 3 Mental status: Baseline
[2024-01-07] MEDS: BuSPIRONE 10 mg Tablet 30 MG PO ×2 (16:43→20:46)
[2024-01-07] MEDS: HYDROcodone-acetaminophen 10-325 mg Tablet PO ×2 (16:43→20:46)
[2024-01-07] MEDS: zonisamide 100 MG Capsule 200 MG PO (18:16)
[2024-01-07] MEDS: pantoprazole DR 40 mg Tablet PO (18:17)
[2024-01-07] MEDS: docusate sodium 100 mg Capsule PO (18:17)
[2024-01-07] MEDS: budesonide 0.5 mg/2 mL Neb INHALATION (20:01)
[2024-01-07] MEDS: albuterol 2.5 mg/3 mL Neb INHALATION (20:01)
[2024-01-07] MEDS: quetiapine 25 mg Tablet 50 MG PO (20:46)
[2024-01-07] MEDS: lactated ringers 1,000 ML 90 ML IV (20:47)
[2024-01-07] MEDS: CLONazepam 1 mg Tablet 2 MG PO (20:54)
[2024-01-07] MEDS: ketorolac 30 mg/mL INJ IVP (23:07)
[2024-01-08] MEDS: ceFAZolin 2,000 MG in sodium chloride 0.9% (plus) 50 ML 100 MG IV (00:29)
[2024-01-08] MEDS: HYDROcodone-acetaminophen 10-325 mg Tablet PO ×3 (00:29→09:14)
[2024-01-08 04:14] VITALS: BP 101/66; PULSE 71; RESP 17; TEMP 36.5; O2SAT 97
[2024-01-08] MEDS: atorvastatin 40 mg Tablet 80 MG PO (05:06)
[2024-01-08] MEDS: tamsulosin 0.4 mg Capsule 0.400000000000000022 MG PO (05:06)
[2024-01-08 07:49] VITALS: BP 91/58; PULSE 74; RESP 17; TEMP 36.3; O2SAT 96
--- NOTE | 2024-01-08 08:13 | P.DS_ITS ---
Discharge Providers Date of Admission: 01/07/24 11:06 Date of Discharge: January 08, 2024 Attending Provider at Admission: Alexander Da Silva DO Attending Provider at Discharge: Alexander Da Silva DO Primary Care Provider: Davy Blanton Reason for Visit Reason for Visit: M48.062 Physical Exam Narrative: Patient doing well stable bed pain controlled. Urinary Catheter Management: [place]: Cath Placed During This Visit: yes, but has since been removed by the nurse Reason for Continuing Indwelling Catheter: Decision to DC Catheter Urinary Catheter Date of Insertion: 01/07/24 Urinary Catheter Time of Insertion: 07:10 Date Urinary Catheter Removed: 01/08/24 Time Urinary Catheter Discontinued: 05:18 Discharge Data Studies Completed and Pending Completed Studies During Hospitalization Category Date Time Status XR lumbar spine 2-3V* [id number] Routine Exams 01/07/24 11:00 Completed Radiology Impressions Lumbar Spine X-Ray 01/07/24 11:00 IMPRESSION: Intraoperative imaging during posterior lumbar fusion. Laboratory Results Blood Type O Positive 01/07/24 07:10 Rho(D) Type Rh positive 01/07/24 07:10 Antibody Screen Negative 01/07/24 07:10 Vitals Last Vital Signs Temp 97.4 F L 01/08/24 07:49 Pulse 74 01/08/24 07:49 Resp 17 01/08/24 07:49 BP 91/58 01/08/24 07:49 Pulse Ox 96 01/08/24 07:49 O2 Del Method Room Air 01/08/24 07:49 O2 Flow Rate 2 01/07/24 13:10 Discharge Plan Discharge Patient Disposition: Home Condition: Stable Prescriptions: New hydrocodone-acetaminophen 10-325 mg tablet 1 tab PO Q4H PRN (Reason: pain) 7 Days Qty: 40 0RF Continued zonisamide 100 mg capsule 200 mg PO BID tamsulosin 0.4 mg capsule 0.4 mg PO QAM albuterol sulfate [ProAir HFA] 90 mcg/actuation HFA aerosol inhaler 2 puff INHALATION Q4H PRN (Reason: Shortness Of Breath) buspirone 30 mg tablet 30 mg PO QAM albuterol sulfate 2.5 mg /3 mL (0.083 %) solution for nebulization 2.5 mg inhalation BID atorvastatin 80 mg tablet 80 mg PO QAM Qty: 90 3RF nicotine 21 mg/24 hr patch 24 hour See Rx Instructions .ROUTE .COMPLEX Qty: 42 0RF Dose Instruction: apply and CHANGE ONE PATCH EVERY DAY FOR SIX weeks Rx Instructions: apply and CHANGE ONE PATCH EVERY DAY FOR SIX weeks (DME) Bone Growth Stimulator See Rx Instructions .Route .MEDSUPPLY Qty: 1 0RF Rx Instructions: As directed pantoprazole 40 mg tablet,delayed release (DR/EC) 40 mg PO BIDWM Qty: 60 0RF quetiapine 50 mg tablet 50 mg PO BEDTIME clonazepam 2 mg tablet 2 mg PO BID PRN (Reason: Anxiety) nitroglycerin [Nitrostat] 0.4 mg Tablet, Sublingual 0.4 mg SUBLINGUAL Q5M PRN (Reason: Chest Pain) Rx Instructions: do not exceed 3 doses per episode ipratropium-albuterol 0.5 mg-3 mg(2.5 mg base)/3 mL solution for nebulization 3 ml INHALATION Q6H PRN (Reason: Shortness Of Breath) budesonide 0.5 mg/2 mL suspension for nebulization 0.5 mg inhalation BID PRN (Reason: copd) fluticasone propion-salmeterol [Advair Diskus] 100-50 mcg/dose blister with device 1 inh INHALATION BID methocarbamol 750 mg tablet 750 mg PO Q6H PRN (Reason: spasms) Qty: 20 0RF aspirin 81 mg tablet,delayed release (DR/EC) 81 mg PO DAILY Rx Instructions: TAKE 1 TABLET BY MOUTH EVERY MORNING magnesium L-lactate 84 mg tablet extended release 84 mg PO DAILY Rx Instructions: TAKE 1 TABLET BY MOUTH EVERY DAY Held clopidogrel 75 mg tablet 75 mg PO DAILY Hold Instructions: Resume on 01/09/24. Rx Instructions: TAKE ONE TABLET BY MOUTH DAILY Discontinued hydrocodone-acetaminophen 5-325 mg tablet 1 tab PO Q6H PRN (Reason: pain) 21 Days Qty: 44 0RF Discharge Orders: Discharge Order (Routine); Ordered 01/08/24 Ordered By: Alexander Da Silva Referrals: Alexander Da Silva DO [Physician] - 01/22/24 2:45 pm Discharge Diet: Advance as tolerated Discharge Activity: Limit activity as instructed Patient Instructions: Opioid Safety Activity Restrictions/Additional Instructions: Thank you for [facility] for your care! The following is a list of instructions, from your provider, to follow upon your discharge to ensure you have the optimal recovery from your recent injury orsurgery. Follow-up care is a pina part of your treatment and safety. Be sure to make and go to all appointments, and call your doctor if you are having problems. If you do not already have a follow-up appointment made, call Dr. Da Silva office in the next 1-3 days to make follow up appointment for 1 weeks at [phone]. It is also a good idea to know your test results and keep a list of the medicines you take. Medications will be prescribed for you at your provider's discretion. These medications are to be used as instructed; if they are taken more often that prescribed they will not be refilled early and in most cases will not be refilled at all. > When a refill is needed,you should contact sherif milligan 2-3 business days before your prescription runs out. Medications will NOT be refilled by electrical continuity inspector providers after hours! > Many pain medications contain Tylenol (Acetaminophen). Do not consume more than 4,000 mg of Tylenol per day in total with any combination ofmedic ations. > Pain medications can cause constipation. Please use an over the counter stool softener as directed, while taking pain medications. Consulty our local pharmacist with questions or recommendations on stool softeners. If constipation persists, contact our office or your primary care provider. > While under our care,you are not to receive pain medications or other controlled substances from any other provider unless our office is notified and approves. Any attempts to do so will result in refusal to prescribe any further pain medications and possible dismissal from our practice. ? Your wound and/or dressing should remain clean and dry for 2 days after surgery. On postoperative day 2 (48 hours after your surgery) the dressing (if present) should be removed and it is okay to shower and get the incision wet. Pad dry afterwards. No further dressing should be required from that point on. Do not put any creams or ointments on theincision > It is normal for there to be a small amount of discharge (bloody or blood tinged) present from a surgical wound for the first 1-3days. > The wound should be examined twice a day for signs of infection. Mild redness or bruising is to be expected but indications that an infection maybe starting would include; An increase in redness, swelling, or discharge, a foul odor present around the incision, and/or a fever greater than 101 ?F ? Showering is permitted, however we ask that you do not take a bath, sit in a whirlpool / Jacuzzi, or go swimming for 1 month. For only the first 2 days after surgery, lt wilt be necessary for you to cover your wound/dressing with plastic and tape to keep it dry. ? Walking is essential for the healing process after surgery. We would like you to slowly advance your walking. This should be done on relatively flat clear ground (inside or out) or can be done on a treadmill. Remember this goal does not have to happen all at once, slowly increase your distance and duration. This can be broken into more more than one walk per day as tolerated. Patients who walk as directed after surgery rarely require Physical Therapy. In the unlikely event this issue arises your provider will direct hospital staff to make the appropriate arrangements. ? No lifting over 5 pounds {a gallon of milk) or bending/twisting until further notice. Each of these activities places an unnecessary amount of stress onto the body and can impede the delicate healing process. > Instead of bending at the waist, keep your back straight and bend at the knees. > Instead of twisting your torso, keep your back straight and turn your entire body with your feet. ? You may sleep in any position which makes you comfortable. Many patients find comfort sleeping in a reclining chair. It is not abnormal to have difficulty sleeping for the first several weeks following your surgery. We recommend trying Benadry! or Tylenol PM as directed to help with your sleeping difficulties. Both medications are over the counter and available withoutprescription. ? NO SMOKING!!! Smoking dramatically increases the probability of developing postoperative wound infections. ? Common complaints after lumbar and/or thoracic spine surgery include, but are not limited to: numbness and/or tingling in the legs, pain around the incision and surrounding tissues, muscle spasms, or stiffness of the middle to low back. Contact our office if these symptoms persist or if an acute change occurs. ? No driving for the first 3-5days, and not while taking narcotics until seen at your follow-up appointment and cleared. There are no restrictions for riding on short trips, however if you take a longer trip, arrangements should be made to make regular stops to get out of the vehicle and stretch . ? Swelling is an unfortunate event that will take place with any surgery and is the primary source of your postoperative discomfort. While walking and regular approved activities helps control inflammation, there are additional steps you can take to minimizeswelling. > Place ice over the surgical site and surrounding tissue for twenty minutes, followed by applying a low/medium heat (heating pad) for an additional twenty minutes every 1-2 hours as needed for painrelief. > You may use of over the counter anti-inflammatory medications (Ibuprofen, Motrin, Aleve, Advil, etc) as directed on the package label. These types of medicines wm significantly reduce the amount of discomfort you experience after surgery from swelling. It should be noted that if you have and allergy to any of these medications, or a history of ulcers or kidney disease you should consult you primary care provider prior to starting these medications. Discharge Attestations Time Spent in Discharge Care*: less than 30 min Status at Discharge: Cognitive status at discharge: cognitively intact , Behavioral status at discharge: cooperative , Quality Metrics Clinical Quality Measures [ No reported AMI, CVA or VTE this stay] Coding Level of Care Code Acute Code for Chg Fwd
[2024-01-08] MEDS: pantoprazole DR 40 mg Tablet PO (09:14)
[2024-01-08] MEDS: magnesium lactate 84 mg Tablet PO (09:14)
[2024-01-08] MEDS: docusate sodium 100 mg Capsule PO (09:15)
[2024-01-08] MEDS: BuSPIRONE 10 mg Tablet 30 MG PO (09:15)
[2024-01-08] MEDS: zonisamide 100 MG Capsule 200 MG PO (09:15)
[2024-01-08] MEDS: nicotine 21 mg Patch TRANSDERMA (09:19)
--- NOTE | 2024-01-08 09:49 | PC.CHAP ---
Pastoral Care Encounter/Spiritual Assessment Type of Contact [] Declined computer systems integrator visit [] Patient/Family/Request visit [] Outpatient visit [] Follow-up visit [] Physician referral [] Code/Alert [] Routine visit [] Staff referral [] Actively dying [] Patient sleeping [] Family support [] [] Out of room [] Palliative care [] [x] Receiving care in room [] Pre-surgical visit [] Trauma [] Long length of stay [] ICU visit [] Other: Relational/Emotional Strength [] Patient feels connected with others/family/visitors/staff [] Distress [] Loneliness/isolation [] Abandonment Spirituality of Patient [] Person of Bailey [] Attends Mu-Ism of their Bailey [] Believes in Prayer [] Reads Bible or Church materials [] There are Spiritual issues to be addressed Dictaphone Technician Interventions [] Prayer [] Active listening [] Non-anxious presence [] Spiritual/emotional support [] Crisis/trauma care [] Spiritual counseling [] Bereavement support [] Provided bereavement packet [] Provided Bible/devotional materials [] Provided toy/stuffed animal, coloring book to patient or family member [] Provided Communion [] Anointing/Independence [] Salvation [] Completed spiritual assessment [] Other: Impact on Illness or Injury [] Angry [] Fearful [] Anxious [] Often cries [] Exhaustion [] Unable to work [] Unable to attend alevism [] Unable to walk/stand [] Unable to read [] Unable to drive [] Unable to eat/drink [] Unable to sleep [] Unable to be with family [] Patient intubated [] Other: Summary Time spent with patient
--- NOTE | 2024-01-08 09:54 | PC.NURSE ---
hemovac removed and pressure dressing applied at 0900
== END 2024-01-08 09:45 | disposition home or self-care (01) | DRG 455 ==
LOC: MEDSURG 11:10
PROVIDERS: Admitting Provider Orthopaedic Surgery; PCP Family Medicine; Visit Provider Orthopaedic Surgery
PROC: 0SG00AJ Fusion of Lumbar Vertebral Joint with Interbody Fusion Device, Posterior Approach, Anterior Column, Open Approach (ICD-10-PCS; principal; 2024-01-07 07:00)
PROC: 0SG00AJ Fusion of Lumbar Vertebral Joint with Interbody Fusion Device, Posterior Approach, Anterior Column, Open Approach (ICD-10-PCS; CPT 22612; 2024-01-07 07:00)
PROC: 0SG00AJ Fusion of Lumbar Vertebral Joint with Interbody Fusion Device, Posterior Approach, Anterior Column, Open Approach (ICD-10-PCS; CPT 63005; 2024-01-07 07:00)
DX: M48.062 Spinal stenosis, lumbar region with neurogenic claudication (principal); I25.10 Atherosclerotic heart disease of native coronary artery without angina pectoris; K21.9 Gastro-esophageal reflux disease without esophagitis; J44.9 Chronic obstructive pulmonary disease, unspecified; I10 Essential (primary) hypertension; E78.2 Mixed hyperlipidemia; F17.210 Nicotine dependence, cigarettes, uncomplicated; Z79.82 Long term (current) use of aspirin; Z79.02 Long term (current) use of antithrombotics/antiplatelets; Z95.5 Presence of coronary angioplasty implant and graft; Z96.653 Presence of artificial knee joint, bilateral; Z90.79 Acquired absence of other genital organ(s)
CPT/HCPCS: 36415; 51702; 72100; 76000; 86850; 86900; 94640; 97116; 97161; C1713; C9359; J0690; J1100; J1170; J1200; J1885; J2250; J2371; J2405; J2704; J2710; J3010; J3370; J3490; J7030; J7120; J7613; J7626

== ENCOUNTER 2024-01-12 18:31 | Emergency (ER) | payer MEDICAID, SELFPAY ==
[2024-01-12 18:38] VITALS: BP 111/73; PULSE 81; RESP 17; TEMP 36.9; O2SAT 97; BMI 25.8
--- NOTE | 2024-01-12 18:46 | XRR_ITS ---
PROCEDURE INFORMATION: Exam: XR Abdomen Exam date and time: 01/12/2024 7:32 PM Age: 53 years old Clinical indication: Prior surgery; Surgery date: 3-7 days post-operative; Surgery type: Lumbar fusion 01/07/2024. Gb/appy/orchiectomy; Patient HX: C/O of constipation and urinary retention since lumbar fusion surgery five days ago. TECHNIQUE: Imaging protocol: Radiologic exam of the abdomen. Views: Frontal supine view of the abdomen. 1 View. COMPARISON: CR XR abdomen 1V* [id number] 11/21/2023 1:10 PM FINDINGS: Gastrointestinal tract: Large volume fecal debris noted throughout the colon. Intraperitoneal space: Right upper quadrant surgical clips suggest prior cholecystectomy. Bones/joints: Changes of lower lumbar fusion procedure are noted. No abnormal calcifications are seen over the kidneys or expected course of either ureter. XR/XR KUB [id number] IMPRESSION: Large volume fecal debris throughout the colon suggests constipation. No features of obstruction.
--- NOTE | 2024-01-12 18:50 | ED_ITS ---
HPI - Male Genitourinary 2 General: Chief complaint: Urogenital-Male Stated complaint: just had back surgery/having pain Time Seen by Provider: 01/12/24 18:46 History of Present Illness: 53-year-old male patient comes in today with complaints of difficulty urinating and constipation along with not feeling well. Patient had surgery on Sunday and was discharged on Sunday or Sunday and has been managing well at home but over the last 24 hours he has had increased painful urination and no bowel movement since his surgery. Patient appears unwell but not toxic. Patient appears in mild to moderate pain. Patient has chronic history of COPD, BPH, mental health disorder, coronary artery disease. Review of Systems 2 General: Reports: 10 or more systems reviewed and unremarkable except in HPI and below GI: Reports: constipation : Reports: difficulty urinating Musc: Reports: back pain PFSH ED 2 PFSH: Medical History Alpha galactosidase deficiency C. difficile colitis Atherosclerosis of coronary artery Medical marijuana use Diverticulosis GERD (gastroesophageal reflux disease) Chronic pancreatitis Urethral stricture COPD (chronic obstructive pulmonary disease) Essential (primary) hypertension Seizure disorder Mixed hyperlipidemia Osteoarthritis rt knee, cervical and Lumbar spine Heart attack Surgical History Status post right knee replacement Status post right knee replacement Hx of reconstruction of anterior cruciate ligament tear H/O neck surgery H/O left knee surgery History of appendectomy History of cholecystectomy H/O right knee surgery H/O chest tube placement H/O removal of testicle Stented coronary artery Family History Brother Parkinson disease Cancer Diabetes Stroke Family/Other Cancer Chronic kidney disease (CKD) Suicide Grandmother CAD (coronary artery disease) Cancer Lung disease Grandfather Dementia Mother Lung disease Father Suicide Denies family history of Clotting disorder Anesthesia complication Bleeding disorder Social History Smoking and tobacco/nicotine status: current every day tobacco/nicotine user cigarettes [ Other cigarette details: Had quit but today picked up again] Quit status (tobacco/nicotine): has tried quititng Alcohol intake: never Substance/Drug Use: current Substance/Drug use frequency: daily Other substance/drug use details: medical card Lives independently: Yes Household members: significant other Current occupational status: disabled Do you think of yourself as: Straight/Heterosexual Current gender identity: Male Physical Exam 2 Const: COMMON NORMALS: alert HENMT: COMMON NORMALS: normocephalic HEAD & SCALP: normocephalic Neck/C-Spine: COMMON NORMALS: full ROM Chest: COMMONS NORMALS: normal inspection of the chest Resp: COMMON NORMALS: normal respiratory effort AUSCULTATION: diminished lung sounds Cardio: COMMON NORMALS: regular rate and regular rhythm RATE: regular rate RHYTHM: regular rhythm GI: COMMON NORMALS: Soft to palpation PALPATION: Yes Soft to palpation and Yes Tenderness to palpation present (GI) (Mild) : COMMON NORMALS: Yes no CVA tenderness BLADDER/KIDNEY EXAM: Yes no CVA tenderness Back/Pelvis: COMMON NORMALS: no CVA tenderness OTHER: Intact dressing to lumbar incision no significant drainage Extremity: COMMON NORMALS: normal to inspection NARRATIVE EXTREMITY EXAM: Mild bilateral lower extremity edema +1 Neuro: SENSORIUM/ORIENTATION: Yes alert Skin: COMMON NORMALS: turgor normal GENERAL SKIN EXAM: turgor normal Course 2 Vital Signs: Vital signs: Vital Signs Temperature 98.5 F 01/12/24 18:38 Pulse Rate 81 01/12/24 18:38 Respiratory Rate 17 01/12/24 18:38 Blood Pressure 111/73 01/12/24 18:38 Pulse Oximetry 97 01/12/24 18:38 Oxygen Delivery Me thod Room Air 01/12/24 18:38 [facility] - Male Medical Decision Making 53-year-old male patient comes in today with difficulty urinating and for bowel movement. Patient reports symptoms for last 2 days. Patient reports no bowel movement since his surgery. Respirations are even lungs are clear to auscultation. Skin is warm and dry. Vital signs are normal. Differential diagnosis includes UTI, constipation, bowel obstruction, dehydration. KUB noted some constipation but no signs of bowel obstruction. CBC noted a white count of 6000, hemoglobin is 8.7 which is down from thirteen 1 month ago. CMP was remarkable for the increase in chloride at 110, bicarb 21, and glucose 125. Urinalysis had some increased white blood cells and red blood cells but also some increased skin cells. Urine will be sent for culture. Will go ahead and cover with antibiotics for possible infection of the urine cefdinir 300 mg twice a day for 5 days. Patient was question about capsules in his alpha gal and he states that he is able to tolerate capsules. Patient was given 1 g Rocephin in the ER. Patient was treated for pain and dehydration with IV fentanyl and hydromorphone and 1 L of IV fluids. Bladder scan after void noted 80 mL retained. Patient reports understanding of care plan need for follow-up or return to the ER. Lab Data 01/12/24 19:13 01/12/24 19:13 Laboratory Results WBC 6.64 10^3/uL (3.29-11.43) 01/12/24 19:13 RBC 2.65 10^6/uL (3.85-5.65) L 01/12/24 19:13 Hgb 8.70 g/dL (11.27-16.99) L 01/12/24 19:13 Hct 27.1 % (37-53) L 01/12/24 19:13 MCV 102.3 fl (82-101) H 01/12/24 19:13 MCH 32.8 pg (27-33) 01/12/24 19:13 MCHC 32.1 g/dL (30-55) 01/12/24 19:13 RDW 12.2 % (12.1-15.1) 01/12/24 19:13 Plt Count 236 10^3/cmm (157-399) 01/12/24 19:13 MPV 8.9 fL (7.4-10.4) 01/12/24 19:13 Neut % (Auto) 62.5 % 01/12/24 19:13 Lymph % (Auto) 22.0 % 01/12/24 19:13 [place] % (Auto) 9.0 % 01/12/24 19:13 Eos % (Auto) 4.4 % 01/12/24 19:13 Baso % (Auto) 0.6 % 01/12/24 19:13 Neut # (Auto) 4.15 10^3/uL (1.8-7.7) 01/12/24 19:13 Lymph # (Auto) 1.5 10^3/uL (0.8-4.8) 01/12/24 19:13 [place] # (Auto) 0.6 10^3/uL (0.2-0.9) 01/12/24 19:13 Eos # (Auto) 0.3 10^3/uL (0.0-0.8) 01/12/24 19:13 Baso # (Auto) 0.0 10^3/uL (0.0-0.1) 01/12/24 19:13 Nucleated RBC % (auto) 0 % 01/12/24 19:13 Nucleated RBCs # 0.0 /100WBC 01/12/24 19:13 Sodium 141 mmol/L (136-145) 01/12/24 19:13 Potassium 3.6 mmol/L (3.5-5.1) 01/12/24 19:13 Chloride 110 mmol/L (98-107) H 01/12/24 19:13 Carbon Dioxide 21 mmol/L (22-29) L 01/12/24 19:13 Anion Gap 13.6 (5-19) 01/12/24 19:13 BUN 18 mg/dL (6-20) 01/12/24 19:13 Creatinine 0.9 mg/dL (0.7-1.2) 01/12/24 19:13 GFR Calculation 88.6 mL/min (90-130) L 01/12/24 19:13 Glucose 125 mg/dL (65-115) H 01/12/24 19:13 Calculated Osmolality 295 mOsm/kg (285-295) 01/12/24 19:13 Lactic Acid 0.8 mmol/L (0.5-2.2) 01/12/24 19:13 Calcium 8.8 mg/dL (8.5-10.5) 01/12/24 19:13 Total Bilirubin 0.5 mg/dL (0.15-1.2) 01/12/24 19:13 AST 24 U/L (0-40) 01/12/24 19:13 ALT 15 U/L (0-41) 01/12/24 19:13 Alkaline Phosphatase 75 U/L (40-130) 01/12/24 19:13 C-Reactive Protein 80.2 mg/L (0.0-4.9) H 01/12/24 19:13 Total Protein 6.4 g/dL (6.6-8.7) L 01/12/24 19:13 Albumin 3.6 g/dL (3.5-5.2) 01/12/24 19:13 Globulin 2.8 g/dL (1.3-4.6) 01/12/24 19:13 Urine Color Yellow (Yellow) 01/12/24 19: Urine Appearance Cloudy (CLEAR) A 01/12/24 19:27 Urine pH 7 (5-7) 01/12/24 19:27 Ur Specific [place] 1.010 (1.005-1.030) 01/12/24 19:27 Urine Protein Neg (Negative) 01/12/24 19: Urine Glucose (UA) Norm (Normal) 01/12/24 19: Urine Ketones Negative (Negative) 01/12/24 19: Urine Blood 3+ (Negative) H 01/12/24 19: Urine Nitrate Negative (Negative) 01/12/24 19: Urine Bilirubin Neg (Negative) 01/12/24 19: Urine Urobilinogen 4 mg/dL (Negative) H 01/12/24 19:27 Ur Leukocyte Esterase Negative (Negative) 01/12/24 19:27 Urine RBC 15-25 /hpf (0-2) H 01/12/24 19:27 Urine WBC 5-10 /hpf (0-5) H 01/12/24 19:27 Ur Squamous Epith Cells 5-10 /hpf (0-5) H 01/12/24 19:27 Amorphous Sediment 1+ /hpf 01/12/24 19:27 Urine Bacteria 2+ /hpf (NONE) H 01/12/24 19:27 Urine Mucus Trace /hpf 01/12/24 19:27 XR interpretation done by ED provider, pending radiology final review Discharge Plan Discharge Patient Disposition: Home Clinical Impression: Acute UTI, Post-op pain, Dehydration Constipation Qualifiers: Constipation type: unspecified constipation type Qualified Code(s): K59.00 - Constipation, unspecified Condition: Stable Prescriptions: New Miralax 17 gram/dose powder 17 g PO BID PRN (Reason: constipation) Qty: 238 0RF Milk of Magnesia 400 mg/5 mL suspension 20 ml PO BID PRN (Reason: constipation) Qty: 355 0RF cefdinir 300 mg capsule 300 mg PO BID 5 Days Qty: 10 0RF No Action zonisamide 100 mg capsule 200 mg PO BID tamsulosin 0.4 mg capsule 0.4 mg PO QAM albuterol sulfate [ProAir HFA] 90 mcg/actuation HFA aerosol inhaler 2 puff INHALATION Q4H PRN (Reason: Shortness Of Breath) buspirone 30 mg tablet 30 mg PO QAM albuterol sulfate 2.5 mg /3 mL (0.083 %) solution for nebulization 2.5 mg inhalation BID atorvastatin 80 mg tablet 80 mg PO QAM Qty: 90 3RF nicotine 21 mg/24 hr patch 24 hour See Rx Instructions .ROUTE .COMPLEX Qty: 42 0RF Dose Instruction: apply and CHANGE ONE PATCH EVERY DAY FOR SIX weeks Rx Instructions: apply and CHANGE ONE PATCH EVERY DAY FOR SIX weeks (DME) Bone Growth Stimulator See Rx Instructions .Route .MEDSUPPLY Qty: 1 0RF Rx Instructions: As directed pantoprazole 40 mg tablet,delayed release (DR/EC) 40 mg PO BIDWM Qty: 60 0RF quetiapine 50 mg tablet 50 mg PO BEDTIME clonazepam 2 mg tablet 2 mg PO BID PRN (Reason: Anxiety) nitroglycerin [Nitrostat] 0.4 mg Tablet, Sublingual 0.4 mg SUBLINGUAL Q5M PRN (Reason: Chest Pain) Rx Instructions: do not exceed 3 doses per episode ipratropium-albuterol 0.5 mg-3 mg(2.5 mg base)/3 mL solution for nebulization 3 ml INHALATION Q6H PRN (Reason: Shortness Of Breath) budesonide 0.5 mg/2 mL suspension for nebulization 0.5 mg inhalation BID PRN (Reason: copd) fluticasone propion-salmeterol [Advair Diskus] 100-50 mcg/dose blister with device 1 inh INHALATION BID methocarbamol 750 mg tablet 750 mg PO Q6H PRN (Reason: spasms) Qty: 20 0RF clopidogrel 75 mg tablet 75 mg PO DAILY Hold Instructions: Resume on 01/09/24. Rx Instructions: TAKE ONE TABLET BY MOUTH DAILY aspirin 81 mg tablet,delayed release (DR/EC) 81 mg PO DAILY Rx Instructions: TAKE 1 TABLET BY MOUTH EVERY MORNING magnesium L-lactate 84 mg tablet extended release 84 mg PO DAILY Rx Instructions: TAKE 1 TABLET BY MOUTH EVERY DAY hydrocodone-acetaminophen 10-325 mg tablet 1 tab PO Q4H PRN (Reason: pain) 7 Days Qty: 40 0RF Discharge Orders: Discharge ED (Routine); Ordered 01/12/24 Ordered By: Gee Tripathi Referrals: Davy Blanton [Primary Care Provider] - Discharge Diet: Usual diet Discharge Activity: Increase activity as tolerated Patient Instructions: Opioid Safety, Pain Management Activity Restrictions/Additional Instructions: Make sure to drink plenty of water and fluids. Use MiraLAX 17 g twice a day to help control and promote bowel function. Use milk of magnesia 20 mL twice a day for further constipation relief. Continue with routine medications for pain. Make sure to drink plenty of water. Take antibiotic cefdinir 1 capsule twice a day for the next 5 days. Follow-up with primary care or surgeon for repeat evaluation. Return to ER for worsening symptoms such as fever greater than 100.5, blood in vomit or stool, or new concerns. 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
[2024-01-12 19:19] LABS: Basophils % 0.6 %; Eosinophils # 0.3 10^3/uL (0.0-0.8); Eosinophils % 4.4 %; Hematocrit 27.1 % (37-53); Lymphocytes # 1.5 10^3/uL (0.8-4.8); Mean Corpuscular HGB Conc 32.1 g/dL (30-55); Mean Corpuscular Hemoglobin 32.8 pg (27-33); Mean Corpuscular Volume 102.3 fl (82-101); Mean Platelet Volume 8.9 fL (7.4-10.4); Monocytes # 0.6 10^3/uL (0.2-0.9); Neutrophils # 4.15 10^3/uL (1.8-7.7); Neutrophils % 62.5 %; Nucleated Red Blood Cells % 0 %; Platelet Count 236 10^3/cmm (157-399); Red Blood Count 2.65 10^6/uL (3.85-5.65); Red Cell Distribution Width 12.2 % (12.1-15.1); White Blood Count 6.64 10^3/uL (3.29-11.43)
[2024-01-12] MEDS: sodium chloride 0.9% 1,000 ML 999 ML IV (19:19)
[2024-01-12] MEDS: fentaNYL 50 mcg/mL INJ 2mL IVP (19:19)
[2024-01-12] MEDS: ondansetron 2 mg/ML SDV 2 mL 4 MG IVP (19:19)
[2024-01-12 19:40] LABS: Alanine Aminotransferase 15 U/L (0-41); Albumin Level 3.6 g/dL (3.5-5.2); Alkaline Phosphatase 75 U/L (40-130); Aspartate Amino Transferase 24 U/L (0-40); Blood Urea Nitrogen 18 mg/dL (6-20); C Reactive Protein 80.2 mg/L (0.0-4.9); Calcium 8.8 mg/dL (8.5-10.5); Carbon Dioxide 21 mmol/L (22-29); Chloride 110 mmol/L (98-107); Creatinine Clr Calc Pharmacy 91.4086; Globulin 2.8 g/dL (1.3-4.6); Glomerular Filtration Rate 88.6 mL/min (90-130); Glucose 125 mg/dL (65-115); Osmolality Calculated 295 mOsm/kg (285-295); Sodium 141 mmol/L (136-145); Total Bilirubin 0.5 mg/dL (0.15-1.2); Total Protein 6.4 g/dL (6.6-8.7)
[2024-01-12 19:41] LABS: Lactic Sepsis W/Reflex 0.8 mmol/L (0.5-2.2)
[2024-01-12 19:42] LABS: Anion Gap 13.6 (5-19); Potassium 3.6 mmol/L (3.5-5.1)
[2024-01-12 19:48] LABS: Add Urine Microscopic? YES; Bacteria Urine 2+ /hpf; Bilirubin Urine Neg (Negative); Blood Urine 3+ (Negative); Glucose Urine UA Norm (Normal); Ketones Urine Negative (Negative); Leukocyte Esterase Urine Negative (Negative); Nitrate Urine Negative (Negative); Protein Urine Neg (Negative); RBC Urine 15-25 /hpf (0-2); Urine Appearance Cloudy (CLEAR); Urine Color Yellow (Yellow); Urobilinogen Urine 4 mg/dL (Negative); pH Urine 7 (5-7)
[2024-01-12 19:49] LABS: Add Urine Culture? Yes; Amorphous Sediment Urine 1+ /hpf; Mucus Urine TRACE /hpf
[2024-01-12] MEDS: HYDROmorphone 1 mg/mL INJ 1 mL IVP (20:16)
[2024-01-12] MEDS: cefTRIAXone 1,000 MG in sodium chloride 0.9% (plus) 50 ML 100 MG IV (20:16)
[2024-01-12 21:00] VITALS: BP 120/68; PULSE 76; RESP 16; TEMP 36.9; O2SAT 98
== END 2024-01-12 21:01 | disposition home or self-care (01) ==
PROVIDERS: Emergency Provider Nurse Practitioner Family; PCP Family Medicine
DX: K59.00 Constipation, unspecified (principal); N39.0 Urinary tract infection, site not specified; G89.18 Other acute postprocedural pain; E86.0 Dehydration; Z79.02 Long term (current) use of antithrombotics/antiplatelets; Z79.82 Long term (current) use of aspirin; F17.210 Nicotine dependence, cigarettes, uncomplicated; J44.9 Chronic obstructive pulmonary disease, unspecified; I10 Essential (primary) hypertension; E78.2 Mixed hyperlipidemia
CPT/HCPCS: 51798; 74018; 80053; 81001; 83605; 85025; 86140; 87086; 96361; 96365; 96375; 99285; J0696; J1170; J2405; J3010; J7030

== ENCOUNTER → 2024-01-22 14:16 | Outpatient (BNVA) | payer MEDICAID, SELFPAY | PROVIDERS: PCP Family Medicine; Visit Provider Orthopaedic Surgery | DX: Z98.1 Arthrodesis status (principal) | CPT/HCPCS: 99024 ==

== ENCOUNTER 2024-01-29 16:11 | Emergency (ER) | payer MEDICAID, SELFPAY ==
[2024-01-29 16:17] VITALS: BP 128/78; PULSE 57; RESP 16; TEMP 36.8; O2SAT 99
--- NOTE | 2024-01-29 17:19 | ECG_ITS ---
[facility] Test Date: 2024-01-29 Pat Name: Josue Cheng Department: Room: Gender: Male Process Validation Engineer: : 1970 Requested By: Jr Freeman Order Number: [id number] Archana MD: Placido Garza M.D. Measurements Intervals [place] Rate: 52 P: 66 DC: 186 QRS: 82 QRSD: 102 T: 60 QT: 433 QTc: 403 Interpretive Statements SINUS BRADYCARDIA WITH SINUS ARRHYTHMIA MODERATE ST DEPRESSION [0.05+ mV ST DEPRESSION] Compared to ECG 12/11/2023 10:03:12 ST (T wave) deviation now present Sinus rhythm no longer present Myocardial infarct finding no longer present Electronically Signed On 01-29-2024 22:15:53 CDT by Placido Garza M.D. [id number]
--- NOTE | 2024-01-29 17:19 | XRR_ITS ---
PROCEDURE INFORMATION: Exam: XR Chest Exam date and time: 01/29/2024 5:35 PM Age: 53 years old Clinical indication: Shortness of breath; Prior surgery; Surgery date: 1-6 months; Surgery type: C. Spine; Additional info: SOB TECHNIQUE: Imaging protocol: Radiologic exam of the chest. Views: 1 view. COMPARISON: CR XR chest 1V portable [id number] 05/28/2023 9:43 AM FINDINGS: Lungs: No consolidation. Pleural spaces: No pleural effusion. No pneumothorax. Heart/Mediastinum: No cardiomegaly. Bones/joints: ACDF hardware noted within the lower cervical spine. Visualized osseous structures are intact. XR/XR chest 1V portable [id number] IMPRESSION: No acute findings.
--- NOTE | 2024-01-29 17:54 | ED_ITS ---
HPI - Nausea/Vomiting/Diarrhea 2 General: Chief complaint: Nausea/Vomiting/Diarrhea Stated complaint: back pain,n/V, Time Seen by Provider: 01/29/24 16:31 Source: patient Mode of arrival: ambulatory Limitations: no limitations History of Present Illness: Patient is a 53-year-old male presenting to the emergency department complaining of nausea vomiting began today. He notes 10 episodes of emesis, and also reports that he has had popping up and down his spine. He is 2 weeks postop from lumbar fusion, states that he has been fine and pain has been controlled up until today. He does note that there is some pain related to the popping sensation, though it is not very significant. He also notes he has remained ambulatory and does not have any distal neurovascular issues. Further denies any bowel or bladder incontinence, numbness or weakness of the extremities, saddle anesthesia, or fevers. He is noting some vague abdominal pain, thinks it is likely from vomiting. He reports past medical history of SC, COPD, and gastroesophageal reflux disorder. Has not taken anything for symptoms, as he states he cannot keep any medications down. Further states that he cannot keep food or water down. No other symptoms or concerning historical factors to note at this time. At this time on physical examination, he is afebrile and does note that he feels mildly short of breath. MD elicited complaint: nausea and vomiting Pertinent past history: other (Recent back surgery) Onset (ago): hour(s) Associated nausea: Yes Associated abdominal pain: Yes Location of pain: Diffuse Quality: cramping Associated symtoms: Reports nausea; Denies chest pain, diaphoresis, dizziness, dysuria, headache(s) or palpitations Review of Systems 2 General: Reports: 10 or more systems reviewed and unremarkable except in HPI and below Const: Reports: change in appetite; Denies: fever(s), chills, change in weight or diaphoresis ENMT: Denies: throat pain or hoarseness Card: Denies: chest pain, palpitations or lightheadedness Resp: Reports: dyspnea; Denies: productive cough or wheezing GI: Reports: abdominal pain, nausea and vomiting; Denies: hematemesis, diarrhea, constipation or change in bowel habits : Denies: flank pain, difficulty urinating, dysuria, urinary frequency or urinary urgency Musc: Reports: back pain; Denies: neck pain or joint pain Skin/Breast: Denies: rash or new lesions Neuro: Denies: headache(s) or dizziness PFSH ED 2 PFSH: Medical History Alpha galactosidase deficiency C. difficile colitis Atherosclerosis of coronary artery Medical marijuana use Diverticulosis GERD (gastroesophageal reflux disease) Chronic pancreatitis Urethral stricture COPD (chronic obstructive pulmonary disease) Essential (primary) hypertension Seizure disorder Mixed hyperlipidemia Osteoarthritis rt knee, cervical and Lumbar spine Heart attack Surgical History Status post right knee replacement Status post right knee replacement Hx of reconstruction of anterior cruciate ligament tear H/O neck surgery H/O left knee surgery History of appendectomy History of cholecystectomy H/O right knee surgery H/O chest tube placement H/O removal of testicle Stented coronary artery Family History Brother Parkinson disease Cancer Diabetes Stroke Family/Other Cancer Chronic kidney disease (CKD) Suicide Grandmother CAD (coronary artery disease) Cancer Lung disease Grandfather Dementia Mother Lung disease Father Suicide Denies family history of Clotting disorder Anesthesia complication Bleeding disorder Social History Smoking and tobacco/nicotine status: current every day tobacco/nicotine user cigarettes [ Other cigarette details: Had quit but today picked up again] Quit status (tobacco/nicotine): has tried quititng Alcohol intake: never Substance/Drug Use: current Substance/Drug use frequency: daily Other substance/drug use details: medical card Lives independently: Yes Household members: significant other Current occupational status: disabled Do you think of yourself as: Straight/Heterosexual Current gender identity: Male Physical Exam 2 Const: COMMON NORMALS: no acute distress, average body habitus, patient oriented x3, no limitations, healthy appearing, alert and well nourished G ENERAL APPEARANCE: cooperative and comfortable ORIENTATION/CONSCIOUSNESS: Yes awake HENMT: COMMON NORMALS: normocephalic, atraumatic, hearing grossly normal bilaterally, external ears normal, Normal external nose present and Normal nasal mucous membranes and turbinates present HEAD & SCALP: normocephalic and atraumatic NOSE: Normal external nose present and Normal nasal mucous membranes and turbinates present EXTERNAL EAR: Yes external ears normal O THER: Dry oral mucosa Eye: COMMON NORMALS: Equal, round and reactive pupils present, EOMs intact bilaterally, conjunctivae normal and normal visual coyne by confrontation C ONJUNCTIVA: Yes conjunctivae normal PUPIL: Yes Equal, round and reactive pupils present Neck/C-Spine: COMMON NORMALS: full ROM, supple, no meningeal signs and no JVD Resp: COMMON NORMALS: normal respiratory effort, No retractions, No use of accessory muscles and clear to auscultation bilaterally AUSCULTATION: clear to auscultation bilaterally, no crackles, no rales, no rhonchi and no wheezes Cardio: COMMON NORMALS: no JVD, regular rate, regular rhythm, S1 normal heart sound present, S2 normal heart sound present, No gallops present (Cardio), No clicks present (Cardio), No murmurs present (Cardio), No rub (Cardio) and Peripheral pulses 2+ throughout RATE: regular rate RHYTHM: regular rhythm HEART SOUNDS: S1 normal heart sound present and S2 normal heart sound present PERIPHERAL PULSES: Peripheral pulses 2+ throughout GI: COMMON NORMALS: Normal to inspection, nondistended, normoactive bowel sounds present, Soft to palpation, No hepatosplenomegaly present and no masses AUSCULTATION: Yes normoactive bowel sounds PALPATION: Yes Soft to palpation, No Guarding due to palpation present (GI), No Rigid due to palpation and Yes No hepatosplenomegaly present RECTAL EXAM: Yes deferred OTHER: Mild diffuse tenderness to palpation : COMMON NORMALS: Yes no CVA tenderness BLADDER/KIDNEY EXAM: Yes no CVA tenderness Back/Pelvis: COMMON NORMALS: no CVA tenderness OTHER: Postoperative lumbar scar, no significant reproducible tenderness to palpation of the spinous process. Wound seems to be healing well. Extremity: COMMON NORMALS: normal to inspection and full ROM NARRATIVE EXTREMITY EXAM: No distal neurovascular deficits noted. Neuro: COMMON NORMALS: patient oriented x3, moves all extremities, no focal motor deficits, no sensory deficits noted and deep tendon reflexes 2+ bilaterally SENSORIUM/ORIENTATION: Yes alert MENINGEAL SIGNS: Yes no meningeal signs Psych: COMMON NORMALS: mental status grossly normal, cooperative and speech normal SPEECH: Yes normal speech Skin: COMMON NORMALS: no rashes or lesions noted GENERAL SKIN EXAM: no rashes or lesions noted Course 2 Vital Signs: Vital signs: Vital Signs Temperature 98.2 F 01/29/24 16:17 Pulse Rate 74 01/29/24 20:00 Respiratory Rate 16 01/29/24 20:00 Blood Pressure 128/78 01/29/24 16:17 Pulse Oximetry 100 01/29/24 20:00 Oxygen Delivery Me thod Room Air 01/29/24 20:00 MDM - Nausea/Vomiting/Diarrhea Medical Decision Making Patient presents with nausea and vomiting, is 2 weeks status post fusion surgery. Stating he was feeling some weird popping up and down the spine, however did not have any real pain. His lab work overall is unremarkable. EKG did not demonstrate any acute findings. CRP and lactic normal. Urinalysis ultimately unremarkable. Imaging was done, CT of the abdomen chest and pelvis did not reveal any acute findings. Unsure of why patient has been nausea and vomiting, we will treat with Zofran as he states he does feel better after receiving pain medication and nausea medication. I also informed him to call Dr. Da Silva's office tomorrow to get an earlier appointment for reevaluation, as there also is no acute findings on CT of any abnormal hardware or complications thereof. This case was discussed with supervising ED physician, Dr. Alfaro, who agrees with disposition at this time. Strict return precautions were given to the patient. Lab Data 01/29/24 18:19 01/29/24 18:19 Radiology Impressions Chest X-Ray 01/29/24 17:19 IMPRESSION: No acute findings. Chest/Abdomen/Pelvis CT 01/29/24 18:18 IMPRESSION: 1. No acute findings. 2. Moderate emphysematous changes of the lungs. IMPRESSION: No acute findings. COMMENTS: Consistent with the [place]'s Incidental Findings Committee white paper (J Am Diane Radiol 2018): Any incidental renal lesion less than 1 cm or classified as too small to characterize, or any incidental cystic renal lesion characterized as simple-appearing, is likely benign. No follow-up imaging is recommended for these lesions per consensus recommendations based on imaging criteria. Laboratory Results WBC 10.62 10^3/uL (3.29-11.43) 01/29/24 18:19 RBC 3.50 10^6/uL (3.85-5.65) L 01/29/24 18:19 Hgb 11.30 g/dL (11.27-16.99) 01/29/24 18:19 Hct 34.0 % (37-53) L 01/29/24 18:19 MCV 97.1 fl (82-101) 01/29/24 18:19 MCH 32.3 pg (27-33) 01/29/24 18:19 MCHC 33.2 g/dL (30-55) 01/29/24 18:19 RDW 12.2 % (12.1-15.1) 01/29/24 18:19 Plt Count 328 10^3/cmm (157-399) 01/29/24 18:19 MPV 8.7 fL (7.4-10.4) 01/29/24 18:19 Neut % (Auto) 86.1 % 01/29/24 18:19 Lymph % (Auto) 9.8 % 01/29/24 18:19 [place] % (Auto) 3.5 % 01/29/24 18:19 Eos % (Auto) 0.0 % 01/29/24 18:19 Baso % (Auto) 0.3 % 01/29/24 18:19 Neut # (Auto) 9.15 10^3/uL (1.8-7.7) H 01/29/24 18:19 Lymph # (Auto) 1.0 10^3/uL (0.8-4.8) 01/29/24 18:19 [place] # (Auto) 0.4 10^3/uL (0.2-0.9) 01/29/24 18:19 Eos # (Auto) 0.0 10^3/uL (0.0-0.8) 01/29/24 18:19 Baso # (Auto) 0.0 10^3/uL (0.0-0.1) 01/29/24 18:19 Nucleated RBC % (auto) 0 % 01/29/24 18:19 Nucleated RBCs # 0.0 /100WBC 01/29/24 18:19 Sodium 140 mmol/L (136-145) 01/29/24 18:19 Potassium 3.5 mmol/L (3.5-5.1) 01/29/24 18:19 Chloride 107 mmol/L (98-107) 01/29/24 18:19 Carbon Dioxide 17 mmol/L (22-29) L 01/29/24 18:19 Anion Gap 19.5 (5-19) H 01/29/24 18:19 BUN 18 mg/dL (6-20) 01/29/24 18:19 Creatinine 0.8 mg/dL (0.7-1.2) 01/29/24 18:19 GFR Calculation 101.5 mL/min (90-130) 01/29/24 18:19 Glucose 151 mg/dL (65-115) H 01/29/24 18:19 Calculated Osmolality 295 mOsm/kg (285-295) 01/29/24 18:19 Lactic Acid 1.1 mmol/L (0.5-2.2) 01/29/24 18:19 Calcium 9.5 mg/dL (8.5-10.5) 01/29/24 18:19 Total Bilirubin 0.6 mg/dL (0.15-1.2) 01/29/24 18:19 AST 13 U/L (0-40) 01/29/24 18:19 ALT 8 U/L (0-41) 01/29/24 18:19 Alkaline Phosphatase 195 U/L (40-130) H 01/29/24 18:19 C-Reactive Protein 4.7 mg/L (0.0-4.9) 01/29/24 18:19 Total Protein 7.5 g/dL (6.6-8.7) 01/29/24 18:19 Albumin 4.4 g/dL (3.5-5.2) 01/29/24 18:19 Globulin 3.1 g/dL (1.3-4.6) 01/29/24 18:19 Urine Color Yellow (Yellow) 01/29/24 19:30 Urine Appearance Slightly cloudy (CLEAR) 01/29/24 19:30 Urine pH 9 (5-7) H 01/29/24 19:30 Ur Specific [place] 1.015 (1.005-1.030) 01/29/24 19:30 Urine Protein Neg (Negative) 01/29/24 19:30 Urine Glucose (UA) Norm (Normal) 01/29/24 19:30 Urine Ketones 2+ (Negative) H 01/29/24 19:30 Urine Blood 2+ (Negative) H 01/29/24 19:30 Urine Nitrate Negative (Negative) 01/29/24 19:30 Urine Bilirubin Neg (Negative) 01/29/24 19:30 Urine Urobilinogen Norm mg/dL (Negative) 01/29/24 19:30 Ur Leukocyte Esterase Trace (Negative) H 01/29/24 19:30 Urine RBC 15-25 /hpf (0-2) H 01/29/24 19:30 Urine WBC 10-15 /hpf (0-5) H 01/29/24 19:30 Ur Squamous Epith Cells 0-4 /hpf (0-5) H 01/29/24 19:30 Amorphous Sediment 3+ /hpf 01/29/24 19:30 Urine Bacteria Trace /hpf (NONE) 01/29/24 19:30 All radiology interpretation(s) finalized by discharge Discharge Plan Discharge Patient Disposition: Home Clinical Impression: Nausea and vomiting, Postoperative back pain Condition: Stable Prescriptions: New ondansetron HCl 4 mg tablet 4 mg PO Q8H Qty: 30 0RF No Action zonisamide 100 mg capsule 200 mg PO BID tamsulosin 0.4 mg capsule 0.4 mg PO QAM albuterol sulfate [ProAir HFA] 90 mcg/actuation HFA aerosol inhaler 2 puff INHALATION Q4H PRN (Reason: Shortness Of Breath) buspirone 30 mg tablet 30 mg PO QAM albuterol sulfate 2.5 mg /3 mL (0.083 %) solution for nebulization 2.5 mg inhalation BID atorvastatin 80 mg tablet 80 mg PO QAM Qty: 90 3RF nicotine 21 mg/24 hr patch 24 hour See Rx Instructions .ROUTE .COMPLEX Qty: 42 0RF Dose Instruction: apply and CHANGE ONE PATCH EVERY DAY FOR SIX weeks Rx Instructions: apply and CHANGE ONE PATCH EVERY DAY FOR SIX weeks (DME) Bone Growth Stimulator See Rx Instructions .Route .MEDSUPPLY Qty: 1 0RF Rx Instructions: As directed hydrocodone-acetaminophen 5-325 mg tablet 1 tab PO Q4H PRN (Reason: pain) 7 Days Qty: 42 0RF pantoprazole 40 mg tablet,delayed release (DR/EC) 40 mg PO BIDWM Qty: 60 0RF quetiapine 50 mg tablet 50 mg PO BEDTIME clonazepam 2 mg tablet 2 mg PO BID PRN (Reason: Anxiety) nitroglycerin [Nitrostat] 0.4 mg Tablet, Sublingual 0.4 mg SUBLINGUAL Q5M PRN (Reason: Chest Pain) Rx Instructions: do not exceed 3 doses per episode ipratropium-albuterol 0.5 mg-3 mg(2.5 mg base)/3 mL solution for nebulization 3 ml INHALATION Q6H PRN (Reason: Shortness Of Breath) budesonide 0.5 mg/2 mL suspension for nebulization 0.5 mg inhalation BID PRN (Reason: copd) fluticasone propion-salmeterol [Advair Diskus] 100-50 mcg/dose blister with device 1 inh INHALATION BID methocarbamol 750 mg tablet 750 mg PO Q6H PRN (Reason: spasms) Qty: 20 0RF Miralax 17 gram/dose powder 17 g PO BID PRN (Reason: constipation) Qty: 238 0RF Milk of Magnesia 400 mg/5 mL suspension 20 ml PO BID PRN (Reason: constipation) Qty: 355 0RF clopidogrel 75 mg tablet 75 mg PO DAILY Hold Instructions: Resume on 01/09/24. Rx Instructions: TAKE ONE TABLET BY MOUTH DAILY aspirin 81 mg tablet,delayed release (DR/EC) 81 mg PO DAILY Rx Instructions: TAKE 1 TABLET BY MOUTH EVERY MORNING magnesium L-lactate 84 mg tablet extended release 84 mg PO DAILY Rx Instructions: TAKE 1 TABLET BY MOUTH EVERY DAY Discharge Orders: Discharge ED (Routine); Ordered 01/29/24 Ordered By: Jr Jenkins Discharge Diet: As Directed Discharge Activity: Increase activity as tolerated Patient Instructions: Opioid Safety, Pain Management Activity Restrictions/Additional Instructions: Take nausea medications and continue pain medications at home. Please call orthopedics/spine tomorrow to schedule earlier appointment. GI soft diet. Monitor for any new or worsening symptoms and return for reevaluation. 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
[2024-01-29 18:00] VITALS: PULSE 72; O2SAT 95
--- NOTE | 2024-01-29 18:18 | CTR_ITS ---
PROCEDURE INFORMATION: Exam: CT Chest With Contrast; Diagnostic Exam date and time: 01/29/2024 7:40 PM Age: 53 years old Clinical indication: Other: Low back pain; Prior surgery; Surgery date: <1 month; Surgery type: Low back surgery January 06-pain; Additional info: N/v, diffuse abd pain, HX of copd, recent back surgery TECHNIQUE: Imaging protocol: Diagnostic computed tomography of the chest with contrast. Radiation optimization: All CT scans at this facility use at least one of these dose optimization techniques: automated exposure control; mA and/or kV adjustment per patient size (includes targeted exams where dose is matched to clinical indication); or iterative reconstruction. Contrast material: OMNI 350; Contrast volume: 100 ml; Contrast route: INTRAVENOUS (IV); COMPARISON: CR (CHEST, ) 01/29/2024 5:35 PM RADIATION DOSE METRICS: Total DLP (mGy-cm): 434 FINDINGS: Lungs: Moderate centrilobular emphysematous changes of the lungs. No consolidation. No masses. Pleural spaces: Unremarkable. No pneumothorax. No pleural effusion. Heart: Coronary artery calcifications noted. No cardiomegaly. No pericardial effusion. Lymph nodes: Unremarkable. No enlarged lymph nodes. Vasculature: Unremarkable. No aortic aneurysm. Bones/joints: Unremarkable. No acute fracture. Soft tissues: Unremarkable. COMMENTS: The presence of pulmonary emphysema on CT is an independent risk factor for lung cancer. In the absence of a history or active diagnosis of lung cancer, it is recommended that this patient with emphysema be evaluated for enrollment in a low dose CT lung cancer screening program. PROCEDURE INFORMATION: Exam: CT Abdomen And Pelvis With Contrast Exam date and time: 01/29/2024 7:40 PM Age: 53 years old Clinical indication: Other: Low back pain; Prior surgery; Surgery date: <1 month; Surgery type: Low back surgery January 06pain; Additional info: N/v, diffuse abd pain, HX of copd, recent back surgery TECHNIQUE: Imaging protocol: Computed tomography of the abdomen and pelvis with contrast. Radiation optimization: All CT scans at this facility use at least one of these dose optimization techniques: automated exposure control; mA and/or kV adjustment per patient size (includes targeted exams where dose is matched to clinical indication); or iterative reconstruction. Contrast material: OMNI 350; Contrast volume: 100 ml; Contrast route: INTRAVENOUS (IV); COMPARISON: CT abdomen pelvis w con* [id number] 06/29/2022 8:41 PM RADIATION DOSE METRICS: Total DLP (mGy-cm): 634 FINDINGS: Liver: Normal. No mass. Gallbladder and biliary ducts: Cholecystectomy. No ductal dilation. Pancreas: Normal. No ductal dilation. Spleen: Normal. No splenomegaly. Adrenal glands: Normal. No mass. Kidneys and ureters: Scattered cysts noted in both kidneys the largest measuring 3 cm in the upper pole of the right kidney. No hydronephrosis. Stomach and bowel: Colonic diverticulosis. No obstruction. No mucosal thickening. Appendix: Appendectomy. Intraperitoneal space: Unremarkable. No free air. No significant fluid collection. Vasculature: Unremarkable. No abdominal aortic aneurysm. Lymph nodes: Unremarkable. No enlarged lymph nodes. Urinary bladder: Unremarkable as visualized. Reproductive: Unremarkable as visualized. Bones/joints: No acute fracture. Intact posterior spinal fusion hardware with intervertebral disc spacers at the L4-S1 segment. Soft tissues: Unremarkable. CT/CT chest abdpel w/*[id number] IMPRESSION: 1. No acute findings. 2. Moderate emphysematous changes of the lungs. IMPRESSION: No acute findings. COMMENTS: Consistent with the [employer]'s Incidental Findings Committee white paper (J Am Diane Radiol 2018): Any incidental renal lesion less than 1 cm or classified as too small to characterize, or any incidental cystic renal lesion characterized as simple-appearing, is likely benign. No follow-up imaging is recommended for these lesions per consensus recommendations based on imaging criteria.
[2024-01-29 18:21] VITALS: PULSE 75; RESP 18; O2SAT 93
[2024-01-29 18:26] LABS: Basophils % 0.3 %; Lymphocytes % 9.8 %; Mean Corpuscular HGB Conc 33.2 g/dL (30-55); Mean Corpuscular Hemoglobin 32.3 pg (27-33); Mean Corpuscular Volume 97.1 fl (82-101); Mean Platelet Volume 8.7 fL (7.4-10.4); Monocytes # 0.4 10^3/uL (0.2-0.9); Monocytes % 3.5 %; Neutrophils # 9.15 10^3/uL (1.8-7.7); Neutrophils % 86.1 %; Nucleated Red Blood Cells % 0 %; Platelet Count 328 10^3/cmm (157-399); Red Cell Distribution Width 12.2 % (12.1-15.1); White Blood Count 10.62 10^3/uL (3.29-11.43)
[2024-01-29 18:45] LABS: Lactic Sepsis W/Reflex 1.1 mmol/L (0.5-2.2)
[2024-01-29 18:46] LABS: Alanine Aminotransferase 8 U/L (0-41); Albumin Level 4.4 g/dL (3.5-5.2); Alkaline Phosphatase 195 U/L (40-130); Anion Gap 19.5 (5-19); Aspartate Amino Transferase 13 U/L (0-40); Blood Urea Nitrogen 18 mg/dL (6-20); C Reactive Protein 4.7 mg/L (0.0-4.9); Calcium 9.5 mg/dL (8.5-10.5); Carbon Dioxide 17 mmol/L (22-29); Chloride 107 mmol/L (98-107); Creatinine Clr Calc Pharmacy 105.6067; Globulin 3.1 g/dL (1.3-4.6); Glomerular Filtration Rate 101.5 mL/min (90-130); Glucose 151 mg/dL (65-115); Osmolality Calculated 295 mOsm/kg (285-295); Potassium 3.5 mmol/L (3.5-5.1); Sodium 140 mmol/L (136-145); Total Bilirubin 0.6 mg/dL (0.15-1.2); Total Protein 7.5 g/dL (6.6-8.7)
[2024-01-29] MEDS: ondansetron 2 mg/ML SDV 2 mL 4 MG IVP ×2 (19:25→21:13)
[2024-01-29] MEDS: sodium chloride 0.9% 1,000 ML 999 ML IV (19:25)
[2024-01-29 19:36] VITALS: PULSE 60; RESP 18; O2SAT 99
[2024-01-29] MEDS: iohexol 350 mg/mL 500 mL Btl (per mL) IV (19:45)
[2024-01-29 20:00] VITALS: PULSE 74; RESP 16; O2SAT 100
[2024-01-29] MEDS: HYDROcodone-acetaminophen 7.5-325 mg Tablet 1 TAB PO (20:12)
[2024-01-29 20:18] LABS: Urine Color Yellow (Yellow)
[2024-01-29 20:19] LABS: Amorphous Sediment Urine 3+ /hpf; Bacteria Urine TRACE /hpf; Bilirubin Urine Neg (Negative); Blood Urine 2+ (Negative); Glucose Urine UA Norm (Normal); Ketones Urine 2+ (Negative); Leukocyte Esterase Urine Trace (Negative); Nitrate Urine Negative (Negative); Protein Urine Neg (Negative); RBC Urine 15-25 /hpf (0-2); Specific Gravity, Urine 1.015 (1.005-1.030); Squamous Epithelial Cell Urine 0-4 /hpf (0-5); Urine Appearance Slightly Cloudy (CLEAR); Urobilinogen Urine Norm (Negative); pH Urine 9 (5-7)
[2024-01-29 20:20] LABS: Add Urine Culture? Yes
== END 2024-01-29 21:25 | disposition home or self-care (01) ==
PROVIDERS: Emergency Medicine; Emergency Provider Physician Assistant
DX: R11.2 Nausea with vomiting, unspecified (principal); G89.18 Other acute postprocedural pain; M54.9 Dorsalgia, unspecified; I25.10 Atherosclerotic heart disease of native coronary artery without angina pectoris; J44.9 Chronic obstructive pulmonary disease, unspecified; I10 Essential (primary) hypertension; E78.2 Mixed hyperlipidemia; F17.210 Nicotine dependence, cigarettes, uncomplicated; Z79.02 Long term (current) use of antithrombotics/antiplatelets; Z79.82 Long term (current) use of aspirin
CPT/HCPCS: 36415; 71045; 71260; 74177; 80053; 81001; 83605; 85025; 86140; 87040; 87086; 93005; 96361; 96374; 96376; 99285; J2405; J7030; Q9967

== ENCOUNTER 2024-02-03 13:46 | Emergency (ER) | payer MEDICAID, SELFPAY ==
[2024-02-03 14:30] VITALS: BP 157/98; PULSE 57; RESP 16; TEMP 36.6; O2SAT 99
--- NOTE | 2024-02-03 16:13 | ED_ITS ---
HPI - Nausea/Vomiting/Diarrhea 2 General: Chief complaint: Nausea/Vomiting/Diarrhea Stated complaint: N/V Time Seen by Provider: 02/03/24 15:45 Source: patient Mode of arrival: ambulatory Limitations: no limitations History of Present Illness: 53-year-old male history of GI issues in the past chronically seen multiple different physicians he was here 5 days ago complaining of nausea vomiting he states has been having nausea vomiting difficulty tolerating fluids for weeks. He states that he is trying to switch doctors up here he Associated nausea: Yes Associated symtoms: Reports nausea; Denies chest pain, dysuria or headache(s) Review of Systems 2 Const: Denies: fever(s), chills, body aches or change in appetite Eyes: Denies: blurry vision or eye discomfort ENMT: Denies: throat pain or dental pain Card: Denies: chest pain Resp: Denies: dyspnea GI: Reports: nausea and vomiting; Denies: abdominal pain or diarrhea : Denies: dysuria Musc: Denies: neck pain or back pain Skin/Breast: Denies: rash Neuro: Denies: headache(s) PFSH ED 2 PFSH: Medical History Alpha galactosidase deficiency C. difficile colitis Atherosclerosis of coronary artery Medical marijuana use Diverticulosis GERD (gastroesophageal reflux disease) Chronic pancreatitis Urethral stricture COPD (chronic obstructive pulmonary disease) Essential (primary) hypertension Seizure disorder Mixed hyperlipidemia Osteoarthritis rt knee, cervical and Lumbar spine Heart attack Surgical History Status post right knee replacement Status post right knee replacement Hx of reconstruction of anterior cruciate ligament tear H/O neck surgery H/O left knee surgery History of appendectomy History of cholecystectomy H/O right knee surgery H/O chest tube placement H/O removal of testicle Stented coronary artery Family History Brother Parkinson disease Cancer Diabetes Stroke Family/Other Cancer Chronic kidney disease (CKD) Suicide Grandmother CAD (coronary artery disease) Cancer Lung disease Grandfather Dementia Mother Lung disease Father Suicide Denies family history of Clotting disorder Anesthesia complication Bleeding disorder Social History Smoking and tobacco/nicotine status: current every day tobacco/nicotine user cigarettes [ Other cigarette details: Had quit but today picked up again] Quit status (tobacco/nicotine): has tried quititng Alcohol intake: never Substance/Drug Use: current Substance/Drug use frequency: daily Other substance/drug use details: medical card Lives independently: Yes Household members: significant other Current occupational status: disabled Do you think of yourself as: Straight/Heterosexual Current gender identity: Male Physical Exam 2 Const: COMMON NORMALS: no acute distress, patient oriented x3 and healthy appearing HENMT: COMMON NORMALS: normocephalic and atraumatic HEAD & SCALP: n ormocephalic and atraumatic Eye: COMMON NORMALS: Equal, round and reactive pupils present and EOMs intact bilaterally PUPIL: Yes Equal, round and reactive pupils present Neck/C-Spine: COMMON NORMALS: full ROM and supple Chest: COMMONS NORMALS: normal inspection of the chest and normal palpation of entire chest wall Resp: COMMON NORMALS: normal respiratory effort, No retractions, No use of accessory muscles and clear to auscultation bilaterally AUSCULTATION: clear to auscultation bilaterally Cardio: COMMON NORMALS: regular rate, regular rhythm and No murmurs present (Cardio) RATE: regular rate RHYTHM: regular rhythm GI: COMMON NORMALS: Normal to inspection, nondistended, normoactive bowel sounds present, Soft to palpation, non-tender and no masses PALPATION: Yes Soft to palpation Extremity: COMMON NORMALS: normal to inspection and full ROM Neuro: COMMON NORMALS: patient oriented x3, moves all extremities and no focal motor deficits Psych: COMMON NORMALS: mental status grossly normal, Normal thought process present and cooperative THOUGHT PROCESS: Normal thought process present Skin: COMMON NORMALS: no rashes or lesions noted and no wounds GENERAL SKIN EXAM: no rashes or lesions noted Course 2 Vital Signs: Vital signs: Vital Signs Temperature 97.9 F 02/03/24 14:30 Pulse Rate 57 L 02/03/24 14:30 Respiratory Rate 16 02/03/24 14:30 Blood Pressure 157/98 02/03/24 14:30 Pulse Oximetry 99 02/03/24 14:30 MDM - Nausea/Vomiting/Diarrhea Medical Decision Making Patient presents here with nausea vomiting diarrhea has been going on for months. He is well-appearing here abdominal exam is benign he had a recent CT scan 5 days ago showed no acute findings we will get him follow-up with surgery we will prescribe him Reglan he is to return if worsening he understands agrees to plan. Medical Records I reviewed the patient's medical records. Lab Data I reviewed the patient's lab results. 02/03/24 16:13 02/03/24 15:47 Laboratory Results WBC 10.40 10^3/uL (3.29-11.43) 02/03/24 16:13 Corrected WBC Cancelled 02/03/24 15:47 RBC 3.96 10^6/uL (3.85-5.65) 02/03/24 16:13 Hgb 12.70 g/dL (11.27-16.99) 02/03/24 16:13 Hct 37.3 % (37-53) 02/03/24 16:13 MCV 94.2 fl (82-101) 02/03/24 16:13 MCH 32.1 pg (27-33) 02/03/24 16:13 MCHC 34.0 g/dL (30-55) 02/03/24 16:13 RDW 12.3 % (12.1-15.1) 02/03/24 16:13 Plt Count 329 10^3/cmm (157-399) 02/03/24 16:13 MPV 8.8 fL (7.4-10.4) 02/03/24 16:13 Gran % Cancelled 02/03/24 15:47 Neut % (Auto) 78.6 % 02/03/24 16:13 Lymph % (Auto) 15.3 % 02/03/24 16:13 Nance % (Auto) 5.2 % 02/03/24 16:13 Eos % (Auto) 0.1 % 02/03/24 16:13 Baso % (Auto) 0.4 % 02/03/24 16:13 Neut # (Auto) 8.18 10^3/uL (1.8-7.7) H 02/03/24 16:13 Lymph # (Auto) 1.6 10^3/uL (0.8-4.8) 02/03/24 16:13 Nance # (Auto) 0.5 10^3/uL (0.2-0.9) 02/03/24 16:13 Eos # (Auto) 0.0 10^3/uL (0.0-0.8) 02/03/24 16:13 Baso # (Auto) 0.0 10^3/uL (0.0-0.1) 02/03/24 16:13 Absolute Gran (auto) Cancelled 02/03/24 15:47 Nucleated RBC % (auto) 0 % 02/03/24 16:13 Nucleated RBCs # 0.0 /100WBC 02/03/24 16:13 Sodium 129 mmol/L (136-145) L 02/03/24 15:47 Potassium 3.6 mmol/L (3.5-5.1) 02/03/24 15:47 Chloride 97 mmol/L (98-107) L 02/03/24 15:47 Carbon Dioxide 16 mmol/L (22-29) L 02/03/24 15:47 Anion Gap 19.6 (5-19) H 02/03/24 15:47 BUN 16 mg/dL (6-20) 02/03/24 15:47 Creatinine 0.7 mg/dL (0.7-1.2) 02/03/24 15:47 GFR Calculation 118.4 mL/min (90-130) 02/03/24 15:47 Glucose 126 mg/dL (65-115) H 02/03/24 15:47 Calculated Osmolality 271 mOsm/kg (285-295) L 02/03/24 15:47 Calcium 9.2 mg/dL (8.5-10.5) 02/03/24 15:47 Total Bilirubin 0.9 mg/dL (0.15-1.2) 02/03/24 15:47 AST 22 U/L (0-40) 02/03/24 15:47 ALT 11 U/L (0-41) 02/03/24 15:47 Alkaline Phosphatase 179 U/L (40-130) H 02/03/24 15:47 Total Protein 7.5 g/dL (6.6-8.7) 02/03/24 15:47 Albumin 4.3 g/dL (3.5-5.2) 02/03/24 15:47 Globulin 3.2 g/dL (1.3-4.6) 02/03/24 15:47 Lipase 58 U/L (13-60) 02/03/24 15:47 No radiology studies performed this visit Discharge Plan Discharge Patient Disposition: Home Clinical Impression: Nausea and vomiting Condition: Stable Prescriptions: New Reglan 10 mg tablet 10 mg PO Q6H PRN (Reason: nausea and vomiting) Qty: 20 0RF No Action zonisamide 100 mg capsule 200 mg PO BID tamsulosin 0.4 mg capsule 0.4 mg PO QAM albuterol sulfate [ProAir HFA] 90 mcg/actuation HFA aerosol inhaler 2 puff INHALATION Q4H PRN (Reason: Shortness Of Breath) buspirone 30 mg tablet 30 mg PO QAM albuterol sulfate 2.5 mg /3 mL (0.083 %) solution for nebulization 2.5 mg inhalation BID atorvastatin 80 mg tablet 80 mg PO QAM Qty: 90 3RF nicotine 21 mg/24 hr patch 24 hour See Rx Instructions .ROUTE .COMPLEX Qty: 42 0RF Dose Instruction: apply and CHANGE ONE PATCH EVERY DAY FOR SIX weeks Rx Instructions: apply and CHANGE ONE PATCH EVERY DAY FOR SIX weeks (DME) Bone Growth Stimulator See Rx Instructions .Route .MEDSUPPLY Qty: 1 0RF Rx Instructions: As directed hydrocodone-acetaminophen 5-325 mg tablet 1 tab PO Q4H PRN (Reason: pain) 7 Days Qty: 42 0RF pantoprazole 40 mg tablet,delayed release (DR/EC) 40 mg PO BIDWM Qty: 60 0RF quetiapine 50 mg tablet 50 mg PO BEDTIME clonazepam 2 mg tablet 2 mg PO BID PRN (Reason: Anxiety) nitroglycerin [Nitrostat] 0.4 mg Tablet, Sublingual 0.4 mg SUBLINGUAL Q5M PRN (Reason: Chest Pain) Rx Instructions: do not exceed 3 doses per episode ipratropium-albuterol 0.5 mg-3 mg(2.5 mg base)/3 mL solution for nebulization 3 ml INHALATION Q6H PRN (Reason: Shortness Of Breath) budesonide 0.5 mg/2 mL suspension for nebulization 0.5 mg inhalation BID PRN (Reason: copd) fluticasone propion-salmeterol [Advair Diskus] 100-50 mcg/dose blister with device 1 inh INHALATION BID methocarbamol 750 mg tablet 750 mg PO Q6H PRN (Reason: spasms) Qty: 20 0RF Miralax 17 gram/dose powder 17 g PO BID PRN (Reason: constipation) Qty: 238 0RF Milk of Magnesia 400 mg/5 mL suspension 20 ml PO BID PRN (Reason: constipation) Qty: 355 0RF ondansetron HCl 4 mg tablet 4 mg PO Q8H Qty: 30 0RF clopidogrel 75 mg tablet 75 mg PO DAILY Hold Instructions: Resume on 01/09/24. Rx Instructions: TAKE ONE TABLET BY MOUTH DAILY aspirin 81 mg tablet,delayed release (DR/EC) 81 mg PO DAILY Rx Instructions: TAKE 1 TABLET BY MOUTH EVERY MORNING magnesium L-lactate 84 mg tablet extended release 84 mg PO DAILY Rx Instructions: TAKE 1 TABLET BY MOUTH EVERY DAY Discharge Orders: Discharge ED (Routine); Ordered 02/03/24 Ordered By: Mercedes Gaines Referrals: Jr Lund MD [Physician] - 1-3 days Discharge Diet: Advance as tolerated Discharge Activity: Resume usual activity Patient Instructions: Acute Nausea and Vomiting (ED) Coding Level of Care Code ED Chief Medical Officer for [facility] [employer]
[2024-02-03 16:16] LABS: Albumin Level 4.3 g/dL (3.5-5.2); Alkaline Phosphatase 179 U/L (40-130); Blood Urea Nitrogen 16 mg/dL (6-20); Calcium 9.2 mg/dL (8.5-10.5); Carbon Dioxide 16 mmol/L (22-29); Chloride 97 mmol/L (98-107); Creatinine Clr Calc Pharmacy 117.8418; Globulin 3.2 g/dL (1.3-4.6); Glomerular Filtration Rate 118.4 mL/min (90-130); Glucose 126 mg/dL (65-115); Lipase 58 U/L (13-60); Osmolality Calculated 271 mOsm/kg (285-295); Sodium 129 mmol/L (136-145); Total Bilirubin 0.9 mg/dL (0.15-1.2); Total Protein 7.5 g/dL (6.6-8.7)
[2024-02-03 16:17] LABS: Alanine Aminotransferase 11 U/L (0-41); Anion Gap 19.6 (5-19); Aspartate Amino Transferase 22 U/L (0-40); Potassium 3.6 mmol/L (3.5-5.1)
[2024-02-03 16:26] LABS: Basophils % 0.4 %; Eosinophils % 0.1 %; Hematocrit 37.3 % (37-53); Lymphocytes # 1.6 10^3/uL (0.8-4.8); Lymphocytes % 15.3 %; Mean Corpuscular Hemoglobin 32.1 pg (27-33); Mean Corpuscular Volume 94.2 fl (82-101); Mean Platelet Volume 8.8 fL (7.4-10.4); Monocytes # 0.5 10^3/uL (0.2-0.9); Monocytes % 5.2 %; Neutrophils # 8.18 10^3/uL (1.8-7.7); Neutrophils % 78.6 %; Nucleated Red Blood Cells % 0 %; Platelet Count 329 10^3/cmm (157-399); Red Blood Count 3.96 10^6/uL (3.85-5.65); Red Cell Distribution Width 12.3 % (12.1-15.1)
[2024-02-03] MEDS: metoclopramide 5 mg/mL SDV 2 mL 10 MG IVP (17:05)
[2024-02-03] MEDS: diphenhydrAMINE 50 mg/mL SDV 1mL IVP (17:05)
[2024-02-03] MEDS: sodium chloride 0.9% 1,000 ML 999 ML IV ×2 (17:05→17:38)
[2024-02-03 18:36] VITALS: BP 149/83; PULSE 83; O2SAT 100
--- NOTE | 2024-02-04 08:03 | DCPLANNER ---
Message sent to General surgery for follow up
== END 2024-02-03 19:32 | disposition home or self-care (01) ==
PROVIDERS: Emergency Provider Emergency Medicine
DX: R11.2 Nausea with vomiting, unspecified (principal); Z79.02 Long term (current) use of antithrombotics/antiplatelets; Z79.82 Long term (current) use of aspirin; F17.210 Nicotine dependence, cigarettes, uncomplicated; I25.10 Atherosclerotic heart disease of native coronary artery without angina pectoris; J44.9 Chronic obstructive pulmonary disease, unspecified; I10 Essential (primary) hypertension; E78.2 Mixed hyperlipidemia
CPT/HCPCS: 36415; 80053; 83690; 85025; 96361; 96374; 96375; 99284; J1200; J2765; J7030

== ENCOUNTER → 2024-02-06 10:45 | Outpatient (BNVA) | payer MEDICAID, SELFPAY | PROVIDERS: Visit Provider Internal Medicine Cardiovascular Disease | DX: I25.118 Atherosclerotic heart disease of native coronary artery with other forms of angina pectoris (principal); E78.2 Mixed hyperlipidemia; I10 Essential (primary) hypertension; F41.9 Anxiety disorder, unspecified; F32.A Depression, unspecified; I49.8 Other specified cardiac arrhythmias; Z72.0 Tobacco use | CPT/HCPCS: 99214 ==

== ENCOUNTER → 2024-02-07 08:57 | Outpatient (BNVA) | payer MEDICAID, SELFPAY | PROVIDERS: Visit Provider Orthopaedic Surgery | DX: Z98.1 Arthrodesis status (principal); M48.062 Spinal stenosis, lumbar region with neurogenic claudication | CPT/HCPCS: 72100; 99024 ==

== ENCOUNTER → 2024-02-08 11:12 | Outpatient (BNVA) | payer MEDICAID, SELFPAY | PROVIDERS: Referring Provider Emergency Medicine; Visit Provider Surgery | DX: K21.9 Gastro-esophageal reflux disease without esophagitis; K52.9 Noninfective gastroenteritis and colitis, unspecified; R11.2 Nausea with vomiting, unspecified; R10.31 Right lower quadrant pain; R10.32 Left lower quadrant pain | CPT/HCPCS: 99204; 99214 ==

== ENCOUNTER 2024-02-20 13:17 | Emergency (ER) | payer MEDICAID, SELFPAY ==
[2024-02-20 13:35] VITALS: BP 103/71; PULSE 81; RESP 15; TEMP 36.7; O2SAT 99
--- NOTE | 2024-02-20 14:29 | CT_ITS ---
WS: [id number] CT ABDOMEN AND PELVIS WITH CONTRAST HISTORY: abd pain/N/V/D TECHNIQUE: Imaging performed of the abdomen and pelvis with IV contrast. Single phase imaging of the abdomen. Coronal and sagittal reformats are submitted. All CT scans at [facility] use at [address] one of these dose optimization techniques: automated exposure control; mA and/or kV adjustment per patient size (includes targeted exams where dose is matched to clinical indication); or iterative re construction. IV CONTRAST: Omnipaque 350; 100 mL IV. Oral contrast: No DLP: 598.59 mGy.cm COMPARISON: 01/29/2024 Lower thorax: Benign granuloma LEFT lung base. Heart is normal size. No hiatal hernia. Liver/biliary system: Normal size with focal fatty sparing along the falciform ligament. Normal lawrence l vein. Gallbladder: Prior cholecystectomy. Pancreas: Normal size pancreas and pancreatic duct. No adjacent inflammation. Spleen: Normal size spleen. No mass or infarct. Adrenal glands: Normal. Right kidney: Normal size kidney with cortical cysts. No solid mass or obstruction. The largest cyst measures 3.2 x 2.8 cm from the mid kidney. Left kidney: Cortical hypodensities. No obstruction. The hypodensity on the posterior kidney measures 1.0 x 0.9 cm and is actually decreased in size since 01/24/2022. At that time there was a larger cyst present. Nonobstructing calcification lower pole. Aorta: Moderate atherosclerosis with no aneurysm. Lymphadenopathy: None. Free fluid: None. GI tract: Normally distended stomach. No small bowel obstruction. Prior appendectomy. No pericolonic edema. No submucosal edema. Mild diverticular disease in the distal colon. Focal area of very minimal wall thickening involving the ascending colon. Mild sigmoid wall thickening but no definite acute di verticulitis. No obstruction. Abdominal wall: Unremarkable abdominal wall. No hernia. Pelvis: No free fluid. Mild bladder wall thickening is diffuse and probably due to only partial diste ntion. Prostate gland noted with central calcifications. Bones: Interbody disc spacers at L4-5 and L5-S1. Posterior lumbar fusion from L4-S1. CT/CT abdomen pelvis w con* [id number] IMPRESSION: 1. No GI tract obstruction. There is a very subtle area of mild wall thickenin g involving the ascending colon just proximal to the hepatic flexure which shou ld be further evaluated by colonoscopy. 2. Mild distal colon diverticular burden. No evidence for acute diverticulitis . 3. No free fluid or free air. 4. Prior appendectomy. 5. Prior cholecystectomy. 6. No adenopathy.
--- NOTE | 2024-02-20 14:29 | ED_ITS ---
HPI - Nausea/Vomiting/Diarrhea 2 General: Chief complaint: Nausea/Vomiting/Diarrhea Stated complaint: n/v, abd pain, blood in urin Time Seen by Provider: 02/20/24 13:42 Source: patient Mode of arrival: ambulatory Limitations: no limitations History of Present Illness: Patient is a 53-year-old male with multiple complaints over the past few days, also has been seen multiple times in the emergency department over the past few months for similar issues. His complaint today is some lower abdominal pain associated with nausea vomiting and diarrhea, stating his diarrhea did appear to tinged with blood. He also states he has been having some right groin pain, history of testicle removal. Also states he recently underwent a back surgery earlier in December, and is having low back pain. He notes he has not been able to keep down any of his heart medications, and try to get a hold of his panel cutter office but they did not answer. He also states that he was set to have a colonoscopy on February 27, however he canceled this within the past couple of days due to the vomiting as he did not want to take the colonoscopy prep. He is very tangential with his conversation and requests something specifically for pain in his back at this time. No other symptoms reported. MD elicited complaint: nausea, vomiting, diarrhea and abdominal pain Onset (ago): day(s) Description of vomiting: watery Description of diarrhea: blood Associated nausea: Yes Associated abdominal pain: Yes Location of pain: Suprapubic Exacerbating factors: none Relieving factors: none Associated symtoms: Reports nausea; Denies chest pain, diaphoresis, dizziness, dysuria, headache(s) or palpitations Review of Systems 2 General: Reports: 10 or more systems reviewed and unremarkable except in HPI and below Const: Denies: fever(s), chills, change in appetite, change in weight or diaphoresis ENMT: Denies: throat pain or hoarseness Card: Denies: chest pain, palpitations or lightheadedness Resp: Denies: dyspnea, productive cough or wheezing GI: Reports: abdominal pain, nausea, vomiting, diarrhea and hematochezia; Denies: hematemesis or constipation : Reports: scrotal swelling; Denies: flank pain, difficulty urinating, dysuria, urinary frequency or urinary urgency Musc: Reports: back pain; Denies: neck pain Skin/Breast: Denies: rash or new lesions Neuro: Denies: headache(s) or dizziness PFSH ED 2 PFSH: Medical History H. pylori duodenitis Elevated glucose Anxiety and depression Screening for lung cancer Alpha galactosidase deficiency C. difficile colitis Atherosclerosis of coronary artery Medical marijuana use Diverticulosis GERD (gastroesophageal reflux disease) Chronic pancreatitis Urethral stricture COPD (chronic obstructive pulmonary disease) Essential (primary) hypertension Seizure disorder Mixed hyperlipidemia Osteoarthritis rt knee, cervical and Lumbar spine Heart attack Surgical History History of esophagogastroduodenoscopy (EGD) 2021. Showing esophagitis, gastritis, and duodenitis with + H.pylori biopsies History of back surgery Status post right knee replacement Status post right knee replacement Hx of reconstruction of anterior cruciate ligament tear H/O neck surgery H/O left knee surgery History of appendectomy History of cholecystectomy H/O right knee surgery H/O chest tube placement H/O removal of testicle Stented coronary artery Family History Brother Parkinson disease Cancer Diabetes Stroke Family/Other Cancer Chronic kidney disease (CKD) Suicide Grandmother CAD (coronary artery disease) Cancer Lung disease Grandfather Dementia Mother Lung disease Father Suicide Denies family history of Clotting disorder Anesthesia complication Bleeding disorder Social History Smoking and tobacco/nicotine status: current every day tobacco/nicotine user cigarettes [ Other cigarette details: Had quit but today picked up again] Quit status (tobacco/nicotine): has tried quititng Alcohol intake: never Substance/Drug Use: current Substance/Drug use frequency: daily Other substance/drug use details: medical card Lives independently: Yes Household members: significant other service: No Current occupational status: disabled Current occupational exposures/hazards: Yes Do you think of yourself as: Straight/Heterosexual Current gender identity: Male Physical Exam 2 Const: COMMON NORMALS: no acute distress, patient oriented x3 and no limitations GENERAL APPEARANCE: cooperative, comfortable and well developed ORIENTATION/CONSCIOUSNESS: Yes awake, Yes oriented to person, Yes oriented to place and Yes oriented to time HENMT: COMMON NORMALS: normocephalic, atraumatic and hearing grossly normal bilaterally HEAD & SCALP: normocephalic and atraumatic Eye: COMMON NORMALS: Equal, round and reactive pupils present, EOMs intact bilaterally and conjunctivae normal CONJUNCTIVA: Yes conjunctivae normal P UPIL: Yes Equal, round and reactive pupils present Neck/C-Spine: COMMON NORMALS: full ROM, supple and no JVD Resp: COMMON NORMALS: normal respiratory effort, No retractions, No use of accessory muscles and clear to auscultation bilaterally AUSCULTATION: clear to auscultation bilaterally Cardio: COMMON NORMALS: no JVD, regular rate, regular rhythm, No clicks present (Cardio), No murmurs present (Cardio) and No rub (Cardio) RATE: r egular rate RHYTHM: regular rhythm GI: COMMON NORMALS: Normal to inspection, nondistended, normoactive bowel sounds present and Soft to palpation AUSCULTATION: Yes normoactive bowel sounds PALPATION: Yes Soft to palpation RECTAL EXAM: Yes deferred O THER: Mild reproducible diffuse tenderness to palpation Extremity: COMMON NORMALS: normal to inspection, full ROM and capillary refill normal Neuro: COMMON NORMALS: patient oriented x3, moves all extremities, no focal motor deficits and no sensory deficits noted SENSORIUM/ORIENTATION: Yes oriented to person, Yes oriented to place and Yes oriented to time Psych: COMMON NORMALS: mental status grossly normal THOUGHT PROCESS: T angential thought process present Skin: COMMON NORMALS: no rashes or lesions noted GENERAL SKIN EXAM: no rashes or lesions noted Course 2 Vital Signs: Vital signs: Vital Signs Temperature 98.1 F 02/20/24 13:35 Pulse Rate 77 02/20/24 16:00 Respiratory Rate 15 02/20/24 13:35 Blood Pressure 121/90 02/20/24 16:00 Pulse Oximetry 100 02/20/24 16:00 Oxygen Delivery Me thod Room Air 02/20/24 16:00 MDM - Nausea/Vomiting/Diarrhea Medical Decision Making Patient presented to the ER for the same complaint he has had multiple times in the past, nausea and vomiting with some lower abdominal pain. He was set to undergo a colonoscopy however states that he canceled this. Initially stated it was because he did not think he could hold down the colonoscopy prep, but then changed story to it was because he could not get cardiac clearance by his panel cutter. He states that he had been trying to call them, however they had not been getting back with him. He states that his symptoms have continued since his last ED visit approximately a month ago. He notes he has not been taking his medications because he cannot keep them down. His vitals normal on arrival and has remained stable throughout the ED course. Exam revealed some mild tenderness to palpation, however all of his labs appeared unchanged from prior, his urine will be cultured for further evaluation. CT of the abdomen and pelvis did not demonstrate any signs of obstruction and they did note an area of edema that was recommended to be evaluated with a colonoscopy. I again reiterated to the patient that he needs to follow-up for colonoscopy, and that we will give him another dose of pain meds and nausea medication before discharging him back home. I did inform him to himself contact cardiology if he does indeed need cardiac clearance, however this is unknown if this is true at this time. He will continue his follow-up for scheduled colonoscopy and continue his medications at home. He has not had any episodes of vomiting here in the emergency department. He is additionally given a p.o. challenge with pain medication prior to discharge and he does keep this down along with Sprite. This case discussed with Dr. Gaines who is familiar with the patient and agrees with discharge at this time. Lab Data 02/20/24 15:00 02/20/24 15:00 Radiology Impressions Abdomen/Pelvis CT 02/20/24 14:29 IMPRESSION: 1. No GI tract obstruction. There is a very subtle area of mild wall thickening involving the ascending colon just proximal to the hepatic flexure which should be further evaluated by colonoscopy. 2. Mild distal colon diverticular burden. No evidence for acute diverticulitis. 3. No free fluid or free air. 4. Prior appendectomy. 5. Prior cholecystectomy. 6. No adenopathy. Laboratory Results WBC 9.06 10^3/uL (3.29-11.43) 02/20/24 15:00 RBC 3.74 10^6/uL (3.85-5.65) L 02/20/24 15:00 Hgb 11.80 g/dL (11.27-16.99) 02/20/24 15:00 Hct 35.7 % (37-53) L 02/20/24 15:00 MCV 95.5 fl (82-101) 02/20/24 15:00 MCH 31.6 pg (27-33) 02/20/24 15:00 MCHC 33.1 g/dL (30-55) 02/20/24 15:00 RDW 12.3 % (12.1-15.1) 02/20/24 15:00 Plt Count 339 10^3/cmm (157-399) 02/20/24 15:00 MPV 8.7 fL (7.4-10.4) 02/20/24 15:00 Neut % (Auto) 66.2 % 02/20/24 15:00 Lymph % (Auto) 25.6 % 02/20/24 15:00 [place] % (Auto) 6.6 % 02/20/24 15:00 Eos % (Auto) 0.7 % 02/20/24 15:00 Baso % (Auto) 0.6 % 02/20/24 15:00 Neut # (Auto) 6.00 10^3/uL (1.8-7.7) 02/20/24 15:00 Lymph # (Auto) 2.3 10^3/uL (0.8-4.8) 02/20/24 15:00 [place] # (Auto) 0.6 10^3/uL (0.2-0.9) 02/20/24 15:00 Eos # (Auto) 0.1 10^3/uL (0.0-0.8) 02/20/24 15:00 Baso # (Auto) 0.1 10^3/uL (0.0-0.1) 02/20/24 15:00 Nucleated RBC % (auto) 0 % 02/20/24 15:00 Nucleated RBCs # 0.0 /100WBC 02/20/24 15:00 Sodium 137 mmol/L (136-145) 02/20/24 15:00 Potassium 3.2 mmol/L (3.5-5.1) L 02/20/24 15:00 Chloride 101 mmol/L (98-107) 02/20/24 15:00 Carbon Dioxide 21 mmol/L (22-29) L 02/20/24 15:00 Anion Gap 18.2 (5-19) 02/20/24 15:00 BUN 15 mg/dL (6-20) 02/20/24 15:00 Creatinine 0.8 mg/dL (0.7-1.2) 02/20/24 15:00 GFR Calculation 101.5 mL/min (90-130) 02/20/24 15:00 Glucose 96 mg/dL (65-115) 02/20/24 15:00 Calculated Osmolality 285 mOsm/kg (285-295) 02/20/24 15:00 Calcium 9.1 mg/dL (8.5-10.5) 02/20/24 15:00 Total Bilirubin 0.9 mg/dL (0.15-1.2) 02/20/24 15:00 AST 14 U/L (0-40) 02/20/24 15:00 ALT 11 U/L (0-41) 02/20/24 15:00 Alkaline Phosphatase 123 U/L (40-130) 02/20/24 15:00 Total Protein 7.1 g/dL (6.6-8.7) 02/20/24 15:00 Albumin 4.3 g/dL (3.5-5.2) 02/20/24 15:00 Globulin 2.8 g/dL (1.3-4.6) 02/20/24 15:00 Lipase 38 U/L (13-60) 02/20/24 15:00 Urine Color Yellow (Yellow) 02/20/24 15:01 Urine Appearance Slightly cloudy (CLEAR) 02/20/24 15:01 Urine pH 5 (5-7) 02/20/24 15:01 Ur Specific [place] 1.020 (1.005-1.030) 02/20/24 15:01 Urine Protein Trace (Negative) 02/20/24 15:01 Urine Glucose (UA) Norm (Normal) 02/20/24 15:01 Urine Ketones 1+ (Negative) H 02/20/24 15:01 Urine Blood 3+ (Negative) H 02/20/24 15:01 Urine Nitrate Negative (Negative) 02/20/24 15:01 Urine Bilirubin 1+ (Negative) H 02/20/24 15:01 Urine Urobilinogen 8 mg/dL (Negative) H 02/20/24 15:01 Ur Leukocyte Esterase Trace (Negative) H 02/20/24 15:01 Urine RBC 5-10 /hpf (0-2) H 02/20/24 15:01 Urine WBC 5-10 /hpf (0-5) H 02/20/24 15:01 Ur Squamous Epith Cells 10-15 /hpf (0-5) H 02/20/24 15:01 Calcium Oxalate Crystal 0-4 /hpf H 02/20/24 15:01 Amorphous Sediment Not Reportable 02/20/24 15:01 Urine Bacteria 1+ /hpf (NONE) H 02/20/24 15:01 Urine Mucus 1+ /hpf 02/20/24 15:01 All radiology interpretation(s) finalized by discharge Discharge Plan Discharge Patient Disposition: Home Clinical Impression: Nausea & vomiting Qualifiers: Vomiting type: unspecified Qualified Code(s): R11.2 - Nausea with vomiting, unspecified Condition: Stable Prescriptions: No Action tamsulosin 0.4 mg capsule 0.4 mg PO QAM buspirone 30 mg tablet 30 mg PO QAM albuterol sulfate 2.5 mg /3 mL (0.083 %) solution for nebulization 2.5 mg inhalation BID nitroglycerin 0.4 mg tablet, sublingual 0.4 mg sublingual Q5M PRN (Reason: chest pain) 30 Days Qty: 30 3RF Rx Instructions: until response; do not exceed 3 doses per episode ondansetron 8 mg tablet,disintegrating 8 mg PO Q8H PRN (Reason: nausea and vomiting) Qty: 30 1RF pantoprazole 40 mg tablet,delayed release (DR/EC) 40 mg PO BID 42 Days Qty: 84 1RF zonisamide 100 mg capsule 200 mg PO BID Qty: 60 2RF albuterol sulfate [ProAir HFA] 90 mcg/actuation HFA aerosol inhaler 2 puff INHALATION Q4H PRN (Reason: Shortness Of Breath) Qty: 6.7 0RF fluticasone propion-salmeterol [Advair Diskus] 100-50 mcg/dose blister with device 1 inh INHALATION BID Qty: 60 0RF quetiapine 50 mg tablet 50 mg PO BEDTIME Qty: 30 2RF atorvastatin 80 mg tablet 80 mg PO QAM Qty: 90 3RF nicotine 21 mg/24 hr patch 24 hour See Rx Instructions .ROUTE .COMPLEX Qty: 42 0RF Dose Instruction: apply and CHANGE ONE PATCH EVERY DAY FOR SIX weeks Rx Instructions: apply and CHANGE ONE PATCH EVERY DAY FOR SIX weeks (DME) Bone Growth Stimulator See Rx Instructions .Route .MEDSUPPLY Qty: 1 0RF Rx Instructions: As directed clonazepam 2 mg tablet 2 mg PO BID PRN (Reason: Anxiety attacks) 30 Days Qty: 60 2RF hydrocodone-acetaminophen 5-325 mg tablet 1 tab PO Q4H PRN (Reason: pain) 7 Days Qty: 42 0RF nitroglycerin [Nitrostat] 0.4 mg Tablet, Sublingual 0.4 mg SUBLINGUAL Q5M PRN (Reason: Chest Pain) Rx Instructions: do not exceed 3 doses per episode ipratropium-albuterol 0.5 mg-3 mg(2.5 mg base)/3 mL solution for nebulization 3 ml INHALATION Q6H PRN (Reason: Shortness Of Breath) budesonide 0.5 mg/2 mL suspension for nebulization 0.5 mg inhalation BID PRN (Reason: copd) methocarbamol 750 mg tablet 750 mg PO Q6H PRN (Reason: spasms) Qty: 20 0RF Miralax 17 gram/dose powder 17 g PO BID PRN (Reason: constipation) Qty: 238 0RF Milk of Magnesia 400 mg/5 mL suspension 20 ml PO BID PRN (Reason: constipation) Qty: 355 0RF ondansetron HCl 4 mg tablet 4 mg PO Q8H Qty: 30 0RF clopidogrel 75 mg tablet 75 mg PO DAILY Hold Instructions: Resume on 01/09/24. Rx Instructions: TAKE ONE TABLET BY MOUTH DAILY aspirin 81 mg tablet,delayed release (DR/EC) 81 mg PO DAILY Rx Instructions: TAKE 1 TABLET BY MOUTH EVERY MORNING magnesium L-lactate 84 mg tablet extended release 84 mg PO DAILY Rx Instructions: TAKE 1 TABLET BY MOUTH EVERY DAY Reglan 10 mg tablet 10 mg PO Q6H PRN (Reason: nausea and vomiting) Qty: 20 0RF Discharge Orders: Discharge ED (Routine); Ordered 02/20/24 Ordered By: Jr Jenkins Referrals: Lisa Rivera NP [Primary Care Provider] - Discharge Diet: As Directed Discharge Activity: Increase activity as tolerated Patient Instructions: Acute Nausea and Vomiting (ED), Colonoscopy (DC) Activity Restrictions/Additional Instructions: Please continue scheduled follow-up for colonoscopy as planned. Clear liquid diet at home. Continue taking your nausea medications you already have at home and continue other medications as prescribed. Please increase your fluid intake. Follow-up with your primary care provider and return with any new or worsening symptoms. Coding Level of Care Code ED [place] for [facility] [place]
[2024-02-20] MEDS: sodium chloride 0.9% 1,000 ML 999 ML IV (14:54)
[2024-02-20] MEDS: ondansetron 2 mg/ML SDV 2 mL 4 MG IVP ×2 (14:56→18:01)
[2024-02-20] MEDS: ketorolac 60 mg/2 mL INJ 30 MG IVP (14:56)
[2024-02-20] MEDS: iohexol 350 mg/mL 500 mL Btl (per mL) IV (15:24)
[2024-02-20 15:55] LABS: Add Urine Microscopic? YES; Blood Urine 3+ (Negative); Glucose Urine UA Norm (Normal); Ketones Urine 1+ (Negative); Leukocyte Esterase Urine Trace (Negative); Nitrate Urine Negative (Negative); Protein Urine Trace (Negative); Urine Appearance Slightly Cloudy (CLEAR); Urine Color Yellow (Yellow); pH Urine 5 (5-7)
[2024-02-20 15:56] LABS: Bacteria Urine 1+ /hpf; Bilirubin Urine 1+ (Negative); Calcium Oxalate Crystals Urine 0-4 /hpf; Mucus Urine 1+ /hpf; Urobilinogen Urine 8 mg/dL (Negative)
[2024-02-20 15:57] LABS: Add Urine Culture? No
[2024-02-20 16:00] VITALS: BP 121/90; PULSE 77; O2SAT 100
[2024-02-20 16:49] LABS: Basophils # 0.1 10^3/uL (0.0-0.1); Basophils % 0.6 %; Eosinophils # 0.1 10^3/uL (0.0-0.8); Eosinophils % 0.7 %; Hematocrit 35.7 % (37-53); Lymphocytes # 2.3 10^3/uL (0.8-4.8); Lymphocytes % 25.6 %; Mean Corpuscular HGB Conc 33.1 g/dL (30-55); Mean Corpuscular Hemoglobin 31.6 pg (27-33); Mean Corpuscular Volume 95.5 fl (82-101); Mean Platelet Volume 8.7 fL (7.4-10.4); Monocytes # 0.6 10^3/uL (0.2-0.9); Monocytes % 6.6 %; Neutrophils % 66.2 %; Nucleated Red Blood Cells % 0 %; Platelet Count 339 10^3/cmm (157-399); Red Blood Count 3.74 10^6/uL (3.85-5.65); Red Cell Distribution Width 12.3 % (12.1-15.1); White Blood Count 9.06 10^3/uL (3.29-11.43)
[2024-02-20 17:12] LABS: Alanine Aminotransferase 11 U/L (0-41); Albumin Level 4.3 g/dL (3.5-5.2); Alkaline Phosphatase 123 U/L (40-130); Anion Gap 18.2 (5-19); Aspartate Amino Transferase 14 U/L (0-40); Blood Urea Nitrogen 15 mg/dL (6-20); Calcium 9.1 mg/dL (8.5-10.5); Carbon Dioxide 21 mmol/L (22-29); Chloride 101 mmol/L (98-107); Creatinine Clr Calc Pharmacy 104.4976; Globulin 2.8 g/dL (1.3-4.6); Glomerular Filtration Rate 101.5 mL/min (90-130); Glucose 96 mg/dL (65-115); Lipase 38 U/L (13-60); Osmolality Calculated 285 mOsm/kg (285-295); Potassium 3.2 mmol/L (3.5-5.1); Sodium 137 mmol/L (136-145); Total Bilirubin 0.9 mg/dL (0.15-1.2); Total Protein 7.1 g/dL (6.6-8.7)
[2024-02-20] MEDS: HYDROcodone-acetaminophen 7.5-325 mg Tablet 1 TAB PO (18:00)
[2024-02-20 18:22] VITALS: BP 121/83; PULSE 75; RESP 16; TEMP 36.7; O2SAT 99
== END 2024-02-20 18:21 | disposition home or self-care (01) ==
PROVIDERS: Emergency Medicine; Emergency Provider Physician Assistant
DX: R11.2 Nausea with vomiting, unspecified (principal); Z79.02 Long term (current) use of antithrombotics/antiplatelets; Z79.82 Long term (current) use of aspirin; F17.210 Nicotine dependence, cigarettes, uncomplicated; I25.10 Atherosclerotic heart disease of native coronary artery without angina pectoris; J44.9 Chronic obstructive pulmonary disease, unspecified; I10 Essential (primary) hypertension; E78.2 Mixed hyperlipidemia; I25.2 Old myocardial infarction
CPT/HCPCS: 74177; 80053; 81001; 83690; 85025; 96374; 96375; 96376; 99285; J1885; J2405; J7030; Q9967

== ENCOUNTER 2024-02-29 07:58 | Outpatient (CLI) | payer MEDICAID, SELFPAY ==
[2024-02-29 08:10] VITALS: BMI 28.2
--- NOTE | 2024-02-29 08:13 | ECG_ITS ---
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 Interpretive Statements NAME OF STUDY: LEXISCAN SESTAMIBI STRESS TEST INDICATION: [Chest Pain] Procedure: At the baseline, the blood pressure was 137/68 mmHg with a heart rate of 59 bpm. The electrocardiogram showed normal sinus rhythm, normal axis with normal ST and T's. The Lexiscan was infused over a period of 20 seconds. A total of 0.4 mg of Lexiscan was infused. The stress phase was continued for a total of 5 minutes. Heart rate was at the end of stress phase was 83 bpm and a blood pressure of 98/65 mmHg. The EKG at the peak infusion revealed normal sinus rhythm with no significant ST-T wave changes. Sestamibi was injected 20 seconds after the Lexiscan infusion. Blood pressure at the end of recovery phase was 106/63 mmHg with a heart rate of 101 bpm. Conclusion: 1. Normal EKG response to Lexiscan infusion 2. No Lexiscan induced chest pain or cardiac arrhythmia. 3. Normal blood pressure and heart rate response. 4. Sestamibi/sestamibi perfusion scan pending; see separate report. Electronically Signed On 03-09-2024 21:00:47 CDT by Can Callejas M.D. [email or web address]
--- NOTE | 2024-02-29 08:14 | NMCV_ITS ---
NM leonila perf SPECT r/s* [id number] Josue Cheng Age: 53 Gender: M : 1970 Exam Date: 02/29/2024 08:14 Ordering Phys: Placido Garza MD ([email or web address]) Technologist: ANTONINO Thompson Exam Location: [facility] Indications: Chest and back pain STRESS TEST [facility] IMAGE PROTOCOL Rest/Stress 1 Lexiscan Day Radiopharmaceutical Dose (mCi) Administration Site Administered by Rest: Tc-99m 10.9 IV ANTONINO Thompson Sestamibi Stress:Tc-99m 32.4 IV ANTONINO Thompson Sestamibi Rest: 29-Feb-2024 60 Discovery 630 Stress: 29-Feb-2024 30 Discovery 630 0.4mg Lexiscan. Supine position only as patient was unable to lay prone. SPECT RESULTS Technical Quality: Raw Data Analysis: Image Corrections: Summed Stress Score: 0 Summed Rest Score: 2 Summed Difference Score: 0 PERFUSION FINDINGS SPECT images demonstrate homogeneous tracer distribution throughout the myocardium. FUNCTIONAL RESULTS (calculated via Gated SPECT) Stress Image LV EF (%): 61 Stress EDV (mL):119 TID: 1.11 Stress ESV (mL):46 FUNCTIONAL FINDINGS: There is normal left ventricular systolic function. IMPRESSIONS 1. Normal myocardial perfusion imaging with no evidence of ischemia. 2. LV systolic function is normal. Can Callejas MD (Electronically Signed) Final Date: 04 March 2024 17:26 S
[2024-02-29] MEDS: regadenoson 0.4 Mg/5 ml Syringe IVP (10:25)
[2024-02-29 10:44] VITALS: BP 106/63; PULSE 69
== END 2024-02-29 07:59 | disposition home or self-care (01) ==
PROVIDERS: Visit Provider Internal Medicine Cardiovascular Disease
DX: Z98.61 Coronary angioplasty status (principal)
CPT/HCPCS: 36415; 78452; 93017; 96374; A9500; J2785

== ENCOUNTER → 2024-03-18 08:01 | Outpatient (BNVA) | payer MEDICAID, SELFPAY | PROVIDERS: Visit Provider Orthopaedic Surgery | DX: Z98.1 Arthrodesis status (principal); Z47.89 Encounter for other orthopedic aftercare | CPT/HCPCS: 72100; 99024; 99213 ==

== ENCOUNTER 2024-04-07 12:01 | Outpatient (RCR) | payer MEDICAID, SELFPAY | END 2024-04-28 23:59 | disposition home or self-care (01) | LOC: SPT 12:01 | PROVIDERS: Visit Provider Orthopaedic Surgery | DX: M54.9 Dorsalgia, unspecified (principal); G89.29 Other chronic pain | CPT/HCPCS: 97161 ==

== ENCOUNTER → 2024-04-16 15:20 | Outpatient (BNVA) | payer MEDICAID, SELFPAY | DX: I10 Essential (primary) hypertension (principal) | CPT/HCPCS: 80053; 84443; 85025 ==

== ENCOUNTER 2024-04-20 07:59 | Inpatient (IN) | payer MEDICAID, SELFPAY ==
[2024-04-20] VITALS (8 sets, daily range): BP systolic 115–169; BP diastolic 75–101; PULSE 64–81; RESP 16–18; TEMP 36.7–36.8; O2SAT 93–98; BMI 25.8; BMI 24.8
--- NOTE | 2024-04-20 08:32 | ED_ITS ---
HPI - Abdominal Pain 2 General: Chief Complaint: Abdominal Pain Stated Complaint: vomiting, dizzy, weak, not ate Time Seen by Provider: 04/20/24 08:15 History of Present Illness: 53-year-old man who presents emergency r oom with recurrent abdominal pain, lack of appetite, nausea and vomiting. He says this started about 4 days ago. Has been worsening. Medications not helping. He has had numerous episodes of this in the past. No clear cause he says. He does smoke marijuana. He says the last time he smoked was 4 days ago however. Pain is diffuse. Crampy. No diarrhea. No chest pain. No shortness of breath. No fevers. No altered mental status. No focal motor deficits. Related Data Home Medications Medication Instructions Recorded Confirmed tamsulosin 0.4 mg capsule 0.4 mg PO QAM 08/22/19 04/16/24 buspirone 30 mg tablet 30 mg PO QAM 01/05/22 04/16/24 nitroglycerin 0.4 mg sublingual 0.4 mg sublingual Q5M PRN Chest 05/05/22 04/16/24 tablet (Nitrostat) Pain albuterol sulfate 2.5 mg/3 mL 2.5 mg inhalation BID 03/14/23 04/16/24 (0.083 %) solution for nebulization budesonide 0.5 mg/2 mL suspension 0.5 mg inhalation BID PRN copd 05/28/23 04/16/24 for nebulization ipratropium 0.5 mg-albuterol 3 mg 3 ml inhalation Q6H PRN Shortness 05/28/23 04/16/24 (2.5 mg base)/3 mL nebulization Of Breath soln aspirin 81 mg tablet,delayed 81 mg PO DAILY 01/04/24 04/16/24 release clopidogrel 75 mg tablet 75 mg PO DAILY 01/04/24 04/16/24 magnesium L-lactate 84 mg 84 mg PO DAILY 01/04/24 03/18/24 tablet,extended release Previous Rx's Medication Instructions Recorded atorvastatin 80 mg tablet 80 mg PO QAM #90 tabs 10/02/23 nicotine 21 mg/24 hr daily See Rx Instructions .Route 12/05/23 transdermal patch .COMPLEX #42 patches methocarbamol 750 mg tablet 750 mg PO Q6H PRN spasms #20 tabs 12/14/23 Bone Growth Stimulator #1 ea 01/04/24 magnesium hydroxide 400 mg/5 mL 20 ml PO BID PRN constipation #355 01/12/24 oral suspension (Milk of Magnesia) mL polyethylene glycol 3350 17 17 g PO BID PRN constipation #238 01/12/24 gram/dose oral powder (Miralax) grams ondansetron HCl 4 mg tablet 4 mg PO Q8H #30 tabs 01/29/24 metoclopramide HCl 10 mg tablet 10 mg PO Q6H PRN nausea and 02/03/24 (Reglan) vomiting #20 tabs albuterol sulfate 90 mcg/actuation 2 puff inhalation Q4H PRN 02/05/24 aerosol inhaler (ProAir HFA) Shortness Of Breath #6.7 grams clonazepam 2 mg tablet 2 mg PO BID PRN Anxiety attacks 30 02/05/24 days #60 tabs fluticasone 100 mcg-salmeterol 50 1 inh inhalation BID #60 ea 02/05/24 mcg/dose blistr powdr for inhalation (Advair Diskus) quetiapine 50 mg tablet 50 mg PO BEDTIME #30 tabs 02/05/24 zonisamide 100 mg capsule 200 mg (2 x 100 mg) PO BID #60 caps 02/05/24 nitroglycerin 0.4 mg sublingual 0.4 mg sublingual Q5M PRN chest 02/06/24 tablet pain 30 days #30 tabs pantoprazole 40 mg tablet,delayed 40 mg PO BID 6 weeks #84 tabs 02/08/24 release hydrocodone 5 mg-acetaminophen 325 1 tab PO Q4H PRN pain 7 days #42 04/15/24 mg tablet tabs sertraline 25 mg tablet 25 mg PO DAILY #30 tabs 04/16/24 Allergies Allergy/AdvReac Type Severity Reaction Status Date / Time meperidine [From Demerol] Allergy Severe ALGY-Hives Verified 04/16/24 14:56 Alpha-Gal Allergy upset GI Verified 04/16/24 14:56 (Jqcguscox-Ivabd-4,3-Gala [Dwlvrvjcy-Cglxz-0,3-Galactose (Alph] gabapentin AdvReac Severe ADR-Seizure Verified 04/16/24 14:56 morphine AdvReac Severe ALGY-Hives Verified 04/16/24 14:56 tramadol AdvReac Severe ADR-Seizure Verified 04/16/24 14:56 Review of Systems 2 Narrative: Constitutional symptoms: Negative except as documented in HPI. Skin symptoms: Negative except as documented in HPI. Eye symptoms: Negative except as documented in HPI. ENMT symptoms: Negative except as documented in HPI. Respiratory symptoms: Negative except as documented in HPI. Cardiovascular symptoms: Negative except as documented in HPI. Gastrointestinal symptoms: Negative except as documented in HPI. Genitourinary symptoms: Negative except as documented in HPI. Musculoskeletal symptoms: Negative except as documented in HPI. Neurologic symptoms: Negative except as documented in HPI. Psychiatric symptoms: Negative except as documented in HPI. Endocrine symptoms: Negative except as documented in HPI. PFSH ED 2 PFSH: Medical History H. pylori duodenitis Elevated glucose Anxiety and depression Screening for lung cancer Alpha galactosidase deficiency C. difficile colitis Atherosclerosis of coronary artery Medical marijuana use Diverticulosis GERD (gastroesophageal reflux disease) Chronic pancreatitis Urethral stricture COPD (chronic obstructive pulmonary disease) Essential (primary) hypertension Seizure disorder Mixed hyperlipidemia Osteoarthritis rt knee, cervical and Lumbar spine Heart attack Surgical History History of esophagogastroduodenoscopy (EGD) 2021. Showing esophagitis, gastritis, and duodenitis with + H.pylori biopsies History of back surgery Status post right knee replacement Status post right knee replacement Hx of reconstruction of anterior cruciate ligament tear H/O neck surgery H/O left knee surgery History of appendectomy History of cholecystectomy H/O right knee surgery H/O chest tube placement H/O removal of testicle Stented coronary artery Family History Brother Parkinson disease Cancer Diabetes Stroke Family/Other Cancer Chronic kidney disease (CKD) Suicide Grandmother CAD (coronary artery disease) Cancer Lung disease Grandfather Dementia Mother Lung disease Father Suicide Denies family history of Clotting disorder Anesthesia complication Bleeding disorder Social History Smoking and tobacco/nicotine status: current every day tobacco/nicotine user cigarettes [ Other cigarette details: Had quit but today picked up again] Quit status (tobacco/nicotine): has tried quititng Alcohol intake: never Substance/Drug Use: current Substance/Drug use frequency: daily Other substance/drug use details: medical card Lives independently: Yes Household members: significant other service: No Current occupational status: disabled Current occupational exposures/hazards: Yes Do you think of yourself as: Straight/Heterosexual Current gender identity: Male Physical Exam 2 Narrative: EXAM NARRATIVE: General: Alert, no acute distress. Skin: Warm, dry. Head: Normocephalic, atraumatic. Neck: Supple, trachea midline. Eye: Extraocular movements are intact. Ears, nose, mouth and throat: Tacky oral mucosa Cardiovascular: Regular, Normal peripheral perfusion. Respiratory: Lungs are clear to auscultation, respirations are non-labored, breath sounds are equal, Symmetrical chest wall expansion. Gastrointestinal: Soft, mild diffuse pain, Non distended Musculoskeletal: Normal ROM, no deformity. Neurological: Alert and oriented, No focal neurological deficit observed. Psychiatric: Cooperative, appropriate mood & affect. Course 2 Vital Signs: Vital signs: Vital Signs Temperature 98.1 F 04/20/24 08:10 Pulse Rate 68 04/20/24 13:04 Respiratory Rate 18 04/20/24 08:10 Blood Pressure 149/100 04/20/24 13:04 Pulse Oximetry 93 04/20/24 13:04 Oxygen Delivery Me thod Room Air 04/20/24 13:04 MDM - Abdominal Pain Medical Decision Making Medical decision making: Differential diagnosis for this patient with nausea and vomiting including but not limited to and based on the above HPI, review of systems and physical exam: Urinary tract infection. Appendicitis. Cholecystis. colitis. small bowel obstruction. crohn's flare. pancreatitis. gastritis. peptic ulcer. cyclic vomiting. Viral illness. Influenza. COVID. - Workup - labwork and imaging ordered to evaluate, rule in and rule out above pathologies. Lab Review: Laboratory results were reviewed and interpreted by myself the emergency room physician. Significant leukocytosis with a white count of 21,000. No anemia. Hemoglobin 16.7. Sodium is low at 125. CRP is negative. Lactate is slightly elevated at 2.6. Acute renal failure with a BUN/creatinine of 39 and 2.6. He normally has a baseline of around 1 on his creatinine. Lipase is normal liver enzymes are normal urinalysis shows no signs of infection. CT of the abdomen pelvis without contrast. No acute findings. No bowel obstruction. Diverticulosis without diverticulitis. This was reviewed and interpreted by myself the emergency room physician. I also reviewed the radiology report. I reviewed the patient's medical record. Reexamination: Patient remained stable. No increased work of breathing. No altered mental status. No focal motor deficits. Consultation: I spoke with Dr. Tena who agrees to admission to observation. Assessment and plan: Vomiting Acute renal failure Hyponatremia Marijuana use Dehydration ?2 L normal saline bolus in the emergency room ? IV Zofran -I discussed the patient with the hospitalist on-call who is admitting the patient. - Discussed findings and plan with patient. Answered any questions. - All laboratory values were reviewed and interpreted personally by myself, the ER physician - All imaging was reviewed and interpreted personally by myself, the ER physician. - Evaluation and treatment of this problem were appropriate in the emergency setting Lab Data 04/20/24 08:35 04/20/24 08:35 Labs/Radiology: Radiology Impressions Abdomen/Pelvis CT 04/20/24 08:50 IMPRESSION: 1. No acute intra-abdominal findings 2. No mechanical bowel obstruction. 3. Diverticulosis without any evidence of acute diverticulitis. COMMENTS: Consistent with the [employer]'s Incidental Findings Committee white paper (J Am Diane Radiol 2018): Any incidental renal lesion less than 1 cm or classified as too small to characterize, or any incidental cystic renal lesion characterized as simple-appearing, is likely benign. No follow-up imaging is recommended for these lesions per consensus recommendations based on imaging criteria. Laboratory Results WBC 20.98 10^3/uL (3.29-11.43) H 04/20/24 08:35 RBC 5.36 10^6/uL (3.85-5.65) 04/20/24 08:35 Hgb 16.70 g/dL (11.27-16.99) 04/20/24 08:35 Hct 47.4 % (37-53) 04/20/24 08:35 MCV 88.4 fl (82-101) 04/20/24 08:35 MCH 31.2 pg (27-33) 04/20/24 08:35 MCHC 35.2 g/dL (30-55) 04/20/24 08:35 RDW 13.1 % (12.1-15.1) 04/20/24 08:35 Plt Count 391 10^3/cmm (157-399) 04/20/24 08:35 MPV 8.7 fL (7.4-10.4) 04/20/24 08:35 Neut % (Auto) 77.3 % 04/20/24 08:35 Lymph % (Auto) 14.8 % 04/20/24 08:35 Hardy % (Auto) 6.8 % 04/20/24 08:35 Eos % (Auto) 0.1 % 04/20/24 08:35 Baso % (Auto) 0.3 % 04/20/24 08:35 Neut # (Auto) 16.22 10^3/uL (1.8-7.7) H 04/20/24 08:35 Lymph # (Auto) 3.1 10^3/uL (0.8-4.8) 04/20/24 08:35 Hardy # (Auto) 1.4 10^3/uL (0.2-0.9) H 04/20/24 08:35 Eos # (Auto) 0.0 10^3/uL (0.0-0.8) 04/20/24 08:35 Baso # (Auto) 0.1 10^3/uL (0.0-0.1) 04/20/24 08:35 Nucleated RBC % (auto) 0 % 04/20/24 08:35 Nucleated RBCs # 0.0 /100WBC 04/20/24 08:35 Sodium 125 mmol/L (136-145) L 04/20/24 08:35 Potassium 3.5 mmol/L (3.5-5.1) 04/20/24 08:35 Chloride 89 mmol/L (98-107) L 04/20/24 08:35 Carbon Dioxide 13 mmol/L (22-29) L 04/20/24 08:35 Anion Gap 26.5 (5-19) H 04/20/24 08:35 BUN 39 mg/dL (6-20) H 04/20/24 08:35 Creatinine 2.6 mg/dL (0.7-1.2) H 04/20/24 08:35 GFR Calculation 26.1 mL/min (90-130) L 04/20/24 08:35 Glucose 144 mg/dL (65-115) H 04/20/24 08:35 Calculated Osmolality 272 mOsm/kg (285-295) L 04/20/24 08:35 Lactic Acid 2.6 mmol/L (0.5-2.2) H 04/20/24 08:35 Lactic Acid (Sepsis) 1.8 mmol/L (0.5-2.2) 04/20/24 11:50 Calcium 10.5 mg/dL (8.5-10.5) 04/20/24 08:35 Total Bilirubin 1.2 mg/dL (0.15-1.2) 04/20/24 08:35 AST 25 U/L (0-40) 04/20/24 08:35 ALT 11 U/L (0-41) 04/20/24 08:35 Alkaline Phosphatase 141 U/L (40-130) H 04/20/24 08:35 C-Reactive Protein 3.0 mg/L (0.0-4.9) 04/20/24 08:35 Total Protein 8.8 g/dL (6.6-8.7) H 04/20/24 08:35 Albumin 5.1 g/dL (3.5-5.2) 04/20/24 08:35 Globulin 3.7 g/dL (1.3-4.6) 04/20/24 08:35 Lipase 43 U/L (13-60) 04/20/24 08:35 Urine Color Dark yellow (Yellow) A 04/20/24 12:37 Urine Appearance Cloudy (CLEAR) A 04/20/24 12:37 Urine pH 5.5 (5-7) 04/20/24 12:37 Ur Specific [place] 1.025 (1.005-1.030) 04/20/24 12:37 Urine Protein 1+ (Negative) A 04/20/24 12:37 Urine Glucose (UA) Negative (Normal) 04/20/24 12:37 Urine Ketones Trace (Negative) 04/20/24 12:37 Urine Blood 2+ (Negative) A 04/20/24 12:37 Urine Nitrate Negative (Negative) 04/20/24 12:37 Urine Bilirubin Negative (Negative) 04/20/24 12:37 Urine Urobilinogen 1.0 mg/dL (Negative) 04/20/24 12:37 Ur Leukocyte Esterase Trace (Negative) A 04/20/24 12:37 Urine RBC 21-50 /hpf (0-2) H 04/20/24 12:37 Urine WBC 0-5 /hpf (0-5) 04/20/24 12:37 Ur Squamous Epith Cells 11-20 /hpf (0-5) 04/20/24 12:37 Calcium Oxalate Crystal 5-10 /hpf H 04/20/24 12:37 Amorphous Sediment Trace /hpf 04/20/24 12:37 Urine Bacteria None seen /hpf (NONE) 04/20/24 12:37 Hyaline Casts 177.50 /lpf 04/20/24 12:37 Urine Opiates Screen Positive ng/mL (Negative) H 04/20/24 12:37 Ur Barbiturates Screen Negative ng/mL (Negative) 04/20/24 12:37 Ur Phencyclidine Scrn Negative ng/mL (Negative) 04/20/24 12:37 Ur Amphetamines Screen Negative ng/mL (Negative) 04/20/24 12:37 U Benzodiazepines Scrn Positive ng/mL (Negative) H 04/20/24 12:37 Urine Cocaine Screen Negative ng/mL (Negative) 04/20/24 12:37 U Marijuana (THC) Screen Positive ng/mL (Negative) H 04/20/24 12:37 Coronavirus (PCR) Negative (Negative) 04/20/24 08:55 Influenza A (PCR) Negative (Negative) 04/20/24 08:55 Influenza Type B (PCR) Negative (Negative) 04/20/24 08:55 RSV (PCR) Negative (Negative) 04/20/24 08:55 All radiology interpretation(s) finalized by discharge Discharge Plan Discharge Patient Disposition: Placed in Observation Clinical Impression: Acute renal insufficiency, Dehydration, Vomiting, Marijuana use, continuous, Acute hyponatremia Coding Level of Care Code ED [employer] for [employer]
[2024-04-20 08:47] LABS: Basophils # 0.1 10^3/uL (0.0-0.1); Basophils % 0.3 %; Eosinophils % 0.1 %; Hematocrit 47.4 % (37-53); Lymphocytes # 3.1 10^3/uL (0.8-4.8); Lymphocytes % 14.8 %; Mean Corpuscular HGB Conc 35.2 g/dL (30-55); Mean Corpuscular Hemoglobin 31.2 pg (27-33); Mean Corpuscular Volume 88.4 fl (82-101); Mean Platelet Volume 8.7 fL (7.4-10.4); Monocytes # 1.4 10^3/uL (0.2-0.9); Monocytes % 6.8 %; Neutrophils # 16.22 10^3/uL (1.8-7.7); Neutrophils % 77.3 %; Nucleated Red Blood Cells % 0 %; Platelet Count 391 10^3/cmm (157-399); Red Blood Count 5.36 10^6/uL (3.85-5.65); Red Cell Distribution Width 13.1 % (12.1-15.1); White Blood Count 20.98 10^3/uL (3.29-11.43)
--- NOTE | 2024-04-20 08:50 | CTR_ITS ---
PROCEDURE INFORMATION: Exam: CT Abdomen And Pelvis Without Contrast Exam date and time: 04/20/2024 9:49 AM Age: 53 years old Clinical indication: Abdominal pain; Generalized TECHNIQUE: Imaging protocol: Computed tomography of the abdomen and pelvis without contrast. Radiation optimization: All CT scans at this facility use at least one of these dose optimization techniques: automated exposure control; mA and/or kV adjustment per patient size (includes targeted exams where dose is matched to clinical indication); or iterative reconstruction. COMPARISON: CT abdomen pelvis w con* [id number] 02/20/2024 3:22 PM RADIATION DOSE METRICS: Total DLP (mGy-cm): 506.78 FINDINGS: Liver: Normal. No mass. Gallbladder and biliary ducts: There has been a cholecystectomy. CBD measures 0.7 centimeters . Findings likely representing post cholecystectomy reservoir effect. Pancreas: Normal. No ductal dilation. Spleen: Normal. No splenomegaly. Adrenal glands: Normal. No mass. Kidneys and ureters: No hydronephrosis or nephrolithiasis. Ureters are normal. There is a simple cyst in the right kidney. Stomach and bowel: Stomach, small bowel, and large bowel are nondilated. Scattered colonic diverticula without any evidence of acute diverticulitis. Appendix: There has been an appendectomy. Intraperitoneal space: No free fluid or free intra-abdominal air. Vasculature: Scattered calcified atherosclerotic plaques of the abdominal aorta and iliac arteries without significant stenosis. Lymph nodes: No pelvic lymphadenopathy. No retroperitoneal or mesenteric lymphadenopathy. Urinary bladder: Mild bladder wall thickening likely secondary to underdistention. Reproductive: Intrinsic prostatic calcifications. Mild bladder wall indentation of the prostate. Bones/joints: Surgical changes are incidentally noted in the lower lumbar spine. Soft tissues: Normal soft tissues. Calcified injection granuloma are noted in the subcutaneous tissues of the buttocks. CT/CT abdomen pelvis wo con [id number] IMPRESSION: 1. No acute intra-abdominal findings 2. No mechanical bowel obstruction. 3. Diverticulosis without any evidence of acute diverticulitis. COMMENTS: Consistent with the [employer]'s Incidental Findings Committee white paper (J Am Diane Radiol 2018): Any incidental renal lesion less than 1 cm or classified as too small to characterize, or any incidental cystic renal lesion characterized as simple-appearing, is likely benign. No follow-up imaging is recommended for these lesions per consensus recommendations based on imaging criteria.
[2024-04-20] MEDS: ketorolac 30 mg/mL INJ IVP (08:53)
[2024-04-20] MEDS: sodium chloride 0.9% 1,000 ML 999 ML IV ×2 (08:53→11:06)
[2024-04-20] MEDS: ondansetron 2 mg/ML SDV 2 mL 8 MG IVP (08:53)
[2024-04-20 09:07] LABS: Lactic Sepsis W/Reflex 2.6 mmol/L (0.5-2.2)
[2024-04-20 09:08] LABS: Alanine Aminotransferase 11 U/L (0-41); Albumin Level 5.1 g/dL (3.5-5.2); Alkaline Phosphatase 141 U/L (40-130); Anion Gap 26.5 (5-19); Aspartate Amino Transferase 25 U/L (0-40); Blood Urea Nitrogen 39 mg/dL (6-20); Calcium 10.5 mg/dL (8.5-10.5); Carbon Dioxide 13 mmol/L (22-29); Chloride 89 mmol/L (98-107); Creatinine Clr Calc Pharmacy 31.6415; Globulin 3.7 g/dL (1.3-4.6); Glomerular Filtration Rate 26.1 mL/min (90-130); Glucose 144 mg/dL (65-115); Lipase 43 U/L (13-60); Osmolality Calculated 272 mOsm/kg (285-295); Potassium 3.5 mmol/L (3.5-5.1); Sodium 125 mmol/L (136-145); Total Bilirubin 1.2 mg/dL (0.15-1.2); Total Protein 8.8 g/dL (6.6-8.7)
[2024-04-20 09:41] LABS: Covid PCR NEGATIVE (Negative); Influenza A NEGATIVE (Negative); Influenza B NEGATIVE (Negative); Respiratory Syncytial Virus Ce NEGATIVE (Negative)
[2024-04-20 10:29] LABS: Reflex Lactate Order REFLEX LACTIC ORDERD
[2024-04-20 12:17] LABS: Lactic Acid level (Lactate) 1.8 mmol/L (0.5-2.2)
[2024-04-20 12:53] LABS: Bilirubin Urine Negative (Negative); Blood Urine 2+ (Negative); Glucose Urine UA Negative (Normal); Ketones Urine Trace (Negative); Leukocyte Esterase Urine Trace (Negative); Nitrate Urine Negative (Negative); Protein Urine 1+ (Negative); Specific Gravity, Urine 1.025 (1.005-1.030); Urine Appearance Cloudy (CLEAR); Urine Color Dark Yellow (Yellow); pH Urine 5.5 (5-7)
[2024-04-20 12:59] LABS: Bacteria Urine None Seen /hpf; RBC Urine 21-50 /hpf (0-2); WBC Urine 0-5 /hpf (0-5)
[2024-04-20 13:00] LABS: Amphetamines Screen Urine Negative (Negative); Barbiturates Screen Urine Negative (Negative); Benzodiazepines Screen Urine Positive (Negative); Cocaine Screen Urine Negative (Negative); Opiate Screen Urine Positive (Negative); PCP Screen Urine Negative (Negative); THC Screen Urine Positive (Negative)
[2024-04-20 13:13] LABS: Add Urine Culture? Yes
[2024-04-20 13:26] LABS: Amorphous Sediment Urine TRACE /hpf
--- NOTE | 2024-04-20 14:52 | PM.HP ---
Providers/Chief Complaint Admitting Physician: Jacob Tena MD Chief Complaint: vomiting, dizzy, weak, not ate History of Present Illness Sawyer Jack Cheng is a 53 year old male with past medical history of COPD, coronary artery disease status post multiple stents, chronic low back and knee pain, chronic marijuana use, depression. He has a history of a colonoscopy done on 04/04/2024 at [facility]. The patient presented to the emergency department due to nausea, vomiting and weakness. He noted that on Sunday he started having increased nausea and vomiting that began to worsen and now he is unable to hold down much of anything. He noted that he has very little urine production. He had gone to see his PCP for abdominal pain and it was felt that this may be related to his depression. He was started on sertraline 25 mg daily. He has not improved and got so weak that he could hardly get out of bed yesterday. He decided to present to the ER due to this. Review of Systems Narrative: General: Denies fevers, chills Cardiovascular: Denies chest pains, peripheral edema. Respiratory: Denies cough, wheezing. Gastrointestinal: Denies constipation, abdominal pain. Genitourinary: Denies dysuria. Skin: Denies rash. Medications/Allergies Home Medications Medication Instructions Recorded Confirmed Last Taken Type tamsulosin 0.4 mg capsule 0.4 mg PO QAM 08/22/19 04/16/24 01/06/24 History buspirone 30 mg tablet 30 mg PO QAM 01/05/22 04/16/24 01/06/24 History nitroglycerin 0.4 mg sublingual 0.4 mg sublingual Q5M PRN Chest 05/05/22 04/16/24 Unknown History tablet (Nitrostat) Pain albuterol sulfate 2.5 mg/3 mL 2.5 mg inhalation BID 03/14/23 04/16/24 01/07/24 History (0.083 %) solution for nebulization budesonide 0.5 mg/2 mL suspension 0.5 mg inhalation BID PRN copd 05/28/23 04/16/24 01/04/24 History for nebulization ipratropium 0.5 mg-albuterol 3 mg 3 ml inhalation Q6H PRN Shortness 05/28/23 04/16/24 Unknown History (2.5 mg base)/3 mL nebulization Of Breath soln atorvastatin 80 mg tablet 80 mg PO QAM #90 tabs 10/02/23 04/16/24 01/06/24 Rx nicotine 21 mg/24 hr daily See Rx Instructions .Route 12/05/23 04/16/24 01/04/24 Rx transdermal patch .COMPLEX #42 patches methocarbamol 750 mg tablet 750 mg PO Q6H PRN spasms #20 tabs 12/14/23 04/16/24 01/05/24 Rx Bone Growth Stimulator #1 ea 01/04/24 03/18/24 Unknown Rx aspirin 81 mg tablet,delayed 81 mg PO DAILY 01/04/24 04/16/24 01/01/24 History release clopidogrel 75 mg tablet 75 mg PO DAILY 01/04/24 04/16/24 01/01/24 History magnesium L-lactate 84 mg 84 mg PO DAILY 01/04/24 03/18/24 01/03/24 History tablet,extended release magnesium hydroxide 400 mg/5 mL 20 ml PO BID PRN constipation #355 01/12/24 04/16/24 Unknown Rx oral suspension (Milk of Magnesia) mL polyethylene glycol 3350 17 17 g PO BID PRN constipation #238 01/12/24 04/16/24 Unknown Rx gram/dose oral powder (Miralax) grams ondansetron HCl 4 mg tablet 4 mg PO Q8H #30 tabs 01/29/24 04/16/24 Unknown Rx metoclopramide HCl 10 mg tablet 10 mg PO Q6H PRN nausea and 02/03/24 04/16/24 Unknown Rx (Reglan) vomiting #20 tabs albuterol sulfate 90 mcg/actuation 2 puff inhalation Q4H PRN 02/05/24 04/16/24 Unknown Rx aerosol inhaler (ProAir HFA) Shortness Of Breath #6.7 grams clonazepam 2 mg tablet 2 mg PO BID PRN Anxiety attacks 30 02/05/24 04/16/24 Unknown Rx days #60 tabs fluticasone 100 mcg-salmeterol 50 1 inh inhalation BID #60 ea 02/05/24 04/16/24 Unknown Rx mcg/dose blistr powdr for inhalation (Advair Diskus) quetiapine 50 mg tablet 50 mg PO BEDTIME #30 tabs 02/05/24 04/16/24 Unknown Rx zonisamide 100 mg capsule 200 mg (2 x 100 mg) PO BID #60 caps 02/05/24 04/16/24 Unknown Rx nitroglycerin 0.4 mg sublingual 0.4 mg sublingual Q5M PRN chest 02/06/24 04/16/24 Unknown Rx tablet pain 30 days #30 tabs pantoprazole 40 mg tablet,delayed 40 mg PO BID 6 weeks #84 tabs 02/08/24 04/16/24 Unknown Rx release hydrocodone 5 mg-acetaminophen 325 1 tab PO Q4H PRN pain 7 days #42 04/15/24 04/16/24 Unknown Rx mg tablet tabs sertraline 25 mg tablet 25 mg PO DAILY #30 tabs 04/16/24 04/16/24 Unknown Rx Allergies Allergy/AdvReac Type Severity Reaction Status Date / Time meperidine [From Demerol] Allergy Severe ALGY-Hives Verified 04/16/24 14:56 Alpha-Gal Allergy upset GI Verified 04/16/24 14:56 (Jqiqljhcu-Rvlod-8,3-Gala [Ybvqndtec-Mnccc-5,3-Galactose (Alph] gabapentin AdvReac Severe ADR-Seizure Verified 04/16/24 14:56 morphine AdvReac Severe ALGY-Hives Verified 04/16/24 14:56 tramadol AdvReac Severe ADR-Seizure Verified 04/16/24 14:56 PFSH Acute PFSH: Medical History H. pylori duodenitis Elevated glucose Anxiety and depression Screening for lung cancer Alpha galactosidase deficiency C. difficile colitis Atherosclerosis of coronary artery Medical marijuana use Diverticulosis GERD (gastroesophageal reflux disease) Chronic pancreatitis Urethral stricture COPD (chronic obstructive pulmonary disease) Essential (primary) hypertension Seizure disorder Mixed hyperlipidemia Osteoarthritis rt knee, cervical and Lumbar spine Heart attack Surgical History History of esophagogastroduodenoscopy (EGD) 2021. Showing esophagitis, gastritis, and duodenitis with + H.pylori biopsies History of back surgery Status post right knee replacement Status post right knee replacement Hx of reconstruction of anterior cruciate ligament tear H/O neck surgery H/O left knee surgery History of appendectomy History of cholecystectomy H/O right knee surgery H/O chest tube placement H/O removal of testicle Stented coronary artery Family History Brother Parkinson disease Cancer Diabetes Stroke Family/Other Cancer Chronic kidney disease (CKD) Suicide Grandmother CAD (coronary artery disease) Cancer Lung disease Grandfather Dementia Mother Lung disease Father Suicide Denies family history of Clotting disorder Anesthesia complication Bleeding disorder Social History Smoking and tobacco/nicotine status: current every day tobacco/nicotine user cigarettes [ Other cigarette details: Had quit but today picked up again] Quit status (tobacco/nicotine): has tried quititng Alcohol intake: never Substance/Drug Use: current Substance/Drug use frequency: daily Other substance/drug use details: medical card Lives independently: Yes Household members: significant other service: No Current occupational status: disabled Current occupational exposures/hazards: Yes Do you think of yourself as: Straight/Heterosexual Current gender identity: Male Vitals/I&O/Wt Last Vital Signs Temp 98.1 F 04/20/24 08:10 Pulse 68 04/20/24 13:04 Resp 18 04/20/24 08:10 BP 149/100 04/20/24 13:04 Pulse Ox 93 04/20/24 13:04 O2 Del Method Room Air 04/20/24 13:04 04/19/24 04/20/24 04/20/24 22:59 06:59 14:59 Intake Total 1000 / 1000 Balance 1000 / 1000 Weight last 48 hrs Weight 160 lb Physical Exam Narrative: General: Alert and oriented x 3. In no acute distress. Appears ill. Eyes: PERRLA, EOM intact, no discharge. Mouth: No erythema or tonsilar enlargement. No masses noted. Neck: No thyromegaly. No lymphadenopathy. Heart: Regular rate and rhythm. No murmurs. Lungs: Decreased air entry bilaterally. No significant wheezes, crackles or rhonchi. Abdomen: Soft, minimal diffuse tenderness. No hepatosplenomegaly. Extremities: No pitting edema. Data 04/20/24 08:35 04/20/24 08:35 Micro: Microbiology 04/20/24 11:50 Blood Culture - Preliminary Blood SPECIMEN COLLECTED 04/20/24 08:35 Blood Culture - Preliminary Blood SPECIMEN COLLECTED A&P Assessment and plan (1) Acute renal insufficiency: The patient's creatinine has increased from a baseline of 0.9 up to 2.6. This is likely due to poor intake. The patient received 2 L of IV fluids in the ER and we will continue with 125 mL/h with a regular diet. This may need to be adjusted as he improves. We will recheck labs tomorrow. (2) Dehydration: (3) Acute hyponatremia: Likely secondary to dehydration. If not improving, this could also be related to sertraline use. We will hold sertraline for now. If not improving, we may need to address other possible medications as causes. (4) Vomiting: The patient is no longer vomiting in the ER. The cause of this is not clear. It could be related to marijuana use, however he continued to have vomiting despite not smoking since Sunday. The patient does not have a gallbladder and his CT scan did not show a significant cause of infection. He did have a colonoscopy done on 04/04/2024. At this time he does not have surgical abdomen to suggest perforation. CT scan did not show signs of this either. We will try treating with Zofran as needed and follow. (5) Abdominal pain: The patient has diffuse abdominal pain. He does not have a gallbladder or appendix. CT scan did not show a cause. We will continue to monitor this. (6) Anxiety and depression: The patient seems to be stable at this time, however we will likely need to stop the sertraline due to hyponatremia. He may need further assistance with medications depending on his course. (7) Marijuana use, continuous: The patient was advised that marijuana can lead to significant nausea and vomiting. I am not sure that this is the cause, but it could be contributing. Attestations Medical Necessity Statement*: The patient is currently here under observation due to acute renal failure. His stay will cross at least 1 midnight and we will follow-up to see how he does over the next 24 hours to see if he improves sufficiently to discharge home at that time or change to inpatient status at that time. Coding Level of Care Code Acute Code for [facility] Fwd Diagnoses Acute renal insufficiency N28.9 Dehydration E86.0 Acute hyponatremia E87.1 Vomiting R11.10 Abdominal pain R10.9 Anxiety and depression F41.9; F32.A Marijuana use, continuous F12.90
[2024-04-20] MEDS: enoxaparin 40 mg/0.4 mL Syringe SUBCUT (15:38)
[2024-04-20] MEDS: sodium chloride 0.9% 1,000 ML 125 ML IV (15:39)
--- NOTE | 2024-04-20 18:24 | XRR_ITS ---
PROCEDURE INFORMATION: Exam: XR Chest Exam date and time: 04/20/2024 7:47 PM Age: 53 years old Clinical indication: Patient HX: Cough; Leukocytosis; N/v/d; Weakness TECHNIQUE: Imaging protocol: Radiologic exam of the chest. Views: 1 view. COMPARISON: CT chest abdpel w/*[id number] 01/29/2024 7:40 PM FINDINGS: Lungs: The lungs are clear. No pulmonary consolidation. Pleural spaces: No pleural effusion or pneumothorax. Heart/Mediastinum: The cardiomediastinal silhouette is within normal limits. Coronary artery stents are noted. Bones/joints: No acute osseous abnormalities are seen. Chronic posttraumatic changes to the left shoulder. XR/XR chest 1V portable [id number] IMPRESSION: No acute cardiopulmonary disease.
--- NOTE | 2024-04-20 22:02 | PC.NURSE ---
patient no longer has iv access, if nursing can not get line in ultrasound will be notified. iv maintnence can not be done at this time
--- NOTE | 2024-04-20 22:06 | PC.NURSE ---
patient requesting nicotine patch and seroquel for sleep. notified of request, waiting for reply
[2024-04-20] MEDS: ondansetron 4 MG Tablet PO (22:54)
[2024-04-20] MEDS: nicotine 14 mg Patch 1 PATCH TRANSDERMA (22:54)
[2024-04-20] MEDS: quetiapine 25 mg Tablet 50 MG PO (23:36)
[2024-04-21] VITALS: BP 154/89; PULSE 56; RESP 16; TEMP 36.8; O2SAT 99
--- NOTE | 2024-04-21 00:48 | PC.NURSE ---
patients iv fluids are paused and documented not given due to no iv access. iv access went bad and staff has been unable to obtain a new iv line. diesel maintenance technician is unavailable at this time for insertion
[2024-04-21] MEDS: ondansetron 2 mg/ML SDV 2 mL 4 MG IVP ×3 (03:12→20:59)
[2024-04-21 03:46] LABS: Basophils % 0.2 %; Eosinophils # 0.1 10^3/uL (0.0-0.8); Eosinophils % 0.5 %; Hematocrit 40.2 % (37-53); Lymphocytes % 19.3 %; Mean Corpuscular HGB Conc 34.8 g/dL (30-55); Mean Corpuscular Hemoglobin 31.2 pg (27-33); Mean Corpuscular Volume 89.5 fl (82-101); Mean Platelet Volume 8.5 fL (7.4-10.4); Monocytes # 1.2 10^3/uL (0.2-0.9); Neutrophils # 11.12 10^3/uL (1.8-7.7); Neutrophils % 71.5 %; Nucleated Red Blood Cells % 0 %; Platelet Count 306 10^3/cmm (157-399); Red Blood Count 4.49 10^6/uL (3.85-5.65); White Blood Count 15.53 10^3/uL (3.29-11.43)
[2024-04-21 04:00] VITALS: BP 148/92; PULSE 53; RESP 16; TEMP 36.6; O2SAT 99
[2024-04-21 04:03] LABS: Alanine Aminotransferase 11 U/L (0-41); Albumin Level 4.4 g/dL (3.5-5.2); Alkaline Phosphatase 104 U/L (40-130); Anion Gap 21.3 (5-19); Aspartate Amino Transferase 22 U/L (0-40); Blood Urea Nitrogen 34 mg/dL (6-20); Calcium 9.3 mg/dL (8.5-10.5); Carbon Dioxide 16 mmol/L (22-29); Chloride 97 mmol/L (98-107); Globulin 2.6 g/dL (1.3-4.6); Glomerular Filtration Rate 78.5 mL/min (90-130); Glucose 114 mg/dL (65-115); Magnesium 1.7 mg/dL (1.7-2.3); Osmolality Calculated 280 mOsm/kg (285-295); Phosphorus 2.7 mg/dL (2.5-4.5); Potassium 3.3 mmol/L (3.5-5.1); Sodium 131 mmol/L (136-145); Total Bilirubin 1.1 mg/dL (0.15-1.2)
[2024-04-21 04:06] LABS: Lactic Sepsis W/Reflex 1.4 mmol/L (0.5-2.2)
[2024-04-21 07:28] VITALS: BP 137/86; PULSE 82; RESP 16; O2SAT 98
[2024-04-21] MEDS: potassium chloride ER 20 mEq Tablet 40 MEQ PO ×2 (08:49→13:40)
[2024-04-21] MEDS: sodium chloride 0.9% 1,000 ML 125 ML IV ×2 (08:49→17:14)
--- NOTE | 2024-04-21 10:23 | PC.CHAP ---
Pastoral Care Encounter/Spiritual Assessment Type of Contact [] Declined electronics processor visit [] Patient/Family/Request visit [] Outpatient visit [] Follow-up visit [] Physician referral [] Code/Alert [x] Routine visit [] Staff referral [] Actively dying [] Patient sleeping [] Family support [] [] Out of room [] Palliative care [] [] Receiving care in room [] Pre-surgical visit [] Trauma [] Long length of stay [] ICU visit [] Other: Relational/Emotional Strength [x] Patient feels connected with others/family/visitors/staff [] Distress [] Loneliness/isolation [] Abandonment Spirituality of Patient [x] Person of Bailey [] Attends Orthodox of their Bailey [x] Believes in Prayer [] Reads Bible or Oriental Orthodox materials [] There are Spiritual issues to be addressed Cable Assembler And Swager Interventions [x] Prayer [x] Active listening [x] Non-anxious presence [x] Spiritual/emotional support [] Crisis/trauma care [] Spiritual counseling [] Bereavement support [] Provided bereavement packet [] Provided Bible/devotional materials [] Provided toy/stuffed animal, coloring book to patient or family member [] Provided Communion [] Anointing/[place] [] Salvation [x] Completed spiritual assessment [] Other: Impact on Illness or Injury [] Angry [] Fearful [] Anxious [] Often cries [] Exhaustion [] Unable to work [] Unable to attend mosque [] Unable to walk/stand [] Unable to read [] Unable to drive [] Unable to eat/drink [] Unable to sleep [] Unable to be with family [] Patient intubated [] Other: Summary Time spent with patient 5 min
[2024-04-21 11:35] VITALS: BP 146/87; PULSE 54; RESP 17; TEMP 36.6; O2SAT 98
[2024-04-21] MEDS: enoxaparin 40 mg/0.4 mL Syringe SUBCUT (13:40)
[2024-04-21] MEDS: HYDROcodone-acetaminophen 5-325 mg Tablet 1 TAB PO ×2 (13:40→21:00)
--- NOTE | 2024-04-21 14:37 | PM.PN ---
Subjective Subjective: Patient continues to have vomiting but improved as compared to admission. He had 2 episodes of vomiting since yesterday evening. He complained of diffuse abdominal pain this morning and has not been able to eat. Medications: Reviewed: Yes Vitals/I&O/Wt Last Vital Signs Temp 97.9 F 04/21/24 11:35 Pulse 54 L 04/21/24 11:35 Resp 17 04/21/24 11:35 BP 146/87 04/21/24 11:35 Pulse Ox 98 04/21/24 11:35 O2 Del Method Room Air 04/21/24 11:35 04/20/24 04/21/24 04/21/24 22:59 06:59 14:59 Intake Total 1377.083 / 2377.083 16.667 / 2393.750 726.25 / 726.25 Output Total 200 / 200 Balance 1377.083 / 2377.083 16.667 / 2393.750 526.25 / 526.25 Weight last 48 hrs Weight 69.428 kg Weight 69.853 kg Weight 72.575 kg Physical Exam Narrative: General: Alert and oriented x 3. In no acute distress. Appears ill. Eyes: PERRLA, EOM intact, no discharge. Mouth: No erythema or tonsilar enlargement. No masses noted. Neck: No thyromegaly. No lymphadenopathy. Heart: Regular rate and rhythm. No murmurs. Lungs: Decreased air entry bilaterally. No significant wheezes, crackles or rhonchi. Abdomen: Soft, minimal diffuse tenderness. No hepatosplenomegaly. Normal bowel sounds Extremities: No pitting edema. Data 04/21/24 03:04 04/21/24 03:04 Micro: Microbiology 04/20/24 11:50 Blood Culture - Preliminary Blood NEGATIVE TO DATE 04/20/24 08:35 Blood Culture - Preliminary Blood NEGATIVE TO DATE 04/20/24 12:37 Urine Culture - Preliminary Urine,Clean Catch A&P Assessment and plan (1) Acute renal insufficiency: Resolved. Continue IV fluids normal saline at 125 mL/h (2) Dehydration: Likely secondary to vomiting, poor p.o. intake. Continue IV fluids for now. (3) Acute hyponatremia: Likely secondary to dehydration. Sodium at 131 today. Will monitor for now. (4) Vomiting: Continue IV Zofran as needed. Frequency improving as compared to admission. (5) Abdominal pain: The patient has diffuse abdominal pain. Likely secondary to vomiting. He does not have a gallbladder or appendix. CT scan did not show a cause. We will continue to monitor this. (6) Anxiety and depression: The patient seems to be stable at this time, however sertraline on hold secondary to hyponatremia (7) Marijuana use, continuous: The patient was advised that marijuana can lead to significant nausea and vomiting. Educated and counseled about stopping use of marijuana. Attestations Medical Necessity Statement*: He needs continued hospitalization crossing 2 midnights for management of nausea and vomiting likely secondary to marijuana use and hyponatremia with IV fluids Time Spent in Patient Care: 25 minutes Coding Level of Care Code Acute Code for [facility] Fwd Diagnoses Acute renal insufficiency N28.9 Dehydration E86.0 Acute hyponatremia E87.1 Vomiting R11.10 Abdominal pain R10.9 Anxiety and depression F41.9; F32.A Marijuana use, continuous F12.90 Time Spent (min) 25
[2024-04-21 15:42] VITALS: BP 140/90; PULSE 59; RESP 16; TEMP 36.8; O2SAT 97
[2024-04-21 19:41] VITALS: BP 136/88; PULSE 59; RESP 18; TEMP 36.6; O2SAT 99
[2024-04-21] MEDS: nicotine 14 mg Patch 1 PATCH TRANSDERMA (20:47)
[2024-04-21] MEDS: quetiapine 25 mg Tablet 50 MG PO (20:59)
[2024-04-22] VITALS: BP 173/89; PULSE 65; RESP 16; TEMP 36.7; O2SAT 100
[2024-04-22] MEDS: ondansetron 2 mg/ML SDV 2 mL 4 MG IVP ×5 (00:12→20:20)
[2024-04-22] MEDS: sodium chloride 0.9% 1,000 ML 125 ML IV ×4 (00:12→23:08)
[2024-04-22 04:00] VITALS: BP 166/88; PULSE 54; RESP 18; TEMP 36.9; O2SAT 97
[2024-04-22 04:30] LABS: Basophils % 0.2 %; Eosinophils # 0.1 10^3/uL (0.0-0.8); Eosinophils % 0.8 %; Hematocrit 36.5 % (37-53); Lymphocytes # 2.3 10^3/uL (0.8-4.8); Lymphocytes % 22.5 %; Mean Corpuscular HGB Conc 34.2 g/dL (30-55); Mean Corpuscular Hemoglobin 31.4 pg (27-33); Mean Corpuscular Volume 91.7 fl (82-101); Mean Platelet Volume 8.5 fL (7.4-10.4); Monocytes # 0.8 10^3/uL (0.2-0.9); Monocytes % 7.3 %; Neutrophils # 7.15 10^3/uL (1.8-7.7); Neutrophils % 68.8 %; Nucleated Red Blood Cells % 0 %; Platelet Count 234 10^3/cmm (157-399); Red Blood Count 3.98 10^6/uL (3.85-5.65); Red Cell Distribution Width 12.9 % (12.1-15.1); White Blood Count 10.39 10^3/uL (3.29-11.43)
[2024-04-22 04:53] LABS: Anion Gap 16.4 (5-19); Blood Urea Nitrogen 15 mg/dL (6-20); Calcium 8.6 mg/dL (8.5-10.5); Carbon Dioxide 16 mmol/L (22-29); Chloride 101 mmol/L (98-107); Creatinine Clr Calc Pharmacy 116.0364; Glomerular Filtration Rate 118.4 mL/min (90-130); Glucose 102 mg/dL (65-115); Osmolality Calculated 271 mOsm/kg (285-295); Potassium 3.4 mmol/L (3.5-5.1); Sodium 130 mmol/L (136-145)
[2024-04-22 07:50] VITALS: BP 117/80; PULSE 70; RESP 18; TEMP 36.9; O2SAT 96
[2024-04-22] MEDS: potassium chloride ER 20 mEq Tablet 40 MEQ PO ×2 (08:08→13:41)
--- NOTE | 2024-04-22 09:40 | PC.CHAP ---
Pastoral Care Encounter/Spiritual Assessment Type of Contact [] Declined learning program manager visit [] Patient/Family/Request visit [] Outpatient visit [] Follow-up visit [] Physician referral [] Code/Alert [] Routine visit [] Staff referral [] Actively dying [] Patient sleeping [] Family support [] [] Out of room [] Palliative care [] [x] Receiving care in room [] Pre-surgical visit [] Trauma [] Long length of stay [] ICU visit [] Other: Relational/Emotional Strength [] Patient feels connected with others/family/visitors/staff [] Distress [] Loneliness/isolation [] Abandonment Spirituality of Patient [] Person of Bailey [] Attends Buddhism of their [place] [] Believes in Prayer [] Reads Bible or Temple materials [] There are Spiritual issues to be addressed Account Supervisor Interventions [] Prayer [] Active listening [] Non-anxious presence [] Spiritual/emotional support [] Crisis/trauma care [] Spiritual counseling [] Bereavement support [] Provided bereavement packet [] Provided Bible/devotional materials [] Provided toy/stuffed animal, coloring book to patient or family member [] Provided Communion [] Anointing/[place] [] Salvation [] Completed spiritual assessment [] Other: Impact on Illness or Injury [] Angry [] Fearful [] Anxious [] Often cries [] Exhaustion [] Unable to work [] Unable to attend jainism [] Unable to walk/stand [] Unable to read [] Unable to drive [] Unable to eat/drink [] Unable to sleep [] Unable to be with family [] Patient intubated [] Other: Summary Time spent with patient
[2024-04-22 12:33] VITALS: BP 143/87; PULSE 61; RESP 18; TEMP 36.6; O2SAT 98
--- NOTE | 2024-04-22 13:03 | P.PN_ITS ---
Subjective 2 Subjective: No acute overnight events noted. Seen him at bedside this morning. Feels much better as compared to admission, abdominal pain resolved. Reports has not been vomited since yesterday afternoon. Able to partially tolerate normal diet. But had vomiting after eating chicken yesterday afternoon. He reports he has been having sensitive stomach since childhood. Had multiple visits to ER since he was a kid, but the stomach issue has been gradually getting worse over the last few years. Medications: Reviewed: Yes Vitals/I&O/Wt Last Vital Signs Temp 97.9 F 04/22/24 12:33 Pulse 61 04/22/24 12:33 Resp 18 04/22/24 12:33 BP 143/87 04/22/24 12:33 Pulse Ox 98 04/22/24 12:33 O2 Del Method Room Air 04/22/24 12:33 04/21/24 04/22/24 04/22/24 22:59 06:59 14:59 Intake Total 1120 / 1846.25 1110.833 / 2957.083 1111.667 / 1111.667 Output Total 0 / 200 450 / 650 600 / 600 Balance 1120 / 1646.25 660.833 / 2307.083 511.667 / 511.667 Weight last 48 hrs Weight 70.443 kg Weight 69.428 kg Weight 69.853 kg Physical Exam 2 Narrative: General: Alert and oriented x 3. In no acute distress. Appears ill. Eyes: PERRLA, EOM intact, no discharge. Mouth: No erythema or tonsilar enlargement. No masses noted. Neck: No thyromegaly. No lymphadenopathy. Heart: Regular rate and rhythm. No murmurs. Lungs: Decreased air entry bilaterally. No significant wheezes, crackles or rhonchi. Abdomen: Soft, minimal diffuse tenderness. No hepatosplenomegaly. Normal bowel sounds Extremities: No pitting edema. Data 04/22/24 04:15 04/22/24 04:15 Micro: Microbiology 04/20/24 12:37 Urine Culture - Final Urine,Clean Catch 04/20/24 11:50 Blood Culture - Preliminary Blood NEGATIVE TO DATE 04/20/24 08:35 Blood Culture - Preliminary Blood NEGATIVE TO DATE A&P Assessment and plan (1) Acute renal insufficiency: Resolved. Continue IV fluids normal saline at 125 mL/h (2) Dehydration: Likely secondary to vomiting, poor p.o. intake. Continue IV fluids for now. (3) Acute hyponatremia: Likely secondary to dehydration. Sodium at 130 today. Will monitor for now. (4) Vomiting: Continue IV Zofran as needed. Frequency improving as compared to admission. (5) Abdominal pain: Resolved.. No further intervention needed at this time (6) Anxiety and depression: The patient seems to be stable at this time, however sertraline on hold secondary to hyponatremia (7) Marijuana use, continuous: The patient was advised that marijuana can lead to significant nausea and vomiting. Educated and counseled about stopping use of marijuana and narcotics for chronic back pain, neck pain and knee pain Attestations 2 Medical Necessity Statement*: Anticipating discharge home in a.m. Time Spent in Patient Care: 15 minutes Coding Level of Care Code Acute Code for [facility] Fwd Diagnoses Acute renal insufficiency N28.9 Dehydration E86.0 Acute hyponatremia E87.1 Vomiting R11.10 Abdominal pain R10.9 Anxiety and depression F41.9; F32.A Marijuana use, continuous F12.90 Time Spent (min) 15
[2024-04-22] MEDS: HYDROcodone-acetaminophen 5-325 mg Tablet 1 TAB PO ×2 (13:41→23:18)
[2024-04-22] MEDS: enoxaparin 40 mg/0.4 mL Syringe SUBCUT (13:41)
[2024-04-22 16:34] VITALS: BP 158/90; PULSE 52; RESP 18; TEMP 36.8; O2SAT 100
[2024-04-22 20:00] VITALS: BP 135/93; PULSE 62; RESP 18; TEMP 37; O2SAT 99
[2024-04-22] MEDS: nicotine 14 mg Patch 1 PATCH TRANSDERMA (20:19)
[2024-04-22] MEDS: quetiapine 25 mg Tablet 50 MG PO (20:20)
[2024-04-23] VITALS: BP 181/95; PULSE 54; RESP 18; TEMP 36.9; O2SAT 98
[2024-04-23 01:03] VITALS: BP 146/93
[2024-04-23 03:46] VITALS: BP 136/86; PULSE 60; RESP 18; TEMP 36.7; O2SAT 99
[2024-04-23 08:00] VITALS: BP 145/81; PULSE 62; RESP 16; TEMP 36.6; O2SAT 99
[2024-04-23] MEDS: potassium chloride ER 20 mEq Tablet PO (08:32)
[2024-04-23] MEDS: HYDROcodone-acetaminophen 5-325 mg Tablet 1 TAB PO (08:36)
--- NOTE | 2024-04-23 10:36 | PM.DCS ---
Discharge Providers Date of Admission: 04/21/24 15:18 Date of Discharge: April 23, 2024 Attending Provider at Admission: Jacob Tena MD Attending Provider at Discharge: Christine Bales MD Diagnoses at Discharge Discharge Diagnosis (1) Acute renal insufficiency: Status: Acute (2) Dehydration: Status: Acute (3) Acute hyponatremia: Status: Acute (4) Vomiting: Status: Acute (5) Abdominal pain: Status: Acute (6) Anxiety and depression: Status: Acute (7) Marijuana use, continuous: Status: Acute Reason for Visit Reason for Visit: vomiting, dizzy, weak, not ate Brief History: Josue Cheng is a 53 year old male with past medical history of COPD, coronary artery disease status post multiple stents, chronic low back and knee pain, chronic marijuana use, depression. He has a history of a colonoscopy done on 04/04/2024 at [facility]. The patient presented to the emergency department due to nausea, vomiting and weakness. He noted that on Sunday he started having increased nausea and vomiting that began to worsen and now he is unable to hold down much of anything. He noted that he has very little urine production. He had gone to see his PCP for abdominal pain and it was felt that this may be related to his depression. He was started on sertraline 25 mg daily. He has not improved and got so weak that he could hardly get out of bed yesterday. He decided to present to the ER due to this. Hospital Course Hospital Course 04/20 (1) Acute renal insufficiency: The patient's creatinine has increased from a baseline of 0.9 up to 2.6. This is likely due to poor intake. The patient received 2 L of IV fluids in the ER and we will continue with 125 mL/h with a regular diet. This may need to be adjusted as he improves. We will recheck labs tomorrow. (2) Dehydration: (3) Acute hyponatremia: Likely secondary to dehydration. If not improving, this could also be related to sertraline use. We will hold sertraline for now. If not improving, we may need to address other possible medications as causes. (4) Vomiting: The patient is no longer vomiting in the ER. The cause of this is not clear. It could be related to marijuana use, however he continued to have vomiting despite not smoking since Wednesday. The patient does not have a gallbladder and his CT scan did not show a significant cause of infection. He did have a colonoscopy done on 04/04/2024. At this time he does not have surgical abdomen to suggest perforation. CT scan did not show signs of this either. We will try treating with Zofran as needed and follow. (5) Abdominal pain: The patient has diffuse abdominal pain. He does not have a gallbladder or appendix. CT scan did not show a cause. We will continue to monitor this. (6) Anxiety and depression: The patient seems to be stable at this time, however we will likely need to stop the sertraline due to hyponatremia. He may need further assistance with medications depending on his course. (7) Marijuana use, continuous: The patient was advised that marijuana can lead to significant nausea and vomiting. I am not sure that this is the cause, but it could be contributing. 04/21 (1) Acute renal insufficiency: Resolved. Continue IV fluids normal saline at 125 mL/h (2) Dehydration: Likely secondary to vomiting, poor p.o. intake. Continue IV fluids for now. (3) Acute hyponatremia: Likely secondary to dehydration. Sodium at 131 today. Will monitor for now. (4) Vomiting: Continue IV Zofran as needed. Frequency improving as compared to admission. (5) Abdominal pain: The patient has diffuse abdominal pain. Likely secondary to vomiting. He does not have a gallbladder or appendix. CT scan did not show a cause. We will continue to monitor this. (6) Anxiety and depression: The patient seems to be stable at this time, however sertraline on hold secondary to hyponatremia (7) Marijuana use, continuous: The patient was advised that marijuana can lead to significant nausea and vomiting. Educated and counseled about stopping use of marijuana. 04/22 Vomiting: Resolved Abdominal pain: Resolved.. No further intervention needed at this time Marijuana use, continuous: The patient was advised that marijuana can lead to significant nausea and vomiting. Educated and counseled about stopping use of marijuana and narcotics for chronic back pain, neck pain and knee pain He is doing and feeling better and will discharge him home to follow up PCP in 2 weeks. Physical Exam Narrative: General: Alert and oriented x 3. In no acute distress. Appears ill. Eyes: PERRLA, EOM intact, no discharge. Mouth: No erythema or tonsilar enlargement. No masses noted. Neck: No thyromegaly. No lymphadenopathy. Heart: Regular rate and rhythm. No murmurs. Lungs: Decreased air entry bilaterally. No significant wheezes, crackles or rhonchi. Abdomen: Soft, minimal diffuse tenderness. No hepatosplenomegaly. Normal bowel sounds Extremities: No pitting edema. Discharge Data Studies Completed and Pending Completed Studies During Hospitalization Category Date Time Status CT abdomen pelvis wo con [id number] Stat Cat Scan 04/20/24 08:50 Completed XR chest 1V portable [id number] Routine Exams 04/20/24 18:24 Completed Pending at discharge Category Date Time Status Blood Culture Stat Lab 04/20/24 11:50 Results Radiology Impressions Abdomen/Pelvis CT 04/20/24 08:50 IMPRESSION: 1. No acute intra-abdominal findings 2. No mechanical bowel obstruction. 3. Diverticulosis without any evidence of acute diverticulitis. COMMENTS: Consistent with the [employer]'s Incidental Findings Committee white paper (J Am Diane Radiol 2018): Any incidental renal lesion less than 1 cm or classified as too small to characterize, or any incidental cystic renal lesion characterized as simple-appearing, is likely benign. No follow-up imaging is recommended for these lesions per consensus recommendations based on imaging criteria. Chest X-Ray 04/20/24 18:24 IMPRESSION: No acute cardiopulmonary disease. Laboratory Results WBC 10.39 10^3/uL (3.29-11.43) 04/22/24 04:15 RBC 3.98 10^6/uL (3.85-5.65) 04/22/24 04:15 Hgb 12.50 g/dL (11.27-16.99) 04/22/24 04:15 Hct 36.5 % (37-53) L 04/22/24 04:15 MCV 91.7 fl (82-101) 04/22/24 04:15 MCH 31.4 pg (27-33) 04/22/24 04:15 MCHC 34.2 g/dL (30-55) 04/22/24 04:15 RDW 12.9 % (12.1-15.1) 04/22/24 04:15 Plt Count 234 10^3/cmm (157-399) 04/22/24 04:15 MPV 8.5 fL (7.4-10.4) 04/22/24 04:15 Neut % (Auto) 68.8 % 04/22/24 04:15 Lymph % (Auto) 22.5 % 04/22/24 04:15 Bailey % (Auto) 7.3 % 04/22/24 04:15 Eos % (Auto) 0.8 % 04/22/24 04:15 Baso % (Auto) 0.2 % 04/22/24 04:15 Neut # (Auto) 7.15 10^3/uL (1.8-7.7) 04/22/24 04:15 Lymph # (Auto) 2.3 10^3/uL (0.8-4.8) 04/22/24 04:15 Bailey # (Auto) 0.8 10^3/uL (0.2-0.9) 04/22/24 04:15 Eos # (Auto) 0.1 10^3/uL (0.0-0.8) 04/22/24 04:15 Baso # (Auto) 0.0 10^3/uL (0.0-0.1) 04/22/24 04:15 Nucleated RBC % (auto) 0 % 04/22/24 04:15 Nucleated RBCs # 0.0 /100WBC 04/22/24 04:15 Sodium 130 mmol/L (136-145) L 04/22/24 04:15 Potassium 3.4 mmol/L (3.5-5.1) L 04/22/24 04:15 Chloride 101 mmol/L (98-107) 04/22/24 04:15 Carbon Dioxide 16 mmol/L (22-29) L 04/22/24 04:15 Anion Gap 16.4 (5-19) 04/22/24 04:15 BUN 15 mg/dL (6-20) 04/22/24 04:15 Creatinine 0.7 mg/dL (0.7-1.2) 04/22/24 04:15 GFR Calculation 118.4 mL/min (90-130) 04/22/24 04:15 Glucose 102 mg/dL (65-115) 04/22/24 04:15 Calculated Osmolality 271 mOsm/kg (285-295) L 04/22/24 04:15 Lactic Acid 1.4 mmol/L (0.5-2.2) 04/21/24 03:04 Lactic Acid (Sepsis) 1.8 mmol/L (0.5-2.2) 04/20/24 11:50 Calcium 8.6 mg/dL (8.5-10.5) 04/22/24 04:15 Phosphorus 2.7 mg/dL (2.5-4.5) 04/21/24 03:04 Magnesium 1.7 mg/dL (1.7-2.3) 04/21/24 03:04 Total Bilirubin 1.1 mg/dL (0.15-1.2) 04/21/24 03:04 AST 22 U/L (0-40) 04/21/24 03:04 ALT 11 U/L (0-41) 04/21/24 03:04 Alkaline Phosphatase 104 U/L (40-130) 04/21/24 03:04 C-Reactive Protein 3.0 mg/L (0.0-4.9) 04/20/24 08:35 Total Protein 7.0 g/dL (6.6-8.7) D 04/21/24 03:04 Albumin 4.4 g/dL (3.5-5.2) 04/21/24 03:04 Globulin 2.6 g/dL (1.3-4.6) 04/21/24 03:04 Lipase 43 U/L (13-60) 04/20/24 08:35 Urine Color Dark yellow (Yellow) A 04/20/24 12:37 Urine Appearance Cloudy (CLEAR) A 04/20/24 12:37 Urine pH 5.5 (5-7) 04/20/24 12:37 Ur Specific [place] 1.025 (1.005-1.030) 04/20/24 12:37 Urine Protein 1+ (Negative) A 04/20/24 12:37 Urine Glucose (UA) Negative (Normal) 04/20/24 12:37 Urine Ketones Trace (Negative) 04/20/24 12:37 Urine Blood 2+ (Negative) A 04/20/24 12:37 Urine Nitrate Negative (Negative) 04/20/24 12:37 Urine Bilirubin Negative (Negative) 04/20/24 12:37 Urine Urobilinogen 1.0 mg/dL (Negative) 04/20/24 12:37 Ur Leukocyte Esterase Trace (Negative) A 04/20/24 12:37 Urine RBC 21-50 /hpf (0-2) H 04/20/24 12:37 Urine WBC 0-5 /hpf (0-5) 04/20/24 12:37 Ur Squamous Epith Cells 11-20 /hpf (0-5) 04/20/24 12:37 Calcium Oxalate Crystal 5-10 /hpf H 04/20/24 12:37 Amorphous Sediment Trace /hpf 04/20/24 12:37 Urine Bacteria None seen /hpf (NONE) 04/20/24 12:37 Hyaline Casts 177.50 /lpf 04/20/24 12:37 Urine Opiates Screen Positive ng/mL (Negative) H 04/20/24 12:37 Ur Barbiturates Screen Negative ng/mL (Negative) 04/20/24 12:37 Ur Phencyclidine Scrn Negative ng/mL (Negative) 04/20/24 12:37 Ur Amphetamines Screen Negative ng/mL (Negative) 04/20/24 12:37 U Benzodiazepines Scrn Positive ng/mL (Negative) H 04/20/24 12:37 Urine Cocaine Screen Negative ng/mL (Negative) 04/20/24 12:37 U Marijuana (THC) Screen Positive ng/mL (Negative) H 04/20/24 12:37 Coronavirus (PCR) Negative (Negative) 04/20/24 08:55 Influenza A (PCR) Negative (Negative) 04/20/24 08:55 Influenza Type B (PCR) Negative (Negative) 04/20/24 08:55 RSV (PCR) Negative (Negative) 04/20/24 08:[address] Abd/Pel: Radiologist's impression: IMPRESSION: 1. No acute intra-abdominal findings 2. No mechanical bowel obstruction. 3. Diverticulosis without any evidence of acute diverticulitis. Vitals Last Vital Signs Temp 98 F 04/23/24 08:00 Pulse 62 04/23/24 08:00 Resp 16 04/23/24 08:00 BP 145/81 04/23/24 08:00 Pulse Ox 99 04/23/24 08:00 O2 Del Method Room Air 04/23/24 08:00 Discharge Plan Discharge Patient Disposition: Home Condition: Stable Prescriptions: New Klor-Con M20 20 mEq Tablet,Er Particles/Crystals 20 meq PO DAILY 10 Days Qty: 10 0RF Continued tamsulosin 0.4 mg capsule 0.4 mg PO QAM buspirone 30 mg tablet 30 mg PO QAM albuterol sulfate 2.5 mg /3 mL (0.083 %) solution for nebulization 2.5 mg inhalation BID nitroglycerin 0.4 mg tablet, sublingual 0.4 mg sublingual Q5M PRN (Reason: chest pain) 30 Days Qty: 30 3RF Rx Instructions: until response; do not exceed 3 doses per episode zonisamide 100 mg capsule 200 mg PO BID Qty: 60 2RF fluticasone propion-salmeterol [Advair Diskus] 100-50 mcg/dose blister with device 1 inh INHALATION BID Qty: 60 0RF atorvastatin 80 mg tablet 80 mg PO QAM Qty: 90 3RF clonazepam 2 mg tablet 2 mg PO BID PRN (Reason: Anxiety attacks) 30 Days Qty: 60 2RF hydrocodone-acetaminophen 5-325 mg tablet 1 tab PO Q4H PRN (Reason: pain) 7 Days Qty: 42 0RF ipratropium-albuterol 0.5 mg-3 mg(2.5 mg base)/3 mL solution for nebulization 3 ml INHALATION Q6H PRN (Reason: Shortness Of Breath) budesonide 0.5 mg/2 mL suspension for nebulization 0.5 mg inhalation BID PRN (Reason: copd) methocarbamol 750 mg tablet 750 mg PO Q6H PRN (Reason: spasms) Qty: 20 0RF sertraline [Zoloft] 25 mg tablet 25 mg PO DAILY quetiapine [Seroquel] 50 mg tablet 50 mg PO BEDTIME ondansetron HCl 4 mg tablet 4 mg PO Q8H 5 Days Qty: 20 0RF clopidogrel 75 mg tablet 75 mg PO DAILY Hold Instructions: Resume on 01/09/24. Rx Instructions: TAKE ONE TABLET BY MOUTH DAILY aspirin 81 mg tablet,delayed release (DR/EC) 81 mg PO DAILY Rx Instructions: TAKE 1 TABLET BY MOUTH EVERY MORNING Changed pantoprazole 40 mg tablet,delayed release (DR/EC) 40 mg PO DAILY 30 Days Qty: 30 1RF Discontinued albuterol sulfate [ProAir HFA] 90 mcg/actuation HFA aerosol inhaler 2 puff INHALATION Q4H PRN (Reason: Shortness Of Breath) Qty: 6.7 0RF nicotine 21 mg/24 hr patch 24 hour See Rx Instructions .ROUTE .COMPLEX Qty: 42 0RF Dose Instruction: apply and CHANGE ONE PATCH EVERY DAY FOR SIX weeks Rx Instructions: apply and CHANGE ONE PATCH EVERY DAY FOR SIX weeks nitroglycerin [Nitrostat] 0.4 mg Tablet, Sublingual 0.4 mg SUBLINGUAL Q5M PRN (Reason: Chest Pain) Rx Instructions: do not exceed 3 doses per episode polyethylene glycol 3350 [Miralax] 17 gram/dose powder 17 g PO BID PRN (Reason: constipation) Qty: 238 0RF magnesium hydroxide [Milk of Magnesia] 400 mg/5 mL suspension 20 ml PO BID PRN (Reason: constipation) Qty: 355 0RF magnesium L-lactate 84 mg tablet extended release 84 mg PO DAILY Rx Instructions: TAKE 1 TABLET BY MOUTH EVERY DAY metoclopramide HCl [Reglan] 10 mg tablet 10 mg PO Q6H PRN (Reason: nausea and vomiting) Qty: 20 0RF No Action (DME) Bone Growth Stimulator See Rx Instructions .Route .MEDSUPPLY Qty: 1 0RF Rx Instructions: As directed Discharge Orders: Discharge Order (Routine); Ordered 04/23/24 Ordered By: Christine Bales Discharge Diet: Regular Discharge Activity: Increase activity as tolerated Patient Instructions: Opioid Safety, Pain Management Discharge Attestations Time Spent in Discharge Care*: less than 30 min Time Spent in Smoking Cessation: 3 to 10 minutes Status at Discharge: Cognitive status at discharge: cognitively intact, Behavioral status at discharge: cooperative, Functional status at discharge: independent ambulation, Overall status at discharge: patient is back to baseline Quality Metrics Clinical Quality Measures [ No reported AMI, CVA or VTE this stay] Coding Level of Care Code Acute Code for g Fwd Diagnoses Acute renal insufficiency N28.9 Dehydration E86.0 Acute hyponatremia E87.1 Vomiting R11.10 Abdominal pain R10.9 Anxiety and depression F41.9; F32.A Marijuana use, continuous F12.90 Time Spent (min) 20
[2024-04-23 11:44] VITALS: BP 145/81; PULSE 62; RESP 16; TEMP 36.6; O2SAT 99
--- NOTE | 2024-04-23 11:44 | PC.NURSE ---
Discharge instructions provided to Pt and his . NO questions or concerns at this time. To private vehicle via wheelchair with all belongings.
== END 2024-04-23 11:45 | disposition home or self-care (01) | DRG 683 ==
LOC: ER 13:20 → MEDSURG 14:33
PROVIDERS: Admitting Provider Family Medicine; Emergency Provider Emergency Medicine; Visit Provider Internal Medicine
DX: N17.9 Acute kidney failure, unspecified (principal); E87.1 Hypo-osmolality and hyponatremia; I25.10 Atherosclerotic heart disease of native coronary artery without angina pectoris; J44.9 Chronic obstructive pulmonary disease, unspecified; G89.29 Other chronic pain; M54.50 Low back pain, unspecified; K21.9 Gastro-esophageal reflux disease without esophagitis; E78.2 Mixed hyperlipidemia; I10 Essential (primary) hypertension; G40.909 Epilepsy, unspecified, not intractable, without status epilepticus; F41.9 Anxiety disorder, unspecified; F32.A Depression, unspecified; I25.2 Old myocardial infarction; Z96.651 Presence of right artificial knee joint; F17.210 Nicotine dependence, cigarettes, uncomplicated; E86.0 Dehydration; Z95.5 Presence of coronary angioplasty implant and graft; Z79.899 Other long term (current) drug therapy; Z79.82 Long term (current) use of aspirin; Z88.8 Allergy status to other drugs, medicaments and biological substances; Z88.5 Allergy status to narcotic agent
CPT/HCPCS: 0241U; 36415; 71045; 74176; 80048; 80053; 80306; 81001; 83605; 83690; 83735; 84100; 85025; 86140; 87040; 87086; 96361; 96372; 96374; 96375; 99285; G0378; J1650; J1885; J2405; J7030; Q0162

== ENCOUNTER 2024-04-29 06:00 | Outpatient (RCR) | payer MEDICAID, SELFPAY | END 2024-05-23 23:59 | disposition home or self-care (01) | LOC: SPT 06:00 | PROVIDERS: Visit Provider Orthopaedic Surgery | DX: M54.9 Dorsalgia, unspecified (principal); G89.29 Other chronic pain | CPT/HCPCS: 97110 ==

== ENCOUNTER 2024-05-01 14:08 | Outpatient (CLI) | payer MEDICAID, SELFPAY ==
--- NOTE | 2024-05-01 14:11 | XR_ITS ---
WS: [id number] Exam: XR KUB [id number] Date/Time of Exam: 05/01/2024 2:12 PM Reason For Exam: abdominal pain No bowel obstruction or free air. No sign of organ enlargement. Signs of prior cholecystectomy and jillian mbar fusion. Bony structures are intact. XR/XR KUB [id number] IMPRESSION: 1. No acute abdominal process.
[2024-05-01 14:25] LABS: Basophils # 0.1 10^3/uL (0.0-0.1); Basophils % 1.3 %; Eosinophils # 0.1 10^3/uL (0.0-0.8); Eosinophils % 1.7 %; Hematocrit 41.5 % (37-53); Lymphocytes # 3.2 10^3/uL (0.8-4.8); Lymphocytes % 41.3 %; Mean Corpuscular HGB Conc 33.3 g/dL (30-55); Mean Corpuscular Hemoglobin 31.4 pg (27-33); Mean Corpuscular Volume 94.3 fl (82-101); Mean Platelet Volume 8.3 fL (7.4-10.4); Monocytes # 0.5 10^3/uL (0.2-0.9); Monocytes % 6.3 %; Neutrophils % 49.1 %; Nucleated Red Blood Cells % 0 %; Platelet Count 276 10^3/cmm (157-399); Red Cell Distribution Width 13.5 % (12.1-15.1); White Blood Count 7.73 10^3/uL (3.29-11.43)
[2024-05-01 14:44] LABS: Alanine Aminotransferase 11 U/L (0-41); Albumin Level 4.3 g/dL (3.5-5.2); Alkaline Phosphatase 93 U/L (40-130); Anion Gap 15.3 (5-19); Aspartate Amino Transferase 14 U/L (0-40); Blood Urea Nitrogen 9 mg/dL (6-20); Carbon Dioxide 24 mmol/L (22-29); Chloride 96 mmol/L (98-107); Globulin 2.9 g/dL (1.3-4.6); Glomerular Filtration Rate 101.5 mL/min (90-130); Glucose 89 mg/dL (65-115); Lipase 29 U/L (13-60); Osmolality Calculated 272 mOsm/kg (285-295); Potassium 3.3 mmol/L (3.5-5.1); Sodium 132 mmol/L (136-145); Total Bilirubin 0.5 mg/dL (0.15-1.2); Total Protein 7.2 g/dL (6.6-8.7)
== END 2024-05-01 14:09 | disposition home or self-care (01) ==
PROVIDERS: PCP Pediatrics
DX: R10.9 Unspecified abdominal pain (principal); E87.1 Hypo-osmolality and hyponatremia; Z90.49 Acquired absence of other specified parts of digestive tract; M43.26 Fusion of spine, lumbar region
CPT/HCPCS: 36415; 74018; 80053; 83690; 85025; 86140

== ENCOUNTER → 2024-05-08 16:14 | Outpatient (BNVA) | payer MEDICAID, SELFPAY | PROVIDERS: PCP Pediatrics | DX: E87.1 Hypo-osmolality and hyponatremia (principal) | CPT/HCPCS: 80048 ==

== ENCOUNTER → 2024-06-19 12:54 | Outpatient (BNVA) | payer MEDICAID, SELFPAY | PROVIDERS: Visit Provider Orthopaedic Surgery | DX: Z98.1 Arthrodesis status (principal) | CPT/HCPCS: 72100; 99213 ==

== ENCOUNTER → 2024-06-24 14:47 | Outpatient (BNVA) | payer MEDICAID, SELFPAY | PROVIDERS: Visit Provider Internal Medicine Cardiovascular Disease | DX: R07.9 Chest pain, unspecified (principal); Z79.01 Long term (current) use of anticoagulants; R06.02 Shortness of breath; I25.118 Atherosclerotic heart disease of native coronary artery with other forms of angina pectoris; I10 Essential (primary) hypertension; E78.2 Mixed hyperlipidemia; F12.10 Cannabis abuse, uncomplicated; Z87.891 Personal history of nicotine dependence; R94.31 Abnormal electrocardiogram [ECG] [EKG] | CPT/HCPCS: 36415; 80048; 83880; 85025; 93005; 99214 ==

== ENCOUNTER 2024-07-15 06:05 | Outpatient (CLI) | payer MEDICAID, SELFPAY ==
[2024-07-15] VITALS (11 sets, daily range): BP systolic 91–103; BP diastolic 57–67; PULSE 60–67; RESP 16–20; TEMP 36.5; O2SAT 94–98; BMI 23.8
--- NOTE | 2024-07-15 06:00 | XACV_ITS ---
Ht: 168 cm Wt: 67 kg BSA: 1.78 m2 Gender: Male : 1970 Any Known Allergies: Other Exam Priority: Routine Procedure(s): Procedure Description: Diagnostic procedure Procedure Description: Left Heart Catheterization Procedure Description: Coronary Angiography Greg PLUMMER; Diagnostic Cath Status: Elective Diagnostic Findings * The left main is a medium caliber vessel with no significant is noted lesions. * The left anterior descending artery is a medium caliber vessel which appears to wraparound the LV apex minimally. The proximal LAD was found to have mild diffuse significant laryngitis. Right after the first diagonal branch, there was a segmented area which was found to have around 30 to 40% in-stent narrowing. The distal LAD was found to have no significant lesions. The first diagonal branch was found to have no significant stenotic lesions.. * The left circumflex artery is a medium caliber nondominant vessel with no significant lesions. * The right coronary artery is a medium caliber vessel which had a long stented segment at the mid region. There is around 30 to 40% in-stent narrowing both at the proximal and the distal peristented area. The distal RCA and the PDA/PLV branches are found to no significant lesions.. Conclusions 1. 53-year-old white male with multiple factors for coronary disease and previous PCI's, presenting with increasing episodes of chest pains. He had a Myocardial perfusion imaging which was unremarkable. Because of the ongoing and worsening symptoms, in order to further evaluate his coronary status, a cardiac catheterization was recommended. Patient underwent left heart catheterization with left and right coronary angiogram today. The findings are as follows. 2. Left main has no significant lesions. Left and descending artery was found to have minimal in-stent narrowing in the mid segment. No severe lesions in the circumflex artery. Patent stented segment of the right coronary artery with mild around 30 to 40%.jaqueline stent stenosis. LVEDP of 10 mmHg.. Diagnostic RX Recommendation: medical therapy and/or counseling LV EDP: 10 mmHg Left Ventriculography Findings: * The LV gram was not performed. Pressures Phase:Rest AO : / ( 0 ) @ 8:14:00 AM 97 / 54 ( 73 ) @ 8:14:00 AM 89 / 65 ( 77 ) @ 8:15:00 AM 90 / 66 ( 78 ) @ 8:16:00 AM 110 / 60 ( 81 ) @ 8:27:00 AM 111 / 60 ( 80 ) @ 8:27:00 AM LV : 111 / 3 / 10 @ 8:27:00 AM 110 / 1 / 12 @ 8:27:00 AM Valves Phase:DefaultPhase AV : 0.0 @ 8:46:50 AM AV Mean Gradient: 0.0 @ 8:46:50 AM Clinical Evaluation EBL: 5mL-10mL Procedural Details Procedure Consent Obtained. Admit Source: Out Patient. Pre-Procedure Time Out. Identified patient by full name and date of as verbalized by the patient/guarantor. Does the consent match the physician's order: Yes. Accurate & Complete Informed Consent: Yes. Inpatient/Outpatient History & Physical on Chart: Yes. If H&P is completed, is and addenduem needed: No; If yes, is the addendum complete: N/A. Visualize and Verify Site with Patient/Guarantor: N/A. Relevant Radiology Images available: N/A. The risks, benefits, and alternatives of sedation and/or procedure were discussed by physician. The patient agrees to continue. Procedure started. [facility] Clinical Fraility Score: 3: Managing Well. 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 Chest Pain Symptom Assessment: Typical Angina Symptoms. Cardiovascular Instability: No. Correct patient, site and procedure confirmed by cath team. Current diagnosis: Chest Pain; ASHD; Abnormal stress test. PERRLA. Strong, equal hand tank calibrator bilaterally. Lungs clear x 5 lobes. IV Site on Arrival: 20 gauge in the left anticubital. IV Fluids: 0.9% NaCl at KVO. 0 mL infused prior to sugar laboratory assistant. Pre Procedural Pulses: bilateral dorsalis pedis was Doppled. Pre Procedural Pulses: bilateral posterior tibial was Doppled. Pre Procedural Pulses: bilateral radial was 3+. Oxygen started at 3liters/min via nasal canula. right groin was prepped with chloroprep then draped in the usual sterile fashion. right radial was prepped with chloroprep then draped in the usual sterile fashion. Physician notified. Baseline sample Acquired. HR: 51 BPM. Physician arrived. Family updated by MD prior to the start of the procedure. Physician scrubbed in. Immediate Pre-Procedure Time Out. Correct Patient: Yes; Correct Procedure: Yes; Correct Site: Yes; Correct Patient Position: Yes; Correct Supplies: Yes; Dried Flammable Prep: Yes; Blood Products Available: N/A;. Lidocaine 1% infiltrated to the right groin. Arterial access obtained. A 5 [place] JL4 catheter in over wire. Multiple views taken of left coronary artery. Catheter removed over the standard wire. A 5 [place] JR4 catheter in over wire. Multiple views taken of right coronary artery. Dr Callejas here to review films. Attempting to cross the catheter over the wire into the ventricle. Catheter removed over the standard wire. A 5 [place] Angled Pig catheter in over wire. EDP Sample taken: LV 111/3,10; HR: 59 BPM; SpO2: 100%. Pullback taken: LV 110/1,12; AO 110/60(81); Mean: 0mmHg, Peak to Peak: 0mmHg, SEP: 5sec/min; HR: 58 BPM; SpO2: 100%. Catheter removed over the standard wire. A Right femoral angiogram was performed to determine safe placement of closure device. Dr Callejas Scrubbed in. Dr Garza scrubbed out. A Mynx was successful obtaining hemostatsis at the Right Femoral artery insertion site. Mynx placed without complications. No signs or symptoms of hematoma noted. Sterile dressing applied per usual sterile fashion. LOT [id number] EXP 06/13/2026. Post Procedure: Pulses reassessed and unchanged. PERRLA. Strong, equal hand tank calibrator bilaterally. No VTE prophylaxis required. Medication waste: Nitro- 50 mg Verapamil- 5 mg Fentanyl- 75 mcg Heparin- 1000 units. Total IV fluids: 280 mL. Fluoro: 4:07. Contrast type used: Omnipaque 300 mg/mL, 150 mL bottle. [id number]. Post-op diagnosis: Minimal In Stent Restenosis. Complications: None. Estimated blood loss: 5mL-10mL. Responsiveness - Normal response to verbal stimuli; alert and oriented, PERRLA. Airway - Unaffected, no intervention required; spontaneous ventilation. Circulation: W/N/L, pulses unchanged. Nausea/Vomiting: No. Procedure completed. Vital chart was stopped. Current Diagnosis : Chest Pain. Patient transferred by bed to CPRU. Access Site Site: Right Femoral artery Sheath Size: 6 Fr Hemostasis Method: Mynx Hemostasis Success: Successful Procedure Medications Start: 7:53 AM Stop: 7:53 AM Medication: Benadryl Amount: 25 mg Route: I.V. Start: 7:54 AM Stop: 7:54 AM Medication: Versed 1 mg and Fentanyl 25 mcg Amount: 1 Route: I.V. Start: 7:56 AM Stop: 7:56 AM Medication: 0.9% Saline Amount: 250 ml Route: I.V. bolus Start: 8:19 AM Stop: 8:19 AM Medication: Versed Amount: 1 mg Route: I.V. I, the attending physician, have reviewed and verified all procedure medications. Yes, all medications given per verbal order History/Risk Factors Hypertension: Yes Dyslipidemia: Yes Peripheral Arterial Disease (PAD): No Myocardial Infarction ([place]): Yes Obesity: No Renal Disease: No Tobacco Use: Current/Recent(w/in 1 year) Prior Interventions PCI: Yes CABG: No Valve Surgery: No Date of PCI: 08/16/2021 Report Signatures Finalized by Dr Placido Garza MD [facility] on 07/16/2024 12:18 AM
[2024-07-15 06:49] LABS: Basophils # 0.1 10^3/uL (0.0-0.1); Basophils % 0.9 %; Eosinophils # 0.2 10^3/uL (0.0-0.8); Eosinophils % 3.4 %; Hematocrit 38.1 % (37-53); Lymphocytes # 1.6 10^3/uL (0.8-4.8); Lymphocytes % 24.1 %; Mean Corpuscular HGB Conc 32.8 g/dL (30-55); Mean Corpuscular Hemoglobin 32.6 pg (27-33); Mean Corpuscular Volume 99.5 fl (82-101); Mean Platelet Volume 8.8 fL (7.4-10.4); Monocytes # 0.5 10^3/uL (0.2-0.9); Neutrophils # 4.37 10^3/uL (1.8-7.7); Neutrophils % 64.2 %; Nucleated Red Blood Cells % 0 %; Platelet Count 237 10^3/cmm (157-399); Red Blood Count 3.83 10^6/uL (3.85-5.65); Red Cell Distribution Width 13.2 % (12.1-15.1); White Blood Count 6.81 10^3/uL (3.29-11.43)
[2024-07-15 07:09] LABS: Anion Gap 14.9 (5-19); Blood Urea Nitrogen 16 mg/dL (6-20); Calcium 9.4 mg/dL (8.5-10.5); Carbon Dioxide 21 mmol/L (22-29); Chloride 109 mmol/L (98-107); Glomerular Filtration Rate 88.6 mL/min (90-130); Glucose 99 mg/dL (65-115); Osmolality Calculated 293 mOsm/kg (285-295); Potassium 3.9 mmol/L (3.5-5.1); Sodium 141 mmol/L (136-145)
--- NOTE | 2024-07-15 07:49 | W.PM.OPSUD ---
Surgery/Procedure H&P Update DATE OF PROCEDURE: July 15, 2024 DATE H&P PERFORMED: 06/24/24 H&P UPDATE INFORMATION: I have reviewed H&P completed within last 30 days and I have examined patient prior to procedure PREOP DIAGNOSIS: ASHD PRIMARY INDICATION FOR PROCEDURE: CP/ASHD PLANNED PROCEDURE: Operation Date: 07/15/24 07:00 Proposed Procedures p Cardiac Catheterization - C w/wo LV & Coros(Left) - Placido Garza MD PATIENT REASSESSED PRIOR TO SEDATION, WITH NO CHANGE NOTED: Yes PHYSICAL EXAM: alert, oriented x 3, clear to auscultation bilaterally, regular rate & rhythm and operative site marked AIRWAY EVAL/ANESTHESIA PLAN: normal airway, see other exam findings, ASA III, Monitored Anesthesia, Local Anesthesia, Risks, benefits & alternatives of sedation and/or procedure discussed and Patient agrees to continue as planned ADDITIONAL INFORMATION: This patient has a history of stomach discomfort with beef and pork. He can eat chicken /turkey and from He understands the risk of heparin He wants to take a chance and go ahead with the procedure radially
--- NOTE | 2024-07-15 09:00 | SUR.PHASEII ---
POST CATH NOTE Received patient from quality assurance/r&d lab technician. Status post cardiac catheterization via the right femoral approach. Site with bioclusive and 4x4 dressing and clean dry and intact. Verbal post cath instructions given to the patient/family. They understood well. See vitals and assessments per flowsheet. Call Light within reach. Informed to call for needs.
--- NOTE | 2024-07-15 09:38 | SUR.PHASEII ---
POST OF FLUIDS ADJUSTED TO 100 ML/HR PER DR VIRGINIA HANCOCK
--- NOTE | 2024-07-15 12:50 | SUR.PHASEII ---
POSITON CHANGE Patient up to 60 degress in bed. States uncomfortable. Assisted with position change. No change in groin assessment. Verbal post cath instructions went over again with patient/Family. They understood well.
--- NOTE | 2024-07-15 13:10 | SUR.PHASEII ---
BEDREST COMPLETE Patient up and walking around unit. No s/s of active bleed or hematoma formation.
== END 2024-07-15 06:06 | disposition home or self-care (01) ==
PROVIDERS: Visit Provider Internal Medicine Cardiovascular Disease
DX: I25.118 Atherosclerotic heart disease of native coronary artery with other forms of angina pectoris (principal); I49.9 Cardiac arrhythmia, unspecified; I10 Essential (primary) hypertension; E78.2 Mixed hyperlipidemia; Z87.891 Personal history of nicotine dependence; J44.9 Chronic obstructive pulmonary disease, unspecified; I25.2 Old myocardial infarction; F12.10 Cannabis abuse, uncomplicated
CPT/HCPCS: 80048; 85025; J1200; J1644; J2250; J3010; J3490; J7030; J7613; J7626

== ENCOUNTER → 2024-07-28 16:03 | Outpatient (BNVA) | payer MEDICAID, SELFPAY | PROVIDERS: Visit Provider Nurse Practitioner Family | DX: I25.10 Atherosclerotic heart disease of native coronary artery without angina pectoris (principal); Z87.891 Personal history of nicotine dependence; I95.9 Hypotension, unspecified | CPT/HCPCS: 99214 ==

== ENCOUNTER 2024-08-24 08:09 | Inpatient (IN) | payer MEDICAID, SELFPAY ==
[2024-08-24] VITALS (10 sets, daily range): BP systolic 110–150; BP diastolic 69–126; PULSE 62–87; RESP 15–18; TEMP 36.6–36.7; O2SAT 97–100; BMI 23.2
[2024-08-24 09:29] LABS: Basophils # 0.1 10^3/uL (0.0-0.1); Basophils % 0.3 %; Eosinophils % 0.2 %; Hematocrit 47.2 % (37-53); Lymphocytes # 2.7 10^3/uL (0.8-4.8); Lymphocytes % 14.3 %; Mean Corpuscular HGB Conc 36.4 g/dL (30-55); Mean Corpuscular Volume 90.6 fl (82-101); Mean Platelet Volume 8.5 fL (7.4-10.4); Monocytes # 1.2 10^3/uL (0.2-0.9); Monocytes % 6.1 %; Neutrophils # 14.87 10^3/uL (1.8-7.7); Neutrophils % 78.1 %; Nucleated Red Blood Cells % 0 %; Platelet Count 397 10^3/cmm (157-399); Red Blood Count 5.21 10^6/uL (3.85-5.65); Red Cell Distribution Width 11.9 % (12.1-15.1); White Blood Count 19.03 10^3/uL (3.29-11.43)
[2024-08-24] MEDS: ondansetron 2 mg/ML SDV 2 mL 8 MG IVP (09:31)
[2024-08-24] MEDS: sodium chloride 0.9% 1,000 ML 999 ML IV ×2 (09:31→11:14)
[2024-08-24 09:46] LABS: Alanine Aminotransferase 40 U/L (0-41); Albumin Level 5.5 g/dL (3.5-5.2); Alkaline Phosphatase 122 U/L (40-130); Anion Gap 29.4 (5-19); Aspartate Amino Transferase 150 U/L (0-40); Blood Urea Nitrogen 68 mg/dL (6-20); Calcium 10.1 mg/dL (8.5-10.5); Carbon Dioxide 16 mmol/L (22-29); Chloride 79 mmol/L (98-107); Creatinine Clr Calc Pharmacy 32.7998; Globulin 3.3 g/dL (1.3-4.6); Glomerular Filtration Rate 28.6 mL/min (90-130); Glucose 121 mg/dL (65-115); Lipase 35 U/L (13-60); Magnesium 1.8 mg/dL (1.7-2.3); Osmolality Calculated 271 mOsm/kg (285-295); Potassium 4.4 mmol/L (3.5-5.1); Sodium 120 mmol/L (136-145); Total Bilirubin 1.7 mg/dL (0.15-1.2); Total Protein 8.8 g/dL (6.6-8.7)
[2024-08-24 10:09] LABS: Bilirubin Urine Negative (Negative); Blood Urine 2+ (Negative); Glucose Urine UA Negative (Normal); Ketones Urine Trace (Negative); Leukocyte Esterase Urine Negative (Negative); Nitrate Urine Negative (Negative); Protein Urine 1+ (Negative); Urine Appearance Clear (CLEAR); Urine Color Yellow (Yellow); Urobilinogen Urine 0.2 mg/dL (Negative); pH Urine 5.5 (5-7)
[2024-08-24 10:15] LABS: Add Urine Microscopic? YES; Bacteria Urine None Seen /hpf; Squamous Epithelial Cell Urine 0-5 /hpf (0-5); WBC Urine 0-5 /hpf (0-5)
[2024-08-24 10:27] LABS: UA Slide Review UA Slide Review Perf
--- NOTE | 2024-08-24 10:35 | CTR_ITS ---
PROCEDURE INFORMATION: Exam: CT Abdomen And Pelvis Without Contrast Exam date and time: 08/24/2024 10:47 AM Age: 53 years old Clinical indication: Nausea and vomiting; Additional info: N/v/d, gen abd pain, admitting for n/v/d suspected gastroenteritis. R/O TECHNIQUE: Imaging protocol: Computed tomography of the abdomen and pelvis without contrast. Radiation optimization: All CT scans at this facility use at least one of these dose optimization techniques: automated exposure control; mA and/or kV adjustment per patient size (includes targeted exams where dose is matched to clinical indication); or iterative reconstruction. COMPARISON: CT abdomen pelvis wo con [id number] 04/20/2024 9:49 AM RADIATION DOSE METRICS: Total DLP (mGy-cm): 425.84 FINDINGS: Lungs: Subpleural reticulation of the left lingula. Left calcified granuloma. Left lower lobe solid 5 mm nodule (series 4, image 11). Coronary arteries: Coronary artery calcification. Liver: Normal. No mass. Gallbladder and biliary ducts: Status post cholecystectomy. Pancreas: Mild pancreatic atrophy. Spleen: Normal. No splenomegaly. Adrenal glands: Normal. No mass. Kidneys and ureters: Left midpole exophytic 1.4 cm complex renal cyst measuring 26 Hounsfield units, similar on prior contrasted CT likely benign etiology. Punctate nonobstructive left nephrolithiasis Stomach and bowel: Colonic diverticulosis without diverticulitis. Nonspecific prominence of the jejunum up to 3.0 cm with mild bowel wall thickening up to 6 mm. No findings of obstruction. Appendix: Status post appendectomy. Intraperitoneal space: Unremarkable. No free air. No significant fluid collection. Vasculature: Scattered atherosclerotic disease of the thoracoabdominal aorta and its major branches. Lymph nodes: Unremarkable. No enlarged lymph nodes. Urinary bladder: Unremarkable as visualized. Reproductive: Mild prostatomegaly with calcifications. Bones/joints: Posterior spinal fixation of L4-S1 which is grossly intact. Soft tissues: Injection granuloma of the right gluteal subcutaneous tissues. CT/CT abdomen pelvis wo con [id number] IMPRESSION: 1. Mild prominent jejunum with bowel wall thickening suggestive of infectious/inflammatory colitis. 2. Left lower lobe 5 mm solid nodule. In a low risk individual no routine follow-up is recommended. In a high-risk individual optional CT at 12 months can be considered. 3. Coronary artery calcification.
--- NOTE | 2024-08-24 10:37 | ED_ITS ---
HPI - Nausea/Vomiting/Diarrhea 2 General: Chief complaint: Nausea/Vomiting/Diarrhea Stated complaint: n/v Time Seen by Provider: 08/24/24 08:28 History of Present Illness: 53-year-old male presents emergency depa rtment complaining of 4 days of nausea vomiting and diarrhea. He has been having diarrhea about 5 times a day and vomiting anytime he tries to eat or drink something. He has had chills but no fever. He does have a history of alpha gal and therefore is pretty careful in what he eats. His only travel was to [place] last week. No known sick contacts. No blood in the stool. Surgical history of cholecystectomy and appendectomy. Patient feels dehydrated, weak. He is having intermittent generalized abdominal pain and cramping. He does have a history of C. difficile. No recent antibiotic use. Denies respiratory symptoms. His urine output has decreased and gotten very dark. His only URI symptoms of sore throat. Associated symtoms: Denies altered mental status, change in vision, chest pain, dysuria, headache(s) or syncope Related Data Home Medications Medication Instructions Recorded Confirmed albuterol sulfate 2.5 mg/3 mL 2.5 mg inhalation BID PRN 03/14/23 08/24/24 (0.083 %) solution for nebulization Shortness Of Breath atorvastatin 80 mg tablet 80 mg PO DAILY 05/08/24 08/24/24 albuterol sulfate 90 mcg/actuation 2 puff inhalation Q4H PRN 08/24/24 08/24/24 aerosol inhaler (Ventolin HFA) Shortness Of Breath aspirin 81 mg tablet,delayed 81 mg PO QAM 08/24/24 08/24/24 release nicotine 21 mg/24 hr daily See Rx Instructions .Route .COMPLEX 08/24/24 08/24/24 transdermal patch ondansetron HCl 4 mg tablet 4 mg PO Q8H PRN Nausea 08/24/24 08/24/24 zonisamide 100 mg capsule 200 mg PO BID 08/24/24 08/24/24 Previous Rx's Medication Instructions Recorded Bone Growth Stimulator #1 ea 01/04/24 fluticasone 100 mcg-salmeterol 50 1 inh inhalation BID #60 ea 02/05/24 mcg/dose blistr powdr for inhalation (Advair Diskus) nitroglycerin 0.4 mg sublingual 0.4 mg sublingual Q5M PRN chest 02/06/24 tablet pain 30 days #30 tabs potassium chloride 20 mEq 20 meq PO BID 10 days #20 tabs 05/01/24 tablet,extended release(part/cryst) (Klor-Con M) clonazepam 2 mg tablet 2 mg PO BID PRN Anxiety attacks 30 06/02/24 days #60 tabs tamsulosin 0.4 mg capsule 0.4 mg PO QAM #90 caps 06/06/24 isosorbide mononitrate 30 mg 30 mg PO DAILY #30 tabs 06/24/24 tablet,extended release 24 hr buspirone 30 mg tablet 30 mg PO BID #60 tabs 07/09/24 ranolazine 500 mg tablet,extended 500 mg PO BID #60 tabs 07/15/24 release,12 hr hydrocodone 5 mg-acetaminophen 325 1 tab PO Q12H PRN pain 28 days #56 07/25/24 mg tablet tabs budesonide 0.5 mg/2 mL suspension 0.5 mg (2 mL) inhalation BID PRN 07/28/24 for nebulization copd #60 mL clopidogrel 75 mg tablet 75 mg PO DAILY #90 tabs 07/28/24 quetiapine 50 mg tablet (Seroquel) 50 mg PO BEDTIME #90 tabs 07/28/24 pantoprazole 40 mg tablet,delayed 40 mg PO DAILY 30 days #30 tabs 08/13/24 release fluoxetine 20 mg tablet 20 mg PO DAILY #60 tabs 08/18/24 Allergies Allergy/AdvReac Type Severity Reaction Status Date / Time meperidine [From Demerol] Allergy Severe ALGY-Hives Verified 08/18/24 12:48 Alpha-Gal Allergy upset GI Verified 08/18/24 12:48 ([id number]-2,3-Gala [[id number]-8,3-Galactose (Alph] gabapentin AdvReac Severe ADR-Seizure Verified 08/18/24 12:48 morphine AdvReac Severe ALGY-Hives Verified 08/18/24 12:48 tramadol AdvReac Severe ADR-Seizure Verified 08/18/24 12:48 Review of Systems 2 General: Reports: 10 or more systems reviewed and unremarkable except in HPI and below Const: Denies: fever(s) or body aches Eyes: Denies: change in vision Card: Denies: chest pain, edema or syncope Resp: Denies: dyspnea or productive cough : Denies: flank pain, dysuria or urinary frequency Musc: Denies: neck pain, back pain, extremity pain or extremity swelling Skin/Breast: Denies: rash or erythema Neuro: Denies: headache(s), numbness in extremities or lack of coordination PFSH ED 2 PFSH: Medical History Moderate major depression Generalized anxiety disorder Alpha-gal syndrome Heart failure with mildly reduced ejection fraction (HFmrEF) Depression Chronic abdominal pain Hyponatremia Marijuana use, continuous H. pylori duodenitis Elevated glucose Anxiety and depression Screening for lung cancer Alpha galactosidase deficiency C. difficile colitis Atherosclerosis of coronary artery Medical marijuana use Diverticulosis seen in colonoscopy in 2023 GERD (gastroesophageal reflux disease) Chronic pancreatitis Urethral stricture COPD (chronic obstructive pulmonary disease) Essential (primary) hypertension Seizure disorder Mixed hyperlipidemia Osteoarthritis rt knee, cervical and Lumbar spine Heart attack Surgical History History of esophagogastroduodenoscopy (EGD) 2021. Showing esophagitis, gastritis, and duodenitis with + H.pylori biopsies History of back surgery Status post right knee replacement Status post right knee replacement Hx of reconstruction of anterior cruciate ligament tear H/O neck surgery H/O left knee surgery History of appendectomy History of cholecystectomy H/O right knee surgery H/O chest tube placement H/O removal of testicle Stented coronary artery Family History Brother Parkinson disease Cancer Diabetes Stroke Family/Other Cancer Chronic kidney disease (CKD) Suicide Grandmother CAD (coronary artery disease) Cancer Lung disease Grandfather Dementia Mother Lung disease Father Suicide Denies family history of Clotting disorder Anesthesia complication Bleeding disorder Social History Smoking and tobacco/nicotine status: current every day tobacco/nicotine user cigarettes [ Other cigarette details: 1cig, 40PY] Quit status (tobacco/nicotine): has tried quititng Alcohol intake: never Substance/Drug Use: current Substance/Drug use frequency: daily Other substance/drug use details: medical card Lives independently: Yes Household members: significant other service: No Current occupational status: disabled Current occupational exposures/hazards: Yes Do you think of yourself as: Straight/Heterosexual Current gender identity: Male Physical Exam 2 Narrative: EXAM NARRATIVE: Notable findings include an alert patient who is able to sit himself up in bed and engage in conversation. He is answering all my questions appropriately. He does look ill but is not in overt distress. His abdomen is soft but he does have generalized tenderness without rebound or guarding. There are no appreciable masses. He does not have peritonitis. He has a 1+ radial pulse, normal heart rate, dry mucous membranes, normal active bowel sounds. He occasionally has a cough but his lungs sound clear. Const: COMMON NORMALS: no limitations, alert and well nourished EXAM LIMITATIONS: no altered mental status HENMT: COMMON NORMALS: normocephalic, atraumatic and external ears normal H EAD & SCALP: normocephalic and atraumatic EXTERNAL EAR: Yes external ears normal MOUTH: no muffled voice Eye: COMMON NORMALS: EOMs intact bilaterally, conjunctivae normal and no scleral icterus CONJUNCTIVA: Yes conjunctivae normal Neck/C-Spine: GENERAL: Yes normal visual inspection and Yes trachea midline Resp: COMMON NORMALS: normal respiratory effort, No use of accessory muscles and clear to auscultation bilaterally AUSCULTATION: clear to auscultation bilaterally Cardio: COMMON NORMALS: regular rhythm RHYTHM: regular rhythm GI: COMMON NORMALS: Soft to palpation PALPATION: Yes Soft to palpation Extremity: COMMON NORMALS: normal to inspection Neuro: COMMON NORMALS: moves all extremities, no focal motor deficits and no sensory deficits noted SENSORIUM/ORIENTATION: Yes alert SPEECH: speech normal Psych: COMMON NORMALS: mental status grossly normal, Normal thought process present, cooperative, normal affect and speech normal SPEECH: Yes normal speech THOUGHT PROCESS: Normal thought process present Skin: COMMON NORMALS: no rashes or lesions noted and no jaundice GENERAL SKIN EXAM: no rashes or lesions noted Course 2 Vital Signs: Vital signs: Vital Signs Temperature 97.9 F 08/24/24 08:22 Pulse Rate 71 08/24/24 12:06 Respiratory Rate 18 08/24/24 08:22 Blood Pressure 134/94 08/24/24 12:06 Pulse Oximetry 100 08/24/24 12:06 Oxygen Delivery Me thod Room Air 08/24/24 08:22 MDM - Nausea/Vomiting/Diarrhea Medical Decision Making Acute nausea vomiting diarrhea with dehydration. Differential diagnosis includes viral, bacterial, toxin mediated, and food mediated illnesses. I did not get any focality on his abdominal exam and he does not have peritonitis. He does have a history of C. difficile colitis, alpha gal, and chronic pancreatitis. White blood cell count is 19, he is hemoconcentrated with a hemoglobin of 17.2, significant hyponatremia with a sodium of 120 and a chloride of 79. Acute uremia and GIULIA with a BUN of 68 and a creatinine of 2.4. The patient also is exhibiting a increased anion gap metabolic acidosis. This is probably related to starvation ketosis coupled with dehydration and possible lactic acidosis. Patient does have hyaline casts in his urine along with his GIULIA. 2 L of IV fluids have been ordered initially. I have ordered stool studies. He is having about 5 episodes of diarrhea per day. It seems like his vomiting is more significant than the diarrhea so this makes C. difficile a little less likely. Although the pretest suspicion for acute/surgical abdomen is low, I am going to proceed with a CT scan of the abdomen pelvis without contrast to rule out any colitis, diverticulitis, perforation, etc. since the patient will be admitted to the hospitalist Lab Data 08/24/24 09:24 08/24/24 09:24 Radiology Impressions Abdomen/Pelvis CT 08/24/24 10:35 IMPRESSION: 1. Mild prominent jejunum with bowel wall thickening suggestive of infectious/inflammatory colitis. 2. Left lower lobe 5 mm solid nodule. In a low risk individual no routine follow-up is recommended. In a high-risk individual optional CT at 12 months can be considered. 3. Coronary artery calcification. Laboratory Results WBC 19.03 10^3/uL (3.29-11.43) H 08/24/24 09:24 RBC 5.21 10^6/uL (3.85-5.65) 08/24/24 09:24 Hgb 17.20 g/dL (11.27-16.99) H 08/24/24 09:24 Hct 47.2 % (37-53) 08/24/24 09:24 MCV 90.6 fl (82-101) 08/24/24 09:24 MCH 33.0 pg (27-33) 08/24/24 09:24 MCHC 36.4 g/dL (30-55) 08/24/24 09:24 RDW 11.9 % (12.1-15.1) L 08/24/24 09:24 Plt Count 397 10^3/cmm (157-399) 08/24/24 09:24 MPV 8.5 fL (7.4-10.4) 08/24/24 09:24 Neut % (Auto) 78.1 % 08/24/24 09:24 Lymph % (Auto) 14.3 % 08/24/24 09:24 [place] % (Auto) 6.1 % 08/24/24 09:24 Eos % (Auto) 0.2 % 08/24/24 09:24 Baso % (Auto) 0.3 % 08/24/24 09:24 Neut # (Auto) 14.87 10^3/uL (1.8-7.7) H 08/24/24 09:24 Lymph # (Auto) 2.7 10^3/uL (0.8-4.8) 08/24/24 09:24 [place] # (Auto) 1.2 10^3/uL (0.2-0.9) H 08/24/24 09:24 Eos # (Auto) 0.0 10^3/uL (0.0-0.8) 08/24/24 09:24 Baso # (Auto) 0.1 10^3/uL (0.0-0.1) 08/24/24 09:24 Nucleated RBC % (auto) 0 % 08/24/24 09:24 Nucleated RBCs # 0.0 /100WBC 08/24/24 09:24 Sodium 120 mmol/L (136-145) L 08/24/24 09:24 Potassium 4.4 mmol/L (3.5-5.1) 08/24/24 09:24 Chloride 79 mmol/L (98-107) L 08/24/24 09:24 Carbon Dioxide 16 mmol/L (22-29) L 08/24/24 09:24 Anion Gap 29.4 (5-19) H 08/24/24 09:24 BUN 68 mg/dL (6-20) H 08/24/24 09:24 Creatinine 2.4 mg/dL (0.7-1.2) H 08/24/24 09:24 GFR Calculation 28.6 mL/min (90-130) L 08/24/24 09:24 Glucose 121 mg/dL (65-115) H 08/24/24 09:24 Calculated Osmolality 271 mOsm/kg (285-295) L 08/24/24 09:24 Calcium 10.1 mg/dL (8.5-10.5) 08/24/24 09:24 Magnesium 1.8 mg/dL (1.7-2.3) 08/24/24 09:24 Total Bilirubin 1.7 mg/dL (0.15-1.2) H 08/24/24 09:24 AST 150 U/L (0-40) H 08/24/24 09:24 ALT 40 U/L (0-41) 08/24/24 09:24 Alkaline Phosphatase 122 U/L (40-130) 08/24/24 09:24 Total Protein 8.8 g/dL (6.6-8.7) H 08/24/24 09:24 Albumin 5.5 g/dL (3.5-5.2) H 08/24/24 09:24 Globulin 3.3 g/dL (1.3-4.6) 08/24/24 09:24 Lipase 35 U/L (13-60) 08/24/24 09:24 Urine Color Yellow (Yellow) 08/24/24 09:59 Urine Appearance Clear (CLEAR) 08/24/24 09:59 Urine pH 5.5 (5-7) 08/24/24 09:59 Ur Specific [place] 1.020 (1.005-1.030) 08/24/24 09:59 Urine Protein 1+ (Negative) A 08/24/24 09:59 Urine Glucose (UA) Negative (Normal) 08/24/24 09:59 Urine Ketones Trace (Negative) 08/24/24 09:59 Urine Blood 2+ (Negative) A 08/24/24 09:59 Urine Nitrate Negative (Negative) 08/24/24 09:59 Urine Bilirubin Negative (Negative) 08/24/24 09:59 Urine Urobilinogen 0.2 mg/dL (Negative) 08/24/24 09:59 Ur Leukocyte Esterase Negative (Negative) 08/24/24 09:59 Urine RBC 3-5 /hpf (0-2) 08/24/24 09:59 Urine WBC 0-5 /hpf (0-5) 08/24/24 09:59 Ur Squamous Epith Cells 0-5 /hpf (0-5) 08/24/24 09:59 Amorphous Sediment Not Reportable 08/24/24 09:59 Urine Bacteria None seen /hpf (NONE) 08/24/24 09:59 Hyaline Casts 45.90 /lpf 08/24/24 09:59 All radiology interpretation(s) finalized by discharge Discharge Plan Discharge Patient Disposition: Admitted As Inpatient Clinical Impression: Nausea vomiting and diarrhea, Acute uremia, GIULIA (acute kidney injury), Acute dehydration, Metabolic acidosis, increased anion gap, Acute hyponatremia Condition: Stable Prescriptions: No Action albuterol sulfate 2.5 mg /3 mL (0.083 %) solution for nebulization 2.5 mg inhalation BID PRN (Reason: Shortness Of Breath) nitroglycerin 0.4 mg tablet, sublingual 0.4 mg sublingual Q5M PRN (Reason: chest pain) 30 Days Qty: 30 3RF Rx Instructions: until response; do not exceed 3 doses per episode buspirone 30 mg tablet 30 mg PO BID Qty: 60 2RF isosorbide mononitrate 30 mg tablet extended release 24 hr 30 mg PO DAILY Qty: 30 5RF fluoxetine 20 mg tablet 20 mg PO DAILY Qty: 60 1RF fluticasone propion-salmeterol [Advair Diskus] 100-50 mcg/dose blister with device 1 inh INHALATION BID Qty: 60 0RF atorvastatin 80 mg tablet 80 mg PO DAILY (DME) Bone Growth Stimulator See Rx Instructions .Route .MEDSUPPLY Qty: 1 0RF Rx Instructions: As directed Klor-Con M20 20 mEq tablet,ER particles/crystals 20 meq PO BID 10 Days Qty: 20 0RF clonazepam 2 mg tablet 2 mg PO BID PRN (Reason: Anxiety attacks) 30 Days Qty: 60 2RF tamsulosin 0.4 mg capsule 0.4 mg PO QAM Qty: 90 0RF hydrocodone-acetaminophen 5-325 mg tablet 1 tab PO Q12H PRN (Reason: pain) 28 Days Qty: 56 0RF budesonide 0.5 mg/2 mL suspension for nebulization 0.5 mg inhalation BID PRN (Reason: copd) Qty: 60 0RF clopidogrel 75 mg tablet 75 mg PO DAILY Qty: 90 0RF Hold Instructions: Resume on 01/09/24. quetiapine [Seroquel] 50 mg tablet 50 mg PO BEDTIME Qty: 90 0RF pantoprazole 40 mg tablet,delayed release (DR/EC) 40 mg PO DAILY 30 Days Qty: 30 1RF ranolazine 500 mg tablet extended release 12 hr 500 mg PO BID Qty: 60 3RF albuterol sulfate [Ventolin HFA] 90 mcg/actuation HFA aerosol inhaler 2 puff INHALATION Q4H PRN (Reason: Shortness Of Breath) nicotine 21 mg/24 hr patch 24 hour See Rx Instructions .ROUTE .COMPLEX Rx Instructions: Apply and change one patch daily for 6 weeks. ondansetron HCl 4 mg tablet 4 mg PO Q8H PRN (Reason: Nausea) aspirin 81 mg tablet,delayed release (DR/EC) 81 mg PO QAM zonisamide 100 mg capsule 200 mg PO BID Referrals: Jarrell Espino MD [Primary Care Provider] - Coding Level of Care Code ED Custodial Manager for [place]
[2024-08-24] MEDS: HYDROmorphone 1 mg/mL INJ 1 mL 0.5 MG IVP ×2 (11:15→14:47)
[2024-08-24] MEDS: piperacillin-tazobactam 3.375 GM in sodium chloride 0.9% (plus) 50 ML IV ×2 (16:34→22:36)
--- NOTE | 2024-08-24 17:06 | PM.HP ---
Providers/Chief Complaint Admitting Physician: Kaia Gurrola MD Primary Care Provider: Jarrell Espino MD Chief Complaint: n/v History of Present Illness Capron Jack Cheng is a 53 year old male with significant past medical history of CAD,, post PCI, general anxiety disorder, depression, alpha gal, GERD, C. difficile colitis presents to the ER today with complaints of nausea, vomiting, diarrhea ongoing for last 4 days. Patient has been having nausea and vomiting for last 3 days and started having diarrhea last night hence came to the ER. He has been having dizziness since last night. In the ER he was found to have white count of 19.3, acute hyponatremia with sodium of 120, creatinine of 2.4. Denies any sick contacts, eating out, changes in his medications, difficulty in breathing, runny nose or cough. Review of Systems General: Reports: 10 or more systems reviewed and unremarkable except in HPI and below Const: Denies: fever(s), chills or body aches Eyes: Denies: change in vision, blurry vision or photophobia ENMT: Reports: hoarseness; Denies: throat pain, enlarged tonsils, odynophagia or nasal congestion Card: Denies: chest pain, palpitations, irregular heart rhythm, edema, swelling of feet/ankles, lightheadedness, pre-syncope, dyspnea on exertion or orthopnea Resp: Denies: dyspnea, productive cough, non-productive cough, wheezing, stridor, pain on inspiration, change in phlegm color, hemoptysis or chest congestion GI: Denies: abdominal pain, nausea, vomiting, hematemesis, coffee ground emesis, dysphagia, heartburn, diarrhea, constipation, GI cramping, change in stool character, hematochezia or melena : Denies: flank pain, dysuria, urinary frequency, urinary urgency, urinary hesitancy or hematuria Musc: Denies: neck pain, back pain, extremity pain, joint swelling, joint warmth or deformity Neuro: Denies: headache(s), numbness in extremities, weakness in extremities, sensory changes, difficulty walking, frequent falls, dizziness, vertigo, behavioral changes, Slurred speech present or seizure-like activity Psych: Denies: anxiety, depression, suicidal ideation or homicidal ideation Endo: Denies: polyuria, polydipsia, tired all the time, cold intolerance or hot flashes Trevon/Lymph: Denies: easy bruising or easy bleeding Medications/Allergies Home Medications Medication Instructions Recorded Confirmed Last Taken Type albuterol sulfate 2.5 mg/3 mL 2.5 mg inhalation BID PRN 03/14/23 08/24/24 07/15/24 05:15 History (0.083 %) solution for nebulization Shortness Of Breath Bone Growth Stimulator #1 ea 01/04/24 08/24/24 07/15/24 05:15 Rx fluticasone 100 mcg-salmeterol 50 1 inh inhalation BID #60 ea 02/05/24 08/24/24 08/21/24 Rx mcg/dose blistr powdr for inhalation (Advair Diskus) nitroglycerin 0.4 mg sublingual 0.4 mg sublingual Q5M PRN chest 02/06/24 08/24/24 Unknown Rx tablet pain 30 days #30 tabs potassium chloride 20 mEq 20 meq PO BID 10 days #20 tabs 05/01/24 08/24/24 08/21/24 Rx tablet,extended release(part/cryst) (Klor-Con M) atorvastatin 80 mg tablet 80 mg PO DAILY 05/08/24 08/24/24 08/21/24 History clonazepam 2 mg tablet 2 mg PO BID PRN Anxiety attacks 30 06/02/24 08/24/24 Unknown Rx days #60 tabs tamsulosin 0.4 mg capsule 0.4 mg PO QAM #90 caps 06/06/24 08/24/24 08/21/24 Rx isosorbide mononitrate 30 mg 30 mg PO DAILY #30 tabs 06/24/24 08/24/24 08/21/24 Rx tablet,extended release 24 hr buspirone 30 mg tablet 30 mg PO BID #60 tabs 07/09/24 08/24/24 08/21/24 Rx ranolazine 500 mg tablet,extended 500 mg PO BID #60 tabs 07/15/24 08/24/24 08/21/24 Rx release,12 hr hydrocodone 5 mg-acetaminophen 325 1 tab PO Q12H PRN pain 28 days #56 07/25/24 08/24/24 Unknown Rx mg tablet tabs budesonide 0.5 mg/2 mL suspension 0.5 mg (2 mL) inhalation BID PRN 07/28/24 08/24/24 Unknown Rx for nebulization copd #60 mL clopidogrel 75 mg tablet 75 mg PO DAILY #90 tabs 07/28/24 08/24/24 08/21/24 Rx quetiapine 50 mg tablet (Seroquel) 50 mg PO BEDTIME #90 tabs 07/28/24 08/24/24 08/21/24 Rx pantoprazole 40 mg tablet,delayed 40 mg PO DAILY 30 days #30 tabs 08/13/24 08/24/24 08/21/24 Rx release fluoxetine 20 mg tablet 20 mg PO DAILY #60 tabs 08/18/24 08/24/24 08/21/24 Rx albuterol sulfate 90 mcg/actuation 2 puff inhalation Q4H PRN 08/24/24 08/24/24 Unknown History aerosol inhaler (Ventolin HFA) Shortness Of Breath aspirin 81 mg tablet,delayed 81 mg PO QAM 08/24/24 08/24/24 08/21/24 History release nicotine 21 mg/24 hr daily See Rx Instructions .Route .COMPLEX 08/24/24 08/24/24 08/24/24 History transdermal patch ondansetron HCl 4 mg tablet 4 mg PO Q8H PRN Nausea 08/24/24 08/24/24 Unknown History zonisamide 100 mg capsule 200 mg PO BID 08/24/24 08/24/24 08/21/24 History Allergies Allergy/AdvReac Type Severity Reaction Status Date / Time meperidine [From Demerol] Allergy Severe ALGY-Hives Verified 08/18/24 12:48 Alpha-Gal Allergy upset GI Verified 08/18/24 12:48 (Oynkqaciy-Cxopf-9,3-Gala [Twniniaht-Wygpu-6,3-Galactose (Alph] gabapentin AdvReac Severe ADR-Seizure Verified 08/18/24 12:48 morphine AdvReac Severe ALGY-Hives Verified 08/18/24 12:48 tramadol AdvReac Severe ADR-Seizure Verified 08/18/24 12:48 PFSH Acute PFSH: Medical History Moderate major depression Generalized anxiety disorder Alpha-gal syndrome Heart failure with mildly reduced ejection fraction (HFmrEF) Depression Chronic abdominal pain Hyponatremia Marijuana use, continuous H. pylori duodenitis Elevated glucose Anxiety and depression Screening for lung cancer Alpha galactosidase deficiency C. difficile colitis Atherosclerosis of coronary artery Medical marijuana use Diverticulosis seen in colonoscopy in 2023 GERD (gastroesophageal reflux disease) Chronic pancreatitis Urethral stricture COPD (chronic obstructive pulmonary disease) Essential (primary) hypertension Seizure disorder Mixed hyperlipidemia Osteoarthritis rt knee, cervical and Lumbar spine Heart attack Surgical History History of esophagogastroduodenoscopy (EGD) 2021. Showing esophagitis, gastritis, and duodenitis with + H.pylori biopsies History of back surgery Status post right knee replacement Status post right knee replacement Hx of reconstruction of anterior cruciate ligament tear H/O neck surgery H/O left knee surgery History of appendectomy History of cholecystectomy H/O right knee surgery H/O chest tube placement H/O removal of testicle Stented coronary artery Family History Brother Parkinson disease Cancer Diabetes Stroke Family/Other Cancer Chronic kidney disease (CKD) Suicide Grandmother CAD (coronary artery disease) Cancer Lung disease Grandfather Dementia Mother Lung disease Father Suicide Denies family history of Clotting disorder Anesthesia complication Bleeding disorder Social History Smoking and tobacco/nicotine status: current every day tobacco/nicotine user cigarettes [ Other cigarette details: 1cig, 40PY] Quit status (tobacco/nicotine): has tried quititng Alcohol intake: never Substance/Drug Use: current Substance/Drug use frequency: daily Other substance/drug use details: medical card Lives independently: Yes Household members: significant other service: No Current occupational status: disabled Current occupational exposures/hazards: Yes Do you think of yourself as: Straight/Heterosexual Current gender identity: Male Vitals/I&O/Wt Last Vital Signs Temp 97.9 F 08/24/24 08:22 Pulse 87 08/24/24 16:48 Resp 18 08/24/24 08:22 BP 110/84 08/24/24 16:48 Pulse Ox 97 08/24/24 16:48 O2 Del Method Room Air 08/24/24 08:22 08/24/24 08/24/24 08/24/24 06:59 14:59 22:59 Intake Total 1000 / 1000 Balance 1000 / 1000 Weight last 48 hrs Weight 65.317 kg Physical Exam Narrative: General: Mild distress, AO x 3, dehydrated, sick appearing HEENT: PERRLA, pupils bilaterally equal and reactive, pallors not present Chest: Normal vesicular breath sounds, no added sounds, equal good air entry bilaterally CVS: S1-S2 regular, no murmurs, no tachycardia, no gallops, no rubs Abdomen: Soft, nontender, no organomegaly, bowel sounds present but sluggish Neuro: No focal deficits, no facial deformity, AO x3, power 5/5 in all limbs Data 08/24/24 09:24 08/24/24 18:38 A&P Assessment and plan (1) Diarrhea: (2) GIULIA (acute kidney injury): (3) Acute dehydration: (4) Acute hyponatremia: (5) Metabolic acidosis, increased anion gap: (6) Heart failure with mildly reduced ejection fraction (HFmrEF): (7) Essential (primary) hypertension: (8) Atherosclerotic heart disease of [place] coronary artery with other forms of angina pectoris: (9) GERD (gastroesophageal reflux disease): (10) Depression: (11) Generalized anxiety disorder: (12) Moderate major depression: Plan 53-year-old with past medical history of CAD, preserved ejection fraction heart failure, anxiety disorder, difficile colitis presents with diarrhea and nausea vomiting for 4 days found to have acute hyponatremia, GIULIA with metabolic acidosis. Diarrhea: Does have history of C. difficile in the past. Does have significant leukocytosis. Appreciate CT abdomen pelvis. Check stool studies including C. difficile. For now empirically start on IV Zosyn. If C. difficile positive will add oral vancomycin. IV fluids with normal saline at 75 cc/h. GIULIA: Most likely in setting of dehydration from poor oral intake and diarrhea. Cannot rule out some component of CKD as well. Did have cardiac angiogram on 07/15. IV fluid as above. Strict and proper charting, daily weights. CT on pelvis negative for obstructive nephropathy. Associated with hyponatremia, uremia, metabolic acidosis. Hyponatremia: Most likely in setting of dehydration. IV fluid as above. Monitor BMP every 6 hours. Target improvement of 8 to 10 mEq in 24 hrs. Metabolic acidosis: Management as above. Check lactic acid. CAD: History of multiple PCI: Last echocardiogram from July 2022 shows an EF of 45 to 50%. Will watch for fluid overload. Continue with home dose of aspirin, statin, Plavix. Denies any chest pain. Continue with home dose of ranolazine. Check echocardiogram. Generally anxiety disorder: Continue with home medications of buspirone, fluoxetine, Seroquel. Hypertension: Goal blood pressure less than 140/90 mmHg. Given severe dehydration for now hold off on home dose of Imdur. Monitor blood pressures. Restart as per goal blood pressure. Full code Clear liquid diet Protonix OPD prophylaxis Heparin 5000 every 12 hourly for DVT prophylaxis. Attestations Medical Necessity Statement*: Admit for more than 2 midnights for management of acute diarrhea leading to dehydration, GIULIA, hyponatremia, metabolic acidosis in a patient with history of CAD, congestive heart failure Diagnoses Diarrhea R19.7 GIULIA (acute kidney injury) N17.9 Acute dehydration E86.0 Acute hyponatremia E87.1 Metabolic acidosis, increased anion gap E87.29 Heart failure with mildly reduced ejection fraction (HFmrEF) I50.22 Essential (primary) hypertension I10 Atherosclerotic heart disease of [place] coronary artery with other forms of angina pectoris I25.118 GERD (gastroesophageal reflux disease) K21.9 Depression F32.A Generalized anxiety disorder F41.1 Moderate major depression F32.1
[2024-08-24 17:45] LABS: C.Diff PCR (Lab) NEGATIVE (Negative)
[2024-08-24] MEDS: BuSPIRONE 10 mg Tablet 30 MG PO (18:31)
[2024-08-24] MEDS: zonisamide 100 MG Capsule 200 MG PO (18:31)
[2024-08-24] MEDS: pantoprazole 40 mg SDV IVP (18:32)
[2024-08-24] MEDS: heparin 5,000 unit/mL INJ 1 mL 5000 UNIT SUBCUT (18:32)
[2024-08-24] MEDS: sodium chloride 0.9% 1,000 ML 75 ML IV (18:33)
[2024-08-24 18:59] LABS: Estmated Average Glucose 105; Hemoglobin A1C 5.3 % (4.0-6.0)
[2024-08-24 19:05] LABS: Lactic Sepsis W/Reflex 1.7 mmol/L (0.5-2.2)
[2024-08-24 19:16] LABS: Anion Gap 18.2 (5-19); Blood Urea Nitrogen 45 mg/dL (6-20); Carbon Dioxide 19 mmol/L (22-29); Chloride 93 mmol/L (98-107); Creatinine Clr Calc Pharmacy 71.5631; Glomerular Filtration Rate 70.3 mL/min (90-130); Glucose 113 mg/dL (65-115); Osmolality Calculated 276 mOsm/kg (285-295); Potassium 3.2 mmol/L (3.5-5.1); Sodium 127 mmol/L (136-145)
[2024-08-24] MEDS: budesonide 0.5 mg/2 mL Neb INHALATION (20:02)
[2024-08-24] MEDS: ipratropium-albuterol 3 mL Neb INHALATION (20:02)
[2024-08-24] MEDS: HYDROcodone-acetaminophen 5-325 mg Tablet 1 TAB PO (20:27)
[2024-08-24] MEDS: quetiapine 25 mg Tablet 50 MG PO (20:28)
[2024-08-24] MEDS: potassium chloride ER 20 mEq Tablet 40 MEQ PO (22:42)
[2024-08-25] VITALS (10 sets, daily range): BP systolic 109–178; BP diastolic 68–92; PULSE 59–99; RESP 16–18; TEMP 36.4–36.8; O2SAT 78–100
[2024-08-25 00:11] LABS: Alanine Aminotransferase 34 U/L (0-41); Albumin Level 3.8 g/dL (3.5-5.2); Alkaline Phosphatase 83 U/L (40-130); Aspartate Amino Transferase 113 U/L (0-40); Blood Urea Nitrogen 38 mg/dL (6-20); Calcium 8.3 mg/dL (8.5-10.5); Carbon Dioxide 14 mmol/L (22-29); Chloride 94 mmol/L (98-107); Creatinine Clr Calc Pharmacy 78.7194; Globulin 2.6 g/dL (1.3-4.6); Glomerular Filtration Rate 78.5 mL/min (90-130); Glucose 107 mg/dL (65-115); Osmolality Calculated 272 mOsm/kg (285-295); Sodium 126 mmol/L (136-145); Total Bilirubin 1.3 mg/dL (0.15-1.2); Total Protein 6.4 g/dL (6.6-8.7)
[2024-08-25 00:27] LABS: Anion Gap 21.3 (5-19); Potassium 3.3 mmol/L (3.5-5.1)
[2024-08-25] MEDS: potassium chloride ER 20 mEq Tablet 40 MEQ PO (01:50)
[2024-08-25] MEDS: ondansetron 2 mg/ML SDV 2 mL 4 MG IVP ×2 (03:10→17:02)
[2024-08-25 03:55] LABS: Basophils % 0.4 %; Eosinophils # 0.1 10^3/uL (0.0-0.8); Eosinophils % 1.3 %; Hematocrit 42.2 % (37-53); Mean Corpuscular HGB Conc 34.6 g/dL (30-55); Mean Corpuscular Volume 95.5 fl (82-101); Mean Platelet Volume 8.7 fL (7.4-10.4); Monocytes # 1.4 10^3/uL (0.2-0.9); Monocytes % 12.5 %; Neutrophils # 6.18 10^3/uL (1.8-7.7); Neutrophils % 56.9 %; Nucleated Red Blood Cells % 0 %; Platelet Count 318 10^3/cmm (157-399); Red Blood Count 4.42 10^6/uL (3.85-5.65); Red Cell Distribution Width 12.3 % (12.1-15.1); White Blood Count 10.84 10^3/uL (3.29-11.43)
[2024-08-25 04:24] LABS: Cholesterol 182 mg/dL (0-200); HDL Cholesterol 35 mg/dL (60-100); LDL Cholesterol Calculated 104 mg/dL (50-129); LDL HDL Ratio 2.97 RATIO (0.00-3.22); Triglycerides 216 mg/dL (0-150)
[2024-08-25 04:25] LABS: Alanine Aminotransferase 35 U/L (0-41); Albumin Level 4.3 g/dL (3.5-5.2); Alkaline Phosphatase 84 U/L (40-130); Anion Gap 20.7 (5-19); Aspartate Amino Transferase 114 U/L (0-40); Blood Urea Nitrogen 33 mg/dL (6-20); Calcium 8.9 mg/dL (8.5-10.5); Carbon Dioxide 17 mmol/L (22-29); Chloride 96 mmol/L (98-107); Creatinine Clr Calc Pharmacy 78.7194; Globulin 2.6 g/dL (1.3-4.6); Glomerular Filtration Rate 78.5 mL/min (90-130); Glucose 115 mg/dL (65-115); Osmolality Calculated 278 mOsm/kg (285-295); Phosphorus 2.2 mg/dL (2.5-4.5); Potassium 3.7 mmol/L (3.5-5.1); Sodium 130 mmol/L (136-145); Total Bilirubin 1.5 mg/dL (0.15-1.2); Total Protein 6.9 g/dL (6.6-8.7)
[2024-08-25] MEDS: tamsulosin 0.4 mg Capsule PO (06:13)
[2024-08-25] MEDS: piperacillin-tazobactam 3.375 GM in sodium chloride 0.9% (plus) 50 ML IV ×3 (06:13→22:11)
[2024-08-25] MEDS: aspirin 81 mg EC Tablet PO (06:13)
[2024-08-25] MEDS: heparin 5,000 unit/mL INJ 1 mL 5000 UNIT SUBCUT ×2 (06:13→17:00)
[2024-08-25] MEDS: atorvastatin 40 mg Tablet 80 MG PO (08:45)
[2024-08-25] MEDS: metoclopramide 5 mg/mL SDV 2 mL IVP (08:45)
[2024-08-25] MEDS: BuSPIRONE 10 mg Tablet 30 MG PO ×2 (08:46→17:02)
[2024-08-25] MEDS: fluoxetine 20 mg Capsule PO (08:46)
[2024-08-25] MEDS: clopidogrel 75 mg Tablet PO (08:46)
[2024-08-25] MEDS: zonisamide 100 MG Capsule 200 MG PO ×2 (08:46→17:02)
--- NOTE | 2024-08-25 15:11 | P.PN_ITS ---
Subjective 2 Subjective: Seen this morning. Complains of abdominal pain. Vitals/I&O/Wt Last Vital Signs Temp 98.0 F 08/25/24 11:20 Pulse 99 08/25/24 14:36 Resp 16 08/25/24 14:36 BP 153/92 08/25/24 11:20 Pulse Ox 78 L 08/25/24 14:36 O2 Del Method Room Air 08/25/24 14:36 08/25/24 08/25/24 08/25/24 06:59 14:59 22:59 Intake Total 530 / 2580 50 / 50 Balance 530 / 2580 50 / 50 Weight last 48 hrs Weight 63.775 kg Weight 65.317 kg Weight 65.317 kg Physical Exam 2 Narrative: General: AO x 3, HEENT: PERRLA, pupils bilaterally equal and reactive, pallors not present Chest: Normal vesicular breath sounds, no added sounds, equal good air entry bilaterally CVS: S1-S2 regular, no murmurs, no tachycardia, no gallops, no rubs Abdomen: Soft, nontender, no organomegaly, bowel sounds present but sluggish Neuro: No focal deficits, no facial deformity, AO x3, Data 08/25/24 03:05 08/25/24 03:05 Micro: Microbiology 08/24/24 18:38 Blood Culture - Preliminary Blood SPECIMEN COLLECTED 08/24/24 18:38 Blood Culture - Preliminary Blood SPECIMEN COLLECTED 08/24/24 16:53 Stool Lactoferrin - Final Stool Occult Blood (FIT) - Final A&P Assessment and plan (1) Diarrhea: (2) GIULIA (acute kidney injury): (3) Acute dehydration: (4) Acute hyponatremia: (5) Metabolic acidosis, increased anion gap: (6) Heart failure with mildly reduced ejection fraction (HFmrEF): (7) Essential (primary) hypertension: (8) Atherosclerotic heart disease of [place] coronary artery with other forms of angina pectoris: (9) GERD (gastroesophageal reflux disease): (10) Depression: (11) Generalized anxiety disorder: (12) Moderate major depression: Plan 53-year-old with past medical history of CAD, preserved ejection fraction heart failure, anxiety disorder, difficile colitis presents with diarrhea and nausea vomiting for 4 days found to have acute hyponatremia, GIULIA with metabolic acidosis. Diarrhea: Does have history of C. difficile in the past. Does have significant leukocytosis. Appreciate CT abdomen pelvis. Check stool studies including C. difficile. For now empirically start on IV Zosyn. If C. difficile positive will add oral vancomycin. IV fluids with normal saline at 75 cc/h. GIULIA: Most likely in setting of dehydration from poor oral intake and diarrhea. Cannot rule out some component of CKD as well. Did have cardiac angiogram on 07/15. IV fluid as above. Strict and proper charting, daily weights. CT on pelvis negative for obstructive nephropathy. Associated with hyponatremia, uremia, metabolic acidosis. Hyponatremia: Most likely in setting of dehydration. IV fluid as above. Monitor BMP every 6 hours. Target improvement of 8 to 10 mEq in 24 hrs. Metabolic acidosis: Management as above. Check lactic acid. CAD: History of multiple PCI: Last echocardiogram from July 2022 shows an EF of 45 to 50%. Will watch for fluid overload. Continue with home dose of aspirin, statin, Plavix. Denies any chest pain. Continue with home dose of ranolazine. Check echocardiogram. Generally anxiety disorder: Continue with home medications of buspirone, fluoxetine, Seroquel. Hypertension: Goal blood pressure less than 140/90 mmHg. Given severe dehydration for now hold off on home dose of Imdur. Monitor blood pressures. Restart as per goal blood pressure. Full code Clear liquid diet Protonix OPD prophylaxis Heparin 5000 every 12 hourly for DVT prophylaxis. 08/25/2024 -Sodium 130, CO2 17, anion gap 20.7 ? Bilirubin 1.5. AST 114. Patient still complaining of abdominal pain. Abdomen pelvis CT performed yesterday showed jejunitis. ? Continue patient on Zosyn ? Consult general surgery ? Continue patient on normal saline 75 cc/h. Attestations 2 Medical Necessity Statement*: Admit for more than 2 midnights for management of acute diarrhea leading to dehydration, GIULIA, hyponatremia, metabolic acidosis in a patient with history of CAD, congestive heart failure Diagnoses Diarrhea R19.7 GIULIA (acute kidney injury) N17.9 Acute dehydration E86.0 Acute hyponatremia E87.1 Metabolic acidosis, increased anion gap E87.29 Heart failure with mildly reduced ejection fraction (HFmrEF) I50.22 Essential (primary) hypertension I10 Atherosclerotic heart disease of [place] coronary artery with other forms of angina pectoris I25.118 GERD (gastroesophageal reflux disease) K21.9 Depression F32.A Generalized anxiety disorder F41.1 Moderate major depression F32.1
--- NOTE | 2024-08-25 16:50 | USCV_ITS ---
Josue Cheng Age: 53 Gender: M : 1970 Exam Date: 08/25/2024 09:25 Ordering Phys: Samson Ling MD Technologist: Exam Location: [facility] [place]: cp BP: / HR: 72 Rhythm: Sinus Technical Quality: Adequate MEASUREMENTS (Male / Female) Normal Values 2D ECHO LV Diastolic Diameter PLAX 4.1 cm 4.2 - 5.9 / 3.9 - 5.3 cm IVS Diastolic Thickness 1.2 cm 0.6 - 1.0 / 0.6 - 0.9 cm IVS Systolic Thickness 1.8 cm LVPW Diastolic Thickness 1.1 cm 0.6 - 1.0 / 0.6 - 0.9 cm LVPW Systolic Thickness 1.1 cm LVOT Diameter 2.0 cm LV Ejection Fraction 2D Teich 64.9 % LV Ejection Fraction MOD 4C 68.7 % LV Ejection Fraction MOD 2C 56.5 % LV Ejection Fraction 2C AL 56.6 % LA Diameter 2.5 cm RA Systolic Volume 4C AL 28.7 ml RA Systolic Volume 4C MOD 28.6 ml Aorta at Sinotubular Diameter 2.9 cm M-MODE LA Ao Ratio MM 0.9 AV Cusp Separation MM 1.8 cm DOPPLER AV Peak Velocity 144.0 cm/s LVOT Peak Velocity 101.0 cm/s AV Area Cont Eq vti 2.4 cm squared AV Area Cont Eq pk 2.2 cm squared MV Peak Velocity 85.0 cm/s MV Area PHT 2.6 cm squared Mitral E to A Ratio 0.9 PV Peak Velocity 143.0 cm/s FINDINGS Left Ventricle Normal left ventricular size, systolic function and wall thickness, with no regional wall motion abnormalities. Left ventricular ejection fraction is estimated at 60 %. Grade I/IV diastolic dysfunction (abnormal relaxation filling pattern), normal to mildly elevated filling pressures. Right Ventricle The right ventricle is normal in size and function. Right Atrium The right atrium is normal in size. Left Atrium The left atrium is normal in size. Mitral Valve Structurally normal mitral valve without significant stenosis or prolapse. There is no mitral regurgitation. Aortic Valve Structurally normal aortic valve without significant sclerosis or stenosis. There is no aortic regurgitation. Tricuspid Valve Structurally normal tricuspid valve without significant stenosis or regurgitation. Pulmonary artery systolic pressure is normal. Pulmonic Valve Structurally normal pulmonic valve without significant stenosis. There is no pulmonic regurgitation. Pericardium Normal pericardium without effusion. Aorta Normal ascending aorta dimension. IVC The inferior vena cava appears normal. CONCLUSIONS Normal left ventricular size, systolic function and wall thickness, with no regional wall motion abnormalities. Left ventricular ejection fraction is estimated at 60 %. Grade I/IV diastolic dysfunction (abnormal relaxation filling pattern), normal to mildly elevated filling pressures. No significant valve abnormalities. There is no pericardial effusion. Right atrial pressure is around 5 mm of mercury. Roly Sims MD (Electronically Signed) Final Date: 26 August 2024 01:05 S
[2024-08-25] MEDS: pantoprazole 40 mg SDV IVP (17:00)
[2024-08-25] MEDS: HYDROcodone-acetaminophen 5-325 mg Tablet 1 TAB PO (17:01)
--- NOTE | 2024-08-25 17:01 | PM.CONSULT ---
Providers/Reason For Consult Consulting Physician/Specialty*: General Surgery Reason for Consult*: Jejunitis possible IBD Attending Physician: Linda ePrez MD Primary Care Provider: Jarrell Espino MD History of Present Illness History of Present Illness Henriettamary lou Cheng is a 53 year old male who was admitted to the hospital with jejunitis diarrhea nausea and vomit. According to the patient he has had multiple similar episodes in the past that usually go away and after they go away he feels much better. He was recently worked out in the [facility] where he underwent endoscopy evaluation and he supposed to go back there to get the results on September 12. He has a history of alpha gal, has not been diagnosed of inflammatory bowel disease in the past. According to the patient about 4 days ago he started having several years of diarrhea nausea and vomit and therefore he presented to the hospital. With initial resuscitation he has been feeling better but still having some cramping abdominal pain. I was consulted for evaluation from the surgical/GI standpoint. Review of Systems General: Reports: 10 or more systems reviewed and unremarkable except in HPI and below Medications/Allergies Home Medications Medication Instructions Recorded Confirmed Last Taken Type albuterol sulfate 2.5 mg/3 mL 2.5 mg inhalation BID PRN 03/14/23 08/24/24 07/15/24 05:15 History (0.083 %) solution for nebulization Shortness Of Breath Bone Growth Stimulator #1 ea 01/04/24 08/24/24 07/15/24 05:15 Rx fluticasone 100 mcg-salmeterol 50 1 inh inhalation BID #60 ea 02/05/24 08/24/24 08/21/24 Rx mcg/dose blistr powdr for inhalation (Advair Diskus) nitroglycerin 0.4 mg sublingual 0.4 mg sublingual Q5M PRN chest 02/06/24 08/24/24 Unknown Rx tablet pain 30 days #30 tabs potassium chloride 20 mEq 20 meq PO BID 10 days #20 tabs 05/01/24 08/24/24 08/21/24 Rx tablet,extended release(part/cryst) (Klor-Con M) atorvastatin 80 mg tablet 80 mg PO DAILY 05/08/24 08/24/24 08/21/24 History tamsulosin 0.4 mg capsule 0.4 mg PO QAM #90 caps 06/06/24 08/24/24 08/21/24 Rx isosorbide mononitrate 30 mg 30 mg PO DAILY #30 tabs 06/24/24 08/24/24 08/21/24 Rx tablet,extended release 24 hr buspirone 30 mg tablet 30 mg PO BID #60 tabs 07/09/24 08/24/24 08/21/24 Rx ranolazine 500 mg tablet,extended 500 mg PO BID #60 tabs 07/15/24 08/24/24 08/21/24 Rx release,12 hr hydrocodone 5 mg-acetaminophen 325 1 tab PO Q12H PRN pain 28 days #56 07/25/24 08/24/24 Unknown Rx mg tablet tabs budesonide 0.5 mg/2 mL suspension 0.5 mg (2 mL) inhalation BID PRN 07/28/24 08/24/24 Unknown Rx for nebulization copd #60 mL clopidogrel 75 mg tablet 75 mg PO DAILY #90 tabs 07/28/24 08/24/24 08/21/24 Rx quetiapine 50 mg tablet (Seroquel) 50 mg PO BEDTIME #90 tabs 07/28/24 08/24/24 08/21/24 Rx pantoprazole 40 mg tablet,delayed 40 mg PO DAILY 30 days #30 tabs 08/13/24 08/24/24 08/21/24 Rx release fluoxetine 20 mg tablet 20 mg PO DAILY #60 tabs 08/18/24 08/24/24 08/21/24 Rx albuterol sulfate 90 mcg/actuation 2 puff inhalation Q4H PRN 08/24/24 08/24/24 Unknown History aerosol inhaler (Ventolin HFA) Shortness Of Breath aspirin 81 mg tablet,delayed 81 mg PO QAM 08/24/24 08/24/24 08/21/24 History release nicotine 21 mg/24 hr daily See Rx Instructions .Route .COMPLEX 08/24/24 08/24/24 08/24/24 History transdermal patch ondansetron HCl 4 mg tablet 4 mg PO Q8H PRN Nausea 08/24/24 08/24/24 Unknown History zonisamide 100 mg capsule 200 mg PO BID 08/24/24 08/24/24 08/21/24 History clonazepam 2 mg tablet 2 mg PO BID PRN Anxiety attacks 30 08/25/24 Unknown Rx days #60 tabs Allergies Allergy/AdvReac Type Severity Reaction Status Date / Time meperidine [From Demerol] Allergy Severe ALGY-Hives Verified 08/18/24 12:48 Alpha-Gal Allergy upset GI Verified 08/18/24 12:48 (Kgtzbqpho-Azitu-1,3-Gala [Zlkeojzmc-Wuqfc-9,3-Galactose (Alph] gabapentin AdvReac Severe ADR-Seizure Verified 08/18/24 12:48 morphine AdvReac Severe ALGY-Hives Verified 08/18/24 12:48 tramadol AdvReac Severe ADR-Seizure Verified 08/18/24 12:48 Current Medications Generic Name Dose Route Start Last Admin Trade Name Freq PRN Reason Stop Dose Admin Hydrocodone Bitart/Acetaminophen 1 tab 08/24/24 17:27 08/24/24 20:27 Hydrocodone-Acetaminophen 5-325 Mg Tablet PO 1 tab Q12H PRN Administration pain Aspirin 81 mg 08/25/24 06:00 08/25/24 06:13 Aspirin 81 Mg Ec Tablet PO 81 mg QAM LUKE Administration Atorvastatin Calcium 80 mg 08/25/24 09:00 08/25/24 08:45 Atorvastatin 40 Mg Tablet PO 80 mg DAILY LUKE Administration Buspirone HCl 30 mg 08/24/24 18:00 08/25/24 08:46 Buspirone 10 Mg Tablet PO 30 mg BID LUKE Administration Clopidogrel Bisulfate 75 mg 08/25/24 09:00 08/25/24 08:46 Clopidogrel 75 Mg Tablet PO 75 mg DAILY LUKE Administration Fluoxetine HCl 20 mg 08/25/24 09:00 08/25/24 08:46 Fluoxetine 20 Mg Capsule PO 20 mg DAILY LUKE Administration Heparin Sodium (Porcine) 5,000 unit 08/24/24 17:27 08/25/24 06:13 Heparin 5,000 Unit/Ml Inj 1 Ml SUBCUT 5,000 unit Q12H LUKE Administration Piperacillin Sod/Tazobactam 50 mls @ 12.5 mls/hr 08/24/24 22:30 08/25/24 14:12 Sod 3.375 gm/ Sodium Chloride IV 12.5 mls/hr Q8H LUKE Administration Sodium Chloride 1,000 mls @ 75 mls/hr 08/24/24 17:27 08/24/24 18:33 Sodium Chloride 0.9% IV 75 mls/hr .[id number] LUKE Administration Ondansetron HCl 4 mg 08/24/24 17:27 08/25/24 03:10 Ondansetron 2 Mg/Ml Sdv 2 Ml IVP 4 mg Q8H PRN Administration vomiting, or N/V if npo Pantoprazole Sodium 40 mg 08/24/24 17:27 08/24/24 18:32 Pantoprazole 40 Mg Sdv IVP 40 mg Q24H LUKE Administration Quetiapine Fumarate 50 mg 08/24/24 21:00 08/24/24 20:28 Quetiapine 25 Mg Tablet PO 50 mg BEDTIME LUKE Administration Tamsulosin HCl 0.4 mg 08/25/24 06:00 08/25/24 06:13 Tamsulosin 0.4 Mg Capsule PO 0.4 mg QAM LUKE Administration Zonisamide 200 mg 08/24/24 18:00 08/25/24 08:46 Zonisamide 100 Mg Capsule PO 200 mg BID LUKE Administration PFSH Acute PFSH: Medical History Moderate major depression Generalized anxiety disorder Alpha-gal syndrome Heart failure with mildly reduced ejection fraction (HFmrEF) Depression Chronic abdominal pain Hyponatremia Marijuana use, continuous H. pylori duodenitis Elevated glucose Anxiety and depression Screening for lung cancer Alpha galactosidase deficiency C. difficile colitis Atherosclerosis of coronary artery Medical marijuana use Diverticulosis seen in colonoscopy in 2023 GERD (gastroesophageal reflux disease) Chronic pancreatitis Urethral stricture COPD (chronic obstructive pulmonary disease) Essential (primary) hypertension Seizure disorder Mixed hyperlipidemia Osteoarthritis rt knee, cervical and Lumbar spine Heart attack Surgical History History of esophagogastroduodenoscopy (EGD) 2021. Showing esophagitis, gastritis, and duodenitis with + H.pylori biopsies History of back surgery Status post right knee replacement Status post right knee replacement Hx of reconstruction of anterior cruciate ligament tear H/O neck surgery H/O left knee surgery History of appendectomy History of cholecystectomy H/O right knee surgery H/O chest tube placement H/O removal of testicle Stented coronary artery Family History Brother Parkinson disease Cancer Diabetes Stroke Family/Other Cancer Chronic kidney disease (CKD) Suicide Grandmother CAD (coronary artery disease) Cancer Lung disease Grandfather Dementia Mother Lung disease Father Suicide Denies family history of Clotting disorder Anesthesia complication Bleeding disorder Social History Smoking and tobacco/nicotine status: current every day tobacco/nicotine user cigarettes [ Other cigarette details: 1cig, 40PY] Quit status (tobacco/nicotine): has tried quititng Alcohol intake: never Substance/Drug Use: current Substance/Drug use frequency: daily Other substance/drug use details: medical card Lives independently: Yes Household members: significant other service: No Current occupational status: disabled Current occupational exposures/hazards: Yes Do you think of yourself as: Straight/Heterosexual Current gender identity: Male Vitals/I&O/Wt Last Vital Signs Temp 97.6 F 08/25/24 15:58 Pulse 70 08/25/24 15:58 Resp 18 08/25/24 15:58 BP 178/80 08/25/24 15:58 Pulse Ox 97 08/25/24 15:58 O2 Del Method Room Air 08/25/24 15:58 08/25/24 08/25/24 08/25/24 06:59 14:59 22:59 Intake Total 530 / 2580 50 / 50 Balance 530 / 2580 50 / 50 Weight last 48 hrs Weight 140 lb 9.6 oz Weight 144 lb Weight 144 lb Physical Exam GI: OTHER: Abdominal exam is completely benign abdomen is soft very minimal tenderness to palpation. There is hyperactive bowel sounds consistent with back gnosis of jejunitis. Patient has a very small easily reducible right inguinal hernia Data 08/25/24 03:05 08/25/24 03:05 Micro: Microbiology 08/24/24 18:38 Blood Culture - Preliminary Blood SPECIMEN COLLECTED 08/24/24 18:38 Blood Culture - Preliminary Blood SPECIMEN COLLECTED 08/24/24 16:53 Stool Lactoferrin - Final Stool Occult Blood (FIT) - Final A&P Assessment and plan (1) Chronic diarrhea: (2) Chronic abdominal pain: Plan After complete history, physical examination and review of all available clinical data the following is my assessment. Patient symptoms raise a concern for the possibility of inflammatory bowel disease. Symptoms have been chronic in nature and the presentation is episodic consistent with possible flareups. I agree with current treatment as guided by medical team with IV antibiotic therapy fluid resuscitation and GI rest. If there is no improvement on patient's symptoms over the next 24 to 48 hours or if there is worsening of white count or symptoms patient will require transfer to higher level of care for evaluation by GI specialist for workup for possible inflammatory bowel disease. At the moment there is no indication for upper and lower endoscopy as patient had a recent endoscopic evaluation at outside facility, he can obtain records as outpatient once this acute episode subsides. I will recommend that he continues to strictly follow alpha gal precautions with diet. If his symptoms are improved by tomorrow he can be advanced to a GI soft diet and he can remain on a GI soft diet when he transition to the outpatient setting. Of note patient can follow-up with us as outpatient if he wants to get a repair of his right inguinal hernia in the future. Coding Level of Care Code Acute Code for Chg Fwd Diagnoses Chronic diarrhea K52.9 Chronic abdominal pain R10.9; G89.29
[2024-08-25] MEDS: morphine 4 mg/mL SDV 1 mL 2 MG IVP (20:19)
[2024-08-25] MEDS: quetiapine 25 mg Tablet 50 MG PO (20:19)
[2024-08-25] MEDS: sodium chloride 0.9% 1,000 ML 75 ML IV (20:19)
[2024-08-26] VITALS (8 sets, daily range): BP systolic 113–169; BP diastolic 72–99; PULSE 49–71; RESP 16–18; TEMP 36.4–36.9; O2SAT 97–100
[2024-08-26] MEDS: aspirin 81 mg EC Tablet PO (05:00)
[2024-08-26] MEDS: HYDROcodone-acetaminophen 5-325 mg Tablet 1 TAB PO ×2 (05:00→22:11)
[2024-08-26] MEDS: tamsulosin 0.4 mg Capsule PO (05:01)
[2024-08-26] MEDS: heparin 5,000 unit/mL INJ 1 mL 5000 UNIT SUBCUT ×2 (05:01→17:30)
[2024-08-26] MEDS: CLONazepam 1 mg Tablet 2 MG PO ×2 (05:02→20:25)
[2024-08-26 05:16] LABS: Basophils % 0.4 %; Eosinophils # 0.3 10^3/uL (0.0-0.8); Eosinophils % 3.2 %; Hematocrit 36.2 % (37-53); Lymphocytes # 2.7 10^3/uL (0.8-4.8); Lymphocytes % 35.4 %; Mean Corpuscular HGB Conc 35.4 g/dL (30-55); Mean Corpuscular Hemoglobin 33.3 pg (27-33); Mean Corpuscular Volume 94.3 fl (82-101); Mean Platelet Volume 8.7 fL (7.4-10.4); Monocytes # 0.8 10^3/uL (0.2-0.9); Monocytes % 9.8 %; Neutrophils # 3.87 10^3/uL (1.8-7.7); Neutrophils % 50.2 %; Nucleated Red Blood Cells % 0 %; Platelet Count 239 10^3/cmm (157-399); Red Blood Count 3.84 10^6/uL (3.85-5.65); Red Cell Distribution Width 12.5 % (12.1-15.1); White Blood Count 7.73 10^3/uL (3.29-11.43)
[2024-08-26 05:33] LABS: Magnesium 2.1 mg/dL (1.7-2.3); Phosphorus 1.9 mg/dL (2.5-4.5)
[2024-08-26] MEDS: piperacillin-tazobactam 3.375 GM in sodium chloride 0.9% (plus) 50 ML IV ×3 (06:19→22:08)
[2024-08-26] MEDS: zonisamide 100 MG Capsule 200 MG PO ×2 (09:26→17:29)
[2024-08-26] MEDS: BuSPIRONE 10 mg Tablet 30 MG PO ×2 (09:26→17:29)
[2024-08-26] MEDS: atorvastatin 40 mg Tablet 80 MG PO (09:26)
[2024-08-26] MEDS: fluoxetine 20 mg Capsule PO (09:26)
[2024-08-26] MEDS: clopidogrel 75 mg Tablet PO (09:26)
[2024-08-26] MEDS: ondansetron 2 mg/ML SDV 2 mL 4 MG IVP (09:27)
[2024-08-26] MEDS: sodium chloride 0.9% 1,000 ML 75 ML IV (11:35)
--- NOTE | 2024-08-26 13:37 | PM.PN ---
Subjective Subjective: Patient continues to have diarrhea. He states everything just runs out of him the plan that he eats. He is on clear liquids at this time. Still reporting nausea but has not vomited again. Denies any chest pain. Says all over his abdomen there is soreness present. Says he has these episodes from before as well. He recently had a colonoscopy at [facility]. He states it was last year. Probably it was June? We have requested records. Discussed with patient regarding possibility of IBD. Also discussed with him trial of steroids today. C. difficile is negative. Stool cultures ova parasite screen is pending at this time. I have discussed in detail with general surgery. Patient would not benefit from a repeat colonoscopy at this time. They are recommending GI consultation and possible transfer. Discussed with patient that we will probably end up transferring if patient continues to not improved by tomorrow. Vitals/I&O/Wt Last Vital Signs Temp 97.7 F 08/26/24 12:01 Pulse 66 08/26/24 12:01 Resp 18 08/26/24 12:01 BP 140/80 08/26/24 12:01 Pulse Ox 97 08/26/24 12:01 O2 Del Method Room Air 08/26/24 12:01 08/25/24 08/26/24 08/26/24 22:59 06:59 14:59 Intake Total 50 / 1100 50 / 1150 1050 / 1050 Output Total 350 / 350 Balance 50 / 1100 -300 / 800 1050 / 1050 Weight last 48 hrs Weight 63.866 kg Weight 63.775 kg Weight 65.317 kg Physical Exam Narrative: General: AO x 3, HEENT: PERRLA, pupils bilaterally equal and reactive, pallors not present Chest: Normal vesicular breath sounds, no added sounds, equal good air entry bilaterally CVS: S1-S2 regular, no murmurs, no tachycardia, no gallops, no rubs Abdomen: Soft, nontender, no organomegaly, bowel sounds present but sluggish Neuro: No focal deficits, no facial deformity, AO x3, Data 08/26/24 04:40 08/25/24 03:05 Micro: Microbiology 08/24/24 18:38 Blood Culture - Preliminary Blood NEGATIVE TO DATE 08/24/24 18:38 Blood Culture - Preliminary Blood NEGATIVE TO DATE A&P Assessment and plan (1) Diarrhea: (2) GIULIA (acute kidney injury): (3) Acute dehydration: (4) Acute hyponatremia: (5) Metabolic acidosis, increased anion gap: (6) Heart failure with mildly reduced ejection fraction (HFmrEF): (7) Essential (primary) hypertension: (8) Atherosclerotic heart disease of [place] coronary artery with other forms of angina pectoris: (9) GERD (gastroesophageal reflux disease): (10) Depression: (11) Generalized anxiety disorder: (12) Moderate major depression: Plan 53-year-old with past medical history of CAD, preserved ejection fraction heart failure, anxiety disorder, difficile colitis presents with diarrhea and nausea vomiting for 4 days found to have acute hyponatremia, GIULIA with metabolic acidosis. Diarrhea: Does have history of C. difficile in the past. Does have significant leukocytosis. Appreciate CT abdomen pelvis. Check stool studies including C. difficile. For now empirically start on IV Zosyn. If C. difficile positive will add oral vancomycin. IV fluids with normal saline at 75 cc/h. GIULIA: Most likely in setting of dehydration from poor oral intake and diarrhea. Cannot rule out some component of CKD as well. Did have cardiac angiogram on 07/15. IV fluid as above. Strict and proper charting, daily weights. CT on pelvis negative for obstructive nephropathy. Associated with hyponatremia, uremia, metabolic acidosis. Hyponatremia: Most likely in setting of dehydration. IV fluid as above. Monitor BMP every 6 hours. Target improvement of 8 to 10 mEq in 24 hrs. Metabolic acidosis: Management as above. Check lactic acid. CAD: History of multiple PCI: Last echocardiogram from July 2022 shows an EF of 45 to 50%. Will watch for fluid overload. Continue with home dose of aspirin, statin, Plavix. Denies any chest pain. Continue with home dose of ranolazine. Check echocardiogram. Generally anxiety disorder: Continue with home medications of buspirone, fluoxetine, Seroquel. Hypertension: Goal blood pressure less than 140/90 mmHg. Given severe dehydration for now hold off on home dose of Imdur. Monitor blood pressures. Restart as per goal blood pressure. Full code Clear liquid diet Protonix OPD prophylaxis Heparin 5000 every 12 hourly for DVT prophylaxis. 08/25/2024 -Sodium 130, CO2 17, anion gap 20.7 ? Bilirubin 1.5. AST 114. Patient still complaining of abdominal pain. Abdomen pelvis CT performed yesterday showed jejunitis. ? Continue patient on Zosyn ? Consult general surgery ? Continue patient on normal saline 75 cc/h. 08/26/2024 Liver enzymes are improving. Bilirubin has improved as well. ? Continue Zosyn at this time ? Continue normal saline 75 cc/h. Continue clear liquid diet. Will start Solu-Medrol 40 IV every 8 hours for possible IBD flareup?. Patient will need GI consultation going forward if he does not continue to show improvement. We have requested records from [facility]. Discussed all the above with the patient who is agreeable to transfer if required at this point. We will review records before transferring the patient. Awaiting records at this time. In the meantime we are waiting for stool culture ova parasite screen. Appreciate general surgery recommendations. Attestations Medical Necessity Statement*: Admit for more than 2 midnights for management of acute diarrhea leading to dehydration, GIULIA, hyponatremia, metabolic acidosis in a patient with history of CAD, congestive heart failure Diagnoses Diarrhea R19.7 GIULIA (acute kidney injury) N17.9 Acute dehydration E86.0 Acute hyponatremia E87.1 Metabolic acidosis, increased anion gap E87.29 Heart failure with mildly reduced ejection fraction (HFmrEF) I50.22 Essential (primary) hypertension I10 Atherosclerotic heart disease of [place] coronary artery with other forms of angina pectoris I25.118 GERD (gastroesophageal reflux disease) K21.9 Depression F32.A Generalized anxiety disorder F41.1 Moderate major depression F32.1
[2024-08-26] MEDS: methylPREDNISolone sod succ 40 mg/mL INJ IVP ×2 (14:30→20:25)
[2024-08-26] MEDS: phosphorus 250 mg Tablet PO ×2 (14:31→17:29)
[2024-08-26] MEDS: pantoprazole 40 mg SDV IVP (17:29)
[2024-08-26] MEDS: quetiapine 25 mg Tablet 50 MG PO (20:25)
[2024-08-26] MEDS: nicotine 14 mg Patch 1 PATCH TRANSDERMA (22:09)
[2024-08-27] MEDS: sodium chloride 0.9% 1,000 ML 75 ML IV (00:11)
[2024-08-27 04:00] VITALS: BP 104/67; PULSE 69; RESP 18; TEMP 36.6; O2SAT 98
[2024-08-27] MEDS: tamsulosin 0.4 mg Capsule PO (05:38)
[2024-08-27] MEDS: piperacillin-tazobactam 3.375 GM in sodium chloride 0.9% (plus) 50 ML IV ×2 (05:38→15:08)
[2024-08-27] MEDS: methylPREDNISolone sod succ 40 mg/mL INJ IVP (05:38)
[2024-08-27] MEDS: HYDROcodone-acetaminophen 5-325 mg Tablet 1 TAB PO (05:38)
[2024-08-27] MEDS: CLONazepam 1 mg Tablet 2 MG PO (05:38)
[2024-08-27] MEDS: heparin 5,000 unit/mL INJ 1 mL 5000 UNIT SUBCUT (05:39)
[2024-08-27] MEDS: aspirin 81 mg EC Tablet PO (05:39)
--- NOTE | 2024-08-27 07:43 | P.PN_ITS ---
Subjective 2 Subjective: Subjectively feeling better but is still having diarrhea. States that he would like to try some solid food. Vitals/I&O/Wt Last Vital Signs Temp 97.9 F 08/27/24 04:00 Pulse 69 08/27/24 04:00 Resp 18 08/27/24 04:00 BP 104/67 08/27/24 04:00 Pulse Ox 98 08/27/24 04:00 O2 Del Method Room Air 08/27/24 04:00 08/26/24 08/27/24 08/27/24 22:59 06:59 14:59 Intake Total 730 / 1780 1645 / 3425 Output Total 1400 / 1400 500 / 1900 Balance -670 / 380 1145 / 1525 Weight last 48 hrs Weight 144 lb Weight 140 lb 12.8 oz Physical Exam 2 GI: OTHER: Abdominal exam is benign abdomen is soft very minimal tenderness to palpation, nondistended. Data 08/26/24 04:40 08/25/24 03:05 A&P Assessment and plan (1) GERD (gastroesophageal reflux disease): (2) Chronic diarrhea: Plan Response to therapy has been slow, still having diarrhea. We can advance to GI soft diet today if patient tolerates he will be able to transition to the outpatient setting on that diet. If his symptoms worsen and he continues to have diarrhea he will require a GI evaluation. Attestations 2 Medical Necessity Statement*: Per medical team Coding Level of Care Code Acute Code for Chg Fwd Diagnoses GERD (gastroesophageal reflux disease) K21.9 Chronic diarrhea K52.9
[2024-08-27 07:56] VITALS: BP 101/69; PULSE 67; RESP 18; TEMP 36.4; O2SAT 100
[2024-08-27] MEDS: BuSPIRONE 10 mg Tablet 30 MG PO (08:24)
[2024-08-27] MEDS: zonisamide 100 MG Capsule 200 MG PO (08:25)
[2024-08-27] MEDS: fluoxetine 20 mg Capsule PO (08:25)
[2024-08-27] MEDS: phosphorus 250 mg Tablet PO (08:25)
[2024-08-27] MEDS: atorvastatin 40 mg Tablet 80 MG PO (08:25)
[2024-08-27] MEDS: clopidogrel 75 mg Tablet PO (08:25)
[2024-08-27 08:50] VITALS: PULSE 73; RESP 18; O2SAT 99
[2024-08-27 11:57] VITALS: BP 118/75; PULSE 82; RESP 18; TEMP 36.4; O2SAT 98
[2024-08-27 12:36] LABS: Basophils % 0.1 %; Hematocrit 37.7 % (37-53); Lymphocytes # 1.3 10^3/uL (0.8-4.8); Lymphocytes % 10.8 %; Mean Corpuscular HGB Conc 32.9 g/dL (30-55); Mean Corpuscular Hemoglobin 33.2 pg (27-33); Mean Corpuscular Volume 100.8 fl (82-101); Mean Platelet Volume 8.7 fL (7.4-10.4); Monocytes # 0.4 10^3/uL (0.2-0.9); Monocytes % 3.6 %; Neutrophils # 10.23 10^3/uL (1.8-7.7); Neutrophils % 84.9 %; Nucleated Red Blood Cells % 0 %; Platelet Count 255 10^3/cmm (157-399); Red Blood Count 3.74 10^6/uL (3.85-5.65); Red Cell Distribution Width 12.5 % (12.1-15.1); White Blood Count 12.04 10^3/uL (3.29-11.43)
--- NOTE | 2024-08-27 12:39 | P.PN_ITS ---
Subjective 2 Subjective: Seen today. Sitting up in the edge of bed. Getting his IV wrapped planning to take a shower. He states his diarrhea is started to slow down. He states he took a GI soft diet this morning for breakfast and has tolerated okay so far. He states if he tolerates his next meal he would like to go home by tonight if possible. He states he has not gone back to see GI yet in [place]. He states he received a letter from their clinic requesting him to visit. He had biopsies and colonoscopies done previously however does not know his results. His records from [place] are not here yet. We have sent to request so far. Vitals/I&O/Wt Last Vital Signs Temp 97.6 F 08/27/24 11:57 Pulse 82 08/27/24 11:57 Resp 18 08/27/24 11:57 BP 118/75 08/27/24 11:57 Pulse Ox 98 08/27/24 11:57 O2 Del Method Room Air 08/27/24 11:57 08/26/24 08/27/24 08/27/24 22:59 06:59 14:59 Intake Total 730 / 1780 1645 / 3425 480 / 480 Output Total 1400 / 1400 500 / 1900 Balance -670 / 380 1145 / 1525 480 / 480 Weight last 48 hrs Weight 65.317 kg Weight 63.866 kg Physical Exam 2 Narrative: General: AO x 3, HEENT: PERRLA, pupils bilaterally equal and reactive, pallors not present Chest: Normal vesicular breath sounds, no added sounds, equal good air entry bilaterally CVS: S1-S2 regular, no murmurs, no tachycardia, no gallops, no rubs Abdomen: Soft, nontender, no organomegaly, bowel sounds present Neuro: No focal deficits, no facial deformity, AO x3, Data 08/27/24 12:22 08/25/24 03:05 A&P Assessment and plan (1) Diarrhea: (2) GIULIA (acute kidney injury): (3) Acute dehydration: (4) Acute hyponatremia: (5) Metabolic acidosis, increased anion gap: (6) Heart failure with mildly reduced ejection fraction (HFmrEF): (7) Essential (primary) hypertension: (8) Atherosclerotic heart disease of [place] coronary artery with other forms of angina pectoris: (9) GERD (gastroesophageal reflux disease): (10) Depression: (11) Generalized anxiety disorder: (12) Moderate major depression: Plan 53-year-old with past medical history of CAD, preserved ejection fraction heart failure, anxiety disorder, difficile colitis presents with diarrhea and nausea vomiting for 4 days found to have acute hyponatremia, GIULIA with metabolic acidosis. Diarrhea: Does have history of C. difficile in the past. Does have significant leukocytosis. Appreciate CT abdomen pelvis. Check stool studies including C. difficile. For now empirically start on IV Zosyn. If C. difficile positive will add oral vancomycin. IV fluids with normal saline at 75 cc/h. GIULIA: Most likely in setting of dehydration from poor oral intake and diarrhea. Cannot rule out some component of CKD as well. Did have cardiac angiogram on 07/15. IV fluid as above. Strict and proper charting, daily weights. CT on pelvis negative for obstructive nephropathy. Associated with hyponatremia, uremia, metabolic acidosis. Hyponatremia: Most likely in setting of dehydration. IV fluid as above. Monitor BMP every 6 hours. Target improvement of 8 to 10 mEq in 24 hrs. Metabolic acidosis: Management as above. Check lactic acid. CAD: History of multiple PCI: Last echocardiogram from July 2022 shows an EF of 45 to 50%. Will watch for fluid overload. Continue with home dose of aspirin, statin, Plavix. Denies any chest pain. Continue with home dose of ranolazine. Check echocardiogram. Generally anxiety disorder: Continue with home medications of buspirone, fluoxetine, Seroquel. Hypertension: Goal blood pressure less than 140/90 mmHg. Given severe dehydration for now hold off on home dose of Imdur. Monitor blood pressures. Restart as per goal blood pressure. Full code Clear liquid diet Protonix OPD prophylaxis Heparin 5000 every 12 hourly for DVT prophylaxis. 08/25/2024 -Sodium 130, CO2 17, anion gap 20.7 ? Bilirubin 1.5. AST 114. Patient still complaining of abdominal pain. Abdomen pelvis CT performed yesterday showed jejunitis. ? Continue patient on Zosyn ? Consult general surgery ? Continue patient on normal saline 75 cc/h. 08/26/2024 Liver enzymes are improving. Bilirubin has improved as well. ? Continue Zosyn at this time ? Continue normal saline 75 cc/h. Continue clear liquid diet. Will start Solu- Medrol 40 IV every 8 hours for possible IBD flareup?. Patient will need GI consultation going forward if he does not continue to show improvement. We have requested records from [facility]. Discussed all the above with the patient who is agreeable to transfer if required at this point. We will review records before transferring the patient. Awaiting records at this time. In the meantime we are waiting for stool culture ova parasite screen. Appreciate general surgery recommendations. 08/27/2024 Continue Zosyn. Continue IV steroids. Patient has had a good response to steroid initiation. I suspect he may have underlying Crohn's disease. He does have tendinitis has evidence of the CT abdomen. ? Has tolerated GI soft diet this morning for breakfast. ? Plan to discharge patient home later tonight if he continues to tolerate a diet. ? He will need steroid taper at discharge ? Encouraged him to follow-up with GI. He has an appointment upcoming on September 12. ? Discussed with general surgeon Dr. Tom Pike. He agrees with the above plan at this time. Attestations 2 Medical Necessity Statement*: Potential discharge today if patient tolerates a diet. Diagnoses Diarrhea R19.7 GIULIA (acute kidney injury) N17.9 Acute dehydration E86.0 Acute hyponatremia E87.1 Metabolic acidosis, increased anion gap E87.29 Heart failure with mildly reduced ejection fraction (HFmrEF) I50.22 Essential (primary) hypertension I10 Atherosclerotic heart disease of [place] coronary artery with other forms of angina pectoris I25.118 GERD (gastroesophageal reflux disease) K21.9 Depression F32.A Generalized anxiety disorder F41.1 Moderate major depression F32.1
[2024-08-27 12:52] LABS: Magnesium 1.8 mg/dL (1.7-2.3); Phosphorus 2.5 mg/dL (2.5-4.5)
[2024-08-27 15:52] VITALS: BP 119/76; PULSE 62; RESP 17; TEMP 36.8; O2SAT 100
--- NOTE | 2024-08-27 17:16 | P.DS_ITS ---
Discharge Providers Date of Admission: 08/24/24 12:13 Date of Discharge: August 27, 2024 Attending Provider at Admission: Kaia Gurrola MD Attending Provider at Discharge: Linda Perez MD Primary Care Provider: Jarrell Espino MD Diagnoses at Discharge Discharge Diagnosis (1) Diarrhea: Status: Acute (2) GIULIA (acute kidney injury): Status: Resolved (3) Acute dehydration: Status: Resolved (4) Acute hyponatremia: Status: Resolved (5) Metabolic acidosis, increased anion gap: Status: Resolved (6) Heart failure with mildly reduced ejection fraction (HFmrEF): Status: Acute (7) Essential (primary) hypertension: Status: Acute (8) Atherosclerotic heart disease of [place] coronary artery with other forms of angina pectoris: Status: Acute (9) GERD (gastroesophageal reflux disease): Status: Acute (10) Depression: Status: Acute (11) Generalized anxiety disorder: Status: Acute (12) Moderate major depression: Status: Acute Reason for Visit Reason for Visit: n/v Hospital Course Hospital Course Patient was initially admitted for diarrhea nausea vomiting for 4 days. He also had an GIULIA and metabolic acidosis. Patient was volume resuscitated and GIULIA improved. Diarrhea was very slow to improve. All stool studies negative. Ultimately steroids were added to treat a possible IBD flare at which point patient started improving. He already has an appointment coming up with his GI doctor and recently had a colonoscopy and EGD and other workup complete at [facility]. He will be following up with them as an outpatient. General surgery was also consulted during this hospitalization and agree with the plan above. CT abdomen did showed jejunitis. Physical Exam Narrative: General: AO x 3, HEENT: PERRLA, pupils bilaterally equal and reactive, pallors not present Chest: Normal vesicular breath sounds, no added sounds, equal good air entry bilaterally CVS: S1-S2 regular, no murmurs, no tachycardia, no gallops, no rubs Abdomen: Soft, nontender, no organomegaly, bowel sounds present Neuro: No focal deficits, no facial deformity, AO x3, Discharge Data Studies Completed and Pending Completed Studies During Hospitalization Category Date Time Status CT abdomen pelvis wo con [id number] Stat Cat Scan 08/24/24 10:35 Completed CV. echo complete* [id number] Routine Ultrasound 08/25/24 16:50 Completed Pending at discharge Category Date Time Status Blood Culture Stat Lab 08/24/24 18:38 Results OVA and Parasites, Conc and PE Routine Lab 08/24/24 16:53 Results Salmonella / Shigella / Campy Routine Lab 08/24/24 16:53 Results Radiology Impressions Abdomen/Pelvis CT 08/24/24 10:35 IMPRESSION: 1. Mild prominent jejunum with bowel wall thickening suggestive of infectious/inflammatory colitis. 2. Left lower lobe 5 mm solid nodule. In a low risk individual no routine follow-up is recommended. In a high-risk individual optional CT at 12 months can be considered. 3. Coronary artery calcification. Laboratory Results WBC 12.04 10^3/uL (3.29-11.43) H 08/27/24 12:22 RBC 3.74 10^6/uL (3.85-5.65) L 08/27/24 12:22 Hgb 12.40 g/dL (11.27-16.99) 08/27/24 12:22 Hct 37.7 % (37-53) 08/27/24 12:22 MCV 100.8 fl (82-101) 08/27/24 12:22 MCH 33.2 pg (27-33) H 08/27/24 12:22 MCHC 32.9 g/dL (30-55) 08/27/24 12:22 RDW 12.5 % (12.1-15.1) 08/27/24 12:22 Plt Count 255 10^3/cmm (157-399) 08/27/24 12:22 MPV 8.7 fL (7.4-10.4) 08/27/24 12:22 Neut % (Auto) 84.9 % 08/27/24 12:22 Lymph % (Auto) 10.8 % 08/27/24 12:22 [place] % (Auto) 3.6 % 08/27/24 12:22 Eos % (Auto) 0.0 % 08/27/24 12:22 Baso % (Auto) 0.1 % 08/27/24 12:22 Neut # (Auto) 10.23 10^3/uL (1.8-7.7) H 08/27/24 12:22 Lymph # (Auto) 1.3 10^3/uL (0.8-4.8) 08/27/24 12:22 [place] # (Auto) 0.4 10^3/uL (0.2-0.9) 08/27/24 12:22 Eos # (Auto) 0.0 10^3/uL (0.0-0.8) 08/27/24 12:22 Baso # (Auto) 0.0 10^3/uL (0.0-0.1) 08/27/24 12:22 Nucleated RBC % (auto) 0 % 08/27/24 12:22 Nucleated RBCs # 0.0 /100WBC 08/27/24 12:22 Sodium 130 mmol/L (136-145) L 08/25/24 03:05 Potassium 3.7 mmol/L (3.5-5.1) 08/25/24 03:05 Chloride 96 mmol/L (98-107) L 08/25/24 03:05 Carbon Dioxide 17 mmol/L (22-29) L 08/25/24 03:05 Anion Gap 20.7 (5-19) H 08/25/24 03:05 BUN 33 mg/dL (6-20) H 08/25/24 03:05 Creatinine 1.0 mg/dL (0.7-1.2) 08/25/24 03:05 GFR Calculation 78.5 mL/min (90-130) L 08/25/24 03:05 Glucose 115 mg/dL (65-115) 08/25/24 03:05 Estimat Average Glucose 105 08/24/24 18:38 Hemoglobin A1c 5.3 % (4.0-6.0) 08/24/24 18:38 Calculated Osmolality 278 mOsm/kg (285-295) L 08/25/24 03:05 Lactic Acid 1.7 mmol/L (0.5-2.2) 08/24/24 18:38 Calcium 8.9 mg/dL (8.5-10.5) 08/25/24 03:05 Phosphorus 2.5 mg/dL (2.5-4.5) 08/27/24 12:22 Magnesium 1.8 mg/dL (1.7-2.3) 08/27/24 12:22 Total Bilirubin 1.5 mg/dL (0.15-1.2) H 08/25/24 03:05 AST 114 U/L (0-40) H 08/25/24 03:05 ALT 35 U/L (0-41) 08/25/24 03:05 Alkaline Phosphatase 84 U/L (40-130) 08/25/24 03:05 Total Protein 6.9 g/dL (6.6-8.7) 08/25/24 03:05 Albumin 4.3 g/dL (3.5-5.2) 08/25/24 03:05 Globulin 2.6 g/dL (1.3-4.6) 08/25/24 03:05 Triglycerides 216 mg/dL (0-150) H 08/25/24 03:05 Cholesterol 182 mg/dL (0-200) 08/25/24 03:05 LDL Cholesterol, Calc 104 mg/dL (50-129) 08/25/24 03:05 HDL Cholesterol 35 mg/dL (60-100) L 08/25/24 03:05 LDL/HDL Ratio 2.97 RATIO (0.00-3.22) 08/25/24 03:05 Cholesterol/HDL Ratio 5.20 mg/dL (1.0-5.00) H 08/25/24 03:05 Lipase 35 U/L (13-60) 08/24/24 09:24 TSH 1.30 uIU/mL (0.27-4.20) 08/24/24 18:38 Urine Color Yellow (Yellow) 08/24/24 09:59 Urine Appearance Clear (CLEAR) 08/24/24 09:59 Urine pH 5.5 (5-7) 08/24/24 09:59 Ur Specific [place] 1.020 (1.005-1.030) 08/24/24 09:59 Urine Protein 1+ (Negative) A 08/24/24 09:59 Urine Glucose (UA) Negative (Normal) 08/24/24 09:59 Urine Ketones Trace (Negative) 08/24/24 09:59 Urine Blood 2+ (Negative) A 08/24/24 09:59 Urine Nitrate Negative (Negative) 08/24/24 09:59 Urine Bilirubin Negative (Negative) 08/24/24 09:59 Urine Urobilinogen 0.2 mg/dL (Negative) 08/24/24 09:59 Ur Leukocyte Esterase Negative (Negative) 08/24/24 09:59 Urine RBC 3-5 /hpf (0-2) 08/24/24 09:59 Urine WBC 0-5 /hpf (0-5) 08/24/24 09:59 Ur Squamous Epith Cells 0-5 /hpf (0-5) 08/24/24 09:59 Amorphous Sediment Not Reportable 08/24/24 09:59 Urine Bacteria None seen /hpf (NONE) 08/24/24 09:59 Hyaline Casts 45.90 /lpf 08/24/24 09:59 C. difficile (PCR) Negative (Negative) 08/24/24 16:53 Vitals Last Vital Signs Temp 98.3 F 08/27/24 15:52 Pulse 62 08/27/24 15:52 Resp 17 08/27/24 15:52 BP 119/76 08/27/24 15:52 Pulse Ox 100 08/27/24 15:52 O2 Del Method Room Air 08/27/24 15:52 Discharge Plan Discharge Patient Disposition: Home Condition: Stable Prescriptions: New prednisone 20 mg tablet See Rx Instructions .ROUTE .COMPLEX Qty: 37 0RF Rx Instructions: 40 mg daily x 1 week 30 mg daily x 1 week 20 mg daily x 1 week 10 mg daily x 1 week 5 mg daily x 1 week then stop ciprofloxacin HCl [Cipro] 500 mg tablet 500 mg PO BID Qty: 10 0RF Continued albuterol sulfate 2.5 mg /3 mL (0.083 %) solution for nebulization 2.5 mg inhalation BID PRN (Reason: Shortness Of Breath) nitroglycerin 0.4 mg tablet, sublingual 0.4 mg sublingual Q5M PRN (Reason: chest pain) 30 Days Qty: 30 3RF Rx Instructions: until response; do not exceed 3 doses per episode buspirone 30 mg tablet 30 mg PO BID Qty: 60 2RF isosorbide mononitrate 30 mg tablet extended release 24 hr 30 mg PO DAILY Qty: 30 5RF fluoxetine 20 mg tablet 20 mg PO DAILY Qty: 60 1RF fluticasone propion-salmeterol [Advair Diskus] 100-50 mcg/dose blister with device 1 inh INHALATION BID Qty: 60 0RF (DME) Bone Growth Stimulator See Rx Instructions .Route .MEDSUPPLY Qty: 1 0RF Rx Instructions: As directed Klor-Con M20 20 mEq tablet,ER particles/crystals 20 meq PO BID 10 Days Qty: 20 0RF budesonide 0.5 mg/2 mL suspension for nebulization 0.5 mg inhalation BID PRN (Reason: copd) Qty: 60 0RF clopidogrel 75 mg tablet 75 mg PO DAILY Qty: 90 0RF quetiapine [Seroquel] 50 mg tablet 50 mg PO BEDTIME Qty: 90 0RF pantoprazole 40 mg tablet,delayed release (DR/EC) 40 mg PO DAILY 30 Days Qty: 30 1RF clonazepam 2 mg tablet 2 mg PO BID PRN (Reason: Anxiety attacks) 30 Days Qty: 60 2RF hydrocodone-acetaminophen 5-325 mg tablet 1 tab PO Q12H PRN (Reason: pain) 28 Days Qty: 56 0RF ranolazine 500 mg tablet extended release 12 hr 500 mg PO BID Qty: 60 3RF albuterol sulfate [Ventolin HFA] 90 mcg/actuation HFA aerosol inhaler 2 puff INHALATION Q4H PRN (Reason: Shortness Of Breath) nicotine 21 mg/24 hr patch 24 hour See Rx Instructions .ROUTE .COMPLEX Rx Instructions: Apply and change one patch daily for 6 weeks. ondansetron HCl 4 mg tablet 4 mg PO Q8H PRN (Reason: Nausea) aspirin 81 mg tablet,delayed release (DR/EC) 81 mg PO QAM No Action atorvastatin 80 mg tablet See Rx Instructions .ROUTE .COMPLEX Qty: 90 3RF Dose Instruction: TAKE 1 TABLET BY MOUTH EVERY MORNING Rx Instructions: TAKE 1 TABLET BY MOUTH EVERY MORNING tamsulosin 0.4 mg capsule 0.4 mg PO QAM Qty: 90 0RF zonisamide 100 mg capsule 200 mg PO BID Qty: 180 0RF Discharge Orders: Discharge Order (Routine); Ordered 08/27/24 Ordered By: Linda Perez Other Ambulatory Orders: Basic Metabolic Panel (Routine) Timeframe: 3 Days [facility] - Location: Lab - Main Lab Ordered By: Linda Perez Referrals: Jarrell Espino MD [Primary Care Provider] - 1-3 days (We have notified your physician's clinic of the need for a follow-up appointment to be scheduled. If you have not heard from them within the next 2 business days, please call them directly. ) Discharge Diet: GI Soft Discharge Activity: Resume usual activity Patient Instructions: Ciprofloxacin (By mouth), Prednisone (By mouth), Metronidazole (By mouth), Opioid Safety Activity Restrictions/Additional Instructions: Please f/u with GI as previously scheduled for sep 12, 2024. Please come back to ER if symptoms worsen or new symptoms develop. please repeat labs as directed follow up with pcp as early as possible Discharge Attestations Time Spent in Discharge Care*: less than 30 min Status at Discharge: Cognitive status at discharge: cognitively intact , Behavioral status at discharge: cooperative , Quality Metrics Clinical Quality Measures [ No reported AMI, CVA or VTE this stay] Coding Level of Care Code Acute Code for Chg Fwd Diagnoses Diarrhea R19.7 GIULIA (acute kidney injury) N17.9 Acute dehydration E86.0 Acute hyponatremia E87.1 Metabolic acidosis, increased anion gap E87.29 Heart failure with mildly reduced ejection fraction (HFmrEF) I50.22 Essential (primary) hypertension I10 Atherosclerotic heart disease of [place] coronary artery with other forms of angina pectoris I25.118 GERD (gastroesophageal reflux disease) K21.9 Depression F32.A Generalized anxiety disorder F41.1 Moderate major depression F32.1
[2024-08-27 17:42] VITALS: BP 119/76; PULSE 62; RESP 17; TEMP 36.8; O2SAT 100
--- OUTSIDE RECORDS SUMMARY | 2024-09-02 05:36 | XMS_ITS | Encounter Summary ---
Author Organization [facility] Address [address] [place] [address] Care Team Providers Care Insurance Verify Rep Name Role Phone Unavailable Primary Care Provider Unavailabl e Reason for Referral * Outpatient Services (Routine) - Closed Specialty Diagnoses / Procedures Referred By Contac t Referred To Contact Diagnoses Cervical spondylosis without myelopathy Procedures XR FLUORO NEEDLE GUIDANCE Theodore Garrido MD [address] [place] [id number] Phone: tel: fax: Referral ID Status Reason Start Date Expiration Date Visits Re quested Visits Authorized [id number] Closed 11/04/2014 12/05/2015 1 1 Encounter Details Date Type Department Care Team (Late st Contact Info) Description 11/04/2014 Ancillary Orders [facility] Pain Management Procedures [place] [address] [place] [address] Theodore Garrido MD [address] [place] [phone] Cervical spondylosis without myelopathy (Primary Dx) Social History Tobacco Use Types Packs/Day Years Used Date Smoking Tobacco: Every Day E-Cigarette/M ist Inhalation Device Smokeless Tobacco: Never Alcohol Use Standard Drinks/Week Comments No 0 (1 standard drink = 0.6 oz pur e alcohol) Sex and Gender Information Value Date Recorded Sex Assigned at Not on file 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 ??Exam was auto-finalized. ?? Theodore Garrido MD DIAGNOSTIC IMAGING ORDERABLES Final Result documented in this encounter Visit Diagnoses Diagnosis Cervical spondylosis without myelopathy- Primary Cervical spondylosis without myelopathy documented in this encounter
--- OUTSIDE RECORDS SUMMARY | 2024-09-02 05:36 | XMS_ITS | Clinical Summary ---
Author Organization [facility] [place] Address [address] [place] [address] Phone Care Team Providers Care Body Bumper Name Role Phone Unavailable Primary Care Provider Unavailabl e Allergies Active Allergy Reactions Criticality Noted Date Comments Gabapentin Seizure High 01/08/2015 Meperidine Hives High 10/15/2014 Morphine Hives High 10/15/2014 Tramadol Seizure High 01/08/2015 Medications QUEtiapine (SEROQUEL) 50 mg tabletIndicatio ns:Neck pain,Cervical stenosis of spine Take 50 mg by mouth daily . Active clonazePAM (KLONOPIN) 0.5 mg TabletIndicatio ns:Neck pain,Cervical stenosis of spine Take 1 mg by mouth 3 times daily as needed . Active Zonisamide (ZONEGRAN) 100 mg capsuleIndicati ons:Neck pain,Cervical stenosis of spine Take 100 mg by mouth daily. Active esomeprazole (NEXIUM) 20 mg Capsule, Delayed Release(E.C.)In dications:Neck pain,Cervical stenosis of spine Take 40 mg by mouth daily before breakfast. Active atorvastatin (LIPITOR) 40 mg tabletIndicatio ns:Neck pain,Cervical stenosis of spine Take 40 mg by mouth Daily LATE. Active tamsulosin (FLOMAX) 0.4 mg Extended Release 24 hour capsuleIndicati ons:Neck pain,Cervical stenosis of spine Take 0.4 mg by mouth daily. Active lisinopril (PRINIVIL) 10 mg tabletIndicatio ns:Neck pain,Cervical stenosis of spine Take 10 mg by mouth daily. Active furosemide (LASIX) 20 mg tabletIndicatio ns:Neck pain,Cervical stenosis of spine Take 20 mg by mouth 1 time daily as needed for Other (See Comment) (Assist with urination) . Active ondansetron (ZOFRAN ODT) 4 mg Tablet, Rapid DissolveIndicat ions:Neck pain,Cervical stenosis of spine Place 4 mg under tongue every 8 hours as needed for Nausea/Emesis. Active ranitidine (ZANTAC) 150 mg tablet Take 150 mg by mouth 2 times daily. Active busPIRone (BUSPAR) 30 mg Tablet Take 30 mg by mouth 2 times daily. Active ibuprofen (MOTRIN) 800 mg tablet Take 800 mg by mouth every 8 hours as needed for Pain, Mild. Active aspirin (ECOTRIN EC) 81 mg Tablet, Delayed Release (E.C.) Take 81 mg by mouth daily. Active fluticasone-jun meterol (ADVAIR DISKUS) 100-50 mcg/dose disk inhaler Take 1 Puff by inhalation 2 times daily. Active albuterol sulfate (VENTOLIN HFA) 90 mcg/Actuation inhaler Take 1 Puff by inhalation every 6 hours as needed for Shortness of Breath. Active tiotropium (SPIRIVA) 18 mcg capsule Take 18 mcg by inhalation daily. Active nitroglycerin (NITROSTAT) 0.4 mg Tablet, Sublingual Place 0.4 mg under tongue every 5 minutes as needed for Chest Pain. Active 0mega-3 fatty acids-vitamin E (FISH OIL) 1,000 mg Capsule Take 1,000 mg by mouth daily. Active metoprolol tartrate (LOPRESSOR) 25 mg tablet Take 25 mg by mouth 2 times daily. Active potassium chloride (KLOR-CON) 8 mEq Extended Release tablet Take 8 mEq by mouth 1 time daily as needed. Active multivitamin (DAILY-FAHAD) tablet Take 1 Tablet by mouth daily. Active clopidogrel (PLAVIX) 75 mg Tablet Take 75 mg by mouth daily. Active buPROPion HCl (WELLBUTRIN XL) 300 mg Extended Release 24 hour tablet Take 300 mg by mouth 2 times daily. Active FENOFIBRATE ORAL Take 48 mg by mouth daily. 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 Gender Identity Not on file Sexual Orientation Not on file Last Filed Vital Signs Vital Sign Reading Time Taken Comments Blood Pressure 125/90 03/05/2019 9:57 AM CDT Pulse 85 11/29/2015 1:03 PM CDT Temperature 36.3 ??C (97.4 ??F) 11/29/2015 1:03 PM CD T Respiratory Rate 16 02/07/2015 7:18 AM CDT Oxygen Saturation 96% 11/29/2015 1:03 PM CDT Inhaled Oxygen Concentration - - Weight 101.2 kg (223 lb) 03/05/2019 9:57 AM CDT Height 170.2 cm (5' 7 ) 03/05/2019 9:57 AM CDT Body Mass Index 34.93 03/05/2019 9:57 AM CDT Plan of Treatment Health Maintenance Due Date Last Done Comments Pre-Diabetes and Diabetes Screening 1971 DTAP/TDAP/TD VACCINES (1 - Tdap) 12/28/1990 HEPATITIS B VACCINES (1 of 3 - 19+ 3-dose series) 07/1990 COLORECTAL SCREENING 12/28/2016 Colorectal Cancer Screening 12/28/2016 FIT-DNA Q 3 years 12/28/2016 FIT/FOBT Q 1 year 12/28/2016 Flex Sig/CT Colonography Q 5 years 12/28/2016 PNEUMOCOCCAL VACCINE 0-64 YEARS (2 of 2 - PCV) 020 10/15/2018 ZOSTER VACCINE (1 of 2) 12/28/2021 INFLUENZA VACCINE (#1) 2024 10/15/2018 Medical Devices Implanted Type Area Trade Economist Device Identifier Shelf Expiration Date Model / Serial / Lot Plate Aviator 2lvl 30mm [id number] - Saviatorld#2015 [id number] Implanted:Qty: 1 on 02/05/2015 by Wade Paniagua MD at [facility] Plate N/A: Spine Cervical Anterior LESLIE- SPINE [id number] / AVIATORLD#2 [id number] / AVSLD#[id number] Putty Bio Dbm 2ml 99067 - [id number] Implanted:Qty: 1 on 02/05/2015 by Wade Paniagua MD at [facility] Putty N/A: Spine Cervical Anterior LESLIE- SPINE 04/14/2015 15230 / [id number] / [id number] Putty Bio Dbm 1ml 23976 - [id number] Implanted:Qty: 1 on 02/05/2015 by Wade Paniagua MD at [facility] Putty N/A: Spine Cervical Anterior LESLIE- SPINE 05/13/2015 03816 / [id number] / [id number] Screw Avtr Va Sd 4.0x14mm [id number] - Saviatorld#2014 [id number] Implanted:Qty: 4 on 02/05/2015 by Wade Paniagua MD at [facility] Screw N/A: Spine Cervical Anterior LESLIE- SPINE [id number] / AVIATORLD#2 [id number] / AVSLD#[id number] Screw Avtr Va Sd 4.0x16mm [id number] - Saviatorld#2014 [id number] Implanted:Qty: 2 on 02/05/2015 by Wade Paniagua MD at [facility] Screw N/A: Spine Cervical Anterior LESLIE- SPINE [id number] / AVIATORLD#2 [id number] / AVSLD#[id number] Spacer Avs As 14x16 7mm 4d [id number] - Saviatorld#2014 [id number] Implanted:Qty: 2 on 02/05/2015 by Wade Paniagua MD at [facility] Spacer N/A: Spine Cervical Anterior LESLIE- SPINE [id number] / AVIATORLD#2 [id number] 68 / AVSLD#[id number] Explanted Type Area Trade Economist Device Identifier Shelf Expiration Date Model / Serial / Lot Screw Avtr Va Sd 4.0x14mm [id number] - Saviatorld#2014 [id number] Implanted:Wade Paniagua MD (Quantity not on file) Explanted:Qty: 1 on 02/05/2015 by Wade Paniagua MD at [facility] Screw N/A: Spine Cervical Anterior LESLIE- SPINE [id number] / AVIATORLD#2 [id number] 68 / AVSLD#[id number] [place] Advance Directives For more information, please contact: [phone] * Full Code (Latest Code Status on File) Date Activated Date Inactivated Comments 02/05/2015 6:22 AM 02/07/2015 1:44 PM
--- OUTSIDE RECORDS SUMMARY | 2024-09-02 05:36 | XMS_ITS | Clinical Summary ---
Author Organization [facility] Address [address] [place]: Epic Prelude ADT DAQUAN GARDUNO [address] Care Team Providers Care Learning Support Specialist Name Role Phone Davy Blanton MD Primary Care Provider [phone] Allergies Active Allergy Reactions Criticality Noted Date Comments Gabapentin Seizure High 01/08/2015 Meperidine Hives High 10/15/2014 Morphine Hives High 10/15/2014 Tramadol Seizure High 01/08/2015 Unclassified Drug Abdominal Pain Low 03/14/2023 Medications nitroglycerin (NITROSTAT) 0.4 mg Tablet, Sublingual Place 0.4 mg under tongue every 5 minutes as needed for Chest Pain. Active albuterol sulfate 90 mcg/Actuation inhalerIndicati ons:Chronic obstructive pulmonary disease, unspecified COPD type (CMS/HCC) Take 1 Puff by inhalation every 6 hours as needed for Shortness of Breath. 8.5 Gram 11 06/03/20 21 Active naloxone (NARCAN) 4 mg/spray [place], Non-Aerosol EMERGENCY USE ONLY: Administer 1 spray (4 mg) in one nostril one time. May repeat in alternating nostrils every 2-3 min until responsive or EMS arrives. 2 Each 3 11/19/19 22 Active Additional Information Patient not taking.Reported on 12/06/2023 0mega-3 fatty acids-vitamin E (FISH OIL) 1,000 mg Capsule Take 1,000 mg by mouth daily. 01/09/20 15 Active multivitamin (DAILY-FAHAD) tablet Take 1 Tablet by mouth daily. 05/31/20 15 Active aspirin (ECOTRIN EC) 81 mg Tablet, Delayed Release (E.C.) Take 81 mg by mouth daily. 01/09/20 Active FENOFIBRATE ORAL Take 48 mg by mouth daily. 03/05/20 Active clopidogreL (PLAVIX) 75 mg Tablet Take 75 mg by mouth daily. 03/05/20 Active promethazine (PHENERGAN) 12.5 mg TabletIndicatio ns:Cyclical vomiting Take 1 Tablet (12.5 mg) by mouth every 6 hours as needed for Nausea/Emesis. 30 Tablet 11/22/19 Active ondansetron (ZOFRAN) 4 mg TabletIndicatio ns:Cyclical vomiting Take 1 Tablet (4 mg) by mouth every 8 hours as needed for Nausea/Emesis. 30 Tablet 11/22/19 Active budesonide (PULMICORT RESPULE) 0.5 mg/2 mL Suspension for NebulizationInd ications:Chroni c obstructive pulmonary disease, unspecified COPD type (CMS/HCC) Take 2 mL (0.5 mg) by inhalation 2 times daily as needed for Other (See Comment) (COPD exacerbation). 120 mL 03/07/20 Active ipratropium-alb uteroL (DUONEB) 0.5 mg-3 mg(2.5 mg base)/3 mL Solution for Nebulization Take 3 mL by inhalation every 6 hours as needed for Shortness of Breath. 300 mL 03/07/20 Active atorvastatin (LIPITOR) 80 mg tablet Take 80 mg by mouth daily. 03/22/20 Active pantoprazole (PROTONIX) 40 mg Tablet, Delayed Release (E.C.)Indicatio ns:Gastroesopha geal reflux disease without esophagitis,Irr itable bowel syndrome with both constipation and diarrhea Take 1 Tablet (40 mg) by mouth 2 times daily. 60 Tablet 09/13/19 24 Active tamsulosin (FLOMAX) 0.4 mg capsuleIndicati ons:Benign prostatic hyperplasia without lower urinary tract symptoms Take 1 Capsule (0.4 mg) by mouth daily. 30 Capsule 09/13/19 24 Active tiZANidine (ZANAFLEX) 4 mg TabletIndicatio ns:Chronic pain syndrome Take 1 Tablet (4 mg) by mouth every 8 hours as needed for Spasm. 90 Tablet 09/13/19 Active Additional Information Patient not taking.Reported on 12/06/2023 Zonisamide (ZONEGRAN) 100 mg capsuleIndicati ons:Chronic pain syndrome Take 2 Capsules (200 mg) by mouth 2 times daily. 120 Capsule 5 09/13/19 24 Active meloxicam (MOBIC) 7.5 mg tablet Take 1 Tablet (7.5 mg) by mouth daily. Monitor for abdominal pain 30 Tablet 5 09/13/19 24 Active Additional Information Patient not taking.Reported on 12/06/2023 sucralfate (CARAFATE) 1 gram tabletIndicatio ns:Colitis,Jonh roesophageal reflux disease without esophagitis,Irr itable bowel syndrome with both constipation and diarrhea TAKE 1 TABLET BY MOUTH THREE TIMES DAILY BEFORE MEALS 300 Tablet 3 11/06/19 24 Active Additional Information Patient not taking.Reported on 12/06/2023 magnesium L-lactate (MAGTAB) 84 mg Tablet Sustained Release Take 1 Tablet by mouth daily. 09/25/19 24 Active clonazePAM (KlonoPIN) 2 mg tabletIndicatio ns:Moderate episode of recurrent major depressive disorder (CMS/HCC),DIMITRI (generalized anxiety disorder) take 1 tablet by mouth twice daily as needed for anxiety 60 Tablet 2 12/07/19 24 Active busPIRone (BUSPAR) 30 mg TabletIndicatio ns:DIMITRI (generalized anxiety disorder) take 1 tablet by mouth twice daily 200 Tablet 1 03/10/20 24 Active HYDROCODONE-TANYA TAMINOPHEN ORAL Take 325 mg by mouth every 4 hours. 02/06/20 24 Active simethicone 125 mg Tablet, Chewable Dispense (3) 125 mg Simethicone chewable tablets with prep as directed. 3 Tablet 03/25/20 24 Active QUEtiapine (SEROquel) 50 mg tabletIndicatio ns:Moderate episode of recurrent major depressive disorder (CMS/HCC) TAKE 1 TABLET BY MOUTH EVERY DAY AT BEDTIME 100 Tablet 07/28/20 24 Active fluticasone propion-salmete roL (Advair Diskus) 100-50 mcg/dose disk inhalerIndicati ons:Chronic obstructive pulmonary disease, unspecified COPD type (CMS/HCC) inhale one PUFF BY MOUTH TWICE DAILY 1 Each 2 08/25/19 25 Active FLUoxetine (PROzac) 20 mg tablet Take 1 Tablet by mouth daily. 07/24/20 24 Active ranolazine ER (RANEXA) 500 mg Extended Release 12 hour tablet Take 1 Tablet by mouth 2 times daily. 07/31/19 25 Active prochlorperazin e maleate (COMPAZINE) 10 mg tablet Take 1 Tablet (10 mg) by mouth every 6 hours as needed for Nausea/Emesis. 30 Tablet 08/29/19 25 Active fluticasone propion-salmete roL (Advair Diskus) 100-50 mcg/dose disk inhalerIndicati ons:Chronic obstructive pulmonary disease, unspecified COPD type (CMS/HCC) inhale one puff by mouth twice daily 1 Each 2 05/12/20 24 025 Discontinued Active Problems Problem Noted Date Diagnosed Date Allergy to alpha-gal 09/13/2023 HTN (hypertension), benign 08/23/2021 Mixed hyperlipidemia 08/23/2021 Chronic pain syndrome 06/03/2021 Tobacco use 04/18/2021 Moderate tetrahydrocannabinol (THC) dependence 0 04/18/2021 Cyclical vomiting 04/18/2021 DIMITRI (generalized anxiety disorder) 04/18/2021 Moderate episode of recurrent major depressive d isorder 04/18/2021 H. pylori infection 04/18/2021 Irritable bowel syndrome wit h both constipation and diarrhea 04/18/2021 Gastroesophageal reflux disease without esophagi tis 04/18/2021 Chronic obstructive pulmonary disease 04/18/2021 History of 2019 novel coronavirus disease (COVID -19) 04/18/2021 History of tularemia 04/18/2021 Benign prostatic hyperplasia without lower urinary tract symptoms 04/18/2021 Atherosclerosis of [place] co ronary artery of [place] heart with stable angina pectoris 02/05/2015 Cervical spondylosis with radiculopathy 02/06/20 15 History of HI (myocardial infarction) 02/05/2015 Stented coronary artery 02/05/2015 Resolved Problems Problem Noted Date Diagnosed Date Resolved Date Hypokalemia 11/14/2021 11/28/2021 Acute diarrhea 11/14/2021 11/28/2021 Acute pancreatitis 11/14/2021 Hyponatremia 03/05/2021 11/28/2021 Encounters Date Type Department Care Team Description 08/28/2024 11:08 PM PHYSICS TUTOR - 08/29/2024 2:06 AM [facility] Emergency [facility] Emergency Department [address] [place] [phone] Anthony Mendes MD Nausea and vomiting, unspecified vomiting type (Primary Dx); Hypokalemia Discharge Disposition: Home or Self Care 08/28/2024 Travel 08/25/[address] [phone] Davy Blanton MD Chronic obstructive pulmonary disease, unspecified COPD type (CMS/HCC) 07/28/[address] [phone] Davy Blanton MD Moderate episode of recurrent major depressive disorder (CMS/HCC) from Last 3 Months Immunizations Immunization Administration Dates Next Due (PNEUMOVAX 23)(50 YRS UP) PN EUMOCOCCAL POLYSACCHARIDE (PPV23) 0.5 ML, IM 10/15/2018 INFLUENZA VACCINE QUADRIVALENT 6 MOS UP PF IM ,10/15/2018 Family History Medical History Relation Name Comments Cancer Brother Diabetes Brother Parkinson's Disease Brother Stroke Brother Suicide Attempts Father Colon Cancer Neg Hx Relation Name Status Comments Brother Father Social History Tobacco Use Types Packs/Day Years Used Date Smoking Tobacco: Every Day Cigarettes 0.5 40 Cigars Smokeless Tobacco: Never Tobacco Cessation:Ready to Q uit: Yes; Counseling Given: Yes Alcohol Use Standard Drinks/Week Comments No 0 (1 standard drink = 0.6 oz pur e alcohol) Feeling Safe Answer Date Recorded Are you in a relationship wi th someone who hurts you emotionally and/or physically? No 08/28/2024 Sex and Gender Information Value Date Recorded Sex Assigned at Not on file Legal Sex Male 1:45 PM PHYSICS TUTOR Gender Identity Not on file Sexual Orientation Not on file Last Filed Vital Signs Vital Sign Reading Time Taken Comments Blood Pressure 129/77 08/29/2024 1:00 AM PHYSICS TUTOR Pulse 57 08/29/2024 1:00 AM PHYSICS TUTOR Temperature 36.9 ??C (98.4 ??F) 08/28/2024 9:48 PM CS T Respiratory Rate 16 08/29/2024 1:00 AM PHYSICS TUTOR Oxygen Saturation 97% 08/29/2024 1:00 AM PHYSICS TUTOR Inhaled Oxygen Concentration - - Weight 70.3 kg (155 lb) 08/28/2024 1:46 PM PHYSICS TUTOR Height 167.6 cm (5' 6 ) 03/25/2024 6:28 PM CDT Body Mass Index 25.02 03/25/2024 6:28 PM CDT Plan of Treatment Upcoming Encounters Date Type Department Care Team (Late st Contact Info) Description 09/12/2024 11:00 AM PHYSICS TUTOR Office Visit [facility]- [place] [address] [place] [address] Mikaela Vines NP [address] [place] [address] Health Maintenance Due Date Last Done Comments DTAP/TDAP/TD VACCINES (1 - Tdap) 12/28/1990 HEPATITIS B VACCINES (1 of 3 - 19+ 3-dose series) 12/28/1990 Preventative Visit-Managed Medicaid 12/28/1990 FIT-DNA Q 3 years 12/28/2016 FIT/FOBT Q 1 year 12/28/2016 Flex Sig/CT Colonography Q 5 years 12/28/2016 ZOSTER VACCINE (1 of 2) 12/28/2021 Lung Cancer Screening 01/18/2024 01/17/2023 INFLUENZA VACCINE (#1) 2024 , 04/11/2023, 05/03/2021, Additional history exists COVID-19 Vaccine (2023-2 5 season) 2024 07/15/2021, 09/24/2020, 08/27/2020 Pre-Diabetes and Diabetes Screening 05/03/2024 05/03/2021 COLORECTAL SCREENING 04/04/2034 04/04/2024, 04/04/2024, 10/01/2020 Colorectal Cancer Screening 04/04/2034 Abdominal Aortic Aneurysm (A AA) Screening Completed 11/20/2021 Medical Devices Implanted Type Area X Ray Equipment Mechanic Device Identifier Shelf Expiration Date Model / Serial / Lot Plate Aviator 2lvl 30mm [id number] - [facility]#20 [id number] Implanted:Qty : 1 on 02/05/2015 by Wade Paniagua MD Plate N/A: Spine Cervical Anterior LESLIE- SPINE [id number] / AVIATORLD#2 [id number] / AVSLD#[id number] Putty Bio Dbm 1ml 03786 - [id number] Implanted:Qty : 1 on 02/05/2015 by Wade Paniagua MD Putty N/A: Spine Cervical Anterior LESLIE- SPINE 05/13/2015 73105 / [id number] / [id number] Putty Bio Dbm 2ml 05766 - [id number] Implanted:Qty : 1 on 02/05/2015 by Wade Paniagua MD Putty N/A: Spine Cervical Anterior LESLIE- SPINE 04/14/2015 04772 / [id number] / [id number] Screw Avtr Va Sd 4.0x14mm [id number] - Saviatorld#20 [id number] Implanted:Qty : 4 on 02/05/2015 by Wade Paniagua MD Screw N/A: Spine Cervical Anterior LESLIE- SPINE [id number] / AVIATORLD#2 [id number] 68 / AVSLD#[id number] Screw Avtr Va Sd 4.0x16mm [id number] - Saviatorld#20 [id number] Implanted:Qty : 2 on 02/05/2015 by Wade Paniagua MD Screw N/A: Spine Cervical Anterior LESLIE- SPINE [id number] / AVIATORLD#2 [id number] 68 / AVSLD#[id number] Spacer Avs As 14x16 7mm 4d [id number] - Saviatorld#20 [id number] Implanted:Qty : 2 on 02/05/2015 by Wade Paniagua MD Spacer N/A: Spine Cervical Anterior LESLIE- SPINE [id number] / AVIATORLD#2 [id number] 68 / AVSLD#[id number] Stent Implanted:Qty : 4 Stent N/A: Heart Explanted Type Area X Ray Equipment Mechanic Device Identifier Shelf Expiration Date Model / Serial / Lot Screw Avtr Va Sd 4.0x14mm [id number] - Saviatorld#20 [id number] Implanted:Wade Adam MD (Quantity not on file) Explanted:Qty : 1 on 02/05/2015 by Wade Paniagua MD Screw N/A: Spine Cervical Anterior LESLIE- SPINE [id number] / AVIATORLD#2 [id number] 68 / AVSLD#[id number] Procedures Procedure Name Priority Date/Time Associated Diagnosis Comments INFLUENZA A/B, RSV AND COVID-19 PCR PANEL Stat 08/28/2024 4:58 PM PHYSICS TUTOR INFLUENZA A/B, RSV AND COVID-19 PCR PANEL Stat 08/28/2024 4:58 PM PHYSICS TUTOR LIPASE Stat 08/28/2024 4:58 PM PHYSICS TUTOR COMPREHENSIVE METABOLIC PANEL Stat 08/28/2024 4:58 PM PHYSICS TUTOR CBC WITH DIFFERENTIAL Stat 08/28/2024 4:58 PM PHYSICS TUTOR COLONOSCOPY REPORT 04/04/2024 7: [address] LUNG SCREENING (LDCT BASELINE OR ANNUAL) Routine 01/17/2023 1:[address] ABDOMEN PELVIS WO CONTRAST Stat 11/20/2021 8:32 PM CDT HEMOGLOBIN A1C Routine 05/03/2021 11:50 AM CDT Hyperglycemia from Last 3 Months or Most Recently Relevant to Health Maintenance Results * INFLUENZA A/B, RSV AND COVID-19 PCR PANEL (08/28/2024 4:58 PM PHYSICS TUTOR) Pathologist [facility] COVID-19 PCR NOT DETECTED Not Detected 08/28/19 5:53 PM PHYSICS TUTOR [facility] Influenza A by PCR NOT DETECTED Not Detected 08/28/2024 5:53 PM PHYSICS TUTOR [facility] Influenza B by PCR NOT DETECTED Not Detected 08/28/2024 5:53 PM PHYSICS TUTOR [facility] RSV by PCR NOT DETECTED Not Detected 08/28/2024 5:53 PM [facility] Upper Respiratory ENTIRE NASOPHARYNX / Unknown Collection / Unknown 08/28/2024 4:58 PM PHYSICS TUTOR 08/28/2024 5:04 PM PHYSICS TUTOR Narrative [facility] - 08/28/2024 5:53 PM PHYSICS TUTOR This test has been authorized by the FDA under an Emergency Use Authorization for use by authorized laboratories.?? This test has been validated in accordance with the FDA's guidance regarding Coronavirus Disease-2019 testing.?? Optimum specimen types and timing for peak viral levels during infection have not been determined.?? A negative RT-PCR result does not rule out infection with the 2019-Novel Coronavirus. Lisa Guajardo NP MICROBIOLOGY - GENERAL ORDOdessa VALDEZ Final Result [facility] CLIA # [id number] [address] [place] [id number] * (ABNORMAL) CBC WITH DIFFERENTIAL (08/28/2024 4:58 PM PHYSICS TUTOR) Pathologist [facility] WBC 10.4 4.8 - 10.8 K/uL 08/28/2024 5:13 PM [facility] RBC 3.95(L) 4.60 - 6.20 M/uL 08/28/2024 5:13 PM [facility] HEMOGLOBIN 13.1(L) 14.0 - 18.0 g/dL 08/28/2024 5:13 PM [facility] HEMATOCRIT 38.8(L) 41.0 - 53.0 % 08/28/2024 5:13 PM [facility] MCV 98.2 84.0 - 103.0 fL 08/28/2024 5:13 PM [facility] MCH 33.2 27.0 - 34.0 pg 08/28/2024 5:13 PM [facility] MCHC 33.8 30.0 - 35.0 g/dL 08/28/2024 5:13 PM [facility] RDW 12.6 11.0 - 14.5 % 08/28/2024 5:13 PM [facility] RDW-STDEV 45.1 37.0 - 54.0 fL 08/28/2024 5:13 PM [facility] PLATELETS 297 140 - 440 K/uL 08/28/2024 5:13 PM [facility] MPV 8.5(L) 8.9 - 12.8 fL 08/28/2024 5:13 PM [facility] NEUTROPHILS 72 42 - 75 % 08/28/2024 5:13 PM [facility] LYMPHOCYTES 21(L) 24 - 44 % 08/28/2024 5:13 PM [facility] MONOCYTES 6 2 - 10 % 08/28/2024 5:13 PM [facility] EOSINOPHILS 0 0 - 7 % 08/28/2024 5:13 PM [facility] BASOPHILS 0 0 - 1 % 08/28/2024 5:13 PM [facility] IMMATURE GRANULOCYTES 1 0 - 2 % 08/28/2024 5:13 PM [facility] NEUTROPHIL ABSOLUTE 7.46 2.00 - 8.00 K/uL 08/28/2024 5:13 PM [facility] LYMPHOCYTE ABSOLUTE 2.14 1.20 - 4.00 K/uL 08/28/2024 5:13 PM [facility] MONOCYTE ABSOLUTE 0.62(H) 0.10 - 0.60 K/uL 08/28/2024 5:13 PM [facility] [employer] [facility] EOSINOPHIL ABSOLUTE 0.02 0.00 - 0.70 K/uL 08/28/2024 5:13 PM [facility] BASOPHILS ABSOLUTE 0.01 0.00 - 0.20 K/uL 08/28/2024 5:13 PM [facility] IMMATURE GRANULOCYTES ABSOLUTE 0.10 0.00 - 0.10 K/uL 08/28/2024 5:13 PM [facility] Blood Venipuncture / Unknown 08/28/2024 4:58 PM PHYSICS TUTOR 08/28/2024 5:06 PM PHYSICS TUTOR Lisa Guajardo MACHINE HEEL BUILDER HEMATOLOGY ORDERABLES Final Result Performing Organization Address [facility]/ZIP Co de Phone Number [facility] CLIA # [id number] [address] [address] * LIPASE (08/28/2024 4:58 PM PHYSICS TUTOR) [facility] LIPASE 57 13 - 60 U/L 08/28/2024 5:39 PM PHYSICS TUTOR [facility] Blood Venipuncture / Unknown 08/28/2024 4:58 PM PHYSICS TUTOR 08/28/2024 5:06 PM PHYSICS TUTOR Lisa Guajardo MACHINE HEEL BUILDER CHEMISTRY ORDERABLES Final Result Performing Organization Address [facility] Co de Phone Number [facility] CLIA # [id number] [address] [address] * (ABNORMAL) COMPREHENSIVE METABOLIC PANEL (08/28/2024 4:58 PM PHYSICS TUTOR) [facility] SODIUM 134(L) 136 - 145 mmol/L 08/28/2024 5:39 PM [facility] POTASSIUM 3.2(L) 3.5 - 5.1 mmol/L 08/28/2024 5:39 PM [facility] CHLORIDE 102 98 - 107 mmol/L 08/28/2024 5:39 PM [facility] CO2 19(L) 22 - 29 mmol/L 08/28/2024 5:39 PM [facility] CALCIUM 9.1 8.6 - 10.0 mg/dL 08/28/2024 5:39 PM [facility] BUN 11 6 - 20 mg/dL 08/28/2024 5:39 PM [facility] CREATININE 0.75 0.67 - 1.17 mg/dL 08/28/2024 5:39 PM [facility] GLUCOSE 100(H) 74 - 99 mg/dL 08/28/2024 5:39 PM [facility] TOTAL PROTEIN 6.7 6.4 - 8.3 g/dL 08/28/2024 5:39 PM [facility] ALBUMIN 4.2 3.5 - 5.2 g/dL 08/28/2024 5:39 PM [facility] BILIRUBIN TOTAL 0.7 0.2 - 1.0 mg/dL 08/28/2024 5:39 PM [facility] ALKALINE PHOSPHATASE 74 40 - 129 U/L 08/28/2024 5:39 PM [facility] AST 30 10 - 50 U/L 08/28/2024 5:39 PM [facility] ALT 29 <=50 U/L 08/28/2024 5:39 PM [facility] GFR >60 >=60 mL/min/1.7 3 sq meter 08/28/2024 5:39 PM [facility] Comment:eGFR calculated with 2020 CKD-EPI equation. Vegetarian diet, extremely high or low muscle mass, and may affect results. Cystatin C with Glomerular Filtration Rate is a suitable alternative for these patients. ANION GAP 13 9 - 20 mmol/L 08/28/2024 5:39 PM [facility] Blood Venipuncture / Unknown 08/28/2024 4:58 PM PHYSICS TUTOR 08/28/2024 5:06 PM PHYSICS TUTOR us Lisa Guajardo MACHINE HEEL BUILDER CHEMISTRY ORDERABLES Final Result [facility] CLIA # [id number] [address] [place] [address] [place] [address] * COLONOSCOPY REPORT (04/04/2024 7:53 AM CDT) Narrative Procedure Note Hemanth Salmeron MD - 04/04/2024 7:53 AM CDT [facility] GI Patient Name: Josue Cheng Procedure Date: 04/04/2024 Date of : 1970 Admit Type: Outpatient Age: 53 Attending MD: Hemanth Salmeron MD, Procedure: Colonoscopy Indications: chronic diarrhea and abdominal pain Providers: Hemanth Salmeron MD Referring MD: Krysta Armstrong Medicines: Monitored Anesthesia Care Complications: No immediate complications. Procedure: After I obtained informed consent, the scope was passed under direct vision. Throughout the procedure, the patient's blood pressure, pulse, and oxygen saturations were monitored continuously. The Colonoscope was introduced through the anus and advanced to the terminal ileum. The entire colon was examined. Estimated Blood Loss: Estimated blood loss was minimal. Findings: Multiple medium-mouthed and small-mouthed diverticula were found in the sigmoid colon and descending colon. There was no evidence of diverticular bleeding. Non-bleeding internal hemorrhoids were found. The hemorrhoids were Grade I (internal hemorrhoids that do not prolapse). The entire examined colon mucosa otherwise appeared normal. Biopsies for histology were taken with a cold forceps from the right colon and left colon for evaluation of microscopic colitis. The terminal ileum appeared normal. Impression: - Diverticulosis in the sigmoid colon and in the descending colon. There was no evidence of diverticular bleeding. - Non-bleeding internal hemorrhoids. - Otherwise he entire examined colon is normal. Biopsied. - The examined portion of the ileum was normal. Recommendation: -Await pathology -Low fodmap diet -Daily soluble fiber -Additional stool studies Hemanth Salmeron MD 04/04/2024 7:53:37 AM Number of Addenda: 0 Note Initiated On: 04/04/2024 7:30 AM Scope Withdrawal Time 0 hours 8 minutes 5 seconds Scope In: 7:38:54 AM Scope Out: 7:49:45 AM [address] [place] Hemanth Salmeron MD GI PROCEDURE ORDERABLES F inal Result * CT LUNG SCREENING (LDCT BASELINE OR ANNUAL) (01/17/2023 1:36 PM CDT) Anatomical Region Laterality Modality Chest Computed Tomogra phy 01/17/2023 1:23 PM CDT Impressions 01/18/2023 5:27 PM CDT IMPRESSION: Please see below. Exam: CT LUNG SCREENING (LDCT BASELINE OR ANNUAL) Date/Time of Exam: 01/17/2023 1:36 PM Reason For Exam: Lung cancer screening, >= 20 pk-yr smoking history (Age >= 50y) Diagnosis: Tobacco use Technique: Low-dose CT lung cancer screening technique without contrast Findings: ?? Comparison made to CT pelvis from 11/20/2021 CHEST: The heart size normal without pericardial effusion. There is artery coronary disease. The thoracic aorta is nonaneurysmal. The main pulmonary artery is normal in caliber. Tracheobronchial unremarkable. Esophagus unremarkable. No pathologically enlarged thoracic lymph nodes. There is symmetric gynecomastia. Severe paraseptal emphysema scattered areas of pleural-parenchymal scarring. Mild bronchial wall thickening without bronchiectatic change. No pleural fluid collection or pneumothorax. Pulmonary nodules: 1. ??Lateral right upper lobe (series 4 image 57) 3 x 4 mm with average diameter 4 mm. 2. ??Left upper lobe (series 4 image 99) 3 mm. 3. ??Subpleural lateral left lower lobe (series 4 image 167) 2 mm unchanged dating back to 11/20/2021 exam. 4. ??Densely calcified granuloma left lower lobe. 5. ??Elongated airspace opacity adjacent to the left major fissure adjacent to left hemidiaphragm consistent with atelectasis or scarring. The upper abdomen demonstrates no acute findings. No acute osseous abnormality. ?? IMPRESSION: 1. ??Severe paraseptal emphysema. Scattered pulmonary nodules measuring up to 4 mm low suspicion for neoplasm. Lung-RADS 2: ??BENIGN APPEARANCE OR BEHAVIOR. ??Nodules with a very low likelihood of becoming a clinically active cancer due to size or lack of growth. Continue annual screening with LDCT in 12 months. . Narrative Procedure Note Sher Gan MD - 01/18/2023 IMPRESSION: Please see below. Exam: CT LUNG SCREENING (LDCT BASELINE OR ANNUAL) Date/Time of Exam: 01/17/2023 1:36 PM Reason For Exam: Lung cancer screening, >= 20 pk-yr smoking history (Age >= 50y) Diagnosis: Tobacco use Technique: Low-dose CT lung cancer screening technique without contrast Findings: Comparison made to CT pelvis from 11/20/2021 CHEST: The heart size normal without pericardial effusion. There is artery coronary disease. The thoracic aorta is nonaneurysmal. The main pulmonary artery is normal in caliber. Tracheobronchial unremarkable. Esophagus unremarkable. No pathologically enlarged thoracic lymph nodes. There is symmetric gynecomastia. Severe paraseptal emphysema scattered areas of pleural-parenchymal scarring. Mild bronchial wall thickening without bronchiectatic change. No pleural fluid collection or pneumothorax. Pulmonary nodules: 1. Lateral right upper lobe (series 4 image 57) 3 x 4 mm with average diameter 4 mm. 2. Left upper lobe (series 4 image 99) 3 mm. 3. Subpleural lateral left lower lobe (series 4 image 167) 2 mm unchanged dating back to 11/20/2021 exam. 4. Densely calcified granuloma left lower lobe. 5. Elongated airspace opacity adjacent to the left major fissure adjacent to left hemidiaphragm consistent with atelectasis or scarring. The upper abdomen demonstrates no acute findings. No acute osseous abnormality. IMPRESSION: 1. Severe paraseptal emphysema. Scattered pulmonary nodules measuring up to 4 mm low suspicion for neoplasm. Lung-RADS 2: BENIGN APPEARANCE OR BEHAVIOR. Nodules with a very low likelihood of becoming a clinically active cancer due to size or lack of growth. Continue annual screening with LDCT in 12 months. . Davy Blanton MD CT ORDERABLES Final Res ult * CT ABDOMEN PELVIS WO CONTRAST (11/20/2021 8:32 PM CDT) Anatomical Region Laterality Modality Abdomen Computed Tomogra phy 11/20/2021 8:32 PM CDT Impressions 11/20/2021 9:00 PM CDT IMPRESSION: No acute abnormality identified within the abdomen and pelvis. No abnormal bowel distention. No suspected bowel obstruction. Chronic findings as described. [id number] ? Narrative 11/20/2021 9:00 PM CDT Exam: CT ABDOMEN PELVIS WO CONTRAST Date/Time of Exam: 11/20/2021 8:32 PM Reason For Exam: Abdominal distension, c diff, constipation x 1 week, abd pain, r/o megacolon. Diagnosis: C. difficile colitis. Technique: CT of the abdomen was performed without the administration of intravenous contrast. Findings: There is a 4 mm nodule in the left lower lung. Cholecystectomy. Unremarkable liver, pancreas, spleen, and adrenals. There are small bilateral renal cysts. There are a few other renal lesions which are too small to characterize. Unremarkable stomach and small bowel. There is colonic diverticulosis without evidence of diverticulitis. Stool is present throughout the colon. No evidence of bowel wall thickening. No megacolon. The appendix has been resected. There is nonspecific bladder wall thickening. No free fluid. Atherosclerosis. No aortic aneurysm. No acute bone lesion. Procedure Note Pawan Blackmon MD - 11/20/2021 Exam: CT ABDOMEN PELVIS WO CONTRAST Date/Time of Exam: 11/20/2021 8:32 PM Reason For Exam: Abdominal distension, c diff, constipation x 1 week, abd pain, r/o megacolon. Diagnosis: C. difficile colitis. Technique: CT of the abdomen was performed without the administration of intravenous contrast. Findings: There is a 4 mm nodule in the left lower lung. Cholecystectomy. Unremarkable liver, pancreas, spleen, and adrenals. There are small bilateral renal cysts. There are a few other renal lesions which are too small to characterize. Unremarkable stomach and small bowel. There is colonic diverticulosis without evidence of diverticulitis. Stool is present throughout the colon. No evidence of bowel wall thickening. No megacolon. The appendix has been resected. There is nonspecific bladder wall thickening. No free fluid. Atherosclerosis. No aortic aneurysm. No acute bone lesion. IMPRESSION: No acute abnormality identified within the abdomen and pelvis. No abnormal bowel distention. No suspected bowel obstruction. Chronic findings as described. [id number] ORDERABLES Final R esult * HEMOGLOBIN A1C (05/03/2021 11:50 AM CDT) HEMOGLOBIN A1C 5.1 <5.7 % of total Hgb [facility] Comment: For the purpose of screening for the presence of diabetes: <5.7% ? Consistent with the absence of diabetes 5.7-6.4% ?Consistent with increased risk for diabetes ?(prediabetes) > or =6.5% ??Consistent with diabetes This assay result is consistent with a decreased risk of diabetes. Currently, no consensus exists regarding use of hemoglobin A1c for diagnosis of diabetes in children. According to [place] Diabetes Association (ADA) guidelines, hemoglobin A1c <7.0% represents optimal control in non- diabetic patients. Different metrics may apply to specific patient populations. Standards of Medical Care in Diabetes(ADA). ?? Test Performed at: [facility] [address] [place], [place] ??[id number] Gee Hansen D.O., MPH Blood 05/03/2021 11:5 0 AM CDT 05/04/2021 4:28 AM CDT Davy Blanton MD CHEMISTRY ORDERABLES Lyly mcmillan Result Performing Organization Address City/State/[facility] Co de Phone Number [facility] [address] [place] [address] from Last 3 Months or Most Recently Relevant to Health Maintenance Insurance [address] [place] [id number] MEDICAID [place] Advance Directives For more information, please contact: [phone] * Full Code (Latest Code Status on File) Date Activated Date Inactivated Comments 04/04/2024 6:58 AM 04/04/2024 10:27 AM * Full Code Date Activated Date Inactivated Comments 11/14/2021 8:51 PM 11/15/2021 1:41 PM * Full Code Date Activated Date Inactivated Comments 03/05/2021 12:43 AM 03/07/2021 5:22 PM Care Teams Learning Support Specialist Relationship Specialty Start Date End Date Davy Blanton MD [facility] [address] [phone] PCP - General Family Practice 04/18/21
== END 2024-08-27 17:44 | disposition home or self-care (01) | DRG 683 ==
LOC: ER 12:15 → ER IP 14:05 → MEDSURG 16:35
PROVIDERS: Admitting Provider Student in an Organized Health Care Education/Training Program; Emergency Provider Emergency Medicine; PCP Family Medicine; Visit Provider Internal Medicine
DX: N17.9 Acute kidney failure, unspecified (principal); E87.1 Hypo-osmolality and hyponatremia; E87.20 Acidosis, unspecified; I50.20 Unspecified systolic (congestive) heart failure; K52.9 Noninfective gastroenteritis and colitis, unspecified; E86.0 Dehydration; I11.0 Hypertensive heart disease with heart failure; I25.10 Atherosclerotic heart disease of native coronary artery without angina pectoris; Z95.5 Presence of coronary angioplasty implant and graft; K21.9 Gastro-esophageal reflux disease without esophagitis; F41.1 Generalized anxiety disorder; F32.9 Major depressive disorder, single episode, unspecified; Z79.02 Long term (current) use of antithrombotics/antiplatelets; Z79.891 Long term (current) use of opiate analgesic; Z79.82 Long term (current) use of aspirin; Z91.014 Allergy to mammalian meats; J44.9 Chronic obstructive pulmonary disease, unspecified; I10 Essential (primary) hypertension; E78.2 Mixed hyperlipidemia; I25.2 Old myocardial infarction; Z96.651 Presence of right artificial knee joint; F17.210 Nicotine dependence, cigarettes, uncomplicated; K40.90 Unilateral inguinal hernia, without obstruction or gangrene, not specified as recurrent; G89.29 Other chronic pain
CPT/HCPCS: 36415; 74176; 80048; 80053; 80061; 81001; 82274; 83036; 83605; 83630; 83690; 83735; 84100; 84443; 85025; 87040; 87045; 87177; 87209; 87427; 87449; 87493; 93306; 94640; 96365; 96372; 96375; 96376; 99285; J1171; J1644; J2270; J2405; J2470; J2543; J2765; J2919; J7030; J7626

== ENCOUNTER 2024-09-04 14:43 | Emergency (ER) | payer MEDICAID, SELFPAY ==
[2024-09-04 15:15] VITALS: BP 90/60; PULSE 101; RESP 18; TEMP 36.9; O2SAT 99; BMI 25.0
[2024-09-04 17:30] VITALS: BP 106/74; PULSE 68; O2SAT 99
[2024-09-04] MEDS: sodium chloride 0.9% 1,000 ML 999 ML IV (17:38)
[2024-09-04 17:40] LABS: Basophils % 0.4 %; Eosinophils # 0.1 10^3/uL (0.0-0.8); Eosinophils % 0.7 %; Hematocrit 36.9 % (37-53); Lymphocytes % 30.7 %; Mean Corpuscular HGB Conc 34.4 g/dL (30-55); Mean Corpuscular Hemoglobin 33.1 pg (27-33); Mean Corpuscular Volume 96.1 fl (82-101); Mean Platelet Volume 8.7 fL (7.4-10.4); Monocytes # 0.7 10^3/uL (0.2-0.9); Monocytes % 7.1 %; Neutrophils # 5.86 10^3/uL (1.8-7.7); Neutrophils % 60.8 %; Nucleated Red Blood Cells % 0 %; Platelet Count 278 10^3/cmm (157-399); Red Blood Count 3.84 10^6/uL (3.85-5.65); Red Cell Distribution Width 12.4 % (12.1-15.1); White Blood Count 9.66 10^3/uL (3.29-11.43)
[2024-09-04] MEDS: ondansetron 2 mg/ML SDV 2 mL 4 MG IVP (17:40)
--- NOTE | 2024-09-04 17:42 | W.ED.NAVMDI ---
HPI - Nausea/Vomiting/Diarrhea General: Chief complaint: Nausea/Vomiting/Diarrhea Stated complaint: vomitting Time Seen by Provider: 09/04/24 17:17 Source: patient Mode of arrival: ambulatory Limitations: no limitations History of Present Illness: 53-year-old male states he been having vomiting and GI issues for the last month. He had been admitted here 2 weeks ago with acute kidney injury from vomiting he states that since he has been discharged continue vomiting and cramping. He denies any worse improving factors denies any severe pain denies any fevers. Associated nausea: Yes Associated symtoms: Reports nausea; Denies chest pain or headache(s) Related Data Home Medications ?Medication ?Instructions ?Recorded ?Confirmed albuterol sulfate 2.5 mg/3 mL 2.5 mg inhalation BID PRN 03/14/23 08/24/24 (0.083 %) solution for nebulization Shortness Of Breath albuterol sulfate 90 mcg/actuation 2 puff inhalation Q4H PRN 08/24/24 08/24/24 aerosol inhaler (Ventolin HFA) Shortness Of Breath aspirin 81 mg tablet,delayed 81 mg PO QAM 08/24/24 08/24/24 release nicotine 21 mg/24 hr daily See Rx Instructions .Route .COMPLEX 08/24/24 08/24/24 transdermal patch ondansetron HCl 4 mg tablet 4 mg PO Q8H PRN Nausea 08/24/24 08/24/24 Previous Rx's ?Medication ?Instructions ?Recorded Bone Growth Stimulator #1 ea 01/04/24 fluticasone 100 mcg-salmeterol 50 1 inh inhalation BID #60 ea 02/05/24 mcg/dose blistr powdr for inhalation (Advair Diskus) nitroglycerin 0.4 mg sublingual 0.4 mg sublingual Q5M PRN chest 02/06/24 tablet pain 30 days #30 tabs potassium chloride 20 mEq 20 meq PO BID 10 days #20 tabs 05/01/24 tablet,extended release(part/cryst) (Klor-Con M) isosorbide mononitrate 30 mg 30 mg PO DAILY #30 tabs 06/24/24 tablet,extended release 24 hr buspirone 30 mg tablet 30 mg PO BID #60 tabs 07/09/24 ranolazine 500 mg tablet,extended 500 mg PO BID #60 tabs 07/15/24 release,12 hr budesonide 0.5 mg/2 mL suspension 0.5 mg (2 mL) inhalation BID PRN 07/28/24 for nebulization copd #60 mL clopidogrel 75 mg tablet 75 mg PO DAILY #90 tabs 07/28/24 quetiapine 50 mg tablet (Seroquel) 50 mg PO BEDTIME #90 tabs 07/28/24 pantoprazole 40 mg tablet,delayed 40 mg PO DAILY 30 days #30 tabs 08/13/24 release fluoxetine 20 mg tablet 20 mg PO DAILY #60 tabs 08/18/24 clonazepam 2 mg tablet 2 mg PO BID PRN Anxiety attacks 30 08/25/24 days #60 tabs hydrocodone 5 mg-acetaminophen 325 1 tab PO Q12H PRN pain 28 days #56 08/26/24 mg tablet tabs ciprofloxacin HCl 500 mg tablet 500 mg PO BID #10 tabs 08/27/24 (Cipro) prednisone 20 mg tablet See Rx Instructions .Route 08/27/24 .COMPLEX #37 tabs atorvastatin 80 mg tablet See Rx Instructions .Route 09/02/24 .COMPLEX #90 tabs tamsulosin 0.4 mg capsule 0.4 mg PO QAM #90 caps 09/02/24 zonisamide 100 mg capsule 200 mg (2 x 100 mg) PO BID #180 09/03/24 caps ondansetron 4 mg disintegrating 4 mg PO Q6H PRN nausea and 09/04/24 tablet vomiting #14 tabs potassium chloride 20 mEq 20 meq PO BID #10 tabs 09/04/24 tablet,extended release (K-Tab) Allergies Allergy/AdvReac Type Severity Reaction Status Date / Time meperidine (From Demerol) Allergy Severe ALGY-Hives Verified 09/04/24 15:18 Alpha-Gal Allergy upset GI Verified 09/04/24 15:18 (Gfztswerx-Djbpj-6,3-Gala (Ojexhaiiq-Vjfww-0,3-Galactose (Alph) gabapentin AdvReac Severe ADR-Seizure Verified 09/04/24 15:18 morphine AdvReac Severe ALGY-Hives Verified 09/04/24 15:18 tramadol AdvReac Severe ADR-Seizure Verified 09/04/24 15:18 Review of Systems Const: Denies: fever(s), chills, body aches or change in appetite ENMT: Denies: throat pain or dental pain Card: Denies: chest pain Resp: Denies: dyspnea GI: Reports: nausea and vomiting; Denies: diarrhea Musc: Denies: neck pain or back pain Skin/Breast: Denies: rash Neuro: Denies: headache(s) PFS ED PFSH: Medical History Moderate major depression Generalized anxiety disorder Alpha-gal syndrome Heart failure with mildly reduced ejection fraction (HFmrEF) Depression Chronic abdominal pain Hyponatremia Marijuana use, continuous H. pylori duodenitis Elevated glucose Anxiety and depression Screening for lung cancer Alpha galactosidase deficiency C. difficile colitis Atherosclerosis of coronary artery Medical marijuana use Diverticulosis seen in colonoscopy in 2023 GERD (gastroesophageal reflux disease) Chronic pancreatitis Urethral stricture COPD (chronic obstructive pulmonary disease) Essential (primary) hypertension Seizure disorder Mixed hyperlipidemia Osteoarthritis rt knee, cervical and Lumbar spine Heart attack Surgical History History of esophagogastroduodenoscopy (EGD) 2021. Showing esophagitis, gastritis, and duodenitis with + H.pylori biopsies History of back surgery Status post right knee replacement Status post right knee replacement Hx of reconstruction of anterior cruciate ligament tear H/O neck surgery H/O left knee surgery History of appendectomy History of cholecystectomy H/O right knee surgery H/O chest tube placement H/O removal of testicle Stented coronary artery Family History Brother Parkinson disease Cancer Diabetes Stroke Family/Other Cancer Chronic kidney disease (CKD) Suicide Grandmother CAD (coronary artery disease) Cancer Lung disease Grandfather Dementia Mother Lung disease Father Suicide Denies family history of Clotting disorder Anesthesia complication Bleeding disorder Social History Smoking and tobacco/nicotine status: current every day tobacco/nicotine user cigarettes [ Other cigarette details: 1cig, 40PY] Quit status (tobacco/nicotine): has tried quititng Alcohol intake: never Substance/Drug Use: current Substance/Drug use frequency: daily Other substance/drug use details: medical card Lives independently: Yes Household members: significant other service: No Current occupational status: disabled Current occupational exposures/hazards: Yes Do you think of yourself as: Straight/Heterosexual Current gender identity: Male Physical Exam Const: COMMON NORMALS: patient oriented x3 HENMT: COMMON NORMALS: normocephalic and atraumatic HEAD & SCALP: normocephalic and atraumatic Neck/C-Spine: COMMON NORMALS: full ROM and supple Chest: COMMONS NORMALS: normal inspection of the chest Resp: COMMON NORMALS: normal respiratory effort, No retractions, No use of accessory muscles and clear to auscultation bilaterally AUSCULTATION: clear to auscultation bilaterally Cardio: COMMON NORMALS: regular rate, regular rhythm and No murmurs present (Cardio) RATE: regular rate RHYTHM: regular rhythm GI: COMMON NORMALS: Normal to inspection, nondistended, normoactive bowel sounds present, Soft to palpation, non-tender and no masses PALPATION: Yes Soft to palpation Extremity: COMMON NORMALS: normal to inspection and full ROM Neuro: COMMON NORMALS: patient oriented x3, moves all extremities and no focal motor deficits Psych: COMMON NORMALS: mental status grossly normal, Normal thought process present and cooperative THOUGHT PROCESS: Normal thought process present Skin: COMMON NORMALS: no rashes or lesions noted and no wounds GENERAL SKIN EXAM: no rashes or lesions noted Course Vital Signs: Vital signs: Vital Signs Temperature 98.4 F 09/04/24 15:15 Pulse Rate 101 H 09/04/24 15:15 Respiratory Rate 18 09/04/24 15:15 Blood Pressure 90/60 09/04/24 15:15 Pulse Oximetry 99 09/04/24 15:15 Oxygen Delivery Me thod Room Air 09/04/24 15:15 MDM - Nausea/Vomiting/Diarrhea Medical Decision Making Patient presents with vomiting he has been well-appearing here has had chronic vomiting slight hypokalemia will replace here we will prescribe nausea medicine he is to follow-up with his PCP return if worsening he understands agrees to plan. Medical Records I reviewed the patient's medical records. Lab Data I reviewed the patient's lab results. 09/04/24 16:42 09/04/24 16:42 Laboratory Results WBC 9.66 10^3/uL (3.29-11.43) 09/04/24 16:42 RBC 3.84 10^6/uL (3.85-5.65) L 09/04/24 16:42 Hgb 12.70 g/dL (11.27-16.99) 09/04/24 16:42 Hct 36.9 % (37-53) L 09/04/24 16:42 MCV 96.1 fl (82-101) 09/04/24 16:42 MCH 33.1 pg (27-33) H 09/04/24 16:42 MCHC 34.4 g/dL (30-55) 09/04/24 16:42 RDW 12.4 % (12.1-15.1) 09/04/24 16:42 Plt Count 278 10^3/cmm (157-399) 09/04/24 16:42 MPV 8.7 fL (7.4-10.4) 09/04/24 16:42 Neut % (Auto) 60.8 % 09/04/24 16:42 Lymph % (Auto) 30.7 % 09/04/24 16:42 [place] % (Auto) 7.1 % 09/04/24 16:42 Eos % (Auto) 0.7 % 09/04/24 16:42 Baso % (Auto) 0.4 % 09/04/24 16:42 Neut # (Auto) 5.86 10^3/uL (1.8-7.7) 09/04/24 16:42 Lymph # (Auto) 3.0 10^3/uL (0.8-4.8) 09/04/24 16:42 [place] # (Auto) 0.7 10^3/uL (0.2-0.9) 09/04/24 16:42 Eos # (Auto) 0.1 10^3/uL (0.0-0.8) 09/04/24 16:42 Baso # (Auto) 0.0 10^3/uL (0.0-0.1) 09/04/24 16: Nucleated RBC % (auto) 0 % 09/04/24 16: Nucleated RBCs # 0.0 /100WBC 09/04/24 16:42 Sodium 132 mmol/L (136-145) L 09/04/24 16:42 Potassium 2.9 mmol/L (3.5-5.1) L 09/04/24 16:42 Chloride 97 mmol/L (98-107) L 09/04/24 16:42 Carbon Dioxide 22 mmol/L (22-29) 09/04/24 16:42 Anion Gap 15.9 (5-19) 09/04/24 16:42 BUN 9 mg/dL (6-20) 09/04/24 16:42 Creatinine 0.7 mg/dL (0.7-1.2) 09/04/24 16:42 GFR Calculation 118.4 mL/min (90-130) 09/04/24 16:42 Glucose 98 mg/dL (65-115) 09/04/24 16:42 Calculated Osmolality 273 mOsm/kg (285-295) L 09/04/24 16:42 Calcium 9.1 mg/dL (8.5-10.5) 09/04/24 16:42 Total Bilirubin 0.9 mg/dL (0.15-1.2) 09/04/24 16:42 AST 13 U/L (0-40) 09/04/24 16:42 ALT 12 U/L (0-41) 09/04/24 16:42 Alkaline Phosphatase 75 U/L (40-130) 09/04/24 16:42 Total Protein 6.4 g/dL (6.6-8.7) L 09/04/24 16:42 Albumin 4.0 g/dL (3.5-5.2) 09/04/24 16:42 Globulin 2.4 g/dL (1.3-4.6) 09/04/24 16:42 Lipase 25 U/L (13-60) 09/04/24 16:42 All radiology interpretation(s) finalized by discharge Discharge Plan Discharge Patient Disposition: Home Clinical Impression: Vomiting, Hypokalemia Condition: Stable Prescriptions: New ondansetron 4 mg tablet,disintegrating 4 mg PO Q6H PRN (Reason: nausea and vomiting) Qty: 14 0RF potassium chloride [K-Tab] 20 mEq tablet extended release 20 meq PO BID Qty: 10 0RF No Action albuterol sulfate 2.5 mg /3 mL (0.083 %) solution for nebulization 2.5 mg inhalation BID PRN (Reason: Shortness Of Breath) nitroglycerin 0.4 mg tablet, sublingual 0.4 mg sublingual Q5M PRN (Reason: chest pain) 30 Days Qty: 30 3RF Rx Instructions: until response; do not exceed 3 doses per episode buspirone 30 mg tablet 30 mg PO BID Qty: 60 2RF isosorbide mononitrate 30 mg tablet extended release 24 hr 30 mg PO DAILY Qty: 30 5RF fluoxetine 20 mg tablet 20 mg PO DAILY Qty: 60 1RF fluticasone propion-salmeterol [Advair Diskus] 100-50 mcg/dose blister with device 1 inh INHALATION BID Qty: 60 0RF (DME) Bone Growth Stimulator See Rx Instructions .Route .MEDSUPPLY Qty: 1 0RF Rx Instructions: As directed Klor-Con M20 20 mEq tablet,ER particles/crystals 20 meq PO BID 10 Days Qty: 20 0RF budesonide 0.5 mg/2 mL suspension for nebulization 0.5 mg inhalation BID PRN (Reason: copd) Qty: 60 0RF clopidogrel 75 mg tablet 75 mg PO DAILY Qty: 90 0RF quetiapine [Seroquel] 50 mg tablet 50 mg PO BEDTIME Qty: 90 0RF pantoprazole 40 mg tablet,delayed release (DR/EC) 40 mg PO DAILY 30 Days Qty: 30 1RF clonazepam 2 mg tablet 2 mg PO BID PRN (Reason: Anxiety attacks) 30 Days Qty: 60 2RF hydrocodone-acetaminophen 5-325 mg tablet 1 tab PO Q12H PRN (Reason: pain) 28 Days Qty: 56 0RF atorvastatin 80 mg tablet See Rx Instructions .ROUTE .COMPLEX Qty: 90 3RF Dose Instruction: TAKE 1 TABLET BY MOUTH EVERY MORNING Rx Instructions: TAKE 1 TABLET BY MOUTH EVERY MORNING tamsulosin 0.4 mg capsule 0.4 mg PO QAM Qty: 90 0RF zonisamide 100 mg capsule 200 mg PO BID Qty: 180 0RF ranolazine 500 mg tablet extended release 12 hr 500 mg PO BID Qty: 60 3RF albuterol sulfate [Ventolin HFA] 90 mcg/actuation HFA aerosol inhaler 2 puff INHALATION Q4H PRN (Reason: Shortness Of Breath) nicotine 21 mg/24 hr patch 24 hour See Rx Instructions .ROUTE .COMPLEX Rx Instructions: Apply and change one patch daily for 6 weeks. ondansetron HCl 4 mg tablet 4 mg PO Q8H PRN (Reason: Nausea) aspirin 81 mg tablet,delayed release (DR/EC) 81 mg PO QAM prednisone 20 mg tablet See Rx Instructions .ROUTE .COMPLEX Qty: 37 0RF Rx Instructions: 40 mg daily x 1 week 30 mg daily x 1 week 20 mg daily x 1 week 10 mg daily x 1 week 5 mg daily x 1 week then stop ciprofloxacin HCl [Cipro] 500 mg tablet 500 mg PO BID Qty: 10 0RF Discharge Orders: Discharge ED (Routine); Ordered 09/04/24 Ordered By: Mercedes Gaines Referrals: Jarrell Espino MD [Primary Care Provider] - 4-7 days Discharge Diet: Advance as tolerated Discharge Activity: Resume usual activity Patient Instructions: Hypokalemia (ED), Acute Nausea and Vomiting (ED) Print Language: Ukrainian Coding Level of Care Code 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
[2024-09-04 18:00] VITALS: BP 119/72; PULSE 69; O2SAT 100
[2024-09-04 18:02] LABS: Alanine Aminotransferase 12 U/L (0-41); Alkaline Phosphatase 75 U/L (40-130); Anion Gap 15.9 (5-19); Aspartate Amino Transferase 13 U/L (0-40); Blood Urea Nitrogen 9 mg/dL (6-20); Calcium 9.1 mg/dL (8.5-10.5); Carbon Dioxide 22 mmol/L (22-29); Chloride 97 mmol/L (98-107); Creatinine Clr Calc Pharmacy 115.9414; Globulin 2.4 g/dL (1.3-4.6); Glomerular Filtration Rate 118.4 mL/min (90-130); Glucose 98 mg/dL (65-115); Lipase 25 U/L (13-60); Osmolality Calculated 273 mOsm/kg (285-295); Sodium 132 mmol/L (136-145); Total Bilirubin 0.9 mg/dL (0.15-1.2); Total Protein 6.4 g/dL (6.6-8.7)
[2024-09-04 18:07] LABS: Potassium 2.9 mmol/L (3.5-5.1)
[2024-09-04 18:30] VITALS: BP 112/75; PULSE 76; O2SAT 100
[2024-09-04] MEDS: potassium chloride ER 20 mEq Tablet 40 MEQ PO (18:39)
[2024-09-04] MEDS: HYDROMORPHONE HCL 0.5 MG/0.5 ML INJ IVP (18:40)
[2024-09-04 18:53] VITALS: BP 117/78; PULSE 72; O2SAT 100
== END 2024-09-04 18:55 | disposition home or self-care (01) ==
PROVIDERS: Emergency Provider Emergency Medicine; PCP Family Medicine
DX: R11.10 Vomiting, unspecified (principal); E87.6 Hypokalemia; Z79.02 Long term (current) use of antithrombotics/antiplatelets; Z79.82 Long term (current) use of aspirin; F17.210 Nicotine dependence, cigarettes, uncomplicated; J44.9 Chronic obstructive pulmonary disease, unspecified; I25.10 Atherosclerotic heart disease of native coronary artery without angina pectoris; I10 Essential (primary) hypertension; I50.20 Unspecified systolic (congestive) heart failure
CPT/HCPCS: 36415; 80053; 83690; 85025; 96361; 96374; 96375; 99284; J1171; J2405; J7030

== ENCOUNTER → 2024-09-11 13:53 | Outpatient (BNVA) | payer MEDICAID, SELFPAY | PROVIDERS: PCP Family Medicine; Visit Provider Student in an Organized Health Care Education/Training Program | DX: K40.90 Unilateral inguinal hernia, without obstruction or gangrene, not specified as recurrent (principal) | CPT/HCPCS: 99204 ==

== ENCOUNTER 2024-09-16 06:57 | Inpatient (IN) | payer MEDICAID, SELFPAY ==
[2024-09-16] VITALS (18 sets, daily range): BP systolic 98–162; BP diastolic 53–92; PULSE 58–89; RESP 16–20; TEMP 36.3–36.5; O2SAT 95–99; BMI 25.8
[2024-09-16 08:17] LABS: Basophils % 0.4 %; Eosinophils # 0.2 10^3/uL (0.0-0.8); Eosinophils % 1.5 %; Hematocrit 45.1 % (37-53); Lymphocytes % 19.9 %; Mean Corpuscular Hemoglobin 32.5 pg (27-33); Mean Corpuscular Volume 98.5 fl (82-101); Mean Platelet Volume 8.5 fL (7.4-10.4); Monocytes # 0.9 10^3/uL (0.2-0.9); Monocytes % 8.7 %; Neutrophils # 7.04 10^3/uL (1.8-7.7); Neutrophils % 69.2 %; Nucleated Red Blood Cells % 0 %; Platelet Count 301 10^3/cmm (157-399); Red Blood Count 4.58 10^6/uL (3.85-5.65); Red Cell Distribution Width 12.6 % (12.1-15.1); White Blood Count 10.16 10^3/uL (3.29-11.43)
[2024-09-16 08:37] LABS: Alanine Aminotransferase 7 U/L (0-41); Albumin Level 3.9 g/dL (3.5-5.2); Alkaline Phosphatase 81 U/L (40-130); Anion Gap 22.2 (5-19); Aspartate Amino Transferase 9 U/L (0-40); Blood Urea Nitrogen 15 mg/dL (6-20); Calcium 9.4 mg/dL (8.5-10.5); Carbon Dioxide 15 mmol/L (22-29); Chloride 98 mmol/L (98-107); Creatinine Clr Calc Pharmacy 91.4086; Globulin 3.3 g/dL (1.3-4.6); Glomerular Filtration Rate 88.6 mL/min (90-130); Glucose 114 mg/dL (65-115); Lipase 14 U/L (13-60); Osmolality Calculated 276 mOsm/kg (285-295); Potassium 3.2 mmol/L (3.5-5.1); Sodium 132 mmol/L (136-145); Total Protein 7.2 g/dL (6.6-8.7)
--- NOTE | 2024-09-16 09:13 | W.ED.ABDPA2 ---
HPI - Abdominal Pain General: Chief Complaint: Abdominal Pain Stated Complaint: lt stomach pain Time Seen by Provider: 09/16/24 06:59 History of Present Illness: 53-year-old male who presents to the emergency room with complaints of left lower quadrant abdominal pain. Patient was recently hospitalized here for acute kidney injury with nausea and diarrhea that been going on for 4 days prior. He began improving after steroids were added for irritable bowel disease. He was in the hospital here for 3 days. He was discharged home on prednisone and ciprofloxacin but he tells me he never took the medication after getting home he had more nausea and vomiting he ended up going to [facility] in [place] there he received IV fluids and was discharged from the emergency room he feels like he is continually worsened since that time to presenting here. Reports low-grade fever. He has had multiple loose stools per day up to 10 yesterday denies any medic easy melena hematemesis or coffee-ground emesis. Associated Symptoms: Reports diarrhea and nausea; Denies chills, dysuria and fever(s) Related Data Home Medications ?Medication ?Instructions ?Recorded ?Confirmed albuterol sulfate 90 mcg/actuation 2 puff inhalation Q4H PRN 08/24/24 09/16/24 aerosol inhaler (Ventolin HFA) Shortness Of Breath aspirin 81 mg tablet,delayed 81 mg PO QAM 08/24/24 09/16/24 release nicotine 21 mg/24 hr daily See Rx Instructions .Route .COMPLEX 08/24/24 09/16/24 transdermal patch atorvastatin 80 mg tablet 80 mg PO QAM 09/16/24 09/16/24 Previous Rx's ?Medication ?Instructions ?Recorded Bone Growth Stimulator #1 ea 01/04/24 fluticasone 100 mcg-salmeterol 50 1 inh inhalation BID #60 ea 02/05/24 mcg/dose blistr powdr for inhalation (Advair Diskus) nitroglycerin 0.4 mg sublingual 0.4 mg sublingual Q5M PRN chest 02/06/24 tablet pain 30 days #30 tabs isosorbide mononitrate 30 mg 30 mg PO DAILY #30 tabs 06/24/24 tablet,extended release 24 hr buspirone 30 mg tablet 30 mg PO BID #60 tabs 07/09/24 ranolazine 500 mg tablet,extended 500 mg PO BID #60 tabs 07/15/24 release,12 hr budesonide 0.5 mg/2 mL suspension 0.5 mg (2 mL) inhalation BID PRN 07/28/24 for nebulization copd #60 mL clopidogrel 75 mg tablet 75 mg PO DAILY #90 tabs 07/28/24 quetiapine 50 mg tablet (Seroquel) 50 mg PO BEDTIME #90 tabs 07/28/24 fluoxetine 20 mg tablet 20 mg PO DAILY #60 tabs 08/18/24 clonazepam 2 mg tablet 2 mg PO BID PRN Anxiety attacks 30 08/25/24 days #60 tabs hydrocodone 5 mg-acetaminophen 325 1 tab PO Q12H PRN pain 28 days #56 08/26/24 mg tablet tabs prednisone 20 mg tablet See Rx Instructions .Route 08/27/24 .COMPLEX #37 tabs tamsulosin 0.4 mg capsule 0.4 mg PO QAM #90 caps 09/02/24 zonisamide 100 mg capsule 200 mg (2 x 100 mg) PO BID #180 09/03/24 caps ondansetron 4 mg disintegrating 4 mg PO Q6H PRN nausea and 09/04/24 tablet vomiting #14 tabs pantoprazole 40 mg tablet,delayed 40 mg PO BID 30 days #60 tabs 09/05/24 release scopolamine base 1 mg over 3 days 1 patch transdermal Q3D PRN motion 09/05/24 transdermal patch sickness #10 ea Allergies Allergy/AdvReac Type Severity Reaction Status Date / Time meperidine (From Demerol) Allergy Severe ALGY-Hives Verified 09/11/24 14:05 Alpha-Gal Allergy upset GI Verified 09/11/24 14:05 (Whgdtikht-Qojjs-1,3-Gala (Axoytdwyv-Xmnei-1,3-Galactose (Alph) gabapentin AdvReac Severe ADR-Seizure Verified 09/11/24 14:05 morphine AdvReac Severe ALGY-Hives Verified 09/11/24 14:05 tramadol AdvReac Severe ADR-Seizure Verified 09/11/24 14:05 Review of Systems Const: Denies: fever(s) or chills Card: Denies: chest pain Resp: Denies: dyspnea GI: Reports: abdominal pain, nausea and diarrhea : Denies: dysuria, urinary frequency or urinary urgency Musc: Denies: neck pain or back pain Skin/Breast: Denies: rash PFSH ED PFSH: Medical History Moderate major depression Generalized anxiety disorder Alpha-gal syndrome Heart failure with mildly reduced ejection fraction (HFmrEF) Depression Chronic abdominal pain Hyponatremia Marijuana use, continuous H. pylori duodenitis Elevated glucose Anxiety and depression Screening for lung cancer Alpha galactosidase deficiency C. difficile colitis Atherosclerosis of coronary artery Medical marijuana use Diverticulosis seen in colonoscopy in 2023 GERD (gastroesophageal reflux disease) Chronic pancreatitis Urethral stricture COPD (chronic obstructive pulmonary disease) Essential (primary) hypertension Seizure disorder Mixed hyperlipidemia Osteoarthritis rt knee, cervical and Lumbar spine Heart attack Surgical History History of esophagogastroduodenoscopy (EGD) 2021. Showing esophagitis, gastritis, and duodenitis with + H.pylori biopsies History of back surgery Status post right knee replacement Status post right knee replacement Hx of reconstruction of anterior cruciate ligament tear H/O neck surgery H/O left knee surgery History of appendectomy History of cholecystectomy H/O right knee surgery H/O chest tube placement H/O removal of testicle Stented coronary artery Family History Brother Parkinson disease Cancer Diabetes Stroke Family/Other Cancer Chronic kidney disease (CKD) Suicide Grandmother CAD (coronary artery disease) Cancer Lung disease Grandfather Dementia Mother Lung disease Father Suicide Other Colitis Denies family history of Clotting disorder Anesthesia complication Bleeding disorder Social History Smoking and tobacco/nicotine status: current every day tobacco/nicotine user cigarettes [ Other cigarette details: 1cig, 40PY] Quit status (tobacco/nicotine): has tried quititng Alcohol intake: never Substance/Drug Use: current Substance/Drug use frequency: daily Other substance/drug use details: medical card Lives independently: Yes Household members: significant other service: No Current occupational status: disabled Current occupational exposures/hazards: Yes Do you think of yourself as: Straight/Heterosexual Current gender identity: Male Physical Exam Const: GENERAL APPEARANCE: cooperative ORIENTATION/CONSCIOUSNESS: Yes awake, Yes oriented to person, Yes oriented to place and Yes oriented to time HENMT: COMMON NORMALS: normocephalic, atraumatic and hearing grossly normal bilaterally HEAD & SCALP: normocephalic and atraumatic Resp: COMMON NORMALS: normal respiratory effort, No retractions, No use of accessory muscles and clear to auscultation bilaterally AUSCULTATION: clear to auscultation bilaterally Cardio: COMMON NORMALS: regular rate, regular rhythm and No murmurs present (Cardio) RATE: regular rate RHYTHM: regular rhythm GI: AUSCULTATION: Yes normoactive bowel sounds PALPATION: Yes Tenderness to palpation present (GI) Details: LLQ and No Guarding due to palpation present (GI) Extremity: COMMON NORMALS: normal to inspection, capillary refill normal, no clubbing, cyanosis or edema, no calf tenderness and no pedal edema Neuro: SENSORIUM/ORIENTATION: Yes oriented to person, Yes oriented to place and Yes oriented to time Skin: COMMON NORMALS: no rashes or lesions noted GENERAL SKIN EXAM: no rashes or lesions noted Course Vital Signs: Vital signs: Vital Signs Temperature 97.4 F L 09/16/24 07:06 Pulse Rate 64 09/16/24 16:30 Respiratory Rate 20 H 09/16/24 15:39 Blood Pressure 105/77 09/16/24 16:30 Pulse Oximetry 97 09/16/24 16:30 Oxygen Delivery Me thod Room Air 09/16/24 15:30 MDM - Abdominal Pain Medical Decision Making Colitis infectious versus inflammatory. Patient resolved previously with steroid treatment but did not follow-up with medications he was given at discharge. Discussed with hospitalist orders written. Will consult surgery as well. Medical Records I reviewed the patient's medical records. Lab Data I reviewed the patient's lab results. 09/16/24 08:10 09/16/24 08:10 Labs/Radiology: Radiology Impressions Abdomen/Pelvis CT 09/16/24 09:18 IMPRESSION: 1. Long segment, moderate circumferential colonic submucosal edema with narrowing of the lumen beginning just distal to the splenic flexure and extending through the sigmoid colon. There is mild pericolonic edema but no abscess or perforation. There are a few associated diverticula. Pattern is most consistent with that of infectious colitis or ischemic disease. 2. Increasing fluid in the more proximal colon. 3. No free air. No ascites. 4. Moderate atherosclerotic plaque aorta. SMA atherosclerotic disease but no thrombus identified. 5. Prior cholecystectomy and appendectomy. Laboratory Results WBC 10.16 10^3/uL (3.29-11.43) 09/16/24 08:10 RBC 4.58 10^6/uL (3.85-5.65) 09/16/24 08:10 Hgb 14.90 g/dL (11.27-16.99) 09/16/24 08:10 Hct 45.1 % (37-53) 09/16/24 08:10 MCV 98.5 fl (82-101) 09/16/24 08:10 MCH 32.5 pg (27-33) 09/16/24 08:10 MCHC 33.0 g/dL (30-55) 09/16/24 08:10 RDW 12.6 % (12.1-15.1) 09/16/24 08:10 Plt Count 301 10^3/cmm (157-399) 09/16/24 08:10 MPV 8.5 fL (7.4-10.4) 09/16/24 08:10 Neut % (Auto) 69.2 % 09/16/24 08:10 Lymph % (Auto) 19.9 % 09/16/24 08:10 [place] % (Auto) 8.7 % 09/16/24 08:10 Eos % (Auto) 1.5 % 09/16/24 08:10 Baso % (Auto) 0.4 % 09/16/24 08:10 Neut # (Auto) 7.04 10^3/uL (1.8-7.7) 09/16/24 08:10 Lymph # (Auto) 2.0 10^3/uL (0.8-4.8) 09/16/24 08:10 [place] # (Auto) 0.9 10^3/uL (0.2-0.9) 09/16/24 08:10 Eos # (Auto) 0.2 10^3/uL (0.0-0.8) 09/16/24 08:10 Baso # (Auto) 0.0 10^3/uL (0.0-0.1) 09/16/24 08:10 Nucleated RBC % (auto) 0 % 09/16/24 08:10 Nucleated RBCs # 0.0 /100WBC 09/16/24 08:10 ESR 21 mm/hr (0-10) H 09/16/24 08:10 Sodium 132 mmol/L (136-145) L 09/16/24 08:10 Potassium 3.2 mmol/L (3.5-5.1) L 09/16/24 08:10 Chloride 98 mmol/L (98-107) 09/16/24 08:10 Carbon Dioxide 15 mmol/L (22-29) L 09/16/24 08:10 Anion Gap 22.2 (5-19) H 09/16/24 08:10 BUN 15 mg/dL (6-20) 09/16/24 08:10 Creatinine 0.9 mg/dL (0.7-1.2) 09/16/24 08:10 GFR Calculation 88.6 mL/min (90-130) L 09/16/24 08:10 Glucose 114 mg/dL (65-115) 09/16/24 08:10 Calculated Osmolality 276 mOsm/kg (285-295) L 09/16/24 08:10 Lactic Acid 1.2 mmol/L (0.5-2.2) 09/16/24 11:59 Calcium 9.4 mg/dL (8.5-10.5) 09/16/24 08:10 Total Bilirubin 1.0 mg/dL (0.15-1.2) 09/16/24 08:10 AST 9 U/L (0-40) 09/16/24 08:10 ALT 7 U/L (0-41) 09/16/24 08:10 Alkaline Phosphatase 81 U/L (40-130) 09/16/24 08:10 C-Reactive Protein 61.8 mg/L (0.0-4.9) H 09/16/24 08:10 Total Protein 7.2 g/dL (6.6-8.7) 09/16/24 08:10 Albumin 3.9 g/dL (3.5-5.2) 09/16/24 08:10 Globulin 3.3 g/dL (1.3-4.6) 09/16/24 08:10 Lipase 14 U/L (13-60) 09/16/24 08:10 Urine Color [place] (Yellow) A 09/16/24 09:05 Urine Appearance Clear (CLEAR) 09/16/24 09:05 Urine pH 5.5 (5-7) 09/16/24 09:05 Ur Specific [place] 1.034 (1.005-1.030) H 09/16/24 09:05 Urine Protein 1+ (Negative) A 09/16/24 09:05 Urine Glucose (UA) Negative (Normal) 09/16/24 09:05 Urine Ketones Trace (Negative) 09/16/24 09:05 Urine Blood Trace (Negative) A 09/16/24 09:05 Urine Nitrate Negative (Negative) 09/16/24 09:05 Urine Bilirubin 1+ (Negative) H 09/16/24 09:05 Urine Urobilinogen 1.0 mg/dL (Negative) 09/16/24 09:05 Ur Leukocyte Esterase 1+ (Negative) A 09/16/24 09:05 Urine RBC 6-10 /hpf (0-2) 09/16/24 09:05 Urine WBC 0-5 /hpf (0-5) 09/16/24 09:05 Ur Squamous Epith Cells 6-10 /hpf (0-5) 09/16/24 09:05 Amorphous Sediment Not Reportable 09/16/24 09:05 Urine Bacteria None seen /hpf (NONE) 09/16/24 09:05 Hyaline Casts 1.65 /lpf 09/16/24 09:05 All radiology interpretation(s) finalized by discharge Discharge Plan Discharge Patient Disposition: Admitted As Inpatient Admit Provider: Delgado Morris Clinical Impression: Colitis, Alpha galactosidase deficiency Condition: Stable Coding Level of Care Code ED [employer]
--- NOTE | 2024-09-16 09:18 | CT_ITS ---
WS: [id number] CT ABDOMEN AND PELVIS WITH CONTRAST HISTORY: abd pain, LEFT lower quadrant pain with nausea for 2 days. TECHNIQUE: Imaging performed of the abdomen and pelvis with IV contrast. Single phase imaging of the abdomen. Coronal and sagittal reformats are submitted. All CT scans at [facility] use at least one of these dose optimization techniques: automated exposure control; mA and/or kV adjustment per patient size (includes targeted exams where dose is matched to clinical indication); or iterative reconstruction. IV CONTRAST: Omnipaque 350; 100 mL IV. Oral contrast: No DLP: 404.67 mGy.cm COMPARISON: 08/24/2024 Lower thorax: Mild pleural thickening along the effusion at the LEFT lung base. LEFT lower lobe granuloma. Heart is normal size. No hiatal hernia. Liver/biliary system: Normal size liver. Focal fatty sparing along the falciform ligament. Normal portal vein. Gallbladder: Prior cholecystectomy. Common bile duct is mildly prominent on the basis of the cholecystectomy. No intrahepatic duct dilatation. Pancreas: Normal size pancreas and pancreatic duct. No adjacent inflammation. Spleen: Normal size spleen. No mass or infarct. Adrenal glands: Normal. Right kidney: Normal size kidney with no obstruction. Several cysts. There are additional hypodensities which are too small to characterize. The largest cyst measures 3.3 x 3.2 cm. Left kidney: Tiny cortical cysts. Some of these are too small to characterize. No renal obstruction. Aorta: Mild atherosclerosis with no aneurysm. Atherosclerotic plaque SMA. Decreased enhancement in the mid SMA but there is no occlusion. Lymphadenopathy: None. Free fluid: None. GI tract: Stomach is not distended. No small bowel obstruction. Increasing fluid in the ascending and transverse colon. Beginning just distal to the splenic fracture is circumferential colonic wall thickening with narrowing of the lumen. This is along segment of submucosal edema extending through the sigmoid. There are associated numerous diverticula. There is mild pericolonic stranding but no free air or abscess. Prior appendectomy. Abdominal wall: Unremarkable abdominal wall. No hernia. Pelvis: No free fluid or adenopathy. Nondistended urinary bladder. Central prostate gland calcifications. Bones: Posterior lumbar fusion from L4-S1 with interbody spacers at L4-5 and L5-S1. CT/CT abdomen pelvis w con* [id number] IMPRESSION: 1. Long segment, moderate circumferential colonic submucosal edema with narrow ing of the lumen beginning just distal to the splenic flexure and extending thr ough the sigmoid colon. There is mild pericolonic edema but no abscess or perfo ration. There are a few associated diverticula. Pattern is most consistent with that of infectious colitis or ischemic disease. 2. Increasing fluid in the more proximal colon. 3. No free air. No ascites. 4. Moderate atherosclerotic plaque aorta. SMA atherosclerotic disease but no t hrombus identified. 5. Prior cholecystectomy and appendectomy.
[2024-09-16 09:30] LABS: Bilirubin Urine 1+ (Negative); Blood Urine Trace (Negative); Glucose Urine UA Negative (Normal); Ketones Urine Trace (Negative); Leukocyte Esterase Urine 1+ (Negative); Nitrate Urine Negative (Negative); Protein Urine 1+ (Negative); Urine Appearance Clear (CLEAR); pH Urine 5.5 (5-7)
[2024-09-16] MEDS: morphine 4 mg/mL SDV 1 mL IVP ×4 (09:31→20:47)
[2024-09-16] MEDS: diphenhydrAMINE 50 mg/mL SDV 1mL IVP (09:31)
[2024-09-16 09:33] LABS: Add Urine Microscopic? YES; Bacteria Urine None Seen /hpf; Hyaline Casts Urine 1.65 /lpf; WBC Urine 0-5 /hpf (0-5)
[2024-09-16] MEDS: iohexol 350 mg/mL 500 mL Btl (per mL) IV (09:38)
[2024-09-16 09:42] LABS: Urine Color Orange (Yellow)
[2024-09-16 09:43] LABS: Specific Gravity, Urine 1.034 (1.005-1.030)
[2024-09-16 12:20] LABS: Lactic Sepsis W/Reflex 1.2 mmol/L (0.5-2.2)
--- NOTE | 2024-09-16 12:45 | PM.CONSULT ---
Providers/Reason For Consult Consulting Physician/Specialty*: General Surgery Reason for Consult*: Colitis Attending Physician: Delgado Morris Primary Care Provider: Jarrell Espino MD History of Present Illness History of Present Illness Josue Cheng is a 53 year old male Who is known to me for history of enteritis and GI issues for which he was hospitalized about a month ago. Patient has been having flare ups of abdominal pain nausea vomiting diarrhea that last about 1 to 2 weeks and then subside. Has been recently diagnosed with alpha gal. Had a colonoscopy at the end of last year and according to him he received the results recently saying that he had diverticulosis and some hemorrhoids but otherwise it was unremarkable. During last hospital stay there was extensive discussion regarding the need for evaluation by GI service as patient clinical presentation is concerning for the possibility of inflammatory bowel disease. He eventually improved with steroid treatment and therefore no additional evaluation was necessary. Today on presentation his imaging shows evidence of severe colitis of the descending colon with submucosal edema and pericolonic stranding no evidence of perforation other changes.According to the patient on Sunday he started to have stabbing abdominal pain associated with nausea vomit and diarrhea, has not Been able to eat since then Review of Systems General: Reports: 10 or more systems reviewed and unremarkable except in HPI and below Medications/Allergies Home Medications ?Medication ?Instructions ?Recorded ?Confirmed ?Last Taken ?Type Bone Growth Stimulator #1 ea 01/04/24 09/16/24 07/15/24 05:15 Rx fluticasone 100 mcg-salmeterol 50 1 inh inhalation BID #60 ea 02/05/24 09/16/24 08/21/24 Rx mcg/dose blistr powdr for inhalation (Advair Diskus) nitroglycerin 0.4 mg sublingual 0.4 mg sublingual Q5M PRN chest 02/06/24 09/16/24 Unknown Rx tablet pain 30 days #30 tabs isosorbide mononitrate 30 mg 30 mg PO DAILY #30 tabs 06/24/24 09/16/24 08/21/24 Rx tablet,extended release 24 hr buspirone 30 mg tablet 30 mg PO BID #60 tabs 07/09/24 09/16/24 08/21/24 Rx ranolazine 500 mg tablet,extended 500 mg PO BID #60 tabs 07/15/24 09/16/2408/21/25 Rx release,12 hr budesonide 0.5 mg/2 mL suspension 0.5 mg (2 mL) inhalation BID PRN 07/28/24 09/16/24 Unknown Rx for nebulization copd #60 mL clopidogrel 75 mg tablet 75 mg PO DAILY #90 tabs 07/28/24 09/16/24 08/21/24 Rx quetiapine 50 mg tablet (Seroquel) 50 mg PO BEDTIME #90 tabs 07/28/24 09/16/24 08/21/24 Rx fluoxetine 20 mg tablet 20 mg PO DAILY #60 tabs 08/18/24 09/16/24 08/21/24 Rx albuterol sulfate 90 mcg/actuation 2 puff inhalation Q4H PRN 08/24/24 09/16/24 Unknown History aerosol inhaler (Ventolin HFA) Shortness Of Breath aspirin 81 mg tablet,delayed 81 mg PO QAM 08/24/24 09/16/24 08/21/24 History release nicotine 21 mg/24 hr daily See Rx Instructions .Route .COMPLEX 08/24/24 09/16/24 08/24/24 History transdermal patch clonazepam 2 mg tablet 2 mg PO BID PRN Anxiety attacks 30 08/25/24 09/16/24 Unknown Rx days #60 tabs hydrocodone 5 mg-acetaminophen 325 1 tab PO Q12H PRN pain 28 days #56 08/26/24 09/16/24 Unknown Rx mg tablet tabs prednisone 20 mg tablet See Rx Instructions .Route 08/27/24 09/16/24 Unknown Rx .COMPLEX #37 tabs tamsulosin 0.4 mg capsule 0.4 mg PO QAM #90 caps 09/02/24 09/16/24 Unknown Rx zonisamide 100 mg capsule 200 mg (2 x 100 mg) PO BID #180 09/03/24 09/16/24 Unknown Rx caps ondansetron 4 mg disintegrating 4 mg PO Q6H PRN nausea and 09/04/24 09/16/24 Unknown Rx tablet vomiting #14 tabs pantoprazole 40 mg tablet,delayed 40 mg PO BID 30 days #60 tabs 09/05/24 09/16/24 Unknown Rx release scopolamine base 1 mg over 3 days 1 patch transdermal Q3D PRN motion 09/05/24 09/16/24 Unknown Rx transdermal patch sickness #10 ea atorvastatin 80 mg tablet 80 mg PO QAM 09/16/24 09/16/24 Unknown History Allergies Allergy/AdvReac Type Severity Reaction Status Date / Time meperidine (From Demerol) Allergy Severe ALGY-Hives Verified 09/11/24 14:05 Alpha-Gal Allergy upset GI Verified 09/11/24 14:05 (Uvcfatzjq-Poyqt-3,3-Gala (Sfxqhacue-Cjyhf-1,3-Galactose (Alph) gabapentin AdvReac Severe ADR-Seizure Verified 09/11/24 14:05 morphine AdvReac Severe ALGY-Hives Verified 09/11/24 14:05 tramadol AdvReac Severe ADR-Seizure Verified 09/11/24 14:05 PFSH Acute PFSH: Medical History Moderate major depression Generalized anxiety disorder Alpha-gal syndrome Heart failure with mildly reduced ejection fraction (HFmrEF) Depression Chronic abdominal pain Hyponatremia Marijuana use, continuous H. pylori duodenitis Elevated glucose Anxiety and depression Screening for lung cancer Alpha galactosidase deficiency C. difficile colitis Atherosclerosis of coronary artery Medical marijuana use Diverticulosis seen in colonoscopy in 2023 GERD (gastroesophageal reflux disease) Chronic pancreatitis Urethral stricture COPD (chronic obstructive pulmonary disease) Essential (primary) hypertension Seizure disorder Mixed hyperlipidemia Osteoarthritis rt knee, cervical and Lumbar spine Heart attack Surgical History History of esophagogastroduodenoscopy (EGD) 2021. Showing esophagitis, gastritis, and duodenitis with + H.pylori biopsies History of back surgery Status post right knee replacement Status post right knee replacement Hx of reconstruction of anterior cruciate ligament tear H/O neck surgery H/O left knee surgery History of appendectomy History of cholecystectomy H/O right knee surgery H/O chest tube placement H/O removal of testicle Stented coronary artery Family History Brother Parkinson disease Cancer Diabetes Stroke Family/Other Cancer Chronic kidney disease (CKD) Suicide Grandmother CAD (coronary artery disease) Cancer Lung disease Grandfather Dementia Mother Lung disease Father Suicide Denies family history of Clotting disorder Anesthesia complication Bleeding disorder Social History Smoking and tobacco/nicotine status: current every day tobacco/nicotine user cigarettes [ Other cigarette details: 1cig, 40PY] Quit status (tobacco/nicotine): has tried quititng Alcohol intake: never Substance/Drug Use: current Substance/Drug use frequency: daily Other substance/drug use details: medical card Lives independently: Yes Household members: significant other service: No Current occupational status: disabled Current occupational exposures/hazards: Yes Do you think of yourself as: Straight/Heterosexual Current gender identity: Male Vitals/I&O/Wt Last Vital Signs Temp 97.4 F L 09/16/24 07:06 Pulse 64 09/16/24 12:30 Resp 18 09/16/24 12:07 BP 138/87 09/16/24 12:30 Pulse Ox 98 09/16/24 12:30 O2 Del Method Room Air 09/16/24 07:06 Weight last 48 hrs Weight 160 lb Physical Exam Narrative: General : Patient is well developed , no acute distress, oriented x3 Head : Normal cephalic, a-traumatic. Nose : Mucous membranes are without erythema. Lungs : Equal chest rise bilaterally, no use of accessory muscles, trachea is midline. CV : Rate and rhythm are normal. Abdomen : His abdomen is soft, there is tenderness to palpation on the left flank, no peritonitis no other concerning symptoms Extremities : No edema. Upper extremities are normal bilaterally. Back : non-tender to palpation, no CVA tenderness. Data 09/16/24 08:10 09/16/24 08:10 A&P Assessment and plan (1) Colitis: Plan After complete history, physical examination and review of all available clinical data the following is my assessment. Patient symptoms are most likely related to underlying inflammatory bowel disease, patient has been having several flareups over the last couple of months and imaging in different locations show evidence of inflammation at different levels of his GI tract. I agree with initial management with IV antibiotics, bowel rest and possible IV steroids as guided by medical team. In the case of persistent or worsening symptoms he might require inpatient GI evaluation for possible initiation of anti-TNF medication. At this moment there is no need for any surgical intervention. There is no indication for acute endoscopic evaluation in the setting as patient has active colitis. -Agree with management with bowel rest, antibiotics and IV steroids -If worsening of symptoms of persistent of symptoms despite therapy consider GI evaluation for possible anti-TNF medication -No additional surgical interventions indicated at this time PDMP PDMP Reviewed: Not Reviewed Coding Level of Care Code Acute Code for Chg Fwd Diagnoses Colitis K52.9
[2024-09-16 15:41] LABS: Erythrocyte Sedimentation Rate 21 mm/hr (0-10)
[2024-09-16 15:47] LABS: C Reactive Protein 61.8 mg/L (0.0-4.9)
--- NOTE | 2024-09-16 16:02 | PM.HP ---
Providers/Chief Complaint Admitting Physician: Delgado Morris Primary Care Provider: Jarrell Espino MD Chief Complaint: lt stomach pain History of Present Illness Pleasant 53-year-old gentleman with history of alpha gal syndrome, some recurrent episodes of diarrhea, history of C. difficile, GERD, COPD, DIMITRI, MDD, seizure disorder, current smoker, other medical problems, recently hospitalized, discharged on 08/27 after assessment and treatment of suspected colitis, with diarrhea, abdominal pain, treated with IV antibiotics, later with addition of corticosteroid. Symptoms improved, he discharged, however, symptoms had recurred. It appears she had not taken his medications that were prescribed to him. He reports diarrhea has been loose but brown. He is having some left-sided abdominal pain. Reports low-grade fever at home. He has not been able to tolerate any oral intake for about 2 days, states with poor appetite, nausea and vomiting. In ER he is afebrile, without leukocytosis, with mild hypokalemia 3.2, CT abdomen pelvis with long segment moderate circumferential colonic submucosal edema with narrowing of the lumen beginning just distal to the splenic flexure and extending through the sigmoid colon. There is mild pericolonic edema but no abscess or perforation. There are few associated diverticula. Pattern most consistent with that of infectious colitis or ischemic disease. Increasing fluid and more proximal colon. No free air or ascites. Moderate atherosclerotic plaque aorta. SMA atherosclerotic disease but no thrombus identified. Prior cholecystectomy and appendectomy. This was a contrast study. Lactic acid 1.2. Lipase 14. Review of Systems Const: Denies: fever(s), chills, body aches or malaise ENMT: Denies: throat pain Card: Denies: chest pain, edema, pre-syncope or dyspnea on exertion Resp: Denies: dyspnea, productive cough, change in phlegm color or hemoptysis GI: Reports: abdominal pain, nausea, vomiting and diarrhea; Denies: constipation, hematochezia or melena : Denies: flank pain, difficulty urinating, urinary frequency or hematuria Musc: Denies: back pain, joint swelling or joint redness Skin/Breast: Denies: rash or new lesions Medications/Allergies Home Medications ?Medication ?Instructions ?Recorded ?Confirmed ?Last Taken ?Type Bone Growth Stimulator #1 ea 01/04/24 09/16/24 07/15/24 05:15 Rx fluticasone 100 mcg-salmeterol 50 1 inh inhalation BID #60 ea 02/05/24 09/16/24 08/21/24 Rx mcg/dose blistr powdr for inhalation (Advair Diskus) nitroglycerin 0.4 mg sublingual 0.4 mg sublingual Q5M PRN chest 02/06/24 09/16/24 Unknown Rx tablet pain 30 days #30 tabs isosorbide mononitrate 30 mg 30 mg PO DAILY #30 tabs 06/24/24 09/16/24 08/21/24 Rx tablet,extended release 24 hr buspirone 30 mg tablet 30 mg PO BID #60 tabs 07/09/24 09/16/24 08/21/24 Rx ranolazine 500 mg tablet,extended 500 mg PO BID #60 tabs 07/15/24 09/16/24 08/21/24 Rx release,12 hr budesonide 0.5 mg/2 mL suspension 0.5 mg (2 mL) inhalation BID PRN 07/28/24 09/16/24 Unknown Rx for nebulization copd #60 mL clopidogrel 75 mg tablet 75 mg PO DAILY #90 tabs 07/28/24 09/16/24 08/21/24 Rx quetiapine 50 mg tablet (Seroquel) 50 mg PO BEDTIME #90 tabs 07/28/24 09/16/24 08/21/24 Rx fluoxetine 20 mg tablet 20 mg PO DAILY #60 tabs 08/18/24 09/16/24 08/21/24 Rx albuterol sulfate 90 mcg/actuation 2 puff inhalation Q4H PRN 08/24/24 09/16/24 Unknown History aerosol inhaler (Ventolin HFA) Shortness Of Breath aspirin 81 mg tablet,delayed 81 mg PO QAM 08/24/24 09/16/24 08/21/24 History release nicotine 21 mg/24 hr daily See Rx Instructions .Route .COMPLEX 08/24/24 09/16/24 08/24/24 History transdermal patch clonazepam 2 mg tablet 2 mg PO BID PRN Anxiety attacks 30 08/25/24 09/16/24 Unknown Rx days #60 tabs hydrocodone 5 mg-acetaminophen 325 1 tab PO Q12H PRN pain 28 days #56 08/26/24 09/16/24 Unknown Rx mg tablet tabs prednisone 20 mg tablet See Rx Instructions .Route 08/27/24 09/16/24 Unknown Rx .COMPLEX #37 tabs tamsulosin 0.4 mg capsule 0.4 mg PO QAM #90 caps 09/02/24 09/16/24 Unknown Rx zonisamide 100 mg capsule 200 mg (2 x 100 mg) PO BID #180 09/03/24 09/16/24 Unknown Rx caps ondansetron 4 mg disintegrating 4 mg PO Q6H PRN nausea and 09/04/24 09/16/24 Unknown Rx tablet vomiting #14 tabs pantoprazole 40 mg tablet,delayed 40 mg PO BID 30 days #60 tabs 09/05/24 09/16/24 Unknown Rx release scopolamine base 1 mg over 3 days 1 patch transdermal Q3D PRN motion 09/05/24 09/16/24 Unknown Rx transdermal patch sickness #10 ea atorvastatin 80 mg tablet 80 mg PO QAM 09/16/24 09/16/24 Unknown History Allergies Allergy/AdvReac Type Severity Reaction Status Date / Time meperidine (From Demerol) Allergy Severe ALGY-Hives Verified 09/11/24 14:05 Alpha-Gal Allergy upset GI Verified 09/11/24 14:05 (Pnqkrsxws-Ikphd-1,3-Gala (Vkzwzofah-Gxhao-0,3-Galactose (Alph) gabapentin AdvReac Severe ADR-Seizure Verified 09/11/24 14:05 morphine AdvReac Severe ALGY-Hives Verified 09/11/24 14:05 tramadol AdvReac Severe ADR-Seizure Verified 09/11/24 14:05 PFSH Acute PFSH: Medical History Moderate major depression Generalized anxiety disorder Alpha-gal syndrome Heart failure with mildly reduced ejection fraction (HFmrEF) Depression Chronic abdominal pain Hyponatremia Marijuana use, continuous H. pylori duodenitis Elevated glucose Anxiety and depression Screening for lung cancer Alpha galactosidase deficiency C. difficile colitis Atherosclerosis of coronary artery Medical marijuana use Diverticulosis seen in colonoscopy in 2023 GERD (gastroesophageal reflux disease) Chronic pancreatitis Urethral stricture COPD (chronic obstructive pulmonary disease) Essential (primary) hypertension Seizure disorder Mixed hyperlipidemia Osteoarthritis rt knee, cervical and Lumbar spine Heart attack Surgical History History of esophagogastroduodenoscopy (EGD) 2021. Showing esophagitis, gastritis, and duodenitis with + H.pylori biopsies History of back surgery Status post right knee replacement Status post right knee replacement Hx of reconstruction of anterior cruciate ligament tear H/O neck surgery H/O left knee surgery History of appendectomy History of cholecystectomy H/O right knee surgery H/O chest tube placement H/O removal of testicle Stented coronary artery Family History Brother Parkinson disease Cancer Diabetes Stroke Family/Other Cancer Chronic kidney disease (CKD) Suicide Grandmother CAD (coronary artery disease) Cancer Lung disease Grandfather Dementia Mother Lung disease Father Suicide Denies family history of Clotting disorder Anesthesia complication Bleeding disorder Social History Smoking and tobacco/nicotine status: current every day tobacco/nicotine user cigarettes [ Other cigarette details: 1cig, 40PY] Quit status (tobacco/nicotine): has tried quititng Alcohol intake: never Substance/Drug Use: current Substance/Drug use frequency: daily Other substance/drug use details: medical card Lives independently: Yes Household members: significant other service: No Current occupational status: disabled Current occupational exposures/hazards: Yes Do you think of yourself as: Straight/Heterosexual Current gender identity: Male Vitals/I&O/Wt Last Vital Signs Temp 97.4 F L 09/16/24 07:06 Pulse 58 L 09/16/24 15:30 Resp 20 H 09/16/24 15:39 BP 104/76 09/16/24 15:30 Pulse Ox 96 09/16/24 15:39 O2 Del Method Room Air 09/16/24 15:30 Weight last 48 hrs Weight 72.575 kg Physical Exam Const: COMMON NORMALS: patient oriented x3 and alert GENERAL APPEARANCE: cooperative ORIENTATION/CONSCIOUSNESS: Yes awake HENMT: COMMON NORMALS: oropharynx normal Neck/C-Spine: COMMON NORMALS: no JVD Resp: COMMON NORMALS: normal respiratory effort and clear to auscultation bilaterally AUSCULTATION: clear to auscultation bilaterally Cardio: COMMON NORMALS: no JVD, regular rhythm, S1 normal heart sound present, S2 normal heart sound present and No murmurs present (Cardio) RHYTHM: regular rhythm HEART SOUNDS: S1 normal heart sound present and S2 normal heart sound present GI: COMMON NORMALS: Normal to inspection, nondistended, normoactive bowel sounds present and Soft to palpation PALPATION: Yes Soft to palpation and Yes Tenderness to palpation present (GI) Details: other (L) Extremity: COMMON NORMALS: no joint enlargement and no pedal edema Neuro: COMMON NORMALS: patient oriented x3 and moves all extremities SENSORIUM/ORIENTATION: Yes alert Skin: COMMON NORMALS: no rashes or lesions noted GENERAL SKIN EXAM: no rashes or lesions noted Data 09/16/24 08:10 09/16/24 08:10 A&P Assessment and plan (1) Colitis: Appears to have recurrence of colitis, although last time seems to have duodenitis, seems to have inflammation in different locations, again as per discussion with him at this time cannot exclude infection, he did have a colonoscopy seems like in April for which he discussed results last week with GI in [facility] with [employer] Alysa Vines, colonoscopy was performed by Dr. Salmeron. Requesting medical records. Her, was told that the only findings were some diverticulosis as well as internal hemorrhoids. He was not sure whether it was a full colonoscopy or only lower part of the colon, additionally was not sure if biopsies were taken or not. At this time with possible infectious colitis, possible diverticulitis, antibiotic treatment with ciprofloxacin, Flagyl, monitor for risk of C. difficile with history of C. difficile. Discussed with him also assessment of stool studies C. difficile, Salmonella, Shigella, Campylobacter, ova and parasites. Discussed with the surgeon, appreciate consultation, consideration of sigmoidoscopy for further diagnostic assessment to help establish etiology of his recurrent episodes, recurrent diarrhea, at current time concern regarding acute acclamation, but repeat endoscopy will be offered to him for after hospitalization with follow-up in office. For now per discussion hold off on steroid for tonight, will reassess again with initiation of antibiotic if there is no improvement, consider addition of corticosteroid. Discussed with him risk of immune compromise, risk of C. difficile from steroids. Monitor for risk of kidney injury, electrolyte imbalance with persistent diarrhea, replace hypokalemia. Recheck potassium, check magnesium. Reviewed vitals, CBC, requested ESR, reviewed CMP, requested CRP, reviewed lipase. Reviewed ESR, CRP, UA reviewed UA, reviewed CT abdomen pelvis. Discussed with ER provider, reviewed ER provider note. Reviewed surgery note, discussed with the surgeon. Will give IV hydration for now as he has not been able to keep down food or drink with poor appetite, nausea and vomiting, will give NS 75 mL/h, monitor for risk of fluid overload. Plan alpha gal syndrome, history of C. difficile, GERD, PPI COPD, currently not in exacerbation, DuoNeb, budesonide requested. DIMITRI, MDD, continue fluoxetine, quetiapine, clonazepam, buspirone seizure disorder, current smoker, encourage cessation. Nicotine as needed. other medical problems PDMP PDMP Reviewed: Not Reviewed Attestations Medical Necessity Statement*: Place in observation for additional assessment management of recurrent colitis, possible infectious colitis versus IBD flare and gentleman who is unable to keep anything down food or drink for the last 2 days. and High MDM includes amount and/or complexity of data reviewed/ordered [ previous or external records, resulted lab(s)/test(s), ordered lab(s)/test(s) and other healthcare professional discussion] and described risk of complication, morbidity or mortality of management as documented Diagnoses Colitis K52.9
[2024-09-16] MEDS: nicotine 21 mg Patch 1 PATCH TRANSDERMA (16:38)
[2024-09-16] MEDS: sodium chloride 0.9% 1,000 ML 75 ML IV (17:27)
[2024-09-16] MEDS: metroNIDAZOLE IV 500 MG/100 ML PREMIX 100 MG IV ×2 (17:28→22:39)
[2024-09-16] MEDS: ciprofloxacin 400 MG/200 ML PREMIX 200 MG IV (18:16)
[2024-09-16] MEDS: HYDROMORPHONE HCL 0.5 MG/0.5 ML INJ 1 MG IVP (18:25)
--- NOTE | 2024-09-16 20:40 | PC.NURSE ---
Pt has known Alpha-Gal Allergy. This nurse educated the pt that our med supply has potential to cause Allergic reaction, the pt verbalized understanding of the risk for allergic reaction and requested meds to be administered from our supply as ordered. Pt had no further questions on this matter.
[2024-09-16] MEDS: quetiapine 25 mg Tablet 50 MG PO (20:47)
[2024-09-16] MEDS: pantoprazole DR 40 mg Tablet PO (20:47)
[2024-09-16] MEDS: ranolazine (12HR) 500 mg Tablet PO (20:47)
[2024-09-17] VITALS (8 sets, daily range): BP systolic 83–115; BP diastolic 48–72; PULSE 54–81; RESP 12–19; TEMP 36.5–36.8; O2SAT 95–98
[2024-09-17] MEDS: ciprofloxacin 400 MG/200 ML PREMIX 200 MG IV ×2 (03:32→17:51)
[2024-09-17] MEDS: HYDROcodone-acetaminophen 5-325 mg Tablet 1 TAB PO ×3 (03:42→19:31)
[2024-09-17] MEDS: ondansetron 2 mg/ML SDV 2 mL 4 MG IVP ×2 (03:42→10:15)
[2024-09-17] MEDS: atorvastatin 40 mg Tablet 80 MG PO (05:23)
[2024-09-17] MEDS: aspirin 81 mg EC Tablet PO (05:23)
[2024-09-17] MEDS: metroNIDAZOLE IV 500 MG/100 ML PREMIX 100 MG IV ×3 (05:41→20:16)
[2024-09-17] MEDS: sodium chloride 0.9% 1,000 ML 75 ML IV (05:42)
[2024-09-17 06:06] LABS: Basophils % 0.3 %; Eosinophils # 0.3 10^3/uL (0.0-0.8); Eosinophils % 4.1 %; Hematocrit 37.1 % (37-53); Lymphocytes # 1.5 10^3/uL (0.8-4.8); Lymphocytes % 22.8 %; Mean Corpuscular HGB Conc 33.7 g/dL (30-55); Mean Corpuscular Hemoglobin 33.7 pg (27-33); Mean Platelet Volume 8.8 fL (7.4-10.4); Monocytes # 0.6 10^3/uL (0.2-0.9); Monocytes % 8.6 %; Neutrophils # 4.24 10^3/uL (1.8-7.7); Neutrophils % 63.6 %; Nucleated Red Blood Cells % 0 %; Platelet Count 221 10^3/cmm (157-399); Red Blood Count 3.71 10^6/uL (3.85-5.65); Red Cell Distribution Width 12.7 % (12.1-15.1); White Blood Count 6.66 10^3/uL (3.29-11.43)
[2024-09-17 06:44] LABS: Anion Gap 20.3 (5-19); Blood Urea Nitrogen 14 mg/dL (6-20); Calcium 8.5 mg/dL (8.5-10.5); Carbon Dioxide 18 mmol/L (22-29); Chloride 100 mmol/L (98-107); Creatinine Clr Calc Pharmacy 135.6341; Glomerular Filtration Rate 141.5 mL/min (90-130); Glucose 89 mg/dL (65-115); Magnesium 1.8 mg/dL (1.7-2.3); Osmolality Calculated 280 mOsm/kg (285-295); Potassium 3.3 mmol/L (3.5-5.1); Sodium 135 mmol/L (136-145)
[2024-09-17] MEDS: magnesium sulfate premix 1 GM/100 ML PIGGYBACK IV (08:49)
[2024-09-17] MEDS: fondaparinux 2.5 mg/0.5 mL Syringe SUBCUT (10:14)
[2024-09-17] MEDS: lidocaine 1% 5 ML in potassium chloride premix 100 ML 52.5 ML IV (10:15)
[2024-09-17] MEDS: nicotine 21 mg Patch 1 PATCH TRANSDERMA (10:16)
[2024-09-17] MEDS: ranolazine (12HR) 500 mg Tablet PO ×2 (10:27→17:50)
[2024-09-17] MEDS: isosorbide mononitrate ER 30 mg Tablet PO (10:27)
[2024-09-17] MEDS: fluoxetine 20 mg Capsule PO (10:27)
[2024-09-17] MEDS: clopidogrel 75 mg Tablet PO (10:27)
[2024-09-17] MEDS: pantoprazole DR 40 mg Tablet PO ×2 (10:27→17:50)
[2024-09-17] MEDS: BuSPIRONE 10 mg Tablet 30 MG PO ×2 (10:27→17:51)
--- NOTE | 2024-09-17 13:53 | P.PN_ITS ---
Subjective 2 Subjective: Patient is doing okay, tolerating liquid diet. Some mild nausea. Abdominal pain slightly improved from yesterday. Has not have any more liquid bowel movements Vitals/I&O/Wt Last Vital Signs Temp 97.7 F 09/17/24 12:00 Pulse 59 L 09/17/24 12:00 Resp 18 09/17/24 12:00 BP 83/48 09/17/24 12:00 Pulse Ox 96 09/17/24 12:00 O2 Del Method Room Air 09/17/24 12:00 09/16/24 09/17/24 09/17/24 22:59 06:59 14:59 Intake Total 300 / 300 1318.75 / 1618.75 580 / 580 Output Total 350 / 350 Balance 300 / 300 968.75 / 1268.75 580 / 580 Weight last 48 hrs Weight 156 lb Weight 156 lb 11.2 oz Weight 160 lb Physical Exam 2 GI: OTHER: Abdominal examination is benign abdomen soft nontender nondistended Data 09/17/24 04:17 09/17/24 04:17 A&P Assessment and plan (1) Colitis: Plan Patient appears to be improving, while he is still complains of abdominal pain on my examination he did not have any tenderness in the abdomen. Has not had a bowel movement since admission and is tolerating clears. His white count trended down to 6, vital signs have remained stable. I agreed to continue current clinical management if he is doing okay by tomorrow we can advance to a GI soft diet. If there is persistent or worsening of symptoms we might decide to start IV steroids as guided by the medical team. No indication for surgical or endoscopic intervention at this time. I did explain to the patient that I think probably were going to have to repeat his colonoscopy in the short-term and get some random biopsies may be able to get that tissue diagnosis. He shows understanding PDMP PDMP Reviewed: Not Reviewed Attestations 2 Medical Necessity Statement*: Per medical team Coding Level of Care Code Acute Code for Chg Fwd Diagnoses Colitis K52.9
--- NOTE | 2024-09-17 15:53 | PC.NURSE ---
low bp not reported to rn, this rn took bp again with proper cuff and it was found to be 105/58
--- NOTE | 2024-09-17 17:13 | PM.PN ---
Subjective Subjective: And improved so far, very poor appetite, poor oral intake, nausea, left side abdominal pain. Vitals/I&O/Wt Last Vital Signs Temp 97.7 F 09/17/24 12:00 Pulse 59 L 09/17/24 12:00 Resp 18 09/17/24 12:00 BP 83/48 09/17/24 12:00 Pulse Ox 96 09/17/24 12:00 O2 Del Method Room Air 09/17/24 12:00 09/17/24 09/17/24 09/17/24 06:59 14:59 22:59 Intake Total 1318.75 / 1618.75 580 / 580 105 / 685 Output Total 350 / 350 Balance 968.75 / 1268.75 580 / 580 105 / 685 Weight last 48 hrs Weight 70.76 kg Weight 71.078 kg Weight 72.575 kg Physical Exam Const: COMMON NORMALS: patient oriented x3 and alert GENERAL APPEARANCE: cooperative ORIENTATION/CONSCIOUSNESS: Yes awake HENMT: COMMON NORMALS: oropharynx normal Neck/C-Spine: COMMON NORMALS: no JVD Resp: COMMON NORMALS: normal respiratory effort and clear to auscultation bilaterally AUSCULTATION: clear to auscultation bilaterally Cardio: COMMON NORMALS: no JVD, regular rhythm, S1 normal heart sound present, S2 normal heart sound present and No murmurs present (Cardio) RHYTHM: regular rhythm HEART SOUNDS: S1 normal heart sound present and S2 normal heart sound present GI: COMMON NORMALS: Normal to inspection, nondistended, normoactive bowel sounds present and Soft to palpation PALPATION: Yes Soft to palpation and Yes Tenderness to palpation present (GI) Details: other (L) Extremity: COMMON NORMALS: no joint enlargement and no pedal edema Neuro: COMMON NORMALS: patient oriented x3 and moves all extremities SENSORIUM/ORIENTATION: Yes alert Skin: COMMON NORMALS: no rashes or lesions noted GENERAL SKIN EXAM: no rashes or lesions noted Data 09/17/24 04:17 09/17/24 04:17 A&P Assessment and plan (1) Colitis: Reviewed vitals, CBC. Afebrile, without leukocytosis. So far has not been able to provide a stool sample. Continue with empiric antibiotic coverage, Cipro, Flagyl, so far improved. Poor oral intake. Continue IV fluid, monitor for risk of fluid overload. We may advance oral intake in case symptoms are improving. Reviewed surgery note. If further lack of improvement with antibiotic, consider addition of corticosteroid. Follow-up for endoscopy for more definitive diagnosis. No bloody stools. Stool studies are requested, so far and collected. Discussed with director of casework services, nursing. Has been having pain, not great response from hydrocodone so far. IV morphine as needed is requested. Consider to oral morphine liquid for improved absorption, however, has that listed morphine allergy. Appears to have recurrence of colitis, although last time seems to have duodenitis, seems to have inflammation in different locations, again as per discussion with him at this time cannot exclude infection, he did have a colonoscopy seems like in April for which he discussed results last week with GI in [facility] with [employer] Alysa Vines, colonoscopy was performed by Dr. Salmeron. Requesting medical records. Her, was told that the only findings were some diverticulosis as well as internal hemorrhoids. He was not sure whether it was a full colonoscopy or only lower part of the colon, additionally was not sure if biopsies were taken or not. At this time with possible infectious colitis, possible diverticulitis, antibiotic treatment with ciprofloxacin, Flagyl, monitor for risk of C. difficile with history of C. difficile. Discussed with him also assessment of stool studies C. difficile, Salmonella, Shigella, Campylobacter, ova and parasites. Discussed with the surgeon, appreciate consultation, consideration of sigmoidoscopy for further diagnostic assessment to help establish etiology of his recurrent episodes, recurrent diarrhea, at current time concern regarding acute acclamation, but repeat endoscopy will be offered to him for after hospitalization with follow-up in office. For now per discussion hold off on steroid for tonight, will reassess again with initiation of antibiotic if there is no improvement, consider addition of corticosteroid. Discussed with him risk of immune compromise, risk of C. difficile from steroids. Monitor for risk of kidney injury, electrolyte imbalance with persistent diarrhea, replace hypokalemia. Recheck potassium, check magnesium. Plan Hypokalemia: 3.3. Requested replacement. Magnesium also on the low side, 1.8. Replace magnesium. Recheck chemistry, recheck magnesium. alpha gal syndrome, history of C. difficile, GERD, PPI COPD, currently not in exacerbation, DuoNeb, budesonide requested. DIMITRI, MDD, continue fluoxetine, quetiapine, clonazepam, buspirone seizure disorder, current smoker, encourage cessation. Nicotine as needed. other medical problems PDMP PDMP Reviewed: Not Reviewed Attestations Medical Necessity Statement*: Requiring admission over 2 midnights for additional assessment management of recurrent colitis, possible infectious colitis versus IBD flare and gentleman who is unable to keep anything down food or drink for the last several days. Diagnoses Colitis K52.9
[2024-09-17] MEDS: quetiapine 25 mg Tablet 50 MG PO (20:17)
[2024-09-17] MEDS: budesonide 0.5 mg/2 mL Neb 0.25 MG INHALATION (20:36)
[2024-09-18] VITALS (7 sets, daily range): BP systolic 93–136; BP diastolic 65–78; PULSE 63–79; RESP 16–18; TEMP 36.5–36.8; O2SAT 95–98
[2024-09-18] MEDS: metroNIDAZOLE IV 500 MG/100 ML PREMIX 100 MG IV (01:00)
[2024-09-18] MEDS: sodium chloride 0.9% 1,000 ML 75 ML IV (01:00)
[2024-09-18 05:34] LABS: Basophils % 0.4 %; Eosinophils # 0.2 10^3/uL (0.0-0.8); Eosinophils % 3.4 %; Hematocrit 35.2 % (37-53); Lymphocytes # 1.4 10^3/uL (0.8-4.8); Lymphocytes % 27.7 %; Mean Corpuscular HGB Conc 33.8 g/dL (30-55); Mean Corpuscular Hemoglobin 33.3 pg (27-33); Mean Corpuscular Volume 98.6 fl (82-101); Mean Platelet Volume 8.5 fL (7.4-10.4); Monocytes # 0.3 10^3/uL (0.2-0.9); Monocytes % 6.9 %; Neutrophils # 3.03 10^3/uL (1.8-7.7); Neutrophils % 61.2 %; Nucleated Red Blood Cells % 0 %; Platelet Count 245 10^3/cmm (157-399); Red Blood Count 3.57 10^6/uL (3.85-5.65); Red Cell Distribution Width 12.4 % (12.1-15.1); White Blood Count 4.95 10^3/uL (3.29-11.43)
[2024-09-18] MEDS: ciprofloxacin 400 MG/200 ML PREMIX 200 MG IV (05:50)
[2024-09-18] MEDS: atorvastatin 40 mg Tablet 80 MG PO (05:50)
[2024-09-18] MEDS: aspirin 81 mg EC Tablet PO (05:50)
[2024-09-18 05:53] LABS: Anion Gap 17.8 (5-19); Blood Urea Nitrogen 9 mg/dL (6-20); Calcium 8.5 mg/dL (8.5-10.5); Carbon Dioxide 17 mmol/L (22-29); Chloride 107 mmol/L (98-107); Creatinine Clr Calc Pharmacy 114.3253; Glomerular Filtration Rate 118.4 mL/min (90-130); Glucose 94 mg/dL (65-115); Osmolality Calculated 284 mOsm/kg (285-295); Potassium 3.8 mmol/L (3.5-5.1); Sodium 138 mmol/L (136-145)
[2024-09-18 05:59] LABS: Magnesium 1.8 mg/dL (1.7-2.3)
[2024-09-18 08:51] LABS: Erythrocyte Sedimentation Rate 12 mm/hr (0-10)
[2024-09-18 08:55] LABS: C Reactive Protein 11.6 mg/L (0.0-4.9)
[2024-09-18] MEDS: ondansetron 2 mg/ML SDV 2 mL 4 MG IVP (09:27)
[2024-09-18] MEDS: nicotine 21 mg Patch 1 PATCH TRANSDERMA (09:29)
[2024-09-18] MEDS: pantoprazole DR 40 mg Tablet PO ×2 (09:29→16:52)
[2024-09-18] MEDS: BuSPIRONE 10 mg Tablet 30 MG PO ×2 (09:29→16:52)
[2024-09-18] MEDS: HYDROcodone-acetaminophen 5-325 mg Tablet 1 TAB PO ×2 (09:29→20:29)
[2024-09-18] MEDS: fluoxetine 20 mg Capsule PO (09:29)
[2024-09-18] MEDS: ranolazine (12HR) 500 mg Tablet PO ×2 (09:29→16:52)
[2024-09-18] MEDS: clopidogrel 75 mg Tablet PO (09:29)
[2024-09-18] MEDS: isosorbide mononitrate ER 30 mg Tablet PO (09:29)
[2024-09-18] MEDS: magnesium sulfate premix 1 GM/100 ML PIGGYBACK IV (09:32)
[2024-09-18] MEDS: fondaparinux 2.5 mg/0.5 mL Syringe SUBCUT (09:32)
--- NOTE | 2024-09-18 14:55 | PM.PN ---
Subjective Subjective: He is still having abdominal pain making him feel miserable as well as nausea, but so far no further diarrhea. No vomiting, has been able to tolerate clear liquid diet. Vitals/I&O/Wt Last Vital Signs Temp 97.7 F 09/18/24 11:08 Pulse 74 09/18/24 11:08 Resp 17 09/18/24 11:08 BP 93/65 09/18/24 11:08 Pulse Ox 95 09/18/24 11:08 O2 Del Method Room Air 09/18/24 11:08 09/17/24 09/18/24 09/18/24 22:59 06:59 14:59 Intake Total 2525 / 3105 1400 / 4505 300 / 300 Output Total 700 / 700 350 / 1050 Balance 1825 / 2405 1050 / 3455 300 / 300 Weight last 48 hrs Weight 67.993 kg Weight 70.76 kg Weight 71.078 kg Physical Exam Const: COMMON NORMALS: patient oriented x3 and alert GENERAL APPEARANCE: cooperative ORIENTATION/CONSCIOUSNESS: Yes awake HENMT: COMMON NORMALS: oropharynx normal Neck/C-Spine: COMMON NORMALS: no JVD Resp: COMMON NORMALS: normal respiratory effort and clear to auscultation bilaterally AUSCULTATION: clear to auscultation bilaterally Cardio: COMMON NORMALS: no JVD, regular rhythm, S1 normal heart sound present, S2 normal heart sound present and No murmurs present (Cardio) RHYTHM: regular rhythm HEART SOUNDS: S1 normal heart sound present and S2 normal heart sound present GI: COMMON NORMALS: Normal to inspection, nondistended, normoactive bowel sounds present and Soft to palpation PALPATION: Yes Soft to palpation and Yes Tenderness to palpation present (GI) Extremity: COMMON NORMALS: no joint enlargement and no pedal edema Neuro: COMMON NORMALS: patient oriented x3 and moves all extremities SENSORIUM/ORIENTATION: Yes alert Skin: COMMON NORMALS: no rashes or lesions noted GENERAL SKIN EXAM: no rashes or lesions noted Data 09/18/24 05:08 09/18/24 05:08 A&P Assessment and plan (1) Colitis: So far without additional diarrhea. Reviewed vitals, CBC, afebrile, no leukocytosis. Reviewed intake. He reports no further diarrhea episodes. So far tolerating clear liquids. Although still having nausea, abdominal pain. He does requested to try to advance to full liquids. Requested. Requested repeat ESR, CRP, reviewed, noted with improvement of ESR from 21-12, CRP from 63-11.6. Discussed with nursing, supportive employment case manager, discussed with the surgeon. For now continue current treatment with antibiotics as he is overall showing improvement. Hold off on additional steroids for now. Will reassess his condition. Repeat CBC. Chemistry. Continue IV hydration supplementation, will decrease rate down to 30 mL/h while he is attempting to reestablish oral intake. Monitor for risk of fluid overload. Considered to oral morphine liquid for improved absorption, however, has that listed morphine allergy. 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 Salmeron. Requesting medical records. Her, was told that the only findings were some diverticulosis as well as internal hemorrhoids. He was not sure whether it was a full colonoscopy or only lower part of the colon, additionally was not sure if biopsies were taken or not. At this time with possible infectious colitis, possible diverticulitis, antibiotic treatment with ciprofloxacin, Flagyl, monitor for risk of C. difficile with history of C. difficile. Discussed with him also assessment of stool studies C. difficile, Salmonella, Shigella, Campylobacter, ova and parasites. Discussed with the surgeon, appreciate consultation, consideration of sigmoidoscopy for further diagnostic assessment to help establish etiology of his recurrent episodes, recurrent diarrhea, at current time concern regarding acute acclamation, but repeat endoscopy will be offered to him for after hospitalization with follow-up in office. For now per discussion hold off on steroid for tonight, will reassess again with initiation of antibiotic if there is no improvement, consider addition of corticosteroid. Discussed with him risk of immune compromise, risk of C. difficile from steroids. Monitor for risk of kidney injury, electrolyte imbalance with persistent diarrhea, replace hypokalemia. Recheck potassium, check magnesium. Plan Hypokalemia: Reviewed potassium, hypokalemia with improvement. Magnesium again today 1.8, requested additional replacement. Recheck chemistry, and magnesium. alpha gal syndrome, history of C. difficile, GERD, PPI COPD, currently not in exacerbation, DuoNeb, budesonide requested. DIMITRI, MDD, continue fluoxetine, quetiapine, clonazepam, buspirone seizure disorder, current smoker, encourage cessation. Nicotine as needed. other medical problems PDMP PDMP Reviewed: Not Reviewed Attestations Medical Necessity Statement*: Continue admission for assessment management of recurrent symptomatic colitis, attempt to reestablish oral intake. and High MDM includes amount and/or complexity of data reviewed/ordered [ resulted lab(s)/test(s), ordered lab(s)/test(s) and other healthcare professional discussion] and described risk of complication, morbidity or mortality of management as documented Diagnoses Colitis K52.9
[2024-09-18] MEDS: CLONazepam 1 mg Tablet 2 MG PO (16:52)
[2024-09-18] MEDS: sodium chloride 0.9% 1,000 ML 30 ML IV (16:54)
[2024-09-18] MEDS: quetiapine 25 mg Tablet 50 MG PO (20:29)
[2024-09-19] VITALS: BP 110/62; PULSE 68; RESP 18; TEMP 36.8; O2SAT 98
[2024-09-19 03:53] VITALS: BP 124/74; PULSE 66; RESP 16; TEMP 36.7; O2SAT 98
[2024-09-19 05:39] LABS: Basophils % 0.8 %; Eosinophils # 0.3 10^3/uL (0.0-0.8); Eosinophils % 5.5 %; Hematocrit 36.4 % (37-53); Lymphocytes # 1.6 10^3/uL (0.8-4.8); Mean Corpuscular HGB Conc 33.8 g/dL (30-55); Mean Corpuscular Hemoglobin 33.7 pg (27-33); Mean Corpuscular Volume 99.7 fl (82-101); Mean Platelet Volume 8.7 fL (7.4-10.4); Monocytes # 0.4 10^3/uL (0.2-0.9); Monocytes % 7.4 %; Neutrophils # 2.75 10^3/uL (1.8-7.7); Neutrophils % 53.5 %; Nucleated Red Blood Cells % 0 %; Platelet Count 259 10^3/cmm (157-399); Red Blood Count 3.65 10^6/uL (3.85-5.65); Red Cell Distribution Width 12.6 % (12.1-15.1); White Blood Count 5.13 10^3/uL (3.29-11.43)
[2024-09-19 05:58] LABS: Blood Urea Nitrogen 5 mg/dL (6-20); Calcium 8.4 mg/dL (8.5-10.5); Carbon Dioxide 18 mmol/L (22-29); Chloride 108 mmol/L (98-107); Creatinine Clr Calc Pharmacy 114.0724; Glomerular Filtration Rate 118.4 mL/min (90-130); Glucose 95 mg/dL (65-115); Osmolality Calculated 283 mOsm/kg (285-295); Sodium 138 mmol/L (136-145)
[2024-09-19] MEDS: atorvastatin 40 mg Tablet 80 MG PO (06:06)
[2024-09-19] MEDS: aspirin 81 mg EC Tablet PO (06:06)
[2024-09-19 06:14] LABS: Anion Gap 15.7 (5-19); Potassium 3.7 mmol/L (3.5-5.1)
--- NOTE | 2024-09-19 07:58 | P.PN_ITS ---
Subjective 2 Subjective: Patient is doing well this morning, no further diarrhea, abdominal pain has improved, he tolerated full liquid diet. Vitals/I&O/Wt Last Vital Signs Temp 98.1 F 09/19/24 03:53 Pulse 66 09/19/24 03:53 Resp 16 09/19/24 03:53 BP 124/74 09/19/24 03:53 Pulse Ox 98 09/19/24 03:53 O2 Del Method Room Air 09/19/24 03:53 09/18/24 09/19/24 09/19/24 22:59 06:59 14:59 Intake Total 1230 / 1770 751.5 / 2521.5 Output Total 800 / 800 Balance 430 / 970 751.5 / 1721.5 Weight last 48 hrs Weight 149 lb 1.6 oz Weight 149 lb 14.4 oz Physical Exam 2 GI: OTHER: Abdomen is soft nontender nondistended there is only minimal tenderness in the left lower quadrant Data 09/19/24 05:21 09/19/24 05:21 A&P Assessment and plan (1) Colitis: Plan Patient showing good progression. Has responded well to management with fluids and antibiotics. At this point I think is appropriate to advance to a GI soft diet. Has not required steroids during this admission. PDMP PDMP Reviewed: Not Reviewed Attestations 2 Medical Necessity Statement*: Per medical team Coding Level of Care Code Acute Code for g Fwd Diagnoses Colitis K52.9
[2024-09-19 08:00] VITALS: BP 103/45; PULSE 70; RESP 16; O2SAT 99
[2024-09-19] MEDS: clopidogrel 75 mg Tablet PO (08:38)
[2024-09-19] MEDS: pantoprazole DR 40 mg Tablet PO (08:38)
[2024-09-19] MEDS: BuSPIRONE 10 mg Tablet 30 MG PO (08:38)
[2024-09-19] MEDS: nicotine 21 mg Patch 1 PATCH TRANSDERMA (08:39)
[2024-09-19] MEDS: isosorbide mononitrate ER 30 mg Tablet PO (08:39)
[2024-09-19] MEDS: fluoxetine 20 mg Capsule PO (08:39)
[2024-09-19] MEDS: fondaparinux 2.5 mg/0.5 mL Syringe SUBCUT (08:40)
[2024-09-19] MEDS: ranolazine (12HR) 500 mg Tablet PO (08:40)
[2024-09-19] MEDS: metroNIDAZOLE IV 500 MG/100 ML PREMIX 100 MG IV (10:03)
[2024-09-19 11:19] VITALS: BP 155/77; PULSE 65; RESP 17; TEMP 36.8; O2SAT 100
--- NOTE | 2024-09-19 12:11 | PM.DCS ---
Discharge Providers Date of Admission: 09/17/24 17:18 Date of Discharge: September 19, 2024 Attending Provider at Admission: Delgado Morris Attending Provider at Discharge: Delgado Morris Primary Care Provider: Jarrell Espino MD Diagnoses at Discharge Discharge Diagnosis (1) Colitis: Status: Acute Reason for Visit Reason for Visit: lt stomach pain Brief History: Pleasant 53-year-old gentleman with history of alpha gal syndrome, some recurrent episodes of diarrhea, history of C. difficile, GERD, COPD, DIMITRI, MDD, seizure disorder, current smoker, other medical problems, recently hospitalized, discharged on 08/27 after assessment and treatment of suspected colitis, with diarrhea, abdominal pain, treated with IV antibiotics, later with addition of corticosteroid. Symptoms improved, he discharged, however, symptoms had recurred. It appears she had not taken his medications that were prescribed to him. He reports diarrhea has been loose but brown. He is having some left-sided abdominal pain. Reports low-grade fever at home. He has not been able to tolerate any oral intake for about 2 days, states with poor appetite, nausea and vomiting. In ER he is afebrile, without leukocytosis, with mild hypokalemia 3.2, CT abdomen pelvis with long segment moderate circumferential colonic submucosal edema with narrowing of the lumen beginning just distal to the splenic flexure and extending through the sigmoid colon. There is mild pericolonic edema but no abscess or perforation. There are few associated diverticula. Pattern most consistent with that of infectious colitis or ischemic disease. Increasing fluid and more proximal colon. No free air or ascites. Moderate atherosclerotic plaque aorta. SMA atherosclerotic disease but no thrombus identified. Prior cholecystectomy and appendectomy. This was a contrast study. Lactic acid 1.2. Lipase 14. Hospital Course Hospital Course He was assessed by surgery, with recommendation for continued medical therapy, antibiotics, concerned that risk would not outweigh benefit of current endoscopy, but with follow-up arrangement in office to arrange for repeat endoscopic evaluation and biopsies. He was treated with IV antibiotics with ciprofloxacin and Flagyl. Corticosteroids were not started but considered in case of lack of improvement. Inflammatory markers initially moderately elevated but showing improvement with just antibiotic treatment. Symptomatically improving as well with resolution of diarrhea, resolution of nausea and vomiting, tolerating oral intake. He was able to advance to full liquid and today GI soft diet which she has tolerated. Symptoms continue to improve. He remains afebrile without leukocytosis. On further reassessment including by surgery he was found appropriate for continued treatment with oral antibiotics and follow-up in office of colitis, further assessment for questionable presence of IBD given recurrent episodes. He knows to seek medical attention for discussion in case of worsening or new concerning symptoms. Physical Exam Const: COMMON NORMALS: patient oriented x3 and alert GENERAL APPEARANCE: cooperative ORIENTATION/CONSCIOUSNESS: Yes awake HENMT: COMMON NORMALS: oropharynx normal Neck/C-Spine: COMMON NORMALS: no JVD Resp: COMMON NORMALS: normal respiratory effort and clear to auscultation bilaterally AUSCULTATION: clear to auscultation bilaterally Cardio: COMMON NORMALS: no JVD, regular rhythm, S1 normal heart sound present, S2 normal heart sound present and No murmurs present (Cardio) RHYTHM: regular rhythm HEART SOUNDS: S1 normal heart sound present and S2 normal heart sound present GI: COMMON NORMALS: Normal to inspection, nondistended, normoactive bowel sounds present, Soft to palpation and non-tender PALPATION: Yes Soft to palpation OTHER: Significant improvement in abdominal tenderness. Extremity: COMMON NORMALS: no joint enlargement and no pedal edema Neuro: COMMON NORMALS: patient oriented x3 and moves all extremities SENSORIUM/ORIENTATION: Yes alert Skin: COMMON NORMALS: no rashes or lesions noted GENERAL SKIN EXAM: no rashes or lesions noted Discharge Data Studies Completed and Pending Completed Studies During Hospitalization Category Date Time Status CT abdomen pelvis w con* [id number] Stat Cat Scan 09/16/24 09:18 Completed Pending at discharge Category Date Time Status Basic Metabolic Panel AM LABS Lab 09/20/24 04:00 Ordered Basic Metabolic Panel AM LABS Lab 09/21/24 04:00 Ordered Basic Metabolic Panel AM LABS Lab 09/22/24 04:00 Ordered C.Diff PCR (Lab) Routine Lab 09/16/24 15:05 Uncollected Complete Blood Count w/Auto AM LABS Lab 09/20/24 04:00 Ordered Complete Blood Count w/Auto AM LABS Lab 09/21/24 04:00 Ordered Complete Blood Count w/Auto AM LABS Lab 09/22/24 04:00 Ordered OVA and Parasites, Conc and PE Routine Lab 09/16/24 15:05 Uncollected Stool Culture - Enteric [Salmonella / Shigella / Campy] Lab 09/16/24 15:05 Ordered Routine Radiology Impressions Abdomen/Pelvis CT 09/16/24 09:18 IMPRESSION: 1. Long segment, moderate circumferential colonic submucosal edema with narrowing of the lumen beginning just distal to the splenic flexure and extending through the sigmoid colon. There is mild pericolonic edema but no abscess or perforation. There are a few associated diverticula. Pattern is most consistent with that of infectious colitis or ischemic disease. 2. Increasing fluid in the more proximal colon. 3. No free air. No ascites. 4. Moderate atherosclerotic plaque aorta. SMA atherosclerotic disease but no thrombus identified. 5. Prior cholecystectomy and appendectomy. Laboratory Results WBC 5.13 10^3/uL (3.29-11.43) 09/19/24 05:21 RBC 3.65 10^6/uL (3.85-5.65) L 09/19/24 05:21 Hgb 12.30 g/dL (11.27-16.99) 09/19/24 05:21 Hct 36.4 % (37-53) L 09/19/24 05:21 MCV 99.7 fl (82-101) 09/19/24 05:21 MCH 33.7 pg (27-33) H 09/19/24 05:21 MCHC 33.8 g/dL (30-55) 09/19/24 05:21 RDW 12.6 % (12.1-15.1) 09/19/24 05:21 Plt Count 259 10^3/cmm (157-399) 09/19/24 05:21 MPV 8.7 fL (7.4-10.4) 09/19/24 05:21 Neut % (Auto) 53.5 % 09/19/24 05:21 Lymph % (Auto) 32.0 % 09/19/24 05:21 [place] % (Auto) 7.4 % 09/19/24 05:21 Eos % (Auto) 5.5 % 09/19/24 05:21 Baso % (Auto) 0.8 % 09/19/24 05:21 Neut # (Auto) 2.75 10^3/uL (1.8-7.7) 09/19/24 05:21 Lymph # (Auto) 1.6 10^3/uL (0.8-4.8) 09/19/24 05:21 [place] # (Auto) 0.4 10^3/uL (0.2-0.9) 09/19/24 05:21 Eos # (Auto) 0.3 10^3/uL (0.0-0.8) 09/19/24 05:21 Baso # (Auto) 0.0 10^3/uL (0.0-0.1) 09/19/24 05:21 Nucleated RBC % (auto) 0 % 09/19/24 05:21 Nucleated RBCs # 0.0 /100WBC 09/19/24 05:21 ESR 12 mm/hr (0-10) H 09/18/24 05:08 Sodium 138 mmol/L (136-145) 09/19/24 05:21 Potassium 3.7 mmol/L (3.5-5.1) 09/19/24 05:21 Chloride 108 mmol/L (98-107) H 09/19/24 05:21 Carbon Dioxide 18 mmol/L (22-29) L 09/19/24 05:21 Anion Gap 15.7 (5-19) 09/19/24 05:21 BUN 5 mg/dL (6-20) L 09/19/24 05:21 Creatinine 0.7 mg/dL (0.7-1.2) 09/19/24 05:21 GFR Calculation 118.4 mL/min (90-130) 09/19/24 05:21 Glucose 95 mg/dL (65-115) 09/19/24 05:21 Calculated Osmolality 283 mOsm/kg (285-295) L 09/19/24 05:21 Lactic Acid 1.2 mmol/L (0.5-2.2) 09/16/24 11:59 Calcium 8.4 mg/dL (8.5-10.5) L 09/19/24 05:21 Magnesium 1.8 mg/dL (1.7-2.3) 09/18/24 05:08 Total Bilirubin 1.0 mg/dL (0.15-1.2) 09/16/24 08:10 AST 9 U/L (0-40) 09/16/24 08:10 ALT 7 U/L (0-41) 09/16/24 08:10 Alkaline Phosphatase 81 U/L (40-130) 09/16/24 08:10 C-Reactive Protein 11.6 mg/L (0.0-4.9) H 09/18/24 05:08 Total Protein 7.2 g/dL (6.6-8.7) 09/16/24 08:10 Albumin 3.9 g/dL (3.5-5.2) 09/16/24 08:10 Globulin 3.3 g/dL (1.3-4.6) 09/16/24 08:10 Lipase 14 U/L (13-60) 09/16/24 08:10 Urine Color [place] (Yellow) A 09/16/24 09:05 Urine Appearance Clear (CLEAR) 09/16/24 09:05 Urine pH 5.5 (5-7) 09/16/24 09:05 Ur Specific [place] 1.034 (1.005-1.030) H 09/16/24 09:05 Urine Protein 1+ (Negative) A 09/16/24 09:05 Urine Glucose (UA) Negative (Normal) 09/16/24 09:05 Urine Ketones Trace (Negative) 09/16/24 09:05 Urine Blood Trace (Negative) A 09/16/24 09:05 Urine Nitrate Negative (Negative) 09/16/24 09:05 Urine Bilirubin 1+ (Negative) H 09/16/24 09:05 Urine Urobilinogen 1.0 mg/dL (Negative) 09/16/24 09:05 Ur Leukocyte Esterase 1+ (Negative) A 09/16/24 09:05 Urine RBC 6-10 /hpf (0-2) 09/16/24 09:05 Urine WBC 0-5 /hpf (0-5) 09/16/24 09:05 Ur Squamous Epith Cells 6-10 /hpf (0-5) 09/16/24 09:05 Amorphous Sediment Not Reportable 09/16/24 09:05 Urine Bacteria None seen /hpf (NONE) 09/16/24 09:05 Hyaline Casts 1.65 /lpf 09/16/24 09:05 Vitals Last Vital Signs Temp 98.2 F 09/19/24 11:19 Pulse 65 09/19/24 11:19 Resp 17 09/19/24 11:19 BP 155/77 09/19/24 11:19 Pulse Ox 100 09/19/24 11:19 O2 Del Method Room Air 09/19/24 11:19 Discharge Plan Discharge Patient Disposition: Home Condition: Stable Prescriptions: New ciprofloxacin HCl 500 mg tablet 500 mg PO BID Qty: 20 0RF metronidazole 500 mg tablet 500 mg PO Q8H 10 Days Qty: 30 0RF Continued nitroglycerin 0.4 mg tablet, sublingual 0.4 mg sublingual Q5M PRN (Reason: chest pain) 30 Days Qty: 30 3RF Rx Instructions: until response; do not exceed 3 doses per episode buspirone 30 mg tablet 30 mg PO BID Qty: 60 2RF isosorbide mononitrate 30 mg tablet extended release 24 hr 30 mg PO DAILY Qty: 30 5RF fluoxetine 20 mg tablet 20 mg PO DAILY Qty: 60 1RF scopolamine base 1 mg over 3 days patch 3 day 1 patch transdermal Q3D PRN (Reason: motion sickness) Qty: 10 0RF pantoprazole 40 mg tablet,delayed release (DR/EC) 40 mg PO BID 30 Days Qty: 60 1RF fluticasone propion-salmeterol [Advair Diskus] 100-50 mcg/dose blister with device 1 inh INHALATION BID Qty: 60 0RF (DME) Bone Growth Stimulator See Rx Instructions .Route .MEDSUPPLY Qty: 1 0RF Rx Instructions: As directed budesonide 0.5 mg/2 mL suspension for nebulization 0.5 mg inhalation BID PRN (Reason: copd) Qty: 60 0RF clopidogrel 75 mg tablet 75 mg PO DAILY Qty: 90 0RF quetiapine [Seroquel] 50 mg tablet 50 mg PO BEDTIME Qty: 90 0RF clonazepam 2 mg tablet 2 mg PO BID PRN (Reason: Anxiety attacks) 30 Days Qty: 60 2RF hydrocodone-acetaminophen 5-325 mg tablet 1 tab PO Q12H PRN (Reason: pain) 28 Days Qty: 56 0RF tamsulosin 0.4 mg capsule 0.4 mg PO QAM Qty: 90 0RF zonisamide 100 mg capsule 200 mg PO BID Qty: 180 0RF ranolazine 500 mg tablet extended release 12 hr 500 mg PO BID Qty: 60 3RF albuterol sulfate [Ventolin HFA] 90 mcg/actuation HFA aerosol inhaler 2 puff INHALATION Q4H PRN (Reason: Shortness Of Breath) nicotine 21 mg/24 hr patch 24 hour See Rx Instructions .ROUTE .COMPLEX Rx Instructions: Apply and change one patch daily for 6 weeks. aspirin 81 mg tablet,delayed release (DR/EC) 81 mg PO QAM ondansetron 4 mg tablet,disintegrating 4 mg PO Q6H PRN (Reason: nausea and vomiting) Qty: 14 0RF atorvastatin 80 mg tablet 80 mg PO QAM Rx Instructions: TAKE 1 TABLET BY MOUTH EVERY MORNING Discontinued prednisone 20 mg tablet See Rx Instructions .ROUTE .COMPLEX Qty: 37 0RF Rx Instructions: 40 mg daily x 1 week 30 mg daily x 1 week 20 mg daily x 1 week 10 mg daily x 1 week 5 mg daily x 1 week then stop Discharge Orders: Discharge Order (Routine); Ordered 09/19/24 Ordered By: Delgado Morris Referrals: Jr Lund MD [Physician] - 09/24/24 1:20 pm (We have notified your physician's clinic of the need for a follow-up appointment to be scheduled. If you have not heard from them within the next 2 business days, please call them directly. ) Jarrell Espino MD [Primary Care Provider] - 4-7 days (We have notified your physician's clinic of the need for a follow-up appointment to be scheduled. If you have not heard from them within the next 2 business days, please call them directly. ) Discharge Diet: GI Soft Patient Instructions: Ciprofloxacin (By mouth), Metronidazole (By mouth), Colitis (ED), Opioid Safety Activity Restrictions/Additional Instructions: Complete antibiotic course as discussed, follow-up with surgery for reassessment and arrangement for endoscopy and biopsy. Follow-up with your primary doctor for reassessment of recurrent colitis, consideration of possibility of inflammatory bowel disease. As discussed, seek medical attention in case of worsening or new concerning symptoms. Discharge Attestations Time Spent in Discharge Care*: greater than 30 min Status at Discharge: Cognitive status at discharge: cognitively intact, Behavioral status at discharge: cooperative, Quality Metrics Clinical Quality Measures [ No reported AMI, CVA or VTE this stay] Coding Level of Care Code 29238 Total time (in minutes) for Discharge: 45 Diagnoses Colitis K52.9
[2024-09-19 16:24] VITALS: BP 155/77; PULSE 65; RESP 17; TEMP 36.8; O2SAT 100
== END 2024-09-19 16:00 | disposition home or self-care (01) | DRG 392 ==
LOC: ER 09:16 → ER IP 15:59 → MEDSURG 18:35 → ER IP 09-18 10:03
PROVIDERS: Admitting Provider Internal Medicine; Emergency Provider Family Medicine; PCP Family Medicine; Visit Provider Internal Medicine
DX: K52.9 Noninfective gastroenteritis and colitis, unspecified (principal); I50.22 Chronic systolic (congestive) heart failure; Z91.014 Allergy to mammalian meats; K21.9 Gastro-esophageal reflux disease without esophagitis; J44.9 Chronic obstructive pulmonary disease, unspecified; F41.1 Generalized anxiety disorder; F32.9 Major depressive disorder, single episode, unspecified; G40.909 Epilepsy, unspecified, not intractable, without status epilepticus; F17.210 Nicotine dependence, cigarettes, uncomplicated; E87.6 Hypokalemia; I25.10 Atherosclerotic heart disease of native coronary artery without angina pectoris; Z95.5 Presence of coronary angioplasty implant and graft; Z79.02 Long term (current) use of antithrombotics/antiplatelets; Z79.891 Long term (current) use of opiate analgesic; Z79.82 Long term (current) use of aspirin; I11.0 Hypertensive heart disease with heart failure; E78.2 Mixed hyperlipidemia
CPT/HCPCS: 36415; 74177; 80048; 80053; 81001; 83605; 83690; 83735; 85025; 85651; 86140; 94640; 96372; 96374; 96375; 96376; 99285; G0378; J0744; J1171; J1200; J1652; J2270; J2405; J3475; J3480; J3490; J7030; J7626

== ENCOUNTER 2024-09-29 07:29 | Observation (INO) | payer MEDICAID, SELFPAY ==
[2024-09-29] VITALS (15 sets, daily range): BP systolic 95–132; BP diastolic 53–77; PULSE 59–92; RESP 16–18; TEMP 36.4–36.8; O2SAT 92–98; BMI 25.8
[2024-09-29] MEDS: ondansetron 2 mg/ML SDV 2 mL 4 MG IVP ×2 (07:54→19:47)
[2024-09-29 08:16] LABS: Basophils # 0.1 10^3/uL (0.0-0.1); Basophils % 0.7 %; Eosinophils # 0.1 10^3/uL (0.0-0.8); Eosinophils % 0.7 %; Hematocrit 48.5 % (37-53); Lymphocytes # 1.8 10^3/uL (0.8-4.8); Lymphocytes % 12.9 %; Mean Corpuscular HGB Conc 33.4 g/dL (30-55); Mean Corpuscular Hemoglobin 32.9 pg (27-33); Mean Corpuscular Volume 98.6 fl (82-101); Mean Platelet Volume 8.7 fL (7.4-10.4); Monocytes # 0.7 10^3/uL (0.2-0.9); Monocytes % 4.9 %; Neutrophils # 10.93 10^3/uL (1.8-7.7); Neutrophils % 80.4 %; Nucleated Red Blood Cells % 0 %; Platelet Count 354 10^3/cmm (157-399); Red Blood Count 4.92 10^6/uL (3.85-5.65); White Blood Count 13.61 10^3/uL (3.29-11.43)
--- NOTE | 2024-09-29 08:46 | ECG_ITS ---
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 Measurements Intervals [place] Rate: 81 P: -29 [place]: 179 QRS: -64 QRSD: 93 T: -16 QT: 387 QTc: 450 Interpretive Statements SINUS RHYTHM WITH OCCASIONAL VENTRICULAR PREMATURE COMPLEXES INDETERMINATE AXIS LEFT ANTERIOR FASCICULAR BLOCK [QRS AXIS <= -45, QR IN I, RS IN II] MINIMAL ST DEPRESSION [0.025+ mV ST DEPRESSION] Compared to ECG 06/24/2024 14:54:40 Ventricular premature complex(es) now present Indeterminate axis now present Left anterior fascicular block now present ST (T wave) deviation now present Electronically Signed On 10-04-2024 18:17:51 BROOM BUNDLER by Can Callejas M.D. [email or web address]
--- NOTE | 2024-09-29 08:55 | W.ED.ABDPA2 ---
HPI - Abdominal Pain General: Chief Complaint: ER Hold Stated Complaint: abd pain Time Seen by Provider: 09/29/24 07:43 History of Present Illness: 53-year-old male presents emergency room with chronic abdominal pain with nausea and vomiting has been persistent. He has been seen several times recently is not getting any improvement despite using several home medications. He said problems with chronic pancreatitis in the past. Associated Symptoms: Reports diarrhea, nausea and vomiting; Denies chills, dysuria and fever(s) Related Data Home Medications ?Medication ?Instructions ?Recorded ?Confirmed albuterol sulfate 90 mcg/actuation 2 puff inhalation Q4H PRN 08/24/24 10/02/24 aerosol inhaler (Ventolin HFA) Shortness Of Breath aspirin 81 mg tablet,delayed 81 mg PO QAM 08/24/24 10/02/24 release nicotine 21 mg/24 hr daily See Rx Instructions .Route .COMPLEX 08/24/24 10/02/24 transdermal patch atorvastatin 80 mg tablet 80 mg PO QAM 09/16/24 10/02/24 prochlorperazine maleate 10 mg 10 mg PO Q6H PRN nausea/emesis 09/29/24 10/02/24 tablet Previous Rx's ?Medication ?Instructions ?Recorded Bone Growth Stimulator #1 ea 01/04/24 fluticasone 100 mcg-salmeterol 50 1 inh inhalation BID #60 ea 02/05/24 mcg/dose blistr powdr for inhalation (Advair Diskus) nitroglycerin 0.4 mg sublingual 0.4 mg sublingual Q5M PRN chest 02/06/24 tablet pain 30 days #30 tabs isosorbide mononitrate 30 mg 30 mg PO DAILY #30 tabs 06/24/24 tablet,extended release 24 hr buspirone 30 mg tablet 30 mg PO BID #60 tabs 07/09/24 ranolazine 500 mg tablet,extended 500 mg PO BID #60 tabs 07/15/24 release,12 hr budesonide 0.5 mg/2 mL suspension 0.5 mg (2 mL) inhalation BID PRN 07/28/24 for nebulization copd #60 mL clopidogrel 75 mg tablet 75 mg PO DAILY #90 tabs 07/28/24 quetiapine 50 mg tablet (Seroquel) 50 mg PO BEDTIME #90 tabs 07/28/24 fluoxetine 20 mg tablet 20 mg PO DAILY #60 tabs 08/18/24 clonazepam 2 mg tablet 2 mg PO BID PRN Anxiety attacks 30 08/25/24 days #60 tabs tamsulosin 0.4 mg capsule 0.4 mg PO QAM #90 caps 09/02/24 zonisamide 100 mg capsule 200 mg (2 x 100 mg) PO BID #180 09/03/24 caps ondansetron 4 mg disintegrating 4 mg PO Q6H PRN nausea and 09/04/24 tablet vomiting #14 tabs pantoprazole 40 mg tablet,delayed 40 mg PO BID 30 days #60 tabs 09/05/24 release scopolamine base 1 mg over 3 days 1 patch transdermal Q3D PRN motion 09/05/24 transdermal patch sickness #10 ea hydrocodone 5 mg-acetaminophen 325 1 tab PO Q12H PRN pain 28 days #56 09/25/24 mg tablet tabs ciprofloxacin HCl 500 mg tablet 500 mg PO BID #10 tabs 09/30/24 metronidazole 500 mg tablet 500 mg PO Q8H 5 days #0 tabs 09/30/24 Allergies Allergy/AdvReac Type Severity Reaction Status Date / Time meperidine (From Demerol) Allergy Severe ALGY-Hives Verified 10/02/24 13:32 Alpha-Gal Allergy upset GI Verified 10/02/24 13:32 (Gskxxndpm-Isdof-4,3-Gala (Ahuiizlwa-Gzkrd-8,3-Galactose (Alph) gabapentin AdvReac Severe ADR-Seizure Verified 10/02/24 13:32 morphine AdvReac Severe ALGY-Hives Verified 10/02/24 13:32 tramadol AdvReac Severe ADR-Seizure Verified 10/02/24 13:32 Review of Systems Const: Denies: fever(s) or chills Card: Denies: chest pain Resp: Denies: dyspnea GI: Reports: abdominal pain, nausea, vomiting and diarrhea : Denies: dysuria, urinary frequency or urinary urgency Musc: Denies: neck pain or back pain Skin/Breast: Denies: rash PFSH ED PFSH: Medical History History of cardiovascular stress test 02/2024 Jejunitis hx in 07/2024 Chronic pancreatitis Panic attacks NSTEMI (non-ST elevated myocardial infarction) CAD (coronary artery disease) Cath 06/2024 30-40% stenosis in previously treated segment of RCA Colitis Direct inguinal hernia of right side COVID-19 (~04/2023) Moderate major depression Generalized anxiety disorder Alpha-gal syndrome Heart failure with mildly reduced ejection fraction (HFmrEF) Chronic abdominal pain Hyponatremia H. pylori duodenitis Elevated glucose Anxiety and depression Alpha galactosidase deficiency C. difficile colitis Medical marijuana use Diverticulosis seen in colonoscopy in 2023 GERD (gastroesophageal reflux disease) Urethral stricture COPD (chronic obstructive pulmonary disease) Essential (primary) hypertension Seizure disorder Mixed hyperlipidemia Osteoarthritis rt knee, cervical and Lumbar spine Surgical History History of cardiac catheterization 06/2024 - multiple prior PCIs, LM no sig stenosis, LAD minimal in-stent narrowing mid segment, LCx no severe lesions, Patent stented RCA with 30-40% jaqueline-stent stenosis. Recs: Medical therapy Status post lumbar spinal fusion L5/S1 & L4/L5 fusion, Dr Da Silva History of esophagogastroduodenoscopy (EGD) 2021. Showing esophagitis, gastritis, and duodenitis with + H.pylori biopsies History of back surgery Status post right knee replacement Hx of reconstruction of anterior cruciate ligament tear H/O neck surgery H/O left knee surgery History of appendectomy History of cholecystectomy H/O right knee surgery arthroscopic R lateral meniscetomy, chrondroplasty H/O chest tube placement H/O removal of testicle Stented coronary artery Family History Brother Parkinson disease Cancer Diabetes Stroke Bone cancer Family/Other Cancer Chronic kidney disease (CKD) Suicide Esophageal cancer Lung cancer Grandmother CAD (coronary artery disease) Cancer Lung disease Grandfather Dementia Mother Lung disease Father Suicide Other Colitis Denies family history of Clotting disorder Anesthesia complication Bleeding disorder Social History Smoking and tobacco/nicotine status: former use of tobacco/nicotine Quit status (tobacco/nicotine): has tried quititng Alcohol intake: never Substance/Drug Use: current Substance/Drug use frequency: daily Other substance/drug use details: medical card Lives independently: Yes Household members: significant other service: No Current occupational status: disabled Current occupational exposures/hazards: Yes Do you think of yourself as: Straight/Heterosexual Current gender identity: Male Physical Exam Const: GENERAL APPEARANCE: cooperative ORIENTATION/CONSCIOUSNESS: Yes awake, Yes oriented to person, Yes oriented to place and Yes oriented to time HENMT: COMMON NORMALS: normocephalic, atraumatic and hearing grossly normal bilaterally HEAD & SCALP: normocephalic and atraumatic Resp: COMMON NORMALS: normal respiratory effort, No retractions, No use of accessory muscles and clear to auscultation bilaterally AUSCULTATION: clear to auscultation bilaterally Cardio: COMMON NORMALS: regular rate, regular rhythm and No murmurs present (Cardio) RATE: regular rate RHYTHM: regular rhythm GI: AUSCULTATION: Yes Hypoactive bowel sounds present PALPATION: Yes Tenderness to palpation present (GI) and No Guarding due to palpation present (GI) Extremity: COMMON NORMALS: normal to inspection, capillary refill normal, no clubbing, cyanosis or edema, no calf tenderness and no pedal edema Neuro: SENSORIUM/ORIENTATION: Yes oriented to person, Yes oriented to place and Yes oriented to time Skin: COMMON NORMALS: no rashes or lesions noted GENERAL SKIN EXAM: no rashes or lesions noted Course Vital Signs: Vital signs: Vital Signs Temperature 97.5 F L 09/30/24 08:00 Pulse Rate 67 09/30/24 08:00 Respiratory Rate 17 09/30/24 08:00 Blood Pressure 107/68 09/30/24 08:00 Pulse Oximetry 99 09/30/24 08:00 Oxygen Delivery Me thod Room Air 09/30/24 08:00 MDM - Abdominal Pain Medical Decision Making Despite multiple rounds of pain and nausea medication as patient has persistent nausea and vomiting will admit for his persistent nausea vomiting. CT did not show anything acute. She continuing to have abdominal pain as well discussed with hospitalist orders written for observation Medical Records I reviewed the patient's medical records. Lab Data I reviewed the patient's lab results. 09/30/24 05:22 09/30/24 05:22 Labs/Radiology: Radiology Impressions Abdomen/Pelvis CT 09/29/24 10:33 IMPRESSION: 1. No renal obstruction or ureteral obstruction. 2. Prior appendectomy. 3. Mild sigmoid diverticulosis. No evidence for an acute diverticulitis at this time. 4. No free fluid in the pelvis. 5. Moderate plaque abdominal aorta and iliac arteries. 6. Prior cholecystectomy. Laboratory Results WBC 13.61 10^3/uL (3.29-11.43) H 09/29/24 08:09 RBC 4.92 10^6/uL (3.85-5.65) 09/29/24 08:09 Hgb 16.20 g/dL (11.27-16.99) 09/29/24 08:09 Hct 48.5 % (37-53) 09/29/24 08:09 MCV 98.6 fl (82-101) 09/29/24 08:09 MCH 32.9 pg (27-33) 09/29/24 08:09 MCHC 33.4 g/dL (30-55) 09/29/24 08:09 RDW 13.0 % (12.1-15.1) 09/29/24 08:09 Plt Count 354 10^3/cmm (157-399) 09/29/24 08:09 MPV 8.7 fL (7.4-10.4) 09/29/24 08:09 Neut % (Auto) 80.4 % 09/29/24 08:09 Lymph % (Auto) 12.9 % 09/29/24 08:09 [place] % (Auto) 4.9 % 09/29/24 08:09 Eos % (Auto) 0.7 % 09/29/24 08:09 Baso % (Auto) 0.7 % 09/29/24 08:09 Neut # (Auto) 10.93 10^3/uL (1.8-7.7) H 09/29/24 08:09 Lymph # (Auto) 1.8 10^3/uL (0.8-4.8) 09/29/24 08:09 [place] # (Auto) 0.7 10^3/uL (0.2-0.9) 09/29/24 08:09 Eos # (Auto) 0.1 10^3/uL (0.0-0.8) 09/29/24 08:09 Baso # (Auto) 0.1 10^3/uL (0.0-0.1) 09/29/24 08:09 Nucleated RBC % (auto) 0 % 09/29/24 08:09 Nucleated RBCs # 0.0 /100WBC 09/29/24 08:09 Sodium 137 mmol/L (136-145) 09/29/24 09:29 Potassium 3.1 mmol/L (3.5-5.1) L 09/29/24 09:29 Chloride 105 mmol/L (98-107) 09/29/24 09:29 Carbon Dioxide 19 mmol/L (22-29) L 09/29/24 09:29 Anion Gap 16.1 (5-19) 09/29/24 09:29 BUN 13 mg/dL (6-20) 09/29/24 09:29 Creatinine 1.0 mg/dL (0.7-1.2) 09/29/24 09:29 GFR Calculation 78.5 mL/min (90-130) L 09/29/24 09:29 Glucose 117 mg/dL (65-115) H 09/29/24 09:29 Calculated Osmolality 285 mOsm/kg (285-295) 09/29/24 09:29 Calcium 9.2 mg/dL (8.5-10.5) 09/29/24 09:29 Total Bilirubin 0.6 mg/dL (0.15-1.2) 09/29/24 09:29 AST 36 U/L (0-40) 09/29/24 09:29 ALT 16 U/L (0-41) 09/29/24 09:29 Alkaline Phosphatase 66 U/L (40-130) 09/29/24 09:29 Total Protein 6.7 g/dL (6.6-8.7) 09/29/24 09:29 Albumin 3.8 g/dL (3.5-5.2) 09/29/24 09:29 Globulin 2.9 g/dL (1.3-4.6) 09/29/24 09:29 Lipase 21 U/L (13-60) 09/29/24 09:29 Urine Color Gem (Yellow) A 09/29/24 09:23 Urine Appearance Cloudy (CLEAR) A 09/29/24 09:23 Urine pH 5.5 (5-7) 09/29/24 09:23 Ur Specific [place] 1.032 (1.005-1.030) H 09/29/24 09:23 Urine Protein 2+ (Negative) A 09/29/24 09:23 Urine Glucose (UA) Negative (Normal) 09/29/24 09:23 Urine Ketones Trace (Negative) 09/29/24 09:23 Urine Blood 1+ (Negative) A 09/29/24 09:23 Urine Nitrate Positive (Negative) A 09/29/24 09:23 Urine Bilirubin 1+ (Negative) H 09/29/24 09:23 Urine Urobilinogen 0.2 mg/dL (Negative) 09/29/24 09:23 Ur Leukocyte Esterase 1+ (Negative) A 09/29/24 09:23 Urine RBC 5-10 /hpf (0-2) H 09/29/24 09:23 Urine WBC 5-10 /hpf (0-5) H 09/29/24 09:23 Ur Squamous Epith Cells 21-50 /hpf (0-5) H 09/29/24 09:23 Amorphous Sediment Not Reportable 09/29/24 09:23 Urine Bacteria 1+ /hpf (NONE) H 09/29/24 09:23 All radiology interpretation(s) finalized by discharge Discharge Plan Discharge Patient Disposition: Admitted As Inpatient Admit Provider: Kami Landry Clinical Impression: Nausea & vomiting, Chronic diarrhea, Chronic abdominal pain, Essential (primary) hypertension, Chronic pancreatitis Condition: Stable Discharge Diet: Advance as tolerated Coding Level of Care Code ED [employer] for [employer] [place]
[2024-09-29] MEDS: sodium chloride 0.9% 1,000 ML 999 ML IV (09:23)
[2024-09-29] MEDS: methylPREDNISolone sod succ 125 mg/2 mL INJ IVP (09:31)
[2024-09-29] MEDS: ketorolac 30 mg/mL INJ IVP (09:33)
[2024-09-29] MEDS: prochlorperazine 10 mg/2 mL Inj IVP ×2 (09:34→19:43)
[2024-09-29 09:56] LABS: Alanine Aminotransferase 16 U/L (0-41); Albumin Level 3.8 g/dL (3.5-5.2); Alkaline Phosphatase 66 U/L (40-130); Anion Gap 16.1 (5-19); Aspartate Amino Transferase 36 U/L (0-40); Blood Urea Nitrogen 13 mg/dL (6-20); Calcium 9.2 mg/dL (8.5-10.5); Carbon Dioxide 19 mmol/L (22-29); Chloride 105 mmol/L (98-107); Creatinine Clr Calc Pharmacy 82.2678; Globulin 2.9 g/dL (1.3-4.6); Glomerular Filtration Rate 78.5 mL/min (90-130); Glucose 117 mg/dL (65-115); Lipase 21 U/L (13-60); Osmolality Calculated 285 mOsm/kg (285-295); Potassium 3.1 mmol/L (3.5-5.1); Sodium 137 mmol/L (136-145); Total Bilirubin 0.6 mg/dL (0.15-1.2); Total Protein 6.7 g/dL (6.6-8.7)
[2024-09-29 09:58] LABS: Bilirubin Urine 1+ (Negative); Blood Urine 1+ (Negative); Glucose Urine UA Negative (Normal); Ketones Urine Trace (Negative); Leukocyte Esterase Urine 1+ (Negative); Nitrate Urine Positive (Negative); Protein Urine 2+ (Negative); Urine Appearance Cloudy (CLEAR); Urobilinogen Urine 0.2 mg/dL (Negative); pH Urine 5.5 (5-7)
[2024-09-29 10:13] LABS: Specific Gravity, Urine 1.032 (1.005-1.030); UA Manual Slide Review YES; Urine Color Orange (Yellow)
[2024-09-29 10:14] LABS: Add Urine Culture? No; Add Urine Microscopic? YES; Bacteria Urine 1+ /hpf; Squamous Epithelial Cell Urine 21-50 /hpf (0-5)
--- NOTE | 2024-09-29 10:33 | CT_ITS ---
WS: [id number] CT ABDOMEN AND PELVIS NONCONTRAST HISTORY: flank pain, RIGHT for 3 weeks. TECHNIQUE: Imaging performed through the abdomen and pelvis. Coronal and sagittal reformats are submitted. All CT scans at [facility] use at least one of these dose optimization techniques: automated exposure control; mA and/or kV adjustment per patient size (includes targeted exams where dose is matched to clinical indication); or iterative reconstruction. DLP: 455.06 mGy.cm COMPARISON: 09/16/2024 Lower thorax: Emphysema, no pneumonia. Normal size heart. Liver: Normal size liver. Decreased attenuation along the falciform ligament. Gallbladder: Prior cholecystectomy. CBD at 8 mm. Pancreas: Normal size and attenuation. Normal pancreatic duct. No pancreatitis or mass. Spleen: Normal. Adrenal glands: Normal. No mass. Right kidney: Low-attenuation masses associated with the kidney noted to be cysts on prior imaging studies. No obstruction of the kidney. Left kidney: No obstruction. Small cortical hypodensities have been previously described as cysts. Nonobstructing calcification lower pole. Aorta: Moderate atherosclerosis abdominal aorta with no aneurysm. Calcification continues into the iliac arteries. No free fluid, intraperitoneal air or significant lymphadenopathy. GI tract: Prior appendectomy. No GI tract obstruction. Mild sigmoid diverticulosis. Abdominal wall: Negative. No hernia. Pelvis: No free fluid or adenopathy. Minimally distended urinary bladder. Osseous structures: Posterior lumbar fusion from L4-S1. Interbody disc spacers at L4-5 and L5-S1. CT/CT kidney stone [id number] IMPRESSION: 1. No renal obstruction or ureteral obstruction. 2. Prior appendectomy. 3. Mild sigmoid diverticulosis. No evidence for an acute diverticulitis at thi s time. 4. No free fluid in the pelvis. 5. Moderate plaque abdominal aorta and iliac arteries. 6. Prior cholecystectomy.
[2024-09-29] MEDS: morphine 4 mg/mL SDV 1 mL IVP ×2 (10:49→19:43)
[2024-09-29] MEDS: diphenhydrAMINE 50 mg/mL SDV 1mL IVP (10:49)
--- NOTE | 2024-09-29 16:01 | P.HP_ITS ---
Providers/Chief Complaint 2 Admitting Physician: Kami Landry MD Primary Care Provider: Jarrell Espino MD Chief Complaint: abd pain History of Present Illness [place] Jack Cheng is a 53 year old male with a complex medical history involving chronic pancreatitis and recurrent episodes of diarrhea among other diagnoses listed below. He has a history inflammatory changes in the abdomen and has been hospitalized multiple times this year for abdominal pain and diarrhea. In July, he was diagnosed with jejunitis and treated with antibiotics, followed by outpatient follow-up with a GI specialist. There was concern about Crohn's disease, and he was managed with steroids and antibiotics. In August, he was hospitalized again with colitis, treated with antibiotics, and showed clinical improvement. A colonoscopy in September 2020 showed mild diffuse inflammation from the proximal descending colon to the rectum. He recently had a follow-up outpatient colonoscopy that did not show any abnormalities per his report. The patient reports current episode of abdominal pain starting three weeks ago, 2 to 3 days after hospital discharge, with pain radiating from the groin area where he has a hernia into the upper part of his abdomen. He experiences sharp pain and nausea, lack of appetite. He has not vomited since being in the hospital but reports loose stools continue. He does have a history of C. difficile in the past and has been on several courses of antibiotics. Stool volume overall however has decreased from what it was earlier in the year. In the emergency room he was noted to have an elevated white count of 17,000 and blood pressures lower than what he usually presents with in the 90s systolic. He received steroids in the emergency room and request was made for admission for overnight monitoring. He has required several doses of pain medications and nausea medicines in the ER. Review of Systems 2 General: Reports: Other (ROS as per HPI or as otherwise noted here) Const: Reports: change in appetite, change in weight (reports weight loss over unclear time frame; stable iin EMR since mid 2023) and malaise; Denies: fever(s) ENMT: Denies: throat pain or nasal congestion Card: Denies: chest pain, palpitations or dyspnea on exertion Resp: Denies: dyspnea or productive cough GI: Reports: abdominal pain, nausea, dysphagia (pills sometimes), diarrhea and bloating; Denies: vomiting, constipation, belching, excessive flatus, change in stool character or hematochezia : Denies: difficulty urinating Musc: Reports: back pain (right sided) Neuro: Reports: difficulty walking (early in the day from back stiffness/pain); Denies: numbness in extremities or weakness in extremities Trevon/Lymph: Denies: easy bruising or easy bleeding Medications/Allergies Home Medications ?Medication ?Instructions ?Recorded ?Confirmed ?Last Taken ?Type Bone Growth Stimulator #1 ea 01/04/24 09/29/2406/29 05:15 Rx fluticasone 100 mcg-salmeterol 50 1 inh inhalation BID #60 ea 02/05/24 09/29/24 09/27/24 Rx mcg/dose blistr powdr for inhalation (Advair Diskus) nitroglycerin 0.4 mg sublingual 0.4 mg sublingual Q5M PRN chest 02/06/24 09/29/24 Unknown Rx tablet pain 30 days #30 tabs isosorbide mononitrate 30 mg 30 mg PO DAILY #30 tabs 1 08/24/23 09/29/24 09/27/24 Rx tablet,extended release 24 hr buspirone 30 mg tablet 30 mg PO BID #60 tabs 09/29/24 09/27/24 Rx ranolazine 500 mg tablet,extended 500 mg PO BID #60 ta bs 07/15/24 09/29/24 09/27/24 Rx release,12 hr budesonide 0.5 mg/2 mL suspension 0.5 mg (2 mL) inhala tion BID PRN 07/28/24 09/29/24 Unknown Rx for nebulization copd #60 mL clopidogrel 75 mg tablet 75 mg PO DAILY #90 tabs 07/0109/29/24 09/27/24 Rx quetiapine 50 mg tablet (Seroquel) 50 mg PO BEDTIME #9 0 tabs 07/28/24 09/29/24 09/27/24 Rx fluoxetine 20 mg tablet 20 mg PO DAILY #60 tabs 07/3109/29/24 09/27/24 Rx albuterol sulfate 90 mcg/actuation 2 puff inhalation Q 4H PRN 08/24/24 09/29/24 Unknown History aerosol inhaler (Ventolin HFA) Shortness Of Breath aspirin 81 mg tablet,delayed 81 mg PO QAM 08/24/2410/21/25 History release nicotine 21 mg/24 hr daily See Rx Instructions .Route .COMPLEX 08/24/24 09/29/24 09/27/24 History transdermal patch clonazepam 2 mg tablet 2 mg PO BID PRN Anxiety ravin cks 30 08/25/24 09/29/24 Unknown Rx days #60 tabs tamsulosin 0.4 mg capsule 0.4 mg PO QAM #90 caps 09/0209/29/24 09/27/24 Rx zonisamide 100 mg capsule 200 mg (2 x 100 mg) PO BID # 180 09/03/24 09/29/24 09/27/24 Rx caps ondansetron 4 mg disintegrating 4 mg PO Q6H PRN nausea and 09/04/24 09/29/24 Unknown Rx tablet vomiting #14 tabs pantoprazole 40 mg tablet,delayed 40 mg PO BID 30 days #60 tabs 09/05/24 09/29/24 09/27/24 Rx release scopolamine base 1 mg over 3 days 1 patch transdermal Q3D PRN motion 09/05/24 09/29/24 Unknown Rx transdermal patch sickness #10 ea atorvastatin 80 mg tablet 80 mg PO QAM 09/16/2409/27/24 History ciprofloxacin HCl 500 mg tablet 500 mg PO BID #20 tabs 09/19/24 09/29/24 09/27/24 Rx hydrocodone 5 mg-acetaminophen 325 1 tab PO Q12H PRN p ain 28 days #56 09/25/24 09/29/24 Unknown Rx mg tablet tabs metronidazole 500 mg tablet 500 mg PO Q8H 09/29/2410/2109/27/24 History prochlorperazine maleate 10 mg 10 mg PO Q6H PRN nausea /emesis 09/29/24 09/29/24 Unknown History tablet Allergies Allergy/AdvReac Type Severity Reaction Status Date / Time meperidine (From Demerol) Allergy Severe ALGY-Hives Verified 09/11/24 14:05 Alpha-Gal Allergy upset GI Verified 09/11/24 14:05 (Zcmrowwir-Nxihf-1,3-Gala (Qndkntxlv-Ohbwy-2,3-Galactose (Alph) gabapentin AdvReac Severe ADR-Seizure Verified 09/11/24 14:05 morphine AdvReac Severe ALGY-Hives Verified 09/11/24 14:05 tramadol AdvReac Severe ADR-Seizure Verified 09/11/24 14:05 PFSH Acute 2 PFSH: Medical History (Updated 09/29/24 @ 22:33 by Kami Landry MD) History of cardiovascular stress test 02/2024 Jejunitis hx in 07/2024 Chronic pancreatitis Panic attacks NSTEMI (non-ST elevated myocardial infarction) CAD (coronary artery disease) Cath 06/2024 30-40% stenosis in previously treated segment of RCA Colitis Direct inguinal hernia of right side COVID-19 (~04/2023) Moderate major depression Generalized anxiety disorder Alpha-gal syndrome Heart failure with mildly reduced ejection fraction (HFmrEF) Chronic abdominal pain Hyponatremia H. pylori duodenitis Elevated glucose Anxiety and depression Alpha galactosidase deficiency C. difficile colitis Medical marijuana use Diverticulosis seen in colonoscopy in 2023 GERD (gastroesophageal reflux disease) Urethral stricture COPD (chronic obstructive pulmonary disease) Essential (primary) hypertension Seizure disorder Mixed hyperlipidemia Osteoarthritis rt knee, cervical and Lumbar spine Surgical History (Updated 09/29/24 @ 18:15 by Kami Landry MD) History of cardiac catheterization 06/2024 - multiple prior PCIs, LM no sig stenosis, LAD minimal in-stent narrowing mid segment, LCx no severe lesions, Patent stented RCA with 30-40% jaqueline-stent stenosis. Recs: Medical therapy Status post lumbar spinal fusion L5/S1 & L4/L5 fusion, Dr Da Silva History of esophagogastroduodenoscopy (EGD) 2021. Showing esophagitis, gastritis, and duodenitis with + H.pylori biopsies History of back surgery Status post right knee replacement Hx of reconstruction of anterior cruciate ligament tear H/O neck surgery H/O left knee surgery History of appendectomy History of cholecystectomy H/O right knee surgery arthroscopic R lateral meniscetomy, chrondroplasty H/O chest tube placement H/O removal of testicle Stented coronary artery Family History (Updated 09/29/24 @ 22:04 by Kami Landry MD) Brother Parkinson disease Cancer Diabetes Stroke Bone cancer Family/Other Cancer Chronic kidney disease (CKD) Suicide Esophageal cancer Lung cancer Grandmother CAD (coronary artery disease) Cancer Lung disease Grandfather Dementia Mother Lung disease Father Suicide Other Colitis Denies family history of Clotting disorder Anesthesia complication Bleeding disorder Social History (Updated 09/29/24 @ 22:09 by Kami Landry MD) Smoking and tobacco/nicotine status: current every day tobacco/nicotine user cigarettes [ Other cigarette details: 1cig, 40PY] Quit status (tobacco/nicotine): has tried quititng Alcohol intake: never Substance/Drug Use: current Substance/Drug use frequency: daily Substance/Drug use type: Marijuana Other substance/drug use details: medical card Lives independently: Yes Household members: significant other service: No Current occupational status: disabled Current occupational exposures/hazards: Yes Do you think of yourself as: Straight/Heterosexual Current gender identity: Male Vitals/I&O/Wt Last Vital Signs Temp 97.5 F L 09/29/24 07:37 Pulse 59 L 09/29/24 12:36 Resp 16 09/29/24 11:03 BP 95/53 09/29/24 12:36 Pulse Ox 95 09/29/24 12:36 O2 Del Method Room Air 09/29/24 11:03 09/29/24 09/29/24 09/29/24 06:59 14:59 22:59 Intake Total 1000 / 1000 Balance 1000 / 1000 Weight last 48 hrs Weight 72.575 kg Physical Exam 2 Narrative: Patient is [] Data 09/29/24 08:09 09/29/24 09:29 Other Labs: Radiology Impressions Abdomen/Pelvis CT 09/29/24 10:33 IMPRESSION: 1. No renal obstruction or ureteral obstruction. 2. Prior appendectomy. 3. Mild sigmoid diverticulosis. No evidence for an acute diverticulitis at this time. 4. No free fluid in the pelvis. 5. Moderate plaque abdominal aorta and iliac arteries. 6. Prior cholecystectomy. Laboratory Results WBC 13.61 10^3/uL (3.29-11.43) H 09/29/24 08:09 RBC 4.92 10^6/uL (3.85-5.65) 09/29/24 08:09 Hgb 16.20 g/dL (11.27-16.99) 09/29/24 08:09 Hct 48.5 % (37-53) 09/29/24 08:09 MCV 98.6 fl (82-101) 09/29/24 08:09 MCH 32.9 pg (27-33) 09/29/24 08:09 MCHC 33.4 g/dL (30-55) 09/29/24 08:09 RDW 13.0 % (12.1-15.1) 09/29/24 08:09 Plt Count 354 10^3/cmm (157-399) 09/29/24 08:09 MPV 8.7 fL (7.4-10.4) 09/29/24 08:09 Neut % (Auto) 80.4 % 09/29/24 08:09 Lymph % (Auto) 12.9 % 09/29/24 08:09 Sullivan % (Auto) 4.9 % 09/29/24 08:09 Eos % (Auto) 0.7 % 09/29/24 08:09 Baso % (Auto) 0.7 % 09/29/24 08:09 Neut # (Auto) 10.93 10^3/uL (1.8-7.7) H 09/29/24 08:09 Lymph # (Auto) 1.8 10^3/uL (0.8-4.8) 09/29/24 08:09 Sullivan # (Auto) 0.7 10^3/uL (0.2-0.9) 09/29/24 08:09 Eos # (Auto) 0.1 10^3/uL (0.0-0.8) 09/29/24 08:09 Baso # (Auto) 0.1 10^3/uL (0.0-0.1) 09/29/24 08:09 Nucleated RBC % (auto) 0 % 09/29/24 08:09 Nucleated RBCs # 0.0 /100WBC 09/29/24 08:09 Sodium 137 mmol/L (136-145) 09/29/24 09:29 Potassium 3.1 mmol/L (3.5-5.1) L 09/29/24 09:29 Chloride 105 mmol/L (98-107) 09/29/24 09:29 Carbon Dioxide 19 mmol/L (22-29) L 09/29/24 09:29 Anion Gap 16.1 (5-19) 09/29/24 09:29 BUN 13 mg/dL (6-20) 09/29/24 09:29 Creatinine 1.0 mg/dL (0.7-1.2) 09/29/24 09:29 GFR Calculation 78.5 mL/min (90-130) L 09/29/24 09: Glucose 117 mg/dL (65-115) H 09/29/24 09: Calculated Osmolality 285 mOsm/kg (285-295) 09/29/24 09: Calcium 9.2 mg/dL (8.5-10.5) 09/29/24 09: Total Bilirubin 0.6 mg/dL (0.15-1.2) 09/29/24 09: AST 36 U/L (0-40) 09/29/24 09: ALT 16 U/L (0-41) 09/29/24 09: Alkaline Phosphatase 66 U/L (40-130) 09/29/24 09: Total Protein 6.7 g/dL (6.6-8.7) 09/29/24 09: Albumin 3.8 g/dL (3.5-5.2) 09/29/24: Globulin 2.9 g/dL (1.3-4.6) 09/29/24 09: Lipase 21 U/L (13-60) 09/29/24 09: Urine Color [place] (Yellow) A 09/29/24 09: Urine Appearance Cloudy (CLEAR) A 09/29/24 09: Urine pH 5.5 (5-7) 09/29/24 09:23 Ur Specific [place] 1.032 (1.005-1.030) H 09/29/24 09:23 Urine Protein 2+ (Negative) A 09/29/24 09: Urine Glucose (UA) Negative (Normal) 09/29/24 09: Urine Ketones Trace (Negative) 09/29/24 09: Urine Blood 1+ (Negative) A 09/29/24 09: Urine Nitrate Positive (Negative) A 09/29/24 09: Urine Bilirubin 1+ (Negative) H 09/29/24 09: Urine Urobilinogen 0.2 mg/dL (Negative) 09/29/24 09:23 Ur Leukocyte Esterase 1+ (Negative) A 09/29/24 09:23 Urine RBC 5-10 /hpf (0-2) H 09/29/24 09:23 Urine WBC 5-10 /hpf (0-5) H 09/29/24 09:23 Ur Squamous Epith Cells 21-50 /hpf (0-5) H 09/29/24 09:23 Amorphous Sediment Not Reportable 09/29/24 09:23 Urine Bacteria 1+ /hpf (NONE) H 09/29/24 09:23 Other data: [facility] Findings: Multiple medium-mouthed and small-mouthed diverticula were found in the sigmoid colon and descending colon. There was no evidence of diverticular bleeding. Non-bleeding internal hemorrhoids were found. The hemorrhoids were Grade I (internal hemorrhoids that do not prolapse). The entire examined colon mucosa otherwise appeared normal. Biopsies for histology were taken with a cold forceps from the right colon and left colon for evaluation of microscopic colitis. The terminal ileum appeared normal. Impression: - Diverticulosis in the sigmoid colon and in the descending colon. There was no evidence of diverticular bleeding. - Non-bleeding internal hemorrhoids. - Otherwise he entire examined colon is normal. Biopsied. - The examined portion of the ileum was normal. Recommendation: -Await pathology -Low fodmap diet -Daily soluble fiber -Additional stool studies Hemanth Salmeron MD 04/04/2024 7:53:37 AM Pathology No histologic abnormalities A&P Assessment and plan (1) Acute abdominal pain: In a patient with a history of chronic abdominal pain. Symptoms are associated with elevation in white count and borderline though still normal blood pressures. This is his third hospitalization this year with similar presentation. In July he was managed with antibiotics and steroids given concern for Crohn's disease with jejunal inflammation. In August he was managed with antibiotics, Cipro and Flagyl, for descending colon inflammation. Impression has been inflammatory bowel disease however he reports that he had colonoscopy recently and results did not show any significant abnormalities suggesting this. I was able to find the colonoscopy report revealing diverticular changes only and pathology reports showing no histopathological abnormalities . CT imaging today does not show obvious inflammatory changes though was without contrast due to suspicion for kidney stone. No pancreatic abnormalities were identified either. One item in differential that should also be considered is bowel ischemia particularly with areas of different involvement and lack of inflammatory findings on the colonoscopy he had. Evaluating pain is difficult given chronic pain underlying. - Status post 1 dose of steroids in the emergency room today; at this point in time have not continued though could consider - Will continue antibiotics with cipro and flagyl - If have loose enough stools will send for c diff - Pain management - Antiemetics - Check lactic acid - Monitor for worsening (2) COPD (chronic obstructive pulmonary disease): Not acute. Chronically on albuterol, budesonide and fluticasone/salmeterol - DuoNebs and budesonide ordered Qualifiers: COPD type: emphysema Emphysema type: panlobular Qualified Code(s): J 43.1 - Panlobular emphysema (3) Seizure disorder: Chronically on zonisamide and also clonazepam - Continuing home medications (4) Generalized anxiety disorder: Chronically on BuSpar and clonazepam - Continuing home medications (5) Moderate major depression: Chronically on fluoxetine and Seroquel at bedtime - Continuing home medications (6) Essential (primary) hypertension: Chronically on isosorbide mononitrate - Holding currently due to borderline blood pressures (7) Heart failure with mildly reduced ejection fraction (HFmrEF): Not on chronic diuretic therapy - Monitor for signs of volume overload with fluid administration (8) Atherosclerotic heart disease of redding coronary artery with other forms of angina pectoris: Has a history of coronary artery disease. Cardiac catheterization was done in June 2024. Chronically on aspirin, Plavix, statin, as needed nitroglycerin, ranolazine and isosorbide mononitrate - Continuing home meds and monitoring for new symptoms (9) Mixed hyperlipidemia: Chronically on statin therapy - Continue home atorvastatin (10) Osteoarthritis: Chronically on as needed hydrocodone predominantly for back pain which is chronic, has had previous back surgery. - Hydrocodone orally, try to avoid IV narcotics if able, for chronic pain management Qualifiers: Osteoarthritis location: multiple joints Osteoarthritis type: primary Qualified Code(s): M15.0 - Primary generalized (osteo)arthritis Plan - Right inguinal hernia in need of repair, has seen Dr. Mcgovern - Prostatic hypertrophy on chronic tamsulosin - Chronically on PPI, and has prescriptions for both Zofran and Compazine for nausea, continue - Elevated blood sugar without known history of diabetes, feel secondary to steroids, A1c 07/2024 5.3 Observation admission Repeat electrolytes this afternoon along with lactic acid Care as noted VTE prophylaxis: Aritra due to alpha-gal diagnosis GI Prophylaxis: PPI Antibiotics: Cipro and Flagyl (continued from outpatient covereage at this time) Pending studies: Repeat lytes and lactic acid, blood cultures not done as already on antibiotics, Telemetry: Ordered due to potential for acute clinical decline [place]: not currently indicated Line(s): peripheral IVs Disposition plan: Home with outpatient follow up to primary care and surgery anticipated. Has apppointments with PCP in 10/13 and 10/23. Scheduled with Dr López 10/01 for f/u of hospital stays and Dr Mcgovern in October for hernia in heed of repair. Has not had an EGD and is concerned currently given cousin with esophageal cancer. Code Status: Full Code Supportive care otherwise Findings, concerns and plans were discussed with patient and he was given an opportunity to ask questions and voice concerns. PDMP PDMP Reviewed: Last Reviewed 09/29/24 19:17 by Kami Landry MD Attestations 2 Medical Necessity Statement*: Currently anticipate a stay less than two midnights in this gentleman with a history of chronic abdominal pain and diarrhea presenting with similar symptoms again. He does have an elevated white count and borderline blood pressures and appears clinically dry. Also of concern is that he has been on antibiotics and has a known history of C. difficile colitis. Has not had any recurrent liquid stools since arrival however and noncontrasted imaging of the abdomen did not show inflammatory changes. Current plans are for IV fluids, continuation of antibiotics, follow-up laboratory studies and monitoring. Coding Level of Care Code 50648 High Time for a total of 80 minutes, includes reviewing past or interval history, examining/interviewing patient, placing orders and documenting encounter Diagnoses Acute abdominal pain R10.9 Panlobular emphysema J43.1 COPD type: emphysema Emphysema type: panlobular Seizure disorder G40.909 Generalized anxiety disorder F41.1 Moderate major depression F32.1 Essential (primary) hypertension I10 Heart failure with mildly reduced ejection fraction (HFmrEF) I50.22 Atherosclerotic heart disease of redding coronary artery with other forms of angina pectoris I25.118 Mixed hyperlipidemia E78.2 Primary osteoarthritis involving multiple joints M15.0 Osteoarthritis location: multiple joints Osteoarthritis type: primary
[2024-09-29] MEDS: HYDROcodone-acetaminophen 5-325 mg Tablet 1 TAB PO (17:53)
[2024-09-29 19:43] LABS: Erythrocyte Sedimentation Rate 5 mm/hr (0-10)
[2024-09-29] MEDS: BuSPIRONE 10 mg Tablet 30 MG PO (19:44)
[2024-09-29] MEDS: sodium chlor 0.9% + KCl 20 mEq 20 MEQ/1,000 ML BAG 100 MEQ IV (19:44)
[2024-09-29] MEDS: sodium chloride 0.9% 2,177.25 ML 2177.25 ML IV (19:45)
[2024-09-29] MEDS: nicotine 21 mg Patch 1 PATCH TRANSDERMA (19:46)
[2024-09-29] MEDS: fluoxetine 20 mg Capsule PO (19:46)
[2024-09-29 19:59] LABS: Lactic Sepsis W/Reflex 2.7 mmol/L (0.5-2.2)
[2024-09-29 20:00] LABS: Blood Urea Nitrogen 19 mg/dL (6-20); Calcium 9.3 mg/dL (8.5-10.5); Carbon Dioxide 15 mmol/L (22-29); Chloride 100 mmol/L (98-107); Creatinine Clr Calc Pharmacy 82.2678; Glomerular Filtration Rate 78.5 mL/min (90-130); Glucose 163 mg/dL (65-115); Osmolality Calculated 276 mOsm/kg (285-295); Sodium 130 mmol/L (136-145)
[2024-09-29 20:01] LABS: Anion Gap 18.9 (5-19); Potassium 3.9 mmol/L (3.5-5.1)
[2024-09-29 21:27] LABS: Reflex Lactate Order REFLEX LACTIC ORDERD
[2024-09-29] MEDS: zonisamide 100 MG Capsule 200 MG PO (22:04)
[2024-09-29] MEDS: ranolazine (12HR) 500 mg Tablet PO (22:05)
[2024-09-29] MEDS: quetiapine 25 mg Tablet 50 MG PO (22:05)
[2024-09-29] MEDS: CLONazepam 1 mg Tablet 2 MG PO (22:10)
[2024-09-29] MEDS: ciprofloxacin 400 MG/200 ML PREMIX 200 MG IV (23:14)
[2024-09-29] MEDS: morphine 4 mg/mL SDV 1 mL 2 MG IVP (23:25)
[2024-09-29 23:32] LABS: Lactic Acid level (Lactate) 2.7 mmol/L (0.5-2.2)
[2024-09-29] MEDS: metroNIDAZOLE IV 500 MG/100 ML PREMIX 100 MG IV (23:55)
[2024-09-30 03:32] VITALS: BP 95/52; PULSE 81; RESP 18; TEMP 36.6; O2SAT 96
[2024-09-30] MEDS: sodium chlor 0.9% + KCl 20 mEq 20 MEQ/1,000 ML BAG 100 MEQ IV (05:29)
[2024-09-30 05:41] LABS: Basophils % 0.1 %; Hematocrit 37.9 % (37-53); Lymphocytes # 1.6 10^3/uL (0.8-4.8); Lymphocytes % 13.1 %; Mean Platelet Volume 8.4 fL (7.4-10.4); Monocytes # 0.6 10^3/uL (0.2-0.9); Monocytes % 4.7 %; Neutrophils # 10.22 10^3/uL (1.8-7.7); Neutrophils % 81.8 %; Nucleated Red Blood Cells % 0 %; Platelet Count 281 10^3/cmm (157-399); Red Blood Count 3.79 10^6/uL (3.85-5.65); Red Cell Distribution Width 12.3 % (12.1-15.1)
[2024-09-30] MEDS: aspirin 81 mg EC Tablet PO (05:53)
[2024-09-30] MEDS: tamsulosin 0.4 mg Capsule PO (05:53)
[2024-09-30 05:55] LABS: Partial Thromboplastin Time 28.1 SECONDS (23.9-36.7)
[2024-09-30] MEDS: metroNIDAZOLE IV 500 MG/100 ML PREMIX 100 MG IV (05:58)
[2024-09-30 06:00] VITALS: BMI 25.8
[2024-09-30 06:01] LABS: Alanine Aminotransferase 11 U/L (0-41); Albumin Level 3.5 g/dL (3.5-5.2); Alkaline Phosphatase 57 U/L (40-130); Anion Gap 12.9 (5-19); Aspartate Amino Transferase 20 U/L (0-40); Blood Urea Nitrogen 16 mg/dL (6-20); Calcium 8.7 mg/dL (8.5-10.5); Carbon Dioxide 17 mmol/L (22-29); Chloride 110 mmol/L (98-107); Creatinine Clr Calc Pharmacy 117.5254; Globulin 2.3 g/dL (1.3-4.6); Glomerular Filtration Rate 118.4 mL/min (90-130); Glucose 119 mg/dL (65-115); Magnesium 1.6 mg/dL (1.7-2.3); Osmolality Calculated 284 mOsm/kg (285-295); Phosphorus 2.6 mg/dL (2.5-4.5); Potassium 3.9 mmol/L (3.5-5.1); Sodium 136 mmol/L (136-145); Total Bilirubin 0.5 mg/dL (0.15-1.2); Total Protein 5.8 g/dL (6.6-8.7)
[2024-09-30 06:13] VITALS: RESP 16
[2024-09-30] MEDS: ondansetron 2 mg/ML SDV 2 mL 4 MG IVP (06:13)
[2024-09-30] MEDS: morphine 4 mg/mL SDV 1 mL 2 MG IVP (06:13)
[2024-09-30 08:00] VITALS: BP 107/68; PULSE 67; RESP 17; RESP 18; TEMP 36.4; O2SAT 99
--- NOTE | 2024-09-30 08:22 | P.DS_ITS ---
Discharge Providers Date of Admission: 09/29/24 13:42 Date of Discharge: September 30, 2024 Attending Provider at Admission: Kami Landry MD Attending Provider at Discharge: Delgado Morris Primary Care Provider: Jarrell Espino MD Diagnoses at Discharge Discharge Diagnosis (1) Acute abdominal pain: Status: Acute (2) COPD (chronic obstructive pulmonary disease): Status: Chronic Qualifiers: COPD type: emphysema Emphysema type: panlobular Qualified Code(s): J43.1 - Panlobular emphysema (3) Seizure disorder: Status: Chronic (4) Generalized anxiety disorder: Status: Acute (5) Moderate major depression: Status: Acute (6) Essential (primary) hypertension: Status: Acute (7) Heart failure with mildly reduced ejection fraction (HFmrEF): Status: Acute (8) Atherosclerotic heart disease of [place] coronary artery with other forms of angina pectoris: Status: Chronic (9) Mixed hyperlipidemia: Status: Acute (10) Osteoarthritis: Status: Chronic Qualifiers: Osteoarthritis location: multiple joints Osteoarthritis type: primary Qualified Code(s): M15.0 - Primary generalized (osteo)arthritis Permanent problem details: rt knee, cervical and Lumbar spine Reason for Visit Reason for Visit: abd pain Brief History: Josue Cheng is a 53 year old male with a complex medical history involving chronic pancreatitis and recurrent episodes of diarrhea among other diagnoses listed below. He has a history inflammatory changes in the abdomen and has been hospitalized multiple times this year for abdominal pain and diarrhea. In July, he was diagnosed with jejunitis and treated with antibiotics, followed by outpatient follow-up with a GI specialist. There was concern about Crohn's disease, and he was managed with steroids and antibiotics. In August, he was hospitalized again with colitis, treated with antibiotics, and showed clinical improvement. A colonoscopy in September 2020 showed mild diffuse inflammation from the proximal descending colon to the rectum. He recently had a follow-up outpatient colonoscopy that did not show any abnormalities per his report. The patient reports current episode of abdominal pain starting three weeks ago, 2 to 3 days after hospital discharge, with pain radiating from the groin area where he has a hernia into the upper part of his abdomen. He experiences sharp pain and nausea, lack of appetite. He has not vomited since being in the hospital but reports loose stools continue. He does have a history of C. difficile in the past and has been on several courses of antibiotics. Stool volume overall how ever has decreased from what it was earlier in the year. In the emergency room he was noted to have an elevated white count of 17,000 and blood pressures lower than what he usually presents with in the 90s systolic. He received steroids in the emergency room and request was made for admission for overnight monitoring. He has required several doses of pain medications and nausea medicines in the ER. Hospital Course Hospital Course He was hospitalized, received IV fluid hydration, empirically continued on cipr ofloxacin and Flagyl, antiemetic, was able to tolerate clear liquid diet. So far without additional diarrhea, C. difficile sample was ordered, but so far uncollected. So far without additional vomiting. Urinalysis somewhat equivocal, with 5-10 WBC, 5-10 RBC, with 1+ bacteria, but with 21-50 squamous epithelial cells. As he is otherwise feeling better, with ability to tolerate clear liquid diet, has been ambulating, leukocytosis with improvement down to 12.5, CRP and ESR were obtained as well and both normal. Lipase 21. He is returning home today with scheduled follow-up with his primary provider for reassessment tomorrow. If able to provide sample for C. difficile prior to discharge, otherwise is going to provided as outpatient. Please follow-up for continued improvement, in case of further recurrent symptoms consider referral to gastroenterology (he considers possibly at as he does have some family in [place] Physical Exam Narrative: Sitting up at edge of bed. Const: COMMON NORMALS: patient oriented x3 and alert GENERAL APPEARANCE: cooperative ORIENTATION/CONSCIOUSNESS: Yes awake HENMT: COMMON NORMALS: oropharynx normal Neck/C-Spine: COMMON NORMALS: no JVD Resp: COMMON NORMALS: normal respiratory effort and clear to auscultation bilaterally AUSCULTATION: clear to auscultation bilaterally Cardio: COMMON NORMALS: no JVD, regular rhythm, S1 normal heart sound present, S2 normal heart sound present and No murmurs present (Cardio) RHYTHM: regular rhythm HEART SOUNDS: S1 normal heart sound present and S2 normal heart sound present GI: COMMON NORMALS: Normal to inspection, nondistended, normoactive bowel sounds present, Soft to palpation and non-tender PALPATION: Yes Soft to palpation Extremity: COMMON NORMALS: no joint enlargement and no pedal edema Neuro: COMMON NORMALS: patient oriented x3 and moves all extremities SENSORIUM/ORIENTATION: Yes alert Skin: COMMON NORMALS: no rashes or lesions noted GENERAL SKIN EXAM: no rashes or lesions noted Discharge Data Studies Completed and Pending Completed Studies During Hospitalization Category Date Time Status CT kidney stone [id number] Stat Cat Scan 09/29/24 10:33 Completed Pending at discharge Category Date Time Status C.Diff PCR (Lab) Routine Lab 09/29/24 22:25 Ordered Radiology Impressions Abdomen/Pelvis CT 09/29/24 10:33 IMPRESSION: 1. No renal obstruction or ureteral obstruction. 2. Prior appendectomy. 3. Mild sigmoid diverticulosis. No evidence for an acute diverticulitis at this time. 4. No free fluid in the pelvis. 5. Moderate plaque abdominal aorta and iliac arteries. 6. Prior cholecystectomy. Laboratory Results WBC 12.50 10^3/uL (3.29-11.43) H 09/30/24 05:22 RBC 3.79 10^6/uL (3.85-5.65) L 09/30/24 05:22 Hgb 12.50 g/dL (11.27-16.99) 09/30/24 05:22 Hct 37.9 % (37-53) 09/30/24 05:22 MCV 100.0 fl (82-101) 09/30/24 05:22 MCH 33.0 pg (27-33) 09/30/24 05:22 MCHC 33.0 g/dL (30-55) 09/30/24 05:22 RDW 12.3 % (12.1-15.1) 09/30/24 05:22 Plt Count 281 10^3/cmm (157-399) 09/30/24 05:22 MPV 8.4 fL (7.4-10.4) 09/30/24 05:22 Neut % (Auto) 81.8 % 09/30/24 05:22 Lymph % (Auto) 13.1 % 09/30/24 05:22 [place] % (Auto) 4.7 % 09/30/24 05:22 Eos % (Auto) 0.0 % 09/30/24 05:22 Baso % (Auto) 0.1 % 09/30/24 05:22 Neut # (Auto) 10.22 10^3/uL (1.8-7.7) H 09/30/24 05:22 Lymph # (Auto) 1.6 10^3/uL (0.8-4.8) 09/30/24 05:22 Stevens # (Auto) 0.6 10^3/uL (0.2-0.9) 09/30/24 05:22 Eos # (Auto) 0.0 10^3/uL (0.0-0.8) 09/30/24 05:22 Baso # (Auto) 0.0 10^3/uL (0.0-0.1) 09/30/24 05:22 Nucleated RBC % (auto) 0 % 09/30/24 05:22 Nucleated RBCs # 0.0 /100WBC 09/30/24 05:22 ESR 5 mm/hr (0-10) 09/29/24 19:22 APTT 28.1 SECONDS (23.9-36.7) 09/30/24 05:22 Sodium 136 mmol/L (136-145) 09/30/24 05:22 Potassium 3.9 mmol/L (3.5-5.1) 09/30/24 05:22 Chloride 110 mmol/L (98-107) H 09/30/24 05:22 Carbon Dioxide 17 mmol/L (22-29) L 09/30/24 05:22 Anion Gap 12.9 (5-19) 09/30/24 05:22 BUN 16 mg/dL (6-20) 09/30/24 05:22 Creatinine 0.7 mg/dL (0.7-1.2) 09/30/24 05:22 GFR Calculation 118.4 mL/min (90-130) 09/30/24 05:22 Glucose 119 mg/dL (65-115) H 09/30/24 05:22 Calculated Osmolality 284 mOsm/kg (285-295) L 09/30/24 05:22 Lactic Acid 2.7 mmol/L (0.5-2.2) H 09/29/24 19:22 Lactic Acid (Sepsis) 2.7 mmol/L (0.5-2.2) H 09/29/24 22:55 Calcium 8.7 mg/dL (8.5-10.5) 09/30/24 05:22 Phosphorus 2.6 mg/dL (2.5-4.5) 09/30/24 05:22 Magnesium 1.6 mg/dL (1.7-2.3) L 09/30/24 05:22 Total Bilirubin 0.5 mg/dL (0.15-1.2) 09/30/24 05:22 AST 20 U/L (0-40) 09/30/24 05:22 ALT 11 U/L (0-41) 09/30/24 05:22 Alkaline Phosphatase 57 U/L (40-130) 09/30/24 05:22 C-Reactive Protein 3.0 mg/L (0.0-4.9) 09/29/24 19:22 Total Protein 5.8 g/dL (6.6-8.7) L 09/30/24 05:22 Albumin 3.5 g/dL (3.5-5.2) 09/30/24 05:22 Globulin 2.3 g/dL (1.3-4.6) 09/30/24 05:22 Lipase 21 U/L (13-60) 09/29/24 09:29 Urine Color [place] (Yellow) A 09/29/24 09:23 Urine Appearance Cloudy (CLEAR) A 09/29/24 09:23 Urine pH 5.5 (5-7) 09/29/24 09:23 Ur Specific [place] 1.032 (1.005-1.030) H 09/29/24 09:23 Urine Protein 2+ (Negative) A 09/29/24 09:23 Urine Glucose (UA) Negative (Normal) 09/29/24 09:23 Urine Ketones Trace (Negative) 09/29/24 09:23 Urine Blood 1+ (Negative) A 09/29/24 09:23 Urine Nitrate Positive (Negative) A 09/29/24 09:23 Urine Bilirubin 1+ (Negative) H 09/29/24 09:23 Urine Urobilinogen 0.2 mg/dL (Negative) 09/29/24 09:23 Ur Leukocyte Esterase 1+ (Negative) A 09/29/24 09:23 Urine RBC 5-10 /hpf (0-2) H 09/29/24 09:23 Urine WBC 5-10 /hpf (0-5) H 09/29/24 09:23 Ur Squamous Epith Cells 21-50 /hpf (0-5) H 09/29/24 09:23 Amorphous Sediment Not Reportable 09/29/24 09:23 Urine Bacteria 1+ /hpf (NONE) H 09/29/24 09:23 Vitals Last Vital Signs Temp 97.8 F 09/30/24 03:32 Pulse 67 09/30/24 08:00 Resp 18 09/30/24 08:00 BP 95/52 09/30/24 03:32 Pulse Ox 99 09/30/24 08:00 O2 Del Method Room Air 09/30/24 08:00 Discharge Plan Discharge Patient Disposition: Home Condition: Stable Prescriptions: Continued nitroglycerin 0.4 mg tablet, sublingual 0.4 mg sublingual Q5M PRN (Reason: chest pain) 30 Days Qty: 30 3RF Rx Instructions: until response; do not exceed 3 doses per episode buspirone 30 mg tablet 30 mg PO BID Qty: 60 2RF isosorbide mononitrate 30 mg tablet extended release 24 hr 30 mg PO DAILY Qty: 30 5RF fluoxetine 20 mg tablet 20 mg PO DAILY Qty: 60 1RF scopolamine base 1 mg over 3 days patch 3 day 1 patch transdermal Q3D PRN (Reason: motion sickness) Qty: 10 0RF pantoprazole 40 mg tablet,delayed release (DR/EC) 40 mg PO BID 30 Days Qty: 60 1RF fluticasone propion-salmeterol [Advair Diskus] 100-50 mcg/dose blister with device 1 inh INHALATION BID Qty: 60 0RF (DME) Bone Growth Stimulator See Rx Instructions .Route .MEDSUPPLY Qty: 1 0RF Rx Instructions: As directed budesonide 0.5 mg/2 mL suspension for nebulization 0.5 mg inhalation BID PRN (Reason: copd) Qty: 60 0RF clopidogrel 75 mg tablet 75 mg PO DAILY Qty: 90 0RF quetiapine [Seroquel] 50 mg tablet 50 mg PO BEDTIME Qty: 90 0RF clonazepam 2 mg tablet 2 mg PO BID PRN (Reason: Anxiety attacks) 30 Days Qty: 60 2RF tamsulosin 0.4 mg capsule 0.4 mg PO QAM Qty: 90 0RF zonisamide 100 mg capsule 200 mg PO BID Qty: 180 0RF hydrocodone-acetaminophen 5-325 mg tablet 1 tab PO Q12H PRN (Reason: pain) 28 Days Qty: 56 0RF ranolazine 500 mg tablet extended release 12 hr 500 mg PO BID Qty: 60 3RF albuterol sulfate [Ventolin HFA] 90 mcg/actuation HFA aerosol inhaler 2 puff INHALATION Q4H PRN (Reason: Shortness Of Breath) nicotine 21 mg/24 hr patch 24 hour See Rx Instructions .ROUTE .COMPLEX Rx Instructions: Apply and change one patch daily for 6 weeks. aspirin 81 mg tablet,delayed release (DR/EC) 81 mg PO QAM ondansetron 4 mg tablet,disintegrating 4 mg PO Q6H PRN (Reason: nausea and vomiting) Qty: 14 0RF prochlorperazine maleate 10 mg tablet 10 mg PO Q6H PRN (Reason: nausea/emesis) atorvastatin 80 mg tablet 80 mg PO QAM ciprofloxacin HCl 500 mg tablet 500 mg PO BID Qty: 10 0RF metronidazole 500 mg tablet 500 mg PO Q8H 5 Days Qty: 0 0RF Discharge Orders: Discharge Order (Routine); Ordered 09/30/24 Ordered By: Delgado Morris Other Ambulatory Orders: C.Diff PCR (Lab) (Routine) Timeframe: 1 Day Facility: [facility] - Location: Lab - Main Lab Ordered By: Delgado Morris Referrals: Jarrell Espino MD [Primary Care Provider] - 4-7 days Discharge Diet: Advance as tolerated Patient Instructions: Opioid Safety Activity Restrictions/Additional Instructions: Please complete antibiotic course and follow-up with your primary provider for reassessment after possible gastroenteritis. Please submit a sample for C. difficile testing, either prior to discharge or as an outpatient if not given while in the hospital. Follow up with your primary doctor for reassessment of recurrent diarrhea. Consider referral to gastroenterology. Discharge Attestations Time Spent in Discharge Care*: greater than 30 min Status at Discharge: Cognitive status at discharge: cognitively intact , Behavioral status at discharge: cooperative , Quality Metrics Clinical Quality Measures [ No reported AMI, CVA or VTE this stay] Coding Level of Care Code 95833 Total time (in minutes) for Discharge: 35 Diagnoses Acute abdominal pain R10.9 Panlobular emphysema J43.1 COPD type: emphysema Emphysema type: panlobular Seizure disorder G40.909 Generalized anxiety disorder F41.1 Moderate major depression F32.1 Essential (primary) hypertension I10 Heart failure with mildly reduced ejection fraction (HFmrEF) I50.22 Atherosclerotic heart disease of [place] coronary artery with other forms of angina pectoris I25.118 Mixed hyperlipidemia E78.2 Primary osteoarthritis involving multiple joints M15.0 Osteoarthritis location: multiple joints Osteoarthritis type: primary
[2024-09-30] MEDS: fondaparinux 2.5 mg/0.5 mL Syringe SUBCUT (09:12)
[2024-09-30] MEDS: ranolazine (12HR) 500 mg Tablet PO (09:13)
[2024-09-30] MEDS: clopidogrel 75 mg Tablet PO (09:13)
[2024-09-30] MEDS: pantoprazole 40 mg SDV IVP (09:13)
[2024-09-30] MEDS: zonisamide 100 MG Capsule 200 MG PO (09:13)
[2024-09-30] MEDS: atorvastatin 40 mg Tablet 80 MG PO (09:13)
[2024-09-30] MEDS: BuSPIRONE 10 mg Tablet 30 MG PO (09:13)
[2024-09-30] MEDS: magnesium sulfate premix 2 GM/50 ML PIGGYBACK IV (09:14)
--- NOTE | 2024-09-30 10:03 | PC.CHAP ---
Pastoral Care Encounter/Spiritual Assessment Type of Contact [] Declined windows mobile developer visit [] Patient/Family/Request visit [] Outpatient visit [] Follow-up visit [] Physician referral [] Code/Alert [x] Routine visit [] Staff referral [] Actively dying [] Patient sleeping [] Family support [] [] Out of room [] Palliative care [] [] Receiving care in room [] Pre-surgical visit [] Trauma [] Long length of stay [] ICU visit [] Other: Relational/Emotional Strength [x] Patient feels connected with others/family/visitors/staff [x] Distress [] Loneliness/isolation [] Abandonment Spirituality of Patient [x] Person of Bailey [] Attends Mandaeism of their Bailey [x] Believes in Prayer [] Reads Bible or Holiness materials [] There are Spiritual issues to be addressed Jig Filler Interventions [x] Prayer [x] Active listening [x] Non-anxious presence [x] Spiritual/emotional support [] Crisis/trauma care [] Spiritual counseling [] Bereavement support [] Provided bereavement packet [] Provided Bible/devotional materials [] Provided toy/stuffed animal, coloring book to patient or family member [] Provided Communion [] Anointing/[place] [] Salvation [x] Completed spiritual assessment [] Other: Impact on Illness or Injury [] Angry [] Fearful [] Anxious [] Often cries [] Exhaustion [] Unable to work [] Unable to attend orthodox [] Unable to walk/stand [] Unable to read [] Unable to drive [] Unable to eat/drink [] Unable to sleep [] Unable to be with family [] Patient intubated [] Other: Summary Time spent with patient 5 min
== END 2024-09-30 10:25 | disposition home or self-care (01) ==
LOC: ER 08:57 → MEDSURG 20:15
PROVIDERS: Admitting Provider Hospitalist; Emergency Provider Family Medicine; PCP Family Medicine; Visit Provider Internal Medicine
DX: R10.9 Unspecified abdominal pain (principal); G89.29 Other chronic pain; J43.1 Panlobular emphysema; G40.909 Epilepsy, unspecified, not intractable, without status epilepticus; F41.1 Generalized anxiety disorder; F32.1 Major depressive disorder, single episode, moderate; I11.0 Hypertensive heart disease with heart failure; I50.22 Chronic systolic (congestive) heart failure; I25.118 Atherosclerotic heart disease of native coronary artery with other forms of angina pectoris; E78.2 Mixed hyperlipidemia; M15.0 Primary generalized (osteo)arthritis; Z79.82 Long term (current) use of aspirin; Z79.899 Other long term (current) drug therapy; Z88.8 Allergy status to other drugs, medicaments and biological substances; Z88.5 Allergy status to narcotic agent; I25.2 Old myocardial infarction; I25.10 Atherosclerotic heart disease of native coronary artery without angina pectoris; Z86.16 Personal history of COVID-19; K21.9 Gastro-esophageal reflux disease without esophagitis; Z95.5 Presence of coronary angioplasty implant and graft; Z98.1 Arthrodesis status; Z96.651 Presence of right artificial knee joint; Z90.49 Acquired absence of other specified parts of digestive tract; F17.210 Nicotine dependence, cigarettes, uncomplicated; K40.90 Unilateral inguinal hernia, without obstruction or gangrene, not specified as recurrent; N40.0 Benign prostatic hyperplasia without lower urinary tract symptoms; R73.9 Hyperglycemia, unspecified; R19.7 Diarrhea, unspecified; Z87.19 Personal history of other diseases of the digestive system; Z90.79 Acquired absence of other genital organ(s)
CPT/HCPCS: 36415; 74176; 80048; 80053; 81001; 83605; 83690; 83735; 84100; 85025; 85651; 85730; 86140; 93005; 96365; 96367; 96372; 96375; 96376; 99285; G0378; J0744; J0780; J1200; J1652; J1885; J2270; J2405; J2470; J2919; J3475; J3480; J3490; J7030

== ENCOUNTER 2024-09-30 16:37 | Outpatient (CLI) | payer MEDICAID, SELFPAY ==
[2024-09-30 19:24] LABS: C.Diff PCR (Lab) NEGATIVE (Negative)
== END 2024-09-30 16:38 | disposition home or self-care (01) ==
PROVIDERS: PCP Family Medicine; Visit Provider Internal Medicine
DX: R10.9 Unspecified abdominal pain (principal); R19.7 Diarrhea, unspecified
CPT/HCPCS: 87493

== ENCOUNTER → 2024-10-01 10:31 | Outpatient (BNVA) | payer MEDICAID, SELFPAY | PROVIDERS: PCP Family Medicine; Visit Provider Surgery | DX: K52.9 Noninfective gastroenteritis and colitis, unspecified (principal) | CPT/HCPCS: 99204 ==

== ENCOUNTER 2024-10-02 10:12 | Outpatient (CLI) | payer MEDICAID, SELFPAY ==
[2024-10-02 11:07] LABS: Thyroid Stimulating Hormone 3.05 uIU/mL (0.27-4.20)
[2024-10-05 04:39] LABS: Gliadin Ab.IgA <1.0 U/mL; Gliadin Ab.IgG <1.0 U/mL; Tissue Transglutaminase IgA Ab <1.0 U/mL; Tissue transglutaminase Ab.IgG <1.0 U/mL
[2024-10-06 16:04] LABS: Immunoglobulin A 202 mg/dL (47-310)
== END 2024-10-02 10:13 | disposition home or self-care (01) ==
LOC: LAB 10:14
PROVIDERS: PCP Family Medicine; Visit Provider Surgery
DX: R10.9 Unspecified abdominal pain (principal); K86.1 Other chronic pancreatitis; K52.9 Noninfective gastroenteritis and colitis, unspecified; Z98.1 Arthrodesis status
CPT/HCPCS: 36415; 72100; 82784; 83516; 83630; 83993; 84443; 86140; 87177; 87209; 95816; 99213

== ENCOUNTER 2024-10-09 06:14 | Inpatient (IN) | payer MEDICAID, SELFPAY ==
[2024-10-09] VITALS (9 sets, daily range): BP systolic 108–146; BP diastolic 69–93; PULSE 55–94; RESP 16; TEMP 36.4–36.9; O2SAT 95–99; BMI 24.2; BMI 21.7
--- NOTE | 2024-10-09 07:44 | PC.PHAR ---
Pt states he has not taken medications since Sunday due to nausea and vomiting. Looks like some of them should be out and in need of refilling, but pt states he still takes them.
--- NOTE | 2024-10-09 07:46 | W.ED.BACK ---
HPI - Back Pain/Injury General: Chief Complaint: Back Pain/Injury Stated Complaint: vomitting, back pain Time Seen by Provider: 10/09/24 06:33 History of Present Illness: 53-year-old male presents emergency room with complaint of nausea vomiting low back pain. He has chronic issues surrounding this recurrent problem for him he said problems with chronic pancreatitis in the past. He is a very dark-colored urine he states he is not been able to keep anything down medicines or fluids. He denies any hematemesis or coffee-ground emesis no fever sweats or chills Associated symptoms: Reports abdominal pain, nausea and vomiting; Deny chills, dysuria, fever(s) or urinary urgency Related Data Home Medications ?Medication ?Instructions ?Recorded ?Confirmed albuterol sulfate 90 mcg/actuation 2 puff inhalation Q4H PRN 08/24/24 10/09/24 aerosol inhaler (Ventolin HFA) Shortness Of Breath aspirin 81 mg tablet,delayed 81 mg PO QAM 08/24/24 10/09/24 release nicotine 21 mg/24 hr daily See Rx Instructions .Route .COMPLEX 08/24/24 10/09/24 transdermal patch atorvastatin 80 mg tablet 80 mg PO QAM 09/16/24 10/09/24 Previous Rx's ?Medication ?Instructions ?Recorded Bone Growth Stimulator #1 ea 01/04/24 fluticasone 100 mcg-salmeterol 50 1 inh inhalation BID #60 ea 02/05/24 mcg/dose blistr powdr for inhalation (Advair Diskus) nitroglycerin 0.4 mg sublingual 0.4 mg sublingual Q5M PRN chest 02/06/24 tablet pain 30 days #30 tabs isosorbide mononitrate 30 mg 30 mg PO DAILY #30 tabs 06/24/24 tablet,extended release 24 hr buspirone 30 mg tablet 30 mg PO BID #60 tabs 07/09/24 ranolazine 500 mg tablet,extended 500 mg PO BID #60 tabs 07/15/24 release,12 hr budesonide 0.5 mg/2 mL suspension 0.5 mg (2 mL) inhalation BID PRN 07/28/24 for nebulization copd #60 mL clopidogrel 75 mg tablet 75 mg PO DAILY #90 tabs 07/28/24 quetiapine 50 mg tablet (Seroquel) 50 mg PO BEDTIME #90 tabs 07/28/24 fluoxetine 20 mg tablet 20 mg PO DAILY #60 tabs 08/18/24 clonazepam 2 mg tablet 2 mg PO BID PRN Anxiety attacks 30 08/25/24 days #60 tabs tamsulosin 0.4 mg capsule 0.4 mg PO QAM #90 caps 09/02/24 zonisamide 100 mg capsule 200 mg (2 x 100 mg) PO BID #180 09/03/24 caps pantoprazole 40 mg tablet,delayed 40 mg PO BID 30 days #60 tabs 09/05/24 release hydrocodone 5 mg-acetaminophen 325 1 tab PO Q12H PRN pain 28 days #56 10/09/24 mg tablet tabs Allergies Allergy/AdvReac Type Severity Reaction Status Date / Time meperidine (From Demerol) Allergy Severe ALGY-Hives Verified 10/02/24 13:32 Alpha-Gal Allergy upset GI Verified 10/02/24 13:32 (Awevuxqqc-Msfsc-0,3-Gala (Uetdeqzmt-Vbutq-4,3-Galactose (Alph) gabapentin AdvReac Severe ADR-Seizure Verified 10/02/24 13:32 morphine AdvReac Severe ALGY-Hives Verified 10/02/24 13:32 tramadol AdvReac Severe ADR-Seizure Verified 10/02/24 13:32 Review of Systems Const: Denies: fever(s) or chills Card: Denies: chest pain Resp: Denies: dyspnea GI: Reports: abdominal pain, nausea and vomiting : Denies: dysuria, urinary frequency or urinary urgency Musc: Denies: neck pain or back pain Skin/Breast: Denies: rash PFS ED PFSH: Medical History History of cardiovascular stress test 02/2024 Jejunitis hx in 07/2024 Chronic pancreatitis Panic attacks NSTEMI (non-ST elevated myocardial infarction) CAD (coronary artery disease) Cath 06/2024 30-40% stenosis in previously treated segment of RCA Colitis Direct inguinal hernia of right side COVID-19 (~04/2023) Moderate major depression Generalized anxiety disorder Alpha-gal syndrome Heart failure with mildly reduced ejection fraction (HFmrEF) Chronic abdominal pain Hyponatremia H. pylori duodenitis Elevated glucose Anxiety and depression Alpha galactosidase deficiency C. difficile colitis Medical marijuana use Diverticulosis seen in colonoscopy in 2023 GERD (gastroesophageal reflux disease) Urethral stricture COPD (chronic obstructive pulmonary disease) Essential (primary) hypertension Seizure disorder Mixed hyperlipidemia Osteoarthritis rt knee, cervical and Lumbar spine Surgical History History of cardiac catheterization 06/2024 - multiple prior PCIs, LM no sig stenosis, LAD minimal in-stent narrowing mid segment, LCx no severe lesions, Patent stented RCA with 30-40% jaqueline-stent stenosis. Recs: Medical therapy Status post lumbar spinal fusion L5/S1 & L4/L5 fusion, Dr Da Silva History of esophagogastroduodenoscopy (EGD) 2021. Showing esophagitis, gastritis, and duodenitis with + H.pylori biopsies History of back surgery Status post right knee replacement Hx of reconstruction of anterior cruciate ligament tear H/O neck surgery H/O left knee surgery History of appendectomy History of cholecystectomy H/O right knee surgery arthroscopic R lateral meniscetomy, chrondroplasty H/O chest tube placement H/O removal of testicle Stented coronary artery Family History Brother Parkinson disease Cancer Diabetes Stroke Bone cancer Family/Other Cancer Chronic kidney disease (CKD) Suicide Esophageal cancer Lung cancer Grandmother CAD (coronary artery disease) Cancer Lung disease Grandfather Dementia Mother Lung disease Father Suicide Other Colitis Denies family history of Clotting disorder Anesthesia complication Bleeding disorder Social History Smoking and tobacco/nicotine status: former use of tobacco/nicotine Quit status (tobacco/nicotine): has tried quititng Alcohol intake: never Substance/Drug Use: current Substance/Drug use frequency: daily Other substance/drug use details: medical card Lives independently: Yes Household members: significant other service: No Current occupational status: disabled Current occupational exposures/hazards: Yes Do you think of yourself as: Straight/Heterosexual Current gender identity: Male Physical Exam Const: GENERAL APPEARANCE: comfortable ORIENTATION/CONSCIOUSNESS: Yes awake, Yes oriented to person, Yes oriented to place and Yes oriented to time HENMT: COMMON NORMALS: normocephalic, atraumatic and hearing grossly normal bilaterally HEAD & SCALP: normocephalic and atraumatic Resp: COMMON NORMALS: normal respiratory effort, No retractions, No use of accessory muscles and clear to auscultation bilaterally AUSCULTATION: clear to auscultation bilaterally Cardio: COMMON NORMALS: regular rate, regular rhythm and No murmurs present (Cardio) RATE: regular rate RHYTHM: regular rhythm GI: COMMON NORMALS: Soft to palpation and No hepatosplenomegaly present AUSCULTATION: Yes normoactive bowel sounds PALPATION: Yes Soft to palpation, No Tenderness to palpation present (GI), No Guarding due to palpation present (GI) and Yes No hepatosplenomegaly present Extremity: COMMON NORMALS: normal to inspection, capillary refill normal, no clubbing, cyanosis or edema, no calf tenderness and no pedal edema Neuro: SENSORIUM/ORIENTATION: Yes oriented to person, Yes oriented to place and Yes oriented to time Skin: COMMON NORMALS: no rashes or lesions noted GENERAL SKIN EXAM: no rashes or lesions noted Course Vital Signs: Vital signs: Vital Signs Temperature 97.5 F L 10/09/24 06:24 Pulse Rate 81 10/09/24 11:49 Respiratory Rate 16 10/09/24 06:24 Blood Pressure 136/74 10/09/24 11:49 Pulse Oximetry 96 10/09/24 11:49 Oxygen Delivery Me thod Room Air 10/09/24 06:24 MDM - Back Pain/Injury Medical Decision Making Will admit orders written patient acute kidney injury. Does have some leukocytosis may be related to his acute illness. His abdominal exam is not suggestive of acute abdomen. Medical Records I reviewed the patient's medical records. Labs I reviewed the patient's lab results. 10/09/24 07:45 10/09/24 07:45 Radiology Impressions Chest X-Ray 10/09/24 07:51 Impression: Atherosclerosis and hyperinflation. Laboratory Results WBC 14.84 10^3/uL (3.29-11.43) H 10/09/24 07:45 RBC 5.55 10^6/uL (3.85-5.65) 10/09/24 07:45 Hgb 18.10 g/dL (11.27-16.99) H 10/09/24 07:45 Hct 53.5 % (37-53) H 10/09/24 07:45 MCV 96.4 fl (82-101) 10/09/24 07:45 MCH 32.6 pg (27-33) 10/09/24 07:45 MCHC 33.8 g/dL (30-55) 10/09/24 07:45 RDW 12.9 % (12.1-15.1) 10/09/24 07:45 Plt Count 431 10^3/cmm (157-399) H 10/09/24 07:45 MPV 9.0 fL (7.4-10.4) 10/09/24 07:45 Neut % (Auto) 84.4 % 10/09/24 07:45 Lymph % (Auto) 8.8 % 10/09/24 07:45 [place] % (Auto) 4.5 % 10/09/24 07:45 Eos % (Auto) 0.0 % 10/09/24 07:45 Baso % (Auto) 0.6 % 10/09/24 07:45 Neut # (Auto) 12.53 10^3/uL (1.8-7.7) H 10/09/24 07:45 Lymph # (Auto) 1.3 10^3/uL (0.8-4.8) 10/09/24 07:45 [place] # (Auto) 0.7 10^3/uL (0.2-0.9) 10/09/24 07:45 Eos # (Auto) 0.0 10^3/uL (0.0-0.8) 10/09/24 07:45 Baso # (Auto) 0.1 10^3/uL (0.0-0.1) 10/09/24 07:45 Nucleated RBC % (auto) 0 % 10/09/24 07:45 Nucleated RBCs # 0.0 /100WBC 10/09/24 07:45 Specimen Type Arterial 10/09/24 10:57 Sample Site Brachial, left 10/09/24 10:57 ABG pH 7.37 (7.35-7.45) 10/09/24 10:57 ABG pCO2 30.2 mmHg (35-45) L 10/09/24 10:57 ABG pO2 95.9 mmHg (80.0-100.0) 10/09/24 10:57 ABG PO2/FiO2 Ratio 456 10/09/24 10:57 ABG HCO3 17.5 mmol/L (22-26) L 10/09/24 10:57 ABG O2 Saturation 97.7 10/09/24 10:57 ABG Base Excess -6.3 mmol/L (-2.0-2.0) L 10/09/24 10:57 Madi Test N/a 10/09/24 10:57 A-a O2 Gradient 1.7 mmHg (5-10) L 10/09/24 10:57 Hematocrit 49.6 % (42-52) 10/09/24 10:57 Hgb O2 Saturation 95.7 % (95-100) 10/09/24 10:57 Carboxyhemoglobin 1.0 %THgb (0.4-20.1) 10/09/24 10:57 Methemoglobin 1.1 % (0.4-1.5) 10/09/24 10:57 Total Hemoglobin 16.2 g/dL (14-18) 10/09/24 10:57 Sodium 136.0 mmol/L (131-143) 10/09/24 10:57 Potassium 3.3 mmol/L (3.5-5.0) L 10/09/24 10:57 Glucose 146.0 mg/dL (70-115) H 10/09/24 10:57 Ionized Calcium 1.2 mmol/L (1.1-1.4) 10/09/24 10:57 O2 Delivery Device Room air 10/09/24 10:57 FiO2 21.0 % 10/09/24 10:57 Evp And Chief Operating Officer ID Amh 10/09/24 10:57 Sodium 129 mmol/L (136-145) L 10/09/24 07:45 Potassium 3.4 mmol/L (3.5-5.1) L 10/09/24 07:45 Chloride 91 mmol/L (98-107) L 10/09/24 07:45 Carbon Dioxide 13 mmol/L (22-29) L 10/09/24 07:45 Anion Gap 28.4 (5-19) H 10/09/24 07:45 BUN 23 mg/dL (6-20) H 10/09/24 07:45 Creatinine 2.6 mg/dL (0.7-1.2) H 10/09/24 07:45 GFR Calculation 26.1 mL/min (90-130) L 10/09/24 07:45 Glucose 208 mg/dL (65-115) H 10/09/24 07:45 Calculated Osmolality 278 mOsm/kg (285-295) L 10/09/24 07:45 Calcium 10.6 mg/dL (8.5-10.5) H 10/09/24 07:45 Magnesium 2.1 mg/dL (1.7-2.3) 10/09/24 07:45 Total Bilirubin 0.8 mg/dL (0.15-1.2) 10/09/24 07:45 AST 36 U/L (0-40) 10/09/24 07:45 ALT 20 U/L (0-41) 10/09/24 07:45 Alkaline Phosphatase 100 U/L (40-130) 10/09/24 07:45 Creatine Kinase 113 U/L (39-308) 10/09/24 07:45 Troponin T Baseline 14 ng/L (0-15) 10/09/24 11:09 Total Protein 9.4 g/dL (6.6-8.7) H 10/09/24 07:45 Albumin 4.7 g/dL (3.5-5.2) 10/09/24 07:45 Globulin 4.7 g/dL (1.3-4.6) H 10/09/24 07:45 Lipase 28 U/L (13-60) 10/09/24 07:45 Urine Color [place] (Yellow) A 10/09/24 09:20 Urine Appearance Turbid (CLEAR) A 10/09/24 09:20 Urine pH 5.0 (5-7) 10/09/24 09:20 Ur Specific [place] 1.028 (1.005-1.030) 10/09/24 09:20 Urine Protein 2+ (Negative) A 10/09/24 09:20 Urine Glucose (UA) Trace (Normal) H 10/09/24 09:20 Urine Ketones Trace (Negative) 10/09/24 09:20 Urine Blood 1+ (Negative) A 10/09/24 09:20 Urine Nitrate Positive (Negative) A 10/09/24 09:20 Urine Bilirubin 2+ (Negative) H 10/09/24 09:20 Urine Urobilinogen 1.0 mg/dL (Negative) 10/09/24 09:20 Ur Leukocyte Esterase 1+ (Negative) A 10/09/24 09:20 Urine RBC 11-20 /hpf (0-2) H 10/09/24 09:20 Urine WBC 6-10 /hpf (0-5) 10/09/24 09:20 Ur Squamous Epith Cells 21-50 /hpf (0-5) H 10/09/24 09:20 Amorphous Sediment Not Reportable 10/09/24 09:20 Urine Bacteria None seen /hpf (NONE) 10/09/24 09:20 Hyaline Casts 70.32 /lpf 10/09/24 09:20 Serum Ketones Negative (Negative) 10/09/24 07:45 Influenza A (PCR) Negative (Negative) 10/09/24 08:07 Influenza Type B (PCR) Negative (Negative) 10/09/24 08:07 RSV (PCR) Negative (Negative) 10/09/24 08:07 SARS-CoV-2 (PCR) Negative (Negative) 10/09/24 08:07 All radiology interpretation(s) finalized by discharge Discharge Plan Discharge Patient Disposition: Admitted As Inpatient Admit Provider: Delgado Morris Clinical Impression: Acute kidney injury, Metabolic acidosis Condition: Stable Coding Level of Care Code ED Spudder for [place]
--- NOTE | 2024-10-09 07:51 | ECG_ITS ---
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 Measurements Intervals [place] Rate: 79 P: -30 MS: 169 QRS: -45 QRSD: 92 T: -24 QT: 391 QTc: 449 Interpretive Statements SINUS RHYTHM LEFT AXIS DEVIATION [QRS AXIS < -30] MODERATE ST DEPRESSION [0.05+ mV ST DEPRESSION] Compared to ECG 09/29/2024 08:46:58 Left-axis deviation now present Ventricular premature complex(es) no longer present Indeterminate axis no longer present Left anterior fascicular block no longer present ST (T wave) deviation still present Electronically Signed On 10-10-2024 19:07:32 CDT by Can Callejas M.D. [email or web address]
--- NOTE | 2024-10-09 07:51 | XR_ITS ---
WS: [id number] Portable AP upright chest, 10/09/2024 Clinical Data: dyspnea/cough Comparison: Portable chest, 04/20/2024 Findings: No nodules, masses or effusions are seen. The heart is normal. The pulmonary vascularity is not increased. No pneumonia or pneumothorax is seen. The diaphragms are flattened. The aortic arch is minimally tortuous. There is an anterior cervical disc fusion. XR/XR chest 1V portable 10365 Impression: Atherosclerosis and hyperinflation.
[2024-10-09 07:59] LABS: Basophils # 0.1 10^3/uL (0.0-0.1); Basophils % 0.6 %; Hematocrit 53.5 % (37-53); Lymphocytes # 1.3 10^3/uL (0.8-4.8); Lymphocytes % 8.8 %; Mean Corpuscular HGB Conc 33.8 g/dL (30-55); Mean Corpuscular Hemoglobin 32.6 pg (27-33); Mean Corpuscular Volume 96.4 fl (82-101); Monocytes # 0.7 10^3/uL (0.2-0.9); Monocytes % 4.5 %; Neutrophils # 12.53 10^3/uL (1.8-7.7); Neutrophils % 84.4 %; Nucleated Red Blood Cells % 0 %; Platelet Count 431 10^3/cmm (157-399); Red Blood Count 5.55 10^6/uL (3.85-5.65); Red Cell Distribution Width 12.9 % (12.1-15.1); White Blood Count 14.84 10^3/uL (3.29-11.43)
[2024-10-09] MEDS: sodium chloride 0.9% 1,000 ML 999 ML IV ×2 (08:09→10:53)
[2024-10-09] MEDS: ondansetron 2 mg/ML SDV 2 mL 4 MG IVP ×5 (08:09→22:55)
[2024-10-09] MEDS: ketorolac 30 mg/mL INJ IVP (08:10)
[2024-10-09] MEDS: acetaminophen 1,000 MG/100 ML PIGGYBACK 400 MG IV (08:11)
[2024-10-09 08:13] LABS: Albumin Level 4.7 g/dL (3.5-5.2); Alkaline Phosphatase 100 U/L (40-130); Blood Urea Nitrogen 23 mg/dL (6-20); Calcium 10.6 mg/dL (8.5-10.5); Carbon Dioxide 13 mmol/L (22-29); Chloride 91 mmol/L (98-107); Globulin 4.7 g/dL (1.3-4.6); Glomerular Filtration Rate 26.1 mL/min (90-130); Glucose 208 mg/dL (65-115); Lipase 28 U/L (13-60); Osmolality Calculated 278 mOsm/kg (285-295); Sodium 129 mmol/L (136-145); Total Bilirubin 0.8 mg/dL (0.15-1.2); Total Protein 9.4 g/dL (6.6-8.7)
[2024-10-09] MEDS: orphenadrine 30 mg/mL Inj 2 mL 60 MG IM (08:14)
[2024-10-09] MEDS: dexamethasone 10 mg/mL INJ IM (08:14)
[2024-10-09 08:24] LABS: Alanine Aminotransferase 20 U/L (0-41); Anion Gap 28.4 (5-19); Aspartate Amino Transferase 36 U/L (0-40); Potassium 3.4 mmol/L (3.5-5.1)
[2024-10-09 09:01] LABS: Influenza A NEGATIVE (Negative); Influenza B NEGATIVE (Negative); Respiratory Syncytial Virus Ce NEGATIVE (Negative); SARS-CoV-2 PCR NEGATIVE (Negative)
[2024-10-09 09:26] LABS: Bilirubin Urine 2+ (Negative); Blood Urine 1+ (Negative); Glucose Urine UA Trace (Normal); Ketones Urine Trace (Negative); Leukocyte Esterase Urine 1+ (Negative); Nitrate Urine Positive (Negative); Protein Urine 2+ (Negative); Specific Gravity, Urine 1.028 (1.005-1.030); Urine Appearance Turbid (CLEAR)
[2024-10-09 09:32] LABS: Add Urine Microscopic? YES; Bacteria Urine None Seen /hpf; Hyaline Casts Urine 70.32 /lpf; Squamous Epithelial Cell Urine 21-50 /hpf (0-5)
[2024-10-09 09:46] LABS: UA Slide Review UA Slide Review Perf; Urine Color Orange (Yellow)
--- NOTE | 2024-10-09 10:49 | ECG_ITS ---
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 Measurements Intervals [place] Rate: 57 P: 83 TN: 169 QRS: 91 QRSD: 99 T: 77 QT: 434 QTc: 425 Interpretive Statements SINUS BRADYCARDIA BORDERLINE RIGHT AXIS DEVIATION [QRS AXIS > 90] ST DEVIATION AND MODERATE T-WAVE ABNORMALITY, CONSIDER ANTEROLATERAL ISCHEMIA [-0.1+ mV T-WAVE IN V3-V6] Compared to ECG 10/09/2024 08:00:39 T-wave abnormality now present Possible ischemia now present Sinus rhythm no longer present Left-axis deviation no longer present ST (T wave) deviation no longer present Electronically Signed On 10-10-2024 19:06:39 CDT by Can Callejas M.D. [email or web address]
[2024-10-09 11:08] LABS: Blood Gas Operator Identificat AMH; Blood Gas Sample Site Brachial, left; Blood Gas Sample Type Arterial; Ionized Calcium Level - ABG 1.2 mmol/L (1.1-1.4); Oxygen Device ROOM AIR; Potassium Level - ABG 3.3 mmol/L (3.5-5.0)
[2024-10-09 11:09] LABS: ABG PCO2 30.2 mmHg (35-45); ABG PH Result 7.37 (7.35-7.45); Alveolar-Arterial Oxygen Gradi 1.7 mmHg (5-10); Arterial Blood Gas Hematocrit 49.6 % (42-52); Base Excess ABG -6.3 mmol/L (-2.0-2.0); HCO3 ABG 17.5 mmol/L (22-26); HGB O2 Sat 95.7 % (95-100); Methemoglobin 1.1 % (0.4-1.5); Oxygen Saturation ABG 97.7; PO2 ABG 95.9 mmHg (80.0-100.0); PO2 FiO2 Ratio Arterial Blood 456; Total Hemoglobin 16.2 g/dL (14-18)
[2024-10-09 11:21] LABS: Ketone (Acetest) Serum Negative (Negative)
[2024-10-09 11:31] LABS: Magnesium 2.1 mg/dL (1.7-2.3)
--- NOTE | 2024-10-09 11:39 | PM.HP ---
Providers/Chief Complaint Primary Care Provider: Jarrell Espino MD Chief Complaint: vomitting, back pain History of Present Illness 53-year-old gentleman with past history of chronic pancreatitis, recurrent episodes of diarrhea, history of C. difficile colitis, multiple admissions for colitis, following up with surgery for consideration of repeat colonoscopy as he did have colonoscopy not long ago, although he did not have any GI symptoms at the time the colonoscopy was done and he states no biopsies were taken. He returns to the hospital after recent stay, discharge on 09/30 at which time he was treated with ciprofloxacin and Flagyl, received IV hydration, bowel rest, was advanced to clear liquids. Received empiric treatment for possible UTI. CRP and ESR were both normal. As well as lipase. He had since followed up with surgery who have been obtaining repeat stool studies he has been considering repeat colonoscopy with biopsy with them. Prior to the current visit he states he has been feeling unwell for couple of days, with nausea, poor appetite, vomiting, reduced oral intake. On presentation in ER he is found dehydrated, with leukocytosis 14.4, hyponatremia 129, hypokalemia 3.4, BUN 20, creatinine 2.6, UA with 11-20 RBC, 21-50 squamous epithelial cells, with 70 hyaline casts. Anion gap 28.4, bicarb 13. CK has been requested. ABG and serum ketones are obtained. He reports he has been bothered by pain in his posterior right hip, having to use a cane to walk. He states that he went to get a massage and they wondered if there was a pinched nerve. Review of Systems Const: Reports: malaise; Denies: fever(s) or chills ENMT: Denies: throat pain Card: Denies: chest pain, edema, pre-syncope or dyspnea on exertion Resp: Denies: dyspnea, productive cough, change in phlegm color or hemoptysis GI: Reports: abdominal pain (gen discomfort, cramping), nausea and vomiting; Denies: diarrhea, constipation, hematochezia or melena : Denies: flank pain, difficulty urinating, urinary frequency or hematuria Musc: Reports: other (Post R hip pain); Denies: back pain, joint swelling or joint redness Skin/Breast: Denies: rash or new lesions Neuro: Denies: headache(s) or confusion Endo: Denies: polyuria or polydipsia Medications/Allergies Home Medications ?Medication ?Instructions ?Recorded ?Confirmed ?Last Taken ?Type Bone Growth Stimulator #1 ea 01/04/24 10/09/24 07/15/24 05:15 Rx fluticasone 100 mcg-salmeterol 50 1 inh inhalation BID #60 ea 02/05/24 10/09/24 10/06/24 Rx mcg/dose blistr powdr for inhalation (Advair Diskus) nitroglycerin 0.4 mg sublingual 0.4 mg sublingual Q5M PRN chest 02/06/24 10/09/24 Unknown Rx tablet pain 30 days #30 tabs isosorbide mononitrate 30 mg 30 mg PO DAILY #30 tabs 06/24/24 10/09/24 10/06/24 Rx tablet,extended release 24 hr buspirone 30 mg tablet 30 mg PO BID #60 tabs 07/09/24 10/09/24 10/06/24 Rx ranolazine 500 mg tablet,extended 500 mg PO BID #60 tabs 07/15/24 10/09/24 10/06/24 Rx release,12 hr budesonide 0.5 mg/2 mL suspension 0.5 mg (2 mL) inhalation BID PRN 07/28/24 10/09/24 Unknown Rx for nebulization copd #60 mL clopidogrel 75 mg tablet 75 mg PO DAILY #90 tabs 07/28/24 10/09/24 10/06/24 Rx quetiapine 50 mg tablet (Seroquel) 50 mg PO BEDTIME #90 tabs 07/28/24 10/09/24 10/06/24 Rx fluoxetine 20 mg tablet 20 mg PO DAILY #60 tabs 08/18/24 10/09/24 10/06/24 Rx albuterol sulfate 90 mcg/actuation 2 puff inhalation Q4H PRN 08/24/24 10/09/24 Unknown History aerosol inhaler (Ventolin HFA) Shortness Of Breath aspirin 81 mg tablet,delayed 81 mg PO QAM 08/24/24 10/09/24 10/06/24 History release nicotine 21 mg/24 hr daily See Rx Instructions .Route .COMPLEX 08/24/24 10/09/24 10/06/24 History transdermal patch clonazepam 2 mg tablet 2 mg PO BID PRN Anxiety attacks 30 08/25/24 10/09/24 10/06/24 Rx days #60 tabs tamsulosin 0.4 mg capsule 0.4 mg PO QAM #90 caps 09/02/24 10/09/24 10/06/24 Rx zonisamide 100 mg capsule 200 mg (2 x 100 mg) PO BID #180 09/03/24 10/09/24 10/06/24 Rx caps pantoprazole 40 mg tablet,delayed 40 mg PO BID 30 days #60 tabs 09/05/24 10/09/24 10/06/24 Rx release atorvastatin 80 mg tablet 80 mg PO QAM 09/16/24 10/09/24 10/06/24 History hydrocodone 5 mg-acetaminophen 325 1 tab PO Q12H PRN pain 28 days #56 10/09/24 Unknown Rx mg tablet tabs Allergies Allergy/AdvReac Type Severity Reaction Status Date / Time meperidine (From Demerol) Allergy Severe ALGY-Hives Verified 10/02/24 13:32 Alpha-Gal Allergy upset GI Verified 10/02/24 13:32 (Qnpgzotje-Gmmkj-7,3-Gala (Qbeuafnfy-Qpmuk-8,3-Galactose (Alph) gabapentin AdvReac Severe ADR-Seizure Verified 10/02/24 13:32 morphine AdvReac Severe ALGY-Hives Verified 10/02/24 13:32 tramadol AdvReac Severe ADR-Seizure Verified 10/02/24 13:32 PFSH Acute PFSH: Medical History (Updated 10/09/24 @ 13:36 by Delgado Morris MD) History of cardiovascular stress test 02/2024 Jejunitis hx in 07/2024 Chronic pancreatitis Panic attacks NSTEMI (non-ST elevated myocardial infarction) CAD (coronary artery disease) Cath 06/2024 30-40% stenosis in previously treated segment of RCA Colitis Direct inguinal hernia of right side COVID-19 (~04/2023) Moderate major depression Generalized anxiety disorder Alpha-gal syndrome Heart failure with mildly reduced ejection fraction (HFmrEF) Chronic abdominal pain Hyponatremia H. pylori duodenitis Elevated glucose Anxiety and depression Alpha galactosidase deficiency C. difficile colitis Medical marijuana use Diverticulosis seen in colonoscopy in 2023 GERD (gastroesophageal reflux disease) Urethral stricture COPD (chronic obstructive pulmonary disease) Essential (primary) hypertension Seizure disorder Mixed hyperlipidemia Osteoarthritis rt knee, cervical and Lumbar spine Surgical History History of cardiac catheterization 06/2024 - multiple prior PCIs, LM no sig stenosis, LAD minimal in-stent narrowing mid segment, LCx no severe lesions, Patent stented RCA with 30-40% jaqueline-stent stenosis. Recs: Medical therapy Status post lumbar spinal fusion L5/S1 & L4/L5 fusion, Dr Da Silva History of esophagogastroduodenoscopy (EGD) 2021. Showing esophagitis, gastritis, and duodenitis with + H.pylori biopsies History of back surgery Status post right knee replacement Hx of reconstruction of anterior cruciate ligament tear H/O neck surgery H/O left knee surgery History of appendectomy History of cholecystectomy H/O right knee surgery arthroscopic R lateral meniscetomy, chrondroplasty H/O chest tube placement H/O removal of testicle Stented coronary artery Family History Brother Parkinson disease Cancer Diabetes Stroke Bone cancer Family/Other Cancer Chronic kidney disease (CKD) Suicide Esophageal cancer Lung cancer Grandmother CAD (coronary artery disease) Cancer Lung disease Grandfather Dementia Mother Lung disease Father Suicide Other Colitis Denies family history of Clotting disorder Anesthesia complication Bleeding disorder Social History Smoking and tobacco/nicotine status: former use of tobacco/nicotine Quit status (tobacco/nicotine): has tried quititng Alcohol intake: never Substance/Drug Use: current Substance/Drug use frequency: daily Other substance/drug use details: medical card Lives independently: Yes Household members: significant other service: No Current occupational status: disabled Current occupational exposures/hazards: Yes Do you think of yourself as: Straight/Heterosexual Current gender identity: Male Vitals/I&O/Wt Last Vital Signs Temp 97.5 F L 10/09/24 06:24 Pulse 87 10/09/24 10:30 Resp 16 10/09/24 06:24 BP 146/93 10/09/24 10:30 Pulse Ox 95 10/09/24 10:30 O2 Del Method Room Air 10/09/24 06:24 10/08/24 10/09/24 10/09/24 22:59 06:59 14:59 Intake Total 0 / 0 1100 / 1100 Balance 0 / 0 1100 / 1100 Weight last 48 hrs Weight 68.039 kg Physical Exam Const: COMMON NORMALS: patient oriented x3 and alert GENERAL APPEARANCE: cooperative ORIENTATION/CONSCIOUSNESS: Yes awake HENMT: COMMON NORMALS: oropharynx normal Neck/C-Spine: COMMON NORMALS: no JVD Resp: COMMON NORMALS: normal respiratory effort and clear to auscultation bilaterally AUSCULTATION: clear to auscultation bilaterally Cardio: COMMON NORMALS: no JVD, regular rhythm, S1 normal heart sound present, S2 normal heart sound present and No murmurs present (Cardio) RHYTHM: regular rhythm HEART SOUNDS: S1 normal heart sound present and S2 normal heart sound present GI: COMMON NORMALS: Normal to inspection, nondistended, normoactive bowel sounds present, Soft to palpation and non-tender PALPATION: Yes Soft to palpation Back/Pelvis: OTHER: Healed midline incision. No wound dehiscence. No surrounding erythema or induration. Extremity: COMMON NORMALS: no joint enlargement and no pedal edema OTHER: Pain of posterior right hip, without local redness, swelling, bruising, or other visible or palpable abnormality. Negative straight leg raise. Neuro: COMMON NORMALS: patient oriented x3 and moves all extremities SENSORIUM/ORIENTATION: Yes alert Skin: COMMON NORMALS: no rashes or lesions noted GENERAL SKIN EXAM: no rashes or lesions noted Data 10/09/24 07:45 10/09/24 07:45 A&P Assessment and plan (1) Acute kidney injury: Nausea and vomiting, possible gastritis, has been unable to get medications, or maintain oral intake over the last couple days, with dehydration. Acute kidney injury complicated by mixed acid-base disorder with metabolic acidosis with anion gap elevation 28.4, bicarb down to 13, as well as contraction alkalosis. Hypovolemic hyponatremia 129. Hypokalemia 3.4. With trace ketones in urine, with hyaline casts. With hypercalcemia 10.6. Albumin normal 4.7. Lipase normal 28. BUN elevated at 23, creatinine elevated 2.6. CK has been requested and pending. Reviewed vitals, CBC, ABG, CMP, magnesium, lipase, CK, UA, serum ketones, chest x-ray, EKG, ER provider note, discussed with ER provider. With dehydration continue treatment, IV fluid challenge, sodium chloride infusion, monitor for risk of fluid overload with IV fluids. Will check kidney ultrasound, assess for obstructive uropathy. (2) ST segment changes on electrocardiogram: Appears to have some possible inferolateral ST depression. This is present on some of the prior EKGs as well. Without chest pain or pressure. Has had stress test assessment back in February 2024 which showed no active ischemia. Reviewed baseline troponin and it is normal. Complete troponin EKG series. Continue aspirin, Plavix, statin. Imdur. (3) Dehydration: Dehydration after possible gastritis, currently no evidence of pancreatitis, lipase normal. PPI added twice daily. Antiemetic as needed. Bowel rest, clear liquid diet for now consistent carbohydrate, continue IV hydration, monitor for risk of fluid overload. Anion gap elevation, bicarb is low, history of diabetes, noted some hyperglycemia, glucose 208, however, without evidence of DKA. Only trace urine ketones with poor oral intake. Serum ketones negative. pH 7.37 with mixed acid-base disorder. (4) Metabolic acidosis: Mixed acid-base disorder with metabolic acidosis with anion gap elevation 28.4, bicarb down to 13. With contraction alkalosis. pH 7.37. Check lactic acid. Likely secondary to acute kidney injury. Recently also with vomiting, dehydration. Continue IV fluid hydration, reassess. Noted some hyperglycemia, glucose 208, however, without evidence of DKA. Only trace urine ketones with poor oral intake. Serum ketones negative. (5) Nausea & vomiting: Possible gastritis, with some recurrent mild nonspecific colitis in the past. CRP, ESR previously normal. In the past with recurrent pancreatitis, chronic pancreatitis. Currently lipase is normal. Some diffuse abdominal discomfort, cramping. PPI twice daily. Antiemetic as needed. Bowel rest. Reassess blood counts. Monitor vitals. Currently with leukocytosis, suspected secondary to nausea and vomiting. Without evidence of sepsis. Has history of C. difficile colitis. Is reporting some soft stools, denying hematochezia or melena. In case having loose stools we will collect for C. difficile. Currently without signs of bowel obstruction, passing flatus, had a soft bowel movement yesterday. Without any detectable distention or eructation. (6) Hyponatremia: Hypovolemic hyponatremia with dehydration, following vomiting. Rehydrated with NS, reassess chemistry. Plan Hypokalemia: Replace. Reviewed magnesium. Recheck level. Posterior right hip pain: Has been bothered for a while by the posterior right hip pain, went for massage and there was a question about whether may have a pinched nerve. No localized redness, swelling, bruising, or other abnormality on inspection or palpation. No dehiscence redness or induration surrounding the healed lumbar wound. Straight leg raise unremarkable. Reviewed orthopedic note, he is being followed with orthopedics with plans for referral for physical therapy once his GI symptoms improve. History of C. difficile, GERD, PPI COPD, currently not in exacerbation, DuoNeb, budesonide requested. DIMITRI, MDD, continue fluoxetine, quetiapine, clonazepam, buspirone seizure disorder, continue zonisamide current smoker, discussed smoking cessation for 3 and half minutes, he has been trying to quit, has been cutting down. He is trying to prepare for repair or replacement of right knee which has had loose hardware after past TKA for some time. Continue to encourage cessation. Nicotine as needed. other medical problems PDMP PDMP Reviewed: Not Reviewed Attestations Medical Necessity Statement*: Place in observation for additional assessment management of acute kidney injury complicated by acute metabolic acidosis, with nausea and vomiting, unable to keep down food or drink, or his medications, with dehydration, hyponatremia, hypokalemia, additional abnormalities as above. and High MDM includes amount and/or complexity of data reviewed/ordered [ previous or external records, resulted lab(s)/test(s), ordered lab(s)/test(s), independent test interpretation and other healthcare professional discussion] and described risk of complication, morbidity or mortality of management as documented Diagnoses Acute kidney injury N17.9 ST segment changes on electrocardiogram R94.31 Dehydration E86.0 Metabolic acidosis E87.20 Nausea & vomiting R11.2 Hyponatremia E87.1
[2024-10-09 11:41] LABS: Troponin(5th) Baseline 14 ng/L (0-15)
[2024-10-09 12:10] LABS: Creatine Phosphokinase 113 U/L (39-308)
--- NOTE | 2024-10-09 13:00 | ECG_ITS ---
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 Measurements Intervals [place] Rate: 55 P: 82 [place]: 160 QRS: 90 QRSD: 94 T: 72 QT: 440 QTc: 422 Interpretive Statements SINUS BRADYCARDIA WITH SINUS ARRHYTHMIA ST DEVIATION AND MODERATE T-WAVE ABNORMALITY, CONSIDER ANTEROLATERAL ISCHEMIA [-0.1+ mV T-WAVE IN V3-V6] Compared to ECG 10/09/2024 11:14:17 No significant changes Electronically Signed On 10-10-2024 19:23:04 CDT by Can Callejas M.D. [email or web address]
[2024-10-09] MEDS: clopidogrel 75 mg Tablet PO (13:41)
[2024-10-09] MEDS: isosorbide mononitrate ER 30 mg Tablet PO (13:41)
[2024-10-09] MEDS: sodium chloride 0.9% 1,000 ML 125 ML IV ×2 (13:41→21:02)
[2024-10-09] MEDS: HYDROcodone-acetaminophen 5-325 mg Tablet 1 TAB PO ×3 (13:42→22:55)
[2024-10-09] MEDS: fondaparinux 2.5 mg/0.5 mL Syringe SUBCUT (13:42)
--- NOTE | 2024-10-09 14:01 | USR_ITS ---
PROCEDURE INFORMATION: Exam: US Retroperitoneal, Complete, Kidneys and Bladder Exam date and time: 10/09/2024 2:13 PM Age: 53 years old Clinical indication: Condition or disease; Other: Satish TECHNIQUE: Imaging protocol: Real-time ultrasound of the retroperitoneum with image documentation. Complete exam focused on the bilateral kidneys and urinary bladder. COMPARISON: US abdomen limited [id number] 12/19/2021 9:01 AM FINDINGS: Right kidney: Normal. No stones. No hydronephrosis. 2.8 cm simple right renal cyst. Left kidney: Normal. No stones. No hydronephrosis. Urinary bladder: Unremarkable. US/US renal BI* [id number] IMPRESSION: Unremarkable kidneys and bladder.
[2024-10-09] MEDS: lidocaine 1% 5 ML in potassium chloride premix 100 ML 25 ML IV (15:00)
[2024-10-09 15:50] LABS: Lactate (Lactic Acid level) 1.3 mmol/L (0.5-2.2)
[2024-10-09] MEDS: nicotine 21 mg Patch 1 PATCH TRANSDERMA (15:51)
[2024-10-09 15:54] LABS: Troponin 5 2HR 10.27 ng/L (0-15)
[2024-10-09 15:55] LABS: Troponin 5 2HR Delta -3.73 ABS# (0-10)
--- NOTE | 2024-10-09 16:46 | ECG_ITS ---
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 Measurements Intervals [place] Rate: 62 P: 79 [place]: 153 QRS: 96 QRSD: 86 T: 85 QT: 433 QTc: 441 Interpretive Statements SINUS RHYTHM BORDERLINE RIGHT AXIS DEVIATION [QRS AXIS > 90] ST DEVIATION AND MODERATE T-WAVE ABNORMALITY, CONSIDER ANTERIOR ISCHEMIA [-0.1+ mV T-WAVE IN V3/V4] Compared to ECG 10/09/2024 14:00:41 Sinus bradycardia no longer present Sinus arrhythmia no longer present T-wave abnormality still present Possible ischemia still present Electronically Signed On 10-10-2024 19:21:47 CDT by Can Callejas M.D. [id number]
[2024-10-09] MEDS: zonisamide 100 MG Capsule 200 MG PO (17:45)
[2024-10-09] MEDS: pantoprazole DR 40 mg Tablet PO (17:46)
[2024-10-09] MEDS: BuSPIRONE 10 mg Tablet 30 MG PO (17:46)
[2024-10-09] MEDS: ranolazine (12HR) 500 mg Tablet PO (17:46)
[2024-10-09 18:34] LABS: Troponin 5 6HR 11.88 ng/L (0-15)
[2024-10-09 18:36] LABS: Troponin 5 6HR Delta -2.12 ng/L (0-12)
[2024-10-09] MEDS: quetiapine 25 mg Tablet 50 MG PO (21:01)
[2024-10-09] MEDS: CLONazepam 1 mg Tablet 2 MG PO (21:25)
[2024-10-10] VITALS: BP 102/62; PULSE 64; TEMP 37; O2SAT 95
[2024-10-10 02:27] LABS: Basophils % 0.1 %; Hematocrit 35.3 % (37-53); Lymphocytes # 1.6 10^3/uL (0.8-4.8); Lymphocytes % 10.8 %; Mean Corpuscular HGB Conc 34.3 g/dL (30-55); Mean Corpuscular Hemoglobin 33.2 pg (27-33); Mean Platelet Volume 8.9 fL (7.4-10.4); Monocytes % 6.7 %; Neutrophils % 81.6 %; Nucleated Red Blood Cells % 0 %; Platelet Count 294 10^3/cmm (157-399); Red Blood Count 3.64 10^6/uL (3.85-5.65); Red Cell Distribution Width 12.9 % (12.1-15.1); White Blood Count 14.84 10^3/uL (3.29-11.43)
[2024-10-10 02:50] LABS: Anion Gap 17.6 (5-19); Blood Urea Nitrogen 23 mg/dL (6-20); Calcium 8.2 mg/dL (8.5-10.5); Carbon Dioxide 16 mmol/L (22-29); Chloride 104 mmol/L (98-107); Glomerular Filtration Rate 70.3 mL/min (90-130); Glucose 125 mg/dL (65-115); Osmolality Calculated 283 mOsm/kg (285-295); Potassium 3.6 mmol/L (3.5-5.1); Sodium 134 mmol/L (136-145)
[2024-10-10 04:00] VITALS: BP 103/63; PULSE 61; RESP 16; O2SAT 96
[2024-10-10] MEDS: HYDROcodone-acetaminophen 5-325 mg Tablet 1 TAB PO ×5 (05:15→21:47)
[2024-10-10] MEDS: tamsulosin 0.4 mg Capsule PO (05:15)
[2024-10-10] MEDS: aspirin 81 mg EC Tablet PO (05:15)
[2024-10-10] MEDS: atorvastatin 40 mg Tablet 80 MG PO (05:15)
[2024-10-10] MEDS: sodium chloride 0.9% 1,000 ML 125 ML IV (05:15)
[2024-10-10] MEDS: ondansetron 2 mg/ML SDV 2 mL 4 MG IVP ×3 (07:14→17:29)
[2024-10-10 08:00] VITALS: BP 110/71; PULSE 65; RESP 18; TEMP 36.5; O2SAT 98
[2024-10-10] MEDS: fondaparinux 2.5 mg/0.5 mL Syringe SUBCUT (09:06)
[2024-10-10] MEDS: fluoxetine 20 mg Capsule PO (09:06)
[2024-10-10] MEDS: zonisamide 100 MG Capsule 200 MG PO ×2 (09:06→17:29)
[2024-10-10] MEDS: ranolazine (12HR) 500 mg Tablet PO ×2 (09:06→17:29)
[2024-10-10] MEDS: isosorbide mononitrate ER 30 mg Tablet PO (09:06)
[2024-10-10] MEDS: BuSPIRONE 10 mg Tablet 30 MG PO ×2 (09:06→17:30)
[2024-10-10] MEDS: clopidogrel 75 mg Tablet PO (09:06)
[2024-10-10] MEDS: pantoprazole DR 40 mg Tablet PO ×2 (09:06→17:30)
[2024-10-10] MEDS: nicotine 21 mg Patch 1 PATCH TRANSDERMA (09:06)
[2024-10-10 11:19] LABS: C.Diff PCR (Lab) NEGATIVE (Negative)
[2024-10-10 11:34] VITALS: BP 97/60; PULSE 69; RESP 17; TEMP 36.5; O2SAT 98
--- NOTE | 2024-10-10 11:40 | P.PN_ITS ---
Subjective 2 Subjective: He did not eat last night. He was able to tolerate some broth today. His abdomen has not been feeling better. Still having nausea as well. No diarrhea. Vitals/I&O/Wt Last Vital Signs Temp 97.7 F 10/10/24 11:34 Pulse 69 10/10/24 11:34 Resp 17 10/10/24 11:34 BP 97/60 10/10/24 11:34 Pulse Ox 98 10/10/24 11:34 O2 Del Method Room Air 10/10/24 11:34 10/09/24 10/10/24 10/10/24 22:59 06:59 14:59 Intake Total 2393.75 / 3493.75 1120 / 4613.75 1008.75 / 1008.75 Output Total 900 / 1100 300 / 300 Balance 2393.75 / 3293.75 220 / 3513.75 708.75 / 708.75 Weight last 48 hrs Weight 63.588 kg Weight 61.099 kg Weight 68.039 kg Physical Exam 2 Const: COMMON NORMALS: patient oriented x3 and alert GENERAL APPEARANCE: c ooperative ORIENTATION/CONSCIOUSNESS: Yes awake HENMT: COMMON NORMALS: oropharynx normal Neck/C-Spine: COMMON NORMALS: no JVD Resp: COMMON NORMALS: normal respiratory effort and clear to auscultation bilaterally AUSCULTATION: clear to auscultation bilaterally Cardio: COMMON NORMALS: no JVD, regular rhythm, S1 normal heart sound present, S2 normal heart sound present and No murmurs present (Cardio) RHYTHM: regular rhythm HEART SOUNDS: S1 normal heart sound present and S2 normal heart sound present GI: COMMON NORMALS: Normal to inspection, nondistended, normoactive bowel sounds present, Soft to palpation and non-tender PALPATION: Yes Soft to palpation Back/Pelvis: OTHER: Healed midline incision. No wound dehiscence. No surrounding erythema or induration. Extremity: COMMON NORMALS: no joint enlargement and no pedal edema OTHER: Pain of posterior right hip, without local redness, swelling, bruising, or other visible or palpable abnormality. Negative straight leg raise. Neuro: COMMON NORMALS: patient oriented x3 and moves all extremities S ENSORIUM/ORIENTATION: Yes alert Skin: COMMON NORMALS: no rashes or lesions noted GENERAL SKIN EXAM: no rashes or lesions noted Data 10/10/24 01:43 10/10/24 01:43 A&P Assessment and plan (1) Nausea & vomiting: Still generalized abdominal discomfort, nausea, poor oral intake, unimproved today with possible recurrence of colitis, with previously recurrent colitis of unclear etiology. Without signs of sepsis. Reviewed CBC, persistent leukocytosis 14.4. Recurrent unidentified colitis in the past, including a part of hepatic flexure back in January 2024, as well as distal to splenic flexure and in the sigmoid colon in August. C. difficile been ordered, but so far has not had a bowel movement. Reviewed C. difficile collected later today noted negative. Usually does respond to antibiotics, and with persistent leukocytosis, symptoms, discussed with him consideration and risk of resuming antibiotics with ciprofloxacin and Flagyl, including risk of recurrence of C. difficile infection versus additional watchful waiting. He would like to restart antibiotics at this time. He is additionally setting up follow-up with surgery for consideration of repeat colonoscopy and biopsy. Discussed with him that he would benefit from follow-up with gastroenterology for additional assessment of the recurrent colitis and GI symptoms, which she verbalized he understands, although has difficulties traveling to [place]. Reviewed platelets, normal. Reviewed BMP, mild hyponatremia 134. BUN 23, creatinine with improvement to 1.1. 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 Continue PPI. Zofran as needed, although Zofran has not been very effective, discussed with him addition of Reglan as needed. (2) Acute kidney injury: Reviewed BUN, creatinine, noted improvement in GIULIA, creatinine down to 1.1. He did tolerate some broth. Will be trying additional oral intake today. Will stop IV fluid with risk of fluid overload. Reassess volume status. Reviewed kidney ultrasound, noted unremarkable kidneys and bladder. Noted soft blood pressure 97/60, monitor for hypotension. (3) ST segment changes on electrocardiogram: Without chest pain or pressure. Appears to have some possible inferolateral ST depression. This is present on some of the prior EKGs as well. Without chest pain or pressure. Has had stress test assessment back in February 2024 which showed no active ischemia. Reviewed baseline troponin and it is normal. Complete troponin EKG series. Continue aspirin, Plavix, statin. Imdur. (4) Dehydration: Stop IV fluid. Reassess volume status. Dehydration after possible gastritis, currently no evidence of pancreatitis, lipase normal. PPI added twice daily. Antiemetic as needed. Bowel rest, clear liquid diet for now consistent carbohydrate, continue IV hydration, monitor for risk of fluid overload. Anion gap elevation, bicarb is low, history of diabetes, noted some hyperglycemia, glucose 208, however, without evidence of DKA. Only trace urine ketones with poor oral intake. Serum ketones negative. pH 7.37 with mixed acid-base disorder. (5) Metabolic acidosis: Improving, reviewed bicarb, anion gap, improving. Repeat chemistry. Stop IV fluid. Mixed acid-base disorder with metabolic acidosis with anion gap elevation 28.4, bicarb down to 13. With contraction alkalosis. pH 7.37. Check lactic acid. Likely secondary to acute kidney injury. Recently also with vomiting, dehydration. On presentation noted some hyperglycemia, glucose 208, however, without evidence of DKA. Only trace urine ketones with poor oral intake. Serum ketones negative. (6) Hyponatremia: Reviewed sodium, with improvement. Hypovolemic hyponatremia with dehydration, following vomiting. Rehydrated with NS, reassess chemistry. Plan Hypokalemia: Replaced. Posterior right hip pain: Has been bothered for a while by the posterior right hip pain, went for massage and there was a question about whether may have a pinched nerve. No localized redness, swelling, bruising, or other abnormality on inspection or palpation. No dehiscence redness or induration surrounding the healed lumbar wound. Straight leg raise unremarkable. Reviewed orthopedic note, he is being followed with orthopedics with plans for referral for physical therapy once his GI symptoms improve. History of C. difficile, GERD, PPI COPD, currently not in exacerbation, DuoNeb, budesonide requested. DIMITRI, MDD, continue fluoxetine, quetiapine, clonazepam, buspirone seizure disorder, continue zonisamide current smoker, discussed smoking cessation for 3 and half minutes, he has been trying to quit, has been cutting down. He is trying to prepare for repair or replacement of right knee which has had loose hardware after past TKA for some time. Continue to encourage cessation. Nicotine as needed. other medical problems PDMP PDMP Reviewed: Not Reviewed Attestations 2 Medical Necessity Statement*: Admission over 2 midnights needed for assessment management of unimproving with conservative measures possible recurrent colitis, with recurrent abdominal discomfort, nausea, poor oral intake, dehydration, GIULIA, hyponatremia, metabolic acidosis. and High MDM includes amount and/or complexity of data reviewed/ordered [ resulted lab(s)/test(s), ordered lab(s)/test(s) and other healthcare professional discussion] as documented Diagnoses Nausea & vomiting R11.2 Acute kidney injury N17.9 ST segment changes on electrocardiogram R94.31 Dehydration E86.0 Metabolic acidosis E87.20 Hyponatremia E87.1
[2024-10-10] MEDS: metroNIDAZOLE IV 500 MG/100 ML PREMIX 100 MG IV ×3 (13:19→23:00)
[2024-10-10] MEDS: ciprofloxacin 400 MG/200 ML PREMIX 200 MG IV (14:09)
[2024-10-10 15:47] VITALS: BP 93/55; PULSE 75; RESP 18; TEMP 36.6; O2SAT 98
[2024-10-10 20:00] VITALS: BP 106/69; PULSE 70; RESP 17; TEMP 36.7; O2SAT 99
[2024-10-10] MEDS: quetiapine 25 mg Tablet 50 MG PO (20:42)
[2024-10-11] VITALS: BP 96/60; PULSE 62; RESP 16; TEMP 36.4; O2SAT 97
[2024-10-11] MEDS: ciprofloxacin 400 MG/200 ML PREMIX 200 MG IV (00:05)
[2024-10-11] MEDS: CLONazepam 1 mg Tablet 2 MG PO ×2 (00:12→08:31)
[2024-10-11 04:00] VITALS: BP 96/60; PULSE 59; RESP 17; TEMP 36.6; O2SAT 96
[2024-10-11] MEDS: atorvastatin 40 mg Tablet 80 MG PO (05:13)
[2024-10-11] MEDS: aspirin 81 mg EC Tablet PO (05:14)
[2024-10-11] MEDS: metroNIDAZOLE IV 500 MG/100 ML PREMIX 100 MG IV (05:14)
[2024-10-11] MEDS: tamsulosin 0.4 mg Capsule PO (05:14)
[2024-10-11] MEDS: HYDROcodone-acetaminophen 5-325 mg Tablet 1 TAB PO ×2 (06:09→11:12)
[2024-10-11 07:15] LABS: Basophils % 0.3 %; Eosinophils # 0.1 10^3/uL (0.0-0.8); Hematocrit 32.8 % (37-53); Lymphocytes # 2.6 10^3/uL (0.8-4.8); Lymphocytes % 42.6 %; Mean Corpuscular HGB Conc 33.8 g/dL (30-55); Mean Corpuscular Hemoglobin 33.8 pg (27-33); Mean Platelet Volume 8.7 fL (7.4-10.4); Monocytes # 0.5 10^3/uL (0.2-0.9); Monocytes % 7.7 %; Neutrophils # 2.84 10^3/uL (1.8-7.7); Neutrophils % 47.6 %; Nucleated Red Blood Cells % 0 %; Platelet Count 241 10^3/cmm (157-399); Red Blood Count 3.28 10^6/uL (3.85-5.65); Red Cell Distribution Width 13.2 % (12.1-15.1); White Blood Count 5.98 10^3/uL (3.29-11.43)
[2024-10-11 07:24] VITALS: BP 99/56; PULSE 80; RESP 14; TEMP 36.9; O2SAT 94
[2024-10-11 07:32] LABS: Anion Gap 12.3 (5-19); Blood Urea Nitrogen 12 mg/dL (6-20); Calcium 8.5 mg/dL (8.5-10.5); Carbon Dioxide 22 mmol/L (22-29); Chloride 107 mmol/L (98-107); Glomerular Filtration Rate 101.5 mL/min (90-130); Glucose 92 mg/dL (65-115); Osmolality Calculated 285 mOsm/kg (285-295); Potassium 3.3 mmol/L (3.5-5.1); Sodium 138 mmol/L (136-145)
[2024-10-11] MEDS: ranolazine (12HR) 500 mg Tablet PO (08:31)
[2024-10-11] MEDS: nicotine 21 mg Patch 1 PATCH TRANSDERMA (08:31)
[2024-10-11] MEDS: fluoxetine 20 mg Capsule PO (08:31)
[2024-10-11] MEDS: clopidogrel 75 mg Tablet PO (08:31)
[2024-10-11] MEDS: pantoprazole DR 40 mg Tablet PO (08:31)
[2024-10-11] MEDS: isosorbide mononitrate ER 30 mg Tablet PO (08:31)
[2024-10-11] MEDS: zonisamide 100 MG Capsule 200 MG PO (08:31)
[2024-10-11] MEDS: BuSPIRONE 10 mg Tablet 30 MG PO (08:31)
[2024-10-11] MEDS: fondaparinux 2.5 mg/0.5 mL Syringe SUBCUT (08:32)
[2024-10-11 11:39] VITALS: BP 103/64; PULSE 55; RESP 16; TEMP 36.6; O2SAT 98
[2024-10-11 12:38] VITALS: BP 103/64; PULSE 55; RESP 16; TEMP 36.6; O2SAT 98
--- NOTE | 2024-10-31 12:32 | PM.DCS ---
Discharge Providers Date of Admission: 10/10/24 10:35 Date of Discharge: 10/11/24 Attending Provider at Admission: Delgado Morris Attending Provider at Discharge: Chema Magaña Primary Care Provider: Jarrell Espino MD Diagnoses at Discharge Discharge Diagnosis (1) Nausea & vomiting: Status: Acute (2) Acute kidney injury: Status: Acute (3) ST segment changes on electrocardiogram: Status: Acute (4) Dehydration: Status: Acute (5) Metabolic acidosis: Status: Acute (6) Hyponatremia: Status: Acute Reason for Visit Reason for Visit: vomitting, back pain Hospital Course Hospital Course 53-year-old gentleman with a history of chronic pancreatitis and recurrent episodes of diarrhea, including C. difficile colitis, was admitted following a period of feeling unwell characterized by nausea, poor appetite, vomiting, and reduced oral intake. Prior to this admission, he had been discharged after treatment with ciprofloxacin and Flagyl, IV hydration, and bowel rest, with subsequent advancement to clear liquids. He had been following up with surgery for potential repeat colonoscopy and biopsy due to recurrent colitis. On presentation, he was found to be dehydrated with leukocytosis, hyponatremia, hypokalemia, and acute kidney injury (GIULIA), as evidenced by elevated BUN and creatinine levels. Imaging studies, including a chest X-ray and renal ultrasound, were unremarkable. Laboratory tests revealed metabolic acidosis with an elevated anion gap and low bicarbonate levels, likely secondary to GIULIA and dehydration from vomiting. Despite a history of diabetes and some hyperglycemia, there was no evidence of diabetic ketoacidosis (DKA). During hospitalization, the patient's GIULIA improved with rehydration, and creatinine levels normalized. His electrolyte imbalances, including hypokalemia and hyponatremia, were addressed with appropriate replacements and hydration. The patient's abdominal symptoms were managed with a proton pump inhibitor (PPI) and antiemetics, although Zofran was not very effective, leading to the addition of Reglan as needed. He was maintained on a clear liquid diet and monitored for signs of fluid overload. The patient also experienced posterior right hip pain, which was evaluated by orthopedics, with plans for referral to physical therapy once his gastrointestinal symptoms improved. The patient had a history of ST segment changes on electrocardiogram without chest pain or pressure, which were consistent with previous findings and a prior stress test showing no active ischemia. Baseline troponin levels were normal, and the patient was continued on aspirin, Plavix, and statin therapy. The patient's condition improved with treatment, and he was counseled on the importance of follow-up with gastroenterology for further evaluation of his recurrent colitis and gastrointestinal symptoms. He expressed understanding but noted difficulties in traveling to [place] for appointments. The patient was discharged with plans for ongoing outpatient management and follow-up care. of note He opted not to continue antibiotic therapy at discharge, having been counseled on the risks and benefits. His primary complaint remained his known hip pain, and he was advised to follow up with his primary care physician and Dr. Da Silva, whom he had seen on 10/02, for further evaluation and management. The patient was provided with instructions for outpatient follow-up to ensure ongoing care and monitoring of his health conditionn Physical Exam Const: COMMON NORMALS: patient oriented x3 and alert GENERAL APPEARANCE: cooperative ORIENTATION/CONSCIOUSNESS: Yes awake HENMT: COMMON NORMALS: oropharynx normal Neck/C-Spine: COMMON NORMALS: no JVD Resp: COMMON NORMALS: normal respiratory effort and clear to auscultation bilaterally AUSCULTATION: clear to auscultation bilaterally Cardio: COMMON NORMALS: no JVD, regular rhythm, S1 normal heart sound present, S2 normal heart sound present and No murmurs present (Cardio) RHYTHM: regular rhythm HEART SOUNDS: S1 normal heart sound present and S2 normal heart sound present GI: COMMON NORMALS: Normal to inspection, nondistended, normoactive bowel sounds present, Soft to palpation and non-tender PALPATION: Yes Soft to palpation Back/Pelvis: OTHER: Healed midline incision. No wound dehiscence. No surrounding erythema or induration. Extremity: COMMON NORMALS: no joint enlargement and no pedal edema OTHER: Pain of posterior right hip, without local redness, swelling, bruising, or other visible or palpable abnormality. Negative straight leg raise. Neuro: COMMON NORMALS: patient oriented x3 and moves all extremities SENSORIUM/ORIENTATION: Yes alert Skin: COMMON NORMALS: no rashes or lesions noted GENERAL SKIN EXAM: no rashes or lesions noted Discharge Data Studies Completed and Pending Completed Studies During Hospitalization Category Date Time Status XR chest 1V portable [id number] Stat Exams 10/09/24 07:51 Completed US renal BI* [id number] Routine Ultrasound 10/09/24 14:01 Completed Radiology Impressions Chest X-Ray 10/09/24 07:51 Impression: Atherosclerosis and hyperinflation. Renal Ultrasound 10/09/24 14:01 IMPRESSION: Unremarkable kidneys and bladder. Laboratory Results WBC 5.98 10^3/uL (3.29-11.43) 10/11/24 06:05 RBC 3.28 10^6/uL (3.85-5.65) L 10/11/24 06:05 Hgb 11.10 g/dL (11.27-16.99) L 10/11/24 06:05 Hct 32.8 % (37-53) L 10/11/24 06:05 MCV 100.0 fl (82-101) 10/11/24 06:05 MCH 33.8 pg (27-33) H 10/11/24 06:05 MCHC 33.8 g/dL (30-55) 10/11/24 06:05 RDW 13.2 % (12.1-15.1) 10/11/24 06:05 Plt Count 241 10^3/cmm (157-399) 10/11/24 06:05 MPV 8.7 fL (7.4-10.4) 10/11/24 06:05 Neut % (Auto) 47.6 % 10/11/24 06:05 Lymph % (Auto) 42.6 % 10/11/24 06:05 [place] % (Auto) 7.7 % 10/11/24 06:05 Eos % (Auto) 1.0 % 10/11/24 06:05 Baso % (Auto) 0.3 % 10/11/24 06:05 Neut # (Auto) 2.84 10^3/uL (1.8-7.7) 10/11/24 06:05 Lymph # (Auto) 2.6 10^3/uL (0.8-4.8) 10/11/24 06:05 [place] # (Auto) 0.5 10^3/uL (0.2-0.9) 10/11/24 06:05 Eos # (Auto) 0.1 10^3/uL (0.0-0.8) 10/11/24 06:05 Baso # (Auto) 0.0 10^3/uL (0.0-0.1) 10/11/24 06:05 Nucleated RBC % (auto) 0 % 10/11/24 06:05 Nucleated RBCs # 0.0 /100WBC 10/11/24 06:05 Specimen Type Arterial 10/09/24 10:57 Sample Site Brachial, left 10/09/24 10:57 ABG pH 7.37 (7.35-7.45) 10/09/24 10:57 ABG pCO2 30.2 mmHg (35-45) L 10/09/24 10:57 ABG pO2 95.9 mmHg (80.0-100.0) 10/09/24 10:57 ABG PO2/FiO2 Ratio 456 10/09/24 10:57 ABG HCO3 17.5 mmol/L (22-26) L 10/09/24 10:57 ABG O2 Saturation 97.7 10/09/24 10:57 ABG Base Excess -6.3 mmol/L (-2.0-2.0) L 10/09/24 10:57 Madi Test N/a 10/09/24 10:57 A-a O2 Gradient 1.7 mmHg (5-10) L 10/09/24 10:57 Hematocrit 49.6 % (42-52) 10/09/24 10:57 Hgb O2 Saturation 95.7 % (95-100) 10/09/24 10:57 Carboxyhemoglobin 1.0 %THgb (0.4-20.1) 10/09/24 10:57 Methemoglobin 1.1 % (0.4-1.5) 10/09/24 10:57 Total Hemoglobin 16.2 g/dL (14-18) 10/09/24 10:57 Sodium 136.0 mmol/L (131-143) 10/09/24 10:57 Potassium 3.3 mmol/L (3.5-5.0) L 10/09/24 10:57 Glucose 146.0 mg/dL (70-115) H 10/09/24 10:57 Ionized Calcium 1.2 mmol/L (1.1-1.4) 10/09/24 10:57 O2 Delivery Device Room air 10/09/24 10:57 FiO2 21.0 % 10/09/24 10:[address] Office Assistant ID Amh 10/09/24 10:57 Sodium 138 mmol/L (136-145) 10/11/24 06:05 Potassium 3.3 mmol/L (3.5-5.1) L 10/11/24 06:05 Chloride 107 mmol/L (98-107) 10/11/24 06:05 Carbon Dioxide 22 mmol/L (22-29) 10/11/24 06:05 Anion Gap 12.3 (5-19) 10/11/24 06:05 BUN 12 mg/dL (6-20) 10/11/24 06:05 Creatinine 0.8 mg/dL (0.7-1.2) 10/11/24 06:05 GFR Calculation 101.5 mL/min (90-130) 10/11/24 06:05 Glucose 92 mg/dL (65-115) 10/11/24 06:05 Calculated Osmolality 285 mOsm/kg (285-295) 10/11/24 06:05 Lactate 1.3 mmol/L (0.5-2.2) 10/09/24 13:15 Calcium 8.5 mg/dL (8.5-10.5) 10/11/24 06:05 Magnesium 2.1 mg/dL (1.7-2.3) 10/09/24 07:45 Total Bilirubin 0.8 mg/dL (0.15-1.2) 10/09/24 07:45 AST 36 U/L (0-40) 10/09/24 07:45 ALT 20 U/L (0-41) 10/09/24 07:45 Alkaline Phosphatase 100 U/L (40-130) 10/09/24 07:45 Creatine Kinase 113 U/L (39-308) 10/09/24 07:45 Troponin T Baseline 14 ng/L (0-15) 10/09/24 11:09 Troponin T 120 Minute 10.27 ng/L (0-15) 10/09/24 13:15 Delta Troponin T -3.73 ABS# (0-10) L 10/09/24 13:15 Troponin T Hi Sens 6Hr 11.88 ng/L (0-15) 10/09/24 17:47 Troponin T Hi Sens 6Hr Delta -2.12 ng/L (0-12) L 10/09/24 17:47 Total Protein 9.4 g/dL (6.6-8.7) H 10/09/24 07:45 Albumin 4.7 g/dL (3.5-5.2) 10/09/24 07:45 Globulin 4.7 g/dL (1.3-4.6) H 10/09/24 07:45 Lipase 28 U/L (13-60) 10/09/24 07:45 Urine Color [place] (Yellow) A 10/09/24 09:20 Urine Appearance Turbid (CLEAR) A 10/09/24 09:20 Urine pH 5.0 (5-7) 10/09/24 09:20 Ur Specific [place] 1.028 (1.005-1.030) 10/09/24 09:20 Urine Protein 2+ (Negative) A 10/09/24 09:20 Urine Glucose (UA) Trace (Normal) H 10/09/24 09:20 Urine Ketones Trace (Negative) 10/09/24 09:20 Urine Blood 1+ (Negative) A 10/09/24 09:20 Urine Nitrate Positive (Negative) A 10/09/24 09:20 Urine Bilirubin 2+ (Negative) H 10/09/24 09:20 Urine Urobilinogen 1.0 mg/dL (Negative) 10/09/24 09:20 Ur Leukocyte Esterase 1+ (Negative) A 10/09/24 09:20 Urine RBC 11-20 /hpf (0-2) H 10/09/24 09:20 Urine WBC 6-10 /hpf (0-5) 10/09/24 09:20 Ur Squamous Epith Cells 21-50 /hpf (0-5) H 10/09/24 09:20 Amorphous Sediment Not Reportable 10/09/24 09:20 Urine Bacteria None seen /hpf (NONE) 10/09/24 09:20 Hyaline Casts 70.32 /lpf 10/09/24 09:20 Serum Ketones Negative (Negative) 10/09/24 07:45 C. difficile (PCR) Negative (Negative) 10/10/24 10:30 Influenza A (PCR) Negative (Negative) 10/09/24 08:07 Influenza Type B (PCR) Negative (Negative) 10/09/24 08:07 RSV (PCR) Negative (Negative) 10/09/24 08:07 SARS-CoV-2 (PCR) Negative (Negative) 10/09/24 08:07 Vitals Last Vital Signs Temp 97.8 F 10/11/24 12:38 Pulse 55 L 10/11/24 12:38 Resp 16 10/11/24 12:38 BP 103/64 10/11/24 12:38 Pulse Ox 98 10/11/24 12:38 O2 Del Method Room Air 10/11/24 11:39 Discharge Plan Discharge Patient Disposition: Home Condition: Stable Prescriptions: Continued nitroglycerin 0.4 mg tablet, sublingual 0.4 mg sublingual Q5M PRN (Reason: chest pain) 30 Days Qty: 30 3RF Rx Instructions: until response; do not exceed 3 doses per episode buspirone 30 mg tablet 30 mg PO BID Qty: 60 2RF isosorbide mononitrate 30 mg tablet extended release 24 hr 30 mg PO DAILY Qty: 30 5RF fluoxetine 20 mg tablet 20 mg PO DAILY Qty: 60 1RF pantoprazole 40 mg tablet,delayed release (DR/EC) 40 mg PO BID 30 Days Qty: 60 1RF fluticasone propion-salmeterol [Advair Diskus] 100-50 mcg/dose blister with device 1 inh INHALATION BID Qty: 60 0RF (DME) Bone Growth Stimulator See Rx Instructions .Route .MEDSUPPLY Qty: 1 0RF Rx Instructions: As directed clopidogrel 75 mg tablet 75 mg PO DAILY Qty: 90 0RF clonazepam 2 mg tablet 2 mg PO BID PRN (Reason: Anxiety attacks) 30 Days Qty: 60 2RF tamsulosin 0.4 mg capsule 0.4 mg PO QAM Qty: 90 0RF hydrocodone-acetaminophen 5-325 mg tablet 1 tab PO Q12H PRN (Reason: pain) 28 Days Qty: 56 0RF albuterol sulfate [Ventolin HFA] 90 mcg/actuation HFA aerosol inhaler 2 puff INHALATION Q4H PRN (Reason: Shortness Of Breath) nicotine 21 mg/24 hr patch 24 hour See Rx Instructions .ROUTE .COMPLEX Rx Instructions: Apply and change one patch daily for 6 weeks. aspirin 81 mg tablet,delayed release (DR/EC) 81 mg PO QAM atorvastatin 80 mg tablet 80 mg PO QAM Discontinued budesonide 0.5 mg/2 mL suspension for nebulization 0.5 mg inhalation BID PRN (Reason: copd) Qty: 60 0RF No Action zonisamide 100 mg capsule 100 mg PO BID Qty: 120 1RF potassium chloride [K-Tab] 20 mEq tablet extended release 20 meq PO DAILY Qty: 90 1RF quetiapine [Seroquel] 50 mg tablet 50 mg PO BEDTIME Qty: 90 0RF ranolazine 500 mg tablet extended release 12 hr 500 mg PO BID Qty: 60 3RF Discharge Orders: Discharge Order (Routine); Ordered 10/11/24 Ordered By: Chema Magaña Referrals: Jarrell Espino MD [Primary Care Provider] - (We have notified your physician's clinic of the need for a follow-up appointment to be scheduled. If you have not heard from them within the next 2 business days, please call them directly. ) Discharge Diet: Usual diet Discharge Activity: Increase activity as tolerated Patient Instructions: Dehydration (GEN), Hyponatremia (GEN), Hypokalemia (GEN), Opioid Safety Discharge Attestations Time Spent in Discharge Care*: greater than 30 min Status at Discharge: Cognitive status at discharge: cognitively intact, Behavioral status at discharge: cooperative, Quality Metrics Clinical Quality Measures [ No reported AMI, CVA or VTE this stay] Coding Level of Care Code Acute Code for Chg Fwd Diagnoses Nausea & vomiting R11.2 Acute kidney injury N17.9 ST segment changes on electrocardiogram R94.31 Dehydration E86.0 Metabolic acidosis E87.20 Hyponatremia E87.1
== END 2024-10-11 12:30 | disposition home or self-care (01) | DRG 683 ==
LOC: ER 07:48 → ER IP 12:04 → MEDSURG 12:18
PROVIDERS: Admitting Provider Internal Medicine; Emergency Provider Family Medicine; PCP Family Medicine; Visit Provider Hospitalist
DX: N17.9 Acute kidney failure, unspecified (principal); E87.1 Hypo-osmolality and hyponatremia; E87.20 Acidosis, unspecified; K86.1 Other chronic pancreatitis; I50.32 Chronic diastolic (congestive) heart failure; E86.0 Dehydration; E87.6 Hypokalemia; E11.65 Type 2 diabetes mellitus with hyperglycemia; Z79.02 Long term (current) use of antithrombotics/antiplatelets; Z79.82 Long term (current) use of aspirin; Z79.891 Long term (current) use of opiate analgesic; Z87.440 Personal history of urinary (tract) infections; K29.70 Gastritis, unspecified, without bleeding; M25.551 Pain in right hip; F41.0 Panic disorder [episodic paroxysmal anxiety]; I25.2 Old myocardial infarction; F32.9 Major depressive disorder, single episode, unspecified; F41.1 Generalized anxiety disorder; Z91.014 Allergy to mammalian meats; I11.0 Hypertensive heart disease with heart failure; K21.9 Gastro-esophageal reflux disease without esophagitis; J44.9 Chronic obstructive pulmonary disease, unspecified; E78.2 Mixed hyperlipidemia; I25.10 Atherosclerotic heart disease of native coronary artery without angina pectoris; Z95.5 Presence of coronary angioplasty implant and graft; Z87.891 Personal history of nicotine dependence
CPT/HCPCS: 36415; 36600; 71045; 76770; 80048; 80051; 80053; 81001; 82009; 82330; 82550; 82805; 83605; 83690; 83735; 84484; 85025; 87493; 87637; 93005; 96365; 96372; 96375; 99285; G0378; J0131; J0744; J1100; J1652; J1885; J2360; J2405; J3480; J3490; J7030; J9999

== ENCOUNTER 2024-10-22 13:25 | Outpatient (CLI) | payer MEDICAID, SELFPAY ==
--- NOTE | 2024-10-22 14:00 | US_ITS ---
WS: [id number] INDICATION: RIGHT gluteal mass TECHNIQUE: Ultrasound soft tissue of concern FINDINGS: Ultrasound soft tissue area of concern RIGHT gluteus In the area of concern RIGHT gluteus there is a densely shadowing nodule which appears calcified. This measures approximately 0.9 x 0.8 x 1.2 cm and is approximately 6.6 mm deep to the skin. This most likely represents a benign calcified granuloma likely related to trauma, injection or surgery. If further detail desired CT pelvis could be performed Addendum: CT 09/29/2024 reviewed and demonstrates a calcified granuloma in the RIGHT buttock subcutaneous fat likely corresponding to the ultrasound findings. This has a benign appearance. US/US soft tissue/extremity [id number] IMPRESSION: See above
== END 2024-10-22 13:26 | disposition home or self-care (01) ==
PROVIDERS: PCP Family Medicine; Visit Provider Family Medicine
DX: M79.18 Myalgia, other site (principal); M79.89 Other specified soft tissue disorders
CPT/HCPCS: 76882

== ENCOUNTER → 2024-11-06 08:19 | Outpatient (BNVA) | payer MEDICAID, SELFPAY | PROVIDERS: PCP Family Medicine; Visit Provider Student in an Organized Health Care Education/Training Program | DX: L92.9 Granulomatous disorder of the skin and subcutaneous tissue, unspecified (principal) | CPT/HCPCS: 99214 ==

== ENCOUNTER 2024-11-12 11:31 | Day surgery (SDC) | payer MEDICAID, SELFPAY ==
[2024-11-12 12:05] VITALS: BP 101/49; PULSE 51; RESP 18; TEMP 36.6; O2SAT 99
[2024-11-12] MEDS: sodium chloride 0.9% 1,000 ML 30 ML IV (12:27)
--- NOTE | 2024-11-12 12:33 | W.PM.OPSUD ---
Surgery/Procedure H&P Update DATE OF PROCEDURE: November 12, 2024 DATE H&P PERFORMED: 11/06/24 H&P UPDATE INFORMATION: I have reviewed H&P completed within last 30 days, I have examined patient prior to procedure and No changes to prior documentation PLANNED PROCEDURE: Operation Date: 11/12/24 13:30 Proposed Procedures p RIGHT buttock soft tissue mass excision 25341 L92.9(Right) - Jeremiah Mcgovern MD
--- NOTE | 2024-11-12 13:02 | ANES.PREANE2 ---
Pre-Anesthetic Assessment Height/Weight: Height 1.68 m Temp Pulse Resp BP Pulse Ox O2 Del Method 97.8 F 51 L 18 101/49 99 Room Air 11/12/24 12:05 11/12/24 12:05 11/12/24 12:05 11/12/24 12:05 11/12/24 12:05 11/12/24 12:07 Operation Date: 11/12/24 13:30 Proposed Procedures p RIGHT buttock soft tissue mass excision 68871 L92.9(Right) - Jeremiah Mcgovern MD Familial anesthetic complications: none Was Beta Enriqueta taken within 24 hours: N/A Was Clonidine taken within 24 hours: N/A Last intake: Intake Last Liquid Date 11/11/24 Last Liquid Time 21:00 Last Solid Date 11/11/24 Last Solid Time 18:30 Social Tobacco and No alcohol Exam alert, oriented x 3 and regular rate & rhythm Airway Submandibular: within normal limits Cervical ROM: within normal limits Mallampati: Class II Dentition: chipped Comments: Comments: upper arch edentulous, lower very poor Pulmonary Chronic Obstructive Pulmonary Disease CV/HEM Arrythmia, Coronary Artery Disease and Hypertension GI Gastroesophageal Reflux Disease Neuropsych Anxiety, Depression and Seizure Anesthetic Plan ASA status: 3 Anesthesia: MAC Medications/Allergies Home Medications ?Medication ?Instructions ?Recorded ?Confirmed ?Last Taken ?Type Bone Growth Stimulator #1 ea 01/04/24 11/06/24 07/15/24 05:15 Rx fluticasone 100 mcg-salmeterol 50 1 inh inhalation BID #60 ea 02/05/24 11/11/24 11/10/24 Rx mcg/dose blistr powdr for inhalation (Advair Diskus) nitroglycerin 0.4 mg sublingual 0.4 mg sublingual Q5M PRN chest 02/06/24 11/11/24 Unknown Rx tablet pain 30 days #30 tabs isosorbide mononitrate 30 mg 30 mg PO DAILY #30 tabs 06/24/24 11/11/24 11/10/24 Rx tablet,extended release 24 hr buspirone 30 mg tablet 30 mg PO BID #60 tabs 07/09/24 11/11/24 11/10/24 Rx clopidogrel 75 mg tablet 75 mg PO DAILY #90 tabs 07/28/24 11/11/24 11/06/24 Rx fluoxetine 20 mg tablet 20 mg PO DAILY #60 tabs 08/18/24 11/11/24 11/10/24 Rx albuterol sulfate 90 mcg/actuation 2 puff inhalation Q4H PRN 08/24/24 11/11/24 11/09/24 History aerosol inhaler (Ventolin HFA) Shortness Of Breath aspirin 81 mg tablet,delayed 81 mg PO QAM 08/24/24 11/11/24 11/10/24 History release nicotine 21 mg/24 hr daily See Rx Instructions .Route .COMPLEX 08/24/24 11/11/24 11/11/24 History transdermal patch clonazepam 2 mg tablet 2 mg PO BID PRN Anxiety attacks 30 08/25/24 11/12/24 11/12/24 Rx days #60 tabs tamsulosin 0.4 mg capsule 0.4 mg PO QAM #90 caps 09/02/24 11/11/24 11/10/24 Rx pantoprazole 40 mg tablet,delayed 40 mg PO BID 30 days #60 tabs 09/05/24 11/11/24 11/10/24 Rx release atorvastatin 80 mg tablet 80 mg PO QAM 09/16/24 11/11/24 11/10/24 History hydrocodone 5 mg-acetaminophen 325 1 tab PO Q12H PRN pain 28 days #56 10/09/24 11/11/24 11/12/24 Rx mg tablet tabs potassium chloride 20 mEq 20 meq PO DAILY #90 tabs 10/13/24 11/11/24 11/08/24 Rx tablet,extended release (K-Tab) zonisamide 100 mg capsule 100 mg PO BID #120 caps 10/13/24 11/11/24 11/11/24 Rx quetiapine 50 mg tablet (Seroquel) 50 mg PO BEDTIME #90 tabs 10/23/24 11/11/24 11/10/24 Rx ranolazine 500 mg tablet,extended 500 mg PO BID #60 tabs 10/24/24 11/11/24 11/10/24 Rx release,12 hr Allergies Allergy/AdvReac Type Severity Reaction Status Date / Time meperidine (From Demerol) Allergy Severe ALGY-Hives Verified 11/06/24 08:40 Alpha-Gal Allergy upset GI Verified 11/06/24 08:40 (Rmcbdyaos-Cfrmn-1,3-Gala (Lkidmlzam-Qbhhp-9,3-Galactose (Alph) gabapentin AdvReac Severe ADR-Seizure Verified 11/06/24 08:40 morphine AdvReac Severe ALGY-Hives Verified 11/06/24 08:40 tramadol AdvReac Severe ADR-Seizure Verified 11/06/24 08:40 Current Medications Generic Name Dose Route Start Last Admin Trade Name Freq PRN Reason Stop Dose Admin Sodium Chloride 1,000 mls @ 30 mls/hr 11/12/24 11:45 11/12/24 12:27 Sodium Chloride 0.9% IV 11/13/24 11:44 30 mls/hr .Q24H LUKE Administration PFSH Anesthesia Medical History History of cardiovascular stress test 02/2024 Jejunitis hx in 07/2024 Chronic pancreatitis Panic attacks NSTEMI (non-ST elevated myocardial infarction) CAD (coronary artery disease) Cath 06/2024 30-40% stenosis in previously treated segment of RCA Colitis Direct inguinal hernia of right side COVID-19 (~04/2023) Moderate major depression Generalized anxiety disorder Alpha-gal syndrome Heart failure with mildly reduced ejection fraction (HFmrEF) Chronic abdominal pain Hyponatremia H. pylori duodenitis Elevated glucose Anxiety and depression Alpha galactosidase deficiency C. difficile colitis Medical marijuana use Diverticulosis seen in colonoscopy in 2023 GERD (gastroesophageal reflux disease) Urethral stricture COPD (chronic obstructive pulmonary disease) Essential (primary) hypertension Seizure disorder Mixed hyperlipidemia Osteoarthritis rt knee, cervical and Lumbar spine Surgical History History of cardiac catheterization 06/2024 - multiple prior PCIs, LM no sig stenosis, LAD minimal in-stent narrowing mid segment, LCx no severe lesions, Patent stented RCA with 30-40% jaqueline-stent stenosis. Recs: Medical therapy Status post lumbar spinal fusion L5/S1 & L4/L5 fusion, Dr Da Silva History of esophagogastroduodenoscopy (EGD) 2021. Showing esophagitis, gastritis, and duodenitis with + H.pylori biopsies History of back surgery Status post right knee replacement Hx of reconstruction of anterior cruciate ligament tear H/O neck surgery H/O left knee surgery History of appendectomy History of cholecystectomy H/O right knee surgery arthroscopic R lateral meniscetomy, chrondroplasty H/O chest tube placement H/O removal of testicle Stented coronary artery Family History Brother Parkinson disease Cancer Diabetes Stroke Bone cancer Family/Other Cancer Chronic kidney disease (CKD) Suicide Esophageal cancer Lung cancer Grandmother CAD (coronary artery disease) Cancer Lung disease Grandfather Dementia Mother Lung disease Father Suicide Other Colitis Denies family history of Clotting disorder Anesthesia complication Bleeding disorder Social History Smoking and tobacco/nicotine status: current every day tobacco/nicotine user cigarettes [ Other cigarette details: 1cig, 40PY] Quit status (tobacco/nicotine): has tried quititng Alcohol intake: never Substance/Drug Use: current Substance/Drug use frequency: daily Other substance/drug use details: medical card Lives independently: Yes Household members: significant other service: No Current occupational status: disabled Current occupational exposures/hazards: Yes Do you think of yourself as: Straight/Heterosexual Current gender identity: Male Data Anesthesia Cardiac Studies: Echocardiogram 08/25/24 Echocardiogram Limited Views 08/07/22 Sestamibi Stress Test (Cardiology) 02/29/24 Cardiac Event Monitor 08/09/23
[2024-11-12] MEDS: HYDROmorphone 0.5 MG/0.5 ML INJ IVP (13:12)
[2024-11-12] MEDS: ceFAZolin 2,000 mg SDV 2000 MG IVP (14:20)
[2024-11-12] MEDS: BUPivacaine 0.25% INJ 10 mL 2 ML INJECTION (14:40)
[2024-11-12] MEDS: lidocaine-epi 1% 20 mL INJ INJECTION (14:40)
--- NOTE | 2024-11-12 14:46 | PM.OP ---
Operative Report Date of procedure: November 12, 2024 Pre-op diagnosis: Soft tissue mass right buttock Post-op diagnosis: same Post-op findings: 1 cm indurated soft tissue mass in the subcutaneous tissues. Procedure done: Right buttock soft tissue mass excision Implants: N/A Specimens removed/disposition: Soft tissue mass of right buttock sent to pathology Pathology: Soft tissue mass of right buttock sent to pathology Surgeon: Jeremiah Mcgovern MD Applications Development Analyst: N/A Anesthesia: MAC Estimated blood loss (mL): 5 Complications: N/A Findings: Right buttock soft tissue mass 1 cm indurated in the subcutaneous tissues. Condition: stable Disposition: same day Brief History: 53-year-old male who presented with a right buttock soft tissue mass. Discussed risk and benefits and patient agreed to proceed with soft tissue mass excision of right buttock. Procedure: After obtaining consent patient was brought into the OR. SCDs were on and functional. Preoperative antibiotics were administered. MAC was induced. The patient was placed in left lateral decubitus. The right buttock was prepped and draped in usual sterile fashion. A 3 cm incision was carried out over the soft tissue mass. Electrocautery was used to dissect around the mass down to the subcutaneous tissues. The mass was successfully dissected off the subcutaneous tissues. Mass was sent to pathology. Adequate hemostasis was achieved with electrocautery. Deep dermal layer was closed using interrupted 2-0 Vicryl. Epidermis was closed using vertical mattress sutures using 2-0 nylon. A sterile dressing was applied. The patient will cover anesthesia without any complications and transferred to PACU.
[2024-11-12 14:55] VITALS: BP 119/46; PULSE 58; RESP 14; O2SAT 99
[2024-11-12 15:00] VITALS: BP 117/57; PULSE 55; RESP 16; O2SAT 99
[2024-11-12 15:05] VITALS: BP 129/72; PULSE 52; RESP 16; O2SAT 99
[2024-11-12 15:10] VITALS: PULSE 52; RESP 16; TEMP 36.4
[2024-11-12 15:19] VITALS: BP 124/78; PULSE 56; RESP 17; TEMP 36.4; O2SAT 97
--- NOTE | 2024-11-12 17:03 | ANE.PACU2 ---
Inpatient post-anesthesia follow up: Airway intact: Yes Vital signs: Temperature 97.6 F Pulse Rate 56 Respiratory Rate 17 Blood Pressure 124/78 Pulse Oximetry 97 Oxygen Delivery Me thod Room Air Oxygen Flow Rate Fraction of Inspir ed Oxygen Hydration adequate: Yes Nausea and vomiting: No Pain level: 2 Mental status: Baseline
== END 2024-11-12 15:44 | disposition home or self-care (01) ==
PROVIDERS: PCP Family Medicine; Visit Provider Student in an Organized Health Care Education/Training Program
PROC: (CPT 21930; principal; 2024-11-12 13:20)
DX: R22.2 Localized swelling, mass and lump, trunk (principal); J44.9 Chronic obstructive pulmonary disease, unspecified; I25.10 Atherosclerotic heart disease of native coronary artery without angina pectoris; I10 Essential (primary) hypertension; K21.9 Gastro-esophageal reflux disease without esophagitis; I25.2 Old myocardial infarction; E78.2 Mixed hyperlipidemia; G40.909 Epilepsy, unspecified, not intractable, without status epilepticus; F17.210 Nicotine dependence, cigarettes, uncomplicated; Z79.899 Other long term (current) drug therapy; Z79.02 Long term (current) use of antithrombotics/antiplatelets; Z79.82 Long term (current) use of aspirin; Z88.5 Allergy status to narcotic agent; Z88.8 Allergy status to other drugs, medicaments and biological substances
CPT/HCPCS: 21930; 88307; J0690; J1100; J1171; J2250; J2405; J2704; J3490; J7030; J9999

== ENCOUNTER → 2024-11-24 09:54 | Outpatient (BNVA) | payer MEDICAID, SELFPAY | PROVIDERS: PCP Family Medicine; Visit Provider Student in an Organized Health Care Education/Training Program | DX: L92.9 Granulomatous disorder of the skin and subcutaneous tissue, unspecified (principal) | CPT/HCPCS: 99024 ==

== ENCOUNTER → 2024-12-15 10:00 | Outpatient (BNVA) | payer MEDICAID, SELFPAY | PROVIDERS: PCP Family Medicine; Visit Provider Student in an Organized Health Care Education/Training Program | DX: L92.9 Granulomatous disorder of the skin and subcutaneous tissue, unspecified (principal) | CPT/HCPCS: 99024 ==

== ENCOUNTER → 2024-12-25 10:21 | Outpatient (BNVA) | payer MEDICAID, SELFPAY | PROVIDERS: PCP Family Medicine; Visit Provider Nurse Practitioner Family | DX: I25.10 Atherosclerotic heart disease of native coronary artery without angina pectoris (principal); Z95.5 Presence of coronary angioplasty implant and graft; R00.1 Bradycardia, unspecified; I10 Essential (primary) hypertension; E78.2 Mixed hyperlipidemia; F12.10 Cannabis abuse, uncomplicated | CPT/HCPCS: 99214 ==

== ENCOUNTER → 2025-01-06 12:59 | Outpatient (BNVA) | payer MEDICAID, SELFPAY | PROVIDERS: PCP Family Medicine; Visit Provider Orthopaedic Surgery | DX: Z98.1 Arthrodesis status (principal) | CPT/HCPCS: 72100; 99214 ==

== ENCOUNTER 2025-01-16 16:42 | Emergency (ER) | payer MEDICAID, SELFPAY ==
[2025-01-16] VITALS (7 sets, daily range): BP systolic 93–116; BP diastolic 61–77; PULSE 58–82; RESP 16; TEMP 37; O2SAT 94–99
[2025-01-16 17:31] LABS: Basophils % 0.5 %; Eosinophils % 0.3 %; Hematocrit 41.5 % (37-53); Lymphocytes # 1.4 10^3/uL (0.8-4.8); Lymphocytes % 19.1 %; Mean Corpuscular HGB Conc 33.7 g/dL (30-55); Mean Corpuscular Hemoglobin 32.3 pg (27-33); Mean Corpuscular Volume 95.8 fl (82-101); Mean Platelet Volume 8.8 fL (7.4-10.4); Monocytes # 0.3 10^3/uL (0.2-0.9); Monocytes % 4.5 %; Neutrophils # 5.47 10^3/uL (1.8-7.7); Neutrophils % 75.2 %; Nucleated Red Blood Cells % 0 %; Platelet Count 240 10^3/cmm (157-399); Red Blood Count 4.33 10^6/uL (3.85-5.65); Red Cell Distribution Width 12.2 % (12.1-15.1); White Blood Count 7.28 10^3/uL (3.29-11.43)
[2025-01-16 17:49] LABS: Alanine Aminotransferase 7 U/L (0-41); Albumin Level 4.1 g/dL (3.5-5.2); Alkaline Phosphatase 73 U/L (40-130); Anion Gap 17.9 (5-19); Aspartate Amino Transferase 15 U/L (0-40); Blood Urea Nitrogen 13 mg/dL (6-20); Calcium 9.2 mg/dL (8.5-10.5); Carbon Dioxide 18 mmol/L (22-29); Chloride 108 mmol/L (98-107); Creatinine Clr Calc Pharmacy 84.2284; Globulin 2.6 g/dL (1.3-4.6); Glomerular Filtration Rate 88.3 mL/min (90-130); Glucose 188 mg/dL (65-115); Lipase 21 U/L (13-60); Osmolality Calculated 295 mOsm/kg (285-295); Potassium 3.9 mmol/L (3.5-5.1); Sodium 140 mmol/L (136-145); Total Bilirubin 0.6 mg/dL (0.15-1.2); Total Protein 6.7 g/dL (6.6-8.7)
[2025-01-16 18:24] LABS: Bilirubin Urine Negative (Negative); Blood Urine 1+ (Negative); Glucose Urine UA Negative (Normal); Ketones Urine Trace (Negative); Leukocyte Esterase Urine Negative (Negative); Nitrate Urine Negative (Negative); Protein Urine Negative (Negative); Specific Gravity, Urine 1.023 (1.005-1.030); Urine Appearance Turbid (CLEAR); Urine Color Yellow (Yellow)
[2025-01-16 18:29] LABS: Add Urine Microscopic? YES; Bacteria Urine None Seen /hpf; Hyaline Casts Urine 1.21 /lpf; RBC Urine 21-50 /hpf (0-2); Squamous Epithelial Cell Urine 0-5 /hpf (0-5); WBC Urine 0-5 /hpf (0-5)
--- NOTE | 2025-01-16 19:30 | CTR_ITS ---
PROCEDURE INFORMATION: Exam: CT Abdomen And Pelvis Without Contrast Exam date and time: 01/16/2025 8:20 PM Age: 54 years old Clinical indication: Nausea and vomiting; Abdominal pain; Localized; Prior surgery; Surgery date: 6+ months; Surgery type: Gb. Appy. Lumbar fusion. Orchiectomy; C/O upper abd and groin pain with n/v. TECHNIQUE: Imaging protocol: Computed tomography of the abdomen and pelvis without contrast. Radiation optimization: All CT scans at this facility use at least one of these dose optimization techniques: automated exposure control; mA and/or kV adjustment per patient size (includes targeted exams where dose is matched to clinical indication); or iterative reconstruction. COMPARISON: CT kidney stone [id number] 09/29/2024 11:21 AM RADIATION DOSE METRICS: Total DLP (mGy-cm): 503.42 FINDINGS: Lungs: Visualized lung bases are clear. Liver: The liver is unremarkable. Gallbladder and biliary ducts: Status post cholecystectomy. No significant biliary ductal dilation. Pancreas: Mild atrophy of the pancreas. No pancreatic ductal dilation. Spleen: The spleen is unremarkable. Adrenal glands: The adrenal glands are unremarkable. Kidneys and ureters: Small nonobstructing nephroliths in the left kidney lower pole, measuring up to 0.3 cm. Right renal cyst measuring up to 3.7 cm. No hydronephrosis or hydroureter bilaterally. Stomach and bowel: Multiple colonic diverticula involving the descending and sigmoid colons. There is no definitive focal evidence of acute diverticulitis. Mild acute diverticulitis could potentially be obscured. No evidence of bowel obstruction. Appendix: No evidence of acute appendicitis. Intraperitoneal space: No extraluminal free air. Vasculature: [id number] scattered calcific atheromatous disease of the abdominal aorta and its major branches. No abdominal aortic aneurysm. Lymph nodes: No distinct pathologically enlarged lymphadenopathy. Urinary bladder: Urinary bladder demonstrates a thickened bladder wall. Reproductive: Left testicle appears absent. Bones/joints: Stable appearance posterior kari and screw fusion of L4-S1. Soft tissues: Visualized superficial soft tissues are within normal limits. CT/CT abdomen pelvis wo con [id number] IMPRESSION: 1. Small nonobstructing nephroliths in the left kidney lower pole, measuring up to 0.3 cm. This appears unchanged compared to 09/29/2024. No evidence of obstructive uropathy. 2. Urinary bladder demonstrates a thickened bladder wall. This finding appears similar to that seen on 09/29/2024 and on 09/16/2024 and may be chronic. Recommend correlation with urinalysis. 3. Multiple colonic diverticula involving the descending and sigmoid colons. There is no definitive focal evidence of acute diverticulitis. Mild acute diverticulitis could potentially be obscured. COMMENTS: Consistent with the [employer]'s Incidental Findings Committee white paper (J Am Diane Radiol 2018): Any incidental renal lesion less than 1 cm or classified as too small to characterize, or any incidental cystic renal lesion characterized as simple-appearing, is likely benign. No follow-up imaging is recommended for these lesions per consensus recommendations based on imaging criteria.
--- NOTE | 2025-01-16 19:31 | ECG_ITS ---
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 Measurements Intervals [place] Rate: 60 P: 71 HI: 175 QRS: 86 QRSD: 96 T: 73 QT: 408 QTc: 408 Interpretive Statements SINUS RHYTHM Compared to ECG 10/09/2024 17:10:18 T-wave abnormality no longer present Possible ischemia no longer present Electronically Signed On 01-18-2025 19:26:25 CDT by Conchita Stafford M.D. [email or web address]
[2025-01-16 19:56] LABS: Troponin(5th) Baseline 7 ng/L (0-15)
[2025-01-16] MEDS: ketorolac 30 mg/mL INJ 15 MG IVP (20:06)
[2025-01-16 20:26] LABS: Troponin 5 2HR 6.53 ng/L (0-15)
[2025-01-16 20:29] LABS: Troponin 5 2HR Delta -0.47 ABS# (0-10)
[2025-01-16] MEDS: ondansetron 2 mg/ML SDV 2 mL 4 MG IVP (21:24)
[2025-01-16] MEDS: HYDROmorphone 0.5 MG/0.5 ML INJ IVP (21:26)
--- NOTE | 2025-01-16 21:31 | ECG_ITS ---
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 Measurements Intervals [place] Rate: 70 P: 82 SD: 162 QRS: 86 QRSD: 87 T: 79 QT: 389 QTc: 420 Interpretive Statements SINUS RHYTHM WITH SINUS ARRHYTHMIA Compared to ECG 01/16/2025 19:51:46 No significant changes Electronically Signed On 01-18-2025 19:36:45 CDT by Conchita Stafford M.D. [email or web address]
--- NOTE | 2025-01-16 22:10 | W.ED.ABDPA2 ---
HPI - Abdominal Pain General: Chief Complaint: Abdominal Pain Stated Complaint: lower abdomen pain Time Seen by Provider: 01/16/25 18:35 History of Present Illness: This patient is a 54-year-old white male who presents to the ER complaining of suprapubic abdominal pain. He states he did have some nausea and vomiting a couple of days ago but that has resolved. He has had some loose stools. No fever. No urinary symptoms. Patient states he is scheduled for a left inguinal hernia operation on February 05. He is concerned that it may be his hernia acting up. Patient also states that he has had some chest discomfort and dizziness. Associated Symptoms: Reports diarrhea, nausea and vomiting Related Data Home Medications ?Medication ?Instructions ?Recorded ?Confirmed albuterol sulfate 90 mcg/actuation 2 puff inhalation Q4H PRN 08/24/24 01/06/25 aerosol inhaler (Ventolin HFA) Shortness Of Breath nicotine 21 mg/24 hr daily See Rx Instructions .Route .COMPLEX 08/24/24 01/06/25 transdermal patch atorvastatin 80 mg tablet 80 mg PO QAM 09/16/24 01/06/25 Previous Rx's ?Medication ?Instructions ?Recorded Bone Growth Stimulator #1 ea 01/04/24 fluticasone 100 mcg-salmeterol 50 1 inh inhalation BID #60 ea 02/05/24 mcg/dose blistr powdr for inhalation (Advair Diskus) nitroglycerin 0.4 mg sublingual 0.4 mg sublingual Q5M PRN chest 02/06/24 tablet pain 30 days #30 tabs clopidogrel 75 mg tablet 75 mg PO DAILY #90 tabs 07/28/24 fluoxetine 20 mg tablet 20 mg PO DAILY #60 tabs 08/18/24 potassium chloride 20 mEq 20 meq PO DAILY #90 tabs 10/13/24 tablet,extended release (K-Tab) zonisamide 100 mg capsule 100 mg PO BID #120 caps 10/13/24 quetiapine 50 mg tablet (Seroquel) 50 mg PO BEDTIME #90 tabs 10/23/24 ranolazine 500 mg tablet,extended 500 mg PO BID #60 tabs 10/24/24 release,12 hr isosorbide mononitrate 30 mg See Rx Instructions .Route 11/18/24 tablet,extended release 24 hr .COMPLEX #30 tabs clonazepam 2 mg tablet 2 mg PO BID PRN Anxiety attacks 30 11/19/24 days #60 tabs hydrocodone 5 mg-acetaminophen 325 1 tab PO Q12H PRN pain 28 days #56 11/25/24 mg tablet tabs tamsulosin 0.4 mg capsule 0.4 mg PO QAM #90 caps 11/25/24 aspirin 81 mg tablet,delayed 81 mg PO QAM #90 tabs 11/26/24 release oxycodone 5 mg tablet 5 mg PO BID PRN pain 10 days #10 12/15/24 tabs pantoprazole 40 mg tablet,delayed 40 mg PO BID 30 days #60 tabs 12/19/24 release buspirone 30 mg tablet 30 mg PO BID #60 tabs 01/13/25 hydrocodone 5 mg-acetaminophen 325 1 tab PO Q4H PRN pain #30 tabs 01/16/25 mg tablet Allergies Allergy/AdvReac Type Severity Reaction Status Date / Time meperidine (From Demerol) Allergy Severe ALGY-Hives Verified 12/25/24 10:31 Alpha-Gal Allergy upset GI Verified 12/25/24 10:31 (Hgyyxfcro-Qmzxq-5,3-Gala (Gjmljcgwa-Kgurq-7,3-Galactose (Alph) gabapentin AdvReac Severe ADR-Seizure Verified 12/25/24 10:31 morphine AdvReac Severe ALGY-Hives Verified 12/25/24 10:31 tramadol AdvReac Severe ADR-Seizure Verified 12/25/24 10:31 Review of Systems General: Reports: 10 or more systems reviewed and unremarkable except in HPI and below GI: Reports: abdominal pain, nausea, vomiting and diarrhea PFSH ED PFSH: Medical History History of cardiovascular stress test 02/2024 Jejunitis hx in 07/2024 Chronic pancreatitis Panic attacks NSTEMI (non-ST elevated myocardial infarction) CAD (coronary artery disease) Cath 06/2024 30-40% stenosis in previously treated segment of RCA Colitis Direct inguinal hernia of right side COVID-19 (~04/2023) Moderate major depression Generalized anxiety disorder Alpha-gal syndrome Heart failure with mildly reduced ejection fraction (HFmrEF) Chronic abdominal pain Hyponatremia H. pylori duodenitis Elevated glucose Anxiety and depression Alpha galactosidase deficiency C. difficile colitis Medical marijuana use Diverticulosis seen in colonoscopy in 2023 GERD (gastroesophageal reflux disease) Urethral stricture COPD (chronic obstructive pulmonary disease) Essential (primary) hypertension Seizure disorder Mixed hyperlipidemia Osteoarthritis rt knee, cervical and Lumbar spine Surgical History History of cardiac catheterization 06/2024 - multiple prior PCIs, LM no sig stenosis, LAD minimal in-stent narrowing mid segment, LCx no severe lesions, Patent stented RCA with 30-40% jaqueline-stent stenosis. Recs: Medical therapy Status post lumbar spinal fusion L5/S1 & L4/L5 fusion, Dr Da Silva History of esophagogastroduodenoscopy (EGD) 2021. Showing esophagitis, gastritis, and duodenitis with + H.pylori biopsies History of back surgery Status post right knee replacement Hx of reconstruction of anterior cruciate ligament tear H/O neck surgery H/O left knee surgery History of appendectomy History of cholecystectomy H/O right knee surgery arthroscopic R lateral meniscetomy, chrondroplasty H/O chest tube placement H/O removal of testicle Stented coronary artery Family History Brother Parkinson disease Cancer Diabetes Stroke Bone cancer Family/Other Cancer Chronic kidney disease (CKD) Suicide Esophageal cancer Lung cancer Grandmother CAD (coronary artery disease) Cancer Lung disease Grandfather Dementia Mother Lung disease Father Suicide Other Colitis Denies family history of Clotting disorder Anesthesia complication Bleeding disorder Social History Smoking and tobacco/nicotine status: unknown if used tobacco/nicotine Quit status (tobacco/nicotine): has tried quititng Alcohol intake: never Substance/Drug Use: current Substance/Drug use frequency: daily Other substance/drug use details: medical card Lives independently: Yes Household members: significant other service: No Current occupational status: disabled Current occupational exposures/hazards: Yes Do you think of yourself as: Straight/Heterosexual Current gender identity: Male Physical Exam Const: COMMON NORMALS: no acute distress, patient oriented x3 and no limitations GENERAL APPEARANCE: cooperative and comfortable HENMT: COMMON NORMALS: normocephalic, atraumatic, Normal nasal mucous membranes and turbinates present, moist oral mucous membranes and oropharynx normal HEAD & SCALP: normal to inspection, normocephalic and atraumatic FACE & SINUS: normal facial exam NOSE: Normal nasal mucous membranes and turbinates present Eye: COMMON NORMALS: Equal, round and reactive pupils present, EOMs intact bilaterally and conjunctivae normal GENERAL EYE: appearance normal, both eyes and all related structures CONJUNCTIVA: Yes conjunctivae normal PUPIL: Yes Equal, round and reactive pupils present Neck/C-Spine: COMMON NORMALS: supple and no JVD Chest: COMMONS NORMALS: normal inspection of the chest Resp: COMMON NORMALS: normal respiratory effort and clear to auscultation bilaterally AUSCULTATION: clear to auscultation bilaterally Cardio: COMMON NORMALS: no JVD, regular rate, regular rhythm, No gallops present (Cardio), No murmurs present (Cardio) and No rub (Cardio) RATE: regular rate RHYTHM: regular rhythm GI: AUSCULTATION: Yes normoactive bowel sounds OTHER: Some tenderness in the suprapubic area. No palpable masses. : COMMON NORMALS: Yes no CVA tenderness BLADDER/KIDNEY EXAM: Yes no CVA tenderness Back/Pelvis: COMMON NORMALS: no CVA tenderness and thoracic and lumbar spine normal to inspection Extremity: COMMON NORMALS: normal to inspection Neuro: COMMON NORMALS: patient oriented x3 and CN's II-XII intact bilaterally Psych: COMMON NORMALS: mental status grossly normal, Normal thought process present and cooperative THOUGHT PROCESS: Normal thought process present Skin: COMMON NORMALS: no rashes or lesions noted, turgor normal and no jaundice GENERAL SKIN EXAM: no rashes or lesions noted and turgor normal Course Vital Signs: Vital signs: Vital Signs Temperature 98.6 F 01/16/25 16:47 Pulse Rate 62 01/16/25 21:30 Respiratory Rate 16 01/16/25 16:47 Blood Pressure 114/77 01/16/25 21:30 Pulse Oximetry 96 01/16/25 21:30 Oxygen Delivery Me thod Room Air 01/16/25 21:30 MDM - Abdominal Pain Medical Decision Making EKG was normal. CT scan of the abdomen and pelvis was read by the radiologist as normal. CBC, CMP and lipase normal. Urine analysis normal. Troponin was 7 with a 2-hour level of 6.5. Patient was given Toradol and Dilaudid for his pain. He was discharged in stable condition with a prescription for hydrocodone. He does have left inguinal hernia repair scheduled for February 05 recommended he follow-up with his surgeon as scheduled. Lab Data 01/16/25 17:24 01/16/25 17:24 Labs/Radiology: Radiology Impressions Abdomen/Pelvis CT 01/16/25 19:30 IMPRESSION: 1. Small nonobstructing nephroliths in the left kidney lower pole, measuring up to 0.3 cm. This appears unchanged compared to 09/29/2024. No evidence of obstructive uropathy. 2. Urinary bladder demonstrates a thickened bladder wall. This finding appears similar to that seen on 09/29/2024 and on 09/16/2024 and may be chronic. Recommend correlation with urinalysis. 3. Multiple colonic diverticula involving the descending and sigmoid colons. There is no definitive focal evidence of acute diverticulitis. Mild acute diverticulitis could potentially be obscured. COMMENTS: Consistent with the [employer]'s Incidental Findings Committee white paper (J Am Diane Radiol 2018): Any incidental renal lesion less than 1 cm or classified as too small to characterize, or any incidental cystic renal lesion characterized as simple-appearing, is likely benign. No follow-up imaging is recommended for these lesions per consensus recommendations based on imaging criteria. Laboratory Results WBC 7.28 10^3/uL (3.29-11.43) 01/16/25 17:24 RBC 4.33 10^6/uL (3.85-5.65) 01/16/25 17:24 Hgb 14.00 g/dL (11.27-16.99) 01/16/25 17:24 Hct 41.5 % (37-53) 01/16/25 17:24 MCV 95.8 fl (82-101) 01/16/25 17:24 MCH 32.3 pg (27-33) 01/16/25 17:24 MCHC 33.7 g/dL (30-55) 01/16/25 17:24 RDW 12.2 % (12.1-15.1) 01/16/25 17:24 Plt Count 240 10^3/cmm (157-399) 01/16/25 17:24 MPV 8.8 fL (7.4-10.4) 01/16/25 17:24 Neut % (Auto) 75.2 % 01/16/25 17:24 Lymph % (Auto) 19.1 % 01/16/25 17:24 [place] % (Auto) 4.5 % 01/16/25 17:24 Eos % (Auto) 0.3 % 01/16/25 17:24 Baso % (Auto) 0.5 % 01/16/25 17:24 Neut # (Auto) 5.47 10^3/uL (1.8-7.7) 01/16/25 17:24 Lymph # (Auto) 1.4 10^3/uL (0.8-4.8) 01/16/25 17:24 [place] # (Auto) 0.3 10^3/uL (0.2-0.9) 01/16/25 17:24 Eos # (Auto) 0.0 10^3/uL (0.0-0.8) 01/16/25 17:24 Baso # (Auto) 0.0 10^3/uL (0.0-0.1) 01/16/25 17:24 Nucleated RBC % (auto) 0 % 01/16/25 17:24 Nucleated RBCs # 0.0 /100WBC 01/16/25 17:24 Sodium 140 mmol/L (136-145) 01/16/25 17:24 Potassium 3.9 mmol/L (3.5-5.1) 01/16/25 17:24 Chloride 108 mmol/L (98-107) H 01/16/25 17:24 Carbon Dioxide 18 mmol/L (22-29) L 01/16/25 17:24 Anion Gap 17.9 (5-19) 01/16/25 17:24 BUN 13 mg/dL (6-20) 01/16/25 17:24 Creatinine 0.9 mg/dL (0.7-1.2) 01/16/25 17:24 GFR Calculation 88.3 mL/min (90-130) L 01/16/25 17:24 Glucose 188 mg/dL (65-115) H 01/16/25 17:24 Calculated Osmolality 295 mOsm/kg (285-295) 01/16/25 17:24 Calcium 9.2 mg/dL (8.5-10.5) 01/16/25 17:24 Total Bilirubin 0.6 mg/dL (0.15-1.2) 01/16/25 17:24 AST 15 U/L (0-40) 01/16/25 17:24 ALT 7 U/L (0-41) 01/16/25 17:24 Alkaline Phosphatase 73 U/L (40-130) 01/16/25 17:24 Troponin T Baseline 7 ng/L (0-15) 01/16/25 17:24 Troponin T 120 Minute 6.53 ng/L (0-15) 01/16/25 19:58 Delta Troponin T -0.47 ABS# (0-10) L 01/16/25 19:58 Total Protein 6.7 g/dL (6.6-8.7) 01/16/25 17:24 Albumin 4.1 g/dL (3.5-5.2) 01/16/25 17:24 Globulin 2.6 g/dL (1.3-4.6) 01/16/25 17:24 Lipase 21 U/L (13-60) 01/16/25 17:24 Urine Color Yellow (Yellow) 01/16/25 18:17 Urine Appearance Turbid (CLEAR) A 01/16/25 18:17 Urine pH 8.0 (5-7) A 01/16/25 18:17 Ur Specific [place] 1.023 (1.005-1.030) 01/16/25 18:17 Urine Protein Negative (Negative) 01/16/25 18:17 Urine Glucose (UA) Negative (Normal) 01/16/25 18:17 Urine Ketones Trace (Negative) 01/16/25 18:17 Urine Blood 1+ (Negative) A 01/16/25 18:17 Urine Nitrate Negative (Negative) 01/16/25 18:17 Urine Bilirubin Negative (Negative) 01/16/25 18:17 Urine Urobilinogen 1.0 mg/dL (Negative) 01/16/25 18:17 Ur Leukocyte Esterase Negative (Negative) 01/16/25 18:17 Urine RBC 21-50 /hpf (0-2) H 01/16/25 18:17 Urine WBC 0-5 /hpf (0-5) 01/16/25 18:17 Ur Squamous Epith Cells 0-5 /hpf (0-5) 01/16/25 18:17 Amorphous Sediment Not Reportable 01/16/25 18:17 Urine Bacteria None seen /hpf (NONE) 01/16/25 18:17 Hyaline Casts 1.21 /lpf 01/16/25 18:17 All radiology interpretation(s) finalized by discharge Discharge Plan Discharge Patient Disposition: Home Clinical Impression: Abdominal pain Qualifiers: Abdominal location: lower abdomen, unspecified Qualified Code(s): R10.30 - Lower abdominal pain, unspecified Condition: Stable Prescriptions: New hydrocodone-acetaminophen 5-325 mg tablet 1 tab PO Q4H PRN (Reason: pain) Qty: 30 0RF No Action nitroglycerin 0.4 mg tablet, sublingual 0.4 mg sublingual Q5M PRN (Reason: chest pain) 30 Days Qty: 30 3RF Rx Instructions: until response; do not exceed 3 doses per episode fluoxetine 20 mg tablet 20 mg PO DAILY Qty: 60 1RF fluticasone propion-salmeterol [Advair Diskus] 100-50 mcg/dose blister with device 1 inh INHALATION BID Qty: 60 0RF zonisamide 100 mg capsule 100 mg PO BID Qty: 120 1RF potassium chloride [K-Tab] 20 mEq tablet extended release 20 meq PO DAILY Qty: 90 1RF oxycodone 5 mg tablet 5 mg PO BID PRN (Reason: pain) 10 Days Qty: 10 0RF (DME) Bone Growth Stimulator See Rx Instructions .Route .MEDSUPPLY Qty: 1 0RF Rx Instructions: As directed clopidogrel 75 mg tablet 75 mg PO DAILY Qty: 90 0RF quetiapine [Seroquel] 50 mg tablet 50 mg PO BEDTIME Qty: 90 0RF ranolazine 500 mg tablet extended release 12 hr 500 mg PO BID Qty: 60 3RF isosorbide mononitrate 30 mg tablet extended release 24 hr See Rx Instructions .ROUTE .COMPLEX Qty: 30 5RF Dose Instruction: TAKE 1 TABLET BY MOUTH DAILY Rx Instructions: TAKE 1 TABLET BY MOUTH DAILY clonazepam 2 mg tablet 2 mg PO BID PRN (Reason: Anxiety attacks) 30 Days Qty: 60 2RF tamsulosin 0.4 mg capsule 0.4 mg PO QAM Qty: 90 0RF hydrocodone-acetaminophen 5-325 mg tablet 1 tab PO Q12H PRN (Reason: pain) 28 Days Qty: 56 0RF aspirin 81 mg tablet,delayed release (DR/EC) 81 mg PO QAM Qty: 90 1RF pantoprazole 40 mg tablet,delayed release (DR/EC) 40 mg PO BID 30 Days Qty: 60 1RF buspirone 30 mg tablet 30 mg PO BID Qty: 60 2RF albuterol sulfate [Ventolin HFA] 90 mcg/actuation HFA aerosol inhaler 2 puff INHALATION Q4H PRN (Reason: Shortness Of Breath) nicotine 21 mg/24 hr patch 24 hour See Rx Instructions .ROUTE .COMPLEX Rx Instructions: Apply and change one patch daily for 6 weeks. atorvastatin 80 mg tablet 80 mg PO QAM Discharge Orders: Discharge ED (Routine); Ordered 01/16/25 Ordered By: Theodore Deras Referrals: Jarrell Espino MD [Primary Care Provider, Family Practice] Patient Instructions: Abdominal Pain (ED), Opioid Safety, Pain Management Activity Restrictions/Additional Instructions: Follow-up with your surgeon as scheduled. Print Language: Kyr[place]z Coding Level of Care Code ED Hub Associate for [facility] [place]
== END 2025-01-16 22:25 | disposition home or self-care (01) ==
PROVIDERS: Family Medicine; Emergency Provider Emergency Medicine; PCP Family Medicine
DX: R10.30 Lower abdominal pain, unspecified (principal); Z79.02 Long term (current) use of antithrombotics/antiplatelets; Z79.82 Long term (current) use of aspirin; E78.2 Mixed hyperlipidemia; I25.10 Atherosclerotic heart disease of native coronary artery without angina pectoris; J44.9 Chronic obstructive pulmonary disease, unspecified; I11.0 Hypertensive heart disease with heart failure; I50.20 Unspecified systolic (congestive) heart failure
CPT/HCPCS: 36415; 74176; 80053; 81001; 83690; 84484; 85025; 93005; 96374; 96375; 99285; J1171; J1885; J2405

== ENCOUNTER 2025-02-04 05:49 | Day surgery (SDC) | payer MEDICAID, SELFPAY ==
[2025-02-04] VITALS (11 sets, daily range): BP systolic 96–115; BP diastolic 52–69; PULSE 44–73; RESP 16–22; TEMP 36.2–36.9; O2SAT 93–99; BMI 24.8
--- NOTE | 2025-02-04 06:29 | ANES.PREANE2 ---
Pre-Anesthetic Assessment Height/Weight: Height 1.68 m Weight 69.853 kg Temp Pulse Resp BP Pulse Ox O2 Del Method 97.7 F 44 L 16 103/52 99 Room Air 02/04/25 06:05 02/04/25 06:05 02/04/25 06:05 02/04/25 06:05 02/04/25 06:05 02/04/25 06:06 Operation Date: 02/04/25 07:00 Proposed Procedures p open right inguinal hernia repair with mesh 02242, K40.90(Right) - Jeremiah Mcgovern MD Last intake: Intake Last Liquid Date 02/03/25 Last Liquid Time 19:30 Last Solid Date 02/03/25 Last Solid Time 19:30 Social Tobacco and No alcohol Exam alert, oriented x 3, clear to auscultation bilaterally and regular rate & rhythm Airway Mallampati: Class II Dentition: other (missing) Pulmonary Chronic Obstructive Pulmonary Disease CV/HEM Arrythmia (bradycardia), Coronary Artery Disease (3 stents), Congestive Heart Failure and Hypertension Cardiac event monitor Conclusion: 1. The baseline rhythm was found to be normal sinus with an overall average heart rate of 77 bpm. Frequent ventricular ectopics, mostly in the form of isolated beats, accounting for 11% of total heartbeats. Rare supraventricular ectopics 2. No symptoms of mention of any of the recorded 3. No similar previous studies are available for comparison Cath conclusions Diagnostic Cath Status: Elective Diagnostic Findings * The left main is a medium caliber vessel with no significant is noted lesions. * The left anterior descending artery is a medium caliber vessel which appears to wraparound the LV apex minimally. The proximal LAD was found to have mild diffuse significant laryngitis. Right after the first diagonal branch, there was a segmented area which was found to have around 30 to 40% in-stent narrowing. The distal LAD was found to have no significant lesions. The first diagonal branch was found to have no significant stenotic lesions.. * The left circumflex artery is a medium caliber nondominant vessel with no significant lesions. * The right coronary artery is a medium caliber vessel which had a long stented segment at the mid region. There is around 30 to 40% in-stent narrowing both at the proximal and the distal peristented area. The distal RCA and the PDA/PLV branches are found to no significant lesions.. Conclusions 1. 53-year-old white male with multiple factors for coronary disease and previous PCI's, presenting with increasing episodes of chest pains. He had a Myocardial perfusion imaging which was unremarkable. Because of the ongoing and worsening symptoms, in order to further evaluate his coronary status, a cardiac catheterization was recommended. Patient underwent left heart catheterization with left and right coronary angiogram today. The findings are as follows. 2. Left main has no significant lesions. Left and descending artery was found to have minimal in-stent narrowing in the mid segment. No severe lesions in the circumflex artery. Patent stented segment of the right coronary artery with mild around 30 to 40%.jaqueline stent stenosis. LVEDP of 10 mmHg.. Diagnostic RX Recommendation: medical therapy and/or counseling GI chronic pancreatitis Neuropsych Seizure Anesthetic Plan ASA status: 4 Anesthesia: General Risk of > 500 ml blood loss (7ml/kg in children): No Medications/Allergies Home Medications ?Medication ?Instructions ?Recorded ?Confirmed ?Last Taken ?Type Bone Growth Stimulator #1 ea 01/04/24 01/29/25 07/15/24 05:15 Rx fluticasone 100 mcg-salmeterol 50 1 inh inhalation BID #60 ea 02/05/24 01/29/25 02/02/25 Rx mcg/dose blistr powdr for inhalation (Advair Diskus) nitroglycerin 0.4 mg sublingual 0.4 mg sublingual Q5M PRN chest 02/06/24 02/03/25 Unknown Rx tablet pain 30 days #30 tabs clopidogrel 75 mg tablet 75 mg PO DAILY #90 tabs 07/28/24 02/03/25 01/30/25 Rx albuterol sulfate 90 mcg/actuation 2 puff inhalation Q4H PRN 08/24/24 02/03/25 02/02/25 History aerosol inhaler (Ventolin HFA) Shortness Of Breath nicotine 21 mg/24 hr daily See Rx Instructions .Route .COMPLEX 08/24/24 02/03/25 02/02/25 History transdermal patch atorvastatin 80 mg tablet 80 mg PO QAM 09/16/24 02/03/25 02/03/25 History potassium chloride 20 mEq 20 meq PO DAILY #90 tabs 10/13/24 02/03/25 02/03/25 Rx tablet,extended release (K-Tab) quetiapine 50 mg tablet (Seroquel) 50 mg PO BEDTIME #90 tabs 10/23/24 02/03/25 02/02/25 Rx ranolazine 500 mg tablet,extended 500 mg PO BID #60 tabs 10/24/24 02/03/25 02/03/25 Rx release,12 hr clonazepam 2 mg tablet 2 mg PO BID PRN Anxiety attacks 30 11/19/24 02/03/25 02/03/25 Rx days #60 tabs tamsulosin 0.4 mg capsule 0.4 mg PO QAM #90 caps 11/25/24 02/03/25 02/03/25 Rx aspirin 81 mg tablet,delayed 81 mg PO QAM #90 tabs 11/26/24 02/03/25 02/03/25 Rx release pantoprazole 40 mg tablet,delayed 40 mg PO BID 30 days #60 tabs 12/19/24 02/03/25 02/03/25 Rx release buspirone 30 mg tablet 30 mg PO BID #60 tabs 01/13/25 02/03/25 02/03/25 Rx isosorbide mononitrate 30 mg 30 mg PO DAILY 02/03/25 02/03/25 02/02/25 History tablet,extended release 24 hr zonisamide 100 mg capsule 100 mg PO DAILY 02/03/25 02/03/25 02/03/25 History Allergies Allergy/AdvReac Type Severity Reaction Status Date / Time meperidine (From Demerol) Allergy Severe ALGY-Hives Verified 02/04/25 06:02 Alpha-Gal Allergy upset GI Verified 02/04/25 06:02 (Nfnsezndy-Letwj-8,3-Gala (Omxgdjyxa-Tjgnw-2,3-Galactose (Alph) gabapentin AdvReac Severe ADR-Seizure Verified 02/04/25 06:02 morphine AdvReac Severe ALGY-Hives Verified 02/04/25 06:02 tramadol AdvReac Severe ADR-Seizure Verified 02/04/25 06:02 Current Medications Generic Name Dose Route Start Last Admin Trade Name Freq PRN Reason Stop Dose Admin Sodium Chloride 1,000 mls @ 30 mls/hr 02/04/25 06:00 02/04/25 06:19 Sodium Chloride 0.9% IV 02/05/25 05:59 30 mls/hr .Q24H LUKE Administration PFSH Anesthesia Medical History (Updated 02/03/25 @ 15:16 by Janny Meade) Psychiatric care History of cardiovascular stress test 02/2024 Jejunitis hx in 07/2024 Chronic pancreatitis Panic attacks NSTEMI (non-ST elevated myocardial infarction) CAD (coronary artery disease) Cath 06/2024 30-40% stenosis in previously treated segment of RCA Colitis Direct inguinal hernia of right side COVID-19 (~04/2023) Moderate major depression Generalized anxiety disorder Alpha-gal syndrome Heart failure with mildly reduced ejection fraction (HFmrEF) Chronic abdominal pain Hyponatremia H. pylori duodenitis Elevated glucose Anxiety and depression Alpha galactosidase deficiency C. difficile colitis Medical marijuana use Diverticulosis seen in colonoscopy in 2023 GERD (gastroesophageal reflux disease) Urethral stricture COPD (chronic obstructive pulmonary disease) Essential (primary) hypertension Seizure disorder Mixed hyperlipidemia Osteoarthritis rt knee, cervical and Lumbar spine Surgical History History of cardiac catheterization 06/2024 - multiple prior PCIs, LM no sig stenosis, LAD minimal in-stent narrowing mid segment, LCx no severe lesions, Patent stented RCA with 30-40% jaqueline-stent stenosis. Recs: Medical therapy Status post lumbar spinal fusion L5/S1 & L4/L5 fusion, Dr Da Silva History of esophagogastroduodenoscopy (EGD) 2021. Showing esophagitis, gastritis, and duodenitis with + H.pylori biopsies History of back surgery Status post right knee replacement Hx of reconstruction of anterior cruciate ligament tear H/O neck surgery H/O left knee surgery History of appendectomy History of cholecystectomy H/O right knee surgery arthroscopic R lateral meniscetomy, chrondroplasty H/O chest tube placement H/O removal of testicle Stented coronary artery Family History Brother Parkinson disease Cancer Diabetes Stroke Bone cancer Family/Other Cancer Chronic kidney disease (CKD) Suicide Esophageal cancer Lung cancer Grandmother CAD (coronary artery disease) Cancer Lung disease Grandfather Dementia Mother Lung disease Father Suicide Other Colitis Denies family history of Clotting disorder Anesthesia complication Bleeding disorder Social History Smoking and tobacco/nicotine status: current every day tobacco/nicotine user cigarettes [ Other cigarette details: 1cig, 40PY] Quit status (tobacco/nicotine): has tried quititng Alcohol intake: never Substance/Drug Use: current Substance/Drug use frequency: daily Other substance/drug use details: medical card Lives independently: Yes Household members: significant other service: No Current occupational status: disabled Current occupational exposures/hazards: Yes Do you think of yourself as: Straight/Heterosexual Current gender identity: Male Data Anesthesia Cardiac Studies: Echocardiogram 08/25/24 Echocardiogram Limited Views 08/07/22 Sestamibi Stress Test (Cardiology) 02/29/24 Cardiac Event Monitor 12/25/24
[2025-02-04] MEDS: ceFAZolin 2,000 mg SDV 2000 MG IVP (07:06)
--- NOTE | 2025-02-04 07:06 | W.PM.OPSFHP ---
Same Day Surgery H&P Indication for Procedure/HPI DATE OF PROCEDURE: February 04, 2025 CHIEF COMPLAINT/INDICATIONFOR SURGICAL PROCEDURE: symptomatic right inguinal hernia PREOP DIAGNOSIS: symptomatic right inguinal hernia PLANNED PROCEDURE: Operation Date: 02/04/25 07:00 Proposed Procedures p open right inguinal hernia repair with mesh 14949, K40.90(Right) - Jeremiah Mcgovern MD Medications/Allergies* Home Medications ?Medication ?Instructions ?Recorded ?Confirmed ?Type albuterol sulfate 90 mcg/actuation 2 puff inhalation Q4H PRN 08/24/24 02/03/25 History aerosol inhaler (Ventolin HFA) Shortness Of Breath nicotine 21 mg/24 hr daily See Rx Instructions .Route .COMPLEX 08/24/24 02/03/25 History transdermal patch atorvastatin 80 mg tablet 80 mg PO QAM 09/16/24 02/03/25 History isosorbide mononitrate 30 mg 30 mg PO DAILY 02/03/25 02/03/25 History tablet,extended release 24 hr zonisamide 100 mg capsule 100 mg PO DAILY 02/03/25 02/03/25 History Allergies/Adverse Reactions Allergy/AdvReac Type Severity Reaction Status Date / Time meperidine (From Demerol) Allergy Severe ALGY-Hives Verified 02/04/25 06:02 Alpha-Gal Allergy upset GI Verified 02/04/25 06:02 (Peurwhrfl-Swdys-0,3-Gala (Njqcocbhe-Ckpoo-6,3-Galactose (Alph) gabapentin AdvReac Severe ADR-Seizure Verified 02/04/25 06:02 morphine AdvReac Severe ALGY-Hives Verified 02/04/25 06:02 tramadol AdvReac Severe ADR-Seizure Verified 02/04/25 06:02 Current Medications: Generic Name Dose Route Start Last Admin Trade Name Freq PRN Reason Stop Dose Admin Sodium Chloride 1,000 mls @ 30 mls/hr 02/04/25 06:00 02/04/25 06:19 Sodium Chloride 0.9% IV 02/05/25 05:59 30 mls/hr .Q24H LUKE Administration Pertinent History/Comorbid Conditions* Medical History (Updated 02/03/25 @ 15:16 by Janny Meade) Psychiatric care History of cardiovascular stress test 02/2024 Jejunitis hx in 07/2024 Chronic pancreatitis Panic attacks NSTEMI (non-ST elevated myocardial infarction) CAD (coronary artery disease) Cath 06/2024 30-40% stenosis in previously treated segment of RCA Colitis Direct inguinal hernia of right side COVID-19 (~04/2023) Moderate major depression Generalized anxiety disorder Alpha-gal syndrome Heart failure with mildly reduced ejection fraction (HFmrEF) Chronic abdominal pain Hyponatremia H. pylori duodenitis Elevated glucose Anxiety and depression Alpha galactosidase deficiency C. difficile colitis Medical marijuana use Diverticulosis seen in colonoscopy in 2023 GERD (gastroesophageal reflux disease) Urethral stricture COPD (chronic obstructive pulmonary disease) Essential (primary) hypertension Seizure disorder Mixed hyperlipidemia Osteoarthritis rt knee, cervical and Lumbar spine Surgical History (Updated 11/13/24 @ 00:00 by PEDRO Ziegler) History of cardiac catheterization 06/2024 - multiple prior PCIs, LM no sig stenosis, LAD minimal in-stent narrowing mid segment, LCx no severe lesions, Patent stented RCA with 30-40% jaqueline-stent stenosis. Recs: Medical therapy Status post lumbar spinal fusion L5/S1 & L4/L5 fusion, Dr Da Silva History of esophagogastroduodenoscopy (EGD) 2021. Showing esophagitis, gastritis, and duodenitis with + H.pylori biopsies History of back surgery Status post right knee replacement Hx of reconstruction of anterior cruciate ligament tear H/O neck surgery H/O left knee surgery History of appendectomy History of cholecystectomy H/O right knee surgery arthroscopic R lateral meniscetomy, chrondroplasty H/O chest tube placement H/O removal of testicle Stented coronary artery Family History (Updated 09/29/24 @ 22:03 by Kami Landry MD) Esophageal cancer Family/Other Diabetes Brother Bone cancer Brother CAD (coronary artery disease) Grandmother Colitis Dementia Grandfather Chronic kidney disease (CKD) Family/Other Suicide Family/Other Father Lung cancer Family/Other Lung disease Grandmother Mother Cancer Brother Family/Other Grandmother Parkinson disease Brother Stroke Brother Denies family history of Clotting disorder Anesthesia complication Bleeding disorder Social History Smoking and tobacco/nicotine status: current every day tobacco/nicotine user cigarettes [ Other cigarette details: 1cig, 40PY] Quit status (tobacco/nicotine): has tried quititng Alcohol intake: never Substance/Drug Use: current Substance/Drug use frequency: daily Other substance/drug use details: medical card Lives independently: Yes Household members: significant other service: No Current occupational status: disabled Current occupational exposures/hazards: Yes Do you think of yourself as: Straight/Heterosexual Current gender identity: Male Pertinent Exam Findings alert, oriented x 3, clear to auscultation bilaterally, regular rate & rhythm, operative site marked and procedure specific exam findings Abdomen soft, nt, nd Right groin marked in preop. Small inguinal hernia on exam. Recommendations Risks and benefits of procedure reviewed and Patient/family agree to proceed Surgery/Procedure today Other Plans: Patient understands that the hernia is small. We will repair the hernia in an attempt to reduce his discomfort, however, this will not address the chronic abdominal pain that he complains of on the left flank. He also understands this. Patient understands the risks and benefits and decides to proceed. Partner witnessed this discussion. Coding Level of Care Code Acute Code for [employer] [place]
[2025-02-04] MEDS: BUPivacaine 0.25% INJ 30 mL 10 ML INJECTION (07:49)
[2025-02-04] MEDS: lidocaine-epi 1% 20 mL INJ 10 ML INJECTION (07:50)
--- NOTE | 2025-02-04 07:57 | PM.OP ---
Operative Report Date of procedure: February 04, 2025 Pre-op diagnosis: Right inguinal hernia Post-op diagnosis: same Post-op findings: Direct indirect right inguinal hernia Procedure done: Open right inguinal hernia repair with mesh Implants: Plug and patch mesh medium size Specimens removed/disposition: N/A Pathology: none sent Surgeon: Jeremiah Mcgovern MD Trader Fixed Income: N/A Anesthesia: General Estimated blood loss (mL): 10 Complications: N/A Findings: Medium sized direct and indirect inguinal hernia. Plug placed at deep inguinal ring. Posterior wall reinforced with mesh patch. Hernia sac reduced back into the abdomen. Condition: stable Disposition: same day Brief History: 54-year-old male who presented with a symptomatic right inguinal hernia. Discussed risk and benefits and patient agreed to proceed with open right inguinal hernia repair. Procedure: Patient brought to the OR and placed supine on the table. SCDs were placed and functioning. Preoperative ancef was administered. General anesthesia was induced. A garcia catheter was placed without any complications. The right groin was prepped and draped in the usual sterile fashion. Local infiltration at the surgical site was done using lidocaine/bupivacaine with epinephrine. A 5cm incision was carried out over the right inguinal canal. Tissue dissection was carried down to the external oblique fascia using electrocautery. The fascia was incised and the cord structures were identified. Cord structures were dissected of the hernia sac. I identified a medium indirect as well as a direct inguinal hernia. The hernia sac was dissected and reduced into the abdomen. The plug was placed at the site of the deep inguinal ring and the posterior wall of the inguinal canal was reinforced using a mesh patch. The plug was fixed using 2-0 ethibond to the cojoint ligament and inguinal ligament with interrupted sutures. The mesh patch was sutured to the cojoint tendon and the inguinal ligament using interrupted sutures with 2-0 ethibond. The external oblique fascia was closed using 3-0 vicryl. Skin was closed using 4-0 monocryl and surgical glue. Garcia was removed. The patient woke up from anesthesia and was transferred to PACU without any complications.
[2025-02-04] MEDS: oxyCODONE 5 mg IR Tab/Cap PO (09:12)
--- NOTE | 2025-02-04 09:30 | ANE.PACU2 ---
Inpatient post-anesthesia follow up: Airway intact: Yes Vital signs: Temperature 98.5 F Pulse Rate 68 Respiratory Rate 17 Blood Pressure 115/52 Pulse Oximetry 99 Oxygen Delivery Me thod Room Air Oxygen Flow Rate Fraction of Inspir ed Oxygen Hydration adequate: Yes Nausea and vomiting: No Pain level: 1 Mental status: Baseline
== END 2025-02-04 09:30 | disposition home or self-care (01) ==
PROVIDERS: PCP Family Medicine; Visit Provider Student in an Organized Health Care Education/Training Program
PROC: (CPT 49505; principal; 2025-02-04 07:00)
DX: K40.90 Unilateral inguinal hernia, without obstruction or gangrene, not specified as recurrent (principal); J44.9 Chronic obstructive pulmonary disease, unspecified; R00.1 Bradycardia, unspecified; I25.10 Atherosclerotic heart disease of native coronary artery without angina pectoris; I11.0 Hypertensive heart disease with heart failure; I50.9 Heart failure, unspecified; K86.1 Other chronic pancreatitis; R56.9 Unspecified convulsions; Z79.82 Long term (current) use of aspirin; K21.9 Gastro-esophageal reflux disease without esophagitis; Z91.014 Allergy to mammalian meats; E78.2 Mixed hyperlipidemia; F12.90 Cannabis use, unspecified, uncomplicated
CPT/HCPCS: 49505; 51702; C1781; J0131; J0690; J3010; J3490; J7030; J9999

== ENCOUNTER → 2025-02-16 08:09 | Outpatient (BNVA) | payer MEDICAID, SELFPAY | PROVIDERS: PCP Family Medicine; Visit Provider Student in an Organized Health Care Education/Training Program | DX: Z98.890 Other specified postprocedural states (principal) | CPT/HCPCS: 99024 ==

== ENCOUNTER 2025-03-16 08:53 | Outpatient (CLI) | payer MEDICAID, SELFPAY ==
--- NOTE | 2025-03-16 09:04 | XRR_ITS ---
PROCEDURE INFORMATION: Exam: XR Right Knee Exam date and time: 03/16/2025 9:10 AM Age: 54 years old Clinical indication: Pain; Knee; Right; Prior surgery; Surgery date: 6+ months; Surgery type: Replacement 2002; Additional info: Knee pain. No history of recent trauma or surgery is otherwise provided. TECHNIQUE: Imaging protocol: Radiologic exam of the right knee. 3image(s) are provided. Views: 3 views. COMPARISON: CR XR knees AP WB w RT lmt ORTH 11/05/2023 4:09 PM FINDINGS: Bones/joints: Osseous alignment is maintained. No interval displaced fracture or dislocation is appreciated. The joint prosthetic surgical hardware residual appears similar in alignment. No significant interval periprosthetic lucency is currently appreciated with the residual ACL repair type screw femoral level. There appears to be a small amount of joint fluid. Soft tissues: No radiopaque foreign body or subcutaneous emphysema is appreciated. No other significant interval changes are appreciated. XR/XR knee RT 3V* [id number] IMPRESSION: Osseous and surgical hardware alignment appear maintained with no interval fracture or dislocation appreciated.
== END 2025-03-16 08:54 | disposition home or self-care (01) ==
PROVIDERS: PCP Family Medicine; Visit Provider Family Medicine
DX: M17.11 Unilateral primary osteoarthritis, right knee (principal); Z96.698 Presence of other orthopedic joint implants; M25.461 Effusion, right knee; K40.90 Unilateral inguinal hernia, without obstruction or gangrene, not specified as recurrent
CPT/HCPCS: 73562; 99213

== ENCOUNTER → 2025-03-26 10:48 | Outpatient (BNVA) | payer MEDICAID, SELFPAY | PROVIDERS: PCP Family Medicine; Visit Provider Orthopaedic Surgery | DX: Z98.1 Arthrodesis status (principal); M48.062 Spinal stenosis, lumbar region with neurogenic claudication | CPT/HCPCS: 72110; 99213 ==

== ENCOUNTER 2025-04-10 13:45 | Outpatient (CLI) | payer MEDICAID, SELFPAY ==
--- NOTE | 2025-04-10 13:45 | MR_ITS ---
WS: [id number] MRI LUMBAR SPINE NONCONTRAST HISTORY: Back Pain COMPARISON: 11/21/2023 TECHNIQUE: Sagittal and axial multisequence imaging is submitted. Anterior fusion hardware in the cervical spine. New posterior lumbar fusion extending from L4-S1 since 11/21/2023. Interbody spacers at L4-5 and L5-S1. Alignment appears appropriate. Disc spaces and vertebral body heights are well-preserved. Conus terminates normally at L1-2 disc level. L1-L2: Normal. L2-L3: Mild ligamentum flavum hypertrophy. No stenosis. Mild facet arthritis. L3-L4: Mild annular disc bulging with narrowing of the subarticular recesses. Increasing facet arthritis and ligamentum flavum hypertrophy. There has been a slight increase in the central and subarticular recess stenosis since 11/21/2023. There is slightly greater disc bulging to the RIGHT extending into the foramen as compared to the prior study. Mild RIGHT foraminal stenosis. L4-L5: Mild annular disc bulging. Patulous thecal sac due to large laminectomy defect. LEFT paracentral disc protrusion is no longer present. Bilateral facet joint arthritis. Mild to moderate bilateral foraminal stenosis. L5-S1: Diffuse disc bulging. Patulous thecal sac from prior laminectomy. LEFT foramen is obscured by artifact. Mild foraminal narrowing on the RIGHT. Bilateral renal cysts. MR/MR lumbar spine wo con* [id number] IMPRESSION: 1. Status post posterior lumbar fusion from L4-S1 with interbody spacers at L4 -5 and L5-S1. 2. Mild progression of central and subarticular recess stenosis at L3-4 since the prior exam. Slightly progressed disc protrusion in the RIGHT foramen with m ild RIGHT foraminal stenosis. 3. Prior laminectomy defects at L4-5 and L5-S1. 4. Mild to moderate foraminal stenosis at L4-5 and mild on the RIGHT at L5-S1.
== END 2025-04-10 13:46 | disposition home or self-care (01) ==
LOC: RAD 13:45
PROVIDERS: PCP Family Medicine; Visit Provider Orthopaedic Surgery
DX: M48.061 Spinal stenosis, lumbar region without neurogenic claudication (principal)
CPT/HCPCS: 72148

== ENCOUNTER → 2025-04-13 13:16 | Outpatient (BNVA) | payer MEDICAID, SELFPAY | PROVIDERS: PCP Family Medicine; Visit Provider Orthopaedic Surgery | DX: M25.561 Pain in right knee (principal); G89.29 Other chronic pain | CPT/HCPCS: 99214 ==

== ENCOUNTER → 2025-04-14 10:21 | Outpatient (BNVA) | payer MEDICAID, SELFPAY | PROVIDERS: PCP Family Medicine; Visit Provider Orthopaedic Surgery | DX: M54.50 Low back pain, unspecified (principal); Z98.1 Arthrodesis status | CPT/HCPCS: 99213 ==

== ENCOUNTER 2025-04-20 16:20 | Inpatient (IN) | payer MEDICAID, SELFPAY ==
--- OUTSIDE RECORDS SUMMARY | 2024-05-24 04:00 | XMS_ITS ---
Author Organization [facility] Address [address] [place] [address] Care Team Providers Care Inorganic Chemist Name Role Phone Jarrell Hernandez Primary Care Provider Unavailabl e Migration, Provider Unavailable Unavailable REASON FOR VISIT EMR-Darrin Encounters Encounter Location Date Provider Diagnosis Migrated_Facility 0 0 05/24/2024 Provider Migration Plan Of Treatment No Information Progress Notes * Josue RENTERIADOB:07/1970 (54 yo M)Acc No.[id number]:05/24/2024 Patient: Josue GLASER :1970 A ge:53 Y S ex:Male Address:[address] [place] [address] , [place], [address] Subjective: * Chief Complaints: * E MR-Darrin * * Date:
--- OUTSIDE RECORDS SUMMARY | 2024-05-25 04:00 | XMS_ITS ---
Author Organization [facility] Address [address] [place] [id number] Care Team Providers Care Sales Engineer Account Manager Name Role Phone Jarrell Hernandez Primary Care [...] Notes * Josue RENTERIADOB:07/1970 (54 yo M)Acc No.[id number]:05/25/2024 Patient: Josue GLASER :1970 A ge:53 Y S ex:Male Address:[address] [place] [address] Subjective: * Chief Complaints: * E MR-Darrin [...]
[2025-04-20] VITALS (10 sets, daily range): BP systolic 116–156; BP diastolic 72–95; PULSE 60–72; RESP 10–18; TEMP 36.7; O2SAT 96–99
--- OUTSIDE RECORDS SUMMARY | 2025-04-20 16:24 | XMS_ITS | Encounter Summary ---
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 Name Role Phone Unavailable Primary Care Provider Unavailabl e Reason for Referral * Outpatient Services (Routine) - Closed Specialty Diagnoses / Procedures Referred By Joycelyn t Referred To Contact Diagnoses Cervical spondylosis without myelopathy Procedures XR FLUORO NEEDLE GUIDANCE Theodore Garrido MD Phone: tel: fax: Referral ID Status Reason Start Date Expiration Date Visits Re quested Visits Authorized [id number] Closed 11/04/2014 12/05/2015 1 1 Encounter Details Date Type Department Care Team (Late st Contact Info) Description 11/04/2014 Ancillary Orders [facility] Pain Management Procedures [place] [address] [place] [id number] [place] [address] [facility] [address] [place] [address] Cervical spondylosis without myelopathy (Primary Dx) Social History Tobacco Use Types Packs/Day Years Used Date Smoking Tobacco: Every Day E-Cigarette/M ist Inhalation Device Smokeless Tobacco: Never Alcohol Use Standard Drinks/Week Comments No 0 (1 standard drink = 0.6 oz pur e alcohol) Sex and Gender Information Value Date Recorded Sex Assigned at Not on file Legal Sex Male 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 Exam was auto-finalized. Theodore Garrido MD DIAGNOSTIC IMAGING ORDERABLES Final Result documented in this encounter Visit Diagnoses Diagnosis Cervical spondylosis without myelopathy- Primary Cervical spondylosis without myelopathy documented in this encounter
--- OUTSIDE RECORDS SUMMARY | 2025-04-20 16:24 | XMS_ITS | Clinical Summary ---
Author Organization [facility] Address [address] [place]: Epic Prelude ADT DAQUAN GARDUNO [address] Care Team Providers Care Outbound Sales Consultant Name Role Phone Davy Blanton MD Primary Care Provider [phone] Allergies Active Allergy Reactions Criticality Noted Date Comments Alpha-Gal (Kuxggozpu-Kwdhm-6,3-Galactose) Nausea and Vomiting Low 09/12/2024 Gabapentin Seizure High 01/08/2015 Meperidine Hives High 10/15/2014 Morphine Hives High 10/15/2014 Tramadol Seizure High 01/08/2015 Unclassified Drug Abdominal Pain Low 03/14/2023 Medications nitroglycerin (NITROSTAT) 0.4 mg Tablet, Sublingual Place 0.4 mg under tongue every 5 minutes as needed for Chest Pain. Active albuterol sulfate 90 mcg/Actuation inhalerIndicatio ns:Chronic obstructive pulmonary disease, unspecified COPD type (CMS/HCC) Take 1 Puff by inhalation every 6 hours as needed for Shortness of Breath. 8.5 Gram 11 1 Active naloxone (NARCAN) 4 mg/spray [place], Non-Aerosol EMERGENCY USE ONLY: Administer 1 spray (4 mg) in one nostril one time. May repeat in alternating nostrils every 2-3 min until responsive or EMS arrives. 2 Each 3 2 Active Additional Information Patient not taking.Reported on 12/06/2023 multivitamin (DAILY-FAHAD) tablet Take 1 Tablet by mouth daily. 5 Active aspirin (ECOTRIN EC) 81 mg Tablet, Delayed Release (E.C.) Take 81 mg by mouth daily. 5 Active clopidogreL (PLAVIX) 75 mg Tablet Take 75 mg by mouth daily. 9 Active promethazine (PHENERGAN) 12.5 mg TabletIndication s:Cyclical vomiting Take 1 Tablet (12.5 mg) by mouth every 6 hours as needed for Nausea/Emesis. 30 Tablet 5 3 Active ondansetron (ZOFRAN) 4 mg TabletIndication s:Cyclical vomiting Take 1 Tablet (4 mg) by mouth every 8 hours as needed for Nausea/Emesis. 30 Tablet 3 Active budesonide (PULMICORT RESPULE) 0.5 mg/2 mL Suspension for NebulizationIndi cations:Chronic obstructive pulmonary disease, unspecified COPD type (CMS/HCC) Take 2 mL (0.5 mg) by inhalation 2 times daily as needed for Other (See Comment) (COPD exacerbation). 120 mL 11 3 Active ipratropium-albu teroL (DUONEB) 0.5 mg-3 mg(2.5 mg base)/3 mL Solution for Nebulization Take 3 mL by inhalation every 6 hours as needed for Shortness of Breath. 300 mL 11 3 Active atorvastatin (LIPITOR) 80 mg tablet Take 80 mg by mouth daily. 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 60 Tablet 5 4 Active tamsulosin (FLOMAX) 0.4 mg capsuleIndicatio ns:Benign prostatic hyperplasia without lower urinary tract symptoms Take 1 Capsule (0.4 mg) by mouth daily. 30 Capsule 5 4 Active Zonisamide (ZONEGRAN) 100 mg capsuleIndicatio ns:Chronic pain syndrome Take 2 Capsules (200 mg) by mouth 2 times daily. 120 Capsule 5 4 Active clonazePAM (KlonoPIN) 2 mg tabletIndication s:Moderate episode of recurrent major depressive disorder (CMS/HCC),DIMITRI (generalized anxiety disorder) take 1 tablet by mouth twice daily as needed for anxiety 60 Tablet 2 4 Active busPIRone (BUSPAR) 30 mg TabletIndication s:DIMITRI (generalized anxiety disorder) take 1 tablet by mouth twice daily 200 Tablet 1 4 Active QUEtiapine (SEROquel) 50 mg tabletIndication s:Moderate episode of recurrent major depressive disorder (CMS/HCC) TAKE 1 TABLET BY MOUTH EVERY DAY AT BEDTIME 100 Tablet 4 Active ranolazine ER (RANEXA) 500 mg Extended Release 12 hour tablet Take 1 Tablet by mouth 2 times daily. 5 Active prochlorperazine maleate (COMPAZINE) 10 mg tablet Take 1 Tablet (10 mg) by mouth every 6 hours as needed for Nausea/Emesis. 30 Tablet 5 Active fluticasone propion-salmeter oL (Advair Diskus) 100-50 mcg/dose disk inhalerIndicatio ns:Chronic obstructive pulmonary disease, unspecified COPD type (CMS/HCC) inhale one PUFF BY MOUTH TWICE DAILY 60 Each 5 Active polyethylene glycol 3350 (MIRALAX) 17 gram/dose PowderIndication s:Alternating constipation and diarrhea Take 1 Scoop (17 Grams) by mouth 2 times daily. Dissolve in 8 ounces of fluid and drink entire liquid 527 Gram 11 5 Active psyllium (FIBER-CAP) 0.52 gram CapsuleIndicatio ns:Alternating constipation and diarrhea Take 3 Capsules by mouth 3 times daily. 5 Active Active Problems Problem Noted Date Diagnosed [...] lower urinary tract symptoms 04/18/2021 Atherosclerosis of [place] co ronary artery of [place] heart with stable angina pectoris 02/05/2015 Cervical spondylosis with radiculopathy 02/06/20 15 History of SC (myocardial infarction) 02/05/2015 Stented coronary artery 02/05/2015 Resolved Problems Problem Noted Date Diagnosed Date Resolved Date Hypokalemia 11/14/2021 11/28/2021 Acute diarrhea 11/14/2021 11/28/2021 Acute pancreatitis 11/14/2021 Hyponatremia 03/05/2021 11/28/2021 Encounters Date Type Department Care Team Description 03/31/2025 External Device Data STL ABSTRACTION Provider, Abstract 03/12/2025 1:00 PM CDT Office Visit [facility] Gastroenter[facility] [address] Mikaela Vines, ELI Alternating constipation and diarrhea (Primary Dx); Allergy to alpha-gal; Nausea and vomiting, unspecified vomiting type 03/04/2025 External Device Data STL ABSTRACTION Provider, Abstract from Last 3 Months Immunizations Immunization Administration [...] on file Legal Sex Male 1:45 PM FOOD SERVICES COORDINATOR Gender Identity Not on file Sexual Orientation Not on file Last Filed Vital Signs Vital Sign Reading Time Taken Comments Blood Pressure 117/66 03/12/2025 12:57 PM CDT Pulse 46 03/12/2025 12:57 PM CDT Temperature 36.9 C (98.4 F) 08/28/2024 9:48 PM FOOD SERVICES COORDINATOR Respiratory Rate 16 08/29/2024 1:00 AM FOOD SERVICES COORDINATOR Oxygen Saturation 97% 08/29/2024 1:00 AM FOOD SERVICES COORDINATOR Inhaled Oxygen Concentration - - Weight 74.2 kg (163 lb 9.6 oz) 03/12/2025 12:57 PM CDT Height 167.6 cm (5' 6 ) 03/12/2025 12:57 PM CDT Body Mass Index 26.41 03/12/2025 12:57 PM CDT Plan of Treatment Upcoming Encounters Date Type Department Care Team (Late st Contact Info) Description 03/11/2026 1:00 PM CDT Office Visit [facility] Gastroenterology- [place] [address] [place] [address] Mikaela Vines, ELI [address] [address] [place] [address] Health Maintenance Due Date Last Done Comments DTAP/TDAP/TD VACCINES (1 - Tdap) 12/28/1990 HEPATITIS B VACCINES (1 of 3 - 19+ 3-dose series) 12/28/1990 Preventative Visit-Managed Medicaid 12/28/1990 FIT-DNA Q 3 years 12/28/2016 FIT/FOBT Q 1 year 12/28/2016 Flex Sig/CT Colonography Q 5 years 12/28/2016 ZOSTER VACCINE (1 of 2) 12/28/2021 Lung Cancer Screening 01/18/2024 01/17/2023 Pre-Diabetes and Diabetes Screening 05/03/202405/03 INFLUENZA VACCINE (#1) 2025 3, 05/03/2021, 10/15/2018 COVID-19 Vaccine (4 - season) 2025 07/15/2021, 09/24/2020, 08/27/2020 COLORECTAL SCREENING 04/04/2034 04/04/2024, 04/04/2024, 10/01/2020 Colorectal Cancer Screening 04/04/2034 Abdominal Aortic Aneurysm (A AA) Screening Completed 11/20/2021 Medical Devices Implanted Type Area Plumbing Engineer Device Identifier Shelf Expiration Date Model / Serial / Lot Plate Aviator 2lvl 30mm [id number] - Saviatorld#20 [id number] Implanted:Qty : 1 on 02/05/2015 by Wade Paniagua MD Plate N/A: Spine Cervical Anterior LESLIE- SPINE [id number] / AVIATORLD#2 [id number] / AVSLD#[id number] Putty Bio Dbm 1ml 79328 - [id number] Implanted:Qty : 1 on 02/05/2015 by Wade Paniagua MD Putty N/A: Spine Cervical Anterior LESLIE- SPINE 05/13/2015 97054 / [id number] / [id number] Putty Bio Dbm 2ml 82731 - [id number] Implanted:Qty : 1 on 02/05/2015 by Wade Paniagua MD Putty N/A: Spine Cervical Anterior LESLIE- SPINE 04/14/2015 26321 / [id number] / [id number] Screw Avtr Va Sd 4.0x14mm [id number] - Saviatorld#20 [id number] Implanted:Qty : 4 on 02/05/2015 by Wade Paniagua MD Screw N/A: Spine Cervical Anterior LESLIE- SPINE [id number] / AVIATORLD#2 [id number] / AVSLD#[id number] Screw Avtr Va Sd 4.0x16mm [id number] - Saviatorld#20 [id number] Implanted:Qty : 2 on 02/05/2015 by Wade Paniagua MD Screw N/A: Spine Cervical Anterior LESLIE- SPINE [id number] / AVIATORLD#2 [id number] 68 / AVSLD# [id number] Spacer Avs As 14x16 7mm 4d [id number] - Saviatorld#20 [id number] Implanted:Qty : 2 on 02/05/2015 by Wade Paniagua MD Spacer N/A: Spine Cervical Anterior LESLIE- SPINE [id number] / AVIATORLD#2 [id number] / AVSLD# [id number] Stent Implanted:Qty : 4 Stent N/A: Heart Explanted Type Area Plumbing Engineer Device Identifier Shelf Expiration Date Model / Serial / Lot Screw Avtr Va Sd 4.0x14mm [id number] - Saviatorld#20 [id number] Implanted:Wade Adam MD (Quantity not on file) Explanted:Qty : 1 on 02/05/2015 by Wade Paniagua MD Screw N/A: Spine Cervical Anterior LESLIE- SPINE [id number] / AVIATORLD#2 [id number] / AVSLD#[id number] Procedures Procedure Name Priority Date/Time Associated Diagnosis Comments COLONOSCOPY REPORT 04/04/2024 7: [address] LUNG SCREENING (LDCT BASELINE OR ANNUAL) Routine 01/17/2023 1:[address] ABDOMEN PELVIS WO CONTRAST Stat 11/20/2021 8:32 PM CDT HEMOGLOBIN A1C Routine 05/03/2021 11:50 AM CDT Hyperglycemia from Last 3 Months or Most Recently Relevant to Health Maintenance Results * COLONOSCOPY REPORT (04/04/2024 7:53 AM CDT) Narrative Procedure Note Hemanth Salmeron MD - 04/04/2024 7:53 AM CDT [facility] GI Patient Name: Josue Cheng Procedure [...] 7:38:54 AM Scope Out: 7:49:45 AM [address] [place], [place] Hemanth Salmeron MD GI PROCEDURE ORDERABLES [...] screening with LDCT in 12 months. . us Davy Blanton MD CT ORDERABLES Final Res ult * CT ABDOMEN PELVIS WO CONTRAST (11/20/2021 8:32 PM CDT) Anatomical Region Laterality Modality Abdomen Computed Tomogra phy 11/20/2021 8:32 PM CDT Impressions 11/20/2021 9:00 PM CDT IMPRESSION: No acute abnormality identified within the abdomen and pelvis. No abnormal bowel distention. No suspected bowel obstruction. Chronic findings as described. [id number] Narrative 11/20/2021 9:00 PM CDT Exam: CT [...] suspected bowel obstruction. Chronic findings as described. [id number] Kareem Carlos A Fofana DO CT ORDERABLES Final R esult * HEMOGLOBIN A1C (05/03/2021 11:50 AM CDT) HEMOGLOBIN A1C 5.1 <5.7 % of total Hgb [facility] Comment: For the purpose of screening for the presence of diabetes: <5.7% Consistent with the absence of diabetes 5.7-6.4% Consistent with increased risk for diabetes (prediabetes) > or =6.5% Consistent with diabetes This assay result is consistent with a decreased risk of diabetes. Currently, no consensus exists regarding use of hemoglobin A1c for diagnosis of diabetes in children. According to [place] Diabetes Association (ADA) guidelines, hemoglobin A1c <7.0% represents optimal control in non- diabetic patients. Different metrics may apply to specific patient populations. Standards of Medical Care in Diabetes(ADA). [facility] [address] [place] [address] Gee Hansen D.O., MPH Blood 05/03/2021 11:5 0 AM CDT 05/04/2021 4:28 AM CDT Davy Blanton MD CHEMISTRY ORDERABLES Lyly mcmillan Result [facility] [address] [place] [address] from Last 3 Months or Most Recently Relevant to Health Maintenance Insurance MEDICAID [place] Advance Directives For more information, please contact: [phone] * Full Code (Latest Code Status on File) Date Activated Date Inactivated Comments 04/04/2024 6:58 AM 04/04/2024 10:27 AM * Full Code Date Activated Date Inactivated Comments 11/14/2021 8:51 PM 11/15/2021 1:41 PM * Full Code Date Activated Date Inactivated Comments 03/05/2021 12:43 AM 03/07/2021 5:22 PM Care Teams Outbound Sales Consultant Relationship Specialty Start Date End Date Davy Blanton MD [address] [place] [address] PCP - General Family Practice 04/18/21
--- OUTSIDE RECORDS SUMMARY | 2025-04-20 16:25 | XMS_ITS | Patient Health Record ---
Author Organization [facility] Address [address] [place] [address] Care Team Providers Care Tanker Truck Driver Name Role Phone Jarrell Hernandez Primary Care Provider Unavailabl e Migration, Provider Unavailable Unavailable Reason For Referral No Information Medications Medication SIG (Take, Route, Frequency, Duration) Notes Start Date End Date Status CeleXA *Pick strength-f orm from Medispan for eRX* Active clopidogrel bisulfate (bulk) *Reorder from Medispan for eRx and Interaction Alerts* Active Creon *Pick strength-f orm from Medispan for eRX* Active Isosorbide Mononitrate *Pick strength-form from Medispan for eRX* Active clonazePAM *Pick strength-f orm from Medispan for eRX* Active Meloxicam *Pick strength-f orm from Medispan for eRX* Active Potassium Chloride *Pick strengt h-form from Medispan for eRX* Active Nicotine *Pick strength-f orm from Medispan for eRX* Active Nitrostat *Pick strength-f orm from Medispan for eRX* Active SEROquel *Pick strength-f orm from Medispan for eRX* Active Buspirone *Reorder from Medispan for eRx and Interaction Alerts* Active Aspirin *Pick strength-f orm from Medispan for eRX* Active Zonegran *Pick [...] Diagnosis Migrated_Facility 0 0 05/24/2024 Provider Migration Migrated_Facility 0 0 05/25/2024 Provider Migration Plan Of Treatment No Information Medical (General) History Surgical History Surgery Date(Month/Year) ACL Surgery Appendectomy Gallbladder removal Heart stents Neck surgery right knee replacement Torsion of testicle
--- OUTSIDE RECORDS SUMMARY | 2025-04-20 16:25 | XMS_ITS | Clinical Summary ---
Author Organization [facility] Address [address] [place] [address] Phone Care Team Providers Care Manager Information Name Role Phone Unavailable Primary Care Provider [...] 02/06/20 15 CAD (coronary atherosclerotic disease) 5 CA, old 02/05/2015 Stented coronary artery 02/05/2015 Social History Tobacco Use Types Packs/Day Years Used Date Smoking Tobacco: Every Day E-Cigarette/M ist Inhalation Device Smokeless Tobacco: Never Alcohol Use Standard Drinks/Week Comments No 0 (1 standard drink = 0.6 oz pur e alcohol) Sex and Gender Information Value Date Recorded Sex Assigned at Not on file Legal Sex Male 1:24 PM 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/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 EXPORT CLERK Gender Identity Not on file Sexual Orientation Not on file Last Filed Vital Signs Vital Sign Reading Time Taken Comments Blood Pressure 125/90 03/05/2019 9:57 AM CDT Pulse 85 11/29/2015 1:03 PM CDT Temperature 36.3 C (97.4 F) 11/29/2015 1:03 PM CDT Respiratory Rate 16 02/07/2015 7:18 AM CDT [...] 12/28/2016 ZOSTER VACCINE (1 of 2) 12/28/2021 INFLUENZA VACCINE (#1) 2025 10/15/2018 Medical Devices Implanted Type Area Adding Machine Operator Device Identifier Shelf Expiration Date Model / Serial / Lot Plate Aviator 2lvl 30mm [id number] - Saviatorld#2015 [id number] Implanted:Qty: 1 on 02/05/2015 by Wade Paniagua MD at [facility] Plate N/A: Spine Cervical Anterior LESLIE- SPINE [id number] / AVIATORLD#2 [id number] / AVSLD#[id number] Putty Bio Dbm 2ml 04182 - [id number] Implanted:Qty: 1 on 02/05/2015 by Wade Paniagua MD at [facility] Putty N/A: Spine Cervical Anterior LESLIE- SPINE 04/14/2015 [id number] / [id number] / [id number] Putty Bio Dbm 1ml 22842 - [id number] Implanted:Qty: 1 on 02/05/2015 by Wade Paniagua MD at [facility] Putty N/A: Spine Cervical Anterior LESLIE- SPINE 05/13/2015 91200 / [id number] / [id number] Screw Avtr Va Sd 4.0x14mm [id number] - Saviatorld#2014 [id number] Implanted:Qty: 4 on 02/05/2015 by Wade Paniagua MD at [facility] Screw N/A: Spine Cervical Anterior LESLIE- SPINE [id number] / AVIATORLD#2 [id number] 68 / AVSLD#[id number] Screw Avtr Va Sd 4.0x16mm [id number] - Saviatorld#2014 [id number] Implanted:Qty: 2 on 02/05/2015 by Wade Paniagua MD at [facility] Screw N/A: Spine Cervical Anterior LESLIE- SPINE [id number] / AVIATORLD#2 [id number] / AVSLD#[id number] Spacer Avs As 14x16 7mm 4d [id number] - Saviatorld#2014 [id number] Implanted:Qty: 2 on 02/05/2015 by Wade Paniagua MD at [facility] Spacer N/A: Spine Cervical Anterior LESLIE- SPINE [id number] / AVIATORLD#2 [id number] / AVSLD#[id number] Explanted Type Area Adding Machine Operator Device Identifier Shelf Expiration Date Model / Serial / Lot Screw Avtr Va Sd 4.0x14mm [id number] - Saviatorld#2014 [id number] Implanted:Wade Paniagua MD (Quantity not on file) Explanted:Qty: 1 on 02/05/2015 by Wade Paniagua MD at [facility] Screw N/A: Spine Cervical Anterior LESLIE- SPINE [id number] / AVIATORLD#2 [id number] 68 / AVSLD#[id number] Insurance MEDICAID [place]ID [place] Advance Directives For more information, please contact: [phone] * Full Code (Latest Code Status on File) Date Activated Date Inactivated Comments 02/05/2015 6:22 AM 02/07/2015 1:44 PM
--- NOTE | 2025-04-20 18:19 | W.ED.NAVMDI ---
Documented by User: Alivia Alfaro MD 04/20/25 20:32 HPI - Nausea/Vomiting/Diarrhea General: Chief complaint: Nausea/Vomiting/Diarrhea Stated complaint: n/v/d, weakness x3 days Time Seen by Provider: 04/20/25 16:27 History of Present Illness: 54-year-old man with a history of panic attacks, coronary artery disease, depression, anxiety, alpha gal syndrome, hyponatremia, hypertension, COPD, seizure disorder and he reports a history of pancreatitis in the past who presents emergency room with abdominal cramping. Nausea and vomiting. Diarrhea. Has been going on for 3 days now. No focal abdominal pain. He says just at times he will get a lot of cramping. No fevers. No altered mental status. No dysuria. Related Data Home Medications ?Medication ?Instructions ?Recorded ?Confirmed albuterol sulfate 90 mcg/actuation 2 puff inhalation Q4H PRN 08/24/24 04/14/25 aerosol inhaler (Ventolin HFA) Shortness Of Breath nicotine 21 mg/24 hr daily See Rx Instructions .Route .COMPLEX 08/24/24 04/14/25 transdermal patch atorvastatin 80 mg tablet 80 mg PO QAM 09/16/24 04/14/25 isosorbide mononitrate 30 mg 30 mg PO DAILY 02/03/25 04/14/25 tablet,extended release 24 hr Previous Rx's ?Medication ?Instructions ?Recorded fluticasone 100 mcg-salmeterol 50 1 inh inhalation BID #60 ea 02/05/24 mcg/dose blistr powdr for inhalation (Advair Diskus) nitroglycerin 0.4 mg sublingual 0.4 mg sublingual Q5M PRN chest 02/06/24 tablet pain 30 days #30 tabs ranolazine 500 mg tablet,extended See Rx Instructions .Route 02/06/25 release,12 hr .COMPLEX #180 tabs tamsulosin 0.4 mg capsule 0.4 mg PO QAM #90 caps 02/06/25 zonisamide 100 mg capsule 100 mg PO DAILY #120 caps 02/06/25 aspirin 81 mg tablet,delayed 81 mg PO QAM #90 tabs 03/13/25 release clonazepam 0.5 mg tablet (Klonopin) 0.5 mg PO BID #60 tabs 03/25/25 clonazepam 0.5 mg tablet (Klonopin) 0.5 mg PO DAILY #30 tabs 03/25/25 mirtazapine 15 mg tablet 15 mg PO .HS #30 tabs 03/25/25 quetiapine 50 mg tablet (Seroquel) 50 mg PO BEDTIME #30 tabs 03/25/25 clopidogrel 75 mg tablet 75 mg PO DAILY #90 tabs 04/01/25 pantoprazole 40 mg tablet,delayed 40 mg PO BID 30 days #60 tabs 04/07/25 release potassium chloride 20 mEq 20 meq PO DAILY #90 tabs 04/07/25 tablet,extended release (K-Tab) hydrocodone 5 mg-acetaminophen 325 1 tab PO BID PRN pain 7 days #14 04/14/25 mg tablet tabs Allergies Allergy/AdvReac Type Severity Reaction Status Date / Time meperidine (From Demerol) Allergy Severe ALGY-Hives Verified 04/14/25 07:34 Alpha-Gal Allergy upset GI Verified 04/14/25 07:34 (Qgjsxwxle-Tlmtj-8,3-Gala (Xfkbuzmol-Thoog-7,3-Galactose (Alph) gabapentin AdvReac Severe ADR-Seizure Verified 04/14/25 07:34 morphine AdvReac Severe ALGY-Hives Verified 04/14/25 07:34 tramadol AdvReac Severe ADR-Seizure Verified 04/14/25 07:34 Review of Systems Narrative: Constitutional symptoms: Negative except as documented in HPI. Skin symptoms: Negative except as documented in HPI. Eye symptoms: Negative except as documented in HPI. ENMT symptoms: Negative except as documented in HPI. Respiratory symptoms: Negative except as documented in HPI. Cardiovascular symptoms: Negative except as documented in HPI. Gastrointestinal symptoms: Negative except as documented in HPI. Genitourinary symptoms: Negative except as documented in HPI. Musculoskeletal symptoms: Negative except as documented in HPI. Neurologic symptoms: Negative except as documented in HPI. Psychiatric symptoms: Negative except as documented in HPI. Endocrine symptoms: Negative except as documented in HPI. [facility] ED PFSH: Medical History (Updated 04/20/25 @ 20:30 by Alivia Alfaro MD) Psychiatric care History of cardiovascular stress test 02/2024 Jejunitis hx in 07/2024 Chronic pancreatitis Panic attacks NSTEMI (non-ST elevated myocardial infarction) CAD (coronary artery disease) Cath 06/2024 30-40% stenosis in previously treated segment of RCA Colitis Direct inguinal hernia of right side COVID-19 (~04/2023) Moderate major depression Generalized anxiety disorder Alpha-gal syndrome Heart failure with mildly reduced ejection fraction (HFmrEF) Chronic abdominal pain Hyponatremia H. pylori duodenitis Elevated glucose Anxiety and depression Alpha galactosidase deficiency C. difficile colitis Medical marijuana use Diverticulosis seen in colonoscopy in 2023 GERD (gastroesophageal reflux disease) Urethral stricture COPD (chronic obstructive pulmonary disease) Essential (primary) hypertension Seizure disorder Mixed hyperlipidemia Osteoarthritis rt knee, cervical and Lumbar spine Surgical History History of cardiac catheterization 06/2024 - multiple prior PCIs, LM no sig stenosis, LAD minimal in-stent narrowing mid segment, LCx no severe lesions, Patent stented RCA with 30-40% jaqueline-stent stenosis. Recs: Medical therapy Status post lumbar spinal fusion L5/S1 & L4/L5 fusion, Dr Da Silva History of esophagogastroduodenoscopy (EGD) 2021. Showing esophagitis, gastritis, and duodenitis with + H.pylori biopsies History of back surgery Status post right knee replacement Hx of reconstruction of anterior cruciate ligament tear H/O neck surgery H/O left knee surgery History of appendectomy History of cholecystectomy H/O right knee surgery arthroscopic R lateral meniscetomy, chrondroplasty H/O chest tube placement H/O removal of testicle Stented coronary artery Family History Brother Parkinson disease Cancer Diabetes Stroke Bone cancer Family/Other Cancer Chronic kidney disease (CKD) Suicide Esophageal cancer Lung cancer Grandmother CAD (coronary artery disease) Cancer Lung disease Grandfather Dementia Mother Lung disease Father Suicide Other Colitis Denies family history of Clotting disorder Anesthesia complication Bleeding disorder Social History Smoking and tobacco/nicotine status: current every day tobacco/nicotine user cigarettes [ Other cigarette details: 1cig, 40PY] Quit status (tobacco/nicotine): has tried quititng Alcohol intake: never Substance/Drug Use: current Substance/Drug use frequency: daily Other substance/drug use details: medical card Lives independently: Yes Household members: significant other service: No Current occupational status: disabled Current occupational exposures/hazards: Yes Do you think of yourself as: Straight/Heterosexual Current gender identity: Male Physical Exam Narrative: EXAM NARRATIVE: General: Alert, no acute distress. Skin: Warm, dry. Head: Normocephalic, atraumatic. Neck: Supple, trachea midline. Eye: Extraocular movements are intact. Ears, nose, mouth and throat: Tacky oral mucosa Cardiovascular: Regular, Normal peripheral perfusion. Respiratory: Lungs are clear to auscultation, respirations are non-labored, breath sounds are equal, Symmetrical chest wall expansion. Gastrointestinal: Soft, Nontender, Non distended Musculoskeletal: Normal ROM, no deformity. Neurological: Alert and oriented, No focal neurological deficit observed. Psychiatric: Cooperative, appropriate mood & affect. Course Vital Signs: Vital signs: Vital Signs Temperature 98.0 F 04/20/25 16:45 Pulse Rate 72 04/20/25 16:45 Respiratory Rate 18 04/20/25 16:45 Blood Pressure 137/81 04/20/25 20:31 Pulse Oximetry 97 04/20/25 20:31 Oxygen Delivery Me thod Room Air 04/20/25 20:07 MDM - Nausea/Vomiting/Diarrhea Medical Decision Making Medical decision making: Differential diagnosis for this patient with nausea and vomiting including but not limited to and based on the above HPI, review of systems and physical exam: Urinary tract infection. Appendicitis. Cholecystitis. Colitis. small bowel obstruction. crohn's flare. pancreatitis. gastritis. peptic ulcer. cyclic vomiting. Viral illness. Influenza. COVID. Orders placed to evaluate differential diagnosis based on the above differential, HPI and physical exam Lab Review: Laboratory results were reviewed and interpreted by myself the emergency room physician. Leukocytosis. No anemia. BUN and creatinine are elevated over his baseline at 41 and 1.2. I reviewed the patient's medical record. Reexamination: Patient remained stable. No increased work of breathing. No altered mental status. No focal motor deficits. Assessment and plan Hyponatremia Dehydration Vomiting ?2 L normal saline bolus in the emergency room. IV Zofran. CT scan ordered and pending at shift change. Patient care transitioned to Dr. Gaines. Lab Data 04/20/25 19:51 04/20/25 19:51 Radiology Impressions Abdomen/Pelvis CT 04/20/25 20:29 IMPRESSION: 1. Findings most suggestive of gastroenteritis no obstruction 2. Colonic diverticulosis 3. Findings compatible with renal cysts. 4. Post cholecystectomy status. 5. Underdistended thickened urinary bladder, see above. COMMENTS: Consistent with the [employer]'s Incidental Findings Committee white paper (J Am Diane Radiol 2018): Any incidental renal lesion less than 1 cm or classified as too small to characterize, or any incidental cystic renal lesion characterized as simple-appearing, is likely benign. No follow-up imaging is recommended for these lesions per consensus recommendations based on imaging criteria. Laboratory Results WBC 18.03 10^3/uL (3.29-11.43) H 04/20/25 19:51 RBC 4.80 10^6/uL (3.85-5.65) 04/20/25 19:51 Hgb 15.70 g/dL (11.27-16.99) 04/20/25 19:51 Hct 44.1 % (37-53) 04/20/25 19:51 MCV 91.9 fl (82-101) 04/20/25 19:51 MCH 32.7 pg (27-33) 04/20/25 19:51 MCHC 35.6 g/dL (30-55) 04/20/25 19:51 RDW 12.1 % (12.1-15.1) 04/20/25 19:51 Plt Count 360 10^3/cmm (157-399) 04/20/25 19:51 MPV 8.8 fL (7.4-10.4) 04/20/25 19:51 Neut % (Auto) 72.3 % 04/20/25 19:51 Lymph % (Auto) 18.7 % 04/20/25 19:51 Meigs % (Auto) 7.6 % 04/20/25 19:51 Eos % (Auto) 0.3 % 04/20/25 19:51 Baso % (Auto) 0.3 % 04/20/25 19:51 Neut # (Auto) 13.04 10^3/uL (1.8-7.7) H 04/20/25 19:51 Lymph # (Auto) 3.4 10^3/uL (0.8-4.8) 04/20/25 19:51 Meigs # (Auto) 1.4 10^3/uL (0.2-0.9) H 04/20/25 19:51 Eos # (Auto) 0.1 10^3/uL (0.0-0.8) 04/20/25 19:51 Baso # (Auto) 0.1 10^3/uL (0.0-0.1) 04/20/25 19:51 Nucleated RBC % (auto) 0 % 04/20/25 19:51 Nucleated RBCs # 0.0 /100WBC 04/20/25 19:51 Sodium 125 mmol/L (136-145) L 04/20/25 19:51 Potassium 5.1 mmol/L (3.5-5.1) 04/20/25 19:51 Chloride 92 mmol/L (98-107) L 04/20/25 19:51 Carbon Dioxide 16 mmol/L (22-29) L 04/20/25 19:51 Anion Gap 22.1 (5-19) H 04/20/25 19:51 BUN 41 mg/dL (6-20) H 04/20/25 19:51 Creatinine 1.2 mg/dL (0.7-1.2) 04/20/25 19:51 GFR Calculation 63.3 mL/min (90-130) L 04/20/25 19:51 Glucose 110 mg/dL (65-115) 04/20/25 19:51 Calculated Osmolality 271 mOsm/kg (285-295) L 04/20/25 19:51 Calcium 10.4 mg/dL (8.5-10.5) 04/20/25 19:51 Total Bilirubin 1.8 mg/dL (0.15-1.2) H 04/20/25 19:51 AST 55 U/L (0-40) H 04/20/25 19:51 ALT 22 U/L (0-41) 04/20/25 19:51 Alkaline Phosphatase 97 U/L (40-130) 04/20/25 19:51 Total Protein 8.9 g/dL (6.6-8.7) H 04/20/25 19:51 Albumin 5.2 g/dL (3.5-5.2) 04/20/25 19:51 Globulin 3.7 g/dL (1.3-4.6) 04/20/25 19:51 Lipase 47 U/L (13-60) 04/20/25 19:51 Discharge Plan Discharge Patient Disposition: Admitted As Inpatient Clinical Impression: Nausea & vomiting, Hyponatremia Condition: Stable Coding Level of Care Code ED Disbursement Clerk for [facility] Documented by User: Mercedes Gaines MD 04/20/25 21:42 HPI - Nausea/Vomiting/Diarrhea General: Chief complaint: Nausea/Vomiting/Diarrhea Stated complaint: n/v/d, weakness x3 days Time Seen by Provider: 04/20/25 16:27 Related Data Home Medications ?Medication ?Instructions ?Recorded ?Confirmed albuterol sulfate 90 mcg/actuation 2 puff inhalation Q4H PRN 08/24/24 04/14/25 aerosol inhaler (Ventolin HFA) Shortness Of Breath nicotine 21 mg/24 hr daily See Rx Instructions .Route .COMPLEX 08/24/24 04/14/25 transdermal patch atorvastatin 80 mg tablet 80 mg PO QAM 09/16/24 04/14/25 isosorbide mononitrate 30 mg 30 mg PO DAILY 02/03/25 04/14/25 tablet,extended release 24 hr Previous Rx's ?Medication ?Instructions ?Recorded fluticasone 100 mcg-salmeterol 50 1 inh inhalation BID #60 ea 02/05/24 mcg/dose blistr powdr for inhalation (Advair Diskus) nitroglycerin 0.4 mg sublingual 0.4 mg sublingual Q5M PRN chest 02/06/24 tablet pain 30 days #30 tabs ranolazine 500 mg tablet,extended See Rx Instructions .Route 02/06/25 release,12 hr .COMPLEX #180 tabs tamsulosin 0.4 mg capsule 0.4 mg PO QAM #90 caps 02/06/25 zonisamide 100 mg capsule 100 mg PO DAILY #120 caps 02/06/25 aspirin 81 mg tablet,delayed 81 mg PO QAM #90 tabs 03/13/25 release clonazepam 0.5 mg tablet (Klonopin) 0.5 mg PO BID #60 tabs 03/25/25 clonazepam 0.5 mg tablet (Klonopin) 0.5 mg PO DAILY #30 tabs 03/25/25 mirtazapine 15 mg tablet 15 mg PO .HS #30 tabs 03/25/25 quetiapine 50 mg tablet (Seroquel) 50 mg PO BEDTIME #30 tabs 03/25/25 clopidogrel 75 mg tablet 75 mg PO DAILY #90 tabs 04/01/25 pantoprazole 40 mg tablet,delayed 40 mg PO BID 30 days #60 tabs 04/07/25 release potassium chloride 20 mEq 20 meq PO DAILY #90 tabs 04/07/25 tablet,extended release (K-Tab) hydrocodone 5 mg-acetaminophen 325 1 tab PO BID PRN pain 7 days #14 04/14/25 mg tablet tabs Allergies Allergy/AdvReac Type Severity Reaction Status Date / Time meperidine (From Demerol) Allergy Severe ALGY-Hives Verified 04/14/25 07:34 Alpha-Gal Allergy upset GI Verified 04/14/25 07:34 (Mfecsdjlh-Jfygp-4,3-Gala (Xelkczjep-Crupz-7,3-Galactose (Alph) gabapentin AdvReac Severe ADR-Seizure Verified 04/14/25 07:34 morphine AdvReac Severe ALGY-Hives Verified 04/14/25 07:34 tramadol AdvReac Severe ADR-Seizure Verified 04/14/25 07:34 PFSH ED PFSH: Medical History (Updated 04/20/25 @ 20:30 by Alivia Alfaro MD) Psychiatric care History of cardiovascular stress test 02/2024 Jejunitis hx in 07/2024 Chronic pancreatitis Panic attacks NSTEMI (non-ST elevated myocardial infarction) CAD (coronary artery disease) Cath 06/2024 30-40% stenosis in previously treated segment of RCA Colitis Direct inguinal hernia of right side COVID-19 (~04/2023) Moderate major depression Generalized anxiety disorder Alpha-gal syndrome Heart failure with mildly reduced ejection fraction (HFmrEF) Chronic abdominal pain Hyponatremia H. pylori duodenitis Elevated glucose Anxiety and depression Alpha galactosidase deficiency C. difficile colitis Medical marijuana use Diverticulosis seen in colonoscopy in 2023 GERD (gastroesophageal reflux disease) Urethral stricture COPD (chronic obstructive pulmonary disease) Essential (primary) hypertension Seizure disorder Mixed hyperlipidemia Osteoarthritis rt knee, cervical and Lumbar spine Surgical History History of cardiac catheterization 06/2024 - multiple prior PCIs, LM no sig stenosis, LAD minimal in-stent narrowing mid segment, LCx no severe lesions, Patent stented RCA with 30-40% jaqueline-stent stenosis. Recs: Medical therapy Status post lumbar spinal fusion L5/S1 & L4/L5 fusion, Dr Da Silva History of esophagogastroduodenoscopy (EGD) 2021. Showing esophagitis, gastritis, and duodenitis with + H.pylori biopsies History of back surgery Status post right knee replacement Hx of reconstruction of anterior cruciate ligament tear H/O neck surgery H/O left knee surgery History of appendectomy History of cholecystectomy H/O right knee surgery arthroscopic R lateral meniscetomy, chrondroplasty H/O chest tube placement H/O removal of testicle Stented coronary artery Family History Brother Parkinson disease Cancer Diabetes Stroke Bone cancer Family/Other Cancer Chronic kidney disease (CKD) Suicide Esophageal cancer Lung cancer Grandmother CAD (coronary artery disease) Cancer Lung disease Grandfather Dementia Mother Lung disease Father Suicide Other Colitis Denies family history of Clotting disorder Anesthesia complication Bleeding disorder Social History Smoking and tobacco/nicotine status: current every day tobacco/nicotine user cigarettes [ Other cigarette details: 1cig, 40PY] Quit status (tobacco/nicotine): has tried quititng Alcohol intake: never Substance/Drug Use: current Substance/Drug use frequency: daily Other substance/drug use details: medical card Lives independently: Yes Household members: significant other service: No Current occupational status: disabled Current occupational exposures/hazards: Yes Do you think of yourself as: Straight/Heterosexual Current gender identity: Male Course Vital Signs: Vital signs: Vital Signs Temperature 98.0 F 04/20/25 16:45 Pulse Rate 72 04/20/25 16:45 Respiratory Rate 18 04/20/25 16:45 Blood Pressure 137/81 04/20/25 20:31 Pulse Oximetry 97 04/20/25 20:31 Oxygen Delivery Me thod Room Air 04/20/25 20:07 MDM - Nausea/Vomiting/Diarrhea Medical Decision Making Medical decision making: Differential diagnosis for this patient with nausea and vomiting including but not limited to and based on the above HPI, review of systems and physical exam: Urinary tract infection. Appendicitis. Cholecystitis. Colitis. small bowel obstruction. crohn's flare. pancreatitis. gastritis. peptic ulcer. cyclic vomiting. Viral illness. Influenza. COVID. Orders placed to evaluate differential diagnosis based on the above differential, HPI and physical exam Lab Review: Laboratory results were reviewed and interpreted by myself the emergency room physician. Leukocytosis. No anemia. BUN and creatinine are elevated over his baseline at 41 and 1.2. I reviewed the patient's medical record. Reexamination: Patient remained stable. No increased work of breathing. No altered mental status. No focal motor deficits. Assessment and plan Hyponatremia Dehydration Vomiting ?2 L normal saline bolus in the emergency room. IV Zofran. CT scan ordered and pending at shift change. Patient care transitioned to Dr. Gaines Patient CT showed gastroenteritis. I did speak to hospitalist Dr. Roland informed her of CT findings hyponatremia she will admit. Lab Data 04/20/25 19:51 04/20/25 19:51 Radiology Impressions Abdomen/Pelvis CT 04/20/25 20:29 IMPRESSION: 1. Findings most suggestive of gastroenteritis no obstruction 2. Colonic diverticulosis 3. Findings compatible with renal cysts. 4. Post cholecystectomy status. 5. Underdistended thickened urinary bladder, see above. COMMENTS: Consistent with the [employer]'s Incidental Findings Committee white paper (J Am Diane Radiol 2018): Any incidental renal lesion less than 1 cm or classified as too small to characterize, or any incidental cystic renal lesion characterized as simple-appearing, is likely benign. No follow-up imaging is recommended for these lesions per consensus recommendations based on imaging criteria. Laboratory Results WBC 18.03 10^3/uL (3.29-11.43) H 04/20/25 19:51 RBC 4.80 10^6/uL (3.85-5.65) 04/20/25 19:51 Hgb 15.70 g/dL (11.27-16.99) 04/20/25 19:51 Hct 44.1 % (37-53) 04/20/25 19:51 MCV 91.9 fl (82-101) 04/20/25 19:51 MCH 32.7 pg (27-33) 04/20/25 19:51 MCHC 35.6 g/dL (30-55) 04/20/25 19:51 RDW 12.1 % (12.1-15.1) 04/20/25 19:51 Plt Count 360 10^3/cmm (157-399) 04/20/25 19:51 MPV 8.8 fL (7.4-10.4) 04/20/25 19:51 Neut % (Auto) 72.3 % 04/20/25 19:51 Lymph % (Auto) 18.7 % 04/20/25 19:51 Meigs % (Auto) 7.6 % 04/20/25 19:51 Eos % (Auto) 0.3 % 04/20/25 19:51 Baso % (Auto) 0.3 % 04/20/25 19:51 Neut # (Auto) 13.04 10^3/uL (1.8-7.7) H 04/20/25 19:51 Lymph # (Auto) 3.4 10^3/uL (0.8-4.8) 04/20/25 19:51 Meigs # (Auto) 1.4 10^3/uL (0.2-0.9) H 04/20/25 19:51 Eos # (Auto) 0.1 10^3/uL (0.0-0.8) 04/20/25 19:51 Baso # (Auto) 0.1 10^3/uL (0.0-0.1) 04/20/25 19:51 Nucleated RBC % (auto) 0 % 04/20/25 19:51 Nucleated RBCs # 0.0 /100WBC 04/20/25 19:51 Sodium 125 mmol/L (136-145) L 04/20/25 19:51 Potassium 5.1 mmol/L (3.5-5.1) 04/20/25 19:51 Chloride 92 mmol/L (98-107) L 04/20/25 19:51 Carbon Dioxide 16 mmol/L (22-29) L 04/20/25 19:51 Anion Gap 22.1 (5-19) H 04/20/25 19:51 BUN 41 mg/dL (6-20) H 04/20/25 19:51 Creatinine 1.2 mg/dL (0.7-1.2) 04/20/25 19:51 GFR Calculation 63.3 mL/min (90-130) L 04/20/25 19:51 Glucose 110 mg/dL (65-115) 04/20/25 19:51 Calculated Osmolality 271 mOsm/kg (285-295) L 04/20/25 19:51 Calcium 10.4 mg/dL (8.5-10.5) 04/20/25 19:51 Total Bilirubin 1.8 mg/dL (0.15-1.2) H 04/20/25 19:51 AST 55 U/L (0-40) H 04/20/25 19:51 ALT 22 U/L (0-41) 04/20/25 19:51 Alkaline Phosphatase 97 U/L (40-130) 04/20/25 19:51 Total Protein 8.9 g/dL (6.6-8.7) H 04/20/25 19:51 Albumin 5.2 g/dL (3.5-5.2) 04/20/25 19:51 Globulin 3.7 g/dL (1.3-4.6) 04/20/25 19:51 Lipase 47 U/L (13-60) 04/20/25 19:51 All radiology interpretation(s) finalized by discharge Discharge Plan Discharge Patient Disposition: Admitted As Inpatient Clinical Impression: Nausea & vomiting, Hyponatremia Condition: Stable Coding Level of Care Code ED Disbursement Clerk for [facility] [place]
[2025-04-20] MEDS: ondansetron 2 mg/ML SDV 2 mL 4 MG IVP (19:07)
[2025-04-20 20:03] LABS: Hematocrit 44.1 % (37-53); Hemoglobin 15.70 g/dL (11.27-16.99); Mean Corpuscular HGB Conc 35.6 g/dL (30-55); Mean Corpuscular Hemoglobin 32.7 pg (27-33); Mean Corpuscular Volume 91.9 fl (82-101); Nucleated Red Blood Cells % 0 %; Platelet Count 360 10^3/cmm (157-399); Red Blood Count 4.80 10^6/uL (3.85-5.65); White Blood Count 18.03 10^3/uL (3.29-11.43)
[2025-04-20 20:13] LABS: Alanine Aminotransferase 22 U/L (0-41); Albumin Level 5.2 g/dL (3.5-5.2); Alkaline Phosphatase 97 U/L (40-130); Anion Gap 22.1 (5-19); Aspartate Amino Transferase 55 U/L (0-40); Blood Urea Nitrogen 41 mg/dL (6-20); Calcium 10.4 mg/dL (8.5-10.5); Carbon Dioxide 16 mmol/L (22-29); Chloride 92 mmol/L (98-107); Creatinine Clr Calc Pharmacy 64.9983; Globulin 3.7 g/dL (1.3-4.6); Glucose 110 mg/dL (65-115); Lipase 47 U/L (13-60); Osmolality Calculated 271 mOsm/kg (285-295); Potassium 5.1 mmol/L (3.5-5.1); Sodium 125 mmol/L (136-145); Total Protein 8.9 g/dL (6.6-8.7)
--- NOTE | 2025-04-20 20:29 | CTR_ITS ---
PROCEDURE INFORMATION: Exam: CT Abdomen And Pelvis With Contrast Exam date and time: 04/20/2025 8:53 PM Age: 54 years old Clinical indication: Abdominal pain; Generalized; Prior surgery; Surgery date: 6+ months; Surgery type: Lspine; Additional info: Abd cramping, vomiting TECHNIQUE: Imaging protocol: Computed tomography of the abdomen and pelvis with contrast. Radiation optimization: All CT scans at this facility use at least one of these dose optimization techniques: automated exposure control; mA and/or kV adjustment per patient size (includes targeted exams where dose is matched to clinical indication); or iterative reconstruction. Contrast material: OMNIPAQUE 350; Contrast volume: 100 ml; Contrast route: INTRAVENOUS (IV); COMPARISON: CT abdomen pelvis wo con [id number] 01/16/2025 8:20 PM RADIATION DOSE METRICS: Total DLP (mGy-cm): 466.83 FINDINGS: Lungs: Calcified granuloma present left lower lobe. Liver: Diffuse fatty infiltration of the liver present. Gallbladder surgically removed. Gallbladder and biliary ducts: See Liver finding. Pancreas: Unremarkable. No ductal dilation. Spleen: Unremarkable. No splenomegaly. Adrenal glands: Normal. No mass. Kidneys and ureters: There are findings of hypodensities within the kidneys. The largest hypodensity right midpole 3.3 cm compatible with renal cysts. Stomach and bowel: Colonic diverticulosis present without obstruction. There are air-fluid levels within large and small bowel loops that are nondistended gastroenteritis could be consideration. Appendix: The appendix was not visualized, no inflammatory changes present right lower quadrant. Intraperitoneal space: There is no intra-abdominal or pelvic free air or free fluid present. Vasculature: Unremarkable. No abdominal aortic aneurysm. Lymph nodes: Unremarkable. No enlarged lymph nodes. Urinary bladder: Urinary bladder is not well distended and appears thickened, nonspecific finding. Correlate with urinalysis, infection not excluded Reproductive: Unremarkable as visualized. Bones/joints: Patient is status post laminectomy fusion L4-L5 and L5-S1. Soft tissues: Unremarkable. CT/CT abdomen pelvis w con* [id number] IMPRESSION: 1. Findings most suggestive of gastroenteritis no obstruction 2. Colonic diverticulosis 3. Findings compatible with renal cysts. 4. Post cholecystectomy status. 5. Underdistended thickened urinary bladder, see above. COMMENTS: Consistent with the [employer]'s Incidental Findings Committee white paper (J Am Diane Radiol 2018): Any incidental renal lesion less than 1 cm or classified as too small to characterize, or any incidental cystic renal lesion characterized as simple-appearing, is likely benign. No follow-up imaging is recommended for these lesions per consensus recommendations based on imaging criteria.
--- NOTE | 2025-04-20 23:10 | PM.HP ---
Providers/Chief Complaint Admitting Physician: Leda Jean MD--- admitted before 12 midnight Primary Care Provider: Jarrell Espino MD Chief Complaint: n/v/d, weakness x3 days History of Present Illness [place] Jack Cheng is a 54 year old male with medical history significant for cannabis use disorder who had now presented with nausea vomiting and weakness x 3 days with resultant hyponatremia at 125 leukocytosis with left shift at 18,000. CT of the abdomen pelvis significant for gastroenteritis patient is with LFT elevation significant for a total bili of 1.8 AST of 55. Patient is dehydrated and is being admitted to [facility] for optimization of care. Patient used to drink excessively about 30 packs of alcoholic drink daily but stopped drinking over 12 years ago. Hepatitis panel ordered and pending IV hydration ongoing gently. No antibiotics is needed at this time as this is secondary most likely due to inflammatory process precipitated by nausea and vomiting and cannot rule out hyperemesis secondary to cannabis abuse. Follow-up with lab studies for interval change for improvement. Will continue symptomatic supportive care. Patient verbalized that he takes cannabis because of anxiety. Patient is being weaned off of Ativan for he had been on this for over 12 years. But at this time of weaning off patient is actively smoking cannabis on a daily basis and will have hyperemesis secondary to cannabis abuse. Case discussed with the patient I will initiate patient on buspirone which is not an addicting antianxiety why patient is being weaned off all 4 of Ativan. Follow up lab studies for liver function test, serum sodium and reactive leukocytosis. Notes patient is a [facility] patient on overflow in ICU Review of Systems Narrative: System review upon 10 organ review were significant for gastroenteritis secondary to cannabis use disorder Medications/Allergies Home Medications ?Medication ?Instructions ?Recorded ?Confirmed ?Last Taken ?Type fluticasone 100 mcg-salmeterol 50 1 inh inhalation BID #60 ea 02/05/24 04/14/25 02/02/25 Rx mcg/dose blistr powdr for inhalation (Advair Diskus) nitroglycerin 0.4 mg sublingual 0.4 mg sublingual Q5M PRN chest 02/06/24 04/14/25 Unknown Rx tablet pain 30 days #30 tabs albuterol sulfate 90 mcg/actuation 2 puff inhalation Q4H PRN 0104/14/25 02/02/25 History aerosol inhaler (Ventolin HFA) Shortness Of Breath nicotine 21 mg/24 hr daily See Rx Instructions .Route .COMPLEX 08/24/24 04/14/25 02/02/25 History transdermal patch atorvastatin 80 mg tablet 80 mg PO QAM 09/16/24 04/14/25 02/03/25 History isosorbide mononitrate 30 mg 30 mg PO DAILY 02/03/25 04/14/25 02/02/25 History tablet,extended release 24 hr ranolazine 500 mg tablet,extended See Rx Instructions .Route 02/06/25 04/14/25 Unknown Rx release,12 hr .COMPLEX #180 tabs tamsulosin 0.4 mg capsule 0.4 mg PO QAM #90 caps 02/06/25 04/14/25 Unknown Rx zonisamide 100 mg capsule 100 mg PO DAILY #120 caps 02/06/25 04/14/25 Unknown Rx aspirin 81 mg tablet,delayed 81 mg PO QAM #90 tabs 03/13/25 04/14/25 Unknown Rx release clonazepam 0.5 mg tablet (Klonopin) 0.5 mg PO BID #60 tabs 03/25/25 04/14/25 Unknown Rx clonazepam 0.5 mg tablet (Klonopin) 0.5 mg PO DAILY #30 tabs 03/25/25 04/14/25 Unknown Rx mirtazapine 15 mg tablet 15 mg PO .HS #30 tabs 03/25/25 04/14/25 Unknown Rx quetiapine 50 mg tablet (Seroquel) 50 mg PO BEDTIME #30 tabs 03/25/25 04/14/25 Unknown Rx clopidogrel 75 mg tablet 75 mg PO DAILY #90 tabs 04/01/25 04/14/25 Unknown Rx pantoprazole 40 mg tablet,delayed 40 mg PO BID 30 days #60 tabs 04/07/25 04/14/25 Unknown Rx release potassium chloride 20 mEq 20 meq PO DAILY #90 tabs 04/07/25 04/14/25 Unknown Rx tablet,extended release (K-Tab) hydrocodone 5 mg-acetaminophen 325 1 tab PO BID PRN pain 7 days #14 04/14/25 04/14/25 Unknown Rx mg tablet tabs Allergies Allergy/AdvReac Type Severity Reaction Status Date / Time [facility] Allergy Severe ALGY-Hives Verified 04/14/25 07:34 Alpha-Gal Allergy upset GI Verified 04/14/25 07:34 (Lsgjhpety-Fbdui-1,3-Gala (Hqjlqakal-Wmbtk-2,3-Galactose (Alph) gabapentin AdvReac Severe ADR-Seizure Verified 04/14/25 07:34 morphine AdvReac Severe ALGY-Hives Verified 04/14/25 07:34 tramadol AdvReac Severe ADR-Seizure Verified 04/14/25 07:34 PFSH Acute PFSH: Medical History Psychiatric care History of cardiovascular stress test 02/2024 Jejunitis hx in 07/2024 Chronic pancreatitis Panic attacks NSTEMI (non-ST elevated myocardial infarction) CAD (coronary artery disease) Cath 06/2024 30-40% stenosis in previously treated segment of RCA Colitis Direct inguinal hernia of right side COVID-19 (~04/2023) Moderate major depression Generalized anxiety disorder Alpha-gal syndrome Heart failure with mildly reduced ejection fraction (HFmrEF) Chronic abdominal pain Hyponatremia H. pylori duodenitis Elevated glucose Anxiety and depression Alpha galactosidase deficiency C. difficile colitis Medical marijuana use Diverticulosis seen in colonoscopy in 2023 GERD (gastroesophageal reflux disease) Urethral stricture COPD (chronic obstructive pulmonary disease) Essential (primary) hypertension Seizure disorder Mixed hyperlipidemia Osteoarthritis rt knee, cervical and Lumbar spine Surgical History History of cardiac catheterization 06/2024 - multiple prior PCIs, LM no sig stenosis, LAD minimal in-stent narrowing mid segment, LCx no severe lesions, Patent stented RCA with 30-40% jaqueline-stent stenosis. Recs: Medical therapy Status post lumbar spinal fusion L5/S1 & L4/L5 fusion, Dr Da Silva History of esophagogastroduodenoscopy (EGD) 2021. Showing esophagitis, gastritis, and duodenitis with + H.pylori biopsies History of back surgery Status post right knee replacement Hx of reconstruction of anterior cruciate ligament tear H/O neck surgery H/O left knee surgery History of appendectomy History of cholecystectomy H/O right knee surgery arthroscopic R lateral meniscetomy, chrondroplasty H/O chest tube placement H/O removal of testicle Stented coronary artery Family History Brother Parkinson disease Cancer Diabetes Stroke Bone cancer Family/Other Cancer Chronic kidney disease (CKD) Suicide Esophageal cancer Lung cancer Grandmother CAD (coronary artery disease) Cancer Lung disease Grandfather Dementia Mother Lung disease Father Suicide Other Colitis Denies family history of Clotting disorder Anesthesia complication Bleeding disorder Social History Smoking and tobacco/nicotine status: current every day tobacco/nicotine user cigarettes [ Other cigarette details: 1cig, 40PY] Quit status (tobacco/nicotine): has tried quititng Alcohol intake: never Substance/Drug Use: current Substance/Drug use frequency: daily Other substance/drug use details: medical card Lives independently: Yes Household members: significant other service: No Current occupational status: disabled Current occupational exposures/hazards: Yes Do you think of yourself as: Straight/Heterosexual Current gender identity: Male Vitals/I&O/Wt Last Vital Signs Temp 98.0 F 04/20/25 16:45 Pulse 60 04/20/25 22:40 Resp 17 04/20/25 22:40 BP 142/75 04/20/25 22:40 Pulse Ox 97 04/20/25 22:40 O2 Del Method Room Air 04/20/25 22:36 04/20/25 04/20/25 04/21/25 14:59 22:59 06:59 Intake Total 1999 Balance 1999 Weight last 48 hrs Weight 72.575 kg Physical Exam Narrative: Generally patient is very pleasant and is found to be in no apparent distress. Patient nausea and vomiting had responded to antiemetics and relaxant at the time trying to fall asleep. Patient is a MedSurg overflow to ICU. HEENT normocephalic/atraumatic neck neck is supple cardiovascular heart rate is regular lungs are pretty much clear abdomen soft nontender nondistended unremarkable extremities are intact no edema has good pulses neurology has no focality lab studies lab studies reviewed and noted. Data 04/20/25 19:51 04/20/25 19:51 A&P Assessment and plan 1. Hyponatremia: 2. Nausea & vomitin. Cannabis use disorder, severe, dependence: 4. Major depressive disorder, recurrent severe without psychotic features: 5. Anxiety disorder: 6. Dehydration: 7. Elevated WBC count: Plan: Patient with severe cannabis dependence and abuse partly secondary to severe anxiety disorder leading to current problems: #1Severe nausea and vomiting secondary to hyperemesis secondary to cannabis abuse - Supportive care with antiemetic - Admit to general medical floor with telemetry for electrolyte imbalances - Follow series electrolyte and optimize accordingly - Clear liquid diet as tolerated and then advance as tolerated #2 Hyponatremia secondary to #1 - Patient is with severe dehydration leading to hyponatremia of 125 - Gentle hydration at this time - Follow series serum sodium, if desired normalization expected. #3 Metabolic acidosis - This is secondary to nausea and vomiting - Gentle hydration #4 Dehydration - Follow-up with gentle hydration at this time #5 Leukocytosis - This is reactive - This is induced by systemic inflammation from ongoing cannabis use and abuse triggering nausea and vomiting with elevated liver enzymes and leukocytosis - Monitor and optimize accordingly with gentle hydration supportive care with pain management #6 Anxiety disorder - I am initiating patient on BuSpar while he follows a gradual outpatient tapering off of Ativan. #7 GI and DVT prophylaxis in place PDMP PDMP Reviewed: Not Reviewed Attestations Medical Necessity Statement*: Patient with multiple significant electrolyte imbalance reference to hyponatremia and intractable nausea and vomiting deserves 2 midnight stay for further optimization of care. Patient meets inpatient criteria Coding Level of Care Code 25796 Diagnoses Hyponatremia E87.1 Nausea & vomiting R11.2 Cannabis use disorder, severe, dependence F12.20 Major depressive disorder, recurrent severe without psychotic features F33.2 Anxiety disorder F41.9 Dehydration E86.0 Elevated WBC count D72.829 Time Spent (min) 60
[2025-04-21] VITALS (36 sets, daily range): BP systolic 108–170; BP diastolic 56–110; PULSE 52–99; RESP 7–25; TEMP 36.8–37.1; O2SAT 93–100
[2025-04-21] MEDS: HYDROcodone-acetaminophen 5-325 mg Tablet 1 TAB PO ×2 (00:01→12:01)
[2025-04-21 00:17] LABS: Hepatitis A Antibody IgM Non-Reactive (Nonreactive); Hepatitis B Surface Antigen Non-Reactive (Nonreactive)
[2025-04-21 03:48] LABS: Hematocrit 40.0 % (37-53); Hemoglobin 13.70 g/dL (11.27-16.99); Mean Corpuscular HGB Conc 34.3 g/dL (30-55); Mean Corpuscular Hemoglobin 32.9 pg (27-33); Mean Corpuscular Volume 95.9 fl (82-101); Nucleated Red Blood Cells % 0 %; Platelet Count 296 10^3/cmm (157-399); Red Blood Count 4.17 10^6/uL (3.85-5.65); White Blood Count 13.36 10^3/uL (3.29-11.43)
[2025-04-21 04:10] LABS: Glucose Urine UA Negative (Normal); Nitrate Urine Negative (Negative); Specific Gravity, Urine 1.025 (1.005-1.030)
[2025-04-21 04:15] LABS: Add Urine Microscopic? YES
[2025-04-21 04:16] LABS: Alanine Aminotransferase 17 U/L (0-41); Albumin Level 4.3 g/dL (3.5-5.2); Alkaline Phosphatase 80 U/L (40-130); Anion Gap 19.6 (5-19); Aspartate Amino Transferase 40 U/L (0-40); Blood Urea Nitrogen 29 mg/dL (6-20); Calcium 9.2 mg/dL (8.5-10.5); Carbon Dioxide 15 mmol/L (22-29); Chloride 101 mmol/L (98-107); Creatinine Clr Calc Pharmacy 86.6644; Globulin 2.7 g/dL (1.3-4.6); Glucose 105 mg/dL (65-115); Magnesium 1.6 mg/dL (1.7-2.3); Osmolality Calculated 278 mOsm/kg (285-295); Potassium 4.6 mmol/L (3.5-5.1); Sodium 131 mmol/L (136-145); Total Protein 7.0 g/dL (6.6-8.7)
[2025-04-21] MEDS: ondansetron 2 mg/ML SDV 2 mL 4 MG IVP ×2 (08:10→18:51)
[2025-04-21] MEDS: magnesium sulfate premix 2 GM/50 ML PIGGYBACK IV (08:42)
--- NOTE | 2025-04-21 13:52 | P.PN_ITS ---
Subjective 2 Subjective: ongoing nausea/vomiting. Vitals/I&O/Wt Last Vital Signs Temp 98.8 F 04/21/25 06:12 Pulse 62 04/21/25 12:04 Resp 12 04/21/25 12:04 BP 139/84 04/21/25 12:04 Pulse Ox 99 04/21/25 12:04 O2 Del Method Room Air 04/20/25 23:13 04/20/25 04/21/25 04/21/25 22:59 06:59 14:59 Intake Total 2480 / 2480 863.333 / 863.333 Output Total 300 / 300 600 / 600 Balance 2180 / 2180 263.333 / 263.333 Weight last 48 hrs Weight 72.983 kg Weight 72.575 kg Physical Exam 2 Const: COMMON NORMALS: no acute distress, average body habitus and patient oriented x3 HENMT: COMMON NORMALS: normocephalic and atraumatic HEAD & SCALP: n ormocephalic and atraumatic Eye: COMMON NORMALS: Equal, round and reactive pupils present and EOMs intact bilaterally PUPIL: Yes Equal, round and reactive pupils present Neck/C-Spine: COMMON NORMALS: full ROM, no lymphadenopathy and supple Lymph: LYMPHATIC: no lymphadenopathy noted Resp: COMMON NORMALS: normal respiratory effort, No retractions and clear to auscultation bilaterally AUSCULTATION: clear to auscultation bilaterally Cardio: COMMON NORMALS: regular rate, regular rhythm, S1 normal heart sound present and S2 normal heart sound present RATE: regular rate RHYTHM: r egular rhythm HEART SOUNDS: S1 normal heart sound present and S2 normal heart sound present GI: COMMON NORMALS: Soft to palpation, non-tender and no masses PALPATION: Yes Soft to palpation Extremity: COMMON NORMALS: normal to inspection and full ROM Neuro: COMMON NORMALS: patient oriented x3 and CN's II-XII intact bilaterally Psych: COMMON NORMALS: mental status grossly normal, Normal thought process present, cooperative and normal affect THOUGHT PROCESS: Normal thought process present Data 04/21/25 03:10 04/21/25 03:10 A&P Assessment and plan 1. Nausea & vomitin. Anxiety disorder: 3. Hyponatremia: Plan: 54 year old male presenting with severe cannabis dependence and abuse partly secondary to severe anxiety disorder leading to current problems: #1 Hyperemesis secondary to cannabis abuse Gastroenteritis on CT. - Supportive care with antiemetic - Admit to general medical floor with telemetry for electrolyte imbalances - Follow series electrolyte and optimize accordingly - Clear liquid diet as tolerated and then advance as tolerated #2 Hyponatremia secondary to #1 - Patient is with severe dehydration leading to hyponatremia of 125 - Gentle hydration at this time - correcting appropriately #3 Metabolic acidosis - This is secondary to nausea and vomiting - Gentle hydration #4 Dehydration - Follow-up with gentle hydration at this time #5 Leukocytosis - This is reactive - This is induced by systemic inflammation from ongoing cannabis use and abuse triggering nausea and vomiting with elevated liver enzymes and leukocytosis - Monitor and optimize accordingly with gentle hydration supportive care with pain management #6 Anxiety disorder - initing patient on BuSpar while he follows a gradual outpatient tapering off of Ativan. #7 GI and DVT prophylaxis in place Hypomagnesemia - given 2g, recheck in AM. Chronic back pain - cont. home norco PPx: lovenox Diet: advance as tolerated Disposition - pending improvement in symptoms. PDMP PDMP Reviewed: Not Reviewed Attestations 2 Medical Necessity Statement*: ongoing inpatient for GE, hyperemesis 2/2 [facility] Time Spent in Patient Care: 16 - 35 minutes (>than 50% of time sp ent in counselling and/or direct pt care on unit) . Coding Level of Care Code Acute Code for Chg Fwd Diagnoses Nausea & vomiting R11.2 Anxiety disorder F41.9 Hyponatremia E87.1
[2025-04-21] MEDS: ranolazine (12HR) 500 mg Tablet PO (17:32)
[2025-04-22] VITALS: BP 155/92; PULSE 73; RESP 7; O2SAT 97
[2025-04-22 00:30] VITALS: BP 149/93; PULSE 72; RESP 11; O2SAT 100
--- NOTE | 2025-04-22 00:48 | PC.NURSE ---
Report called to Carly on medsur. Patient being transferred to [facility].
[2025-04-22 04:00] VITALS: BP 109/70; PULSE 70; RESP 16; TEMP 36.8; O2SAT 98
[2025-04-22 04:34] LABS: Hematocrit 37.3 % (37-53); Hemoglobin 12.70 g/dL (11.27-16.99); Mean Corpuscular HGB Conc 34.0 g/dL (30-55); Mean Corpuscular Hemoglobin 32.5 pg (27-33); Mean Corpuscular Volume 95.4 fl (82-101); Nucleated Red Blood Cells % 0 %; Platelet Count 227 10^3/cmm (157-399); Red Blood Count 3.91 10^6/uL (3.85-5.65); White Blood Count 9.44 10^3/uL (3.29-11.43)
[2025-04-22 04:55] LABS: Anion Gap 17.3 (5-19); Blood Urea Nitrogen 13 mg/dL (6-20); Calcium 8.7 mg/dL (8.5-10.5); Carbon Dioxide 18 mmol/L (22-29); Chloride 104 mmol/L (98-107); Creatinine Clr Calc Pharmacy 97.7439; Glucose 103 mg/dL (65-115); Magnesium 2.0 mg/dL (1.7-2.3); Osmolality Calculated 280 mOsm/kg (285-295); Potassium 4.3 mmol/L (3.5-5.1); Sodium 135 mmol/L (136-145)
[2025-04-22 07:47] VITALS: BP 119/75; PULSE 73; RESP 16; TEMP 36.8; O2SAT 99
[2025-04-22] MEDS: HYDROcodone-acetaminophen 5-325 mg Tablet 1 TAB PO (08:11)
[2025-04-22] MEDS: ranolazine (12HR) 500 mg Tablet PO (08:11)
[2025-04-22 08:17] VITALS: PULSE 78; RESP 16; O2SAT 98
--- NOTE | 2025-04-22 10:08 | P.DS_ITS ---
Discharge Providers Date of Admission: 04/20/25 21:25 Date of Discharge: April 22, 2025 Attending Provider at Admission: Leda Jean MD Attending Provider at Discharge: Easton Anaya MD Primary Care Provider: Jarrell Espino MD Diagnoses at Discharge Discharge Diagnosis 1. Nausea & vomitin. Anxiety disorder: 3. Hyponatremia: Reason for Visit Reason for Visit: n/v/d, weakness x3 days Hospital Course Hospital Course 54 year old male presenting with severe cannabis dependence and abuse partly secondary to severe anxiety disorder leading to current problems: #1 Hyperemesis secondary to cannabis abuse Gastroenteritis on CT. - Supportive care with antiemetic - Admit to general medical floor with telemetry for electrolyte imbalances - Follow series electrolyte and optimize accordingly - Clear liquid diet as tolerated and then advance as tolerated #2 Hyponatremia secondary to #1 - severe dehydration leading to hyponatremia of 125 - Gentle hydration at this time - correcting appropriately #3 Metabolic acidosis - This is secondary to nausea and vomiting - Gentle hydration #4 Dehydration - Follow-up with gentle hydration at this time #5 Leukocytosis - This is reactive - This is induced by systemic inflammation from ongoing cannabis use and abuse triggering nausea and vomiting with elevated liver enzymes and leukocytosis - Monitor and optimize accordingly with gentle hydration supportive care with pain management - no leukocytosis this AM. #6 Anxiety disorder - initiating patient on BuSpar while he follows a gradual outpatient tapering off of Ativan. #7 GI and DVT prophylaxis in place Hypomagnesemia - given 2g, recheck in AM. Chronic back pain - cont. home norco PPx: lovenox Diet: advance as tolerated Disposition - Discharge planning for today if symptoms improved. The patient left AMA in the AM prior to being seen. Physical Exam Narrative: Unable to perform physical exam, patient left AMA in the AM prior to being seen by physician. Discharge Data Studies Completed and Pending Completed Studies During Hospitalization Category Date Time Status CT abdomen pelvis w con* [id number] Stat Cat Scan 04/20/25 20:29 Completed Radiology Impressions Abdomen/Pelvis CT 04/20/25 20:29 IMPRESSION: 1. Findings most suggestive of gastroenteritis no obstruction 2. Colonic diverticulosis 3. Findings compatible with renal cysts. 4. Post cholecystectomy status. 5. Underdistended thickened urinary bladder, see above. COMMENTS: Consistent with the [employer]'s Incidental Findings Committee white paper (J Am Diane Radiol 2018): Any incidental renal lesion less than 1 cm or classified as too small to characterize, or any incidental cystic renal lesion characterized as simple-appearing, is likely benign. No follow-up imaging is recommended for these lesions per consensus recommendations based on imaging criteria. Laboratory Results WBC 9.44 10^3/uL (3.29-11.43) 04/22/25 04:23 RBC 3.91 10^6/uL (3.85-5.65) 04/22/25 04:23 Hgb 12.70 g/dL (11.27-16.99) 04/22/25 04:23 Hct 37.3 % (37-53) 04/22/25 04:23 MCV 95.4 fl (82-101) 04/22/25 04:23 MCH 32.5 pg (27-33) 04/22/25 04:23 MCHC 34.0 g/dL (30-55) 04/22/25 04:23 RDW 12.2 % (12.1-15.1) 04/22/25 04:23 Plt Count 227 10^3/cmm (157-399) 04/22/25 04:23 MPV 8.8 fL (7.4-10.4) 04/22/25 04:23 Neut % (Auto) 62.2 % 04/22/25 04:23 Lymph % (Auto) 27.4 % 04/22/25 04:23 [place] % (Auto) 8.8 % 04/22/25 04:23 Eos % (Auto) 0.6 % 04/22/25 04:23 Baso % (Auto) 0.4 % 04/22/25 04:23 Neut # (Auto) 5.86 10^3/uL (1.8-7.7) 04/22/25 04:23 Lymph # (Auto) 2.6 10^3/uL (0.8-4.8) 04/22/25 04:23 [place] # (Auto) 0.8 10^3/uL (0.2-0.9) 04/22/25 04:23 Eos # (Auto) 0.1 10^3/uL (0.0-0.8) 04/22/25 04:23 Baso # (Auto) 0.0 10^3/uL (0.0-0.1) 04/22/25 04:23 Nucleated RBC % (auto) 0 % 04/22/25 04:23 Nucleated RBCs # 0.0 /100WBC 04/22/25 04:23 Sodium 135 mmol/L (136-145) L 04/22/25 04:23 Potassium 4.3 mmol/L (3.5-5.1) 04/22/25 04:23 Chloride 104 mmol/L (98-107) 04/22/25 04:23 Carbon Dioxide 18 mmol/L (22-29) L 04/22/25 04:23 Anion Gap 17.3 (5-19) 04/22/25 04:23 BUN 13 mg/dL (6-20) 04/22/25 04:23 Creatinine 0.8 mg/dL (0.7-1.2) 04/22/25 04:23 GFR Calculation 101.1 mL/min (90-130) 04/22/25 04:23 Glucose 103 mg/dL (65-115) 04/22/25 04:23 Calculated Osmolality 280 mOsm/kg (285-295) L 04/22/25 04:23 Calcium 8.7 mg/dL (8.5-10.5) 04/22/25 04:23 Phosphorus 3.3 mg/dL (2.5-4.5) 04/22/25 04:23 Magnesium 2.0 mg/dL (1.7-2.3) 04/22/25 04:23 Total Bilirubin 1.3 mg/dL (0.15-1.2) H 04/21/25 03:10 AST 40 U/L (0-40) 04/21/25 03:10 ALT 17 U/L (0-41) 04/21/25 03:10 Alkaline Phosphatase 80 U/L (40-130) 04/21/25 03:10 Total Protein 7.0 g/dL (6.6-8.7) D 04/21/25 03:10 Albumin 4.3 g/dL (3.5-5.2) 04/21/25 03:10 Globulin 2.7 g/dL (1.3-4.6) 04/21/25 03:10 Lipase 47 U/L (13-60) 04/20/25 19:51 Urine Color Yellow (Yellow) 04/21/25 03:20 Urine Appearance Clear (CLEAR) 04/21/25 03:20 Urine pH 5.0 (5-7) 04/21/25 03:20 Ur Specific Mu[place] 1.025 (1.005-1.030) 04/21/25 03:20 Urine Protein Negative (Negative) 04/21/25 03:20 Urine Glucose (UA) Negative (Normal) 04/21/25 03:20 Urine Ketones Negative (Negative) 04/21/25 03:20 Urine Blood 1+ (Negative) A 04/21/25 03:20 Urine Nitrate Negative (Negative) 04/21/25 03:20 Urine Bilirubin Negative (Negative) 04/21/25 03:20 Urine Urobilinogen 0.2 mg/dL (Negative) 04/21/25 03:20 Ur Leukocyte Esterase Negative (Negative) 04/21/25 03:20 Urine RBC 0-2 /hpf (0-2) 04/21/25 03:20 Urine WBC 0-5 /hpf (0-5) 04/21/25 03:20 Ur Squamous Epith Cells 0-5 /hpf (0-5) 04/21/25 03:20 Amorphous Sediment Not Reportable 04/21/25 03:20 Urine Bacteria None seen /hpf (NONE) 04/21/25 03:20 Hyaline Casts 0.40 /lpf 04/21/25 03:20 Hepatitis A IgM Ab Non-reactive (Nonreactive) 04/20/25 19:51 Hep Bs Antigen Non-reactive (Nonreactive) 04/20/25 19:51 Hep Bs Antibody < 3.5 (11.5-1000) L 04/20/25 19:51 Hep B Core Total Ab Non-reactive (Nonreactive) 04/20/25 19:51 Hepatitis C Antibody Non-reactive (Nonreactive) 04/20/25 19:51 Vitals Last Vital Signs Temp 98.2 F 04/22/25 07:47 Pulse 78 04/22/25 08:17 Resp 16 04/22/25 08:17 BP 119/75 04/22/25 07:47 Pulse Ox 98 04/22/25 08:17 O2 Del Method Room Air 04/22/25 08:17 Discharge Plan Discharge Patient Disposition: Left Against Medical Advice Condition: Stable Prescriptions: No Action nitroglycerin 0.4 mg tablet, sublingual 0.4 mg sublingual Q5M PRN (Reason: chest pain) 30 Days Qty: 30 3RF Rx Instructions: until response; do not exceed 3 doses per episode hydrocodone-acetaminophen 5-325 mg tablet 1 tab PO BID PRN (Reason: pain) 7 Days Qty: 14 0RF fluticasone propion-salmeterol [Advair Diskus] 100-50 mcg/dose blister with device 1 inh INHALATION BID Qty: 60 0RF clonazepam [Klonopin] 0.5 mg tablet 0.5 mg PO BID Qty: 60 0RF quetiapine [Seroquel] 50 mg tablet 50 mg PO BEDTIME Qty: 30 2RF mirtazapine 15 mg tablet 15 mg PO .HS Qty: 30 2RF zonisamide 100 mg capsule 100 mg PO DAILY Qty: 120 0RF ranolazine 500 mg tablet extended release 12 hr See Rx Instructions .ROUTE .COMPLEX Qty: 180 3RF Dose Instruction: TAKE 1 TABLET BY MOUTH TWICE DAILY Rx Instructions: TAKE 1 TABLET BY MOUTH TWICE DAILY tamsulosin 0.4 mg capsule 0.4 mg PO QAM Qty: 90 0RF aspirin 81 mg tablet,delayed release (DR/EC) 81 mg PO QAM Qty: 90 1RF clopidogrel 75 mg tablet 75 mg PO DAILY Qty: 90 1RF pantoprazole 40 mg tablet,delayed release (DR/EC) 40 mg PO BID 30 Days Qty: 60 1RF nicotine 21 mg/24 hr patch 24 hour See Rx Instructions .ROUTE .COMPLEX Rx Instructions: Apply and change one patch daily for 6 weeks. buspirone 30 mg tablet 30 mg PO BID potassium chloride 20 mEq tablet extended release 20 meq PO DAILY atorvastatin 80 mg tablet 80 mg PO QAM isosorbide mononitrate 30 mg tablet extended release 24 hr 30 mg PO DAILY Rx Instructions: TAKE 1 TABLET BY MOUTH DAILY Referrals: [facility] [Other] Referral Note: 7 days/week 8am-6pm Walk-In [facility] [Outside] Referral Note: ? Follow up as a walk in at [facility], walk in hours are Sunday-Sunday from 7:30AM-3:00PM, first come, first seen. Once you do this assessment you will be referred for appropriate services. Jarrell Espino MD [Primary Care Provider, Family Practice] Patient Instructions: Opioid Safety, Patient Portal & Brisa Instructions Discharge Attestations Time Spent in Discharge Care*: greater than 30 min Status at Discharge: Cognitive status at discharge: cognitively intact , Behavioral status at discharge: cooperative , Quality Metrics Clinical Quality Measures [ No reported AMI, CVA or VTE this stay] Coding Level of Care Code Acute Code for Chg Fwd Diagnoses Nausea & vomiting R11.2 Anxiety disorder F41.9 Hyponatremia E87.1
== END 2025-04-22 08:26 | disposition left against medical advice (07) | DRG 641 ==
LOC: ER 20:28 → ICU 23:05 → MEDSURG 04-22 01:07
PROVIDERS: Physician Assistant; Admitting Provider Internal Medicine; Emergency Provider Emergency Medicine; PCP Family Medicine; Visit Provider Internal Medicine
DX: E87.1 Hypo-osmolality and hyponatremia (principal); F33.9 Major depressive disorder, recurrent, unspecified; K52.9 Noninfective gastroenteritis and colitis, unspecified; E87.20 Acidosis, unspecified; F41.1 Generalized anxiety disorder; F12.20 Cannabis dependence, uncomplicated; E86.0 Dehydration; E83.42 Hypomagnesemia; G89.29 Other chronic pain; M54.9 Dorsalgia, unspecified; M17.11 Unilateral primary osteoarthritis, right knee; M47.816 Spondylosis without myelopathy or radiculopathy, lumbar region; M47.812 Spondylosis without myelopathy or radiculopathy, cervical region; E78.5 Hyperlipidemia, unspecified; J44.9 Chronic obstructive pulmonary disease, unspecified; K21.9 Gastro-esophageal reflux disease without esophagitis; I25.10 Atherosclerotic heart disease of native coronary artery without angina pectoris; F17.210 Nicotine dependence, cigarettes, uncomplicated; Z81.8 Family history of other mental and behavioral disorders; Z82.3 Family history of stroke; Z83.3 Family history of diabetes mellitus; Z80.1 Family history of malignant neoplasm of trachea, bronchus and lung; Z80.0 Family history of malignant neoplasm of digestive organs; Z82.49 Family history of ischemic heart disease and other diseases of the circulatory system; Z84.1 Family history of disorders of kidney and ureter; Z83.79 Family history of other diseases of the digestive system; F41.0 Panic disorder [episodic paroxysmal anxiety]; I10 Essential (primary) hypertension; Z91.014 Allergy to mammalian meats; Z96.651 Presence of right artificial knee joint; Z90.49 Acquired absence of other specified parts of digestive tract; Z95.5 Presence of coronary angioplasty implant and graft; G40.909 Epilepsy, unspecified, not intractable, without status epilepticus; I25.2 Old myocardial infarction; Z79.82 Long term (current) use of aspirin; Z79.02 Long term (current) use of antithrombotics/antiplatelets; Z53.21 Procedure and treatment not carried out due to patient leaving prior to being seen by health care provider
CPT/HCPCS: 36415; 74177; 80048; 80053; 81001; 83690; 83735; 84100; 85025; 86705; 86706; 86709; 86803; 87340; 94640; 96361; 96372; 96374; 99285; J1650; J2405; J3475; J7030; J7613; J7626; J9999

== ENCOUNTER → 2025-04-27 12:44 | Outpatient (BNVA) | payer MEDICAID, SELFPAY | PROVIDERS: PCP Family Medicine; Referring Provider Orthopaedic Surgery; Visit Provider Anesthesiology Pain Medicine | DX: M48.062 Spinal stenosis, lumbar region with neurogenic claudication (principal) | CPT/HCPCS: 99204 ==

== ENCOUNTER → 2025-05-06 13:41 | Outpatient (BNVA) | payer MEDICAID, SELFPAY | PROVIDERS: PCP Family Medicine; Visit Provider Anesthesiology Pain Medicine | DX: M79.18 Myalgia, other site (principal); M48.062 Spinal stenosis, lumbar region with neurogenic claudication | CPT/HCPCS: 20553; 99213 ==

== ENCOUNTER → 2025-06-11 14:08 | Outpatient (BNVA) | payer MEDICAID, SELFPAY | PROVIDERS: PCP Family Medicine; Visit Provider Orthopaedic Surgery | DX: M48.062 Spinal stenosis, lumbar region with neurogenic claudication (principal) | CPT/HCPCS: 36415; 80053; 81001; 85025; 99214 ==

== ENCOUNTER → 2025-06-18 08:25 | Outpatient (BNVA) | payer MEDICAID, SELFPAY | PROVIDERS: PCP Family Medicine; Visit Provider Orthopaedic Surgery | DX: I25.10 Atherosclerotic heart disease of native coronary artery without angina pectoris (principal); M48.062 Spinal stenosis, lumbar region with neurogenic claudication; I10 Essential (primary) hypertension; I49.9 Cardiac arrhythmia, unspecified; E78.2 Mixed hyperlipidemia; F17.210 Nicotine dependence, cigarettes, uncomplicated; F12.10 Cannabis abuse, uncomplicated; Z95.5 Presence of coronary angioplasty implant and graft; I25.2 Old myocardial infarction; R07.9 Chest pain, unspecified; I25.118 Atherosclerotic heart disease of native coronary artery with other forms of angina pectoris | CPT/HCPCS: 36415; 80048; 83735; 93005; 99214 ==

== ENCOUNTER 2025-06-24 07:44 | Day surgery (SDC) | payer MEDICAID, SELFPAY ==
[2025-06-24] VITALS (10 sets, daily range): BP systolic 96–125; BP diastolic 65–78; PULSE 68–85; RESP 16–18; TEMP 36.4–36.6; O2SAT 95–99; BMI 27.1
--- NOTE | 2025-06-24 10:15 | ANES.PREANE2 ---
Pre-Anesthetic Assessment Height/Weight: Height 1.68 m Weight 76.204 kg Temp Pulse Resp BP Pulse Ox 97.9 F 68 17 120/73 99 06/24/25 08:23 06/24/25 08:23 06/24/25 08:23 06/24/25 08:23 06/24/25 08:23 Preop Diagnosis: Lumbar stenosis with neurogenic claudication as well as loose hardware Operation Date: 06/24/25 10:25 Proposed Procedures p Lumbar Spine Decompression(Not Applicable) - Alexander Da Silva DO s Hardware Removal Lumbar Lumbar Spine Hardware Removal(Not Applicable) - Alexander Da Silva DO Familial anesthetic complications: None Was Beta Enriqueta taken within 24 hours: N/A Was Clonidine taken within 24 hours: N/A Last intake: Intake Last Liquid Date 06/23/25 Last Liquid Time 19:30 Last Solid Date 06/23/25 Last Solid Time 19:30 Social No alcohol and No tobacco Exam alert, oriented x 3, clear to auscultation bilaterally and regular rate & rhythm Airway Mallampati: Class III Dentition: full Pulmonary Chronic Obstructive Pulmonary Disease CV/HEM Arrythmia, Coronary Artery Disease and Congestive Heart Failure Neuropsych Seizure Anesthetic Plan ASA status: 4 Anesthesia: General Risk of > 500 ml blood loss (7ml/kg in children): No Medications/Allergies Home Medications ?Medication ?Instructions ?Recorded ?Confirmed ?Last Taken ?Type fluticasone 100 mcg-salmeterol 50 1 inh inhalation BID #60 ea 02/05/24 06/23/25 02/02/25 Rx mcg/dose blistr powdr for inhalation (Advair Diskus) nitroglycerin 0.4 mg sublingual 0.4 mg sublingual Q5M PRN chest 02/06/24 06/23/25 Unknown Rx tablet pain 30 days #30 tabs atorvastatin 80 mg tablet 80 mg PO QAM 09/16/24 06/23/25 06/23/25 History aspirin 81 mg tablet,delayed 81 mg PO QAM #90 tabs 03/13/25 06/23/25 06/18/25 Rx release clopidogrel 75 mg tablet 75 mg PO DAILY #90 tabs 04/01/25 06/23/25 06/18/25 Rx potassium chloride 20 mEq 20 meq PO DAILY 04/21/25 06/23/25 06/23/25 History tablet,extended release tamsulosin 0.4 mg capsule 0.4 mg PO QAM #90 caps 05/11/25 06/23/25 06/23/25 Rx buspirone 30 mg tablet 30 mg PO BID #60 tabs 05/18/25 06/23/25 06/23/25 Rx mirtazapine 15 mg tablet 15 mg PO .HS #30 tabs 05/18/25 06/23/25 06/23/25 Rx quetiapine 50 mg tablet (Seroquel) 50 mg PO BEDTIME #30 tabs 05/18/25 06/23/25 06/23/25 Rx clonazepam 0.5 mg tablet (Klonopin) 0.5 mg PO TID anxiety #90 tabs 06/02/25 06/23/25 Unknown Rx zonisamide 100 mg capsule 100 mg PO DAILY #120 caps 06/11/25 06/23/25 06/23/25 Rx hydrocodone 5 mg-acetaminophen 325 1 tab PO Q6H PRN pain 5 days #20 06/23/25 06/24/25 06/24/25 06:30 Rx mg tablet tabs isosorbide mononitrate 30 mg 30 mg PO DAILY 06/23/25 06/23/25 06/23/25 History tablet,extended release 24 hr nicotine 21 mg/24 hr daily 21 mg topical DAILY 06/23/25 06/23/25 06/23/25 History transdermal patch ranolazine 500 mg tablet,extended 500 mg PO BID 06/23/25 06/23/25 06/23/25 History release,12 hr Allergies Allergy/AdvReac Type Severity Reaction Status Date / Time meperidine (From Demerol) Allergy Severe ALGY-Hives Verified 06/24/25 08:08 Alpha-Gal Allergy upset GI Verified 06/24/25 08:08 (Qsbrfvrjf-Lassh-0,3-Gala (Cywpyamgx-Gqmgq-0,3-Galactose (Alph) gabapentin AdvReac Severe ADR-Seizure Verified 06/24/25 08:08 morphine AdvReac Severe ALGY-Hives Verified 06/24/25 08:08 tramadol AdvReac Severe ADR-Seizure Verified 06/24/25 08:08 Current Medications Generic Name Dose Route Start Last Admin Trade Name Freq PRN Reason Stop Dose Admin Sodium Chloride 1,000 mls @ 30 mls/hr 06/24/25 08:30 06/24/25 08:31 Sodium Chloride 0.9% IV 06/25/25 08:29 30 mls/hr .Q24H LUKE Administration PFSH Anesthesia Medical History Tinnitus Psychiatric care History of cardiovascular stress test 02/2024 Jejunitis hx in 07/2024 Chronic pancreatitis Panic attacks NSTEMI (non-ST elevated myocardial infarction) CAD (coronary artery disease) Cath 06/2024 30-40% stenosis in previously treated segment of RCA Colitis Direct inguinal hernia of right side COVID-19 (~04/2023) Moderate major depression Generalized anxiety disorder Alpha-gal syndrome Heart failure with mildly reduced ejection fraction (HFmrEF) Chronic abdominal pain Hyponatremia H. pylori duodenitis Elevated glucose Anxiety and depression Alpha galactosidase deficiency C. difficile colitis Medical marijuana use Diverticulosis seen in colonoscopy in 2023 GERD (gastroesophageal reflux disease) Urethral stricture COPD (chronic obstructive pulmonary disease) Essential (primary) hypertension Seizure disorder Mixed hyperlipidemia Osteoarthritis rt knee, cervical and Lumbar spine Surgical History History of cardiac catheterization 06/2024 - multiple prior PCIs, LM no sig stenosis, LAD minimal in-stent narrowing mid segment, LCx no severe lesions, Patent stented RCA with 30-40% jaqueline-stent stenosis. Recs: Medical therapy Status post lumbar spinal fusion L5/S1 & L4/L5 fusion, Dr Da Silva History of esophagogastroduodenoscopy (EGD) 2021. Showing esophagitis, gastritis, and duodenitis with + H.pylori biopsies History of back surgery Status post right knee replacement Hx of reconstruction of anterior cruciate ligament tear H/O neck surgery H/O left knee surgery History of appendectomy History of cholecystectomy H/O right knee surgery arthroscopic R lateral meniscetomy, chrondroplasty H/O chest tube placement H/O removal of testicle Stented coronary artery Family History Brother Parkinson disease Cancer Diabetes Stroke Bone cancer Family/Other Cancer Chronic kidney disease (CKD) Suicide Esophageal cancer Lung cancer Grandmother CAD (coronary artery disease) Cancer Lung disease Grandfather Dementia Mother Lung disease Father Suicide Other Colitis Denies family history of Clotting disorder Anesthesia complication Bleeding disorder Social History Smoking and tobacco/nicotine status: unknown if used tobacco/nicotine Quit status (tobacco/nicotine): has tried quititng Alcohol intake: never Substance/Drug Use: current Substance/Drug use frequency: daily Other substance/drug use details: medical card Lives independently: Yes Household members: significant other service: No Current occupational status: disabled Current occupational exposures/hazards: Yes Do you think of yourself as: Straight/Heterosexual Current gender identity: Male Data Anesthesia Cardiac Studies: Echocardiogram 08/25/24 Echocardiogram Limited Views 08/07/22 Sestamibi Stress Test (Cardiology) 02/29/24 Cardiac Event Monitor 12/25/24
--- NOTE | 2025-06-24 10:16 | W.PM.OPSUD ---
Surgery/Procedure H&P Update DATE OF PROCEDURE: June 24, 2025 DATE H&P PERFORMED: 06/18/25 H&P UPDATE INFORMATION: I have reviewed H&P completed within last 30 days, I have examined patient prior to procedure and No changes to prior documentation PREOP DIAGNOSIS: Lumbar stenosis with neurogenic claudication as well as loose hardware PLANNED PROCEDURE: Operation Date: 06/24/25 10:25 Proposed Procedures p Lumbar Spine Decompression(Not Applicable) - Alexander Da Silva DO s Hardware Removal Lumbar Lumbar Spine Hardware Removal(Not Applicable) - Alexander Da Silva DO
[2025-06-24] MEDS: ceFAZolin 2,000 mg SDV 2000 MG IVP (11:16)
[2025-06-24] MEDS: lidocaine-epi 1% 20 mL INJ 10 ML INJECTION (12:08)
--- NOTE | 2025-06-24 12:55 | PM.OP ---
Operative Report Date of procedure: June 24, 2025 Pre-op diagnosis: Lumbar stenosis with neurogenic claudication Loose hardware L4 screws. Surgeon: Alexander Da Silva DO Estimated blood loss (mL): 50 Procedure: Lumbar stenosis with neurogenic claudication Loose hardware L4 screws. Patient is brought to the operative suite. After undergoing anesthesia they are placed in the prone position. All areas of impingement are well padded. Patient is then prepped and draped in the normal sterile fashion. A skin incision is made over the L3-4 level. This is confirmed under c-arm guidance. A series of dilators are passed and the tubular retractor is docked on the L3 lamina. A bovie is used to clear the soft tissue off the lamina and the L 3/4 facet joint. A high speed leo is then used to perform the laminectomy and take down the medial aspect of the L 3/4 facet joint. A kerrison rongeure was then used to take down the remaining lamina and smooth the edge of the laminectomy up to the point where the ligamentum flavum attaches. Attention was then brought to the medial aspect of the facet joint. The remaining medial aspect of the superior and inferior aspect of the facet joint were taken down with the kerrison from the pedicle of L3 to L 4. The facet joint had significant hypertrophy. Attention was then brought to the Ligamentum Flavum. The ligament was taken down from the lamina of L3 to L4 and out medially to the remaining facet joint. The ligament was thick. The dura was then exposed. The dura was in good repair. The L3 nerve was then traced with a curette out the L3/4 foramen and found to be adequately decompressed. The L4 nerve was traced with a curette around the L4 pedicle. The lateral recess was opened with a kerrison helping to further decompress the L4 nerve. Wound is then irrigated copiously with saline and surgiflo is used to stop any bleeding. The tubular retractor is removed and the wound is closed with vicryl and monocryl suture. Steri strips were applied. A sterile dressing is then placed. Patient was then placed in the supine position and transferred to the PACU in stable condition.
[2025-06-24] MEDS: fentaNYL 50 mcg/mL INJ 2mL IVP ×2 (13:05→13:15)
[2025-06-24] MEDS: HYDROcodone-acetaminophen 5-325 mg Tablet 2 TAB PO (13:46)
--- NOTE | 2025-06-24 16:26 | XR_ITS ---
WS: [id number] INTRAOPERATIVE TECHNIQUE: 4 Spot fluoroscopic images for intraoperative purposes. FLUOROSCOPY TIME: 5 seconds CLINICAL INFORMATION: OR FINDINGS: Localization marker projected over the L3-4 interspace XR/XR lumbar spine 2-3V* [id number] IMPRESSION: Images obtained for intraoperative purposes.
== END 2025-06-24 14:30 | disposition home or self-care (01) ==
PROVIDERS: PCP Family Medicine; Visit Provider Orthopaedic Surgery
PROC: (CPT 63005; principal; 2025-06-24 10:05)
PROC: (CPT 63047; 2025-06-24 10:05)
DX: M48.062 Spinal stenosis, lumbar region with neurogenic claudication (principal); T84.226A Displacement of internal fixation device of vertebrae, initial encounter; Y70.2 Prosthetic and other implants, materials and accessory anesthesiology devices associated with adverse incidents; J44.9 Chronic obstructive pulmonary disease, unspecified; I49.9 Cardiac arrhythmia, unspecified; I25.10 Atherosclerotic heart disease of native coronary artery without angina pectoris; I11.0 Hypertensive heart disease with heart failure; I50.9 Heart failure, unspecified; E78.2 Mixed hyperlipidemia; K21.9 Gastro-esophageal reflux disease without esophagitis; F41.9 Anxiety disorder, unspecified; F32.9 Major depressive disorder, single episode, unspecified; Z91.014 Allergy to mammalian meats; G40.909 Epilepsy, unspecified, not intractable, without status epilepticus; I25.2 Old myocardial infarction; Z95.5 Presence of coronary angioplasty implant and graft; F12.90 Cannabis use, unspecified, uncomplicated
CPT/HCPCS: 63047; 20680; 72100; 76000; J0690; J1100; J2250; J2405; J3010; J3373; J3490; J7030; J9999

== ENCOUNTER 2025-07-06 07:18 | Emergency (ER) | payer MEDICAID, SELFPAY ==
[2025-07-06] VITALS (7 sets, daily range): BP systolic 101–143; BP diastolic 62–89; PULSE 58–74; RESP 16; TEMP 36.8; O2SAT 95–100; BMI 25.8
--- NOTE | 2025-07-06 07:25 | W.ED.GENADLT ---
HPI - General Adult General: Chief complaint: Nausea/Vomiting/Diarrhea Stated complaint: n/v/d, throat swelling Time Seen by Provider: 07/06/25 07:23 Source: patient Mode of arrival: ambulatory Limitations: no limitations History of Present Illness: 54-year-old male states he has been having nausea vomiting since Sunday. He states he had some slight improvement has been having some abdominal cramping. He denies any fevers denies any worse or improving factors. Associated symptoms: Reports vomiting Related Data Home Medications ?Medication ?Instructions ?Recorded ?Confirmed atorvastatin 80 mg tablet 80 mg PO QAM 09/16/24 07/06/25 potassium chloride 20 mEq 20 meq PO DAILY 04/21/25 07/06/25 tablet,extended release isosorbide mononitrate 30 mg 30 mg PO DAILY 06/23/25 07/06/25 tablet,extended release 24 hr nicotine 21 mg/24 hr daily 21 mg topical DAILY 06/23/25 07/06/25 transdermal patch ranolazine 500 mg tablet,extended 500 mg PO BID 06/23/25 07/06/25 release,12 hr obuzqucbv-lnjancctq-QP-acetaminophen 2 ea PO Q6H 07/06/25 07/06/25 2 mg-5 mg-10 mg-325mg d/n tablets Previous Rx's ?Medication ?Instructions ?Recorded nitroglycerin 0.4 mg sublingual 0.4 mg sublingual Q5M PRN chest 02/06/24 tablet pain 30 days #30 tabs aspirin 81 mg tablet,delayed 81 mg PO QAM #90 tabs 03/13/25 release Held on 06/24/25. Instructions: Resume on 06/26/25. clopidogrel 75 mg tablet 75 mg PO DAILY #90 tabs 04/01/25 Held on 06/24/25. Instructions: Resume on 06/26/25. tamsulosin 0.4 mg capsule 0.4 mg PO QAM #90 caps 05/11/25 buspirone 30 mg tablet 30 mg PO BID #60 tabs 05/18/25 mirtazapine 15 mg tablet 15 mg PO .HS #30 tabs 05/18/25 quetiapine 50 mg tablet (Seroquel) 50 mg PO BEDTIME #30 tabs 05/18/25 clonazepam 0.5 mg tablet (Klonopin) 0.5 mg PO TID anxiety #90 tabs 06/02/25 zonisamide 100 mg capsule 100 mg PO DAILY #120 caps 06/11/25 hydrocodone 5 mg-acetaminophen 325 1 - 2 tab PO .Q4-6H #40 tabs 06/24/25 mg tablet ondansetron 4 mg disintegrating 4 mg PO Q6H PRN nausea and 07/06/25 tablet vomiting #14 tabs potassium chloride 40 mEq/15 mL 40 meq (15 mL) PO BID 5 days #150 07/06/25 oral liquid mL Allergies Allergy/AdvReac Type Severity Reaction Status Date / Time meperidine (From Demerol) Allergy Severe ALGY-Hives Verified 06/24/25 08:08 Alpha-Gal Allergy upset GI Verified 06/24/25 08:08 (Afpguajhm-Elbus-6,3-Gala (Piacalohj-Ivrnf-7,3-Galactose (Alph) gabapentin AdvReac Severe ADR-Seizure Verified 06/24/25 08:08 morphine AdvReac Severe ALGY-Hives Verified 06/24/25 08:08 tramadol AdvReac Severe ADR-Seizure Verified 06/24/25 08:08 Review of Systems GI: Reports: vomiting PFS ED PFSH: Medical History (Updated 07/06/25 @ 11:37 by Mercedes Gaines MD) [facility] History of cardiovascular stress test 02/2024 Jejunitis hx in 07/2024 Chronic pancreatitis Panic attacks NSTEMI (non-ST elevated myocardial infarction) CAD (coronary artery disease) Cath 06/2024 30-40% stenosis in previously treated segment of RCA Colitis Direct inguinal hernia of right side COVID-19 (~04/2023) Moderate major depression Generalized anxiety disorder Alpha-gal syndrome Heart failure with mildly reduced ejection fraction (HFmrEF) Chronic abdominal pain Hyponatremia H. pylori duodenitis Elevated glucose Anxiety and depression Alpha galactosidase deficiency C. difficile colitis Medical marijuana use Diverticulosis seen in colonoscopy in 2023 GERD (gastroesophageal reflux disease) Urethral stricture COPD (chronic obstructive pulmonary disease) Essential (primary) hypertension Seizure disorder Mixed hyperlipidemia Osteoarthritis rt knee, cervical and Lumbar spine Surgical History History of cardiac catheterization 06/2024 - multiple prior PCIs, LM no sig stenosis, LAD minimal in-stent narrowing mid segment, LCx no severe lesions, Patent stented RCA with 30-40% jaqueline-stent stenosis. Recs: Medical therapy Status post lumbar spinal fusion L5/S1 & L4/L5 fusion, Dr Da Silva History of esophagogastroduodenoscopy (EGD) 2021. Showing esophagitis, gastritis, and duodenitis with + H.pylori biopsies History of back surgery Status post right knee replacement Hx of reconstruction of anterior cruciate ligament tear H/O neck surgery H/O left knee surgery History of appendectomy History of cholecystectomy H/O right knee surgery arthroscopic R lateral meniscetomy, chrondroplasty H/O chest tube placement H/O removal of testicle Stented coronary artery Family History Brother Parkinson disease Cancer Diabetes Stroke Bone cancer Family/Other Cancer Chronic kidney disease (CKD) Suicide Esophageal cancer Lung cancer Grandmother CAD (coronary artery disease) Cancer Lung disease Grandfather Dementia Mother Lung disease Father Suicide Other Colitis Denies family history of Clotting disorder Anesthesia complication Bleeding disorder Social History Smoking and tobacco/nicotine status: unknown if used tobacco/nicotine Quit status (tobacco/nicotine): has tried quititng Alcohol intake: never Substance/Drug Use: current Substance/Drug use frequency: daily Other substance/drug use details: medical card Lives independently: Yes Household members: significant other service: No Current occupational status: disabled Current occupational exposures/hazards: Yes Do you think of yourself as: Straight/Heterosexual Current gender identity: Male Physical Exam Const: COMMON NORMALS: no acute distress, patient oriented x3 and healthy appearing HENMT: COMMON NORMALS: normocephalic and atraumatic HEAD & SCALP: normocephalic and atraumatic Neck/C-Spine: COMMON NORMALS: full ROM and supple Chest: COMMONS NORMALS: normal inspection of the chest and normal palpation of entire chest wall Resp: COMMON NORMALS: normal respiratory effort, No retractions, No use of accessory muscles and clear to auscultation bilaterally AUSCULTATION: clear to auscultation bilaterally Cardio: COMMON NORMALS: regular rate, regular rhythm and No murmurs present (Cardio) RATE: regular rate RHYTHM: regular rhythm GI: COMMON NORMALS: Normal to inspection, nondistended, normoactive bowel sounds present, Soft to palpation, non-tender and no masses PALPATION: Yes Soft to palpation Extremity: COMMON NORMALS: normal to inspection and full ROM Neuro: COMMON NORMALS: patient oriented x3, moves all extremities and no focal motor deficits Psych: COMMON NORMALS: mental status grossly normal, Normal thought process present and cooperative THOUGHT PROCESS: Normal thought process present Skin: COMMON NORMALS: no rashes or lesions noted and no wounds GENERAL SKIN EXAM: no rashes or lesions noted Course Vital Signs: Vital signs: Vital Signs Temperature 98.3 F 07/06/25 07:22 Pulse Rate 58 L 07/06/25 11:00 Respiratory Rate 16 07/06/25 10:42 Blood Pressure 101/62 07/06/25 11:00 Pulse Oximetry 96 07/06/25 11:00 Oxygen Delivery Me thod Room Air 07/06/25 11:00 MDM - General Adult Medical Decision Making Patient presents here with nausea and vomiting. Found to have hypokalemia along with hyponatremia CT scan shows no signs of bowel obstruction. This is likely a viral gastritis. He was given oral potassium here along with IV fluids he has had no vomiting here is tolerated p.o. He has follow-up with his spine surgeon this week Dr. Da Silva I did speak to Dr. Calderon I went over the CT findings with him as likely seroma. Patient stable for discharge follow-up return if worsening he understands agrees to plan [place] at 0839 normal sinus rhythm heart rate [address] elevation QRS 103 QTc 488 Medical Records I reviewed the patient's medical records. Lab Data I reviewed the patient's lab results. 07/06/25 07:47 07/06/25 07:47 Radiology Impressions Abdomen/Pelvis CT 07/06/25 08:24 IMPRESSION: 1. Mild fluid distention of the small bowel and colon. Consider mild gastroenteritis. No obstructive pattern. 2. Recent removal of pedicle screws at L4. 3. Fluid collections now noted in the LEFT L3-4 hemilaminectomy site and in the posterior subcutaneous soft tissues centered at L3-4. There is peripheral enhancement of 2 collections. These may be normal postoperative seromas. Abscesses need to be considered. 4. Prior cholecystectomy. 5. Prior appendectomy. 6. Sigmoid diverticulosis without acute diverticulitis. Laboratory Results WBC 16.55 10^3/uL (3.29-11.43) H 07/06/25 07:47 RBC 4.28 10^6/uL (3.85-5.65) 07/06/25 07:47 Hgb 13.90 g/dL (11.27-16.99) 07/06/25 07:47 Hct 38.5 % (37-53) 07/06/25 07:47 MCV 90.0 fl (82-101) 07/06/25 07:47 MCH 32.5 pg (27-33) 07/06/25 07:47 MCHC 36.1 g/dL (30-55) 07/06/25 07:47 RDW 11.7 % (12.1-15.1) L 07/06/25 07:47 Plt Count 347 10^3/cmm (157-399) 07/06/25 07:47 MPV 8.3 fL (7.4-10.4) 07/06/25 07:47 Neut % (Auto) 73.2 % 07/06/25 07:47 Lymph % (Auto) 17.5 % 07/06/25 07:47 Petroleum % (Auto) 7.2 % 07/06/25 07:47 Eos % (Auto) 1.3 % 07/06/25 07:47 Baso % (Auto) 0.3 % 07/06/25 07:47 Neut # (Auto) 12.10 10^3/uL (1.8-7.7) H 07/06/25 07:47 Lymph # (Auto) 2.9 10^3/uL (0.8-4.8) 07/06/25 07:47 Petroleum # (Auto) 1.2 10^3/uL (0.2-0.9) H 07/06/25 07:47 Eos # (Auto) 0.2 10^3/uL (0.0-0.8) 07/06/25 07:47 Baso # (Auto) 0.1 10^3/uL (0.0-0.1) 07/06/25 07:47 Nucleated RBC % (auto) 0 % 07/06/25 07:47 Nucleated RBCs # 0.0 /100WBC 07/06/25 07:47 Sodium Cancelled 07/06/25 11:21 Potassium Cancelled 07/06/25 11:21 Chloride Cancelled 07/06/25 11:21 Carbon Dioxide Cancelled 07/06/25 11:21 Anion Gap Cancelled 07/06/25 11:21 BUN Cancelled 07/06/25 11:21 Creatinine Cancelled 07/06/25 11:21 GFR Calculation Cancelled 07/06/25 11:21 Glucose Cancelled 07/06/25 11:21 Calculated Osmolality Cancelled 07/06/25 11:21 Calcium Cancelled 07/06/25 11:21 Magnesium 1.8 mg/dL (1.7-2.3) 07/06/25 07:47 Total Bilirubin 1.6 mg/dL (0.15-1.2) H 07/06/25 07:47 AST 21 U/L (0-40) 07/06/25 07:47 ALT 12 U/L (0-41) 07/06/25 07:47 Alkaline Phosphatase 91 U/L (40-130) 07/06/25 07:47 Total Protein 7.4 g/dL (6.6-8.7) 07/06/25 07:47 Albumin 4.5 g/dL (3.5-5.2) 07/06/25 07:47 Globulin 2.9 g/dL (1.3-4.6) 07/06/25 07:47 Lipase 71 U/L (13-60) H 07/06/25 07:47 All radiology interpretation(s) finalized by discharge Discharge Plan Discharge Patient Disposition: Home Clinical Impression: Hypokalemia, Vomiting Condition: Stable Prescriptions: New potassium chloride 40 mEq/15 mL liquid 40 meq PO BID 5 Days Qty: 150 0RF ondansetron 4 mg tablet,disintegrating 4 mg PO Q6H PRN (Reason: nausea and vomiting) Qty: 14 0RF No Action nitroglycerin 0.4 mg tablet, sublingual 0.4 mg sublingual Q5M PRN (Reason: chest pain) 30 Days Qty: 30 3RF quetiapine [Seroquel] 50 mg tablet 50 mg PO BEDTIME Qty: 30 2RF mirtazapine 15 mg tablet 15 mg PO .HS Qty: 30 2RF buspirone 30 mg tablet 30 mg PO BID Qty: 60 2RF clonazepam [Klonopin] 0.5 mg tablet 0.5 mg PO TID Qty: 90 1RF aspirin 81 mg tablet,delayed release (DR/EC) 81 mg PO QAM Qty: 90 1RF clopidogrel 75 mg tablet 75 mg PO DAILY Qty: 90 1RF tamsulosin 0.4 mg capsule 0.4 mg PO QAM Qty: 90 0RF zonisamide 100 mg capsule 100 mg PO DAILY Qty: 120 0RF potassium chloride 20 mEq tablet extended release 20 meq PO DAILY isosorbide mononitrate 30 mg tablet extended release 24 hr 30 mg PO DAILY Rx Instructions: TAKE 1 TABLET BY MOUTH DAILY nicotine 21 mg/24 hr patch 24 hour 21 mg topical DAILY ranolazine 500 mg tablet extended release 12 hr 500 mg PO BID Rx Instructions: TAKE 1 TABLET BY MOUTH TWICE DAILY hydrocodone-acetaminophen 5-325 mg tablet 1 - 2 tab PO .Q4-6H Qty: 40 0RF Daytime and Nighttime Cold 2-5-10-325 mg Tablets, Sequential 2 ea PO Q6H atorvastatin 80 mg tablet 80 mg PO QAM Discharge Orders: Discharge ED (Routine); Ordered 07/06/25 Ordered By: Mercedes Gaines Referrals: Wang Bethea DO [Primary Care Provider, Family Practice] Discharge Diet: Advance as tolerated Discharge Activity: Resume usual activity Patient Instructions: Hypokalemia (ED), Acute Nausea and Vomiting (ED) Print Language: Sami Coding Level of Care Code ED 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
[2025-07-06 07:53] LABS: Hematocrit 38.5 % (37-53); Hemoglobin 13.90 g/dL (11.27-16.99); Mean Corpuscular HGB Conc 36.1 g/dL (30-55); Mean Corpuscular Hemoglobin 32.5 pg (27-33); Mean Corpuscular Volume 90.0 fl (82-101); Nucleated Red Blood Cells % 0 %; Platelet Count 347 10^3/cmm (157-399); Red Blood Count 4.28 10^6/uL (3.85-5.65); White Blood Count 16.55 10^3/uL (3.29-11.43)
[2025-07-06] MEDS: ondansetron 2 mg/ML SDV 2 mL 4 MG IVP (08:09)
[2025-07-06] MEDS: morphine 4 mg/mL SDV 1 mL IVP ×2 (08:09→10:42)
[2025-07-06 08:11] LABS: Alanine Aminotransferase 12 U/L (0-41); Albumin Level 4.5 g/dL (3.5-5.2); Alkaline Phosphatase 91 U/L (40-130); Anion Gap 17.5 (5-19); Aspartate Amino Transferase 21 U/L (0-40); Blood Urea Nitrogen 23 mg/dL (6-20); Calcium 9.2 mg/dL (8.5-10.5); Carbon Dioxide 22 mmol/L (22-29); Chloride 89 mmol/L (98-107); Globulin 2.9 g/dL (1.3-4.6); Glucose 120 mg/dL (65-115); Lipase 71 U/L (13-60); Osmolality Calculated 267 mOsm/kg (285-295); Sodium 126 mmol/L (136-145); Total Protein 7.4 g/dL (6.6-8.7)
[2025-07-06 08:23] LABS: Potassium 2.5 mmol/L (3.5-5.1)
--- NOTE | 2025-07-06 08:24 | CT_ITS ---
WS: [id number] CT ABDOMEN AND PELVIS WITH CONTRAST HISTORY: vomiting TECHNIQUE: Imaging performed of the abdomen and pelvis with IV contrast. Single phase imaging of the abdomen. Coronal and sagittal reformats are submitted. All CT scans at [facility] use at least one of these dose optimization techniques: automated exposure control; mA and/or kV adjustment per patient size (includes targeted exams where dose is matched to clinical indication); or iterative reconstruction. IV CONTRAST: Omnipaque 350; 100 mL IV. Oral contrast: No DLP: 473.53 mGy.cm COMPARISON: 04/20/2025 Lower thorax: Linear atelectasis LEFT lung base with benign granulomata. Heart is normal size. Small hiatal hernia. Liver/biliary system: Normal size liver with areas of focal fatty sparing in steatosis. Gallbladder: Prior cholecystectomy. Pancreas: Normal common bile duct at the pancreatic head. No pancreatic duct dilatation. No mass. Spleen: Normal size spleen. No mass or infarct. Adrenal glands: Normal. Right kidney: No renal obstruction or perinephric stranding. Numerous cysts. The largest cyst measures 3.8 x 3.6 cm. No perinephric stranding. Left kidney: No obstruction. Tiny cortical cysts. Aorta: Moderate atherosclerosis aorta. No aneurysm mesenteric arteries are patent.. Lymphadenopathy: None. Free fluid: None. GI tract: Stomach is nondistended. No small bowel obstruction. There is increased fluid in the duodenal C-loop. In the distal small bowel there is also increased fluid. Prior appendectomy. Increased liquid feces in the colon but no obstructive pattern. There are a few distal colonic diverticula. No acute diverticulitis. Abdominal wall: Unremarkable abdominal wall. No hernia. Pelvis: No free fluid in the pelvis. Urinary bladder is mildly distended. Bones: Status post posterior lumbar fusion at L5-S1. Screw removal tracts are present at L4. Interbody spacers at L4-5 and L5-S1. Fluid collections noted in the LEFT L3-4 laminectomy space measures 2.8 x 4.0 cm. There is a small peripherally enhancing component in the posterior more inferior laminectomy space. There is an additional peripherally enhancing subcutaneous fluid collection in this midline measuring 5.0 x 2.9 cm. This collection is posterior to the L3-4 disc level. Neither of these collections were present on 04/20/2025. CT/CT abdomen pelvis w con* [id number] IMPRESSION: 1. Mild fluid distention of the small bowel and colon. Consider mild gastroent eritis. No obstructive pattern. 2. Recent removal of pedicle screws at L4. 3. Fluid collections now noted in the LEFT L3-4 hemilaminectomy site and in th e posterior subcutaneous soft tissues centered at L3-4. There is peripheral enh ancement of 2 collections. These may be normal postoperative seromas. Abscesses need to be considered. 4. Prior cholecystectomy. 5. Prior appendectomy. 6. Sigmoid diverticulosis without acute diverticulitis.
--- NOTE | 2025-07-06 08:24 | ECG_ITS ---
[facility] 2025-07-06 Pat Name: Josue Cheng Department: Room: Gender: Male Hospice Consultant: : 1970 Requested By: Mercedes Gaines Order Number: [id number] Archana MD: Harsha Almeida M.D. Measurements Intervals [place] Rate: 69 P: 81 AR: 170 QRS: 90 QRSD: 103 T: 66 QT: 468 QTc: 504 Interpretive Statements SINUS RHYTHM WITH FREQUENT VENTRICULAR PREMATURE COMPLEXES MINIMAL ST DEPRESSION [0.025+ mV ST DEPRESSION] PROLONGED QT INTERVAL Compared to ECG 01/16/2025 21:37:32 NO SIGNIFICANT CHANGE Electronically Signed On 07-08-2025 22:28:15 [employer] by Harsha Almeida M.D. [email or web address]
[2025-07-06] MEDS: iohexol 350 mg/mL 500 mL Btl (per mL) IV (08:35)
[2025-07-06] MEDS: magnesium sulfate premix 2 GM/50 ML PIGGYBACK IV (08:56)
[2025-07-06 09:01] LABS: Magnesium 1.8 mg/dL (1.7-2.3)
--- NOTE | 2025-07-06 10:51 | PC.NURSE ---
LAB NOTIFIED THAT REPEAT BMP HEMOLYZED. LAB TO COME AND REDRAW.
== END 2025-07-06 11:45 | disposition home or self-care (01) ==
PROVIDERS: Emergency Provider Emergency Medicine; PCP Family Medicine
DX: E87.6 Hypokalemia (principal); R11.10 Vomiting, unspecified; Z79.82 Long term (current) use of aspirin; Z79.02 Long term (current) use of antithrombotics/antiplatelets; I25.10 Atherosclerotic heart disease of native coronary artery without angina pectoris; J44.9 Chronic obstructive pulmonary disease, unspecified; E78.2 Mixed hyperlipidemia; I11.0 Hypertensive heart disease with heart failure; I50.20 Unspecified systolic (congestive) heart failure
CPT/HCPCS: 36415; 74177; 80053; 83690; 83735; 85025; 93005; 96365; 96375; 96376; 99285; J2270; J2405; J3475; J7030; J9999

== ENCOUNTER 2025-07-07 11:05 | Emergency (ER) | payer MEDICAID, SELFPAY ==
[2025-07-07 11:08] VITALS: BP 104/70; PULSE 70; RESP 16; TEMP 36.9; O2SAT 97
--- NOTE | 2025-07-07 11:11 | W.ED.GENADLT ---
HPI - General Adult General: Chief complaint: General Medical Stated complaint: unable to swallow History of Present Illness: 54-year-old male presents to the emergency room with complaints of difficulty swallowing. He was seen yesterday as well generally has not felt well he recently had back surgery today returns because they found that he had a gas leak in his home and just generally has not felt well he states he feels like having a little bit of difficulty swallowing. He has been able to swallow water. In talking to him it sounds as if he had a propane leak but not carbon oxide leak. He is awake and alert he is feels mildly nauseated no significant chest pain.. He has back pain but this is chronic Associated symptoms: Reports nausea; Deny chest pain, dyspnea, rash or vomiting Related Data Home Medications ?Medication ?Instructions ?Recorded ?Confirmed atorvastatin 80 mg tablet 80 mg PO QAM 09/16/24 07/09/25 potassium chloride 20 mEq 20 meq PO DAILY 04/21/25 07/09/25 tablet,extended release isosorbide mononitrate 30 mg 30 mg PO DAILY 06/23/25 07/09/25 tablet,extended release 24 hr nicotine 21 mg/24 hr daily 21 mg topical DAILY 06/23/25 07/09/25 transdermal patch ranolazine 500 mg tablet,extended 500 mg PO BID 06/23/25 07/09/25 release,12 hr jziatcxqn-mgmtypyum-FM-acetaminophen 2 ea PO Q6H 07/06/25 07/09/25 2 mg-5 mg-10 mg-325mg d/n tablets Previous Rx's ?Medication ?Instructions ?Recorded nitroglycerin 0.4 mg sublingual 0.4 mg sublingual Q5M PRN chest 02/06/24 tablet pain 30 days #30 tabs aspirin 81 mg tablet,delayed 81 mg PO QAM #90 tabs 03/13/25 release Held on 06/24/25. Instructions: Resume on 06/26/25. clopidogrel 75 mg tablet 75 mg PO DAILY #90 tabs 04/01/25 Held on 06/24/25. Instructions: Resume on 06/26/25. tamsulosin 0.4 mg capsule 0.4 mg PO QAM #90 caps 05/11/25 buspirone 30 mg tablet 30 mg PO BID #60 tabs 05/18/25 mirtazapine 15 mg tablet 15 mg PO .HS #30 tabs 05/18/25 quetiapine 50 mg tablet (Seroquel) 50 mg PO BEDTIME #30 tabs 05/18/25 clonazepam 0.5 mg tablet (Klonopin) 0.5 mg PO TID anxiety #90 tabs 06/02/25 zonisamide 100 mg capsule 100 mg PO DAILY #120 caps 06/11/25 hydrocodone 5 mg-acetaminophen 325 1 - 2 tab PO .Q4-6H #40 tabs 06/24/25 mg tablet ondansetron 4 mg disintegrating 4 mg PO Q6H PRN nausea and 07/06/25 tablet vomiting #14 tabs hydrocodone 7.5 mg-acetaminophen 1 tab PO Q4H PRN pain 7 days #42 07/08/25 325 mg tablet tabs Allergies Allergy/AdvReac Type Severity Reaction Status Date / Time meperidine (From Demerol) Allergy Severe ALGY-Hives Verified 07/09/25 07:35 Alpha-Gal Allergy upset GI Verified 07/09/25 07:35 (Ehlszobcs-Dudps-0,3-Gala (Gplaetbso-Kkvcx-5,3-Galactose (Alph) gabapentin AdvReac Severe ADR-Seizure Verified 07/09/25 07:35 morphine AdvReac Severe ALGY-Hives Verified 07/09/25 07:35 tramadol AdvReac Severe ADR-Seizure Verified 07/09/25 07:35 Review of Systems Const: Denies: fever(s) or chills Card: Denies: chest pain Resp: Denies: dyspnea GI: Reports: abdominal pain and nausea; Denies: vomiting : Denies: dysuria, urinary frequency or urinary urgency Musc: Denies: neck pain or back pain Skin/Breast: Denies: rash PFSH ED PFSH: Medical History [facility] Psychiatric care History of cardiovascular stress test 02/2024 Jejunitis hx in 07/2024 Chronic pancreatitis Panic attacks NSTEMI (non-ST elevated myocardial infarction) CAD (coronary artery disease) Cath 06/2024 30-40% stenosis in previously treated segment of RCA Colitis Direct inguinal hernia of right side COVID-19 (~04/2023) Moderate major depression Generalized anxiety disorder Alpha-gal syndrome Heart failure with mildly reduced ejection fraction (HFmrEF) Chronic abdominal pain Hyponatremia H. pylori duodenitis Elevated glucose Anxiety and depression Alpha galactosidase deficiency C. difficile colitis Medical marijuana use Diverticulosis seen in colonoscopy in 2023 GERD (gastroesophageal reflux disease) Urethral stricture COPD (chronic obstructive pulmonary disease) Essential (primary) hypertension Seizure disorder Mixed hyperlipidemia Osteoarthritis rt knee, cervical and Lumbar spine Surgical History History of cardiac catheterization 06/2024 - multiple prior PCIs, LM no sig stenosis, LAD minimal in-stent narrowing mid segment, LCx no severe lesions, Patent stented RCA with 30-40% jaqueline-stent stenosis. Recs: Medical therapy Status post lumbar spinal fusion L5/S1 & L4/L5 fusion, Dr Da Silva History of esophagogastroduodenoscopy (EGD) 2021. Showing esophagitis, gastritis, and duodenitis with + H.pylori biopsies History of back surgery Status post right knee replacement Hx of reconstruction of anterior cruciate ligament tear H/O neck surgery H/O left knee surgery History of appendectomy History of cholecystectomy H/O right knee surgery arthroscopic R lateral meniscetomy, chrondroplasty H/O chest tube placement H/O removal of testicle Stented coronary artery Family History Brother Parkinson disease Cancer Diabetes Stroke Bone cancer Family/Other Cancer Chronic kidney disease (CKD) Suicide Esophageal cancer Lung cancer Grandmother CAD (coronary artery disease) Cancer Lung disease Grandfather Dementia Mother Lung disease Father Suicide Other Colitis Denies family history of Clotting disorder Anesthesia complication Bleeding disorder Social History Smoking and tobacco/nicotine status: unknown if used tobacco/nicotine Quit status (tobacco/nicotine): has tried quititng Alcohol intake: never Substance/Drug Use: current Substance/Drug use frequency: daily Other substance/drug use details: medical card Lives independently: Yes Household members: significant other service: No Current occupational status: disabled Current occupational exposures/hazards: Yes Do you think of yourself as: Straight/Heterosexual Current gender identity: Male Physical Exam Const: GENERAL APPEARANCE: cooperative ORIENTATION/CONSCIOUSNESS: Yes awake, Yes oriented to person, Yes oriented to place and Yes oriented to time HENMT: COMMON NORMALS: normocephalic, atraumatic and hearing grossly normal bilaterally HEAD & SCALP: normocephalic and atraumatic Resp: COMMON NORMALS: normal respiratory effort, No retractions, No use of accessory muscles and clear to auscultation bilaterally AUSCULTATION: clear to auscultation bilaterally Cardio: COMMON NORMALS: regular rate, regular rhythm and No murmurs present (Cardio) RATE: regular rate RHYTHM: regular rhythm GI: COMMON NORMALS: Soft to palpation and No hepatosplenomegaly present AUSCULTATION: Yes normoactive bowel sounds PALPATION: Yes Soft to palpation, No Tenderness to palpation present (GI), No Guarding due to palpation present (GI) and Yes No hepatosplenomegaly present Extremity: COMMON NORMALS: normal to inspection, capillary refill normal, no clubbing, cyanosis or edema, no calf tenderness and no pedal edema Neuro: SENSORIUM/ORIENTATION: Yes oriented to person, Yes oriented to place and Yes oriented to time Skin: COMMON NORMALS: no rashes or lesions noted GENERAL SKIN EXAM: no rashes or lesions noted Course Vital Signs: Vital signs: Vital Signs Temperature 98.4 F 07/07/25 11:08 Pulse Rate 70 07/07/25 11:08 Respiratory Rate 16 07/07/25 11:08 Blood Pressure 104/71 07/07/25 12:03 Pulse Oximetry 96 07/07/25 12:03 Oxygen Delivery Me thod Room Air 07/07/25 11:36 MDM - General Adult Medical Decision Making Medical decision making Social determinants: Patient has difficult time managing the his own medical illnesses. Multiple medical illnesses I reviewed the patient's medical record. I reviewed the patient's current home meds. Alternate historians: None Differential diagnosis: Respiratory irritant exposure, asthma Lab Review: Labs reviewed white count 14 6 neutrophil count 10.9 pH is 7.6 with a pCO2 of 23 and a PaO2 of 93.2 carboxyhemoglobin not elevated. Sodium 128 but improving from previous. Potassium 2.9 also improving from when seen yesterday. Total bilirubin 1.3 which is also an improvement. Imaging: None Assessment of risk Level of risk: Low Hospitalization considerations: No indication for hospitalization Reexamination: Improved Assessment and plan: Patient is lung auscultate normal he is concerned about possible toxic effects from exposure to propane gas discussed with the patient that treatment is removal from exposure he was hyperventilating when he first arrived he has no signs of elevated carboxyhemoglobin of the lactic there is any car monoxide involved he is otherwise unremarkable. Discharge patient home and follow-up with his primary care doctor. Lab Data 07/07/25 11:51 07/07/25 11:51 Laboratory Results WBC 14.46 10^3/uL (3.29-11.43) H 07/07/25 11:51 RBC 4.07 10^6/uL (3.85-5.65) 07/07/25 11:51 Hgb 13.30 g/dL (11.27-16.99) 07/07/25 11:51 Hct 36.3 % (37-53) L 07/07/25 11:51 MCV 89.2 fl (82-101) 07/07/25 11:51 MCH 32.7 pg (27-33) 07/07/25 11:51 MCHC 36.6 g/dL (30-55) 07/07/25 11:51 RDW 11.7 % (12.1-15.1) L 07/07/25 11:51 Plt Count 351 10^3/cmm (157-399) 07/07/25 11:51 MPV 8.5 fL (7.4-10.4) 07/07/25 11:51 Neut % (Auto) 72.5 % 07/07/25 11:51 Lymph % (Auto) 19.2 % 07/07/25 11:51 Schley % (Auto) 6.1 % 07/07/25 11:51 Eos % (Auto) 1.1 % 07/07/25 11:51 Baso % (Auto) 0.3 % 07/07/25 11:51 Neut # (Auto) 10.49 10^3/uL (1.8-7.7) H 07/07/25 11:51 Lymph # (Auto) 2.8 10^3/uL (0.8-4.8) 07/07/25 11:51 Schley # (Auto) 0.9 10^3/uL (0.2-0.9) 07/07/25 11:51 Eos # (Auto) 0.2 10^3/uL (0.0-0.8) 07/07/25 11:51 Baso # (Auto) 0.0 10^3/uL (0.0-0.1) 07/07/25 11:51 Nucleated RBC % (auto) 0 % 07/07/25 11:51 Nucleated RBCs # 0.0 /100WBC 07/07/25 11:51 Specimen Type Arterial 07/07/25 11:33 Sample Site Radial, right 07/07/25 11:33 ABG pH 7.60 (7.35-7.45) H* 07/07/25 11:33 ABG pCO2 23.1 mmHg (35-45) L 07/07/25 11:33 ABG pO2 93.2 mmHg (80.0-100.0) 07/07/25 11:33 ABG PO2/FiO2 Ratio 443 07/07/25 11:33 ABG HCO3 22.5 mmol/L (22-26) 07/07/25 11:33 ABG O2 Saturation 98.7 07/07/25 11:33 ABG Base Excess 2.4 mmol/L (-2.0-2.0) H 07/07/25 11:33 Madi Test Pos 07/07/25 11:33 A-a O2 Gradient 3.3 mmHg (5-10) L 07/07/25 11:33 Hematocrit 40.7 % (42-52) L 07/07/25 11:33 Hgb O2 Saturation 95.6 % (95-100) 07/07/25 11:33 Carboxyhemoglobin 2.1 %THgb (0.4-20.1) 07/07/25 11:33 Methemoglobin 1.0 % (0.4-1.5) 07/07/25 11:33 Total Hemoglobin 13.3 g/dL (14-18) L 07/07/25 11:33 Sodium 131.0 mmol/L (131-143) 07/07/25 11:33 Potassium 3.6 mmol/L (3.5-5.0) 07/07/25 11:33 Glucose 102.0 mg/dL (70-115) 07/07/25 11:33 Ionized Calcium 1.1 mmol/L (1.1-1.4) 07/07/25 11:33 O2 Delivery Device Room air 07/07/25 11:33 FiO2 21.0 % 07/07/25 11:33 Senior Firmware Engineer ID Amh 07/07/25 11:33 Sodium 128 mmol/L (136-145) L 07/07/25 11:51 Potassium 2.9 mmol/L (3.5-5.1) L 07/07/25 11:51 Chloride 93 mmol/L (98-107) L 07/07/25 11:51 Carbon Dioxide 21 mmol/L (22-29) L 07/07/25 11:51 Anion Gap 16.9 (5-19) 07/07/25 11:51 BUN 17 mg/dL (6-20) 07/07/25 11:51 Creatinine 0.6 mg/dL (0.7-1.2) L 07/07/25 11:51 GFR Calculation 140.9 mL/min (90-130) H 07/07/25 11:51 Glucose 104 mg/dL (65-115) 07/07/25 11:51 Calculated Osmolality 268 mOsm/kg (285-295) L 07/07/25 11:51 Calcium 8.9 mg/dL (8.5-10.5) 07/07/25 11:51 Total Bilirubin 1.3 mg/dL (0.15-1.2) H 07/07/25 11:51 AST 17 U/L (0-40) 07/07/25 11:51 ALT 10 U/L (0-41) 07/07/25 11:51 Alkaline Phosphatase 87 U/L (40-130) 07/07/25 11:51 Total Protein 6.9 g/dL (6.6-8.7) 07/07/25 11:51 Albumin 4.2 g/dL (3.5-5.2) 07/07/25 11:51 Globulin 2.7 g/dL (1.3-4.6) 07/07/25 11:51 No radiology studies performed this visit Discharge Plan Discharge Patient Disposition: Home Clinical Impression: Toxic effect of hydrocarbon gas, Hypokalemia Condition: Stable Prescriptions: No Action nitroglycerin 0.4 mg tablet, sublingual 0.4 mg sublingual Q5M PRN (Reason: chest pain) 30 Days Qty: 30 3RF quetiapine [Seroquel] 50 mg tablet 50 mg PO BEDTIME Qty: 30 2RF mirtazapine 15 mg tablet 15 mg PO .HS Qty: 30 2RF buspirone 30 mg tablet 30 mg PO BID Qty: 60 2RF clonazepam [Klonopin] 0.5 mg tablet 0.5 mg PO TID Qty: 90 1RF aspirin 81 mg tablet,delayed release (DR/EC) 81 mg PO QAM Qty: 90 1RF clopidogrel 75 mg tablet 75 mg PO DAILY Qty: 90 1RF tamsulosin 0.4 mg capsule 0.4 mg PO QAM Qty: 90 0RF zonisamide 100 mg capsule 100 mg PO DAILY Qty: 120 0RF hydrocodone-acetaminophen 7.5-325 mg tablet 1 tab PO Q4H PRN (Reason: pain) 7 Days Qty: 42 0RF potassium chloride 20 mEq tablet extended release 20 meq PO DAILY isosorbide mononitrate 30 mg tablet extended release 24 hr 30 mg PO DAILY Rx Instructions: TAKE 1 TABLET BY MOUTH DAILY nicotine 21 mg/24 hr patch 24 hour 21 mg topical DAILY ranolazine 500 mg tablet extended release 12 hr 500 mg PO BID Rx Instructions: TAKE 1 TABLET BY MOUTH TWICE DAILY hydrocodone-acetaminophen 5-325 mg tablet 1 - 2 tab PO .Q4-6H Qty: 40 0RF Daytime and Nighttime Cold 2-5-10-325 mg Tablets, Sequential 2 ea PO Q6H ondansetron 4 mg tablet,disintegrating 4 mg PO Q6H PRN (Reason: nausea and vomiting) Qty: 14 0RF atorvastatin 80 mg tablet 80 mg PO QAM Discharge Orders: Discharge ED (Routine); Ordered 07/07/25 Ordered By: Torito Mendosa Referrals: Wang Bethea DO [Primary Care Provider, Family Practice] Discharge Diet: Usual diet Discharge Activity: Increase activity as tolerated Patient Instructions: Opioid Safety, Pain Management, Patient Portal & Brisa Instructions Activity Restrictions/Additional Instructions: Thank you for choosing [facility] for your healthcare needs today. It is very important that you follow up as instructed or that you return to the Emergency Department should you have concerns or if your condition changes or worsens in any way. Emergency department visits are focused on emergent conditions, in some cases you may require further evaluation on an outpatient basis. You were seen in the emergency room after exposure to propane gas. You blood gases were normal your carboxyhemoglobin level is not elevated. The only treatment for exposure to a hydrocarbon gas is removal from the source. You may continue to have some headaches as a result of the exposure. You should not return to your home until you are cleared by the gas company. No other interventions are needed. We did note while you are in the emergency room today your potassium is low continue your regular prescribed potassium supplements you were given an extra dose today in the emergency room this should be rechecked by your primary care doctor within the next week. (Please note that included in your discharge packet is information concerning opioid safety and pain management. This information is given to all patients were discharged from the ER regardless of their discharge diagnosis or the medicines they usually take or are prescribed.) Print Language: Fijian Coding Level of Care Code ED Galvanizer Zinc for Go [place]
[2025-07-07 11:36] VITALS: BP 104/71; O2SAT 96
[2025-07-07 11:45] LABS: ABG PCO2 23.1 mmHg (35-45); Alveolar-Arterial Oxygen Gradi 3.3 mmHg (5-10); Arterial Blood Gas Hematocrit 40.7 % (42-52); Blood Gas Allen Test Pos; Blood Gas Operator Identificat AMH; Blood Gas Sample Site Radial, right; Blood Gas Sample Type Arterial; Carboxyhemoglobin 2.1 %THgb (0.4-20.1); Glucose Level-ABG 102.0 mg/dL (70-115); HCO3 ABG 22.5 mmol/L (22-26); Ionized Calcium Level - ABG 1.1 mmol/L (1.1-1.4); Methemoglobin 1.0 % (0.4-1.5); Oxygen Saturation ABG 98.7; PO2 ABG 93.2 mmHg (80.0-100.0); PO2 FiO2 Ratio Arterial Blood 443; Potassium Level - ABG 3.6 mmol/L (3.5-5.0); Sodium Level - ABG 131.0 mmol/L (131-143)
[2025-07-07 12:03] VITALS: BP 104/71; O2SAT 96
[2025-07-07 12:03] LABS: Hematocrit 36.3 % (37-53); Hemoglobin 13.30 g/dL (11.27-16.99); Mean Corpuscular HGB Conc 36.6 g/dL (30-55); Mean Corpuscular Hemoglobin 32.7 pg (27-33); Mean Corpuscular Volume 89.2 fl (82-101); Nucleated Red Blood Cells % 0 %; Platelet Count 351 10^3/cmm (157-399); Red Blood Count 4.07 10^6/uL (3.85-5.65); White Blood Count 14.46 10^3/uL (3.29-11.43)
[2025-07-07 12:31] LABS: Alanine Aminotransferase 10 U/L (0-41); Albumin Level 4.2 g/dL (3.5-5.2); Alkaline Phosphatase 87 U/L (40-130); Anion Gap 16.9 (5-19); Aspartate Amino Transferase 17 U/L (0-40); Blood Urea Nitrogen 17 mg/dL (6-20); Calcium 8.9 mg/dL (8.5-10.5); Carbon Dioxide 21 mmol/L (22-29); Chloride 93 mmol/L (98-107); Globulin 2.7 g/dL (1.3-4.6); Glucose 104 mg/dL (65-115); Osmolality Calculated 268 mOsm/kg (285-295); Sodium 128 mmol/L (136-145); Total Protein 6.9 g/dL (6.6-8.7)
[2025-07-07 12:33] LABS: Potassium 2.9 mmol/L (3.5-5.1)
[2025-07-07] MEDS: potassium chloride oral liq 20 mEq/15 mL UDC 40 MEQ PO (12:44)
[2025-07-07 12:45] LABS: ABG PH Result 7.60 (7.35-7.45)
== END 2025-07-07 12:57 | disposition home or self-care (01) ==
PROVIDERS: Emergency Medicine; Emergency Provider Family Medicine; PCP Family Medicine
DX: T59.891A Toxic effect of other specified gases, fumes and vapors, accidental (unintentional), initial encounter (principal); E87.6 Hypokalemia; Z79.82 Long term (current) use of aspirin; Z79.02 Long term (current) use of antithrombotics/antiplatelets; X58.XXXA Exposure to other specified factors, initial encounter; I25.10 Atherosclerotic heart disease of native coronary artery without angina pectoris; E78.2 Mixed hyperlipidemia; J44.9 Chronic obstructive pulmonary disease, unspecified; I11.0 Hypertensive heart disease with heart failure; I50.20 Unspecified systolic (congestive) heart failure
CPT/HCPCS: 36415; 36600; 80051; 80053; 82330; 82805; 85025; 99283; J9999

== ENCOUNTER → 2025-07-09 07:54 | Outpatient (BNVA) | payer MEDICAID, SELFPAY | PROVIDERS: PCP Family Medicine; Visit Provider Orthopaedic Surgery | DX: Z98.890 Other specified postprocedural states (principal) | CPT/HCPCS: 99024 ==

== ENCOUNTER 2025-07-15 03:29 | Emergency (ER) | payer MEDICAID, SELFPAY ==
--- OUTSIDE RECORDS SUMMARY | 2024-05-24 03:00 | XMS_ITS ---
Author Organization [facility] Address [address] [place] [address] Care Team Providers Care Autos Disassembler Name Role Phone Jarrell Hernandez Primary Care Provider Unavailabl e Migration, Provider Unavailable Unavailable REASON FOR VISIT EMR-Darrin Encounters Encounter Location Date Provider Diagnosis Migrated_Facility 0 0 05/24/2024 Provider Migration Plan Of Treatment No Information Progress Notes * ERIBERTOABRAMJosue MAYNARDDOB:07/1970 (54 yo M)Acc No.[id number]:05/24/2024 Patient: Josue GLASER :1970 A ge:53 Y S ex:Male Address:[address] [place] [address] , [place], [address] Subjective: * Chief Complaints: * E MR-Darrin * * Date:
--- OUTSIDE RECORDS SUMMARY | 2024-05-25 03:00 | XMS_ITS ---
Author Organization [facility] Address [address] [place] [address] Care Team Providers Care Final Installer Inspector Name Role Phone Jarrell Hernandez Primary Care Provider Unavailabl e Migration, Provider Unavailable Unavailable REASON FOR VISIT EMR-Darrin Medications Medication SIG (Take, Route, Frequency, Duration) Notes Start Date End Date Status Nitrostat *Pick strength-f orm from Medispan for eRX* Active Buspirone *Reorder from Medispan for eRx and Interaction Alerts* Active clonazePAM *Pick strength-f orm from Medispan for eRX* Active Meloxicam *Pick strength-f orm from Medispan for eRX* Active Flomax *Pick strength-f orm from Medispan for eRX* Active CeleXA *Pick strength-f orm from Medispan for eRX* Active SEROquel *Pick strength-f orm from Medispan for eRX* Active Isosorbide Mononitrate *Pick strength-form from Medispan for eRX* Active Zonegran *Pick strength-f orm from Medispan for eRX* Active Potassium Chloride *Pick strengt h-form from Medispan for eRX* Active clopidogrel bisulfate (bulk) *Reorder from Medispan for eRx and Interaction Alerts* Active Nicotine *Pick strength-f orm from Medispan for eRX* Active Creon *Pick strength-f orm from Medispan for eRX* Active Aspirin *Pick strength-f orm from Medispan for eRX* Active Protonix *Pick strength-f orm from Medispan for eRX* Active Social History Social History Additional Details Category Social Info Options Details Migrated Social History Migrated Social History Alcoholic beverages? - No, Applying for disability? - No, Currently on disability? - Yes, Drug or substance abuse? - No, exposure to toxins/poisonous substances at work - No, I am interested in quitting. - No, Marital Status - single, Nonprescription drug use? - Yes : marijuana, Participation in detoxification or rehabilitation - No, Smoked in the past? - No, Smoking - 1/2 PPD, Smoking status (MU) - <BLANK>, Working currently? - No Encounters Encounter Location Date Provider Diagnosis Migrated_Facility 0 0 05/25/2024 Provider Migration Plan Of Treatment No Information Progress Notes * Josue RENTERIADOB:07/1970 (54 yo M)Acc No.[id number]:05/25/2024 Patient: Josue GLASER :1970 A ge:53 Y S ex:Male Address:[address] [place] [address] Subjective: * Chief Complaints: * E MR-Darrin * Surgical History: ACL Surgery Appendectomy Gallbladder removal Heart stents Neck surgery right knee replacement Torsion of testicle * Family History: M igrated Family History: : Cancer, c hronic pain, D iabetes, p sychiatric problems, R heumatoid arthritis. * Social History: M igrated Social History: M igrated Social History: Alcoholic beverages? - No, A pplying for disability? - No, C urrently on disability? - Yes, D rug or substance abuse? - No, e xposure to toxins/poisonous substances at work - No, I am interested in quitting. - No, M arital Status - single, N onprescription drug use? - Yes : marijuana, P articipation in detoxification or rehabilitation - No, Smoked in the past? - No, S moking - 1/2 PPD, S moking status (MU) - <BLANK>, W orking currently? - No. * Medications: T akingZonegran , Notes to Pharmacist: *Pick strength-form from Medispan for eRX*Nitrostat , Notes to Pharmacist: *Pick strength-form from Medispan for eRX*Meloxicam , Notes to Pharmacist: *Pick strength-form from Medispan for eRX*Creon , Notes to Pharmacist: *Pick strength-form from Medispan for eRX*Buspirone , Notes to Pharmacist: *Reorder from Medispan for eRx and Interaction Alerts*Aspirin , Notes to Pharmacist: *Pick strength-form from Medispan for eRX*CeleXA , Notes to Pharmacist: *Pick strength-form from Medispan for eRX*Flomax , Notes to Pharmacist: *Pick strength-form from Medispan for eRX*Potassium Chloride , Notes to Pharmacist: *Pick strength-form from Medispan for eRX*Isosorbide Mononitrate , Notes to Pharmacist: *Pick strength-form from Medispan for eRX*clopidogrel bisulfate (bulk) , Notes to Pharmacist: *Reorder from Medispan for eRx and Interaction Alerts*SEROquel , Notes to Pharmacist: *Pick strength-form from Medispan for eRX*Protonix , Notes to Pharmacist: *Pick strength-form from Medispan for eRX*Nicotine , Notes to Pharmacist: *Pick strength-form from Medispan for eRX*clonazePAM , Notes to Pharmacist: *Pick strength-form from Medispan for eRX*Taking Zonegran , Notes to Pharmacist: *Pick strength-form from Medispan for eRX*Taking Nitrostat , Notes to Pharmacist: *Pick strength-form from Medispan for eRX*Taking Meloxicam , Notes to Pharmacist: *Pick strength-form from Medispan for eRX*Taking Creon , Notes to Pharmacist: *Pick strength-form from Medispan for eRX*Taking Buspirone , Notes to Pharmacist: *Reorder from Medispan for eRx and Interaction Alerts*Taking Aspirin , Notes to Pharmacist: *Pick strength-form from Medispan for eRX*Taking CeleXA , Notes to Pharmacist: *Pick strength-form from Medispan for eRX*Taking Flomax , Notes to Pharmacist: *Pick strength-form from Medispan for eRX*Taking Potassium Chloride , Notes to Pharmacist: *Pick strength-form from Medispan for eRX*Taking Isosorbide Mononitrate , Notes to Pharmacist: *Pick strength-form from Medispan for eRX*Taking clopidogrel bisulfate (bulk) , Notes to Pharmacist: *Reorder from Medispan for eRx and Interaction Alerts*Taking SEROquel , Notes to Pharmacist: *Pick strength-form from Medispan for eRX*Taking Protonix , Notes to Pharmacist: *Pick strength-form from Medispan for eRX*Taking Nicotine , Notes to Pharmacist: *Pick strength-form from Medispan for eRX*Taking clonazePAM , Notes to Pharmacist: *Pick strength-form from Medispan for eRX* * * Date:
[2025-07-15] VITALS (8 sets, daily range): BP systolic 89–120; BP diastolic 53–83; PULSE 67–75; RESP 16–18; TEMP 36.7; O2SAT 94–100; BMI 25.8
--- OUTSIDE RECORDS SUMMARY | 2025-07-15 03:34 | XMS_ITS | Patient Health Record ---
Author Organization [facility] Address [address] [place] [address] Care Team Providers Care Engineering Technical Analyst Name Role Phone Jarrell Hernandez Primary Care Provider Unavailabl e Reason For Referral No Information Medications Medication [...] (MU) - <BLANK>, Working currently? - No Plan Of Treatment No Information Medical (General) History Surgical History Surgery Date(Month/Year) ACL Surgery Appendectomy Gallbladder removal Heart stents Neck surgery right knee replacement Torsion of testicle
--- OUTSIDE RECORDS SUMMARY | 2025-07-15 03:34 | XMS_ITS | Encounter Summary ---
Author Organization [facility] Address [address] [place] [address] Care Team Providers Care Cooker Casing Name Role Phone Unavailable Primary Care Provider Unavailabl e Reason for Referral * Outpatient Services (Routine) - Closed Specialty Diagnoses / Procedures Referred By Contac t Referred To Contact Diagnoses Cervical spondylosis without myelopathy Procedures XR FLUORO NEEDLE GUIDANCE Theodore Garrido MD Phone: tel: fax: Referral ID Status Reason Start Date Expiration Date Visits Re quested Visits Authorized [id number] Closed 11/04/2014 12/05/2015 1 1 Encounter Details Date Type Department Care Team (Late st Contact Info) Description 11/04/2014 Ancillary Orders [facility] Pain Management Procedures [place] [address] [place] [id number] [place] [id number] [facility] [address] [place] [address] Cervical spondylosis without myelopathy (Primary Dx) Social History Tobacco Use Types Packs/Day Years Used Date Smoking Tobacco: Every Day E-Cigarette/M ist Inhalation Device Smokeless Tobacco: Never Alcohol Use Standard Drinks/Week Comments No 0 (1 standard drink = 0.6 oz pur e alcohol) Sex and Gender Information Value Date Recorded Sex Assigned at Not on file Legal Sex Male 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 Exam was auto-finalized. Theodore Garrido MD DIAGNOSTIC IMAGING ORDERABLES Final Result documented in this encounter Visit Diagnoses Diagnosis Cervical spondylosis without myelopathy- Primary Cervical spondylosis without myelopathy documented in this encounter
--- OUTSIDE RECORDS SUMMARY | 2025-07-15 03:34 | XMS_ITS | Clinical Summary ---
Author Organization [facility] Address [address] [facility] Attn: Epic Prelude ADT DAQUAN GARDUNO [address] Care Team Providers Care Dude Ranch Manager Name Role Phone Davy Blanton MD Primary Care Provider [phone] Allergies Active Allergy Reactions Criticality Noted Date Comments Alpha-Gal (Eaxldakmy-Xgzqt-8,3-Galactose) Nausea and Vomiting Low 09/12/2024 Gabapentin Seizure [...] 11 1 Active naloxone (NARCAN) 4 mg/spray [place], Non-Aerosol EMERGENCY USE ONLY: Administer 1 spray [...] for Nausea/Emesis. 30 Tablet 5 3 Active budesonide (PULMICORT RESPULE) 0.5 mg/2 [...] lower urinary tract symptoms 04/18/2021 Atherosclerosis of [place] co ronary artery of [place] heart with stable angina pectoris 02/05/2015 Cervical spondylosis with radiculopathy 02/06/20 15 History of MS (myocardial infarction) 02/05/2015 Stented coronary artery 02/05/2015 Resolved Problems Problem Noted Date Diagnosed Date Resolved Date Hypokalemia 11/14/2021 11/28/2021 Acute diarrhea 11/14/2021 11/28/2021 Acute pancreatitis 11/14/2021 Hyponatremia 03/05/2021 11/28/2021 Encounters Date Type Department Care Team Description 06/30/2025 External Device Data STL ABSTRACTION Provider, Abstract 06/03/2025 External Device Data STL ABSTRACTION Provider, Abstract 05/20/2025 External Device Data STL ABSTRACTION Provider, Abstract 05/05/2025 External Device Data STL ABSTRACTION Provider, Abstract [...] on file Legal 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 Gender Identity Not on file Sexual Orientation Not on file Last Filed Vital Signs Vital Sign Reading Time Taken Comments Blood Pressure 117/66 03/12/2025 12:57 PM CDT Pulse 46 03/12/2025 12:57 PM CDT Temperature 36.9 C (98.4 F) 08/28/2024 9:48 PM EMBALMER ASSISTANT Respiratory Rate 16 08/29/2024 1:00 AM EMBALMER ASSISTANT Oxygen Saturation 97% 08/29/2024 1:00 AM EMBALMER ASSISTANT Inhaled Oxygen Concentration - - Weight 74.2 kg (163 lb 9.6 oz) 03/12/2025 12:57 PM CDT Height 167.6 cm (5' 6 ) 03/12/2025 12:57 PM CDT Body Mass Index 26.41 03/12/2025 12:57 PM CDT Plan of Treatment Upcoming Encounters Date Type Department Care Team (Late st Contact Info) Description 03/11/2026 1:00 PM CDT Office Visit [facility] [place] [address] [place] [address] Mikaela Vines NP [address] [place] [address] Health Maintenance Due Date Last [...] (#1) 2025 3, 05/03/2021, 10/15/2018 COVID-19 Vaccine ( season) 2025 07/15/2021, 09/24/2020, 08/27/2020 COLORECTAL SCREENING 04/04/2034 04/04/2024, 04/04/2024, 10/01/2020 Colorectal Cancer Screening 04/04/2034 Abdominal Aortic Aneurysm (A AA) Screening Completed 11/20/2021 Medical Devices Implanted Type Area Weaving Supervisor Device Identifier Shelf Expiration Date Model / Serial / Lot Plate Aviator 2lvl 30mm [id number] - Saviatorld#20 [id number] Implanted:Qty : 1 on 02/05/2015 by Wade Paniagua MD Plate N/A: Spine Cervical Anterior LESLIE- SPINE [id number] / AVIATORLD#2 [id number] 68 / AVSLD#[id number] Putty Bio Dbm 1ml 49220 - [id number] Implanted:Qty : 1 on 02/05/2015 by Wade Paniagua MD Putty N/A: Spine Cervical Anterior LESLIE- SPINE 05/13/2015 40561 / [id number] / [id number] Putty Bio Dbm 2ml 93813 - [id number] Implanted:Qty : 1 on 02/05/2015 by Wade Paniagua MD Putty N/A: Spine Cervical Anterior LESLIE- SPINE 04/14/2015 22966 / [id number] / [id number] Screw Avtr Va Sd 4.0x14mm [id number] - Saviatorld#20 [id number] Implanted:Qty : 4 on 02/05/2015 by Wade Paniagua MD Screw N/A: Spine Cervical Anterior LESLIE- SPINE [id number] / AVIATORLD#2 [id number] / AVSLD#[id number] Screw Avtr Va Sd 4.0x16mm [id number] - Saviatorld#20 [id number] Implanted:Qty : 2 on 02/05/2015 by Wade Paniagua MD Screw N/A: Spine Cervical Anterior LESLIE- SPINE [id number] / AVIATORLD#2 [id number] / AVSLD#[id number] Spacer Avs As 14x16 7mm 4d [id number] - Saviatorld#20 [id number] Implanted:Qty : 2 on 02/05/2015 by Wade Paniagua MD Spacer N/A: Spine Cervical Anterior LESLIE- SPINE [id number] / AVIATORLD#2 [id number] / AVSLD#10870 [id number] Stent Implanted:Qty : 4 Stent N/A: Heart Explanted Type Area Weaving Supervisor Device Identifier Shelf Expiration Date Model / Serial / Lot Screw Avtr Va Sd 4.0x14mm [id number] - [facility] [id number] Implanted:Wade Adam MD (Quantity not on file) Explanted:Qty : 1 on 02/05/2015 by Wade Paniagua MD Screw N/A: Spine Cervical Anterior LESLIE- SPINE [id number] / AVIATORLD#2 [id number] 68 / AVSLD#[id number] Procedures Procedure Name Priority Date/Time Associated Diagnosis Comments COLONOSCOPY REPORT 04/04/2024 7 :[address] LUNG SCREENING (LDCT BASELINE [...] Salmeron MD - 04/04/2024 7:53 AM CDT [facility] Patient Name: Josue Cheng Procedure Date: [...] 7:38:54 AM Scope Out: 7:49:45 AM [address] [place] Hemanth Salmeron MD GI PROCEDURE ORDERABLES [...] suspected bowel obstruction. Chronic findings as described. [id number] Narrative 11/20/2021 9:00 PM CDT Exam: CT [...] suspected bowel obstruction. Chronic findings as described. [id number] ORDERABLES Final R esult * HEMOGLOBIN A1C (05/03/2021 11:50 AM CDT) HEMOGLOBIN A1C 5.1 <5.7 % of total Hgb [facility] Comment: For the purpose of screening for the presence of diabetes: <5.7% Consistent with the absence of diabetes 5.7-6.4% Consistent with increased risk for diabetes (prediabetes) > or =6.5% Consistent with diabetes This assay result is consistent with a decreased risk of diabetes. Currently, no consensus exists regarding use of hemoglobin A1c for diagnosis of diabetes in children. According to [place] Diabetes Association (ADA) guidelines, hemoglobin A1c <7.0% represents optimal control in non- diabetic patients. Different metrics may apply to specific patient populations. Standards of Medical Care in Diabetes(ADA). Test Performed at: [facility] [address] [place] [address] Gee Hansen D.O., MPH Blood 05/03/2021 11:5 0 AM CDT 05/04/2021 4:28 AM CDT Davy Blanton MD CHEMISTRY ORDERABLES Lyly mcmillan Result [facility] [address] [place] [address] from Last 3 Months or Most Recently Relevant to Health Maintenance Insurance MEDICAID [place] Advance Directives For more information, please contact: [phone] * Full Code (Latest Code Status on File) Date Activated Date Inactivated Comments 04/04/2024 6:58 AM 04/04/2024 10:27 AM * Full Code Date Activated Date Inactivated Comments 11/14/2021 8:51 PM 11/15/2021 1:41 PM * Full Code Date Activated Date Inactivated Comments 03/05/2021 12:43 AM 03/07/2021 5:22 PM Care Teams Dude Ranch Manager Relationship Specialty Start Date End Date Davy Blanton MD [address] [facility] [address] [place] [id number] PCP - General Family Practice 04/18/21
--- OUTSIDE RECORDS SUMMARY | 2025-07-15 03:34 | XMS_ITS | Clinical Summary ---
Author Organization [facility] Address [address] [place] [address] Phone Care Team Providers Care Social Science Instructor Name Role Phone Unavailable Primary Care Provider [...] 02/06/20 15 CAD (coronary atherosclerotic disease) 5 [place], old 02/05/2015 Stented coronary artery 02/05/2015 Social History Tobacco Use Types Packs/Day Years Used Date Smoking Tobacco: Every Day E-Cigarette/M ist Inhalation Device Smokeless Tobacco: Never Alcohol Use Standard Drinks/Week Comments No 0 (1 standard drink = 0.6 oz pur e alcohol) Sex and Gender Information Value Date Recorded Sex Assigned at Not on file Legal Sex 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 Gender Identity Not on file Sexual Orientation [...] 2025 10/15/2018 Medical Devices Implanted Type Area Chief Innovation Officer Device Identifier Shelf Expiration Date Model / Serial / Lot Plate Aviator 2lvl 30mm [id number] - Saviatorld#2015 [id number] Implanted:Qty: 1 on 02/05/2015 by Wade Paniagua MD at [facility] Plate N/A: Spine Cervical Anterior LESLIE- SPINE [id number] / AVIATORLD#2 [id number] 68 / AVSLD#[id number] Putty Bio Dbm 2ml 31370 - [id number] Implanted:Qty: 1 on 02/05/2015 by Wade Paniagua MD at [facility] Putty N/A: Spine Cervical Anterior LESLIE- SPINE 04/14/2015 07117 / [id number] / [id number] Putty Bio Dbm 1ml 68260 - [id number] Implanted:Qty: 1 on 02/05/2015 by Wade Paniagua MD at [facility] Putty N/A: Spine Cervical Anterior LESLIE- SPINE 05/13/2015 84096 / [id number] / [id number] Screw Avtr Va Sd 4.0x14mm [id number] - Saviatorld#2014 [id number] Implanted:Qty: 4 on 02/05/2015 by Wade Paniagua MD at [facility] Screw N/A: Spine Cervical Anterior LESLIE- SPINE [id number] / AVIATORLD#2 [id number] 68 / AVSLD#21682 [id number] Screw Avtr Va Sd 4.0x16mm [id number] - Saviatorld#2014 [id number] Implanted:Qty: 2 on 02/05/2015 by Wade Paniagua MD at [facility] Screw N/A: Spine Cervical Anterior LESLIE- SPINE [id number] / AVIATORLD#2 [id number] 68 / AVSLD#08064 [id number] Spacer Avs As 14x16 7mm 4d [id number] - Saviatorld#2014 [id number] Implanted:Qty: 2 on 02/05/2015 by Wade Paniagua MD at [facility] Spacer N/A: Spine Cervical Anterior LESLIE- SPINE [id number] / AVIATORLD#2 [id number] 68 / AVSLD#84128 [id number] Explanted Type Area Chief Innovation Officer Device Identifier Shelf Expiration Date Model / Serial / Lot Screw Avtr Va Sd 4.0x14mm [id number] - Saviatorld#2014 [id number] Implanted:Wade Paniagua MD (Quantity not on file) Explanted:Qty: 1 on 02/05/2015 by Wade Paniagua MD at [facility] Screw N/A: Spine Cervical Anterior LESLIE- SPINE [id number] / AVIATORLD#2 [id number] 68 / AVSLD#[id number] Insurance [place]ICAID [place] MEDICAID [place] Advance Directives For more information, please contact: [phone] * Full Code (Latest Code Status on File) Date Activated Date Inactivated Comments 02/05/2015 6:22 AM 02/07/2015 1:44 PM
--- NOTE | 2025-07-15 04:03 | CTR_ITS ---
PROCEDURE INFORMATION: Exam: CT Abdomen And Pelvis With Contrast Exam date and time: 07/15/2025 5:21 AM Age: 54 years old Clinical indication: Abdominal pain; Additional info: Diffuse upper abd pain worsening, nv TECHNIQUE: Imaging protocol: Computed tomography of the abdomen and pelvis with contrast. Radiation optimization: All CT scans at this facility use at least one of these dose optimization techniques: automated exposure control; mA and/or kV adjustment per patient size (includes targeted exams where dose is matched to clinical indication); or iterative reconstruction. Contrast material: OMNI 350; Contrast volume: 100 ml; Contrast route: INTRAVENOUS (IV); COMPARISON: 1. CT abdomen pelvis w con* [id number] 04/20/2025 8:[address] abdomen pelvis w con* [id number] 07/06/2025 8:30 AM RADIATION DOSE METRICS: Total DLP (mGy-cm): 504.73 FINDINGS: Diaphragm: Small sliding-type hiatal hernia. Liver: Mild hepatic steatosis. Gallbladder and biliary ducts: Status post cholecystectomy. Pancreas: Normal. No ductal dilation. Spleen: Normal. No splenomegaly. Adrenal glands: Normal. No mass. Kidneys and ureters: Stable bilateral renal cysts. Stomach and bowel: Sigmoid diverticulosis without evidence of acute diverticulitis. No evidence of bowel obstruction. The stomach is underdistended, limiting evaluation. No evidence of bowel obstruction. Several nondilated fluid-filled small bowel loops are again seen. Appendix: Status post appendectomy. Intraperitoneal space: Unremarkable. No free air. No significant fluid collection. Vasculature: Mild atherosclerotic aortoiliac calcifications. No abdominal aortic aneurysm. Lymph nodes: Unremarkable. No enlarged lymph nodes. Urinary bladder: Diffuse bladder wall thickening. Reproductive: Unremarkable as visualized. Bones/joints: Posterior instrumented fusion again seen at L5-S1. L5 laminectomy. Screw removal tracts are again seen at L4. Soft tissues: No significant interval change in several small fluid collections along the posterior paraspinal soft tissues. These include collections of the left L3-L4 laminectomy space and in the subcutaneous soft tissues at L3-L4. CT/CT abdomen pelvis w con* [id number] IMPRESSION: 1. Persistent mild fluid distension of small bowel loops which may represent enteritis. 2. Stable fluid collections in the posterior paraspinal musculature at L3-L4. 3. Diffuse bladder wall thickening is likely exaggerated by underdistention. Cystitis not excluded. 4. Sigmoid diverticulosis without diverticulitis. 5. Remainder stable.
--- NOTE | 2025-07-15 04:05 | ECG_ITS ---
[facility] Date: 2025-07[facility]15 Pat Name: Josue Cheng Department: Room: Gender: Male Line Ordering Clinician: : 1970 Requested By: Wu Easton Order Number: [id number] Archana MD: Placido Garza M.D. Measurements Intervals [place] Rate: 64 P: 76 GA: 173 QRS: 92 QRSD: 97 T: 70 QT: 418 QTc: 432 Interpretive Statements SINUS RHYTHM BORDERLINE RIGHT AXIS DEVIATION [QRS AXIS > 90] MINIMAL ST DEPRESSION [0.025+ mV ST DEPRESSION] Compared to ECG 07/06/2025 08:39:43 Ventricular premature complex(es) no longer present Prolonged QT interval no longer present ST (T wave) deviation still present Electronically Signed On 07-15-2025 21:39:36 ELECTRICAL CONTACTS ADJUSTER by Placido Garza M.D. [email or web address]
[2025-07-15 04:17] LABS: Glucose Urine UA Negative (Normal); Nitrate Urine Negative (Negative); Specific Gravity, Urine 1.019 (1.005-1.030)
[2025-07-15 04:22] LABS: Add Urine Microscopic? YES
--- NOTE | 2025-07-15 04:25 | W.ED.ABDPA2 ---
HPI - Abdominal Pain General: Chief Complaint: Abdominal Pain Stated Complaint: ABD Pain Time Seen by Provider: 07/15/25 03:37 History of Present Illness: Patient is a 54-year-old male with past medical history of chronic pain, multiple lumbar spinal fusions, CAD, hypertension, anxiety, HLD who presents with persistent, severe burning abdominal pain that has been ongoing for approximately one week. The pain is diffuse and described as a burning sensation throughout the abdomen, reports a decreased amount of p.o and has been struggling to take chicken broth over the past day. The pain is not relieved by eating or bowel movements, and the patient reports associated diaphoresis, waking up drenched in sweat and feeling cold. There is a history of chronic gastrointestinal issues including chronic pancreatitis and diverticulitis. Patient also has a history of spinal hardware placement and chronic pain, for which hydrocodone is used. Bowel movements are occurring, with last stool at noon today. No recent alcohol use. Patient reports persistent nausea, refractory to home antiemetics, and difficulty swallowing pills. Has not drink alcohol in the last 20 years. Related Data Home Medications ?Medication ?Instructions ?Recorded ?Confirmed atorvastatin 80 mg tablet 80 mg PO QAM 09/16/24 07/09/25 potassium chloride 20 mEq 20 meq PO DAILY 04/21/25 07/09/25 tablet,extended release isosorbide mononitrate 30 mg 30 mg PO DAILY 06/23/25 07/09/25 tablet,extended release 24 hr nicotine 21 mg/24 hr daily 21 mg topical DAILY 06/23/25 07/09/25 transdermal patch ranolazine 500 mg tablet,extended 500 mg PO BID 06/23/25 07/09/25 release,12 hr uvhoqdhcy-ioyywpifh-GV-acetaminophen 2 ea PO Q6H 07/06/25 07/09/25 2 mg-5 mg-10 mg-325mg d/n tablets Previous Rx's ?Medication ?Instructions ?Recorded nitroglycerin 0.4 mg sublingual 0.4 mg sublingual Q5M PRN chest 02/06/24 tablet pain 30 days #30 tabs aspirin 81 mg tablet,delayed 81 mg PO QAM #90 tabs 03/13/25 release Held on 06/24/25. Instructions: Resume on 06/26/25. clopidogrel 75 mg tablet 75 mg PO DAILY #90 tabs 04/01/25 Held on 06/24/25. Instructions: Resume on 06/26/25. tamsulosin 0.4 mg capsule 0.4 mg PO QAM #90 caps 05/11/25 buspirone 30 mg tablet 30 mg PO BID #60 tabs 05/18/25 mirtazapine 15 mg tablet 15 mg PO .HS #30 tabs 05/18/25 quetiapine 50 mg tablet (Seroquel) 50 mg PO BEDTIME #30 tabs 05/18/25 clonazepam 0.5 mg tablet (Klonopin) 0.5 mg PO TID anxiety #90 tabs 06/02/25 zonisamide 100 mg capsule 100 mg PO DAILY #120 caps 06/11/25 hydrocodone 5 mg-acetaminophen 325 1 - 2 tab PO .Q4-6H #40 tabs 06/24/25 mg tablet ondansetron 4 mg disintegrating 4 mg PO Q6H PRN nausea and 07/06/25 tablet vomiting #14 tabs hydrocodone 7.5 mg-acetaminophen 1 tab PO Q4H PRN pain 7 days #42 07/14/25 325 mg tablet tabs metoclopramide HCl 10 mg tablet 10 mg PO Q6H 7 days #28 tabs 07/15/25 (Reglan) Allergies Allergy/AdvReac Type Severity Reaction Status Date / Time meperidine (From Demerol) Allergy Severe ALGY-Hives Verified 07/09/25 07:35 Alpha-Gal Allergy upset GI Verified 07/09/25 07:35 (Maekmjnxy-Tpaus-8,3-Gala (Aauinpgdr-Ptxhd-8,3-Galactose (Alph) gabapentin AdvReac Severe ADR-Seizure Verified 07/09/25 07:35 morphine AdvReac Severe ALGY-Hives Verified 07/09/25 07:35 tramadol AdvReac Severe ADR-Seizure Verified 07/09/25 07:35 Review of Systems General: Reports: 10 or more systems reviewed and unremarkable except in HPI and below PFSH ED PFSH: Medical History (Updated 07/15/25 @ 06:14 by Wu Easton DO) Tinnitus Psychiatric care History of cardiovascular stress test 02/2024 Jejunitis hx in 07/2024 Chronic pancreatitis Panic attacks NSTEMI (non-ST elevated myocardial infarction) CAD (coronary artery disease) Cath 06/2024 30-40% stenosis in previously treated segment of RCA Colitis Direct inguinal hernia of right side COVID-19 (~04/2023) Moderate major depression Generalized anxiety disorder Alpha-gal syndrome Heart failure with mildly reduced ejection fraction (HFmrEF) Chronic abdominal pain Hyponatremia H. pylori duodenitis Elevated glucose Anxiety and depression Alpha galactosidase deficiency C. difficile colitis Medical marijuana use Diverticulosis seen in colonoscopy in 2023 GERD (gastroesophageal reflux disease) Urethral stricture COPD (chronic obstructive pulmonary disease) Essential (primary) hypertension Seizure disorder Mixed hyperlipidemia Osteoarthritis rt knee, cervical and Lumbar spine Surgical History History of cardiac catheterization 06/2024 - multiple prior PCIs, LM no sig stenosis, LAD minimal in-stent narrowing mid segment, LCx no severe lesions, Patent stented RCA with 30-40% jaqueline-stent stenosis. Recs: Medical therapy Status post lumbar spinal fusion L5/S1 & L4/L5 fusion, Dr Da Silva History of esophagogastroduodenoscopy (EGD) 2021. Showing esophagitis, gastritis, and duodenitis with + H.pylori biopsies History of back surgery Status post right knee replacement Hx of reconstruction of anterior cruciate ligament tear H/O neck surgery H/O left knee surgery History of appendectomy History of cholecystectomy H/O right knee surgery arthroscopic R lateral meniscetomy, chrondroplasty H/O chest tube placement H/O removal of testicle Stented coronary artery Family History Brother Parkinson disease Cancer Diabetes Stroke Bone cancer Family/Other Cancer Chronic kidney disease (CKD) Suicide Esophageal cancer Lung cancer Grandmother CAD (coronary artery disease) Cancer Lung disease Grandfather Dementia Mother Lung disease Father Suicide Other Colitis Denies family history of Clotting disorder Anesthesia complication Bleeding disorder Social History Smoking and tobacco/nicotine status: unknown if used tobacco/nicotine Quit status (tobacco/nicotine): has tried quititng Alcohol intake: never Substance/Drug Use: current Substance/Drug use frequency: daily Other substance/drug use details: medical card Lives independently: Yes Household members: significant other service: No Current occupational status: disabled Current occupational exposures/hazards: Yes Do you think of yourself as: Straight/Heterosexual Current gender identity: Male Physical Exam Narrative: EXAM NARRATIVE: Patient with mild distress secondary to pain but well-appearing, afebrile, vital signs stable on arrival. Abdomen soft, mild upper abdominal tenderness, no localizing signs, bowel sounds intact, no overlying skin changes, no CVA tenderness. Breathing comfortably on room air, saturating well, able to speak in full sentences. Normal sinus rhythm with no murmurs, no leg swelling, 2+ pulses throughout. GCS 15, moving all 4 extremities symmetrically and spontaneously. Course Vital Signs: Vital signs: Vital Signs Temperature 98.0 F 07/15/25 03:38 Pulse Rate 70 07/15/25 07:19 Respiratory Rate 16 07/15/25 04:53 Blood Pressure 91/63 07/15/25 07:19 Pulse Oximetry 99 07/15/25 07:19 Oxygen Delivery Me thod Room Air 07/15/25 07:00 MDM - Abdominal Pain Medical Decision Making -ddx: Acute on chronic pancreatitis, PUD, gastritis, esophagitis, postcholecystectomy syndrome, constipation,, dehydration, electrolyte abnormality, ACS - Patient with seemingly worsening upper abdominal pain worsening over the last week, burning sensation with some nausea, no actual vomiting, no reported fevers but gets intermittently chilled, history of chronic pancreatitis, has not drank in the last 20 years, recently had a lumbar spinal fusion. Will evaluate with cardiac/abdominal labs, get CT abdomen pelvis and will treat symptomatically with fluids, nausea and pain medication, Pepcid and reassess. - CT scan with findings of diarrheal illness, no concerns for acute surgical pathology. Laboratory studies overall reassuring for no endorgan damage, had mild hypokalemia that was repleted orally. Pain and symptoms were much improved after morphine, Reglan and fluids. He was able to p.o. challenge and deemed stable to be discharged with supportive care recommendations and dietary changes for his enteritis, given a prescription for Reglan and instructed to follow-up with PCP by the end of the week for reevaluation, strict return precautions given, discharged home. Lab Data 07/15/25 04:35 07/15/25 04:35 Labs/Radiology: Radiology Impressions Abdomen/Pelvis CT 07/15/25 04:03 IMPRESSION: 1. Persistent mild fluid distension of small bowel loops which may represent enteritis. 2. Stable fluid collections in the posterior paraspinal musculature at L3-L4. 3. Diffuse bladder wall thickening is likely exaggerated by underdistention. Cystitis not excluded. 4. Sigmoid diverticulosis without diverticulitis. 5. Remainder stable. Laboratory Results WBC 10.18 10^3/uL (3.29-11.43) 07/15/25 04:35 RBC 3.90 10^6/uL (3.85-5.65) 07/15/25 04:35 Hgb 12.80 g/dL (11.27-16.99) 07/15/25 04:35 Hct 35.6 % (37-53) L 07/15/25 04:35 MCV 91.3 fl (82-101) 07/15/25 04:35 MCH 32.8 pg (27-33) 07/15/25 04:35 MCHC 36.0 g/dL (30-55) 07/15/25 04:35 RDW 12.1 % (12.1-15.1) 07/15/25 04:35 Plt Count 313 10^3/cmm (157-399) 07/15/25 04:35 MPV 8.4 fL (7.4-10.4) 07/15/25 04:35 Neut % (Auto) 65.1 % 07/15/25 04:35 Lymph % (Auto) 25.2 % 07/15/25 04:35 [place] % (Auto) 6.6 % 07/15/25 04:35 Eos % (Auto) 1.7 % 07/15/25 04:35 Baso % (Auto) 0.6 % 07/15/25 04:35 Neut # (Auto) 6.63 10^3/uL (1.8-7.7) 07/15/25 04:35 Lymph # (Auto) 2.6 10^3/uL (0.8-4.8) 07/15/25 04:35 [place] # (Auto) 0.7 10^3/uL (0.2-0.9) 07/15/25 04:35 Eos # (Auto) 0.2 10^3/uL (0.0-0.8) 07/15/25 04:35 Baso # (Auto) 0.1 10^3/uL (0.0-0.1) 07/15/25 04:35 Nucleated RBC % (auto) 0 % 07/15/25 04:35 Nucleated RBCs # 0.0 /100WBC 07/15/25 04:35 Sodium 131 mmol/L (136-145) L 07/15/25 04:35 Potassium 2.9 mmol/L (3.5-5.1) L 07/15/25 04:35 Chloride 94 mmol/L (98-107) L 07/15/25 04:35 Carbon Dioxide 21 mmol/L (22-29) L 07/15/25 04:35 Anion Gap 18.9 (5-19) 07/15/25 04:35 BUN 8 mg/dL (6-20) 07/15/25 04:35 Creatinine 0.7 mg/dL (0.7-1.2) 07/15/25 04:35 GFR Calculation 118.0 mL/min (90-130) 07/15/25 04:35 Glucose 109 mg/dL (65-115) 07/15/25 04:35 Calculated Osmolality 271 mOsm/kg (285-295) L 07/15/25 04:35 Lactic Acid 1.6 mmol/L (0.5-2.2) 07/15/25 04:35 Calcium 9.0 mg/dL (8.5-10.5) 07/15/25 04:35 Total Bilirubin 1.0 mg/dL (0.15-1.2) 07/15/25 04:35 AST 16 U/L (0-40) 07/15/25 04:35 ALT 9 U/L (0-41) 07/15/25 04:35 Alkaline Phosphatase 90 U/L (40-130) 07/15/25 04:35 Troponin T Baseline 13 ng/L (0-15) 07/15/25 04:22 Troponin T 60 Minute 13.76 ng/L (0-15) 07/15/25 06:01 Delta Troponin T 0.76 ABS# (0-10) 07/15/25 06:01 C-Reactive Protein 3.0 mg/L (0.0-4.9) 07/15/25 04:35 Total Protein 6.5 g/dL (6.6-8.7) L 07/15/25 04:35 Albumin 4.1 g/dL (3.5-5.2) 07/15/25 04:35 Globulin 2.4 g/dL (1.3-4.6) 07/15/25 04:35 Lipase 39 U/L (13-60) 07/15/25 04:35 Urine Color Dark yellow (Yellow) A 07/15/25 04:11 Urine Appearance Clear (CLEAR) 07/15/25 04:11 Urine pH 6.0 (5-7) 07/15/25 04:11 Ur Specific [place] 1.019 (1.005-1.030) 07/15/25 04:11 Urine Protein Trace (Negative) A 07/15/25 04:11 Urine Glucose (UA) Negative (Normal) 07/15/25 04:11 Urine Ketones Trace (Negative) 07/15/25 04:11 Urine Blood 1+ (Negative) A 07/15/25 04:11 Urine Nitrate Negative (Negative) 07/15/25 04:11 Urine Bilirubin Negative (Negative) 07/15/25 04:11 Urine Urobilinogen 2.0 mg/dL (Negative) H 07/15/25 04:11 Ur Leukocyte Esterase Trace (Negative) A 07/15/25 04:11 Urine RBC 3-5 /hpf (0-2) 07/15/25 04:11 Urine WBC 0-5 /hpf (0-5) 07/15/25 04:11 Ur Squamous Epith Cells 0-5 /hpf (0-5) 07/15/25 04:11 Amorphous Sediment Not Reportable 07/15/25 04:11 Urine Bacteria None seen /hpf (NONE) 07/15/25 04:11 Hyaline Casts 0-4 /lpf H 07/15/25 04:11 All radiology interpretation(s) finalized by discharge Discharge Plan Discharge Patient Disposition: Home Clinical Impression: Enteritis, Acute hypokalemia Condition: Stable Prescriptions: New metoclopramide HCl [Reglan] 10 mg tablet 10 mg PO Q6H 7 Days Qty: 28 0RF No Action nitroglycerin 0.4 mg tablet, sublingual 0.4 mg sublingual Q5M PRN (Reason: chest pain) 30 Days Qty: 30 3RF quetiapine [Seroquel] 50 mg tablet 50 mg PO BEDTIME Qty: 30 2RF mirtazapine 15 mg tablet 15 mg PO .HS Qty: 30 2RF buspirone 30 mg tablet 30 mg PO BID Qty: 60 2RF clonazepam [Klonopin] 0.5 mg tablet 0.5 mg PO TID Qty: 90 1RF aspirin 81 mg tablet,delayed release (DR/EC) 81 mg PO QAM Qty: 90 1RF clopidogrel 75 mg tablet 75 mg PO DAILY Qty: 90 1RF tamsulosin 0.4 mg capsule 0.4 mg PO QAM Qty: 90 0RF zonisamide 100 mg capsule 100 mg PO DAILY Qty: 120 0RF hydrocodone-acetaminophen 7.5-325 mg tablet 1 tab PO Q4H PRN (Reason: pain) 7 Days Qty: 42 0RF potassium chloride 20 mEq tablet extended release 20 meq PO DAILY isosorbide mononitrate 30 mg tablet extended release 24 hr 30 mg PO DAILY Rx Instructions: TAKE 1 TABLET BY MOUTH DAILY nicotine 21 mg/24 hr patch 24 hour 21 mg topical DAILY ranolazine 500 mg tablet extended release 12 hr 500 mg PO BID Rx Instructions: TAKE 1 TABLET BY MOUTH TWICE DAILY hydrocodone-acetaminophen 5-325 mg tablet 1 - 2 tab PO .Q4-6H Qty: 40 0RF Daytime and Nighttime Cold 2-5-10-325 mg Tablets, Sequential 2 ea PO Q6H ondansetron 4 mg tablet,disintegrating 4 mg PO Q6H PRN (Reason: nausea and vomiting) Qty: 14 0RF atorvastatin 80 mg tablet 80 mg PO QAM Discharge Orders: Discharge ED (Routine); Ordered 07/15/25 Ordered By: Wu Easton Referrals: Wang Bethea DO [Primary Care Provider, Family Practice] Discharge Diet: Clear Liquid Discharge Activity: Resume usual activity Patient Instructions: Abdominal Pain (ED), Opioid Safety, Pain Management, Patient Portal & Brisa Instructions Activity Restrictions/Additional Instructions: You were seen for your abdominal pain, you were evaluated with labs and CT imaging which were ultimately reassuring, you most likely have a persistent viral stomach bug causing your burning abdominal pain. You improved with fluids and medication and were deemed stable to be discharged home. Eat a small bland diet over the next few days, ensure you stay hydrated, use the Reglan, 10 mg every 8 hours as needed for nausea. Continue your other pain medication as prescribed. Follow-up with your primary care physician later this week for reevaluation. Return to the ED with severe worsening of her pain, continuous vomiting, fevers that do not improve with Tylenol, any other emergent concerns. 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
[2025-07-15 04:42] LABS: Hematocrit 35.6 % (37-53); Hemoglobin 12.80 g/dL (11.27-16.99); Mean Corpuscular HGB Conc 36.0 g/dL (30-55); Mean Corpuscular Hemoglobin 32.8 pg (27-33); Mean Corpuscular Volume 91.3 fl (82-101); Nucleated Red Blood Cells % 0 %; Platelet Count 313 10^3/cmm (157-399); Red Blood Count 3.90 10^6/uL (3.85-5.65); White Blood Count 10.18 10^3/uL (3.29-11.43)
[2025-07-15] MEDS: metoclopramide 5 mg/mL SDV 2 mL 10 MG IVP (04:52)
[2025-07-15] MEDS: morphine 4 mg/mL SDV 1 mL IVP (04:53)
[2025-07-15 04:56] LABS: Troponin(5th) Baseline 13 ng/L (0-15)
[2025-07-15 04:58] LABS: Alanine Aminotransferase 9 U/L (0-41); Albumin Level 4.1 g/dL (3.5-5.2); Alkaline Phosphatase 90 U/L (40-130); Aspartate Amino Transferase 16 U/L (0-40); Blood Urea Nitrogen 8 mg/dL (6-20); Calcium 9.0 mg/dL (8.5-10.5); Carbon Dioxide 21 mmol/L (22-29); Chloride 94 mmol/L (98-107); Globulin 2.4 g/dL (1.3-4.6); Glucose 109 mg/dL (65-115); Lipase 39 U/L (13-60); Osmolality Calculated 271 mOsm/kg (285-295); Sodium 131 mmol/L (136-145); Total Protein 6.5 g/dL (6.6-8.7)
[2025-07-15 04:59] LABS: Lactic Sepsis W/Reflex 1.6 mmol/L (0.5-2.2)
[2025-07-15 05:10] LABS: Anion Gap 18.9 (5-19)
[2025-07-15 05:13] LABS: Potassium 2.9 mmol/L (3.5-5.1)
[2025-07-15] MEDS: iohexol 350 mg/mL 500 mL Btl (per mL) IV (05:35)
[2025-07-15] MEDS: potassium chloride oral liq 20 mEq/15 mL UDC 40 MEQ PO (05:51)
== END 2025-07-15 07:20 | disposition home or self-care (01) ==
PROVIDERS: Emergency Provider Student in an Organized Health Care Education/Training Program; PCP Family Medicine
DX: K52.9 Noninfective gastroenteritis and colitis, unspecified (principal); E87.6 Hypokalemia; Z79.82 Long term (current) use of aspirin; Z79.02 Long term (current) use of antithrombotics/antiplatelets; I25.10 Atherosclerotic heart disease of native coronary artery without angina pectoris; J44.9 Chronic obstructive pulmonary disease, unspecified; I11.0 Hypertensive heart disease with heart failure; I50.20 Unspecified systolic (congestive) heart failure; E78.2 Mixed hyperlipidemia; Z95.5 Presence of coronary angioplasty implant and graft; Z72.0 Tobacco use
CPT/HCPCS: 36415; 74177; 80053; 81001; 83605; 83690; 84484; 85025; 86140; 93005; 96361; 96374; 96375; 99285; J1885; J2270; J2765; J3490; J7030; J9999

== ENCOUNTER → 2025-07-27 11:31 | Outpatient (BNVA) | payer MEDICAID, SELFPAY | PROVIDERS: PCP Family Medicine; Visit Provider Family Medicine | DX: N28.9 Disorder of kidney and ureter, unspecified (principal); E87.6 Hypokalemia | CPT/HCPCS: 80048 ==